=== PATIENT | female | born 1975 | race Caucasian/White ===

== ENCOUNTER 2023-05-20 16:00 | Emergency (ER) | payer OTHER, SELFPAY ==
[2023-05-20 16:04] VITALS: BP 162/102; PULSE 102; RESP 18; TEMP 36.8; O2SAT 99; BMI 54.9
--- NOTE | 2023-05-20 16:22 | ED.URI1 ---
HPI - URI/Sore Throat General Chief Complaint: Upper Respiratory Infection Stated Complaint: COUGH Time Seen by Provider: 05/20/23 16:11 Source: patient History of Present Illness HPI Narrative: patient's here with continued cough congestion. She tested eight or nine times at home for Covid it is negative. One day she felt so bad that she could hardly get out of bed she had such terrible aches and pains and chills. She did not test for influenza. She was on an antibiotic that she was taking. She still today has a little bit of a left earache but no right ear pain. She does not have a sore throat today. She is a nonsmoker. She does have an albuterol inhaler at home but has not been using it. Related Data Allergies Allergy/AdvReac Type Severity Reaction Status Date / Time ibuprofen Allergy Severe Verified 05/20/23 16:11 [facility] Social History Smoking status: Never smoker Exam Narrative Exam Narrative: well-hydrated well-nourished female with some elevation of her blood pressure. She says her blood pressure has been running high and she's got a B and conversation with her primary care doctor about that this coming week. She did not have any nausea vomiting or diarrhea. On HEENT both tympanic membranes are well visualized are normal with no erythema bulging or bullae. Pharynx and airway are normal. She on auscultation of her chest has slight end expiratory wheezing with forced exhalation only otherwise no rales or rhonchi. Heart sounds are normal. Skin integument are warm and dry no evidence dehydration. Constitutional Vital Signs, click to edit/add: Last Vital Signs Temp 98.3 F 05/20/23 16:04 Pulse 102 H 05/20/23 16:04 Resp 18 05/20/23 16:04 BP 162/102 H 05/20/23 16:04 Pulse Ox 99 05/20/23 16:04 O2 Del Method Room Air 05/20/23 16:04 Course Vital Signs Vital signs: Vital Signs Temperature 98.3 F 05/20/23 16:04 Pulse Rate 102 H 05/20/23 16:04 Respiratory Rate 18 05/20/23 16:04 Blood Pressure 162/102 H 05/20/23 16:04 Pulse Oximetry 99 05/20/23 16:04 Oxygen Delivery Method Room Air 05/20/23 16:04 Temperature 98.3 F 05/20/23 16:04 Pulse Rate 102 H 05/20/23 16:04 Respiratory Rate 18 05/20/23 16:04 Blood Pressure 162/102 H 05/20/23 16:04 Pulse Oximetry 99 05/20/23 16:04 Oxygen Delivery Method Room Air 05/20/23 16:04 MDM - URI/Sore Throat MDM Narrative Medical decision making narrative: patient presents status post severe viremia with persisting cough. Pulse oximetry is ninety-nine percent on room air her lungs are clear. I don't believe she'll benefit from a chest x-ray today. I will start her on prednisone burst and also give her some bronchodilators. Discharge Plan Discharge Chief Complaint: Upper Respiratory Infection Clinical Impression: Exacerbation of reactive airway disease Patient Disposition: Home, Self-Care Time of Disposition Decision: 16:25 Additional Instructions: prednisone for seven days/uses inhaler as needed Stand Alone Forms: Portal Instructions
== END 2023-05-20 16:44 | disposition home or self-care (01) ==
PROVIDERS: Emergency Provider Emergency Medicine Emergency Medical Services
DX: J45.901 Unspecified asthma with (acute) exacerbation (principal)
CPT/HCPCS: 99284

== ENCOUNTER 2024-03-17 09:05 | Emergency (ER) | payer OTHER, SELFPAY ==
[2024-03-17 09:10] VITALS: BP 147/77; PULSE 67; TEMP 36.7; O2SAT 100; BMI 54.9
--- OUTSIDE RECORDS SUMMARY | 2024-03-17 09:13 | XMS_ITS | CCD ---
Author Organization [facility] Care Team Providers Care Beauty Consultant Name Role Phone Might, Brianna Chavez Primary Care Provider AL-BRENDA AUSTIN A Referring Unavailable MIGHT, BRIANNA Chavez Primary Care Unavailable Might, Brianna Chavez Primary Care Provider [phone] MightBrianna Primary Care Provider [phone] MightBrianna Primary Care Provider [phone] Might GROUT MACHINE OPERATOR - SAND CONTROL WORKERBrianna Primary Care Provider Kaye Kruse Primary Care Physician DR CRAIG Cantor Admitting Unavailable ERNIE FLORES Consulting Unavailable DR CRAIG BUSTILLO Attending Unavailable PING OWENS Consulting Unavailable Might GROUT MACHINE OPERATOR - SAND CONTROL WORKERBrianna Primary Care Provider Might GROUT MACHINE OPERATOR - SAND CONTROL WORKER, Brianna W Primary Care Provider Might GROUT MACHINE OPERATOR - SAND CONTROL WORKER, Brianna W Primary Care Provider Might GROUT MACHINE OPERATOR - SAND CONTROL WORKERBrianna W Primary Care Provider Nithin Zee Attending Unavailab le Nithin Zee Admitting Unavailab le Unavailable Primary Care Provider Unavailabl e Might GROUT MACHINE OPERATOR - SAND CONTROL WORKERBrianna W Primary Care Provider MIGHT, BRIANNA Chavez Primary Care Unavailable MIGHT, BRIANNA Chavez Primary Care Unavailable JESSICA CHAVES Attending Unavailable MIGHTBRIANNA Primary Care Unavailable JEN HELMS Referring Unavailable MIGHT, BRIANNA Chavez Primary Care Unavailable BRADLY MCCAIN Referring Unavailable MIGHT, BRIANNA Chavez Primary Care Unavailable MIGHT, BRIANNA Chavez Primary Care Unavailable AL-NSWILFREDO, MOHMASHA A Referring Unavailable AL-BRENDA AUSTIN A Referring Unavailable MIGHT, BRIANNA Chavez Primary Care Unavailable MIGHT, BRIANNA Chavez Primary Care Unavailable MIGHT, BRIANNA Chavez Referring Unavailable AL-TELLO, ADNAN R Referring Unavailable MIGHT, BRIANNA W Primary Care Unavailable KALE CARTER Attending Unavailable BRIANNA MITCHELL Primary Care Unavailable JOVAN ALBARRAN Attending Unavailable BRIANNA MITCHELL Primary Care Unavailable WAYNE JOSEPH Referring Unavailable JANELL SIGALA Attending Unavailable WAYNE JOSEPH Attending Unavailable SELF, SELF Referring Unavailable Allergies Allergy Classification Reported Allergen(s) Allergy Type Date of Onset Reaction(s) Facility Bee/Wasp/Ant Venom (8 sources) bee venom Substance Allergy 7 Anaphylaxis [facility] Latex (8 sources) Latex Substance Allergy 4 Hives, Itching, Swelling [facility] Saccharin (7 sources) Saccharin Drug Allergy 8 Other (See Comments) [facility] Work Phone: (20 sources) bee venom Propensity to adverse reactions to drug 7 Anaphylaxis, Swelling [place], [place] (20 sources) Latex Propensity to adverse reactions to drug 4 Hives, Itching, Swelling [place] (20 sources) Saccharin Drug Allergy 8 Other (See Comments) [place] (20 sources) Aspartame And Phenylalanine Propensity to adverse reactions to drug 8 Other (See Comments) [place] (20 sources) Flavoring Agent Propensity to adverse reactions to drug 8 Other (See Comments), Nausea and Vomiting [place] (20 sources) Sucralose Propensity to adverse reactions to drug 8 Other (See Comments) [facility] [place] ([facility] [place]) Latex Drug allergy (disorder) 1 [facility] (2 sources) Ibuprofen Drug Allergy 3 [facility] (2 sources) Propofol Drug Allergy 4 [employer] (2 sources) Wound Dressing Adhesive Propensity to adverse reactions to drug 4 Rash, Swelling [facility] Medications Current Medications Medication Drug Class(es) Dates Sig (Normalized) Sig (Original) acetaminophen 325 mg / HYDROcodone bitartrate 5 mg oral tablet (5 sources) Opioid Agonist Start: 10-23-2020 End: 10-26-2020 HYDROcodone-acetam inophen (NORCO) 5-325 MG per tablet Indications: Pain, dental Take 1 tablet by mouth every 6 hours as needed for Pain for up to 3 days. Intended supply: 3 days. Take lowest dose possible to manage pain 12 tablet 0 10/23/2020 10/26/2020 Active Start: 06-28-2020 hydrocodone-ac etaminophen (NORCO) tablet 5-325 mg (STARTER PACK) Start: 06-28-2020 End: 06-28-2020 HYDROcodone-acetaminophen (N ORCO) 5-325 MG per tablet 2 tablet Start: 11-03-2019 End: 11-03-2019 HYDROcodone-acetaminophen (N ORCO) 5-325 MG per tablet 2 tablet Start: 04-07-2019 End: 04-10-2019 take 1 tablet by mouth every six hours as needed for pain, then take 1 tablet by mouth as needed for pain HYDROcodone-acetaminophen (NORCO) 5-325 MG per tablet Indications: Acute parotitis Take 1 tablet by mouth every 6 hours as needed for Pain for up to 3 days. Intended supply: 3 days. Take lowest dose possible to manage pain 10 tablet 0 04/07/2019 04/10/2019 Active [id number] 200 actuat albuterol 0.09 mg/actuat metered dose inhaler (2 sources) beta2-Adrenergic Agonist Start: 05-01-2023 take 2 puff(s) by mouth four times daily for wheezing albuterol sulfate HFA (PROVENTIL;VENTOLIN;PROAIR) 108 (90 Base) MCG/ACT inhaler inhale 2 puffs by mouth and INTO THE LUNGS four times a day if needed for wheezing 8.5 g 05/01/2023 Active amitriptyline hydrochloride 25 mg oral tablet (13 sources) Tricyclic Antidepressant Start: 07-27-2023 take 1 tablet by mouth once daily amitriptyline (ELAVIL) 25 MG tablet Take 1 tablet by mouth nightly 30 tablet 5 07/27/2023 Active Start: 01-05-2023 take 1 tablet by caesar th once daily amitriptyline (ELAVIL) 25 MG tablet Take 1 tablet by mouth nightly 30 tablet 5 01/05/2023 Active Start: 06-16-2022 End: 07-16-2022 take 1 tablet by mouth once daily amitriptyline (ELAVIL) 25 MG tablet Take 1 tablet by mouth nightly 30 tablet 5 06/16/2022 07/16/2022 Active Start: 07-29-2021 End: 08-28-2021 take 1 tablet by mouth once daily amitriptyline (ELAVIL) 25 MG tablet Indications: Migraines Take 1 tablet by mouth nightly 30 tablet 5 07/29/2021 08/28/2021 Active Start: 01-11-2021 take 1 tablet by caesar th once daily amitriptyline (ELAVIL) 25 MG tablet Indications: Chronic migraine Take 1 tablet by mouth nightly 30 tablet 5 01/11/2021 Active Start: 06-11-2020 End: 09-16-2020 take 1 tablet by mouth once daily amitriptyline (ELAVIL) 25 MG tablet Indications: Chronic migraine Take 1 tablet by mouth nightly 30 tablet 2 08/17/2020 09/16/2020 Active amoxicillin 875 mg oral tablet (2 sources) Penicillin-class Antibacterial Start: 02-02-2019 End: 02-12-2019 take 1 tablet by mouth twice daily amoxicillin (AMOXIL) 875 MG tablet Take 1 tablet by mouth 2 times daily for 10 days 20 tablet 0 02/02/2019 02/12/2019 Active Start: 02-02-2019 End: 02-02-2019 amoxicillin (AMOXIL) capsule 500 mg azelastine hydrochloride 0.137 mg/actuat metered dose nasal spray (1 source) Histamine-1 Receptor Antagonist Start: 02-19-2023 take 2 spray(s) nasal route twice daily azelastine (ASTELIN) 0.1 % nasal spray 2 sprays by Nasal route 2 times daily Use in each nostril as directed 30 mL 0 02/19/2023 Active B-D 3CC LUER-MARYANNE SYR 25GX1 25G X 1 3 ML MISC (1 source) Start: 08-18-2023 B-D 3CC LUER-MARYANNE SYR 25GX1 25G X 1 3 ML MISC use as directed 08/18/2023 Active benzonatate 200 mg oral capsule (1 source) Non-narcotic Antitussive Start: 04-04-2020 End: 04-14-2020 take 1 capsule by mouth three times daily as needed for cough benzonatate (TESSALON) 200 MG capsule Take 1 capsule by mouth 3 times daily as needed for Cough 30 capsule 0 04/04/2020 04/14/2020 Active Blood Pressure Monitor MISC (2 sources) Start: 07-21-2022 Blood Pressure Monitor MISC Indications: Transient elevated blood pressure 1 each by Does not apply route daily 1 each 07/21/2022 Active Start: 07-21-2022 Blood Pressure Monitor MISC Indications: Transient elevated blood pressure 1 each by Does not apply route daily 1 each 0 07/21/2022 Active busPIRone hydrochloride 15 mg oral tablet (20 sources) Start: 07-20-2022 take 1 tablet by mouth at bedtime busPIRone (BUSPAR) 15 MG tablet Take 15 mg by mouth in the morning and at bedtime 07/20/2022 Active Start: 03-17-2022 take 1 tablet by caesar th twice daily busPIRone (BUSPAR) 7.5 MG tablet take 1 tablet by mouth twice a day 0 03/17/2022 Active Start: 06-11-2021 busPIRone (BUS PAR) 5 MG tablet 5 mg daily 0 06/11/2021 Active Start: 06-11-2020 take 1 tablet by caesar th twice daily busPIRone (BUSPAR) 10 MG tablet Indications: Anxiety and depression Take 1 tablet by mouth 2 times daily 180 tablet 1 06/11/2020 Active Start: 12-23-2019 take 1 tablet by caesar th twice daily busPIRone (BUSPAR) 30 MG tablet Indications: Anxiety and depression take 1 tablet by mouth twice a day 180 tablet 1 12/23/2019 Active Start: 05-31-2019 take 1 tablet by caesar th twice daily busPIRone (BUSPAR) 30 MG tablet Indications: Anxiety and depression take 1 tablet by mouth twice a day 180 tablet 1 05/31/2019 Active Start: 10-24-2018 take 1 tablet by caesar th twice daily busPIRone (BUSPAR) 30 MG tablet Indications: Anxiety and depression take 1 tablet by mouth twice a day 180 tablet 3 10/24/2018 Active calcium carbonate 648 mg oral tablet (3 sources) Start: 11-25-2020 End: 11-25-2021 take 1 tablet by mouth three times daily calcium carbonate 648 MG TABS Indications: Hypocalcemia Take 1 tablet by mouth 3 times daily 90 tablet 0 11/25/2020 11/25/2021 Active take 1 tablet by mouth three gómez es daily calcium carbonate 650 mg calcium (1,625 mg) tablet take 1 tablet by oral route 3 times a day cephalexin 500 mg oral capsule (2 sources) Cephalosporin Antibacterial Start: 02-01-2024 End: 02-08-2024 take 1 capsule by mouth three times daily cephALEXin (KEFLEX) 500 MG capsule Take 1 capsule by mouth 3 times daily for 7 days 21 capsule 02/01/2024 02/08/2024 Active Start: 02-01-2024 End: 02-01-2024 take 1 dose by mouth once 500 mg, Oral, ONCE, 1 dose, On Mari 02/01/24 at 0100, Antimicrobial Indications: Urinary Tract Infection cholecalciferol 0.125 mg oral tablet (3 sources) Vitamin D Start: 11-25-2020 take 1 tablet by mouth once daily vitamin D-3 (CHOLECALCIFEROL) 125 MCG (5000 UT) TABS Take 1 tablet by mouth daily 90 tablet 0 11/26/2020 Active ciprofloxacin 250 mg oral tablet (1 source) Quinolone Antimicrobial Start: 07-24-2023 End: 07-29-2023 take 1 tablet by mouth twice daily ciprofloxacin (CIPRO) 250 MG tablet Indications: Acute UTI Take 1 tablet by mouth 2 times daily for 5 days 10 tablet 0 07/24/2023 07/29/2023 Active dicyclomine hydrochloride 20 mg oral tablet (20 sources) Anticholinergic Start: 05-21-2021 take 1 tablet by mouth three times daily for diarrhea dicyclomine (BENTYL) 20 MG tablet Indications: Irritable bowel syndrome with diarrhea take 1 tablet by mouth three times a day if needed for cramping and diarrhea 90 tablet 2 10/25/2023 Active Start: 11-13-2019 End: 09-22-2020 take 1 tablet by mouth every four hours as needed for pain dicyclomine (BENTYL) 20 MG tablet Take 1 tablet by mouth every 4 hours as needed (Abdominal pain) 30 tablet 0 09/22/2020 Active doxepin hydrochloride 25 mg oral capsule (1 source) Tricyclic Antidepressant Start: 01-15-2021 take 1 capsule by mouth three times daily for anxiety doxepin (SINEQUAN) 25 MG capsule take 1 capsule by mouth three times a day if needed for anxiety 0 01/15/2021 Active ergocalciferol 1.25 mg oral capsule (15 sources) Provitamin D2 Compound Start: 10-01-2019 take 1 capsule by mouth every week vitamin D (ERGOCALCIFEROL) 1.25 MG (99412 UT) CAPS capsule Take 1 capsule by mouth once a week 12 capsule 1 10/01/2019 Active Start: 07-18-2019 take 1 capsule by mo uth every week vitamin D (ERGOCALCIFEROL) 1.25 MG (71705 UT) CAPS capsule Take 1 capsule by mouth once a week 12 capsule 1 07/18/2019 Active etodolac 400 mg oral tablet (3 sources) Nonsteroidal Anti-inflammatory Drug Start: 11-13-2019 take 1 tablet by mouth twice daily etodolac (LODINE) 400 MG tablet Take 1 tablet by mouth 2 times daily 30 tablet 0 11/13/2019 Active FLUoxetine 10 mg oral capsule (4 sources) Serotonin Reuptake Inhibitor Start: 03-20-2023 take 1 capsule by mouth once daily FLUoxetine (PROZAC) 10 MG capsule Take 1 capsule by mouth nightly 03/20/2023 Active gabapentin 300 mg oral capsule (1 source) Anti-epileptic Agent Start: 05-26-2022 gabapentin (NEURONTIN) 300 MG capsule hydrOXYzine pamoate 50 mg oral capsule (2 sources) Antihistamine Start: 03-16-2022 take 1 capsule by mouth three times daily hydrOXYzine pamoate (VISTARIL) 50 MG capsule take 1 TO 2 capsules by mouth up to three times a day if needed for anxiety 0 03/16/2022 Active Start: 08-05-2019 End: 09-04-2019 take 1 tablet by mouth every eight hours as needed for anxiety hydrOXYzine (ATARAX) 25 MG tablet Indications: Anxiety and depression Take 1 tablet by mouth every 8 hours as needed for Anxiety 90 tablet 0 08/05/2019 09/04/2019 Active lidocaine 0.05 mg/mg medicated patch (2 sources) Antiarrhythmic, Amide Local Anesthetic Start: 11-03-2019 End: 11-13-2019 lidocaine (LIDODERM) 5 % Place 1 patch onto the skin daily for 10 days 12 hours on, 12 hours off. 10 patch 0 11/03/2019 11/13/2019 Active lisinopril 20 mg oral tablet (4 sources) Angiotensin Converting Enzyme Inhibitor Start: 08-08-2023 take 1 tablet by mouth once daily lisinopril (PRINIVIL;ZESTRIL) 20 MG tablet Indications: Primary hypertension Take 1 tablet by mouth daily 90 tablet 3 08/08/2023 Active Start: 07-24-2023 take 1 tablet by caesar th once daily lisinopril (PRINIVIL;ZESTRIL) 10 MG tablet Indications: Primary hypertension Take 1 tablet by mouth daily 90 tablet 1 07/24/2023 Active lurasidone hydrochloride 80 mg oral tablet (20 sources) Atypical Antipsychotic Start: 09-20-2023 take 1 tablet by mouth once daily lurasidone (LATUDA) 80 MG TABS tablet Take 1 tablet by mouth nightly 09/20/2023 Active Start: 03-20-2023 lurasidone (LA TUDA) 60 MG TABS tablet Take 1 tablet by mouth 0 03/20/2023 Active Start: 01-19-2021 take 1 tablet by caesar th once daily at mealtime LATUDA 40 MG TABS tablet take 1 tablet by mouth once daily with food AT LEAST 350 CALORIES 0 01/19/2021 Active Start: 06-18-2019 take 1 tablet by caesar th once daily at mealtime LATUDA 20 MG TABS tablet Indications: Anxiety and depression take 1 tablet by mouth once daily with food 90 tablet 1 04/10/2020 Active lurasidone HCl ( Latuda) 80 MG tablet Take 40 mg by mouth daily with dinner. Active Magic Mouthwash (MIRACLE MOUTHWASH) (9 sources) Start: 02-02-2019 Magic Mouthwas h (MIRACLE MOUTHWASH) Swish and spit 5 mLs 4 times daily as needed for Irritation 240 mL 0 02/02/2019 Active Start: 12-24-2018 Magic Mouthwas h (MIRACLE MOUTHWASH) 1 part viscous lidocaine 2% +1 part Maalox +1 part diphenhydramine 12.5 mg per 5 mL elixir Swish, gargle and spit 1-2 teaspoonfuls every 6 hours as needed for sore throat. 240 mL 0 12/24/2018 Active methylPREDNISolone 4 mg oral tablet (1 source) Corticosteroid Start: 11-25-2020 End: 12-01-2020 methylPREDNISolone (MEDROL DOSEPACK) 4 MG tablet Take by mouth. 1 kit 0 11/25/2020 12/01/2020 Active mirtazapine 15 mg oral tablet (1 source) Start: 05-26-2022 mirtazapine (R EMERON) 15 MG tablet NEEDLE, DISP, 25 G 25G X 1 MISC (19 sources) Start: 01-05-2022 NEEDLE, DISP, 25 G 25G X 1 MISC Use for B12 injections daily for 5 days, then weekly for 4 weeks, then monthly 25 each 01/05/2022 Active Start: 07-22-2020 NEEDLE, DISP, 25 G 25G X 1 MISC Use for B12 injection monthly 10 each 07/22/2020 Active Nerve Stimulator (TENS THERA PY REPLACE BACK PADS) MISC (20 sources) Start: 11-25-2020 Nerve Stimulat or (TENS THERAPY REPLACE BACK PADS) MISC Indications: Osteoarthritis of spine, unspecified spinal osteoarthritis complication status, unspecified spinal region , Chronic bilateral low back pain with right-sided sciatica 1 each by Does not apply route as needed (back pain) 10 each 11/25/2020 Active Start: 11-25-2020 Nerve Stimulat or (TENS THERAPY REPLACE BACK PADS) MISC Indications: Osteoarthritis of spine, unspecified spinal osteoarthritis complication status, unspecified spinal region , Chronic bilateral low back pain without sciatica 1 each by Does not apply route as needed (back pain) 10 each 11/25/2020 Active Start: 06-11-2020 Nerve Stimulat or (TENS THERAPY REPLACE BACK PADS) MISC Indications: Chronic bilateral low back pain without sciatica 1 each by Does not apply route as needed (back pain) 10 each 06/11/2020 Active nystatin 100 unt/mg topical ointment (18 sources) Polyene Antifungal Start: 07-24-2023 nystatin (M YCOSTATIN) 587083 UNIT/GM ointment Apply topically 2 times daily. 30 g 07/24/2023 Active Start: 01-03-2022 nystatin (MYCO STATIN) 224140 UNIT/GM ointment Indications: Candidal intertrigo Apply topically 2 times daily. 30 g 0 01/03/2022 Active Start: 11-25-2020 nystatin (MYCO STATIN) 617253 UNIT/GM cream Apply topically 2 times daily. 30 g 0 11/25/2020 Active Start: 11-03-2019 nystatin (MYCO STATIN) 491845 UNIT/GM cream Apply topically 2 times daily. 30 g 0 11/03/2019 Active nystatin 100,000 unit/gram topical cream apply to the affected area(s) by topical route 2 times per day as needed ondansetron 4 mg disintegrating oral tablet (20 sources) Serotonin-3 Receptor Antagonist Start: 02-01-2024 take 1 tablet by mouth three times daily as needed for nausea ondansetron (ZOFRAN-ODT) 4 MG disintegrating tablet Take 1 tablet by mouth 3 times daily as needed for Nausea or Vomiting 20 tablet 02/01/2024 Active Start: 01-31-2024 End: 01-31-2024 4 mg, IntraVENous, ONCE, 1 d ose, On Mon01/31/24 at 2200 Start: 02-10-2022 take 1 tablet by caesar th every four hours as needed for nausea ondansetron (ZOFRAN) 4 MG tablet Take 1 tablet by mouth every 4 hours as needed for Nausea or Vomiting 12 tablet 02/10/2022 Active Start: 07-06-2021 take 1 tablet by caesar th every four hours as needed for nausea ondansetron (ZOFRAN) 4 MG tablet Take 1 tablet by mouth every 4 hours as needed for Nausea or Vomiting 12 tablet 0 07/06/2021 Active Start: 11-25-2020 take 1 tablet by caesar th every four hours as needed for nausea ondansetron (ZOFRAN) 4 MG tablet Take 1 tablet by mouth every 4 hours as needed for Nausea or Vomiting 12 tablet 0 11/25/2020 Active Start: 06-28-2020 End: 07-18-2020 take 1 tablet by mouth every eight hours as needed for nausea ondansetron (ZOFRAN ODT) 4 MG disintegrating tablet Take 1 tablet by mouth every 8 hours as needed for Nausea or Vomiting 20 tablet 0 06/28/2020 07/18/2020 Active Start: 11-13-2019 take 1 tablet by caesar th every four hours as needed for nausea ondansetron (ZOFRAN) 4 MG tablet Take 1 tablet by mouth every 4 hours as needed for Nausea or Vomiting 15 tablet 0 11/13/2019 Active Start: 11-13-2019 End: 11-13-2019 ondansetron (ZOFRAN) injecti on 4 mg Start: 06-23-2019 End: 08-09-2019 take 1 tablet by mouth every eight hours as needed for nausea ondansetron (ZOFRAN ODT) 4 MG disintegrating tablet Take 1 tablet by mouth every 8 hours as needed for Nausea or Vomiting 15 tablet 0 06/23/2019 08/09/2019 Discontinued (Therapy completed) Start: 03-20-2018 End: 02-02-2019 take 1 tablet by mouth every eight hours as needed for nausea ondansetron (ZOFRAN ODT) 4 MG disintegrating tablet Take 1 tablet by mouth every 8 hours as needed for Nausea or Vomiting 20 tablet 0 03/20/2018 02/02/2019 Discontinued (LIST CLEANUP) take 1 tablet by caesar th every eight hours as needed Ondansetron 4 MG tablet Take 1 tablet by mouth every 8 hours as needed for Nausea / Vomiting. Active penicillin v potassium 500 mg oral tablet (2 sources) Start: 10-23-2020 End: 11-02-2020 take 1 tablet by mouth three times daily penicillin v potassium (VEETID) 500 MG tablet Take 1 tablet by mouth 3 times daily for 10 days 30 tablet 0 10/23/2020 11/02/2020 Active phentermine hydrochloride 37.5 mg oral tablet (1 source) Sympathomimetic Amine Anorectic Start: 02-22-2024 End: 03-23-2024 take 1 tablet by mouth once daily before breakfast phentermine 37.5 MG tablet Indications: Morbid obesity with body mass index of 50 or higher Take 1 tablet by mouth every morning before breakfast. 30 tablet 02/22/2024 03/23/2024 Active polymyxin b 42835 unt/ml / trimethoprim 1 mg/ml ophthalmic solution (1 source) Dihydrofolate Reductase Inhibitor Antibacterial, Polymyxin-class Antibacterial Start: 06-20-2022 End: 06-30-2022 take 1 drop(s) into the eye(s) every four hours trimethoprim-po lymyxin b (POLYTRIM) 85333-4.1 UNIT/ML-% ophthalmic solution Place 1 drop into both eyes every 4 hours for 10 days 10 mL 0 06/20/2022 06/30/2022 Active Vit-Fe Fumarate-FA (PRENATABS FA) 29-1 MG TABS (9 sources) Start: 07-14-2020 take 1 tablet by mouth once daily Vit-Fe Fumarate-FA (PRENATABS FA) 29-1 MG TABS Indications: Iron deficiency anemia, unspecified iron deficiency anemia type Take 1 tablet by mouth daily 90 tablet 0 07/14/2020 Active propranolol hydrochloride 20 mg oral tablet (13 sources) beta-Adrenergic Patrick Start: 01-27-2021 take 1 tablet by mouth twice daily for anxiety propranolol (INDERAL) 20 MG tablet take 1 tablet by mouth up to twice a day if needed for anxiety 01/27/2021 Active sodium chloride flush 0.9 % injection 3 mL (1 source) Start: 01-31-2024 sodium chloride flush 0.9 % injection 3 mL sulfamethoxazole 800 mg / trimethoprim 160 mg oral tablet (1 source) Dihydrofolate Reductase Inhibitor Antibacterial, Sulfonamide Antimicrobial Start: 04-07-2019 End: 04-14-2019 take 1 tablet by mouth twice daily sulfamethoxazol e-trimethoprim (BACTRIM DS;SEPTRA DS) 800-160 MG per tablet Take 1 tablet by mouth 2 times daily for 7 days 14 tablet 0 04/07/2019 04/14/2019 Active SUMAtriptan 50 mg oral tablet (7 sources) Serotonin-1b and Serotonin-1d Receptor Agonist Start: 02-12-2021 SUMAtriptan (IMITREX) tablet 50 mg Start: 01-11-2021 take 1 tablet by caesar th once as needed SUMAtriptan (IMITREX) 50 MG tablet Take 1 tablet by mouth once as needed for Migraine 9 tablet 3 06/16/2022 Active SYRINGE-NEEDLE, DISP, 3 ML ( B-D INTE[employer]RA SYRINGE) 22G X 1-1/2 3 ML Misc (2 sources) Tens Unit MISC (17 sources) Start: 11-25-2020 Tens Unit MISC Indications: Osteoarthritis of spine, unspecified spinal osteoarthritis complication status, unspecified spinal region by Does not apply route 1 each 0 11/25/2020 Active Start: 11-25-2020 Tens Unit MISC Indications: Osteoarthritis of spine, unspecified spinal osteoarthritis complication status, unspecified spinal region , Chronic bilateral low back pain without sciatica by Does not apply route 1 each 0 11/25/2020 Active Start: 06-11-2020 Tens Unit MISC Indications: Chronic bilateral low back pain without sciatica by Does not apply route 1 each 0 06/11/2020 Active tiZANidine 4 mg oral tablet (20 sources) Central alpha-2 Adrenergic Agonist Start: 11-09-2023 take 1 tablet by mouth once daily at bedtime tiZANidine (ZANAFLEX) 4 MG tablet Indications: Chronic bilateral low back pain without sciatica take 1 tablet by mouth every morning and at bedtime 60 tablet 5 11/09/2023 Active Start: 06-05-2023 take 1 tablet by caesar once daily at bedtime tiZANidine (ZANAFLEX) 4 MG tablet Indications: Chronic bilateral low back pain without sciatica take 1 tablet by mouth every morning and at bedtime 60 tablet 5 06/05/2023 Active Start: 05-27-2022 take 1 tablet by caesar twice daily for muscle spasms tiZANidine (ZANAFLEX) 4 MG tablet Indications: Chronic bilateral low back pain without sciatica take 1 tablet by mouth twice a day if needed for SPASM(S) 60 tablet 2 05/27/2022 Active Start: 10-19-2021 take 1 tablet by caesar twice daily for muscle spasms tiZANidine (ZANAFLEX) 4 MG tablet Indications: Chronic bilateral low back pain without sciatica take 1 tablet by mouth twice a day if needed for SPASM(S) 180 tablet 0 10/19/2021 Active Start: 07-20-2021 take 1 tablet by caesar twice daily as needed for muscle spasms tiZANidine (ZANAFLEX) 4 MG tablet Indications: Chronic bilateral low back pain without sciatica Take 1 tablet by mouth 2 times daily as needed (spasm) 180 tablet 0 07/20/2021 Active Start: 04-23-2021 take 1 tablet by caesar twice daily as needed for muscle spasms tiZANidine (ZANAFLEX) 4 MG tablet Indications: Chronic bilateral low back pain without sciatica Take 1 tablet by mouth 2 times daily as needed (spasm) 180 tablet 0 04/23/2021 Active Start: 07-14-2020 take 1 tablet by caesar twice daily as needed for muscle spasms tiZANidine (ZANAFLEX) 4 MG tablet Indications: Chronic bilateral low back pain without sciatica Take 1 tablet by mouth 2 times daily as needed (spasm) 180 tablet 0 02/05/2021 Active Start: 03-19-2020 take 1 tablet by caesar th once daily as needed for muscle spasms tiZANidine (ZANAFLEX) 4 MG tablet Indications: Chronic bilateral low back pain without sciatica Take 1 tablet by mouth nightly as needed (spasm) 90 tablet 3 03/19/2020 Active Start: 11-03-2019 End: 11-13-2019 take 1 tablet by mouth every eight hours as needed for pain tiZANidine (ZANAFLEX) 4 MG tablet Take 1 tablet by mouth every 8 hours as needed (Back pain) 12 tablet 0 11/03/2019 11/13/2019 Discontinued (Therapy completed) Start: 08-31-2019 take 1 tablet by caesar th once daily as needed for muscle spasms tiZANidine (ZANAFLEX) 4 MG tablet Indications: Chronic bilateral low back pain without sciatica Take 1 tablet by mouth nightly as needed (spasm) 30 tablet 2 08/31/2019 Active Start: 07-03-2019 take 1 tablet by caesar th once daily as needed for muscle spasms tiZANidine (ZANAFLEX) 4 MG tablet Indications: Chronic bilateral low back pain without sciatica Take 1 tablet by mouth nightly as needed (spasm) 30 tablet 0 08/02/2019 Active Start: 05-31-2019 take 1 tablet by caesar th once daily as needed for muscle spasms tiZANidine (ZANAFLEX) 4 MG tablet Indications: Chronic bilateral low back pain without sciatica Take 1 tablet by mouth nightly as needed (spasm) 30 tablet 0 05/31/2019 Active Start: 07-26-2018 take 1 tablet by caesar th once daily as needed for muscle spasms tiZANidine (ZANAFLEX) 4 MG tablet Indications: Chronic bilateral low back pain without sciatica Take 1 tablet by mouth nightly as needed (spasm) 30 tablet 5 07/26/2018 Active take 1 capsule by mo [facility] twice daily as needed tizanidine 4 mg capsule take 1 capsule (4 mg) by oral route twice daily as needed traMADol hydrochloride 50 mg oral tablet (1 source) Opioid Agonist Start: 12-29-2021 End: 01-01-2022 traMADol (ULTRAM) 50 MG tablet Indications: Strain of left shoulder, initial encounter Take 1 tablet by mouth every 6 hours as needed for Pain for up to 3 days. Intended supply: 3 days. Take lowest dose possible to manage pain 12 tablet 0 12/29/2021 01/01/2022 Active triamcinolone acetonide 0.25 mg/ml topical cream (3 sources) Corticosteroid Start: 01-03-2022 triamcinolone (KENALOG) 0.025 % cream Indications: Hand eczema Apply topically 2 times daily. 15 g 01/03/2022 Active TUBERCULIN SYR 1CC/25GX5/8 25G X 5/8 1 ML MISC (20 sources) Start: 03-13-2017 TUBERCULIN SYR 1CC/25GX5/8 25G X 5/8 1 ML MISC Inject 1 mL into the skin every 14 days 24 each 0 03/13/2017 Active 24 hr venlafaxine 150 mg extended release oral capsule (20 sources) Serotonin and Norepinephrine Reuptake Inhibitor Start: 08-03-2023 take 2 capsules by mouth once daily venlafaxine (EFFEXOR XR) 150 MG extended release capsule Take 2 capsules by mouth daily 08/03/2023 Active Start: 06-11-2020 take 1 capsule by mo ut once daily venlafaxine (EFFEXOR XR) 150 MG extended release capsule Indications: Anxiety and depression take 1 capsules by mouth once daily 90 capsule 1 06/11/2020 Active Start: 06-11-2020 take 1 capsule by mo ut once daily venlafaxine (EFFEXOR XR) 75 MG extended release capsule Indications: Anxiety and depression Take 1 capsule by mouth daily 90 capsule 1 06/11/2020 Active Start: 11-25-2019 take 1 capsule by mo uth once daily venlafaxine (EFFEXOR XR) 150 MG extended release capsule Indications: Anxiety and depression take 1 capsules by mouth once daily 90 capsule 1 11/25/2019 Active Start: 11-25-2019 take 1 capsule by mo uth once daily venlafaxine (EFFEXOR XR) 75 MG extended release capsule Indications: Anxiety and depression take 1 capsule by mouth once daily 90 capsule 1 11/25/2019 Active Start: 05-31-2019 take 1 capsule by mo uth once daily venlafaxine (EFFEXOR XR) 150 MG extended release capsule Indications: Anxiety and depression Take 1 capsule by mouth daily 90 capsule 1 05/31/2019 Active Start: 05-31-2019 take 1 capsule by mo uth once daily venlafaxine (EFFEXOR XR) 75 MG extended release capsule Indications: Anxiety and depression take 1 capsule by mouth once daily 90 capsule 1 05/31/2019 Active Start: 07-26-2018 take 1 capsule by mo [facility] once daily venlafaxine (EFFEXOR XR) 150 MG extended release capsule Indications: Anxiety and depression Take 1 capsule by mouth daily 90 capsule 3 07/26/2018 Active Start: 02-06-2018 take 1 capsule by mo [facility] once daily venlafaxine (EFFEXOR XR) 75 MG extended release capsule Indications: Anxiety and depression take 1 capsule by mouth once daily TAKE WITH VENLAFAXINE 150 MG FOR A TOTAL DOSE OF 225 MGS 90 capsule 3 02/06/2018 Active take 1 capsule by mo [facility] twice daily venlafaxine 150 MG Cap SR 24HR capsule XR Take 1 capsule by mouth 2 times daily. Active take 1 tablet by [facility] once daily at mealtime venlafaxine 75 mg tablet take 1 tablet (75 mg) by oral route 1times per day with food [facility] venlafaxine ER 150 mg tablet,extended release 24 hr take 1 tablet (150 mg) by oral route once daily in the morning at the same time each day with food Vitamin B 12 (20 sources) Vitamin B12 Start: 08-16-2023 cyanocobalamin 1000 MCG/ML injection Inject 1 mL into the muscle every 30 days 3 mL 3 08/16/2023 Active Start: 08-16-2021 cyanocobalamin 1000 MCG/ML injection Indications: B12 deficiency Inject 1 mL into the muscle every 30 days 1 mL 11 08/16/2021 Active Start: 08-16-2021 cyanocobalamin 1000 MCG/ML injection Indications: B12 deficiency Inject 1 mL into the muscle every 30 days 1 mL 11 08/16/2021 Active Start: 07-22-2020 cyanocobalamin 1000 MCG/ML injection Indications: B12 deficiency Inject 1 mL into the muscle every 30 days 1 mL 20 07/22/2020 Active Start: 07-18-2019 cyanocobalamin 1000 MCG/ML injection Inject 1 mL into the muscle every 30 days 10 mL 3 07/18/2019 Active Start: 06-30-2016 End: 06-23-2019 cyanocobalamin 1000 MCG/ML injection Inject 1 ml IM weekly X 4 then every 4 weeks 25 mL 0 06/30/2016 06/23/2019 Discontinued (LIST CLEANUP) Start: 06-30-2016 cyanocobalamin 1000 MCG/ML injection Inject 1 ml IM weekly X 4 then every 4 weeks 25 mL 0 06/30/2016 Active inject 0.05 mL by in tramuscular injection every month cyanocobalamin (vit B-12) 1,000 mcg/mL injection solution inject 0.05 milliliter (50 mcg) by intramuscular route once a month Completed/Discontinued Medications Medication Drug Class(es) Dates Sig (Normalized) Sig (Original) acetaminophen 325 mg oral tablet (8 sources) Start: 01-31-2024 End: 01-31-2024 take 4000 mg by mouth every twenty-four hours 650 mg, Oral, ONCE, 1 dose, On Mon01/31/24 at 2345, Maximum dose of acetaminophen is 4000 mg from all sources in 24 hours. Start: 06-27-2022 End: 06-27-2022 acetaminophen (TYLENOL) tabl et 650 mg End: 06-23-2019 take 2 tablets by mouth every six hours as needed for pain acetaminophen (TYLENOL) 500 MG tablet Take 1,000 mg by mouth every 6 hours as needed for Pain 0 06/23/2019 Discontinued (LIST CLEANUP) aspirin 325 mg oral tablet (1 source) Platelet Aggregation Inhibitor, Nonsteroidal Anti-inflammatory Drug Start: 06-23-2019 End: 06-23-2019 aspirin tablet 325 mg azithromycin 250 mg oral tablet (1 source) Macrolide Antimicrobial Start: 11-03-2019 End: 11-03-2019 azithromycin (ZITHROMAX) tablet 1,000 mg cefTRIAXone 250 mg injection (1 source) Cephalosporin Antibacterial Start: 11-03-2019 End: 11-03-2019 cefTRIAXone (ROCEPHIN) injection 250 mg dexamethasone phosphate 10 mg/ml injectable solution (1 source) Corticosteroid Start: 04-04-2020 End: 04-04-2020 dexamethasone (DECADRON) injection 10 mg 1 ml diphenhydrAMINE hydrochloride 50 mg/ml cartridge (1 source) Histamine-1 Receptor Antagonist Start: 06-27-2022 End: 06-27-2022 diphenhydrAMINE (BENADRYL) injection 50 mg 2 ml fentaNYL 0.05 mg/ml injection (2 sources) Opioid Agonist Start: 01-31-2024 End: 01-31-2024 take 1 dose by mouth every hour 25 mcg, IntraVENous, ONCE, 1 dose, On Mon01/31/24 at 2200, If oral and IV narcotics ordered, use oral first and only use IV if oral is ineffective or cannot take oral. Do Not give oral and IV within 1 hour of each other unless specifically ordered. Start: 11-13-2019 End: 11-13-2019 fentaNYL (SUBLIMAZE) injecti on 100 mcg ferric carboxymaltose (INJECTAFER) 750 mg in sodium chloride 0.9 % 250 mL IVPB (2 sources) Start: 08-09-2019 End: 08-09-2019 ferric carboxymaltose (INJECTAFER) 750 mg in sodium chloride 0.9 % 250 mL IVPB Start: 08-01-2019 End: 08-01-2019 ferric carboxymaltose (INJEC TAFER) 750 mg in sodium chloride 0.9 % 250 mL IVPB ibuprofen 800 mg oral tablet (2 sources) Nonsteroidal Anti-inflammatory Drug Start: 11-03-2019 End: 11-13-2019 take 1 tablet by mouth every eight hours as needed for pain ibuprofen (ADVIL;MOTRIN) 800 MG tablet Take 1 tablet by mouth every 8 hours as needed for Pain 30 tablet 0 11/03/2019 11/13/2019 Discontinued iopamidol (ISOVUE-370) 76 % injection 18 mL (1 source) Start: 11-13-2019 End: 11-13-2019 iopamidol (ISOVUE-370) 76 % injection 18 mL iopamidol (ISOVUE-370) 76 % injection 75 mL (3 sources) Start: 01-31-2024 End: 01-31-2024 take 1 dose intravenously once 75 mL, IntraVENous, IMG ONCE PRN, 1 dose, Starting on Mon01/31/24 at 2238, Until Mon01/31/24 at 2243, Other Start: 06-27-2022 End: 06-27-2022 iopamidol (ISOVUE-370) 76 % injection 75 mL Start: 11-13-2019 End: 11-13-2019 iopamidol (ISOVUE-370) 76 % injection 75 mL 1 ml ketorolac tromethamine 15 mg/ml cartridge (1 source) Nonsteroidal Anti-inflammatory Drug, Cyclooxygenase Inhibitor Start: 04-04-2020 End: 04-04-2020 ketorolac (TORADOL) injection 30 mg mupirocin 0.02 mg/mg topical ointment (2 sources) RNA Synthetase Inhibitor Antibacterial Start: 10-23-2020 End: 10-30-2020 mupirocin (BACTROBAN) 2 % ointment Apply topically 3 times daily. 22 g 0 10/23/2020 10/30/2020 naproxen 500 mg oral tablet (2 sources) Nonsteroidal Anti-inflammatory Drug Start: 10-11-2018 End: 02-02-2019 take 1 tablet by mouth twice daily naproxen (NAPROSYN) 500 MG tablet Take 1 tablet by mouth 2 times daily 14 tablet 0 10/11/2018 02/02/2019 Discontinued (LIST CLEANUP) 2 ml orphenadrine citrate 30 mg/ml injection (1 source) Muscle Relaxant Start: 11-03-2019 End: 11-03-2019 orphenadrine (NORFLEX) injection 60 mg 28 mg iron-800 mcg tablet (1 source) take 1 tablet by mouth once daily 28 mg iron-800 mcg tablet take 1 tablet by oral route daily 2 ml prochlorperazine 5 mg/ml injection (1 source) Phenothiazine Start: 06-27-2022 End: 06-27-2022 prochlorperazine (COMPAZINE) injection 10 mg 50 ml sodium chloride 9 mg/ml injection (8 sources) Start: 01-31-2024 End: 01-31-2024 1,000 mL (7.11 mL/kg), IntraVENous, at 1,935.5 mL/hr, Administer over 31 Minutes, ONCE, On Mon01/31/24 at 2130, For 1 dose, For adult patients weighing > 55 kg (120 lbs.) and less than Start: 06-27-2022 End: 06-27-2022 0.9 % sodium chloride bolus Start: 11-13-2019 0.9 % sodium c hloride infusion Start: 08-09-2019 End: 08-10-2019 sodium chloride flush 0.9 % injection 10 mL Start: 08-09-2019 End: 08-09-2019 0.9 % sodium chloride infusi on Start: 08-01-2019 End: 08-02-2019 sodium chloride flush 0.9 % injection 10 mL Start: 08-01-2019 End: 08-01-2019 0.9 % sodium chloride infusi on Start: 06-23-2019 End: 06-23-2019 0.9 % sodium chloride bolus Problems Active Problems Problem Classification Problem Date Documented Da te Episodic/Chronic Abdominal hernia (20 sources) Intra-abdominal hernia; Translations: [Other specified abdominal hernia without obstruction or gangrene] 01-26-2017 Episodic Abdominal pain (20 sources) Abdominal pain; Translations: [Unspecified abdominal pain] Onset: 11-13-2019 11-13-2019 Episodic Allergic reactions (2 sources) Atopic dermatitis; Translations: [Intrinsic (allergic) eczema] Onset: 07-21-2022 07-21-2022 Chronic Anxiety disorders (20 sources) Anxiety; Translations: [Mixed anxiety and depressive disorder] Onset: 06-20-2016 03-19-2018 Chronic Deficiency and other anemia (1 source) Anemia, unspecified Episodic Diabetes mellitus without complication (2 sources) Type 2 diabetes mellitus without complication; Translations: [Type 2 diabetes mellitus without complications] 01-23-2024 Chronic Essential hypertension (2 sources) Essential hypertension; Translations: [Essential (primary) hypertension] Onset: 07-28-2023 01-23-2024 Chronic External cause codes: Fall (1 source) Fall; Translations: [Fall, initial encounter] Headache; including migraine (3 sources) Transformed migraine; Translations: [Migraine with aura, not intractable, without status migrainosus] Onset: 01-03-2022 01-03-2022 Chronic Headache; including migraine (2 sources) Headache; Translations: [Nonintractable headache, unspecified chronicity pattern, unspecified headache type] Episodic Heart valve disorders (1 source) Cardiac murmur, unspecified Episodic Intestinal obstruction without hernia (20 sources) Intestinal obstruction; Translations: [Obstruction of small intestine co-occurrent and due to peritoneal adhesions] Onset: 03-19-2018 03-19-2018 Episodic Intestinal obstruction without hernia (14 sources) Obstruction of small intestine co-occurrent and due to peritoneal adhesions; Translations: [Small bowel obstruction due to adhesions] 03-19-2018 Nonspecific chest pain (1 source) Chest pain Episodic Other connective tissue disease (1 source) Pain in right leg Onset: 12-07-2020 Episodic Other connective tissue disease (1 source) Pain in left leg Onset: 12-07-2020 Episodic Other connective tissue disease (1 source) Pain in right arm Onset: 12-14-2020 Episodic Other connective tissue disease (1 source) Pain in left arm Onset: 12-14-2020 Episodic Other gastrointestinal disorders (20 sources) Intestinal malabsorption; Translations: [Intestinal malabsorption, unspecified] Onset: 08-11-2016 08-11-2016 Chronic Other gastrointestinal disorders (1 source) Intestinal malabsorption, unspecified; Translations: [Intestinal malabsorption, unspecified] Onset: 08-11-2016 Chronic Other gastrointestinal disorders (1 source) Constipation, unspecified; Translations: [CONSTIPATION UNSPECIFIED] Onset: 01-18-2021 Episodic Other gastrointestinal disorders (1 source) Diarrhea; Translations: [Diarrhea, unspecified] Episodic Other injuries and conditions due to external causes (1 source) Contusion; Translations: [Multiple contusions] Episodic Other nervous system disorders (1 source) Polyneuropathy; Translations: [Polyneuropathy, unspecified] Chronic Other nervous system disorders (2 sources) Other disturbances of skin sensation Onset: 12-07-2020 Episodic Other nutritional; endocrine; and metabolic disorders (20 sources) Morbid obesity; Translations: [Morbid (severe) obesity due to excess calories] Onset: 03-19-2018 03-19-2018 Chronic Other nutritional; endocrine; and metabolic disorders (1 source) Hypocalcemia; Translations: [Hypocalcemia] Chronic Other nutritional; endocrine; and metabolic disorders (1 source) Morbid (severe) obesity due to excess calories; Translations: [MORBID SEVERE OBES D/T EXCESS PARAG] Onset: 01-18-2021 Chronic Other nutritional; endocrine; and metabolic disorders (1 source) Body mass index 40+ - severely obese; Translations: [Morbid (severe) obesity due to excess calories] 01-23-2024 Chronic Other screening for suspected conditions (not mental disorders or infectious disease) (1 source) Encounter for other screening for malignant neoplasm of breast; Translations: [Encounter for other screening for malignant neoplasm of breast] Onset: 11-21-2023 Episodic Other upper respiratory infections (1 source) Chronic maxillary sinusitis; Translations: [Chronic maxillary sinusitis] Onset: 02-19-2023 Chronic Residual codes; unclassified (2 sources) Obstructive sleep apnea syndrome; Translations: [Obstructive sleep apnea (adult) (pediatric)] 02-22-2024 Chronic Residual codes; unclassified (1 source) General problem AND/OR complaint; Translations: [Concern about STD in female without diagnosis] Skin and subcutaneous tissue infections (20 sources) Abscess of abdominal wall; Translations: [Cutaneous abscess of abdominal wall] 03-09-2017 Episodic Superficial injury; contusion (1 source) Insect bite of upper limb; Translations: [Insect bite (nonvenomous) of right upper arm, initial encounter] Episodic Syncope (1 source) Syncope and collapse; Translations: [Syncope and collapse] Episodic Unclassified (14 sources) History of bypass of stomach; Translations: [H/O gastric bypass] Onset: 08-11-2016 03-20-2018 Urinary tract infections (3 sources) Acute urinary tract infection; Translations: [Urinary tract infection, site not specified] Onset: 01-31-2024 07-24-2023 Episodic Viral infection (1 source) Viral disease; Translations: [Viral illness] Episodic Past or Other Problems Problem Classification Problem Date Documented Da te Episodic/Chronic Acute and chronic tonsillitis (1 source) Acute tonsillitis; Translations: [Acute tonsillitis, unspecified etiology] Episodic Deficiency and other anemia (20 sources) Iron deficiency anemia; Translations: [Iron deficiency anemia, unspecified] Onset: 06-20-2016 06-20-2016 Episodic Deficiency and other anemia (1 source) Iron deficiency anemia, unspecified; Translations: [Iron deficiency anemia, unspecified] Onset: 06-20-2016 Episodic Diseases of mouth; excluding dental (1 source) Parotitis; Translations: [Acute parotitis] Episodic Disorders of teeth and jaw (2 sources) Toothache; Translations: [Other specified disorders of teeth and supporting structures] Onset: 02-19-2023 Episodic Mycoses (1 source) Candidiasis of skin; Translations: [Skin yeast infection] Episodic Nutritional deficiencies (20 sources) Cobalamin deficiency; Translations: [Deficiency of other specified B group vitamins] Onset: 11-01-2018 11-01-2018 Episodic Other circulatory disease (2 sources) Elevated blood pressure; Translations: [Elevated blood-pressure reading, without diagnosis of hypertension] Onset: 07-21-2022 07-21-2022 Episodic Other gastrointestinal disorders (2 sources) H/O: GIT by-pass; Translations: [H/O gastric bypass] Onset: 08-11-2016 03-20-2018 Episodic Other gastrointestinal disorders (19 sources) History of bypass of stomach; Translations: [Bariatric surgery status] Onset: 08-11-2016 03-20-2018 Episodic Other infections; including parasitic (20 sources) Infestation by Sarcoptes scabiei thi hominis; Translations: [Scabies] Onset: 03-20-2018 03-20-2018 Episodic Other non-traumatic joint disorders (3 sources) Chronic pain of left upper limb; Translations: [Pain in left shoulder] Onset: 01-03-2022 01-03-2022 Episodic Other upper respiratory infections (4 sources) Acute pharyngitis; Translations: [Acute upper respiratory infection] Onset: 04-23-2023 Episodic Pulmonary heart disease (20 sources) Pulmonary embolism; Translations: [Other pulmonary embolism without acute cor pulmonale] Resolved: 06-18-2019 03-30-2017 Episodic Spondylosis; intervertebral disc disorders; other back problems (4 sources) Dorsalgia, unspecified; Translations: [Chronic low back pain] Onset: 01-03-2022 01-03-2022 Episodic Sprains and strains (2 sources) Strain of back muscle; Translations: [Sprain of unspecified ligament of right ankle, initial encounter] Onset: 04-14-2023 Episodic Results Test Name Value Interpretation Reference Range Facility CBC with Diffon 01-31-2024 Basophils (Bld) [#/Vol] 0.06 10*3/uL [facility] Basophils/100 WBC (Bld) 1 % 0 - 2 % [facility] Eosinophils (Bld) [#/Vol] 0.26 10*3/uL [facility] Eosinophils/100 WBC (Bld) 2 % 1 - 4 % [facility] Erythrocyte distribution width (RBC) [Ratio] 13.6 % 11.8 - 14.4 % [facility] Hematocrit (Bld) [Volume fraction] 40.2 % 36.3 - 47.1 % [facility] Hemoglobin (Bld) [Mass/Vol] 13.4 g/dL 11.9 - 15.1 g/dL [facility] Immature granulocytes (Bld) [#/Vol] 0.05 10*3/uL [facility] Immature granulocytes/100 WBC (Bld) 0 % 0 [facility] Interpretation and review of laboratory results Abnormal [facility] Lymphocytes/100 WBC (Bld) 27 % 24 - 43 % [facility] Lymphocytes/100 WBC (Bld) 3.15 % [facility] MCH (RBC) [Entitic mass] 28.9 pg 25.2 - 33.5 pg [facility] MCHC (RBC) [Mass/Vol] 33.3 g/dL 28.4 - 34.8 g/dL [facility] MCV (RBC) [Entitic vol] 86.6 fL 82.6 - 102.9 fL [facility] Monocytes/100 WBC (Bld) 6 % 3 - 12 % [facility] Monocytes/100 WBC (Bld) 0.71 % [facility] Neutrophils/100 WBC (Bld) 64 % 36 - 65 % [facility] Nucleated RBC/100 WBC (Bld) [Ratio] 0.0 % 0.0 per 100 WBC [facility] Platelet mean volume (Bld) [Entitic vol] 11.2 fL 8.1 - 13.5 fL [facility] Platelets (Bld) [#/Vol] 440 10*3/uL [facility] RBC (Bld) [#/Vol] 4.64 10*6/uL 3.95 - 5.1 1 m/uL [facility] Segmented neutrophils/100 WBC (Bld) 7.57 % [facility] WBC other (Bld) [#/Vol] 11.8 High [facility] Abs. Basophil 0.06 k/uL Normal 0.00-0.20 [facility] Comment on above: Performed By: #### T ARTIE, CDP, CP, LIP ####[facility] [place] [address] lab Director: Marcelino Lopez MD Abs.Imm.Granulocyte 0.05 k/uL Normal 0.00-0.30 [facility] Comment on above: Performed By: #### T ARTIE, CDP, CP, LIP ####[facility] [place] [address] Lab Director: Marcelino Lopez MD Abs.Neutrophil (Seg) 7.57 k/uL Normal 1.50-8.10 [facility] Comment on above: Performed By: #### T ROPI, CDP, CP, LIP ####[address] [place] [id number] Lab Director: Marcelino Lopez MD Basophils/100 WBC (Bld) 1 % Normal 0-2 [facility] Comment on above: Performed By: #### T ROPI, CDP, CP, LIP ####[address] [place] [address] Lab Director: Marcelino Lopez MD Eosinophils (Bld) [#/Vol] 0.26 10*3/uL Normal 0.00-0.44 [facility] Comment on above: Performed By: #### T ROPI, CDP, CP, LIP ####[address] [place], [place] [address])[phone] Director: Marcelino Lopez MD Eosinophils/100 WBC (Bld) 2 % Normal 1-4 [facility] Comment on above: Performed By: #### T ROPI, CDP, CP, LIP ####[address] [place], [place] [address])[phone] Director: Marcelino Lopez MD Erythrocyte distribution width (RBC) [Ratio] 13.6 % Normal 11.8-14.4 [facility] Comment on above: Performed By: #### T ROPI, CDP, CP, LIP ####[address] [place] [id number] Lab Director: Marcelino Lopez MD Hematocrit (Bld) [Volume fraction] 40.2 % Normal 36.3-47.1 [facility] Comment on above: Performed By: #### T ROPI, CDP, CP, LIP ####[address] , [place] [address] Lab Director: Marcelino Lopez MD Hemoglobin (Bld) [Mass/Vol] 13.4 g/dL Normal 11.9-15.1 [facility] Comment on above: Performed By: #### T ROPI, CDP, CP, LIP ####[address] [place], [place] [id number] Lab Director: Marcelino Lopez MD Immature granulocytes/100 WBC (Bld) 0 % Normal 0 [facility] Comment on above: Performed By: #### T ROPI, CDP, CP, LIP ####[address] [place], [place] [id number] Lab Director: Marcelino Lopez MD Lymphocytes (Bld) [#/Vol] 3.15 10*3/uL Normal 1.10-3.70 [facility] Comment on above: Performed By: #### T ROPI, CDP, CP, LIP ####[address] [place] [id number] Lab Director: Marcelino Lopez MD Lymphocytes/100 WBC (Bld) 27 % Normal 24-43 [facility] Comment on above: Performed By: #### T ROPI, CDP, CP, LIP ####[address] , [place] [id number] Lab Director: Marcelino Lopez MD MCH (RBC) [Entitic mass] 28.9 pg Normal 25.2-33.5 [facility] Comment on above: Performed By: #### T ROPI, CDP, CP, LIP ####[address] , [place] [id number] Lab Director: Marcelino Lopez MD MCHC (RBC) [Mass/Vol] 33.3 g/dL Normal 28.4-34.8 [facility] Comment on above: Performed By: #### T ROPI, CDP, CP, LIP ####[address] [place] [id number] Lab Director: Marcelino Lopez MD MCV (RBC) [Entitic vol] 86.6 fL Normal 82.6-102.9 [facility] Comment on above: Performed By: #### T ROPI, CDP, CP, LIP ####[address] , [facility]83 Lab Director: Marcelino Lopez MD Monocytes (Bld) [#/Vol] 0.71 10*3/uL Normal 0.10-1.20 [facility] Comment on above: Performed By: #### T ROPI, CDP, CP, LIP ####[address] , [facility]83 Lab Director: Marcelino Lopez MD Monocytes/100 WBC (Bld) 6 % Normal 3-12 [facility] Comment on above: Performed By: #### T ROPI, CDP, CP, LIP ####[address] , [facility]83 Lab Director: Marcelino Lopez MD Neutrophil (Seg) 64 % Normal 36-65 [facility] Comment on above: Performed By: #### T ROPI, CDP, CP, LIP ####[address] , [facility]83 Lab Director: Marcelino Lopez MD NRBC Automated 0.0 per 100 WBC Normal 0.0 [facility] Comment on above: Performed By: #### T ROPI, CDP, CP, LIP ####[address] , [place] [id number] Lab Director: Marcelino Lopez MD Platelet mean volume (Bld) [Entitic vol] 11.2 fL Normal 8.1-13.5 [facility] Comment on above: Performed By: #### T ROPI, CDP, CP, LIP ####[address] , [facility]83 Lab Director: Marcelino Lopez MD Platelets (Bld) [#/Vol] 440 10*3/uL Normal 138-453 [facility] Comment on above: Performed By: #### T MANISH ALAV, CP, LIP ####[facility] [place] , [place] [id number] Lab Director: Marcelino Lopez MD RBC (Bld) [#/Vol] 4.64 10*6/uL Normal 3.95-5.11 [facility] Comment on above: Performed By: #### T MANISH ALVA, CP, LIP ####[facility] [place] , [place] [address] Lab Director: Marcelino Lopez MD WBC (Bld) [#/Vol] 11.8 10*3/uL High 3.5-11.3 [facility] Comment on above: Performed By: #### T MANISH ALVA, CP, LIP ####[facility] [place] , [place] [id number] Lab Director: Marcelino Lopez MD [facility] 01-31-2024 Albumin [Mass/Vol] 4.3 g/dL 3.5 - 5.2 g/dL [facility] Albumin/Globulin [Mass ratio] 1.2 {ratio} 1.0 - 2.5 [facility] ALP [Catalytic activity/Vol] 100 U/L 35 - 104 U/L [facility] ALT [Catalytic activity/Vol] 9 U/L Low 10 - 35 U/L [facility] Anion gap [Moles/Vol] 13 mmol/L 9 - 16 mmol/L [facility] AST [Catalytic activity/Vol] 23 U/L 10 - 35 U/L [facility] Bilirubin [Mass/Vol] 0.3 mg/dL 0.00 - 1.20 mg/dL [facility] Calcium [Mass/Vol] 9.3 mg/dL 8.6 - 10. 4 mg/dL [facility] Chloride [Moles/Vol] 98 mmol/L 98 - 10 7 mmol/L [facility] CO2 [Moles/Vol] 27 mmol/L 20 - 31 mmol/L [facility] Creatinine [Mass/Vol] 1.2 mg/dL High 0.50 - 0.90 mg/dL [facility] Shayne Arrington Rate 56 Low - [facility] Comment on above: These results are not intended for use in patients <18 years of age. eGFR results are calculated without a race factor using the 2020 CKD-EPI equation. Careful clinical correlation is recommended, particularly when comparing to results calculated using previous equations. The CKD-EPI equation is less accurate in patients with extremes of muscle mass, extra-renal metabolism of creatine, excessive creatine ingestion, or following therapy that affects renal tubular secretion. Glucose [Mass/Vol] 93 mg/dL 74 - 99 mg/dL [facility] Potassium [Moles/Vol] 4.0 mmol/L 3.7 - 5.3 mmol/L [facility] Protein [Mass/Vol] 8.0 g/dL 6.6 - 8.7 g/dL [facility] Sodium [Moles/Vol] 138 mmol/L 136 - 145 mmol/L [facility] Urea nitrogen [Mass/Vol] 13 mg/dL 6 - 20 mg/dL [facility] Urea nitrogen/Creatinine [Mass ratio] 11 mg/mg 9 - [address] [facility] CT ABDOMEN PELVIS W IV CONTR Mazin 01-31-2024 CT ABDOMEN PELVIS W IV CONTRAST EXAMINATION: CT OF THE ABDOMEN AND PELVIS WITH CONTRAST 01/31/2024 10:49 pm TECHNIQUE: CT of the abdomen and pelvis was performed with the administration of intravenous contrast. Multiplanar reformatted images are provided for review. Automated exposure control, iterative reconstruction, and/or weight based adjustment of the mA/kV was utilized to reduce the radiation dose to as low as reasonably achievable. COMPARISON: 11/13/2019 HISTORY: ORDERING SYSTEM PROVIDED HISTORY: RUQ pain TECHNOLOGIST PROVIDED HISTORY: RUQ pain Decision Support Exception - unselect if not a suspected or confirmed emergency medical condition->Emergency Medical Condition (MA) FINDINGS: Lower chest: Heart size is normal. Lungs are clear. Liver: Liver is normal density. No enhancing masses. Normal enhancement of the intrahepatic vasculature. Liver is elongated at 21.6 cm. Spleen: Normal size. No enhancing masses Pancreas: No enhancing masses. No ductal dilation. No adjacent fatty stranding. Gallbladder resected. Clips in the gallbladder fossa Bile ducts: No biliary ductal dilation Adrenals: The adrenal glands are unremarkable Kidneys: Kidneys are normal in appearance. No hydronephrosis. No enhancing masses. Norenal stones. GI: Previous gastric bypass. Mild minimal dilation of the 8 parent limb. This is unchanged. Does not have the appearance of an obstruction. However, the colon is decompressed. Small bowel appearance is similar to the previous study.. No colonic wall thickening. No large mass. The stomach is postsurgical in appearance. Laxity of the anterior abdominal wall without change. This is not a true hernia. Mesentery: No enlarged lymphadenopathy. No free fluid. No free gas. Aorta: Aorta is of normal size. Negative for dissection. IVC is unremarkable.Celiac axis and SMA are patent. Portal vein is patent. PELVIS GI: No small bowel dilation. No colonic wall thickening. No enlarged lymphadenopathy. no free fluid in the pelvis. : The bladder is unremarkable in appearance. No large mass. Uterus is unremarkable. Phleboliths in the pelvis. Osseous: Spondylosis. Old rib fractures. IMPRESSION: No acute process Interpreted by: Monique Bains MD Signed by: Monique Bains MD 01/31/24 Final result Normal [facility] CT Abdomen and Pelvis W cont rast Baljit 01-31-2024 No acute process [facility] RIS CONSOLIDATED EXAMINATION: CT OF THE ABDOMEN AND PELVIS WITH CONTRAST 01/31/2024 10:49 pm TECHNIQUE: CT of the abdomen and pelvis was performed with the administration of intravenous contrast. Multiplanar reformatted images are provided for review. Automated exposure control, iterative reconstruction, and/or weight based adjustment of the mA/kV was utilized to reduce the radiation dose to as low as reasonably achievable. COMPARISON: 11/13/2019 HISTORY: ORDERING SYSTEM PROVIDED HISTORY: [facility] pain TECHNOLOGIST PROVIDED HISTORY: [facility] pain Decision Support Exception - unselect if not a suspected or confirmed emergency medical condition->Emergency Medical Condition (MA) FINDINGS: Lower chest: Heart size is normal. Lungs are clear. Liver: Liver is normal density. No enhancing masses. Normal enhancement of the intrahepatic vasculature. Liver is elongated at 21.6 cm. Spleen: Normal size. No enhancing masses Pancreas: No enhancing masses. No ductal dilation. No adjacent fatty stranding. Gallbladder resected. Clips in the gallbladder fossa Bile ducts: No biliary ductal dilation Adrenals: The adrenal glands are unremarkable Kidneys: Kidneys are normal in appearance. No hydronephrosis. No enhancing masses. Norenal stones. GI: Previous gastric bypass. Mild minimal dilation of the 8 parent limb. This is unchanged. Does not have the appearance of an obstruction. However, the colon is decompressed. Small bowel appearance is similar to the previous study.. No colonic wall thickening. No large mass. The stomach is postsurgical in appearance. Laxity of the anterior abdominal wall without change. This is not a true hernia. Mesentery: No enlarged lymphadenopathy. No free fluid. No free gas. Aorta: Aorta is of normal size. Negative for dissection. IVC is unremarkable.Celiac axis and SMA are patent. Portal vein is patent. PELVIS GI: No small bowel dilation. No colonic wall thickening. No enlarged lymphadenopathy. no free fluid in the pelvis. : The bladder is unremarkable in appearance. No large mass. Uterus is unremarkable. Phleboliths in the pelvis. Osseous: Spondylosis. Old rib fractures. [facility] RIS CONSOLIDATED Monique Bains MD - 01/31/2024 EXAMINATION: CT OF THE ABDOMEN AND PELVIS WITH CONTRAST 01/31/2024 10:49 pm TECHNIQUE: CT of the abdomen and pelvis was performed with the administration of intravenous contrast. Multiplanar reformatted images are provided for review. Automated exposure control, iterative reconstruction, and/or weight based adjustment of the mA/kV was utilized to reduce the radiation dose to as low as reasonably achievable. COMPARISON: 11/13/2019 HISTORY: ORDERING SYSTEM PROVIDED HISTORY: Q pain TECHNOLOGIST PROVIDED HISTORY: RUQ pain Decision Support Exception - unselect if not a suspected or confirmed emergency medical condition->Emergency Medical Condition (MA) FINDINGS: Lower chest: Heart size is normal. Lungs are clear. Liver: Liver is normal density. No enhancing masses. Normal enhancement of the intrahepatic vasculature. Liver is elongated at 21.6 cm. Spleen: Normal size. No enhancing masses Pancreas: No enhancing masses. No ductal dilation. No adjacent fatty stranding. Gallbladder resected. Clips in the gallbladder fossa Bile ducts: No biliary ductal dilation Adrenals: The adrenal glands are unremarkable Kidneys: Kidneys are normal in appearance. No hydronephrosis. No enhancing masses. Norenal stones. GI: Previous gastric bypass. Mild minimal dilation of the 8 parent limb. This is unchanged. Does not have the appearance of an obstruction. However, the colon is decompressed. Small bowel appearance is similar to the previous study.. No colonic wall thickening. No large mass. The stomach is postsurgical in appearance. Laxity of the anterior abdominal wall without change. This is not a true hernia. Mesentery: No enlarged lymphadenopathy. No free fluid. No free gas. Aorta: Aorta is of normal size. Negative for dissection. IVC is unremarkable.Celiac axis and SMA are patent. Portal vein is patent. PELVIS GI: No small bowel dilation. No colonic wall thickening. No enlarged lymphadenopathy. no free fluid in the pelvis. : The bladder is unremarkable in appearance. No large mass. Uterus is unremarkable. Phleboliths in the pelvis. Osseous: Spondylosis. Old rib fractures. IMPRESSION: No acute process [facility] Radiology Study observation (narrative) [facility] CT Abdomen and Pelvis W cont rast IVOrdered By: Monique Bains on 01-31-2024 [facility] Work Phone: Comp Metabolic Profon 2023 Albumin [Mass/Vol] 4.3 g/dL Normal 3.5-5.2 [facility] Comment on above: Performed By: #### T ROPI, CDP, CP, LIP ####[address] [place] [address] lab Director: Marcelino Lopez MD Albumin/Glob Ratio 1.2 Normal 1.0-2.5 [facility] Comment on above: Performed By: #### T ROPGladys, CDP, CP, LIP ####[facility] [place] [address] lab Director: Marcelino Lopez MD Alkaline Phos 100 U/L Normal 35-104 [facility] Comment on above: Performed By: #### T ROPI, CDP, CP, LIP ####[facility] [place] [address] lab Director: Marcelino Lopez MD ALT [Catalytic activity/Vol] 9 U/L Low - [facility] Comment on above: Performed By: #### T ROPI, CDP, CP, LIP ####[address] , [place] [id number] lab Director: Marcelino Lopez MD Anion gap [Moles/Vol] 13 mmol/L Normal -16 [facility] Comment on above: Performed By: #### T ROPI, CDP, CP, LIP ####[address] , [place] [address] lab Director: Marcelino Lopez MD AST [Catalytic activity/Vol] 23 U/L Normal [facility] Comment on above: Performed By: #### T ROPI, CDP, CP, LIP ####[address] , [place] [id number] lab Director: Marcelino Lopez MD Bilirubin [Mass/Vol] 0.3 mg/dL Normal 0.00-1.20 [facility] Comment on above: Performed By: #### T ROPI, CDP, CP, LIP ####[address] , [place] [address] lab Director: Marcelino Lopez MD BUN/CRE Ratio 11 Normal - [facility] Comment on above: Performed By: #### T ROPI, CDP, CP, LIP ####[address] , [place] [id number] lab Director: Marcelino Lopez MD Calcium [Mass/Vol] 9.3 mg/dL Normal 8.6-10.4 [facility] Comment on above: Performed By: #### T ROPI, CDP, CP, LIP ####[address] , [place] [address] lab Director: Marcelino Lopez MD Chloride [Moles/Vol] 98 mmol/L Normal 98-107 [facility] Comment on above: Performed By: #### T ROPI, CDP, CP, LIP ####[facility] [place] [address] Lab Director: Marcelino Lopez MD CO2 [Moles/Vol] 27 mmol/L Normal 20-31 [facility] Comment on above: Performed By: #### T ROPI, CDP, CP, LIP ####[facility] [place] , [place] [address] lab Director: Marcelino Lopez MD Creatinine [Mass/Vol] 1.2 mg/dL High 0.50-0.90 [facility] Comment on above: Performed By: #### T ROPI, CDP, CP, LIP ####[address] [place] [address] Lab Director: Marcelino Lopez MD GFR/1.73 sq M.predicted among non-blacks MDRD (S/P/Bld) [Vol rate/Area] 56 mL/min/{1.73_m2} Low >60 [facility] Comment on above: Result Comment: These results are not intended for use in patients <18 years of age. eGFR results are calculated without a race factor using the 2020 CKD-EPI equation. Careful clinical correlation is recommended, particularly when comparing to results calculated using previous equations. The CKD-EPI equation is less accurate in patients with extremes of muscle mass, extra-renal metabolism of creatine, excessive creatine ingestion, or following therapy that affects renal tubular secretion. Performed By: #### T ROPI, CDP, CP, LIP ####[address] [place] [address] Lab Director: Marcelino Lopez MD Glucose [Mass/Vol] 93 mg/dL Normal 74-99 [facility] Comment on above: Performed By: #### T ROPI, CDP, CP, LIP ####[facility] [place] , [place] [address] lab Director: Marcelino Lopez MD Potassium [Moles/Vol] 4.0 mmol/L Normal 3.7-5.3 [facility] Comment on above: Performed By: #### T ARTIE, CDP, CP, LIP ####[facility] [place] , [place] [address] Lab Director: Marcelino Lopez MD Protein [Mass/Vol] 8.0 g/dL Normal 6.6-8.7 [facility] Comment on above: Performed By: #### T ARTIE, CDP, CP, LIP ####[facility] [place] , [place] [address] Lab Director: Marcelino Lopez MD Sodium [Moles/Vol] 138 mmol/L Normal 136-145 [facility] Comment on above: Performed By: #### T ARTIE, CDP, CP, LIP ####[address] , [place] [address] Lab Director: Marcelino Lopez MD Urea nitrogen [Mass/Vol] 13 mg/dL Normal 6-20 [facility] Comment on above: Performed By: #### T ARTIE, CDP, CP, LIP ####[address] , [place] [id number] Lab Director: Marcelino Lopez MD Lipaseon 01-31-2024 Lipase [Catalytic activity/Vol] 12 U/L Low 13 - 60 U/L [facility] Lipase [Catalytic activity/Vol] 12 U/L Low 13-60 [facility] Comment on above: Performed By: #### T ARTIE, CDP, CP, LIP ####[address] , [place] [address] Lab Director: Marcelino Lopez MD Microscopic Urinalysison Bacteria LM Ql (Urine sed) 3+ Abnormal None [facility] Casts LM.LPF (Urine sed) [#/Area] 2 TO 5 HYALINE /LPF [facility] Epithelial cells LM.HPF (Urine sed) [#/Area] 10 TO 20 [facility] Interpretation and review of laboratory results Abnormal [facility] RBC LM.HPF (Urine sed) [#/Area] 2 TO 5 [facility] WBC LM.HPF (Urine sed) [#/Area] 2 TO 5 [facility] No Panel Informationon 01-30 Interpretation and review of laboratory results Abnormal [facility] Troponinon 01-31-2024 Troponin I.cardiac High sensitivity method [Mass/Vol] ng/L 0 - 14 ng/L [facility] Comment on above: High Sensitivity Tro ponin values cannot be compared with other Troponin methodologies. Troponin, High Sens <6 Normal 0-14 [facility] Comment on above: Result Comment: High Sensitivity Troponin values cannot be compared with other Troponin methodologies. Performed By: #### T ROPI, CDP, CP, LIP ####[facility] [place] [address] Lab Director: Marcelino Lopez MD UA w/Reflex Cultureon 2023 Bilirubin, SemiQt,Ur Negative Normal NEG [facility] Comment on above: Performed By: #### U SARAHO UAX #### [facility] [address] [place] [address] Explosive Ordnance Specialist: Marcelino Lopez MD Blood, Urine TRACE Abnormal NEG [facility] Comment on above: Performed By: #### U SARAHO, UAX #### [facility] [address] [place] [address] Explosive Ordnance Specialist: Marcelino Lopez MD Clarity (U) Clear Normal CLEAR [facility] Comment on above: Performed By: #### U SARAHO UAX #### [facility] [address] [place] [address] Explosive Ordnance Specialist: Marcelino Lopez MD Color (U) Yellow Normal YEL [facility] Comment on above: Performed By: #### U SARAHO, UAX #### [facility] [address] [place], [place] [address] Explosive Ordnance Specialist: Marcelino Lopez MD Glucose Ql (U) Negative Normal NEG [facility] Comment on above: Performed By: #### U MICAO, UAX #### [facility] [address] [place] [address] [address] [place], [place] 27[address] Explosive Ordnance Specialist: Marcelino Lopez MD Ketones Ql (U) Negative Normal NEG [facility] Comment on above: Performed By: #### U MICAO, UAX #### [facility] [address] [place] [address] [place] [place], [place] [address] Explosive Ordnance Specialist: Marcelino Lopez MD Leukocyte esterase Test strip Ql (U) Negative Normal NEG [facility] Comment on above: Performed By: #### U MICAO, UAX #### [address] [place], [place] [address] Explosive Ordnance Specialist: Marcelino Lopez MD Nitrite,Ur Positive Abnormal NEG [facility] Comment on above: Performed By: #### U MICAO, UAX #### [address] [place] [address] Explosive Ordnance Specialist: Marcelino Lopez MD PH,Ur 5.5 Normal 5.0-9.0 [facility] Comment on above: Performed By: #### U MICAO, UAX #### [facility] [address] [place] [address] [place] [place], [place] 365[address]383 Explosive Ordnance Specialist: Marcelino Lopez MD Protein Ql (U) Negative Normal NEG [facility] Comment on above: Performed By: #### U MICAO, UAX #### [facility] [address] [place] [address] [place] [place], [place] [address]82[address] Explosive Ordnance Specialist: Marcelino Lopez MD Spec. [place],Ur >1.030 High 1.010-1.020 [facility] Comment on above: Performed By: #### U MICAO, UAX #### [facility] [address] [place] [address] Explosive Ordnance Specialist: Marcelino Lopez MD Urobilinogen,Ur Normal Normal 0.0-1.0 [facility] Comment on above: Performed By: #### U SARAHO, UAX #### [facility] [address] [place] [address] Explosive Ordnance Specialist: Marcelino Lopez MD Urinalysis with Reflex to Cu ltureon 01-31-2024 Bilirubin Ql (U) Negative NEGATIVE [facility] Clarity (U) Clear Clear [facility] Color (U) Yellow Yellow [facility] Glucose Test strip (U) [Mass/Vol] Negative NEGATIVE mg/dL [facility] Hemoglobin Auto test strip Ql (U) TRACE Abnormal NEGATIVE [facility] Interpretation and review of laboratory results Abnormal [facility] Ketones (U) [Mass/Vol] Negative NEGAT [place] mg/dL [facility] Leukocyte esterase Test strip Ql (U) Negative NEGATIVE [facility] Nitrite Ql (U) Positive Abnormal NEGATIVE [facility] pH (U) 5.5 [pH] 5.0 - 9.0 [facility] Protein (U) [Mass/Vol] Negative NEGAT [place] mg/dL [facility] Specific gravity (U) [Rel density] High 1.010 - 1.020 [facility] Urobilinogen Qn (U) Normal 0.0 - 1. 0 EU/dL [facility] Urinalysis,Microon 4 Bacteria 3+ Abnormal NONE [facility] Comment on above: Performed By: #### U FOREST UAX #### [facility] [address] [place] [address] Explosive Ordnance Specialist: Marcelino Lopez MD Casts 2 TO 5 Normal [facility] Comment on above: Result Comment: HYAL INE Performed By: #### U FOREST UAX #### [facility] [address] [place], [place] 08[address] Explosive Ordnance Specialist: Marcelino Lopez MD Epithelial cells LM Ql (Urine sed) 10 TO 20 Normal 0-25 [facility] Comment on above: Performed By: #### U MICAO, UAX #### [facility] [address] [place], [place] 364[address]83 Explosive Ordnance Specialist: Marcelino Lopez MD Urine RBC's 2 TO 5 Normal 0-2 [facility] Comment on above: Performed By: #### U MICAO, UAX #### [facility] [address] [place], [place] 745[address]83 Explosive Ordnance Specialist: Marcelino Lopez MD Urine WBC's 2 TO 5 Normal 0-5 [facility] Comment on above: Performed By: #### U MICAO, UAX #### [facility] [address] [place], [place] 3645[address] Explosive Ordnance Specialist: Marcelino Lopez MD [facility] CHRISTEL DIGITAL SCREEN CATHLEENLissett FAUSTINLisa 11-21-2023 [facility] CHRISTEL DIGITAL SCREEN BILATERAL EXAMINATION: SCREENING DIGITAL BILATERAL MAMMOGRAM WITH TOMOSYNTHESIS, 11/21/2023 TECHNIQUE: Screening mammography was performed with tomosynthesis including MLO and CC views of the bilateral breasts. Computer aided detection was used for the interpretation of this exam. COMPARISON: None. Baseline study. HISTORY: Screening. Positive family history of breast cancer; maternal. Prior right surgical biopsy in the past with benign histology. TC score 11.37 FINDINGS: Both breasts are composed of scattered fibroglandular density. No skin thickening, nipple contour changes, suspicious calcifications, suspicious masses, or areas of architectural distortion are noted. IMPRESSION: No evidence of malignancy. Advise annual screening mammography. BI-RADS 1 BIRADS: BIRADS - CATEGORY 1 Negative, no evidence of malignancy. Normal interval follow-up is recommended in 12 months. OVERALL ASSESSMENT - NEGATIVE A letter of notification will be sent to the patient regarding the results. [employer] recommends annual mammograms for women 40 years and older. Interpreted by: Erlin oSl MD Signed by: Erlin Sol MD 11/21/23 Final result Normal [facility] Terrie 07-28-2023 ALT [Catalytic activity/Vol] 5 U/L Normal 5-33 [facility] Comment on above: Performed By: #### B MP, ALT, AST #### [facility] [address] [place], [place] [address] Explosive Ordnance Specialist: Marcelino Lopez MD #### FERI #### [address] [id number] Explosive Ordnance Specialist: Higinio Bullock MD Mazin 07-28-2023 AST [Catalytic activity/Vol] 11 U/L Normal <32 [facility] Comment on above: Performed By: #### B MP, ALT, AST #### [facility] [address] [place], [place] [address] Explosive Ordnance Specialist: Marcelino Lopez MD #### FERI #### [address] [address] [employer] Specialist: Higinio Bullock MD Basic Metabolic Profon 07-27 Anion gap [Moles/Vol] 11 mmol/L Normal 9-17 [facility] Comment on above: Performed By: #### B MP, ALT, AST #### [facility] [address] [place], [place] 6[address]83 [employer] Specialist: Marcelino Lopez MD #### FERI #### [address] [address] [employer] Ordn[employer] Specialist: Higinio Bullock MD BUN/CRE Ratio 13 Normal 9-20 [facility] Comment on above: Performed By: #### B MP, ALT, AST #### [facility] [address] [place], [place] 7677283 [employer] Specialist: Marcelino Lopez MD #### FERI #### [address] [id number] [employer] Specialist: Higinio Bullock MD Calcium [Mass/Vol] 8.8 mg/dL Normal 8.6-10.4 [facility] Comment on above: Performed By: #### B MP, ALT, AST #### [facility] [address] [place] [place] [address] [employer] Specialist: Marcelino Lopez MD #### FERI #### [address] [id number] [employer] Ordn[employer] Specialist: Higinio Bullock MD Chloride [Moles/Vol] 102 mmol/L Normal 98-107 [facility] Comment on above: Performed By: #### B MP, ALT, AST #### [facility] [address] [place] [address] [place]. [place] [id number] [employer] Specialist: Marcelino Lopez MD #### FERI #### [address] [id number] [employer]dn[employer] Specialist: Higinio Bullock MD CO2 [Moles/Vol] 24 mmol/L Normal 20-31 [facility] Comment on above: Performed By: #### B MP, ALT, AST #### [address] [place] [id number] [employer] Specialist: Marcelino Lopez MD #### FERI #### [address] [address] [employer] Ordn[employer] Specialist: Higinio Bullock MD Creatinine [Mass/Vol] 0.7 mg/dL Normal 0.5-0.9 [facility] Comment on above: Performed By: #### B MP, ALT, AST #### [address] [place] [address] [employer] Specialist: Marcelino Lopez MD #### FERI #### [address] [address] Expl[employer] Ordn[employer] Specialist: Higinio Bullock MD GFR/1.73 sq M.predicted among non-blacks MDRD (S/P/Bld) [Vol rate/Area] mL/min/{1.73_m2} Normal >60 [facility] Comment on above: Result Comment: These results are not intended for use in patients <18 years of age. eGFR results are calculated without a race factor using the 2020 CKD-EPI equation. Careful clinical correlation is recommended, particularly when comparing to results calculated using previous equations. The CKD-EPI equation is less accurate in patients with extremes of muscle mass, extra-renal metabolism of creatine, excessive creatine ingestion, or following therapy that affects renal tubular secretion. Performed By: #### B MP, ALT, AST #### [address] [place] [id number] ( [employer] Specialist: Marcelino Lopez MD #### FERI #### [address] [phone] [employer]dn[employer] Specialist: Higinio Bullock MD Glucose [Mass/Vol] 95 mg/dL Normal 70-99 [facility] Comment on above: Performed By: #### B MP, ALT, AST #### [address] [place] [id number] [employer] Specialist: Marcelino Lopez MD #### FERI #### [address] [phone] [employer]dn[employer] Specialist: Higinio Bullock MD Potassium [Moles/Vol] 3.8 mmol/L Normal 3.7-5.3 [facility] Comment on above: Performed By: #### B MP, ALT, AST #### [address] [place] [id number] [employer] Specialist: Marcelino Lopez MD #### FERI #### [address] [address] [employer] Ordn[employer] Specialist: Higinio Bullock MD Sodium [Moles/Vol] 137 mmol/L Normal 135-144 [facility] Comment on above: Performed By: #### B MP, ALT, AST #### [facility] [address] [place] [address] [employer] Specialist: Marcelino Lopez MD #### FERI #### [place] [place], [place] [id number] [employer] Ordn[employer] Specialist: Higinio Bullock MD Urea nitrogen [Mass/Vol] 9 mg/dL Normal 6-20 [facility] Comment on above: Performed By: #### B MP, ALT, AST #### [facility] [address] [place] [place] [address] [employer] Specialist: Marcelino Lopez MD #### FERI #### [place] [address] [place] [address] [employer]dn[employer] Specialist: Higinio Bullock MD CBC with Diffon 07-28-2023 Abs. Basophil 0.08 k/uL Normal 0.00-0.20 [facility] Comment on above: Performed By: #### C DP #### [address] [place] [id number] [employer] Ordn[employer] Specialist: Marcelino Lopez MD Abs.Imm.Granulocyte 0.04 k/uL Normal 0.00-0.30 [facility] Comment on above: Performed By: #### C DP #### [address] [place] [address] [employer]dn[employer] Specialist: Marcelino oLpez MD Abs.Neutrophil (Seg) 4.48 k/uL Normal 1.50-8.10 [facility] Comment on above: Performed By: #### C DP #### [facility] [address] [place] [id number] [employer] Specialist: Marcelino Lopez MD Basophils/100 WBC (Bld) 1 % Normal 0-2 [facility] Comment on above: Performed By: #### C DP #### [facility] [address] [place] [place] [address] [employer]dn[employer] Specialist: Marcelino Lopez MD Eosinophils (Bld) [#/Vol] 0.45 10*3/uL High 0.00-0.44 [facility] Comment on above: Performed By: #### C DP #### [facility] [address] [place] [address] Dr. [place], [place] 1573683 [employer] Specialist: Marcelino Lopez MD Eosinophils/100 WBC (Bld) 5 % High 1-4 [facility] Comment on above: Performed By: #### C DP #### [facility] [address] [place] [address] Dr. [place], [place] [address] Explosive Ordn[employer] Specialist: Marcelino Lopez MD Erythrocyte distribution width (RBC) [Ratio] 15.2 % High 11.8-14.4 [facility] Comment on above: Performed By: #### C DP #### [address] [place], [facility]83 [employer]dn[employer] Specialist: Marcelino Lopez MD Hematocrit (Bld) [Volume fraction] 35.2 % Low 36.3-47.1 [facility] Comment on above: Performed By: #### C DP #### [address] [place], [place] 7778083 [employer]dn[employer] Specialist: Marcelino Lopez MD Hemoglobin (Bld) [Mass/Vol] 10.8 g/dL Low 11.9-15.1 [facility] Comment on above: Performed By: #### C DP #### [address] [place], [facility]83 [employer] Ordn[employer] Specialist: Marcelino Lopez MD Immature granulocytes/100 WBC (Bld) 1 % High 0 [facility] Comment on above: Performed By: #### C DP #### [address] [place], [place] 4697583 [employer] Ordn[employer] Specialist: Marcelino Lopez MD Lymphocytes (Bld) [#/Vol] 3.04 10*3/uL Normal 1.10-3.70 [facility] Comment on above: Performed By: #### C DP #### [facility] [address] [place], [place] [phone] [employer] Specialist: Marcelino Lopez MD Lymphocytes/100 WBC (Bld) 35 % Normal 24-43 [facility] Comment on above: Performed By: #### C DP #### [facility] [address] [place], [facility]03 ( [employer] Specialist: Marcelino Lopez MD MCH (RBC) [Entitic mass] 24.3 pg Low 25.2-33.5 [facility] Comment on above: Performed By: #### C DP #### [address] [place], [facility]03 ( [employer] Specialist: Marcelino Lopez MD MCHC (RBC) [Mass/Vol] 30.7 g/dL Normal 28.4-34.8 [facility] Comment on above: Performed By: #### C DP #### [address] [place], [facility]08 ( [employer] Specialist: Marcelino Lopez MD MCV (RBC) [Entitic vol] 79.3 fL Low 82.6-102.9 [facility] Comment on above: Performed By: #### C DP #### [address] [place], [facility]97 ( [employer] Specialist: Marcelino Lopez MD Monocytes (Bld) [#/Vol] 0.63 10*3/uL Normal 0.10-1.20 [facility] Comment on above: Performed By: #### C DP #### [facility] [address] [place] [address] Dr. [place], [facility]83 Expl[employer] Ordn[employer] Specialist: Marcelino Lopez MD Monocytes/100 WBC (Bld) 7 % Normal 3-12 [facility] Comment on above: Performed By: #### C DP #### [facility] [address] [place], [facility]71 [employer] Ordn[employer] Specialist: Marcelino Lopez MD Neutrophil (Seg) 51 % Normal 36-65 [facility] Comment on above: Performed By: #### C DP #### [facility] [address] [place], [place] 9571883 [employer]dn[employer] Specialist: Marcelino Lopez MD NRBC Automated 0.0 per 100 WBC Normal 0.0 [facility] Comment on above: Performed By: #### C DP #### [facility] [address] [place], [place] 6339883 [employer] Specialist: Marcelino Lopez MD Platelet mean volume (Bld) [Entitic vol] 11.5 fL Normal 8.1-13.5 [facility] Comment on above: Performed By: #### C DP #### [facility] [address] [place], [place] 2261883 [employer]dn[employer] Specialist: Marcelino Lopez MD Platelets (Bld) [#/Vol] 375 10*3/uL Normal 138-453 [facility] Comment on above: Performed By: #### C DP #### [facility] [address] [place], [place] 6555283 [employer] Specialist: Marcelino Lopze MD RBC (Bld) [#/Vol] 4.44 10*6/uL Normal 3.95-5.11 [facility] Comment on above: Performed By: #### C DP #### [facility] [address] [place], [place] 0511483 [employer] Specialist: Marcelino Lopez MD WBC (Bld) [#/Vol] 8.7 10*3/uL Normal 3.5-11.3 [facility] Comment on above: Performed By: #### C DP #### [facility] [address] [place], [place] 7584483 [employer]dn[employer] Specialist: Marcelino Lopez MD Ferritinon 07-28-2023 Ferritin [Mass/Vol] 11 ng/mL Low 13-150 [facility] Comment on above: Result Comment: FERRITIN Reference Ranges: Adult Males 20 - 60 years: 30 - 400 ng/mL Adult females 17 - 60 years: 13 - 150 ng/mL Adults greater than 60 years: no established reference range Pediatrics: no established reference range Performed By: #### B MP, ALT, AST #### [facility] [address] [place] [address] [employer]dn[employer] Specialist: Marcelino Lopez MD #### MAR #### [facility] [address] [place] [address] [employer] Ordn[employer] Specialist: Higinio Bullock MD Lipid Profileon 07-28-2023 Cholesterol [Mass/Vol] 169 mg/dL Normal 0-199 [facility] Comment on above: Result Comment: Cholesterol Guidelines: <200 Desirable 200-240 Borderline >240 Undesirable Performed By: #### L IPR ####[address] [place] [address] Lab Director: Higinio Bullock MD Cholesterol in HDL [Mass/Vol] 46 mg/dL Normal >40 [facility] Comment on above: Result Comment: HDL Guidelines: <40 Undesirable 40-59 Borderline >59 Desirable Performed By: #### L IPR ####[facility] [place] [address] Lab Director: Higinio Bullock MD Cholesterol in LDL [Mass/Vol] 90 mg/dL Normal 0-100 [facility] Comment on above: Result Comment: LDL Guidelines: <100 Desirable 100-129 Near to/above Desirable 130-159 Borderline >159 Undesirable Direct (measured) LDL and calculated LDL are not interchangeable tests. Performed By: #### L IPR ####[facility] [address] [place] [address] Lab Director: Higinio Bullock MD Cholesterol in VLDL [Mass/Vol] 33 mg/dL Normal [facility] Comment on above: Performed By: #### L IPR ####[facility] [address] [place] [address] Lab Director: Higinio Bullock MD Cholesterol.total/Chol esterol in HDL [Mass ratio] 4.0 {ratio} Normal [facility] Comment on above: Performed By: #### L IPR ####[address] [place] [address] Lab Director: Higinio Bullock MD Triglyceride [Mass/Vol] 166 mg/dL High <150 [facility] Comment on above: Result Comment: Triglyceride Guidelines: <150 Desirable 150-199 Borderline 200-499 High >499 Very high Based on AHA Guidelines for fasting triglyceride, February 2012. Performed By: #### L IPR ####[address] [address] Lab Director: Higinio Bullock MD Vitamin B12on 6 Cobalamin (Vitamin B12) [Mass/Vol] 263 pg/mL Normal 232-1245 [facility] Comment on above: Performed By: #### B MP, ALT, AST #### [facility] [address] [place] [address] [employer]dn[employer] Specialist: Marcelino Lopez MD #### FERI #### [address] [address] Explosive Ordnance Specialist: Higinio Bullock MD Cult,Urineon 07-26-2023 Cult,Urine Specimen Description .CLEAN CATCH URINE Culture ESCHERICHIA COLI >100,000 CFU/ML Report Status FINAL 07/26/2023 SUSCEPTIBILITY Organism ESCHERICHIA COLI Method LI Ampicillin >=32 RESISTANT Cefazolin >=64 RESISTANT Cefazolin sensitivity results can be used to predict the effectiveness of oral cephalosporins (eg. Cephalexin) in uncomplicated Urinary Tract Infections due to E. coli, K. pneumoniae, and P. mirabilis Ceftriaxone 32 RESISTANT ESBL NEGATIVE Gentamicin <=1 SUSCEPTIBLE Levofloxacin <=0.12 SUSCEPTIBLE Nitrofurantoin <=16 SUSCEPTIBLE Piperacillin/Tazobac pitts <=4 SUSCEPTIBLE Tobramycin <=1 SUSCEPTIBLE Trimethoprim/Sulfa <=20 SUSCEPTIBLE Susceptible [facility] Comment on above: Performed By: #### U RC #### [facility] [address] [place], [place] [id number] [employer]dn[employer] Specialist: Higinio Bullock MD [facility] [address] [place] [address] Dr. [place], [place] [address] Explosive Ordn[employer] Specialist: Marcelino Lopez MD CBC with Diffon 04-23-2023 Abs. Basophil 0.05 k/uL Normal 0.00-0.20 [facility] Comment on above: Performed By: #### C P, CDP, MG ####[address] , [place] [address])[phone] Director: Marcelino Lopez MD Abs.Imm.Granulocyte 0.07 k/uL Normal 0.00-0.30 [facility] Comment on above: Performed By: #### C P, CDP, MG ####[address] , [place] [address])[phone] Director: Marcelino Lopez MD Abs.Neutrophil (Seg) 13.34 k/uL High 1.50-8.10 [facility] Comment on above: Performed By: #### C P, CDP, MG ####[address] , [place] [address])[phone] Director: Marcelino Lopez MD Basophils/100 WBC (Bld) 0 % Normal 0-2 [facility] Comment on above: Performed By: #### C P, CDP, MG ####[address] , [place] [address])[phone] Director: Marcelino Lopez MD Eosinophils (Bld) [#/Vol] 0.19 10*3/uL Normal 0.00-0.44 [facility] Comment on above: Performed By: #### C P, CDP, MG ####[address] , [facility]34([facility])[phone] Director: Marcelino Lopez MD Eosinophils/100 WBC (Bld) 1 % Normal 1-4 [facility] Comment on above: Performed By: #### C P, CDP, MG ####[address] , [place] 4181483 Lab Director: Marcelino Lopez MD Erythrocyte distribution width (RBC) [Ratio] 15.3 % High 11.8-14.4 [facility] Comment on above: Performed By: #### C P, CDP, MG ####[address] , [facility]83 Lab Director: Marcelino Lopez MD Hematocrit (Bld) [Volume fraction] 33.3 % Low 36.3-47.1 [facility] Comment on above: Performed By: #### C P, CDP, MG ####[address] , [facility]83 Lab Director: Marcelino Lopez MD Hemoglobin (Bld) [Mass/Vol] 10.4 g/dL Low 11.9-15.1 [facility] Comment on above: Performed By: #### C P, CDP, MG ####[address] , [facility]83 Lab Director: Marcelino Lopez MD Immature granulocytes/100 WBC (Bld) 1 % High 0 [facility] Comment on above: Performed By: #### C P, CDP, MG ####[address] , [facility]83 Lab Director: Marcelino Lopez MD Lymphocytes (Bld) [#/Vol] 1.02 10*3/uL Low 1.10-3.70 [facility] Comment on above: Performed By: #### C P, CDP, MG ####[address] , [place] 1289983 Lab Director: Marcelino Lopez MD Lymphocytes/100 WBC (Bld) 7 % Low 24-43 [facility] Comment on above: Performed By: #### C P, CDP, MG ####[address] , [facility]83 [facility] Director: Marcelino Lopez MD MCH (RBC) [Entitic mass] 25.7 pg Normal 25.2-33.5 [facility] Comment on above: Performed By: #### C P, CDP, MG ####[address] , [facility]83 lab Director: Marcelino Lopez MD MCHC (RBC) [Mass/Vol] 31.2 g/dL Normal 28.4-34.8 [facility] Comment on above: Performed By: #### C P, CDP, MG ####[address] , [place] [address])[phone] Director: Marcelino Lopez MD MCV (RBC) [Entitic vol] 82.4 fL Low 82.6-102.9 [facility] Comment on above: Performed By: #### C P, CDP, MG ####[address] , [facility]83 lab Director: Marcelino Lopez MD Monocytes (Bld) [#/Vol] 0.81 10*3/uL Normal 0.10-1.20 [facility] Comment on above: Performed By: #### C P, CDP, MG ####[address] , [facility]83 lab Director: Marcelino Lopez MD Monocytes/100 WBC (Bld) 5 % Normal 3-12 [facility] Comment on above: Performed By: #### C P, CDP, MG ####[address] , [facility]83 lab Director: Marcelino Lopez MD Neutrophil (Seg) 86 % High 36-65 [facility] Comment on above: Performed By: #### C P, CDP, MG ####[address] , [facility]83 lab Director: Marcelino Lopez MD NRBC Automated 0.0 per 100 WBC Normal 0.0 [facility] Comment on above: Performed By: #### C P, CDP, MG ####[address] , [place] 255[address]83 Lab Director: Marcelino Lopez MD Platelet mean volume (Bld) [Entitic vol] 10.7 fL Normal 8.1-13.5 [facility] Comment on above: Performed By: #### C P, CDP, MG ####[address] [place] [address] Lab Director: Marcelino Lopez MD Platelets (Bld) [#/Vol] 331 10*3/uL Normal 138-453 [facility] Comment on above: Performed By: #### C P, CDP, MG ####[address] , [place] [phone] Director: Marcelino Lopez MD RBC (Bld) [#/Vol] 4.04 10*6/uL Normal 3.95-5.11 [facility] Comment on above: Performed By: #### C P, CDP, MG ####[address] [place] [address] Lab Director: Marcelino Lopez MD WBC (Bld) [#/Vol] 15.5 10*3/uL High 3.5-11.3 [facility] Comment on above: Performed By: #### C P, CDP, MG ####[address] , [place] 9[address]6583 Lab Director: Marcelino Lopez MD Comp Metabolic Profon 2022 Albumin [Mass/Vol] 3.9 g/dL Normal 3.5-5.2 [facility] Comment on above: Performed By: #### C P, CDP, MG ####[address] [place] [address]([phone] Director: Marcelino Lopez MD Albumin/Glob Ratio 1.0 Normal 1.0-2.5 [facility] Comment on above: Performed By: #### C P, CDP, MG ####[address] [place] [address] lab Director: Marcelino Lopez MD Alkaline Phos 97 U/L Normal 35-104 [facility] Comment on above: Performed By: #### C P, CDP, MG ####[address] [place] [address] lab Director: Marcelino Lopez MD ALT [Catalytic activity/Vol] 7 U/L Normal 5-33 [facility] Comment on above: Performed By: #### C P, CDP, MG ####[address] [place] [address] lab Director: Marcelino Lopez MD Anion gap [Moles/Vol] 10 mmol/L Normal 9-17 [facility] Comment on above: Performed By: #### C P, CDP, MG ####[address] [place] [address] lab Director: Marcelino Lopez MD AST [Catalytic activity/Vol] 16 U/L Normal <32 [facility] Comment on above: Performed By: #### C P, CDP, MG ####[address] , [place] 9029[address] lab Director: Marcelino Lopez MD Bilirubin [Mass/Vol] 0.2 mg/dL Low 0.3-1.2 [facility] Comment on above: Performed By: #### C P, CDP, MG ####[address] [place] [address] lab Director: Marcelino Lopez MD BUN/CRE Ratio 17 Normal 9-20 [facility] Comment on above: Performed By: #### C P, CDP, MG ####[address] [place] [address] Lab Director: Marcelino Lopez MD Calcium [Mass/Vol] 8.9 mg/dL Normal 8.6-10.4 [facility] Comment on above: Performed By: #### C P, CDP, MG ####[address] , [place] 1985483 Lab Director: Marcelino Lopez MD Chloride [Moles/Vol] 103 mmol/L Normal 98-107 [facility] Comment on above: Performed By: #### C P, CDP, MG ####[address] [place] [address] lab Director: Marcelino Lopez MD CO2 [Moles/Vol] 22 mmol/L Normal 20-31 [facility] Comment on above: Performed By: #### C P, CDP, MG ####[address] [place] [address] Lab Director: Marcelino Lopez MD Creatinine [Mass/Vol] 0.6 mg/dL Normal 0.5-0.9 [facility] Comment on above: Performed By: #### C P, CDP, MG ####[address] , [place] 2839983 Lab Director: Marcelino Lopez MD GFR/1.73 sq M.predicted among non-blacks MDRD (S/P/Bld) [Vol rate/Area] mL/min/{1.73_m2} Normal >60 [facility] Comment on above: Result Comment: These results are not intended for use in patients <18 years of age. eGFR results are calculated without a race factor using the 2020 CKD-EPI equation. Careful clinical correlation is recommended, particularly when comparing to results calculated using previous equations. The CKD-EPI equation is less accurate in patients with extremes of muscle mass, extra-renal metabolism of creatine, excessive creatine ingestion, or following therapy that affects renal tubular secretion. Performed By: #### C P, CDP, MG ####[address] , [place] [id number] Lab Director: Marcelino Lopez MD Glucose [Mass/Vol] 100 mg/dL High 70-99 [facility] Comment on above: Performed By: #### C P, CDP, MG ####[address] , [place] 5452783 Lab Director: Marcelino Lopez MD Potassium [Moles/Vol] 3.8 mmol/L Normal 3.7-5.3 [facility] Comment on above: Performed By: #### C P, CDP, MG ####[address] , [place] 1524383 Lab Director: Marcelino Lopez MD Protein [Mass/Vol] 7.8 g/dL Normal 6.4-8.3 [facility] Comment on above: Performed By: #### C P, CDP, MG ####[address] , [place] 3010483 Lab Director: Marcelino Lopez MD Sodium [Moles/Vol] 135 mmol/L Normal 135-144 [facility] Comment on above: Performed By: #### C P, CDP, MG ####[address] , [place] [id number] Lab Director: Marcelino Lopez MD Urea nitrogen [Mass/Vol] 10 mg/dL Normal 6-20 [facility] Comment on above: Performed By: #### C P, CDP, MG ####[address] , [place] 3709883 Lab Director: Marcelino Lopez MD Magnesiumon 04-23-2023 Magnesium [Mass/Vol] 1.9 mg/dL Normal 1.6-2.6 [facility] Comment on above: Performed By: #### B MP, ALT, AST #### [address] [place], [place] 5525183 [employer] Specialist: Marcelino Lopez MD #### FERI #### [facility] [address] [place] [address] [employer]ive Ordn[employer] Specialist: Higinio Bullock MD Strep Group A, Rapidon 04-23 Strep A, Molecular Positive Abnormal NEG [facility] Comment on above: Performed By: #### R SAB ####[facility] , [place] 8974183 Lab Director: Marcelino Lopez MD Source .THROAT SWAB Normal [facility] Comment on above: Performed By: #### R SAB ####[facility] [place] , [place] 9139883 Lab Director: Marcelino Lopez MD UA w/Reflex Cultureon 2022 Bilirubin, SemiQt,Ur Negative Normal NEG [facility] Comment on above: Performed By: #### U AX, UMICAO ####[facility] [place] , [place] 6485283 Lab Director: Marcelino Lopez MD Blood, Urine 3+ Abnormal NEG [facility] Comment on above: Performed By: #### U AX, UMICAO ####[facility] [place] , [place] 3099683 Lab Director: Marcelino Lopez MD Clarity (U) Clear Normal CLEAR [facility] Comment on above: Performed By: #### U AX, UMICAO ####[facility] [place] , [place] [id number] Lab Director: Marcelino Lopez MD Color (U) Yellow Normal YEL [facility] Comment on above: Performed By: #### U AX, UMICAO ####[facility] [place] , [place] [id number] Lab Director: Marcelino Lopez MD Glucose Ql (U) Negative Normal NEG [facility] Comment on above: Performed By: #### U AX, UMICAO ####[address] [place] [address] Lab Director: Marcelino Lopez MD Ketones Ql (U) 1+ mg/dL [facility] Comment on above: Performed By: #### U AX, UMICAO ####[address] [place] [address] Lab Director: Marcelino Lopez MD Leukocyte esterase Test strip Ql (U) Negative Normal NEG [facility] Comment on above: Performed By: #### U AX, UMICAO ####[address] [place] [address] Lab Director: Marcelino Lopez MD Nitrite,Ur Negative Normal NEG [facility] Comment on above: Performed By: #### U AX, UMICAO ####[address] [place] [address] Lab Director: Marcelino Lopez MD PH,Ur 6.0 Normal 5.0-9.0 [facility] Comment on above: Performed By: #### U AX, UMICAO ####[address] [place] [address] Lab Director: Marcelino Lopez MD Protein Ql (U) Negative Normal NEG [facility] Comment on above: Performed By: #### U AX, UMICAO ####[address] [place] [address] Lab Director: Marcelino Lopez MD Spec. [place],Ur 1.025 High 1.010-1.020 [facility] Comment on above: Performed By: #### U AX, UMICAO ####[address] [place] [address] Lab Director: Marcelino Lopez MD Urobilinogen,Ur Normal Normal 0.0-1.0 [facility] Comment on above: Performed By: #### U AX, UMICAO ####[address] [place] [address] lab Director: Marcelino Lopez MD Urinalysis,Microon 3 Bacteria TRACE Abnormal NONE [facility] Comment on above: Performed By: #### U AX, UMICAO ####[address] , [place] [id number] lab Director: Marcelino Lopez MD Epithelial cells LM Ql (Urine sed) 0 TO 2 Normal 0-25 [facility] Comment on above: Performed By: #### U AX, UMICAO ####[address] , [place] [id number] lab Director: Marcelino Lopez MD Urine RBC's GREATER THAN 100 Normal 0-2 [facility] Comment on above: Performed By: #### U AX, UMICAO ####[address] [place] [address] lab Director: Marcelino Lopez MD Urine WBC's 0 TO 2 Normal 0-5 [facility] Comment on above: Performed By: #### U AX, UMICAO ####[address] , [place] [id number] lab Director: Marcelino Lopez MD XR ANKLE RIGHT (MIN 3 VIEWS) on 04-16-2023 XR ANKLE RIGHT (MIN 3 VIEWS) EXAMINATION: THREE XRAY VIEWS OF THE RIGHT ANKLE; THREE XRAY VIEWS OF THE RIGHT FOOT 04/14/2023 3:39 pm COMPARISON: None. HISTORY: ORDERING SYSTEM PROVIDED HISTORY: fall pain TECHNOLOGIST PROVIDED HISTORY: fall pain; ORDERING SYSTEM PROVIDED HISTORY: pain fall TECHNOLOGIST PROVIDED HISTORY: pain fall FINDINGS: Right ankle x-ray: November 22, 2017 IMPRESSION: Right ankle x-ray: Extensive soft tissue swelling affecting both malleoli worse over the lateral malleolus. A well corticated bony fragment can be seen which is not likely to be acute. Ankle mortise is normal and symmetrical. Milder soft tissue swelling over the medial malleolus. Calcaneus and talus appear intact. Right foot x-ray: No acute fracture, dislocation or malalignment. Tarsal and metatarsal bones appear intact. No evidence of erosive or arthritic changes. RECOMMENDATION: 1. Ankle soft tissue swelling worse over the lateral malleolus. A well corticated lateral malleolar fragment is likely chronic related to old trauma. Milder medial malleolar soft tissue swelling. 2. No acute right foot abnormality. Interpreted by: Ashley Claros MD Signed by: Ashley Claros MD 04/16/23 Final result Normal [facility] XR FOOT RIGHT (MIN 3 VIEWS)o n 04-16-2023 XR FOOT RIGHT (MIN 3 VIEWS) EXAMINATION: THREE XRAY VIEWS OF THE RIGHT ANKLE; THREE XRAY VIEWS OF THE RIGHT FOOT 04/14/2023 3:39 pm COMPARISON: None. HISTORY: ORDERING SYSTEM PROVIDED HISTORY: fall pain TECHNOLOGIST PROVIDED HISTORY: fall pain; ORDERING SYSTEM PROVIDED HISTORY: pain fall TECHNOLOGIST PROVIDED HISTORY: pain fall FINDINGS: Right ankle x-ray: November 22, 2017 IMPRESSION: Right ankle x-ray: Extensive soft tissue swelling affecting both malleoli worse over the lateral malleolus. A well corticated bony fragment can be seen which is not likely to be acute. Ankle mortise is normal and symmetrical. Milder soft tissue swelling over the medial malleolus. Calcaneus and talus appear intact. Right foot x-ray: No acute fracture, dislocation or malalignment. Tarsal and metatarsal bones appear intact. No evidence of erosive or arthritic changes. RECOMMENDATION: 1. Ankle soft tissue swelling worse over the lateral malleolus. A well corticated lateral malleolar fragment is likely chronic related to old trauma. Milder medial malleolar soft tissue swelling. 2. No acute right foot abnormality. Interpreted by: Ashley Claros MD Signed by: Ashley Claros MD 04/16/23 Final result Normal [facility] Brain Natriuretic Peptideon 06-27-2022 Natriuretic peptide B (Bld) [Mass/Vol] pg/mL NINF - 300 pg/mL [facility] Comment on above: An age-independent cutoff point of 300 pg/ml has a 98% negative predictive value excluding acute heart failure. [facility] CBC with Auto Differentialon 06-27-2022 [facility] Absolute Immature Granulocyte 0.05 [facility] Absolute Lymph # 2.77 [facility] SECO URS [facility] Absolute Mercer # 0.52 [facility] Basophils (Bld) [#/Vol] 0.07 10*3/uL [facility] Basophils/100 WBC (Bld) 1 % 0 - 2 % [facility] Eosinophils/100 WBC (Bld) 5 % High 1 - 4 % [facility] Hematocrit (Bld) [Volume fraction] 37.6 % 36.3 - 47.1 % [facility] Hemoglobin (Bld) [Mass/Vol] 12.2 g/dL 11.9 - 15.1 g/dL [facility] Immature granulocytes/100 WBC (Bld) 1 % High 0 [facility] Interpretation and review of laboratory results Abnormal [facility] Lymphocytes/100 WBC (Bld) 37 % 24 - 43 % [facility] MCH (RBC) [Entitic mass] 28.2 pg 25.2 - 33.5 pg [facility] MCHC (RBC) [Mass/Vol] 32.4 g/dL 28.4 - 34.8 g/dL [facility] MCV (RBC) [Entitic vol] 87.0 fL 82.6 - 102.9 fL [facility] Monocytes/100 WBC (Bld) 7 % 3 - 12 % [facility] NRBC Automated 0.0 0.0 per 100 WBC [facility] Platelet distribution width (Bld) [Ratio] 14.6 % High 11.8 - 14.4 % [facility] Platelet mean volume (Bld) [Entitic vol] 10.1 fL 8.1 - 13.5 fL [facility] Platelets (Bld) [#/Vol] 358 10*3/uL [facility] RBC (Bld) [#/Vol] 4.32 10*6/uL 3.95 - 5.1 1 m/uL [facility] Segmented neutrophils/100 WBC (Bld) 49 % 36 - 65 % [facility] Segs Absolute 3.71 [facility] WBC (Bld) [#/Vol] 7.5 10*3/uL [facility] CMPon 06-27-2022 Albumin [Mass/Vol] 3.8 g/dL 3.5 - 5.2 g/dL [facility] Albumin/Globulin [Mass ratio] 1.1 {ratio} 1.0 - 2.5 [facility] ALP [Catalytic activity/Vol] 91 U/L 35 - 104 U/L [facility] ALT [Catalytic activity/Vol] 9 U/L 5 - 33 U/L [facility] Anion gap [Moles/Vol] 9 mmol/L 9 - 17 mmol/L [facility] AST [Catalytic activity/Vol] 16 U/L NINF - 32 U/L [facility] Bilirubin [Mass/Vol] 0.2 mg/dL Low 0.3 - 1 .2 mg/dL [facility] Calcium [Mass/Vol] 8.7 mg/dL 8.6 - 10. 4 mg/dL [facility] Chloride [Moles/Vol] 105 mmol/L 98 - 10 7 mmol/L [facility] CO2 [Moles/Vol] 23 mmol/L 20 - 31 mmol/L [facility] Creatinine [Mass/Vol] 0.72 mg/dL 0.50 - 0.90 mg/dL [facility] GFR/1.73 sq M.predicted MDRD (S/P/Bld) [Vol rate/Area] - PINF [facility] Comment on above: These results are not intended for use in patients <18 years of age. eGFR results are calculated without a race factor using the 2020 CKD-EPI equation. Careful clinical correlation is recommended, particularly when comparing to results calculated using previous equations. The CKD-EPI equation is less accurate in patients with extremes of muscle mass, extra-renal metabolism of creatine, excessive creatine ingestion, or following therapy that affects renal tubular secretion. Glucose [Mass/Vol] 96 mg/dL 70 - 99 mg/dL [facility] Interpretation and review of laboratory results Abnormal [facility] Potassium [Moles/Vol] 4.1 mmol/L 3.7 - 5.3 mmol/L [facility] Protein [Mass/Vol] 7.4 g/dL 6.4 - 8.3 g/dL [facility] Sodium [Moles/Vol] 137 mmol/L 135 - 144 mmol/L [facility] Urea nitrogen [Mass/Vol] 11 mg/dL 6 - 20 mg/dL [facility] Urea nitrogen/Creatinine (Bld) [Mass ratio] 15 9 - 20 [facility] Magnesiumon 06-27-2022 Magnesium [Mass/Vol] 2.2 mg/dL 1.6 - 2 .6 mg/dL [facility] No Panel Informationon 06-27 [facility] Troponinon 06-27-2022 Troponin I.cardiac DL <= 0.01 ng/mL [Mass/Vol] ng/L 0 - 14 ng/L [facility] Comment on above: High Sensitivity Tro ponin values cannot be compared with other Troponin methodologies. XR CHEST PORTABLEon 06-27-19 Unchanged appearance of the chest without acute airspace disease identified. [facility] R[facility] CONSOLIDATED EXAMINATION: ONE XRAY VIEW OF THE CHEST 06/27/2022 1:43 pm COMPARISON: 06/28/2020 HISTORY: ORDERING SYSTEM PROVIDED HISTORY: sob TECHNOLOGIST PROVIDED HISTORY: sob FINDINGS: The cardiomediastinal silhouette is unchanged in appearance. There is no consolidation, pneumothorax, or evidence of edema. No effusion is appreciated. The osseous structures are unchanged in appearance. [facility] CONSOLIDATED Justus Oliva MD - 06/27/2022 EXAMINATION: ONE XRAY VIEW OF THE CHEST 06/27/2022 1:43 pm COMPARISON: 06/28/2020 HISTORY: ORDERING SYSTEM PROVIDED HISTORY: sob TECHNOLOGIST PROVIDED HISTORY: sob FINDINGS: The cardiomediastinal silhouette is unchanged in appearance. There is no consolidation, pneumothorax, or evidence of edema. No effusion is appreciated. The osseous structures are unchanged in appearance. IMPRESSION: Unchanged appearance of the chest without acute airspace disease identified. [facility] [employer] Work Phone: Radiology Study observation (narrative) [facility] Work Phone: XR CHEST PORTABLEOrdered By: Justus Oliva on 06-27-2022 [facility] Work Phone: CBC Auto Differentialon 12-13 Absolute Eos # 0.25 [facility] SECOUR S [facility] Absolute Immature Granulocyte 0.06 [facility] Absolute Lymph # 2.56 [place] [facility] Absolute Mercer # 0.52 [facility] SECOU RS [facility] Basophils (Bld) [#/Vol] 0.05 10*3/uL [facility] Basophils/100 WBC (Bld) 1 % 0 - 2 % [facility] Eosinophils/100 WBC (Bld) 3 % 1 - 4 % [facility] Hematocrit (Bld) [Volume fraction] 36.1 % Low 36.3 - 47.1 % [facility] Hemoglobin (Bld) [Mass/Vol] 11.0 g/dL Low 11.9 - 15.1 g/dL [facility] Immature granulocytes/100 WBC (Bld) 1 % High 0 [facility] Interpretation and review of laboratory results Abnormal [facility] Lymphocytes/100 WBC (Bld) 28 % 24 - 43 % [facility] MCH (RBC) [Entitic mass] 27.0 pg 25.2 - 33.5 pg [facility] MCHC (RBC) [Mass/Vol] 30.5 g/dL 28.4 - 34.8 g/dL [facility] MCV (RBC) [Entitic vol] 88.7 fL 82.6 - 102.9 fL [facility] Monocytes/100 WBC (Bld) 6 % 3 - 12 % [facility] NRBC Automated 0.0 0.0 per 100 WBC [facility] Platelet distribution width (Bld) [Ratio] 14.1 % 11.8 - 14.4 % [facility] Platelet mean volume (Bld) [Entitic vol] 11.0 fL 8.1 - 13.5 fL [facility] Platelets (Bld) [#/Vol] 305 10*3/uL [facility] RBC (Bld) [#/Vol] 4.07 10*6/uL 3.95 - 5.1 1 m/uL [facility] Segmented neutrophils/100 WBC (Bld) 61 % 36 - 65 % [facility] Segs Absolute 5.88 [facility] WBC (Bld) [#/Vol] 9.3 10*3/uL [facility] Ferritinon 12-29-2021 Ferritin [Mass/Vol] 23 ng/mL 13 - 150 ng/mL [facility] Vitamin B12on 12-29-2021 Cobalamin (Vitamin B12) [Mass/Vol] 168 pg/mL Low 232 - 1245 pg/mL [facility] Interpretation and review of laboratory results Abnormal [facility] XR HUMERUS LEFT (MIN 2 VIEWS )Ordered By: Ebony Bonds on 02-12-2021 No acute osseous abnormality. [employer] Phone: EXAMINATION: TWO XRAY VIEWS OF THE LEFT HUMERUS 02/12/2021 5:05 pm COMPARISON: June 08, 2016 HISTORY: ORDERING SYSTEM PROVIDED HISTORY: pain TECHNOLOGIST PROVIDED HISTORY: pain FINDINGS: There is no evidence of acute fracture. There is normal alignment. No acute joint abnormality. No focal osseous lesion. No focal soft tissue abnormality. [employer] Phone: Mian, pn Incoming Radiant Results From [employer] - 02/12/2021 5:11 PM EDT EXAMINATION: TWO XRAY VIEWS OF THE LEFT HUMERUS 02/12/2021 5:05 pm COMPARISON: June 08, 2016 HISTORY: ORDERING SYSTEM PROVIDED HISTORY: pain TECHNOLOGIST PROVIDED HISTORY: pain FINDINGS: There is no evidence of acute fracture. There is normal alignment. No acute joint abnormality. No focal osseous lesion. No focal soft tissue abnormality. IMPRESSION: No acute osseous abnormality. [employer] Work Phone: [employer] Phone: CBC AUTO DIFFon 01-14-2021 BASO # 0.1 103/ul Normal 0.0-0.1 [facility] Comment on above: Performed By: #### C BC #### [facility] [address] [id number] Lan Karolina Basophils/100 WBC (Bld) 0.9 % Normal 0.2-2.0 [facility] Comment on above: Performed By: #### C BC #### [facility] [address] [id number] Lan Karolina EO # 0.3 103/ul Normal 0.0-0.7 [facility] Comment on above: Performed By: #### C BC #### [facility] [address] [id number] Lan Karolina Eosinophils/100 WBC (Bld) 4.3 % Normal 0.9-7.0 [facility] Comment on above: Performed By: #### C BC #### [facility] [address] [place] [address] Lan Karolina Erythrocyte distribution width (RBC) [Ratio] 12.7 % Normal 11.0-15.0 [facility] Comment on above: Performed By: #### C BC #### [facility] [address] [place] [address] Lan Karolina Hematocrit (Bld) [Volume fraction] 39.3 % Normal 36.0-48.0 [facility] Comment on above: Performed By: #### C BC #### [facility] [address] [place], [place] [id number] Lan Karolina Hemoglobin (Bld) [Mass/Vol] 12.6 g/dL Normal 12.0-16.0 [facility] Comment on above: Performed By: #### C BC #### [facility] [address] [address] Lan Karolina IG # 0.03 10e3/ul Normal 0.00-0.03 [facility] Comment on above: Performed By: #### C BC #### [facility] [address] [id number] Lan Karolina IG % 0.5 % Normal 0.0-0.5 [facility] Comment on above: Performed By: #### C BC #### [facility] [address] [place], [place] [id number] Lan Karolina LYMPH # 2.1 103/ul Normal 1.2-3.8 [facility] Comment on above: Performed By: #### C BC #### [facility] [address] [place], [place] [id number] Lan Karolina Lymphocytes/100 WBC (Bld) 32.9 % Normal 20.5-60.0 [facility] Comment on above: Performed By: #### C BC #### [facility] [address] [place], [place] [phone] Lan Karolina MANUAL DIFF REQ NO Normal [facility] Comment on above: Performed By: #### C BC #### [facility] [address] [place], [place] [phone] Lan Karolina MCH (RBC) [Entitic mass] 28.8 pg Normal 26.7-34.0 [facility] Comment on above: Performed By: #### C BC #### [facility] [address] [place] [address] Lan Karolina MCHC (RBC) [Mass/Vol] 32.1 g/dL Normal 29.9-35.2 [facility] Comment on above: Performed By: #### C BC #### [facility] [address] [place] [address] Lan Karolina MCV (RBC) [Entitic vol] 89.7 fL Normal 81.0-99.0 [facility] Comment on above: Performed By: #### C BC #### [facility] [address] [place], [place] [id number] Lan Karolina MONO # 0.6 103/ul Normal 0.3-0.8 [facility] Comment on above: Performed By: #### C BC #### [facility] [address] [place], [place] [id number] Lan Karolina Monocytes/100 WBC (Bld) 10.1 % Normal 1.7-12.0 [facility] Comment on above: Performed By: #### C BC #### [facility] [address] [place] [address] Lan Karolina NEUT # 3.2 103/ul Normal 1.4-6.5 [facility] Comment on above: Performed By: #### C BC #### [facility] [address] [place], [place] [id number] Lan Turcios Neutrophils/100 WBC (Bld) 51.3 % Normal 43.0-75.0 [facility] Comment on above: Performed By: #### C BC #### [facility] [address] [place], [place] [phone] Lan Turcios Platelet mean volume (Bld) [Entitic vol] 11.3 fL Normal 9.5-13.5 [facility] Comment on above: Performed By: #### C BC #### [facility] [address] [place], [place] [address] Lan Turcios PLT 316 103/ul Normal 150-450 [facility] Comment on above: Performed By: #### C BC #### [facility] [address] [place] [address] Lan Turcios RBC 4.38 106/ul Normal 4.20-5.40 [facility] Comment on above: Performed By: #### C BC #### [facility] [address] [place], [place] [id number] Lan Turcios WBC 6.3 103/ul Normal 4.0-11.0 [facility] Comment on above: Performed By: #### C BC #### [facility] [address] [place] [id number] ABD/PELV W CONon 01-15-[address] ABD/PELV W CON EXAM: CT ABD/PELV W CON Comparison: None available. CLINICAL INDICATION: Lower abdominal pain. TECHNIQUE: Axial images through the abdomen and pelvis were obtained with intravenous contrast. Coronal and sagittal reconstructions were obtained. Dose reduction techniques were achieved by using automated exposure control and/or adjustment of mA and/or kV according to patient size and/or use of iterative reconstruction technique. CONTRAST: 100 mL of Omnipaque 300 was administered intravenously. FINDINGS: LOWER CHEST: Elevation of the right hemidiaphragm. Trace peribronchial thickening. LIVER: Hepatomegaly. GALLBLADDER: Prior cholecystectomy. BILE DUCTS: Unremarkable. PANCREAS: Unremarkable. SPLEEN: Splenomegaly. ADRENALS: Unremarkable. KIDNEYS/URETERS: Unremarkable. BLADDER: Unremarkable. PELVIC STRUCTURES: 3.9 cm right ovarian cystic lesion. Uterus is present. GI TRACT: Evaluation of bowel limited by fecal contents and lack of distention. No evidence of bowel obstruction. Normal appendix. Prior gastric bypass. Large amount of stool in the colon. No evidence of bowel obstruction. VASCULAR STRUCTURES: Unremarkable. LYMPH NODES: No pathologic lymphadenopathy by CT size criteria. PERITONEUM: No free air. No abscess. SOFT TISSUES: Ventral hernia containing fat and loops of small and large bowel extending from the upper abdomen to the umbilicus, with a wide neck measuring up to 7.8 cm superiorly and 5.2 cm inferiorly and without evidence of obstruction. OSSEOUS STRUCTURES: No acute osseous abnormality. No suspicious osseous lesions. Transitional lumbosacral anatomy. Old left lower rib fractures. IMPRESSION: No acute findings to definitely explain lower abdominal pain. No evidence of bowel obstruction at this time. Large amount of stool in the colon. Ventral hernia containing loops of small and large bowel as described above, without evidence of obstruction. 3.9 cm right ovarian cystic lesion. Recommend further evaluation with pelvic ultrasound. Hepatosplenomegaly. Prior gastric bypass. Prior cholecystectomy. Normal appendix. Electronically authenticated by: PING OWENS Date: 2021-01-14 17:54 Normal [facility] ER URINE PROFILEon 1 Bilirubin Ql (U) Negative Normal NEGATIVE [facility] Comment on above: Performed By: #### E RUR #### [facility] [address] [place] [address] Lan Turcios Clarity (U) SL CLOUDY Abnormal CLEAR [facility] Comment on above: Performed By: #### E RUR #### [facility] [address] [place] [address] Lan Turcios Color (U) LT. YELLOW Normal YELLOW [facility] Comment on above: Performed By: #### E RUR #### [facility] [address] [place] [address] Lan Turcios ERUAHD A micrscopic examination will be performed if indicated. Normal [facility] Comment on above: Performed By: #### E RUR #### [facility] [address] [place] [address] Lan Karolina Glucose Ql (U) Negative Normal NEGATIVE [facility] Comment on above: Performed By: #### E RUR #### [facility] [address] [place] [address] Lan Karolina Hemoglobin Ql (U) Negative Normal NEGATIVE [facility] Comment on above: Performed By: #### E RUR #### [facility] [address] [place] [address] Lan Karolina Ketones Ql (U) Negative Normal NEGATIVE [facility] Comment on above: Performed By: #### E RUR #### [facility] [address] [place] [address] Lan Karolina LEUKOCYTES Negative Normal NEGATIVE [facility] Comment on above: Performed By: #### E RUR #### [facility] [address] [place] [address] Lan Karolina Nitrite Ql (U) Negative Normal NEGATIVE [facility] Comment on above: Performed By: #### E RUR #### [facility] [address] [place] [address] Lan Karolina pH (U) 5.0 [pH] Normal 5-9 [facility] Comment on above: Performed By: #### E RUR #### [facility] [address] [place] [address] Lan Karolina SPEC GRAVITY 1.020 Normal 1.005-<=1.02 5 [facility] Comment on above: Performed By: #### E RUR #### [facility] [address] [place] [address] Lan Karolina UA PROTEIN Negative Normal NEGATIVE/ TRACE [facility] Comment on above: Performed By: #### E RUR #### [facility] [address] [place] [address] Lan Karolina UR MICRO IND NOT INDICATED Normal [facility] Comment on above: Performed By: #### E RUR #### [facility] [address] [place] [address] Lan Karolina Urobilinogen Qn (U) 0.2 {Marques'U}/dL Normal 0.2 - 1. 0 [facility] Comment on above: Performed By: #### E RUR #### [facility] [address] [place], [place] [phone] Lan Karolina LACTATE/LACTIC ACIDon 2020 Lactate [Moles/Vol] 0.9 mmol/L Normal 0.7-2.0 [facility] Comment on above: Performed By: #### L ACT #### [facility] [address] [place], [place] [id number] Lan Karolina LIPASEon 01-14-2021 Lipase [Catalytic activity/Vol] 42.0 U/L Normal 23.0-300.0 [facility] Comment on above: Performed By: #### C PATRICIA LIPA #### [facility] [address] [place], [place] [id number] Lan Karolina PREG HCG QUALon 01-14-2021 , QUAL Negative Normal NEGATIVE [facility] Comment on above: Performed By: #### P REG #### [facility] [address] [place] [address] Lanadrian Turcios PROF 14(COMP METB)on 021 Albumin [Mass/Vol] 3.7 g/dL Normal 3.5-5.0 [facility] Comment on above: Performed By: #### C PATRICIA LIPA #### [facility] [address] [place], [place] [id number] Lan Karolina Albumin/Globulin [Mass ratio] 0.8 {ratio} Normal [facility] Comment on above: Performed By: #### C PATRICIA, LIPA #### [facility] [address] [place], [place] [id number] Lan Karolina ALP [Catalytic activity/Vol] 84 U/L Normal 38-126 [facility] Comment on above: Performed By: #### C PATRICIA LIPA #### [facility] [address] [place] [address] Lan Karolina ALT [Catalytic activity/Vol] 22 U/L Normal 9-52 [facility] Comment on above: Performed By: #### C PATRICIA LIPA #### [facility] [address] [address] Lan Karolina Anion gap [Moles/Vol] 14.3 mmol/L Normal [facility] Comment on above: Performed By: #### C PATRICIA, LIPA #### [facility] [address] [address] Lan Karolina AST [Catalytic activity/Vol] 17 U/L Normal 14-36 [facility] Comment on above: Performed By: #### C PATRICIA, LIPA #### [facility] [address] [address] Lan Karolina Bilirubin [Mass/Vol] 0.3 mg/dL Normal 0.2-1.3 [facility] Comment on above: Performed By: #### C PATRICIA LIPA #### [facility] [address] [place] [address] Lan Karolina Calcium [Mass/Vol] 9.8 mg/dL Normal 8.4-10.2 [facility] Comment on above: Performed By: #### C PATRICIA LIPA #### [facility] [address] [place] [address] Lan Karolina Chloride [Moles/Vol] 102 mmol/L Normal 98-107 [facility] Comment on above: Performed By: #### C PATRICIA LIPA #### [facility] [address] [place] [address] Lan Karolina CO2 [Moles/Vol] 27.7 mmol/L Normal 22.0-30.[address] [facility] Comment on above: Performed By: #### C PATRICIA, LIPA #### [facility] [address] [place] [address] Lan Karolina Creatinine [Mass/Vol] 0.70 mg/dL Normal 0.52-1.04 [facility] Comment on above: Performed By: #### C PATRICIA LIPA #### [facility] [address] [place] [address] Lan Karolina EGFR-AF CHINESE >60 Normal >=[address] [facility] Comment on above: Performed By: #### C PATRICIA LIPA #### [facility] [address] [address] Lan Karolina EGFR-NON AF CHINESE >60 Normal >=60 [facility] Comment on above: Performed By: #### C MADISON GOMEZ #### [facility] [address] [id number] Lan Karolina Globulin (S) [Mass/Vol] 4.4 g/dL Normal [facility] Comment on above: Performed By: #### C PATRICIA, LIPA #### [facility] [address] [address] Lan Karolina Glucose [Mass/Vol] 108 mg/dL Critically high 74-106 [facility] Comment on above: Performed By: #### C PATRICIA, LIPA #### [facility] [address] [place] [address] Lan Karolina Potassium [Moles/Vol] 4.0 mmol/L Normal 3.4-5.0 [facility] Comment on above: Performed By: #### C PATRICIA, LIPA #### [facility] [address] [place] [address] Lan Karolina Protein [Mass/Vol] 8.1 g/dL Normal 6.1-8.2 [facility] Comment on above: Performed By: #### C PATRICIA LIPA #### [facility] [address] [place] [address] Lan Karolina Sodium [Moles/Vol] 140 mmol/L Normal 137-145 [facility] Comment on above: Performed By: #### C PATRICIA, LIPA #### [facility] [address] [place] [address] Lan Karolina Urea nitrogen [Mass/Vol] 12.0 mg/dL Normal 7.0-17.0 [facility] Comment on above: Performed By: #### C PATRICIA LIPA #### [facility] [address] [place] [address] Lan Karolina Urea nitrogen/Creatinine [Mass ratio] 17.1 mg/mg Normal [facility] Comment on above: Performed By: #### C PATRICIA LIPA #### [facility] [address] [address] Lan Turcios PROTIMEon 01-14-2021 INR Coag (PPP) [Relative time] 0.96 {INR} Normal [facility] Comment on above: Performed By: #### P TT, PT #### [facility] [address] [place], [place] [phone] Lan Turcios INR GUIDELINES SEE BELOW Normal [facility] Comment on above: Result Comment: BRANT RED INR: 2.0 - 3.0 CONDITIONS NOT LISTED BELOW 2.5 - 3.5 FOR PROSTHETIC HEART VALVE REPLACEMENT 2.5 - 3.5 RECURRENT THROMBOSIS Performed By: #### P TT, PT #### [facility] [address] [place], [place] [phone] Lan Turcios PT Coag (PPP) [Time] 10.4 s Normal 9.0-11.6 [facility] Comment on above: Performed By: #### P TT, PT #### [facility] [address] [place], [place] [phone] Lan Turcios PTTon 01-14-2021 aPTT Coag (Bld) [Time] 26.8 s Normal 22.3-36.2 [facility] Comment on above: Performed By: #### P TT, PT #### [facility] [address] [place], [place] [phone] Lan Turcios Basic Metabolic PanelOrdered By: Maynor Rivera on 11-25-2020 Anion gap [Moles/Vol] 12 mmol/L 9 - 17 mmol/L [employer] [employer] Phone: Calcium [Mass/Vol] 7.6 mg/dL Low 8.6 - 10. 4 mg/dL [facility] Phone: Chloride [Moles/Vol] 104 mmol/L 98 - 10 7 mmol/L [facility] Phone: CO2 [Moles/Vol] 20 mmol/L 20 - 31 mmol/L [facility] Phone: Creatinine [Mass/Vol] 0.55 mg/dL 0.50 - 0.90 mg/dL [facility] Phone: GFR >60 >60 mL/min [employer] Work Phone: GFR Non- >60 >60 mL/min [employer] Work Phone: Glucose [Mass/Vol] 127 mg/dL High 70 - 99 mg/dL [facility] Work Phone: Interpretation and review of laboratory results Abnormal [employer] Work Phone: Potassium [Moles/Vol] 4.1 mmol/L 3.7 - 5.3 mmol/L [facility] Phone: Sodium [Moles/Vol] 136 mmol/L 135 - 144 mmol/L [facility] Work Phone: Urea nitrogen (BldV) [Mass/Vol] 12 mg/dL 6 - 20 mg/dL [facility] Work Phone: Urea nitrogen/Creatinine (Bld) [Mass ratio] 22 High [facility] Work Phone: [employer] Work Phone: CBC Auto DifferentialOrdered By: Maynor Rivera on 11-25-2020 Absolute [employer] # 0.28 [place] [facility] Work Phone: Absolute Immature Granulocyte 0.03 [facility] Work Phone: Absolute Lymph # 2.39 [facility] Work Phone: Absolute [place] # 0.67 [facility] Work Phone: Basophils (Bld) [#/Vol] 0.07 10*3/uL [employer] Work Phone: Basophils/100 WBC (Bld) 1 % 0 - 2 % [employer] Work Phone: Differential Type NOT REPORTED [facility] Work Phone: Eosinophils/100 WBC (Bld) 4 % 1 - 4 % [employer] Work Phone: Hematocrit (Bld) [Volume fraction] 38.3 % 36.3 - 47.1 % [facility] Phone: Hemoglobin.gastrointes tinal spec 1 Ql (Stl) 12.0 g/dL 11.9 - 15.1 g/dL [facility] Phone: Immature granulocytes/100 WBC (Bld) 1 % High 0 [facility] Phone: Interpretation and review of laboratory results Abnormal [facility] [employer] Phone: Lymphocytes/100 WBC (Bld) 37 % 24 - 43 % [facility] Phone: MCH (RBC) [Entitic mass] 29.8 pg 25.2 - 33.5 pg [facility] Phone: MCHC (RBC) [Mass/Vol] 31.3 g/dL 28.4 - 34.8 g/dL [facility] Phone: MCV (RBC) [Entitic vol] 95.0 fL 82.6 - 102.9 fL [facility] Phone: Monocytes/100 WBC (Bld) 11 % 3 - 12 % [facility] Phone: NRBC Automated 0.0 0.0 per 100 WBC [facility] Phone: Platelet distribution width (Bld) [Ratio] 13.5 % 11.8 - 14.4 % [facility] Phone: Platelet Estimate NOT REPORTED [facility] Phone: Platelet mean volume (Bld) [Entitic vol] 10.5 fL 8.1 - 13.5 fL [facility] Phone: Platelets (Bld) [#/Vol] 314 10*3/uL [facility] Phone: RBC (Bld) [#/Vol] 4.03 10*6/uL 3.95 - 5.1 1 m/uL [facility] Phone: RBC (Bld) [#/Vol] NOT REPORTED [facility] Phone: Segmented neutrophils/100 WBC (Bld) 46 % 36 - 65 % [facility] Phone: Segs Absolute 2.96 [employer] Work Phone: WBC (Bld) [#/Vol] 6.4 10*3/uL [facility] Phone: WBC (Bld) [#/Vol] NOT REPORTED [facility] Phone: [facility] Phone: Laboratory - Chemistry and C hemistry - challengeOrdered By: Maynor Rivera on 11-25-2020 GFR/1.73 sq M.predicted MDRD (S/P/Bld) [Vol rate/Area] [facility] Phone: Comment on above: Average GFR for 40-4 9 years old: 99 mL/min/1.73sq m Chronic Kidney Disease: <60 mL/min/1.73sq m Kidney failure: <15 mL/min/1.73sq m eGFR calculated using average adult body mass. Additional eGFR calculator available at: http://www.Archive/multiple_crcl_2012.htm Stage 1: Some kidney damage normal GFR Stage 2: Mild kidney damage GFR 60-89 Stage 3: Moderate kidney damage GFR 30-59 Stage 4: Severe kidney damage GFR 15-29 Stage 5: Severe kidney damage GFR <15 ESRD - chronic treatment by dialysis or transplant PTH, IntactOrdered By: Maynor Rivera on 11-25-2020 Interpretation and review of laboratory results Abnormal [facility] Phone: Pth Intact 105.3 pg/mL High 15.0 - 65.0 pg/mL [facility] Phone: Comment on above: SAMPLES FROM PATIENT S ROUTINELY RECEIVING HIGH DOSE BIOTIN THERAPY MAY SHOW FALSELY DEPRESSED RESULTS. ADDITIONAL INFORMATION MAY BE REQUIRED FOR DIAGNOSIS. [facility] Phone: TSH With Reflex [id number] y: Maynor Rivera on 11-25-2020 TSH Qn 2.04 m[IU]/L [facility] Phone: [facility] Phone: Vitamin B12 & FolateOrdered By: Maynor Rivera on 11-25-2020 Cobalamin (Vitamin B12) [Mass/Vol] 248 pg/mL 232 - 1245 pg/mL [facility] Phone: Folate 9.2 ng/mL >4.8 [facility] Phone: [facility] Phone: Vitamin D 25 HydroxyOrdered By: Maynor Rivera on 11-25-2020 Interpretation and review of laboratory results Abnormal [facility] Phone: Vit D, 25-Hydroxy 6.3 ng/mL Low 30.0 - 100 .0 ng/mL [facility] Phone: Comment on above: Reference Range: Vitamin D status Range Deficiency <20 ng/mL Mild Deficiency 20-30 ng/mL Sufficiency 30-100 ng/mL Toxicity >100 ng/mL [facility] Phone: Otheron 06-28-2020 EXAMINATION: THREE XRAY VIEWS OF THE LEFT HAND; TWO XRAY VIEWS OF THE RIGHT KNEE; ONE XRAY VIEW OF THE PELVIS; 6 XRAY VIEWS OF THE RIGHT RIBS WITH FRONTAL XRAY VIEW OF THE CHEST; TWO XRAY VIEWS OF THE LEFT SHOULDER 06/28/2020 2:22 pm COMPARISON: Portable chest from 04/04/2020 HISTORY: ORDERING SYSTEM PROVIDED HISTORY: pain TECHNOLOGIST PROVIDED HISTORY: pain 44-year-old female with left hand, right knee, pelvic, right-sided rib and chest pain as well as left shoulder pain FINDINGS: Left shoulder: Left AC and glenohumeral joints grossly unremarkable. Visualized left-sided ribs appear intact. No acute fracture or dislocation. Left hand: Osseous alignment is normal. Joint spaces are well maintained. No marginal erosions are identified. No acute fracture or gross dislocation is seen. No focal soft tissue swelling is evident. Right knee: Osseous alignment is normal. No suprapatellar joint effusion. Joint spaces are well maintained. No acute fracture or dislocation. No suspicious osteolytic or osteoblastic lesions. Pelvis: Mild degenerative changes in the lower lumbar spine. Surgical clips projecting adjacent to the bilateral hip joint spaces. Both femoral heads project over the bilateral acetabula without clear evidence for acute fracture, dislocation or femoral head flattening. Iliac wings and pubic rami symmetric in appearance. Pelvic phleboliths. Moderate stool burden. Chest/right-sided ribs: Trachea midline. Cardiac and mediastinal contours within normal limits. No pneumothorax. No acute focal airspace consolidation or pleural effusions. No acute osseous abnormality evident. No acute displaced right-sided rib fracture deformity evident. Prior cholecystectomy. [facility] Phone: Mian, Mhpn Incoming Radiant Results From [employer] - 06/28/2020 2:42 PM EST EXAMINATION: THREE XRAY VIEWS OF THE LEFT HAND; TWO XRAY VIEWS OF THE RIGHT KNEE; ONE XRAY VIEW OF THE PELVIS; 6 XRAY VIEWS OF THE RIGHT RIBS WITH FRONTAL XRAY VIEW OF THE CHEST; TWO XRAY VIEWS OF THE LEFT SHOULDER 06/28/2020 2:22 pm COMPARISON: Portable chest from 04/04/2020 HISTORY: ORDERING SYSTEM PROVIDED HISTORY: pain TECHNOLOGIST PROVIDED HISTORY: pain 44-year-old female with left hand, right knee, pelvic, right-sided rib and chest pain as well as left shoulder pain FINDINGS: Left shoulder: Left AC and glenohumeral joints grossly unremarkable. Visualized left-sided ribs appear intact. No acute fracture or dislocation. Left hand: Osseous alignment is normal. Joint spaces are well maintained. No marginal erosions are identified. No acute fracture or gross dislocation is seen. No focal soft tissue swelling is evident. Right knee: Osseous alignment is normal. No suprapatellar joint effusion. Joint spaces are well maintained. No acute fracture or dislocation. No suspicious osteolytic or osteoblastic lesions. Pelvis: Mild degenerative changes in the lower lumbar spine. Surgical clips projecting adjacent to the bilateral hip joint spaces. Both femoral heads project over the bilateral acetabula without clear evidence for acute fracture, dislocation or femoral head flattening. Iliac wings and pubic rami symmetric in appearance. Pelvic phleboliths. Moderate stool burden. Chest/right-sided ribs: Trachea midline. Cardiac and mediastinal contours within normal limits. No pneumothorax. No acute focal airspace consolidation or pleural effusions. No acute osseous abnormality evident. No acute displaced right-sided rib fracture deformity evident. Prior cholecystectomy. IMPRESSION: Left shoulder: No acute fracture or dislocation. Left hand: No acute fracture or dislocation. Right knee: No acute fracture or dislocation. Pelvis: No acute osseous abnormality. Chest/right-sided ribs: 1. No acute focal airspace consolidation. 2. No acute displaced right-sided rib fracture deformity evident. [employer] Work Phone: Left shoulder: No acute fracture or dislocation. Left hand: No acute fracture or dislocation. Right knee: No acute fracture or dislocation. Pelvis: No acute osseous abnormality. Chest/right-sided ribs: 1. No acute focal airspace consolidation. 2. No acute displaced right-sided rib fracture deformity evident. [employer] Work Phone: CBC Auto Differentialon Basophils (Bld) [#/Vol] 0.07 10*3/uL [place] Basophils/100 WBC (Bld) 1 % 0 - 2 % [place] Differential Type NOT REPORTED [place] Eosinophils (Bld) [#/Vol] 0.28 10*3/uL [place] Eosinophils/100 WBC (Bld) 4 % 1 - 4 % [place] Erythrocyte distribution width (RBC) [Ratio] 13.9 % 11.8 - 14.4 % [place] Hematocrit (Bld) [Volume fraction] 40.5 % 36.3 - 47.1 % [place] Hemoglobin (Bld) [Mass/Vol] 12.9 g/dL 11.9 - 15.1 g/dL [place] Immature granulocytes (Bld) [#/Vol] 0.04 10*3/uL [place] Immature granulocytes (Bld) [#/Vol] 1 % High 0 [place] Interpretation and review of laboratory results Abnormal [place] Lymphocytes (Bld) [#/Vol] 3.14 10*3/uL [place] Lymphocytes/100 WBC (Bld) 39 % 24 - 43 % [place] MCH (RBC) [Entitic mass] 29.1 pg 25.2 - 33.5 pg [place] MCHC (RBC) [Mass/Vol] 31.9 g/dL 28.4 - 34.8 g/dL [place] MCV (RBC) [Entitic vol] 91.4 fL 82.6 - 102.9 fL [place] Monocytes (Bld) [#/Vol] 0.58 10*3/uL [place] Monocytes/100 WBC (Bld) 7 % 3 - 12 % [place] Platelet mean volume (Bld) [Entitic vol] 10.3 fL 8.1 - 13.5 fL [place] Platelets (Bld) [#/Vol] 365 10*3/uL [place] Platelets (Bld) [#/Vol] NOT REPORTED [place] RBC (Bld) [#/Vol] 4.43 10*6/uL 3.95 - 5.1 1 m/uL [place] RBC morphology finding Nom (Bld) NOT REPORTED [place] Segmented neutrophils/100 WBC (Bld) 48 % 36 - 65 % [place] Segs Absolute 3.98 [place] WBC (Bld) [#/Vol] 0.0 10*3/uL 0.0 per 10 0 WBC [place] WBC (Bld) [#/Vol] 8.1 10*3/uL [place] WBC Morphology NOT REPORTED [place] Ferritinon 05-22-2020 Ferritin [Mass/Vol] 157 ug/L High 13 - 150 ug/L [place] Interpretation and review of laboratory results Abnormal [place] XR CHEST PORTABLEon 04-04-20 No acute cardiopulmonary abnormality. [place] EXAMINATION: ONE XRAY VIEW OF THE CHEST 04/04/2020 9:31 pm COMPARISON: 06/23/2019 HISTORY: ORDERING SYSTEM PROVIDED HISTORY: cough TECHNOLOGIST PROVIDED HISTORY: cough FINDINGS: The lungs are clear. The cardiac and mediastinal contours are normal. There is no pleural effusion or pneumothorax. No acute osseous abnormality is identified. [place] Mian, Mhpn Incoming Radiant Results From [employer] - 04/04/2020 9:46 PM EST EXAMINATION: ONE XRAY VIEW OF THE CHEST 04/04/2020 9:31 pm COMPARISON: 06/23/2019 HISTORY: ORDERING SYSTEM PROVIDED HISTORY: cough TECHNOLOGIST PROVIDED HISTORY: cough FINDINGS: The lungs are clear. The cardiac and mediastinal contours are normal. There is no pleural effusion or pneumothorax. No acute osseous abnormality is identified. IMPRESSION: No acute cardiopulmonary abnormality. [place] Basic Metabolic Panelon Anion gap [Moles/Vol] 13 mmol/L 9 - 17 mmol/L [place] Bun/Cre Ratio 20 [place] Calcium [Mass/Vol] 9.3 mg/dL 8.6 - 10. 4 mg/dL [place] Chloride [Moles/Vol] 103 mmol/L 98 - 10 7 mmol/L [place] CO2 [Moles/Vol] 21 mmol/L 20 - 31 mmol/L [place] Creatinine [Mass/Vol] 0.59 mg/dL 0.5 - 0.9 mg/dL [place] GFR >60 >60 mL/min [place] GFR Non- >60 >60 mL/min [place] Glucose [Mass/Vol] 105 mg/dL High 70 - 99 mg/dL [place] Interpretation and review of laboratory results Abnormal [place] Potassium [Moles/Vol] 4.0 mmol/L 3.7 - 5.3 mmol/L [place] Sodium [Moles/Vol] 137 mmol/L 135 - 144 mmol/L [place] Urea nitrogen [Mass/Vol] 12 mg/dL 6 - 20 mg/dL [place] CBC Auto Differentialon Basophils (Bld) [#/Vol] 0.07 10*3/uL [place] Basophils/100 WBC (Bld) 1 % 0 - 2 % [place] Differential Type NOT REPORTED [place] Eosinophils (Bld) [#/Vol] 0.35 10*3/uL [place] Eosinophils/100 WBC (Bld) 4 % 1 - 4 % [place] Erythrocyte distribution width (RBC) [Ratio] 13.7 % 11.8 - 14.4 % [place] Hematocrit (Bld) [Volume fraction] 42.7 % 36.3 - 47.1 % [place] Hemoglobin (Bld) [Mass/Vol] 13.8 g/dL 11.9 - 15.1 g/dL [place] Immature granulocytes (Bld) [#/Vol] 10*3/uL [place] Immature granulocytes (Bld) [#/Vol] 0 % 0 [place] Lymphocytes (Bld) [#/Vol] 2.35 10*3/uL [place] Lymphocytes/100 WBC (Bld) 27 % 24 - 43 % [place] MCH (RBC) [Entitic mass] 28.9 pg 25.2 - 33.5 pg [place] MCHC (RBC) [Mass/Vol] 32.3 g/dL 28.4 - 34.8 g/dL [place] MCV (RBC) [Entitic vol] 89.3 fL 82.6 - 102.9 fL [place] Monocytes (Bld) [#/Vol] 0.49 10*3/uL [place] Monocytes/100 WBC (Bld) 6 % 3 - 12 % [place] Platelet mean volume (Bld) [Entitic vol] 10.8 fL 8.1 - 13.5 fL [place] Platelets (Bld) [#/Vol] NOT REPORTED [place] Platelets (Bld) [#/Vol] 348 10*3/uL [place] RBC (Bld) [#/Vol] 4.78 10*6/uL 3.95 - 5.1 1 m/uL [place] RBC morphology finding Nom (Bld) NOT REPORTED [place] Segmented neutrophils/100 WBC (Bld) 62 % 36 - 65 % [place] Segs Absolute 5.35 Ana Maria Hernández [facility] [place] WBC (Bld) [#/Vol] 0.0 10*3/uL 0.0 per 10 0 [facility]BC [facility] (Bld[facility] [#/Vol] 8.6 10*3/uL [facility] WBC Morphology NOT REPORTED [place] Maria [place], [place] CT ABDOMEN PELVIS W IV CONTR Mazin 11-13-2019 Mian, Mhpn Incoming Radiant Results From [employer] - 11/13/2019 9:48 AM EDT EXAMINATION: CT OF THE ABDOMEN AND PELVIS WITH CONTRAST 11/13/2019 9:16 am TECHNIQUE: CT of the abdomen and pelvis was performed with the administration of intravenous contrast. Multiplanar reformatted images are provided for review. Dose modulation, iterative reconstruction, and/or weight based adjustment of the mA/kV was utilized to reduce the radiation dose to as low as reasonably achievable. COMPARISON: 03/19/2018 HISTORY: ORDERING SYSTEM PROVIDED HISTORY: abdominal pain TECHNOLOGIST PROVIDED HISTORY: Give IV and PO contrast abdominal pain Possible bowel obstruction FINDINGS: Lower Chest: Lung bases are clear without pulmonary nodules, masses, effusions, or foci of airspace disease. The base of the heart is normal in size without pericardial fluid collection. Organs: The liver, pancreas, and spleen are grossly within normal limits. No focal hepatic mass lesions. No intrahepatic or extrahepatic biliary ductal dilatation. Status post cholecystectomy. GI/Bowel: Diastasis recti containing loops of small bowel. No bowel obstruction or inflammation. No free intraperitoneal air or fluid. Small bowel loops are normal in caliber. No hiatal hernia identified. Pelvis: No evidence for free fluid. Peritoneum/Retroperi toneum: The adrenal glands are normal in size and configuration bilaterally. Kidneys perfuse and excrete in a symmetric fashion and ureters are not obstructed. Urinary bladder is unremarkable. Bones/Soft Tissues: Multiple left-sided healed rib fractures. Vasculature: The abdominal aorta is normal in caliber. No discrete and aneurysm or dissection. No lymphadenopathy within the abdomen or pelvis. IMPRESSION: No evidence for acute intra-abdominal or intrapelvic pathology. No bowel obstruction or inflammation. No free intraperitoneal air or fluid. No evidence for urinary obstruction. RECOMMENDATIONS: Insert apart [place] EXAMINATION: CT OF THE ABDOMEN AND PELVIS WITH CONTRAST 11/13/2019 9:16 am TECHNIQUE: CT of the abdomen and pelvis was performed with the administration of intravenous contrast. Multiplanar reformatted images are provided for review. Dose modulation, iterative reconstruction, and/or weight based adjustment of the mA/kV was utilized to reduce the radiation dose to as low as reasonably achievable. COMPARISON: 03/19/2018 HISTORY: ORDERING SYSTEM PROVIDED HISTORY: abdominal pain TECHNOLOGIST PROVIDED HISTORY: Give IV and PO contrast abdominal pain Possible bowel obstruction FINDINGS: Lower Chest: Lung bases are clear without pulmonary nodules, masses, effusions, or foci of airspace disease. The base of the heart is normal in size without pericardial fluid collection. Organs: The liver, pancreas, and spleen are grossly within normal limits. No focal hepatic mass lesions. No intrahepatic or extrahepatic biliary ductal dilatation. Status post cholecystectomy. GI/Bowel: Diastasis recti containing loops of small bowel. No bowel obstruction or inflammation. No free intraperitoneal air or fluid. Small bowel loops are normal in caliber. No hiatal hernia identified. Pelvis: No evidence for free fluid. Peritoneum/Retroperi toneum: The adrenal glands are normal in size and configuration bilaterally. Kidneys perfuse and excrete in a symmetric fashion and ureters are not obstructed. Urinary bladder is unremarkable. Bones/Soft Tissues: Multiple left-sided healed rib fractures. Vasculature: The abdominal aorta is normal in caliber. No discrete and aneurysm or dissection. No lymphadenopathy within the abdomen or pelvis. [place] No evidence for acute intra-abdominal or intrapelvic pathology. No bowel obstruction or inflammation. No free intraperitoneal air or fluid. No evidence for urinary obstruction. RECOMMENDATIONS: Insert apart [place], [place] Lactate, Sepsison 11-13-2019 Lactic Acid, Sepsis 0.8 mmol/L 0.5 - 1. 9 mmol/L [place] Lactic Acid, Sepsis, Whole Blood NOT REPORTED 0.5 - 1.9 mmol/L [place] Lipaseon 11-13-2019 Lipase [Catalytic activity/Vol] 15 U/L 13 - 60 U/L [place] Metabolic Panelon 11-13-2019 GFR/1.73 sq M predicted among non-blacks MDRD (S/P/Bld) [Vol rate/Area] [place] Comment on above: Average GFR for 40-4 9 years old: 99 mL/min/1.73sq m Chronic Kidney Disease: <60 mL/min/1.73sq m Kidney failure: <15 mL/min/1.73sq m eGFR calculated using average adult body mass. Additional eGFR calculator available at: http://www.Archive/multiple_crcl_2012.htm Stage 1: Some kidney damage normal GFR Stage 2: Mild kidney damage GFR 60-89 Stage 3: Moderate kidney damage GFR 30-59 Stage 4: Severe kidney damage GFR 15-29 Stage 5: Severe kidney damage GFR <15 ESRD - chronic treatment by dialysis or transplant , Urineon 0 Beta HCG ( test) Ql (U) Negative NEGATIVE [place] Comment on above: Specimens with hCG l evels near the threshold of the test (25 mIU/mL) may give a negative or indeterminate result. In such cases, another test should be performed with a new specimen in 48-72 hours. If early is suspected clinically in this setting, correlation with quantitative serum b-hCG level is suggested. [facility] has confirmed the use of plasma for this test. This has not been cleared or approved by the U.S. Food and Drug Administration. The FDA has determined that such clearance is not necessary. Urinalysis with microscopico n 11-03-2019 Amorphous, UA NOT REPORTED None [place], [place] Bacteria, UA 1+ Abnormal None [place], [place] Bilirubin Urine Negative NEGATIVE [place] Casts UA NOT REPORTED /LPF [place] Color, UA YELLOW YELLOW [place] Crystals, UA NOT REPORTED None /HPF [place] Epithelial Cells UA 5 TO 10 [place] Glucose, Ur Negative NEGATIVE [place] Interpretation and review of laboratory results Abnormal [place] Ketones Ql (U) Negative NEGATIVE [place] Leukocyte esterase Test strip Ql (U) Negative NEGATIVE [place] Mucus, UA TRACE Abnormal None [place] Nitrite, Urine Negative NEGATIVE [place] Other Observations UA NOT REPORTED NOT REQ. M [place] pH, UA 6.0 [place] Protein (U) [Mass/Vol] Negative NEGATIVE [place] RBC (U) [#/Vol] None [facility] Armen [place] Renal Epithelial, UA NOT REPORTED 0 /HPF [place] Specific [place], UA 1.020 [place], [place] Trichomonas, UA NOT REPORTED None [place], [place] Turbidity UA SLIGHTLY CLOUDY Abnormal CLEAR [place], [place] Urinalysis Comments NOT REPORTED [place], [place] Urine Hgb Negative NEGATIVE [place] Urobilinogen, Urine Normal Normal [place] WBC, UA 2 TO 5 [place] Yeast, UA NOT REPORTED None [place], [place] XR LUMBAR SPINE (2-3 VIEWS)o n 11-03-2019 1. No radiographic evidence of acute lumbar spine trauma. 2. Moderate L5/S1 spondylosis. [place], [place] Mian, [facility] Incoming Radiant Results From [employer] - 11/03/2019 1:34 AM EDT EXAMINATION: THREE XRAY VIEWS OF THE LUMBAR SPINE 11/03/2019 1:27 am COMPARISON: None. HISTORY: ORDERING SYSTEM PROVIDED HISTORY: Fall 2 days ago. Back pain TECHNOLOGIST PROVIDED HISTORY: Fall 2 days ago. Back pain FINDINGS: The lumbar spine demonstrates normal lordosis and alignment. Vertebral body heights are normal. No evidence of acute fracture, dislocation or subluxation is identified. L5/S1 moderate disc height loss is present. Facet joints are unremarkable. Bone mineralization is within normal limits. Paravertebral soft tissues are unremarkable. IMPRESSION: 1. No radiographic evidence of acute lumbar spine trauma. 2. Moderate L5/S1 spondylosis. [place] EXAMINATION: THREE XRAY VIEWS OF THE LUMBAR SPINE 11/03/2019 1:27 am COMPARISON: None. HISTORY: ORDERING SYSTEM PROVIDED HISTORY: Fall 2 days ago. Back pain TECHNOLOGIST PROVIDED HISTORY: Fall 2 days ago. Back pain FINDINGS: The lumbar spine demonstrates normal lordosis and alignment. Vertebral body heights are normal. No evidence of acute fracture, dislocation or subluxation is identified. L5/S1 moderate disc height loss is present. Facet joints are unremarkable. Bone mineralization is within normal limits. Paravertebral soft tissues are unremarkable. [place] B12/Folate Panelon 0 Cobalamin (Vitamin B12) [Mass/Vol] 215 pg/mL Low 232-1245 [facility] Comment on above: Performed By: #### B 12FOL, FERI, VD25 #### [facility] [address] [place] [id number] Explosive Ordnance Specialist: Higinio Bullock MD Folic Acid 12.7 ng/mL Normal >4.8 [facility] Comment on above: Performed By: #### B 12FOL, FERI, VD25 #### [facility] [address] [place] [id number] Explosive Ordnance Specialist: Higinio Bullock MD Ferritinon 07-19-2019 Ferritin [Mass/Vol] 14 ug/L Normal 13-150 [facility] Comment on above: Performed By: #### Giovanna 12FOL, FERI, VD25 #### [facility] [address] [place] [id number] Explosive Ordnance Specialist: Higinio Bullock MD Vitamin D 25 OHon 07-19-2019 Vitamin D 25 [place] 6.5 ng/mL Low 30.0-100.0 [facility] Comment on above: Result Comment: Reference Range: Vitamin D status Range Deficiency <20 ng/mL Mild Deficiency 20-30 ng/mL Sufficiency 30-100 ng/mL Toxicity >100 ng/mL Performed By: #### B 12FOL, FERI, VD25 #### [facility] [address] [place] [id number] Explosive Ordnance Specialist: Higinio Bullock MD Ferritinon 07-18-2019 Ferritin [Mass/Vol] 14 ug/L 13 - 150 ug/L [place] Vitamin B12 & Folateon 07-17 Cobalamin (Vitamin B12) [Mass/Vol] 215 pg/mL Low 232 - 1245 pg/mL [place] Folate 12.7 ng/mL >4.8 [place] Interpretation and review of laboratory results Abnormal [place] Vitamin D 25 Hydroxyon 07-17 Interpretation and review of laboratory results Abnormal [place] Vit D, 25-Hydroxy 6.5 ng/mL Low 30 - 100 ng/mL [place] Comment on above: Reference Range: Vitamin D status Range Deficiency <20 ng/mL Mild Deficiency 20-30 ng/mL Sufficiency 30-100 ng/mL Toxicity >100 ng/mL Brain Natriuretic Peptideon 06-23-2019 Natriuretic peptide B (Bld) [Mass/Vol] Pro-BNP Reference Range: [facility] Phone: Comment on above: Rule Out: <300 [place]: Age <50 300-450 Age 50-75 300-900 Age >75 300-1800 Usually represents mild to moderate HF but other cardiopulmonary causes cannot be ruled out. Rule In: Age <50 >450 Age 50-75 >900 Age >75 >1800 Natriuretic peptide B (Bld) [Mass/Vol] pg/mL <300 pg/mL [facility] Phone: Comment on above: Pro-BNP results pawan ot be compared to BNP results. CBC Auto Differentialon Basophils (Bld) [#/Vol] 0.05 10*3/uL [facility] Phone: Basophils/100 WBC (Bld) 1 % 0 - 2 % [facility] Phone: Differential Type NOT REPORTED [facility] Phone: Eosinophils (Bld) [#/Vol] 0.28 10*3/uL [facility] Phone: Eosinophils/100 WBC (Bld) 3 % 1 - 4 % [facility] Phone: Erythrocyte distribution width (RBC) [Ratio] 14.6 % High 11.8 - 14.4 % [facility] Phone: Hematocrit (Bld) [Volume fraction] 38.8 % 36.3 - 47.1 % [facility] Phone: Hemoglobin (Bld) [Mass/Vol] 12.0 g/dL 11.9 - 15.1 g/dL [facility] Phone: Immature granulocytes (Bld) [#/Vol] 0.03 10*3/uL [facility] Phone: Immature granulocytes (Bld) [#/Vol] 0 % 0 [facility] Phone: Interpretation and review of laboratory results Abnormal [facility] Phone: Lymphocytes (Bld) [#/Vol] 2.83 10*3/uL [facility] Phone: Lymphocytes/100 WBC (Bld) 35 % 24 - 43 % [facility] Phone: MCH (RBC) [Entitic mass] 26.3 pg 25.2 - 33.5 pg [facility] Phone: MCHC (RBC) [Mass/Vol] 30.9 g/dL 28.4 - 34.8 g/dL [facility] Phone: MCV (RBC) [Entitic vol] 85.1 fL 82.6 - 102.9 fL [facility] Phone: Monocytes (Bld) [#/Vol] 0.56 10*3/uL [facility] Phone: Monocytes/100 WBC (Bld) 7 % 3 - 12 % [facility] Phone: Platelet mean volume (Bld) [Entitic vol] 11.2 fL 8.1 - 13.5 fL [facility] Phone: Platelets (Bld) [#/Vol] NOT REPORTED [facility] Phone: Platelets (Bld) [#/Vol] 360 10*3/uL [facility] Phone: RBC (Bld) [#/Vol] 4.56 10*6/uL 3.95 - 5.1 1 m/uL [employer] Work Phone: RBC morphology finding Nom (Bld) NOT REPORTED [employer] Work Phone: Segmented neutrophils/100 WBC (Bld) 54 % 36 - 65 % [facility] Phone: Segs Absolute 4.38 [place] [facility] [employer] Work Phone: WBC (Bld) [#/Vol] 0.0 10*3/uL 0.0 per 10 0 WBC [facility] Phone: WBC (Bld) [#/Vol] 8.1 10*3/uL [facility] Phone: WBC Morphology NOT REPORTED [employer] [facility] Work Phone: Comprehensive Metabolic Pane l w/ Reflex to MGon 06-23-2019 Albumin [Mass/Vol] 4.5 g/dL 3.5 - 5.2 g/dL [facility] Phone: Albumin/Globulin [Mass ratio] 1.2 {ratio} [facility] Phone: ALP [Catalytic activity/Vol] 70 U/L 35 - 104 U/L [facility] Phone: ALT [Catalytic activity/Vol] 7 U/L 5 - 33 U/L [facility] Phone: Anion gap [Moles/Vol] 12 mmol/L 9 - 17 mmol/L [facility] Phone: AST [Catalytic activity/Vol] 32 U/L High <32 [facility] Phone: Bilirubin Ql (U) 0.30 mg/dL 0.3 - 1.2 mg/dL [facility] Phone: Bun/Cre Ratio 26 High [employer] Work Phone: Calcium [Mass/Vol] 9.0 mg/dL 8.6 - 10. 4 mg/dL [facility] Phone: Chloride [Moles/Vol] 100 mmol/L 98 - 10 7 mmol/L [facility] Phone: CO2 [Moles/Vol] 22 mmol/L 20 - 31 mmol/L [facility] Phone: Creatinine [Mass/Vol] 0.58 mg/dL 0.5 - 0.9 mg/dL [employer] Work Phone: GFR >60 >60 mL/min [employer] Work Phone: GFR Non- >60 >60 mL/min [facility] Phone: Glucose [Mass/Vol] 112 mg/dL High 70 - 99 mg/dL [facility] Phone: Interpretation and review of laboratory results Abnormal [employer] Work Phone: Potassium [Moles/Vol] 5.7 mmol/L High 3.7 - 5.3 mmol/L [facility] Phone: Protein [Mass/Vol] 8.3 g/dL 6.4 - 8.3 g/dL [facility] Phone: Sodium [Moles/Vol] 134 mmol/L Low 135 - 144 mmol/L [facility] Phone: Urea nitrogen [Mass/Vol] 15 mg/dL 6 - 20 mg/dL [employer] Work Phone: D-Dimer, Quantitativeon D-Dimer, Quant 0.39 [employer] Work Phone: Comment on above: Elevated levels of D dimer can be seen in any state of coagulation activation including DVT, PE, arterial thrombosis, DIC, inflamatory disease, trauma, malignancy, sepsis, infection, hematoma, liver disease, post surgical state, , atherosclerosis, old age. When combined with a low clinical probability, a D dimer value of <0.50 mg/L is considered negative for DVT and PE (negative predictive value of 98%). Lipaseon 06-23-2019 Lipase [Catalytic activity/Vol] 19 U/L 13 - 60 U/L [facility] Phone: Metabolic Panelon 06-23-2019 GFR/1.73 sq M predicted among non-blacks MDRD (S/P/Bld) [Vol rate/Area] [facility] Phone: Comment on above: Average GFR for 40-4 9 years old: 99 mL/min/1.73sq m Chronic Kidney Disease: <60 mL/min/1.73sq m Kidney failure: <15 mL/min/1.73sq m eGFR calculated using average adult body mass. Additional eGFR calculator available at: http://www.Archive/multiple_crcl_2012.htm Stage 1: Some kidney damage normal GFR Stage 2: Mild kidney damage GFR 60-89 Stage 3: Moderate kidney damage GFR 30-59 Stage 4: Severe kidney damage GFR 15-29 Stage 5: Severe kidney damage GFR <15 ESRD - chronic treatment by dialysis or transplant Troponinon 06-23-2019 Troponin I.cardiac [Mass/Vol] NOT REPORTED [facility] Phone: Troponin T.cardiac [Mass/Vol] NOT REPORTED <0.03 ng/mL [facility] Phone: Troponin, High Sensitivity <6 0 - 14 ng/L [facility] Phone: Comment on above: High Sensitivity Troponin values cannot be compared with other Troponin methodologies. Patients with high levels of Biotin oral intake (i.e >5mg/day) may have falsely decreased Troponin levels. Samples collected within 8 hours of biotin intake may require additional information for diagnosis. Troponin I.cardiac [Mass/Vol] NOT REPORTED [facility] Phone: Troponin T.cardiac [Mass/Vol] NOT REPORTED <0.03 ng/mL [facility] Phone: Troponin, High Sensitivity <6 0 - 14 ng/L [facility] Phone: Comment on above: High Sensitivity Troponin values cannot be compared with other Troponin methodologies. Patients with high levels of Biotin oral intake (i.e >5mg/day) may have falsely decreased Troponin levels. Samples collected within 8 hours of biotin intake may require additional information for diagnosis. XR CHEST PORTABLEon 06-23-19 Mian, pn Incoming Radiant Results From [employer] - 06/23/2019 8:56 PM EST EXAMINATION: ONE XRAY VIEW OF THE CHEST 06/23/2019 8:47 pm COMPARISON: 01/30/2017 HISTORY: ORDERING SYSTEM PROVIDED HISTORY: DEMETRIUS GODWIN TECHNOLOGIST PROVIDED HISTORY: CPDEMETRIUS Initial exam FINDINGS: The lungs are without acute focal process. There is no effusion or pneumothorax. The cardiomediastinal silhouette is without acute process. The osseous structures are without acute process. IMPRESSION: No acute process. [facility] Phone: EXAMINATION: ONE XRAY VIEW OF THE CHEST 06/23/2019 8:47 pm COMPARISON: 01/30/2017 HISTORY: ORDERING SYSTEM PROVIDED HISTORY: DEMETRIUS GODWIN TECHNOLOGIST PROVIDED HISTORY: DEMETRIUS GODWIN Initial exam FINDINGS: The lungs are without acute focal process. There is no effusion or pneumothorax. The cardiomediastinal silhouette is without acute process. The osseous structures are without acute process. [employer] Work Phone: No acute process. [facility] Work Phone: CBC Auto Differentialon 10-0 Basophils (Bld) [#/Vol] 0.07 10*3/uL [place] Basophils/100 WBC (Bld) 1 % 0 - 2 % [place] Differential Type NOT REPORTED [place] Eosinophils (Bld) [#/Vol] 0.38 10*3/uL [place] Eosinophils/100 WBC (Bld) 5 % High 1 - 4 % [place] Erythrocyte distribution width (RBC) [Ratio] 13.6 % 11.8 - 14.4 % [place] Hematocrit (Bld) [Volume fraction] 36.5 % 36.3 - 47.1 % [place] Hemoglobin (Bld) [Mass/Vol] 11.5 g/dL Low 11.9 - 15.1 g/dL [place] Immature granulocytes (Bld) [#/Vol] 10*3/uL [place] Immature granulocytes (Bld) [#/Vol] 0 % 0 [place] Interpretation and review of laboratory results Abnormal [place] Lymphocytes (Bld) [#/Vol] 2.86 10*3/uL [place] Lymphocytes/100 WBC (Bld) 40 % 24 - 43 % [place] MCH (RBC) [Entitic mass] 27.3 pg 25.2 - 33.5 pg [place] MCHC (RBC) [Mass/Vol] 31.5 g/dL 28.4 - 34.8 g/dL [place] MCV (RBC) [Entitic vol] 86.7 fL 82.6 - 102.9 fL [place] Monocytes (Bld) [#/Vol] 0.69 10*3/uL [place] Monocytes/100 WBC (Bld) 10 % 3 - 12 % [place] Platelet mean volume (Bld) [Entitic vol] 11.3 fL 8.1 - 13.5 fL [place] Platelets (Bld) [#/Vol] 347 10*3/uL [place] Platelets (Bld) [#/Vol] NOT REPORTED [place] RBC (Bld) [#/Vol] 4.21 10*6/uL 3.95 - 5.1 1 m/uL [place] RBC morphology finding Nom (Bld) NOT REPORTED [place] Segmented neutrophils/100 WBC (Bld) 44 % 36 - 65 % [place] Segs Absolute 3.08 [place] WBC (Bld) [#/Vol] 0.0 10*3/uL 0.0 per 10 0 WBC [place] WBC (Bld) [#/Vol] 7.1 10*3/uL [place] WBC Morphology NOT REPORTED [place] Comprehensive Metabolic Pane lea 02-20-2019 Albumin [Mass/Vol] 3.9 g/dL 3.5 - 5.2 g/dL [place] Albumin/Globulin [Mass ratio] 1.1 {ratio} [place] ALP [Catalytic activity/Vol] 68 U/L 35 - 104 U/L [place] ALT [Catalytic activity/Vol] 6 U/L 5 - 33 U/L [place] Anion gap [Moles/Vol] 13 mmol/L 9 - 17 mmol/L [place] AST [Catalytic activity/Vol] 13 U/L <32 [place] Bilirubin Ql (U) 0.31 mg/dL 0.3 - 1.2 mg/dL [place] Bun/Cre Ratio 15 [place] Calcium [Mass/Vol] 9.1 mg/dL 8.6 - 10. 4 mg/dL [place] Chloride [Moles/Vol] 104 mmol/L 98 - 10 7 mmol/L [place] CO2 [Moles/Vol] 22 mmol/L 20 - 31 mmol/L [place] Creatinine [Mass/Vol] 0.52 mg/dL 0.5 - 0.9 mg/dL [place] GFR >60 >60 mL/min [place] GFR Non- >60 >60 mL/min [place] Glucose [Mass/Vol] 90 mg/dL 70 - 99 mg/dL [place] Potassium [Moles/Vol] 3.8 mmol/L 3.7 - 5.3 mmol/L [place] Protein [Mass/Vol] 7.5 g/dL 6.4 - 8.3 g/dL [place] Sodium [Moles/Vol] 139 mmol/L 135 - 144 mmol/L [place] Urea nitrogen [Mass/Vol] 8 mg/dL 6 - 20 mg/dL [place] Ferritinon 02-20-2019 Ferritin [Mass/Vol] 15 ug/L 13 - 150 ug/L [place] Iron and TIBCon 02-20-2019 Iron [Mass/Vol] 50 ug/dL 37 - 145 ug/dL [place] Iron Saturation 13 % Low 20 - 55 % [facility] [place] TIBC 384 ug/dL 250 - 450 ug/dL [place] UIBC 334 ug/dL 112 - 347 ug/dL [place] Metabolic Panelon 02-20-2019 GFR/1.73 sq M predicted among non-blacks MDRD (S/P/Bld) [Vol rate/Area] [place] Comment on above: Average GFR for 40-4 9 years old: 99 mL/min/1.73sq m Chronic Kidney Disease: <60 mL/min/1.73sq m Kidney failure: <15 mL/min/1.73sq m eGFR calculated using average adult body mass. Additional eGFR calculator available at: http://www.Archive/multiple_crcl_2012.htm Stage 1: Some kidney damage normal GFR Stage 2: Mild kidney damage GFR 60-89 Stage 3: Moderate kidney damage GFR 30-59 Stage 4: Severe kidney damage GFR 15-29 Stage 5: Severe kidney damage GFR <15 ESRD - chronic treatment by dialysis or transplant Otheron 02-20-2019 Interpretation and review of laboratory results Abnormal [place] Vitamin B12 & Folateon 02-20 Cobalamin (Vitamin B12) [Mass/Vol] 224 pg/mL Low 232 - 1245 pg/mL [place] Folate 10.1 ng/mL >4.8 [place] Interpretation and review of laboratory results Abnormal [place] Vitamin D 25 hydroxyon 02-20 Vit D, 25-Hydroxy 7.3 ng/mL Low 30 - 100 ng/mL [place] Comment on above: Reference Range: Vitamin D status Range Deficiency <20 ng/mL Mild Deficiency 20-30 ng/mL Sufficiency 30-100 ng/mL Toxicity >100 ng/mL Strep Screen Group A Throato n 12-24-2018 S. pyogenes Ag IA Ql (Unsp spec) Rapid Strep A negative. A negative Rapid Group A Strep Screen result does not rule out the possibility of Group A Streptococci in the specimen. A Group A Strep DNA test is available upon request. [place] Special Requests NOT REPORTED [facility] [place] Specimen Description .THROAT [facility] [place], [place] Vital Signs Date Time Vital Sign Value Performing Clinician Ella dixon 02-22-2024 10:27-0400 Body height 162.6 cm Janell Ciballi PA-C Work Phone: [facility] [employer] [facility] 02-22-2024 10:27-0400 Body mass index (BMI) [Ratio] 54.72 kg/m2 Janell Ciballi PA-C Work Phone: [facility] [employer] [facility] 02-22-2024 10:27-0400 Body weight 144.61 kg Janell [facility]iballi PA-C [facility] 02-22-2024 10:27-0400 Diastolic blood pressure 74 mm[Hg] Janell Ciballi PA-C Work Phone: [facility] [employer] [facility] 02-22-2024 10:27-0400 Heart rate 73 /min Janell Ciballi PA-C Work Phone: [facility] [employer] [facility] 02-22-2024 10:27-0400 SaO2% (BldA) [Mass fraction] 96 % Paulinogan Ciballi PA-C Work Phone: [facility] [employer] [facility] 02-22-2024 10:27-0400 Systolic blood pressure 133 mm[Hg] Paulinogan Ciballi PA-C Work Phone: [facility] [employer] [facility] 02-01-2024 01:04-0400 Heart rate 75 /min Brianna Might GROUT MACHINE OPERATOR - SAND CONTROL WORKER Work Phone: [facility] 02-01-2024 01:04-0400 Respiratory rate 20 /min Brianna Might GROUT MACHINE OPERATOR - SAND CONTROL WORKER Work Phone: [facility] [employer] 02-01-2024 00:34-0400 SaO2% (BldA) [Mass fraction] 97 % Brianna Might GROUT MACHINE OPERATOR - SAND CONTROL WORKER Work Phone: [facility] 01-31-2024 22:59-0400 Diastolic blood pressure 102 mm[Hg] Brianna Might GROUT MACHINE OPERATOR - SAND CONTROL WORKER Work Phone: [employer] 01-31-2024 22:59-0400 Systolic blood pressure 137 mm[Hg] Brianna Might GROUT MACHINE OPERATOR - SAND CONTROL WORKER Work Phone: [facility] [employer] 01-31-2024 20:00-0400 Body height 162.6 cm Brianna Might GROUT MACHINE OPERATOR - SAND CONTROL WORKER Work Phone: [employer] 01-31-2024 20:00-0400 Body mass index (BMI) [Ratio] 53.21 kg/m2 Brianna Might GROUT MACHINE OPERATOR - SAND CONTROL WORKER Work Phone: [employer] 01-31-2024 20:00-0400 Body temperature 98.2 [degF] Brianna Might GROUT MACHINE OPERATOR - SAND CONTROL WORKER Work Phone: [facility] [employer] 01-31-2024 20:00-0400 Body weight 140.62 kg Brianna Might GROUT MACHINE OPERATOR - SAND CONTROL WORKER Work Phone: [facility] [employer] 01-23-2024 10:47-0400 Body height 162.6 cm Wayne Joseph DO Work Phone: [employer] 01-23-2024 10:47-0400 Body mass index (BMI) [Ratio] 55.85 kg/m2 Wayne Joseph DO Work Phone: [employer] 01-23-2024 10:47-0400 Body weight 147.6 kg Wayne Joseph DO Work Phone: [employer] 01-23-2024 10:47-0400 Diastolic blood pressure 61 mm[Hg] Wayne Joseph DO Work Phone: [employer] 01-23-2024 10:47-0400 Heart rate 69 /min Wayne Joseph DO Work Phone: [employer] 01-23-2024 10:47-0400 SaO2% (BldA) [Mass fraction] 98 % Wayne Joseph DO Work Phone: [employer] 01-23-2024 10:47-0400 Systolic blood pressure 115 mm[Hg] Wayne Joseph DO Work Phone: [employer] 06-27-2022 12:54-0500 Heart rate 76 /min Surinder Mirelse MD Work Phone: [facility] [employer] 06-27-2022 12:45-0500 Diastolic blood pressure 86 mm[Hg] Surinder Mireles MD Work Phone: [facility] [employer] 06-27-2022 12:45-0500 Systolic blood pressure 139 mm[Hg] Surinder Mireles MD Work Phone: [employer] 06-27-2022 12:33-0500 Body mass index (BMI) [Ratio] 56.3 kg/m2 Surinder Mireles MD Work Phone: [facility] [employer] 06-27-2022 12:33-0500 Body temperature 97.59 [degF] Surinder Mireles MD Work Phone: [facility] [employer] 06-27-2022 12:33-0500 Body weight 148.78 kg Surinder Mireles MD Work Phone: [facility] [employer] 06-27-2022 12:33-0500 Respiratory rate 16 /min Surinder Mireles MD Work Phone: [facility] [employer] 06-27-2022 12:33-0500 SaO2% (BldA) [Mass fraction] 98 % Surinder Mireles MD Work Phone: [facility] [employer] 02-12-2021 16:49-0400 Body mass index (BMI) [Ratio] 52.35 kg/m2 Ebony Bonds DO Work Phone: [employer] Work Phone: 02-12-2021 16:49-0400 Body temperature 98.01 [degF] Ebony Bonds DO Work Phone: [employer] Work Phone: 02-12-2021 16:49-0400 Body weight 138.35 kg Ebony Bonds DO Work Phone: [employer] Work Phone: 02-12-2021 16:49-0400 Diastolic blood pressure 75 mm[Hg] Ebony Bonds DO Work Phone: [employer] Work Phone: 02-12-2021 16:49-0400 Heart rate 95 /min Ebony Bonds DO Work Phone: [employer] Work Phone: 02-12-2021 16:49-0400 Respiratory rate 18 /min Ebony Bonds DO Work Phone: [employer] Work Phone: 02-12-2021 16:49-0400 SaO2% (BldA) [Mass fraction] 95 % Ebony Bonds [employer] Work Phone: [employer] Work Phone: 02-12-2021 16:49-0400 Systolic blood pressure 108 mm[Hg] Ebony Bonds DO Work Phone: [employer] Work Phone: 12-14-2020 16:01-0400 Body height 163.83 cm [employer] 12-14-2020 16:01-0400 Body mass index (BMI) [Ratio] 53.74 kg/m2 [employer] 12-14-2020 16:01-0400 Body surface area Derived from formula 2.56 m2 [employer] 12-14-2020 16:01-0400 Body weight 144.24 kg [employer] 12-14-2020 16:01-0400 Diastolic blood pressure 90 mm[Hg] [employer] 12-14-2020 16:01-0400 Heart rate 72 /min [employer] 12-14-2020 16:01-0400 Systolic blood pressure 128 mm[Hg] [employer] 12-07-2020 11:36-0400 Body height 163.83 cm [facility] 12-07-2020 11:36-0400 Body mass index (BMI) [Ratio] 54.16 kg/m2 [employer] 12-07-2020 11:36-0400 Body surface area Derived from formula 2.57 m2 [employer] 12-07-2020 11:36-0400 Body weight 145.38 kg [facility] 12-07-2020 11:36-0400 Diastolic blood pressure 90 mm[Hg] [facility] 12-07-2020 11:36-0400 Heart rate 80 /min [facility] 12-07-2020 11:36-0400 Systolic blood pressure 130 mm[Hg] [employer] [facility] 10-23-2020 18:51-0400 Body temperature 97.7 [degF] Pily Mariscal MD Work Phone: [employer] Work Phone: 10-23-2020 18:51-0400 Diastolic blood pressure 92 mm[Hg] Pily Mariscal MD Work Phone: [employer] Work Phone: 10-23-2020 18:51-0400 Heart rate 89 /min Pily Mariscal MD Work Phone: [employer] Work Phone: 10-23-2020 18:51-0400 Respiratory rate 16 /min Pily Mariscal MD Work Phone: [employer] Work Phone: 10-23-2020 18:51-0400 SaO2% (BldA) [Mass fraction] 100 % Pily Mariscal MD Work Phone: [employer] Work Phone: 10-23-2020 18:51-0400 Systolic blood pressure 136 mm[Hg] Pily Mariscal MD Work Phone: [employer] Work Phone: 06-28-2020 14:00-0500 BP Diastolic 48 mm[Hg] Pily Mariscal [employer] Work Phone: 06-28-2020 14:00-0500 BP Systolic 117 mm[Hg] Pily Mariscal [employer] Work Phone: 06-28-2020 14:00-0500 Pulse Oximetry 97 % Pily Mariscal [employer] Work Phone: 06-28-2020 13:43-0500 Body Temperature 97.11 [degF] Pily Mariscal [employer] Work Phone: 06-28-2020 13:43-0500 Pulse (Heart Rate) 66 /min Pily Mariscal [employer] Work Phone: 06-28-2020 13:43-0500 Respiratory Rate 16 /min Pily Mariscal [employer] Work Phone: 04-04-2020 22:30-0500 Body Temperature 97.2 [degF] Suraj [employer] [place] 04-04-2020 22:30-0500 BP Diastolic 105 mm[Hg] [facility] [place] , [place] 04-04-2020 22:30-0500 BP Systolic 146 mm[Hg] [facility] , [place] 04-04-2020 22:30-0500 Pulse (Heart Rate) 74 /min Suraj Barajas [facility], [place] 04-04-2020 22:05-0500 Pulse Oximetry 97 % Suraj Barajas [facility] , [place] 04-04-2020 21:31-0500 Respiratory Rate 18 /min [facility] [place] 11-13-2019 10:16-0400 BP Diastolic 74 mm[Hg] Louis Doyle [facility] [place], [place] 11-13-2019 10:16-0400 BP Systolic 135 mm[Hg] Louis Doyle [facility] [place], [place] 11-13-2019 10:16-0400 Pulse Oximetry 97 % Louis Doyle [facility], [place] 11-13-2019 07:15-0400 BMI (Body Mass Index) 53.04 kg/m2 [facility] [place] 11-13-2019 07:15-0400 Body Temperature 98.4 [degF] Louis Rodgers [facility] [place], [place] 11-13-2019 07:15-0400 Body weight 140.16 kg Louis Doyle [facility], [place] 11-13-2019 07:15-0400 Height 162.6 cm Louis Doyle [facility], [place] 11-13-2019 07:15-0400 Pulse (Heart Rate) 96 /min Louis Rodgers [facility] [place], [place] 11-13-2019 07:15-0400 Respiratory Rate 22 /min [facility] [place] 11-03-2019 00:24-0400 Body Temperature 97.9 [degF] [facility] [place] [place] 11-03-2019 00:24-0400 BP Diastolic 98 mm[Hg] [facility] [place] [facility] [place] 11-03-2019 00:24-0400 BP Systolic 130 mm[Hg] [facility] [place] [facility] [place] 11-03-2019 00:24-0400 Pulse (Heart Rate) 74 /min [facility] [place] [place] 11-03-2019 00:24-0400 Pulse Oximetry 97 % Emil Mays [facility] [place] , [place] 11-03-2019 00:24-0400 Respiratory Rate 18 /min [facility] [place] 08-09-2019 10:30-0400 BP Diastolic 72 mm[Hg] [facility] [place] , [place] 08-09-2019 10:30-0400 BP Systolic 123 mm[Hg] [facility] Schedule [facility] [place] , [place] 08-09-2019 10:30-0400 Pulse (Heart Rate) 72 /min [facility] Schedule [facility] [place], [place] 08-09-2019 09:38-0400 Body Temperature 97 [degF] [facility] [place] 08-09-2019 09:38-0400 Respiratory Rate 18 /min [facility] [employer] [place] 08-01-2019 11:00-0400 BP Diastolic 77 mm[Hg] [facility] [employer] , [place] 08-01-2019 11:00-0400 BP Systolic 136 mm[Hg] [facility] [place] [facility] [place] 08-01-2019 11:00-0400 Pulse (Heart Rate) 73 /min [facility] [place] [place] 08-01-2019 09:48-0400 Body Temperature 97.9 [degF] [facility] [place] 08-01-2019 09:48-0400 Respiratory Rate 18 /min [facility] [employer] 06-23-2019 23:17-0500 BP Diastolic 60 mm[Hg] Nickolas [employer] Work Phone: 06-23-2019 23:17-0500 BP Systolic 111 mm[Hg] Nickolas [employer] Work Phone: 06-23-2019 23:17-0500 Pulse (Heart Rate) 75 /min Nickolas [employer] Work Phone: 06-23-2019 23:17-0500 Respiratory Rate 17 /min Nickolas Chayo [employer] Work Phone: 06-23-2019 22:47-0500 Pulse Oximetry 98 % Nickolas Domingo [facility] [employer] Work Phone: 06-23-2019 20:34-0500 Body Temperature 97.7 [degF] Nickolas Domingo [facility] [employer] Work Phone: 04-07-2019 14:14-0500 BP Diastolic 90 mm[Hg] [facility] , [place] 04-07-2019 14:14-0500 BP Systolic 110 mm[Hg] Wayne [facility] , [place] 04-07-2019 14:14-0500 Pulse (Heart Rate) 75 /min Wayne [facility], [place] 04-07-2019 14:14-0500 Pulse Oximetry 99 % Wayne [facility] , [place] 04-07-2019 14:14-0500 Respiratory Rate 16 /min Wayne [facility], [place] 04-07-2019 14:11-0500 Body Temperature 97 [degF] Wayne [facility], [place] 02-02-2019 06:05-0400 BMI (Body Mass Index) 50.46 kg/m2 Chepe [facility], [place] 02-02-2019 06:05-0400 Body Temperature 98.01 [degF] Chepe [facility], [place] 02-02-2019 06:05-0400 Body weight 133.36 kg Chepe [facility] , [place] 02-02-2019 06:05-0400 BP Diastolic 84 mm[Hg] Chepe [facility] , [place] 02-02-2019 06:05-0400 BP Systolic 118 mm[Hg] Chepe [facility] , [place] 02-02-2019 06:05-0400 Pulse (Heart Rate) 91 /min Chepe [facility], [place] 02-02-2019 06:05-0400 Pulse Oximetry 99 % Chepe [facility] , [place] 02-02-2019 06:05-0400 Respiratory Rate 18 /min Chepe [facility], [place] 12-24-2018 20:23-0400 Body Temperature 97 [degF] Brianna [facility] [place] 12-24-2018 20:23-0400 BP Diastolic 94 mm[Hg] Brianna [facility] [place] , [place] 12-24-2018 20:23-0400 BP Systolic 133 mm[Hg] Brianna [facility] [place] , [place] 12-24-2018 20:23-0400 Pulse (Heart Rate) 94 /min Brianna [facility] [place], [place] 12-24-2018 20:23-0400 Pulse Oximetry 96 % Brianna Mitchell [facility] , [place] 12-24-2018 20:23-0400 Respiratory Rate 14 /min [facility] [place] Encounters Encounter Date Encounter Type Care Provider Facility Start: 02-22-2024 End: 02-22-2024 Office outpatient new 30 minutes Janell Baldwin PA-C Work Phone: [facility] Comment on above: Morbid obesity with body mass index of 50 or higher (Primary Dx); WALTER (obstructive sleep apnea); Type 2 diabetes mellitus without complication, unspecified whether exterminator helper termite insulin use Start: 02-22-2024 [facility]ulatory [facility] Start: 01-31-2024 End: 02-01-2024 Emergency department patient visit [facility] Comment on above: Abdominal pain, unsp ecified abdominal location (Primary Dx); Urinary tract infection without hematuria, site unspecified Start: 01-23-2024 End: 01-23-2024 Office outpatient new 30 minutes Wayne Joseph DO Work Phone: [facility] Comment on above: Morbid obesity with BMI of 50.0-59.9, adult (Primary Dx); Type 2 diabetes mellitus without complication, unspecified whether exterminator helper termite insulin use; Essential hypertension Start: 01-23-2024 ambulatory WAYNE JOSEPH [facility] Start: 11-21-2023 End: 11-23-2023 ambulatory JEN EHLMS [facility] Start: 09-28-2023 End: 09-28-2023 [facility] Start: 09-07-2023 End: 09-07-2023 [facility] Start: 08-22-2023 End: 08-22-2023 ambulatory [facility] Start: 07-28-2023 End: 07-28-2023 ambulatory FLORA RHODESTELLO [facility] Start: 07-24-2023 End: 07-24-2023 ambulatory [facility] Start: 07-24-2023 End: 07-24-2023 Subsequent hospital visit by physician Brianna Mitchell APRN - SAND CONTROL WORKER Work Phone: [facility] Laboratory Comment on above: Acute UTI Start: 06-15-2023 ambulatory Nithin Simpson acility:[facility] Start: 04-23-2023 End: 04-23-2023 Emergency department patient visit JOVAN ALBARRAN [facility] Start: 04-14-2023 End: 04-14-2023 [facility] Start: 03-10-2023 End: 03-10-2023 Emergency department patient visit JESSICAWALI CHAVES [facility] Start: 02-19-2023 End: 02-19-2023 Emergency department patient visit [facility] Start: 06-27-2022 End: 06-27-2022 Emergency department patient visit Surinder Mireles MD Work Phone: [facility] ED Comment on above: Acute nonintractable headache, unspecified headache type (Primary Dx) Start: 12-29-2021 End: 12-29-2021 Subsequent hospital visit by physician Brianna Mitchell APRN - MORGAN Work Phone: [facility] Laboratory Comment on above: B12 deficiency Start: 11-08-2021 End: 11-08-2021 Subsequent hospital visit by physician Sujit Aguirre PT [facility] Physical Therapy Comment on above: Arrived Start: 09-20-2021 End: 09-20-2021 Subsequent hospital visit by [facility] Start: 09-03-2021 End: 09-03-2021 Subsequent hospital visit by physician Anusha Torres PTA [facility] Physical Therapy Comment on above: Arrived Start: 08-06-2021 End: 08-06-2021 Subsequent hospital visit by physician Anusha Torres PTA [facility] Physical Therapy Comment on above: Canceled (Case yang llsuraj) Start: 07-16-2021 End: 07-16-2021 Subsequent hospital visit by physician Donna Damon PT [facility] Physical Therapy Comment on above: Arrived Start: 06-11-2021 End: 06-13-2021 Subsequent hospital visit by physician Brianna Mitchell APRN - SAND CONTROL WORKER Work Phone: [facility] Rad[facility] Start: 02-12-2021 End: 02-12-2021 Emergency department patient visit Ebony Bonds DO Work Phone: [facility] ED Comment on above: Diarrhea, unspecifie d type (Primary Dx); Nonintractable headache, unspecified chronicity pattern, unspecified headache type; Syncope and collapse Start: 01-14-2021 End: 01-14-[address] CRAIG BUSTILLO Facility: Start: 12-14-2020 Split Srvc Kaye G Osbo rne Other [facility] Start: 12-07-2020 Split Srvc Kaye G Osbo rne Other [facility] Start: 11-25-2020 End: 11-25-2020 Subsequent hospital visit by physician Brianna Mitchell APRN - SAND CONTROL WORKER Work Phone: [facility] Laboratory Comment on above: Polyneuropathy; Hypocalcemia Start: 11-06-2020 End: 11-06-2020 Subsequent hospital visit by physician Pj Siddiqui PT [facility] Physical Therapy Start: 10-30-2020 End: 10-30-2020 Subsequent hospital visit by physician Pj Siddiqui PT [facility] Physical Therapy Start: 10-23-2020 End: 10-23-2020 Emergency department patient visit Pily Mariscal MD Work Phone: [facility] ED Comment on above: Pain, dental (Primar y Dx); Insect bite of right upper arm, initial encounter Start: 09-22-2020 End: 09-22-2020 Subsequent hospital visit by physician Anusha Torres PTA [facility] Physical Therapy Comment on above: Arrived Start: 09-18-2020 End: 09-18-2020 Subsequent hospital visit by physician Anusha Torres PTA [facility] Physical Therapy Comment on above: Arrived Start: 09-14-2020 End: 09-14-2020 Subsequent hospital visit by physician [facility] Comment on above: Arrived Start: 09-04-2020 End: 09-04-2020 Subsequent hospital visit by physician Pj Siddiqui PT [facility] Physical Therapy Comment on above: Arrived Start: 06-28-2020 End: 06-28-2020 Emergency department patient visit Pily Mariscal Work Phone: [facility] ED Comment on above: Multiple contusions (Primary Dx); Fall, initial encounter Start: 05-22-2020 End: 05-22-2020 Subsequent hospital visit by physician Brianna SLOAN Laboratory Comment on above: Iron deficiency anem ia, unspecified iron deficiency anemia type; Intestinal malabsorption, unspecified type; H/O gastric bypass; B12 deficiency Start: 04-04-2020 End: 04-04-2020 Emergency department patient visit Suraj Barajas Work Phone: [facility] ED Comment on above: Viral illness (Prima ry Dx) Start: 11-13-2019 End: 11-13-2019 Emergency department patient visit Louis Ferrara Vivek [facility] ED Comment on above: Non-surgical abdomin al pain (Primary Dx) Start: 11-03-2019 End: 11-03-2019 Emergency department patient visit Emil Mays Work Phone: [facility] ED Comment on above: Back strain, initial encounter (Primary Dx); Skin yeast infection; Concern about STD in female without diagnosis Start: 08-09-2019 End: 08-09-2019 Subsequent hospital visit by physician Abdullahi [facility] Comment on above: Intestinal malabsorp tion, unspecified type (Primary Dx); Iron deficiency anemia, unspecified iron deficiency anemia type Start: 08-01-2019 End: 08-01-2019 Subsequent hospital visit by physician Abdullahi [facility] Comment on above: Intestinal malabsorp tion, unspecified type (Primary Dx); Iron deficiency anemia, unspecified iron deficiency anemia type Start: 07-18-2019 End: 07-19-2019 Patient encounter procedure BRENDA RIOS [facility] Start: 07-18-2019 End: 07-18-2019 Subsequent hospital visit by physician Brianna JONES [place] [facility] DO[facility] Start: 06-23-2019 End: 06-23-2019 Emergency department patient visit Nickolas Domingo Work Phone: [facility] ED Comment on above: Nonspecific chest pa in (Primary Dx) Start: 04-07-2019 End: 04-07-2019 Emergency department patient visit Wayne Ozuna Work Phone: [facility] ED Comment on above: Acute parotitis (Amparo erlin Dx); Acute upper respiratory infection Start: 02-20-2019 End: 02-20-2019 Subsequent hospital visit by physician Brianna SLOAN Laboratory Comment on above: Iron deficiency anem ia, unspecified iron deficiency anemia type; Intestinal malabsorption, unspecified type; H/O gastric bypass; B12 deficiency Start: 02-19-2019 End: 02-19-2019 Subsequent hospital visit by physician Abdullahi Sleep Rm 1 [facility] Sleep Center Comment on above: WALTER (obstructive sle ep apnea) Start: 02-02-2019 End: 02-02-2019 Emergency department patient visit Chepe Stafford Work Phone: [facility] ED Comment on above: Acute pharyngitis, u nspecified etiology (Primary Dx); Acute tonsillitis, unspecified etiology Start: 12-24-2018 End: 12-24-2018 Emergency department patient visit [facility] ED Comment on above: Acute pharyngitis, u nspecified etiology (Primary Dx) Procedures Date Procedure Procedure Detail Performing Clinician Start: 01-31-2024 Ct abdomen & pelvis w/contrast material Stacey Kruse PA-C Work Phone: Start: 01-31-2024 Urinalysis microscopic only Stacey Kruse PA-C Work Phone: Start: 01-31-2024 Urnls dip stick/tabl et rgnt auto w/o microscopy Stacey Kruse PA-C Work Phone: Start: 01-31-2024 Comprehensive metabo lic panel Stacey Kruse PA-C Work Phone: Start: 01-31-2024 Ecg routine ecg w/le ast 12 lds w/i&r Stacey Kruse PA-C Work Phone: Start: 06-27-2022 Radiologic exam ches t single view Surinder Mireles MD Work Phone: Start: 06-27-2022 Ct head/brain w/o & w/contrast material Surinder Mireles MD Work Phone: Start: 06-27-2022 Comprehensive metabo lic panel Surinder Mireles MD Work Phone: Start: 06-27-2022 Ecg routine ecg w/le ast 12 lds w/i&r Surinder Mireles MD Work Phone: Start: 12-29-2021 End: 12-29-2021 Cyanocobalamin vitamin b-12 Flora awad MD Work Phone: Start: 02-12-2021 Ecg routine ecg w/le ast 12 lds w/i&r Ebony Bonds DO Work Phone: Start: 02-12-2021 Radex humerus minimu m 2 views Ebony Bonds DO Work Phone: Start: 02-12-2021 Ecg routine ecg w/le ast 12 lds w/i&r Ebony Bonds DO Work Phone: Start: 12-14-2020 Nerve conduction shabnam dies 9-10 studies Kaye Kruse Start: 12-07-2020 Nerve conduction shabnam dies 7-8 studies Kaye Kruse Start: 11-25-2020 End: 11-25-2020 Basic metabolic panel calcium total Maynorjoseph Rivera GROUT MACHINE OPERATOR - SAND CONTROL WORKER Work Phone: Start: 11-25-2020 VITAMIN B12 & FOLATE Sh awjoseph M Deats GROUT MACHINE OPERATOR - SAND CONTROL WORKER Work Phone: Start: 06-28-2020 Radiologic examinati on pelvis 1/2 views Pily Mariscal Work Phone: Start: 06-28-2020 End: 02-14-2021 Radiologic examination knee 1/2 views Pily Mariscal Work Phone: Start: 06-28-2020 Radex hand minimum 3 views Pily Mariscal Work Phone: Start: 06-28-2020 Radex ribs uni w/pos teroant ch minimum 3 views Pily Mariscal Work Phone: Start: 05-22-2020 Assay of ferritin Dulce GomezLaceywilfredo Work Phone: Start: 05-22-2020 Blood count complete auto&auto difrntl wbc Brenda Rios Work Phone: Start: 04-04-2020 Radiologic exam ches t single view Suraj Barajas Work Phone: Start: 11-13-2019 Ct abdomen & pelvis w/contrast material Louis Doyle Start: 11-13-2019 Assay of lipase Louis Doyle Start: 11-13-2019 Basic metabolic pane l calcium total Louis Doyle Start: 11-13-2019 Blood count complete auto&auto difrntl wbc Louis Doyle Start: 11-13-2019 LACTATE, SEPSIS Louis Doyle Start: 11-03-2019 Radex spine lumbosac ral 2/3 views Emil Caballeroin Work Phone: Start: 11-03-2019 Urine test visual color cmprsn meths [employer] Work Phone: Start: 11-03-2019 Urnls dip stick/tabl et reagent auto microscopy [employer] Work Phone: Start: 07-18-2019 25 hydroxy includes fractions if performed MIRIAMArianna RHODESLauroALEXANDRA Start: 07-18-2019 Assay of ferritin DULCE GOMEZALEXANDRA Start: 07-18-2019 Cyanocobalamin vitamin b-12 MIRIAMArianna PATRICIANSWILFREDO Start: 07-18-2019 25 hydroxy includes fractions if performed Brenda GomezLaceywilfredo Work Phone: Start: 07-18-2019 Assay of ferritin Dulce Galeana ManoloLauroAlexandra Work Phone: Start: 07-18-2019 VITAMIN B12 & FOLATE Mo john paul Rios Work Phone: Start: 06-23-2019 Assay of lipase Nickolas cedillo Work Phone: Start: 06-23-2019 End: 06-23-2019 Assay of troponin quantitative Nickolas Domingo Work Phone: Start: 06-23-2019 Blood count complete auto&auto difrntl wbc Nickolas Domingo Work Phone: Start: 06-23-2019 Fibrin dgradj produc ts d-dimer quantitative Nickolas Domingo Work Phone: Start: 06-23-2019 Natriuretic peptide Giovanny Domingo Work Phone: Start: 06-23-2019 Ecg routine ecg w/le ast 12 lds w/i&r Nickolas Domingo Work Phone: Start: 06-23-2019 Radiologic exam ches t single view Nickolas Domingo Work Phone: Start: 02-20-2019 25 hydroxy includes fractions if performed Carmela Loida Work Phone: Start: 02-20-2019 Assay of ferritin Carmela Loida Work Phone: Start: 02-20-2019 Blood count complete auto&auto difrntl wbc Carmela Loida Work Phone: Start: 02-20-2019 Comprehensive metabo lic panel Carmela Loida Work Phone: Start: 02-20-2019 Iron binding capacity R enu Loida Work Phone: Start: 02-20-2019 VITAMIN B12 & FOLATE Re nu Loida Work Phone: Start: 12-24-2018 Iaadiadoo streptococ cus group a Abby Art Work Phone: Plan of Treatment Date Care Activity Detail Author Start: 07-27-2028 Lipid panel Lipids JEANA ANDERSONWILFREDO [employer] Start: 08-15-2027 Shingles Vaccine (1 of 2) Shingles Vaccine (1 of 2) [facility] Work Phone: Start: 11-20-2025 Screening for malign ant neoplasm of breast [facility] Start: 01-30-2025 GFR test (Diabetes, CKD 3-4, OR last GFR 15-59) GFR test (Diabetes, CKD 3-4, OR last GFR 15-59) [facility] Start: 11-20-2024 Screening for malign ant neoplasm of breast MAMMOGRAM SCREENING DISCUSSION [facility] Start: 08-07-2024 Depression Monitoring [facility] Start: 07-23-2024 COVID-19 Vaccine (#1) COVID-19 Vacci ne (#1) [facility] Comment on above: Postponed from 02/13 (Patient Refused) Start: 07-23-2024 DTaP/Tdap/Td vaccine (2 - Td or Tdap) DTaP/Tdap/Td vaccine (2 - Td or Tdap) [facility] Comment on above: Postponed from 11/17 (Patient Refused) Start: 07-23-2024 Hepatitis B vaccine (1 of 3 - 19+ 3-dose series) Hepatitis B vaccine (1 of 3 - 19+ 3-dose series) [facility] Comment on above: Postponed from 08/14 (Patient Refused) Start: 07-23-2024 Hepatitis B vaccine (1 of 3 - 3-dose series) Hepatitis B vaccine (1 of 3 - 3-dose series) [facility] Comment on above: Postponed from 08/14 (Patient Refused) Start: 07-23-2024 Influenza vaccination Flu vaccine (# 1) [facility] Comment on above: Postponed from 12/13 (Patient Refused) Start: 03-21-2024 End: 03-21-2024 Patient encounter procedure [facility] Start: 02-22-2024 End: 02-21-2025 Comprehensive metabolic 2000 panel - Serum or Plasma COMPREHENSIVE METABOLIC PANEL Lab Routine Morbid obesity with body mass index of 50 or higher WALTER (obstructive sleep apnea) Type 2 diabetes mellitus without complication, unspecified whether chcf insulin use Expected: 02/22/2024, Expires: 02/21/2025 [facility] Comment on above: Expected: 02/22/2024 , Expires: 02/21/2025 Start: 02-22-2024 End: 02-21-2025 Hemoglobin A1c/Hemoglobin.total in Blood HEMOGLOBIN A1C Lab Routine Morbid obesity with body mass index of 50 or higher WALTER (obstructive sleep apnea) Type 2 diabetes mellitus without complication, unspecified whether exterminator helper termite insulin use Expected: 02/22/2024, Expires: 02/21/2025 [facility] Comment on above: Expected: 02/22/2024 , Expires: 02/21/2025 Start: 02-22-2024 End: 02-22-2024 Patient encounter procedure 02/22/2024 10:30 AM EDT Office Visit [facility] [address] [place] [address] Janell Baldwin, PALauroC [address] [place] [address] [facility] Start: 01-25-2024 End: 01-25-2024 Patient encounter procedure 01/25/2024 2:20 PM EDT Office Visit [facility] [address] [place] [address] Brianna Mitchell, GROUT MACHINE OPERATOR - SAND CONTROL WORKER [address] [place] [address] 6 month f/u [facility] Comment on above: 6 month f/u Start: 01-14-2024 COVID-19 VACCINE ( season) COVID-19 VACCINE ( season) [facility] Start: 01-14-2024 Influenza vaccination INFLUENZA VACC INE (#1) [facility] Start: 12-14-2023 Influenza vaccination Flu vaccine (# 1) [facility] Start: 10-30-2023 Lipid panel [facility] Start: 10-30-2023 Lipid screen Lipid screen [facility] [place], [place] Start: 09-11-2023 End: 09-11-2023 Patient encounter procedure 09/11/2023 11:40 AM EDT Office Visit [facility] Part of [address] [place] [id number] Stephanie Arredondo MD [address] [place], [place] [address] [address] [place] [address] Just want to check in and get my meds [facility] Part of [facility] Comment on above: Just want to check i n and get my meds Start: 08-16-2023 End: 08-16-2023 Patient encounter procedure 08/16/2023 1:15 PM EDT Office Visit [facility] Part of [address] [address] Brenda Rios MD [address] [place] [address] b12 deficiency [facility] Part [facility] Comment on above: b12 deficiency Start: 08-08-2023 End: 08-08-2023 Nursing evaluation of patient and report 08/08/2023 2:30 PM EDT Nurse Only [facility] [address] [place] [address] 2 week bp check [facility] Comment on above: 2 week bp check Start: 07-22-2023 Depression Monitoring Depression Mon itoring [facility] Start: 01-03-2023 COVID-19 Vaccine (#1) COVID-19 Vacci ne (#1) [facility] Comment on above: Postponed from 02/13 (Not Indicated) Start: 01-03-2023 Depression Monitoring Depression Mon itoring [facility] Start: 01-03-2023 Screening for malign ant neoplasm of cervix Cervical cancer screen [facility] Comment on above: Postponed from 08/14 (Not Indicated) Start: 11-17-2022 DTaP/Tdap/Td vaccine (2 - Td or Tdap) DTaP/Tdap/Td vaccine (2 - Td or Tdap) [facility] Start: 11-17-2022 DTaP/Tdap/Td vaccine (2 - Td) DTaP/Tdap/Td vaccine (2 - Td) [facility] [place], [place] Start: 11-17-2022 Tetanus vaccination [facility] Start: 2022 Screening for malign ant neoplasm of colon [facility] Start: 07-13-2022 End: 07-13-2022 Patient encounter procedure 07/13/2022 Office Visit Oncology Flora Moore MD [address] [place] [address] [facility] Part [facility] Start: 07-06-2022 End: 07-06-2022 Patient encounter procedure 07/06/2022 Office Visit Primary Care Brianna Mitchell APRN - SAND CONTROL WORKER [address] [place] [address] [facility] Start: 05-21-2022 Depression Monitoring Depression [facility] Start: 04-28-2022 End: 04-28-2022 Patient encounter procedure 04/28/2022 Office Visit Neurology Stephanie Arredondo MD [address] [facility] [place] [id number] [facility] Start: 01-13-2022 Influenza vaccination [facility] Start: 01-07-2022 End: 01-07-2022 Patient encounter procedure 01/07/2022 Appointment Physical Therapy Anusha Torres PTA [facility] Start: 01-05-2022 End: 01-05-2022 Patient encounter procedure [facility] Part [facility] Start: 01-03-2022 End: 01-03-2022 Patient encounter procedure 01/03/2022 Office Visit Primary Care Brianna Mitchell APRN - SAND CONTROL WORKER [address] [place] [address] [facility] Start: 12-13-2021 Influenza vaccination Flu vaccine (# 1) [facility] Start: 11-25-2021 COVID-19 Vaccine (1) COVID-19 Vaccin e (1) [facility] Comment on above: Postponed from 08/14 (Patient Refused) Postponed from 08/14 (Patient Refused) Start: 11-25-2021 Screening for malign ant neoplasm of cervix Cervical cancer screen [facility] Work Phone: Comment on above: Postponed from 08/14 (Not Indicated) Start: 11-19-2021 End: 11-19-2021 Patient encounter procedure 11/19/2021 Office Visit Primary Care Brianna Mitchell W, GROUT MACHINE OPERATOR - SAND CONTROL WORKER [address] [place] [address] [facility] Start: 10-28-2021 End: 10-28-2021 Patient encounter procedure 10/28/2021 Office [place] [address] [id number] [facility] Part [facility] Start: 10-21-2021 End: 10-21-2021 Patient encounter procedure 10/21/2021 Office Visit Neurology Stephanie Arredondo MD [address] [place] [address] [facility] Start: 09-22-2021 End: 09-22-2021 Patient encounter procedure 09/22/2021 Office Visit Oncology Flora Moore MD [address] [place] [address] [facility] Part [facility] Start: 09-17-2021 End: 09-17-2021 Patient encounter procedure 09/17/2021 Appointment Physical Therapy Prabhu Leiva PTA [facility] Start: 09-09-2021 End: 09-09-2021 Patient encounter procedure 09/09/2021 Office Visit Neurology Stephanie Arredondo MD [address] [place] [address] [facility] Start: 09-03-2021 End: 09-03-2021 Patient encounter procedure 09/03/2021 Appointment Physical Therapy [facility] Start: 08-20-2021 End: 08-20-2021 Patient encounter procedure 08/20/2021 Appointment Physical Therapy Prabhu Leiva PTA [facility] Physical Therapy Start: 08-11-2021 End: 08-11-2021 Patient encounter procedure [facility] Part [facility] Start: 07-12-2021 End: 07-12-2021 Patient encounter procedure [facility] Start: 02-24-2021 End: 02-24-2021 Patient encounter procedure 02/24/2021 Office Visit Primary Care Brianna Mitchell, GROUT MACHINE OPERATOR - SAND CONTROL WORKER [address] [place] [address] [phone] [facility] Start: 01-27-2021 End: 01-27-2021 Patient encounter procedure 01/27/2021 Office Visit Oncology Flora Moore MD [address] [place] [address] [facility] Start: 01-13-2021 Influenza vaccination [facility] Start: 12-09-2020 End: 12-09-2020 Office Visit 12/09/2020 Office Visit Primary Care Brianna Mitchell GROUT MACHINE OPERATOR - SAND CONTROL WORKER [address] [place] [address] [phone] [facility] Start: 11-06-2020 End: 11-06-2020 Patient encounter procedure [facility] Start: 10-30-2020 End: 10-30-2020 Patient encounter procedure 10/30/2020 Appointment Physical Therapy Pj Siddiqui PT [facility] Start: 10-29-2020 End: 10-29-2020 Patient encounter procedure 10/29/2020 Office Visit Neurology Stephanie Arredondo MD [address] [place] [address] [facility] Part of [facility] Start: 10-07-2020 End: 10-07-2020 Patient encounter procedure 10/07/2020 Appointment Physical Therapy [facility] Start: 10-05-2020 End: 10-05-2020 Patient encounter procedure 10/05/2020 Appointment Physical Therapy Pj Siddiqui PT [facility] Start: 10-03-2020 Diabetes screen Diabetes screen [facility] Start: 09-30-2020 End: 09-30-2020 Patient encounter procedure [facility] Therapy Start: 09-28-2020 End: 09-28-2020 Patient encounter procedure 09/28/2020 Appointment Physical Therapy Pj Siddiqui PT [facility] Start: 09-23-2020 End: 09-23-2020 Patient encounter procedure 09/23/2020 Appointment Physical Therapy [facility] Start: 09-21-2020 End: 09-21-2020 Patient encounter procedure 09/21/2020 Appointment Physical Therapy Pj Siddiqui PT [facility] Start: 09-16-2020 End: 09-16-2020 Patient encounter procedure 09/16/2020 Appointment Physical Therapy [facility] Start: 09-14-2020 End: 09-14-2020 Patient encounter procedure 09/14/2020 Appointment Physical Therapy Pj Siddiqui PT [facility] Start: 09-10-2020 End: 09-10-2020 Patient encounter procedure 09/10/2020 Appointment Physical Therapy Pj Siddiqui PT [facility] Start: 09-08-2020 End: 09-08-2020 Patient encounter procedure 09/08/2020 Appointment Physical Therapy [facility] Start: 07-22-2020 End: 07-22-2020 Office Visit 07/22/2020 Office Visit Oncology Brenda Rios MD [address] [place] [address] [facility] Part of [facility] Start: 06-18-2020 Cervical cancer screen Cervical canc er screen [facility] Phone: Comment on above: Postponed from 08/14 (Patient Refused) Start: 06-18-2020 Influenza vaccination [facility] Phone: Comment on above: Postponed from 01/13 (Patient Refused) Postponed from 01/13 (Patient Refused) Start: 06-18-2020 Screening for malign ant neoplasm of cervix Cervical cancer screen [place], [place] Comment on above: Postponed from 08/14 (Patient Refused) Start: 04-06-2020 End: 04-06-2020 Office Visit 04/06/2020 Office Visit Primary Care Brianna Mitchell, GROUT MACHINE OPERATOR - SAND CONTROL WORKER [address] [place] [address] [phone] [facility] Start: 01-22-2020 End: 01-22-2020 Office Visit 01/22/2020 Office Visit Oncology Brenda Rios MD [address] [place] [address] [facility] Start: 01-14-2020 Influenza vaccination Flu vaccine (# 1) [place], [place] Start: 12-18-2019 End: 12-18-2019 Office Visit [facility] Start: 08-09-2019 End: 08-09-2019 Appointment 08/09/2019 Appointment Infusion Therapy [facility] Start: 07-18-2019 End: 07-18-2019 Office Visit 07/18/2019 Office Visit Oncology Brenda Rios MD [address] [place] [address] [facility] Start: 04-25-2019 End: 04-25-2019 Office Visit 04/25/2019 Office Visit Primary Care Brianna Mitchell, GROUT MACHINE OPERATOR - SAND CONTROL WORKER [address] [place] [address] [phone] [facility] Start: 02-19-2019 End: 02-19-2019 Appointment 02/19/2019 Appointment Sleep Center [facility] Start: 02-11-2019 End: 02-11-2019 Office Visit 02/11/2019 Office Visit Oncology Carmela Mariscal MD [address] [place] [address] [facility] Start: 01-31-2019 End: 01-31-2019 Office Visit 01/31/2019 Office Visit Oncology Carmela Mariscal MD [address] [place] [address] [facility] Start: 01-13-2019 Influenza vaccination Flu vaccine (# 1) [place], [place] Start: 2017 Lipid panel LIPID SCREENING [facility] Start: 2017 Screening for malign ant neoplasm of breast MAMMOGRAM SCREENING DISCUSSION [facility] Start: 08-15-2007 Screening for malign ant neoplasm of cervix [facility] Start: 1998 Cervical cancer screen Cervical canc er screen [place], [place] Start: 1998 Screening for malign ant neoplasm of cervix [facility] Start: 1996 Hepatitis B vaccination HEP B VACCINE (1 of 3 - 19+ 3-dose series) [facility] Start: 1993 COVID-19 Vaccine (1) COVID-19 Vaccin e (1) [facility] Start: 1992 HIV screening HIV SCREENING DISCUSSI ON [facility] Start: 1989 COVID-19 Vaccine (1) COVID-19 Vaccin e (1) [facility]: Start: 02-13-1978 COVID-19 Vaccine (#1) COVID-19 Vacci ne (#1) [facility] Start: 1977 Hepatitis C screening HEPATITI S C VIRUS SCREENING [facility] End: 11-25-2020 RAÚL Screen With Reflex RAÚL Screen With Reflex Lab Routine Polyneuropathy 1 Occurrences starting 11/25/2020 until 11/25/2020 [facility] [employer] Phone: Comment on above: 1 Occurrences starti ng 11/25/2020 until 11/25/2020 RAÚL Screen With Reflex RAÚL Scree n With Reflex Lab Routine Polyneuropathy 11/25/2020 9:20 AM EDT [facility] [employer] Phone: End: 02-12-2021 Basic metabolic 2000 panel - Serum or Plasma Basic Metabolic Panel Lab STAT One Time for 1 Occurrences starting 02/12/2021 until 02/12/2021 [facility] Phone: Comment on above: One Time for 1 Occur rences starting 02/12/2021 until 02/12/2021 End: 02-12-2021 CBC panel - Blood by Automated count CBC Lab STAT One Time for 1 Occurrences starting 02/12/2021 until 02/12/2021 [facility] Phone: Comment on above: One Time for 1 Occur rences starting 02/12/2021 until 02/12/2021 End: 11-03-2019 Chlamydia trachomatis DNA, Urine Chlamydia trachomatis DNA, Urine Microbiology Routine One Time for 1 Occurrences starting 11/03/2019 until 11/03/2019 [facility] [employer] [place] Comment on above: One Time for 1 Occur rences starting 11/03/2019 until 11/03/2019 Chlamydia trachomati s DNA, Urine Chlamydia trachomatis DNA, Urine Microbiology STAT 11/03/2019 1:03 AM EDT [facility] [place] [place] End: 05-22-2020 Cobalamin (Vitamin B12) [Mass/Vol] Vitamin B12 Lab Routine Iron deficiency anemia, unspecified iron deficiency anemia type Intestinal malabsorption, unspecified type H/O gastric bypass B12 deficiency 1 Occurrences starting 05/22/2020 until 05/22/2020 [facility] [employer] [place] Comment on above: 1 Occurrences starti ng 05/22/2020 until 05/22/2020 Cobalamin (Vitamin B 12) [Mass/Vol] Vitamin B12 Lab Routine Iron deficiency anemia, unspecified iron deficiency anemia type Intestinal malabsorption, unspecified type H/O gastric bypass B12 deficiency 05/22/2020 4:49 PM EST [facility] [place] [place] End: 04-04-2020 COVID-19, PCR COVID-19, PCR Lab Routine One Time for 1 Occurrences starting 04/04/2020 until 04/04/2020 [facility] [place] [place] Comment on above: One Time for 1 Occur rences starting 04/04/2020 until 04/04/2020 COVID-19, PCR COVID-19, PCR La b STAT 04/04/2020 9:25 PM EST [facility] [place] [facility] HEAD W WO CONTRAST CT HEAD W WO CONTRAST Imaging STAT 06/27/2022 1:15 PM EST [employer] Work Phone: End: 02-12-2021 CT Head WO Contrast CT Head WO Contrast Imaging STAT Once for 1 Occurrences starting 02/12/2021 until 02/12/2021 [facility] Phone: Comment on above: Once for 1 Occurrenc es starting 02/12/2021 until 02/12/2021 End: 07-24-2023 Culture, Urine [employer] Comment on above: 1 Occurrences starti ng 07/24/2023 until 07/24/2023 EKG 12 Lead [facility] Phone: EKG 12 Lead EKG 12 Lead ECG STAT 06/27/2022 12:52 PM EST [employer] Work Phone: EKG 12 Lead (Select if Upper Abd Pain, or SOB, Diaphoresis or Tachy) EKG 12 Lead (Select if Upper Abd Pain, or SOB, Diaphoresis or Tachy) ECG STAT 01/31/2024 9:50 PM EDT [employer] Phone: End: 05-22-2020 Folate Folate Lab Routine Iron deficiency anemia, unspecified iron deficiency anemia type Intestinal malabsorption, unspecified type H/O gastric bypass B12 deficiency 1 Occurrences starting 05/22/2020 until 05/22/2020 [facility] [place] Comment on above: 1 Occurrences starti ng 05/22/2020 until 05/22/2020 Folate Folate Lab Routi ne Iron deficiency anemia, unspecified iron deficiency anemia type Intestinal malabsorption, unspecified type H/O gastric bypass B12 deficiency 05/22/2020 4:49 PM EST [facility] [place] End: 02-12-2021 HCG Qualitative, Serum HCG Qualitative, Serum Lab STAT One Time for 1 Occurrences starting 02/12/2021 until 02/12/2021 [facility] Phone: Comment on above: One Time for 1 Occur rences starting 02/12/2021 until 02/12/2021 End: 02-20-2019 Methylmalonic Acid, Serum Methylmalonic Acid, Serum Lab Routine Iron deficiency anemia, unspecified iron deficiency anemia type Intestinal malabsorption, unspecified type H/O gastric bypass B12 deficiency 1 Occurrences starting 02/20/2019 until 02/20/2019 [place] Comment on above: 1 Occurrences starti ng 02/20/2019 until 02/20/2019 Methylmalonic Acid, Serum Methylmalonic Acid, Serum Lab Routine Iron deficiency anemia, unspecified iron deficiency anemia type Intestinal malabsorption, unspecified type H/O gastric bypass B12 deficiency 02/20/2019 7:57 AM EDT [place], [place] End: 02-19-2019 Sleep Study with PAP Titration Sleep Study with PAP Titration Sleep Center Routine WALTER (obstructive sleep apnea) 1 Occurrences starting 02/19/2019 until 02/19/2019 [place], [place] Comment on above: 1 Occurrences starti ng 02/19/2019 until 02/19/2019 End: 02-20-2019 Soluble transferrin receptor Soluble transferrin receptor Lab Routine Iron deficiency anemia, unspecified iron deficiency anemia type 1 Occurrences starting 02/20/2019 until 02/20/2019 [place] Comment on above: 1 Occurrences starti ng 02/20/2019 until 02/20/2019 Soluble transferrin receptor Soluble transferrin receptor Lab Routine Iron deficiency anemia, unspecified iron deficiency anemia type 02/20/2019 7:57 AM EDT [place] End: 02-12-2021 Troponin I.cardiac [Mass/volume] in Serum or Plasma Troponin Lab STAT One Time for 1 Occurrences starting 02/12/2021 until 02/12/2021 [facility] Phone: Comment on above: One Time for 1 Occur rences starting 02/12/2021 until 02/12/2021 End: 11-25-2020 Vitamin D 1,25 Dihydroxy Vitamin D 1,25 Dihydroxy Lab Routine Hypocalcemia 1 Occurrences starting 11/25/2020 until 11/25/2020 [facility] Phone: Comment on above: 1 Occurrences starti ng 11/25/2020 until 11/25/2020 Vitamin D 1,25 Dihydroxy Vitamin D 1,25 Dihydroxy Lab Routine Hypocalcemia 11/25/2020 9:21 AM EDT [employer] Phone: End: 02-12-2021 XR CHEST PORTABLE XR CHEST PORTABLE Imaging STAT Once for 1 Occurrences starting 02/12/2021 until 02/12/2021 [employer] [employer] Phone: Comment on above: Once for 1 Occurrenc es starting 02/12/2021 until 02/12/2021 Immunizations Immunization Date Immunization Notes Care Provider Dedra holloway 03-20-2018 influenza, injectabl e, quadrivalent, preservative free Brianna [place], [place] 03-20-2018 Influenza, Quadv, 6 mo and older, IM, PF (Flulaval, Fluarix) Chepe Stafford [facility] 06-20-2016 influenza, injectabl e, quadrivalent, preservative free Brianna [place], [place] 06-20-2016 influenza virus vaccine, unspecified formulation Wayne Joseph DO Work Phone: [facility] 11-17-2012 tetanus toxoid, redu jairon diphtheria toxoid, and acellular pertussis vaccine, adsorbed Brianna [facility] Payers Date Payer Category Payer Unknown [employer] [facility] [id number] 2023-Present [address] [place] [address] [id number] 2022 Self-pay 2016 Unknown [facility] xxxxxxxxxxx 2016-Present [phone] CLAIMS DEPARTMENT [address] [place] [address] xxxxxxxxxxx [id number] 2016 Unknown [id number] 1977 Unknown [id number] 1977 Unknown [id number] 1977 Unknown [id number] [id number] 1977 Unknown [id number] [id number] 1977 Unknown [id number] 1977 Unknown [id number] [id number] 1977 Unknown [id number] [id number] 1977 Unknown [id number] [id number] 1977 Unknown [id number] [id number] 1977 Unknown [id number] [id number] 1977 Unknown [id number] [id number] 1977 Unknown [id number] [id number] 1977 Unknown [id number] [id number] 1977 Unknown [id number] [id number] 1977 Unknown [id number] 1959 Unknown [id number] Social History Date Type Detail Facility Start: 12-24-2018 End: 02-22-2024 Tobacco smoking status NHIS Never smoker [facility] Start: 12-24-2018 End: 02-22-2024 Alcohol intake No [facility] Start: 1975 Sex Assigned At Not on file M [facility] Start: 06-23-2019 End: 01-31-2024 Alcohol intake Current non-drinker of alcohol (finding) Ana Maria 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 [employer] Work Phone: Start: 06-18-2019 End: 11-25-2020 History SDOH Transport Med 1 [employer] Work Phone: Exposure to SARS-CoV -2 (event) Unable to assess [facility] Start: 11-13-2019 End: 02-22-2024 Tobacco use and exposure Never used [facility] Start: 08-29-2021 End: 06-27-2022 Exposure to SARS-CoV-2 (event) Not sure [facility] Start: 11-25-2020 History SDOH Financial 5 [employer] Work Phone: Start: *T[employer] Start: [employer] Start: 07-24-2023 End: 02-22-2024 History of Social function [employer] How hard is it for y ou to pay for the very basics like food, housing, medical care, and heating Not hard at all [employer] (I/We) worried jean marie er (my/our) food would run out before (I/we) got money to buy more. Never true [employer] At any time in the p ast 12 months, were you homeless or living in detention [including now]? No [employer] Start: 07-24-2023 Tobacco Comment Never even tried [employer] Tobacco smoking stat us KYIS Tobacco smoking consumption unknown [facility] Start: 01-23-2017 Gender identity Identifies as female gender (finding) [facility] How often to you hav e a drink containing alcohol? Never [facility] Clinical Notes 09-04-2020 to 02-22-2024 Janell Baldwin PA-C - 02/22/2024 10:30 AM EDTDischarge InstructionsAttachmentsWayne Joseph, DO - 01/23/2024 11:00 AM EDTDischarge InstructionsAttaVikram Aguirre, PT - 11/08/2021 3:30 PM EDT Note Date & Type Note Facility 02-22-2024 History of Present illness Narrative Chief Complaint Patient presents with New Patient [facility] new patient Patient here for Medical Weight Loss TYONEK: Abby Cabrera is a 48 y.o. y.o. female who presents today with the complaint of obesity. She states that she has had gradual weight gain and would like to have assistance with weight loss. She recently saw Dr. Joseph for a consult, she has had a gastric bypass in the past and has lost over 100 lbs. She is still overweight and would like to continue to lose weight. She was 500 before her surgery and was 210 at her lowest after surgery. Goal of Medical Weight Loss: would like to lose at least 50 more, sustained weight loss. Do you ever eat excessive amounts of food in a short period of time?: No On average, how often do you do this?: no Do you feel remorse or distressed over this eating pattern?: No Behavior change/strategies to overcome barriers: increase in exercise due to endurance Has the patient been on a weight loss regimen of a low-calorie diet with reduced caloric intake of about 30% fewer calories, increased physical activity with maintenance of 150 minutes weekly, and behavioral modifications for a minimum of 6 months (24 weeks) prior to initiating therapy with the requested medication? yes How many weeks has the patient made these lifestyle changes? Since 2004 Did the patient achieve a weight loss of 1 pound or more per week while on the weight loss regimen prior to initiating therapy with requested medication? yes Has the patient achieved and maintained a weight loss of at least 5% from baseline (prior to initiation of the requested medication)? yes How much weight did the patient lose on the weight loss regimen? 100 at least Is the patient currently on and will continue with a weight loss regimen of a low-calorie diet, increased physical activity, and behavioral modifications? yes Will the patient be using the requested medication in combination with another targeted weight loss agent for the requested diagnosis? no Has the patient tried a targeted weight loss agent in the past 12 months? no Will the patient be using the requested medication with another GLP-1 receptor agonist agent? no Does the patient have a history of pancreatitis? no Does the patient have a personal or family history of medullary thyroid carcinoma or Multiple Endocrine Neoplasia syndrome type 2? no Does the patient have severe gastrointestinal disease (including but not limited to gastroparesis)? no Does the patient have a history of suicide attempt or have active suicidal ideation? no Does the prescriber anticipate that the patient will be successful with weight loss therapy with the requested agent? yes Is the patient newly starting therapy with requested agent? yes She has used prescription medication for weight loss in the past. Including: phentermine She denies heart disease She does have: see problem list REVIEW OF SYSTEMS: GENERAL: Negative for malaise, significant weight loss and fever HEAD: Negative for headache, swelling. NECK: Negative for lumps, goiter, pain and significant neck swelling RESPIRATORY: Negative for cough, wheezing or shortness of breath. CARDIOVASCULAR: Negative for chest pain, leg swelling or palpitations. GI: Negative for abdominal discomfort, blood in stools or black stools or change in bowel habits : No history of dysuria, frequency or incontinence MUSCULOSKELETAL: Negative for joint pain or swelling, back pain or muscle pain. SKIN: Negative for lesions, rash, and itching. PSYCH: Negative for sleep disturbance, mood disorder and recent psychosocial stressors. ENDOCRINE: Negative for cold or heat intolerance, polyuria, polydipsia and goiter. PHYSICAL EXAM: Visit Vitals BP 133/74 (BP Location: Right arm, BP Position: Sitting) Pulse 73 Ht 1.626 m (5' 4 ) Wt (!) 144.6 kg (318 lb 12.8 oz) SpO2 96% BMI 54.72 kg/m General appearance: obese, NAD Neuro: AOx3 Head: EOMI; no swelling or lesions of scalp or face ENT: no lumps or lymphadenopathy, thyroid normal to palpation; oropharynx clear, no swelling or erythema Skin: warm, no erythema or rashes Lungs: clear to percussion and auscultation Heart: regular rhythm and S1, S2 normal Abdomen: soft, non-tender, no masses, no organomegaly Extremities: Normal exam of the extremities. No swelling or pain. Psych: no hurried speech, no flight of ideas, normal affect Past Medical History Includes Her Wt Readings from Last 3 Encounters: 02/22/24 (!) 144.6 kg (318 lb 12.8 oz) 01/23/24 (!) 147.6 kg (325 lb 6.4 oz) and current Body mass index is 54.72 kg/m . Assessment/Plan Abby was seen today for new patient. Diagnoses and all orders for this visit: Morbid obesity with body mass index of 50 or higher - AMB REFERRAL TO SLEEP MEDICINE - COMPREHENSIVE METABOLIC PANEL; Future - HEMOGLOBIN A1C; Future - phentermine 37.5 MG tablet; Take 1 tablet by mouth every morning before breakfast. WALTER (obstructive sleep apnea) - AMB REFERRAL TO SLEEP MEDICINE - COMPREHENSIVE METABOLIC PANEL; Future - HEMOGLOBIN A1C; Future Type 2 diabetes mellitus without complication, unspecified whether chcf insulin use - COMPREHENSIVE METABOLIC PANEL; Future - HEMOGLOBIN A1C; Future Here today for medically managed weight loss therapy. 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 We have discussed with patient that all health optimization treatment is voluntary. Risks and benefits have been discussed of medically managed weight loss treatments. Patient elects to start managed weight loss therapy and phentermine. - Start phentermine one half tablet for one week. May increase to full tablet if tolerating - Discussed side effects to monitor - Discussed positive lifestyle changes - Nutrition referral placed - Follow up in one month At least 30 minutes was spent with patient face to face performing exam, discussing progress, diet, exercise, education and plan of care for the following month. Additional time was spent review of chart and documentation of today's visit. Janell Sigala PA-C Bariatric and General Surgery documented in this encounter [facility] 02-01-2024 Hospital Discharge instructions Pily Mariscal MD - 02/01/2024 12:53 AM EDT Make sure that she plenty water. Take Keflex as directed until complete. Tylenol as needed for pain. Follow-up with your primary care provider within 3 to 5 days if symptoms do not resolve. Please return immediately she develop any worsening symptoms or any other acute concerns The following attachments cannot be sent through Care Everywhere.Abdominal Pain (Mauritian)UTI (Urinary Tract Infection): Female (Mauritian)documented in this encounter [facility] 01-23-2024 History of Present illness Narrative Bariatric History and Physical Patient:Abby Cabrera :1975 Date: 01/23/2024 PRIMARY/REFERRING PHYSICIAN INFORMATION No primary care provider on file. HISTORY OF PRESENT ILLNESS CHIEF COMPLAINT: morbid obesity with significant comorbidities. Patient is being referred for pre operative consult for weight loss surgery HISTORY OF PRESENT ILLNESS: The patient is a very pleasant patient who has developed morbid obesity with significant comorbidities who has failed multiple dietary attempts at weight loss. Abby Cabrera is a 48 y.o. female who presents with complaints of obesity which is severely limiting her life style. She is interested in learning about possible surgical options to help her fight her obesity. She has tried diet and exercise programs previously. She is limited in his physical activity due to obesity. she has been obese for more than 5 years and states that their highest recorded weight is 325 lbs. Previous attempts at weight loss have included exercise routines, exercise videos, low fat/low calorie diets, commercial weight loss programs such as weight watchers.she complains of rare reflux and denies dysphagia. She has a history of RYGB in 2004 in [place], [place]. Past Medical History: Diagnosis Date Anemia Asthma Depression Diabetes mellitus Essential hypertension, benign Migraine WALTER (obstructive sleep apnea) COMORBIDITIES hypertension, type-2 diabetes, obstructive sleep apnea No past surgical history on file. Current Outpatient Medications Medication Sig Amitriptyline 25 MG tablet Take 1 tablet by mouth At bedtime. busPIRone 15 MG tablet Take 1 tablet by mouth 2 times daily. Dicyclomine 20 MG tablet Take 1 tablet by mouth After meals as needed for Abdominal Spasms. FLUoxetine 10 MG capsule Take 1 capsule by mouth daily. Lisinopril 20 MG tablet Take 1 tablet by mouth daily. lurasidone HCl (Latuda) 80 MG tablet Take 40 mg by mouth daily with dinner. Ondansetron 4 MG tablet Take 1 tablet by mouth every 8 hours as needed for Nausea / Vomiting. Propranolol 20 MG tablet Take 1 tablet by mouth as needed for Headaches. SUMAtriptan 50 MG tablet Take 1 tablet by mouth once. May repeat in 2 hr, MAX 200MG/24HR SYRINGE-NEEDLE, DISP, 3 ML (B-D INTEGRA SYRINGE) 22G X 1-1/2 3 ML Misc by Unknown route. tiZANidine 4 MG tablet Take 1 tablet by mouth 2 times daily. venlafaxine 150 MG Cap SR 24HR capsule XR Take 1 capsule by mouth 2 times daily. Allergies Allergen Reactions Anesthesia S-I-40 [Propofol] Causes Blood clots Isai Dxgisa-Nhhzjqfgedh-Ewwjxq Latex [Wound Dressing Adhesive] Rash and Swelling Bee Venom Swelling Stevia Glycerite Extract [Flavoring Agent] Nausea and Vomiting Social History Socioeconomic History Marital status: Spouse name: Not on file Number of children: Not on file Years of education: Not on file Highest education level: Not on file Occupational History Not on file Tobacco Use Smoking status: Not on file Smokeless tobacco: Not on file Substance and Sexual Activity Alcohol use: Not on file Drug use: Not on file Sexual activity: Not on file Other Topics Concern Not on file Social History Narrative Not on file Social Determinants of Health Financial Resource Strain: Low Risk (07/24/2023) Received from [facility] Overall Financial Resource Strain (CARDIA) Difficulty of Paying Living Expenses: Not hard at all Food Insecurity: No Food Insecurity (07/24/2023) Received from [facility] Hunger Vital Sign Worried About Running Out of Food in the Last Year: Never true Ran Out of Food in the Last Year: Never true Transportation Needs: Unknown (07/24/2023) Received from [facility] PRAPARE - Transportation Lack of Transportation (Medical): Not on file Lack of Transportation (Non-Medical): No Physical Activity: Not on file Stress: Not on file Social Connections: Not on file Intimate Partner Violence: Not on file Housing Stability: Not on file No family history on file. No family status information on file. REVIEW OF SYSTEMS Review of Systems Constitutional: Negative for chills, diaphoresis and fatigue. HENT: Negative for congestion, facial swelling and hearing loss. Eyes: Negative for pain, redness and itching. Respiratory: Negative for apnea, cough, choking and chest tightness. Cardiovascular: Negative for chest pain, palpitations and leg swelling. Gastrointestinal: Negative for abdominal distention, abdominal pain, constipation, diarrhea, nausea and vomiting. Endocrine: Negative for cold intolerance, heat intolerance and polyphagia. Genitourinary: Negative for difficulty urinating, dysuria, enuresis and flank pain. Musculoskeletal: Negative for arthralgias, back pain, gait problem and joint swelling. Skin: Negative for color change, pallor and rash. Allergic/Immunologic: Negative for environmental allergies, food allergies and immunocompromised state. Neurological: Negative for dizziness, light-headedness, numbness and headaches. Hematological: Negative for adenopathy. Does not bruise/bleed easily. Psychiatric/Behavioral: Negative for agitation, behavioral problems and confusion. Social History Tobacco Use Smoking Status Not on file Smokeless Tobacco Not on file PHYSICAL EXAM General Appearance: Well appearing, alert, in no acute distress, well-hydrated, well nourished., morbidly obese. Eyes: conjunctivae and sclerae normal, pupils equal, round, reactive to light and accommodation and no scleral icterus. Ears/Nose/Mouth/Throat: External ears normal, canals clear, TM's normal, Nares normal. Septum midline. Mucosa normal. No drainage or sinus tenderness., Lips, mucosa, and tongue normal, teeth and gums normal, oropharynx normal. Neck: Supple, no adenopathy; thyroid symmetric, normal size, no bruits. Respiratory: Clear to auscultation bilaterally Cardiovascular: Regular rate and rhythm, distal pulses intact bilaterally. Abdomen: soft, non-tender, non-distended, obese, no hernias palpated Lymph Nodes: No cervical lymphadenopathy. Musculoskeletal: Spine range of motion normal. Muscular strength intact, No joint swelling, deformity, or tenderness. Skin: No lesions noted. Neurologic: mental status intact, cranial nerves 2-12 intact, sensation to light touch and pinprick normal. Psychiatric: A&O x 3; Judgement/lnsight appropriate Rectal: deferred exam. DIAGNOSIS/IMPRESSION Encounter Diagnoses Name Primary? 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 Height: 5'4 Weight:325 lbs SURGICAL PLAN I had a long discussion with Abby about her options for weight loss. These included medical and surgical options. She has a significant surgical history which includes an open RYGB and ventral hernia repair for incarcerated bowel. She has elected to proceed with medical weight loss. I spent greater than 30 minutes in total reviewing the patient's chart, interviewing the patient, and documenting today's visit. Wayne Joseph DO 01/23/2024 12:25 PM Bariatric Surgery documented in this encounter [facility] 06-27-2022 Hospital Discharge instructions Surinder Mireles MD - 06/27/2022 2:44 PM EST Take your medications as prescribed. Follow-up with your neurologist in the next 2 to 3 days for reevaluation. Follow-up with your primary care physician as well. Return to the emergency department if you develop any new or worsening symptoms. The following attachments cannot be sent through Care Everywhere.Headache (Mauritian)documented in this encounter [employer] Phone: 11-08-2021 History of Present illness Narrative [facility] Outpatient Physical Therapy Evaluation Date: 11/08/2021 Patient: Abby Cabrera : 1975 CSN #: [id number] Referring Physician: Brianna Mitchell APRN - * Medical Diagnosis: Chronic bilateral low back pain with sciatica, M54.5; Chronic L shoulder pain, M25.512; Chronic neck pain, M54.2 Treatment Diagnosis: chronic back pain, chronic L shld pain Onset Date: 05/21/21 PT Insurance Information: [employer] Total # of Visits Approved: 12 Total # of Visits to Date: 1 No Show: 0 Canceled Appointment: 0 Subjective Subjective: Pt states she has been having difficulty with strength and pain over the past few months. Pt states she is having difficulty maintaining positions for long periods of time or participating in extended activity. Pt notes she is able to walk for longer distances as long as she doesn't stop while walking. She is unable to start again if she does. Pt notes her pain varies from 1/10-8/10 depending on activity. Additional Pertinent Hx: DM, anxiety, depression, arthritis, panic attacks Observations: Forward Head/Rounded Shoulders Balance Screen: Single Leg Stance Right Leg Eyes Open: 7 seconds Left Leg Eyes Open: 5 seconds Objective AROM R Shld WFL L Shld F/ABD: 110 L SHLD IR: PSIS ER: Upper trap PROM L SHLD F/ABD: 120 limited by pain Strength General Strength Testing LE: (3- - 3/5 B. hip rotation is stable) L UE Strength Comment: 2+/5 - 3-/5 L UE Strength Comment: 2+/5 - 3-/5 Cervical Assessment WFL Special Tests: Special Tests Lumbar Spine Lumbar Special Tests: Performed Slump Test: R (+),L (+) Exercises: Exercise 1: HEP: Scap retractions, PPT, sit-stand Functional Outcome Measures Timed Up and Go: 10.6 5xSTS: 25.7 Assessment Assessment: Pt is a very pleasant 46 yo woman who presents with LBP, Shoulder pain, and neck pain. Pt presents with limited LE MMT (3/5-3+/5) as well as limited functional endurance as seen with 5xSTS test. Pt also presents with limited lumbar mobility (50-75% in all planes) and increased pain with functional movements and positions (8/10 max). Pt also presents with limited L Shld RoM (~110 degrees flex/abd) and L shoulder strength (3-/5). Pt would benefit from skilled aquatic based therapy d/t intolerance of land based activities as well as to promote an enviornment to best address these listed functional defecits. Therapy Prognosis: Fair Decision Making: High Complexity Patient Education Patient Education: PT POC and HEP Pt verbalized/demonstrated good understanding: [X] Yes [] No, pt required further clarification. Goals Short Term Goals Time Frame for Short term goals: 3 weeks Short term goal 1: Pt will initiate HEP Short term goal 2: Pt will initiate aquatic therapy program to improve tolerance for strengthening and mobility exercises Corrugator Operator Goals Time Frame for [facility] goals : 6 weeks [facility] goal 1: Pt will be independent and compliant with HEP. terminal gauger goal 2: Pt will improve BLE strength grossly to 4 to 4+/5 for improved functional mobility. [facility] goal 3: Pt will improve L shld strength to >/= 4 to 4+/5 for ease of lifting/carrying tasks. [facility] goal 4: Pt will report >/= 50% improvement in pain and overall function to improve QOL. Patient goals : to get strength/endurance back Minutes Tracking: Time In: 1545 Time Out: 1623 Minutes: 38 Timed Code Treatment Minutes: 35 Minutes Sujit Aguirre, PT, DPT 11/08/2021 documented in this encounter [facility] [employer] Phone: 09-20-2021 History of Present illness Narrative [facility] Inpatient/Observation/Outpatient Rehabilitation Date: 09/20/2021 Patient Name: Abby Cabrera [] Inpatient Acute/Observation [] Outpatient : 1975 [] Pt no showed for scheduled appointment [] Pt refused/declined therapy at this time due to: [x] Pt cancelled due to: [] No Reason Given [x] Sick/ill [] Other: Therapist/Machine Pie Maker will attempt to see this patient, at our earliest opportunity. Zulema Vincent Date: 09/20/2021 [facility] History of Present illness Narrative [facility] Inpatient/Observation/Outpatient Rehabilitation Date: 08/05/2021 Patient Name: Abby Cabrera [] Inpatient Acute/Observation [] Outpatient : 1975 [] Pt no showed for scheduled appointment [] Pt refused/declined therapy at this time due to: [x] Pt cancelled due to: [] No Reason Given [] Sick/ill [x] Other: Daughter is having surgery Therapist/Machine Pie Maker will attempt to see this patient, at our earliest opportunity. Zulema Vincent Date: 08/05/2021 documented in this encounter [facility] Phone: 07-16-2021 History of Present illness Narrative [facility] Outpatient Physical Therapy Evaluation Date: 07/16/2021 Patient: Abby Cabrera : 1975 CSN #: [id number] Referring Practitioner: DEIRDRE Solares Referral Date : 05/21/21 Medical Diagnosis: Chronic bilateral low back pain with sciatica, M54.5; Chronic L shoulder pain, M25.512; Chronic neck pain, M54.2 Treatment Diagnosis: chronic back pain, chronic L shld pain Onset Date: 05/21/21 PT Insurance Information: [employer] Total # of Visits to Date: 1 No Show: 0 Canceled Appointment: 0 Subjective Subjective: Pt states she has low back degeneration and she cannot stand, sit or lay down for too long. Pt states she is only able to be in one position for 15mins at a time. 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 Pt states she has fallen ~8 times in the past month or so. Pt states she falls from legs buckling, dizziness and shooting pain down legs. Pt states she is trying to get social security, but has to go through physical therapy first. Pt states she did some physical therapy for migraines and L shld pain last year. Pt states she continues to get pain down both legs, right worse than left. Pt states she uses her TENS unit to help with pain. Pt states she still has L shoulder pain, which pt reports her L arm feels fatigued. Pt states she gets N/T in her hands, but mostly her feet. Pt states she has N/T in her feet all the time. Pt states pain level currently 2/10, but increases to 8/10 at worst. Additional Pertinent Hx: DM, anxiety, depression, arthritis, panic attacks Pain Screening Patient Currently in Pain: Yes Pain Assessment Pain Assessment: 0-10 Pain Level: 2 Pain Location: Back Objective Observation/Palpation Observation: Pt demonstrates forward head/rounded shoulder posturing. RLE General PROM: RLE PROM grossly WNL, but pt demonstrates pain behaviors throughout 75% of range LLE General PROM: LLE PROM grossly WNL, but pt demonstrates pain behaviors throughout 75% of range LUE General PROM: L shld PROM WNL in all plane, but pt demonstrates pain behaviors near end range of all shld mobility Spine Cervical: Rotation 75* bilaterally, flex/ext/SB all WNL Lumbar: Trunk flex fingertips to mid-tib, ext limited to neutral, SB WNL bilaterally. Strength RLE Comment: Hip flex 3+/5, knee flex/ext 3+ to 4-/5 Strength LLE Comment: Hip flex 3+/5, knee flex/ext 3+ to 4-/5 Strength RUE Comment: Shld flex and ABD 4-/5 Strength LUE Comment: Shld flex and ABD 3+/5 Additional Measures Special Tests: Pt has pain with majority of special tests, limiting accuracy. Pt has (+) SLR bilaterally, R more severe than L in regards to pain. However, SLR nearing 80-90* bilaterally. Other: Pt able to perform 5 sit to stands with hands on thighs Exercises: Exercise 1: HEP: LTR, PPT, seated LAQ Functional Outcome Measures Self-reported disability= 50-60% Pt able to complete 5 sit to stands with hands on thighs-- requires increased time d/t pain and difficulty Assessment Assessment: Pt is a 45 y/o female who presents to PT with chronic low back pain, chronic L shoulder pain, and chronic neck pain. Pt currently demonstrates BLE PROM WNL, but pt demonstrates pain behaviors through 75% of range. L shld A/PROM all WNL, but again pt demostrates pain behaviors near end range of all shld PROM. Special testing limited d/t pain with majority of testing. Pt demonstrates (+) SLR bilaterally, but R more severe than L. However, pt able to perform SLR to ~80-90* bilaterally. Trunk AROM: flexion fingertips reaching to mid-tib region, ext limited to neutral, SB WNL bilaterally. CROM is WFL in all planes. BLE MMT: Hip flex 3+/5, knee flex/ext 3+ to 4-/5; some inconsistencies and intermittent tremors with RLE MMT. L shld MMT: flex and ABD 4-/5. D/t poor tolerance for land-based exercises, pt will benefit from aquatic therapy program to progress strength and functional mobility in unloaded environment. Prognosis: Fair Decision Making: High Complexity Patient Education *Patient Education: PT POC and HEP Pt verbalized/demonstrated good understanding: [X] Yes [] No, pt required further clarification. Goals Short term goals Time Frame for Short term goals: 3 weeks Short term goal 1: Pt will initiate HEP. Short term goal 2: Pt will initiate aquatic therapy program to improve tolerance for strengthening and mobility exercises. terminal gauger goals Time Frame for terminal gauger goals : 6 weeks [facility] goal 1: Pt will be independent and compliant with HEP. terminal gauger goal 2: Pt will improve BLE strength grossly to 4 to 4+/5 for improved functional mobility. terminal gauger goal 3: Pt will improve L shld strength to >/= 4 to 4+/5 for ease of lifting/carrying tasks. terminal gauger goal 4: Pt will report >/= 50% improvement in pain and overall function to improve QOL. Patient goals : None stated Minutes Tracking: Time In: 1600 Time Out: 1641 Minutes: 41 Timed Code Treatment Minutes: 40 Minutes Donna Damon PT, DPT 07/16/2021 [facility]: [facility]21 Hospital Discharge instructions Ebony Bonds DO - 02/12/2021 You have chosen to leave, without having labs, or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 mellitus without complication, unspecified whether [facility]cf insulin use Essential hypertension Wayne Joseph, DO [address] [place] [address] Janell Baldwin PA-C [address] [place] [address] Referral ID Status Reason Start Date Expiration Date V isits Requested Visits Authorized [id number] New Request 01/23/2024 02/16/2025 1 1 INFORMATION SOURCE (unrecogn ized section and content) DATE CREATED AUTHOR 07/18/2019 [facility] DATE CREATED AUTHOR AUTHOR'S ORGANIZ ATION 01/18/2021 [facility] DATE CREATED AUTHOR AUTHOR'S ORGANIZ ATION 09/08/2023 [facility] DATE CREATED AUTHOR AUTHOR'S ORGANIZ ATION 02/03/2024 [facility] DATE CREATED AUTHOR AUTHOR'S ORGANIZ ATION 02/24/2024 [facility] Ordered Prescriptions (unrec ognized section and content) Prescription Sig Dispensed Refills Start Date End Da te ondansetron (ZOFRAN ODT) 4 MG disintegrating tablet Take 1 tablet by mouth every 8 hours as needed for Nausea or Vomiting 20 tablet 0 06/28/2020 07/18/2020 Prescription Sig Dispensed Refills Start Date End Da te mupirocin (BACTROBAN) 2 % ointment Apply topically 3 times daily. 22 g 0 10/23/2020 10/30/2020 HYDROcodone-acetaminoph en (NORCO) 5-325 MG per tabletIndications:Pain, dental Take 1 tablet by mouth every 6 hours as needed for Pain for up to 3 days. Intended supply: 3 days. Take lowest dose possible to manage pain 12 tablet 0 10/23/2020 10/26/2020 penicillin v potassium (VEETID) 500 MG tablet Take 1 tablet by mouth 3 times daily for 10 days 30 tablet 0 10/23/2020 11/02/2020 Prescription Sig Dispensed Refills Start Date End Da te cephALEXin (KEFLEX) 500 MG capsule Take 1 capsule by mouth 3 times daily for 7 days 21 capsule 02/01/2024 02/08/2024 ondansetron (ZOFRAN-ODT) 4 MG disintegrating tablet Take 1 tablet by mouth 3 times daily as needed for Nausea or Vomiting 20 tablet 02/01/2024 Scheduled Active and Recently Administ ered Medications (unrecognized section and content) Medication Order 02/10/2021 02/11/2021 02/12/2021 0.9 % sodium chloride bolus 1,000 mL (7.23 mL/kg), IntraVENous, at 1,000 mL/hr, Administer over 1 Hours, ONCE, On Mon02/12/21 at 1945, For 1 dose 194 (Due) SUMAtriptan (IMITREX) tablet 50 mg (COMPLETED) 50 mg, Oral, ONCE, On Mon02/12/21 at 1945, For 1 dose 194 (Given - Provid er: Pilar Duque RN) Scheduled Medication Order 06/25/2022 06/26/2022 06/27/2022 0.9 % sodium chloride bolus (COMPLETED) 1,000 mL (6.72 mL/kg), IntraVENous, at 495.9 mL/hr, Administer over 121 Minutes, ONCE, On Mon06/27/22 at 1245, For 1 dose 1310 (New Bag - Prov ider: Stacey Mayers)1456 (Stopped - Provider: Stacey Mayers) acetaminophen (TYLENOL) tablet 650 mg (COMPLETED) 650 mg, Oral, ONCE, 1 dose, On Mon06/27/22 at 1245, Maximum dose of acetaminophen is 4000 mg from all sources in 24 hours. 1310 (Given - Provid er: Stacey Mayers) diphenhydrAMINE (BENADRYL) injection 50 mg (COMPLETED) 50 mg, IntraVENous, ONCE, 1 dose, On Mon06/27/22 at 1245 1312 (Given - Provid er: Stacey Mayers) prochlorperazine (COMPAZINE) injection 10 mg (COMPLETED) 10 mg, IntraVENous, ONCE, 1 dose, On Mon06/27/22 at 1245 1317 (Given - Provid er: Stacey Mayers) PRN Medication Order 06/25/2022 06/26/2022 06/27/2022 iopamidol (ISOVUE-370) 76 % injection 75 mL (COMPLETED) 75 mL, IntraVENous, IMG ONCE PRN, 1 dose, Starting on Mon06/27/22 at 1315, Until Mon06/27/22 at 1329, Other 1329 (Given - Provid er: Rao De Souza) Scheduled Medication Order 01/30/2024 01/31/2024 02/01/2024 acetaminophen (TYLENOL) tablet 650 mg (COMPLETED) 650 mg, Oral, ONCE, 1 dose, On Mon01/31/24 at 2345, Maximum dose of acetaminophen is 4000 mg from all sources in 24 hours. 2347 (Given - Provider: Daniella Boles, PAPA) cephALEXin (KEFLEX) capsule 500 mg (COMPLETED) 500 mg, Oral, ONCE, 1 dose, On Mari 02/01/24 at 0100, Antimicrobial Indications: Urinary Tract Infection 0100 (Given - Provid er: Daniella Boles RN) fentaNYL (SUBLIMAZE) injection 25 mcg (COMPLETED) 25 mcg, IntraVENous, ONCE, 1 dose, On Mon01/31/24 at 2200, If oral and IV narcotics ordered, use oral first and only use IV if oral is ineffective or cannot take oral. Do Not give oral and IV within 1 hour of each other unless specifically ordered. 223 (Given - Provider: Daniella Boles, PAPA) ondansetron (ZOFRAN) injection 4 mg (COMPLETED) 4 mg, IntraVENous, ONCE, 1 dose, On Mon01/31/24 at 2200 223 (Given - Provider: Daniella Boles RN) sodium chloride 0.9 % bolus 1,000 mL (COMPLETED) 1,000 mL (7.11 mL/kg), IntraVENous, at 1,935.5 mL/hr, Administer over 31 Minutes, ONCE, On Mon01/31/24 at 2130, For 1 dose, For adult patients weighing > 55 kg (120 lbs.) and less than <50 years of age initiate 0.9NS at 500 mL/ hr. All bolus orders are to be given over 10 to 15 minutes 2213 (New Bag - Provider: Amanda Stern RN)2344 (Stopped - Provider: Daniella Boles RN) sodium chloride flush 0.9 % injection 3 mL(Linked Group 1) 3 mL, IntraVENous, EVERY 8 HOURS, First dose on Mon01/31/24 at 2130, Until Discontinued, Flush line with 3-5 mL 2236 (Given - Provider: Daniella Boles RN) 0530 (Due)1330 (Due)2130 (Due) PRN Medication Order 01/30/2024 01/31/2024 02/01/2024 iopamidol (ISOVUE-370) 76 % injection 75 mL (COMPLETED) 75 mL, IntraVENous, IMG ONCE PRN, 1 dose, Starting on Mon01/31/24 at 2238, Until Mon01/31/24 at 2243, Other 2243 (Given - Provider: Kaya aguilar Ohdavy) Linked Groups Order Group 1: Saline lock IV (COMPLETED) Routine, CONTINUOUS, Starting on Mon01/31/24 at 2130, Until Specified And sodium chloride flush 0.9 % injection 3 mLJump to med 3 mL, IntraVENous, EVERY 8 HOURS, First dose on Mon01/31/24 at 2130, Until Discontinued, Flush line with 3-5 mL Care Teams (unrecognized sec tion and content) Beauty Consultant Relationship Specialty Start Date End Date Might, Brianna Chavez APRN [facility] PCP - General Nurse Practitioner 06/16/16 Beauty Consultant Relationship Specialty Start Date End Date Might, Brianna Chavez APRN [facility] PCP - General Nurse Practitioner 06/16/16 Beauty Consultant Relationship Specialty Start Date End Date Might, Brianna Chavez APRN [facility] PCP - General Nurse Practitioner 06/16/16 Beauty Consultant Relationship Specialty Start Date End Date Might, Brianna Chavez APRN [facility] PCP - General Nurse Practitioner 06/16/16 Beauty Consultant Relationship Specialty Start Date End Date Might, Brianna Chavez APRN [facility] PCP - General Nurse Practitioner 06/16/16 Beauty Consultant Relationship Specialty Start Date End Date Might, Brianna Chavez APRN [facility] PCP - General Nurse Practitioner 06/16/16 Beauty Consultant Relationship Specialty Start Date End Date Might, Brianna KathyRUBIN CNP PCP - General Nurse Practitioner 06/16/16 Beauty Consultant Relationship Specialty Start Date End Date Might, RUBIN Doherty CNP PCP - General Nurse Practitioner 06/16/16 Beauty Consultant Relationship Specialty Start Date End Date Might, Brianna KathyRUBIN CNP PCP - General Nurse Practitioner 06/16/16 Beauty Consultant Relationship Specialty Start Date End Date Might, Brianna KathyRUBIN CNP PCP - General Nurse Practitioner 06/16/16 FOR RECORDS PERTAINING TO PATIENTS WHO ARE OR HAVE BEEN ENROLLED IN A CHEMICAL DEPENDENCY/SUBSTANCEABUSE PROGRAM, SOME INFORMATION MAY BE OMITTED. This clinical summary was aggregated from multiple sources. Caution should be exercised in using it in the provision of clinical care. This summary normalizes information from multiple sources, and as a consequence, information in this document may materially change the coding, format and clinical context of patient data. In addition, data may be omitted in some cases. CLINICAL DECISIONS SHOULD BE BASED ON THE PRIMARY CLINICAL RECORDS. [facility] provides no warranty or guarantee of the accuracy or completeness of information in this document.
--- NOTE | 2024-03-17 09:18 | PC.NURSE ---
Patient states was stepping on to stool and the stool collapsed and broke. Laceration on medial left foot. Bleeding controlled at this time.
--- NOTE | 2024-03-17 09:44 | ED_ITS ---
HPI - Extremity Problem General Chief complaint: Extremity Problem, Nontraumatic Stated complaint: FALL, LOWER LEFT EXTREMITY INJURY Time Seen by Provider: 03/17/24 09:14 Source: patient Mode of arrival: walk-in Limitations: no limitations History of Present Illness HPI Narrative: The patient is coming to us with a laceration to the left foot that she sustained after she was standing on a plastic stool trying to get something from a upper level and apparently the patient just had the stool slipped and hurt her left foot The patient denies any other injury Related Data Allergies Allergy/AdvReac Type Severity Reaction Status Date / Time ibuprofen Allergy Severe Verified 05/20/23 16:11 Review of Systems ROS Status of ROS 10 or more systems reviewed and unremark able except as noted in history and below PFSH PFSH Social History Smoking status: Never smoker Little interest or pleasure in doing things: not at all Feeling down, depressed, or hopeless: not at all Exam Narrative Exam Narrative: Nurses notes and vital signs reviewed and patient is not hypoxic. Examination of the left foot : On the medial aspect of the left foot the patient have a laceration slightly irregular but linear almost 2 cm no exposure of the underlying structures no foreign body and no vascular injury detected there is a minimal bleeding General: Well-appearing and in no apparent distress. Skin: Warm, dry, no pallor noted. No rash. Head: Normocephalic, atraumatic. Neck: Supple, non-tender. Eye: Pupils are equal, round and EOMI. No scleral icterus. Ears, Nose, Mouth, and Throat: TM are clear, no nasal mucosal hypertrophy. Oral mucosa is moist, no posterior oropharynx erythema, uvula is mid-line Cardiovascular: Regular Rate and Rhythm without murmur, gallop or rub. Respiratory: No accessory muscle use or respiratory distress. Lungs are clear to auscultation, no wheezing, rales or rhonchi Chest Wall: no tenderness Back: No midline thoracic or lumbar vertebral tenderness. No CVA tenderness Musculoskeletal: normal ROM, no calf or popliteal tenderness, no lower extremity edema/swelling GI: Abdomen is soft, non-distended. Normal bowel sounds. No masses appreciated. No tenderness to palpation. No rebound, guarding, or rigidity noted. Neurological: A&O x4. No cranial nerve dysfunction observed. No truncal ataxia. Moves all extremities. Sensation intact. Psychiatric: Cooperative and interactive. Normal mood and affect. Constitutional Vital Signs, click to edit/add: Last Vital Signs Temp 98.1 F 03/17/24 09:10 Pulse 84 03/17/24 10:42 Resp 18 03/17/24 10:42 BP 134/84 03/17/24 10:42 Pulse Ox 99 03/17/24 10:42 O2 Del Method Room Air 03/17/24 10:42 Course Vital Signs Vital signs: Vital Signs Temperature 98.1 F 03/17/24 09:10 Pulse Rate 67 03/17/24 09:10 Respiratory Rate 18 03/17/24 09:10 Blood Pressure 147/77 H 03/17/24 09:10 Pulse Oximetry 100 03/17/24 09:10 Oxygen Delivery Method Room Air 03/17/24 09:10 Temperature 98.1 F 03/17/24 09:10 Pulse Rate 84 03/17/24 10:42 Respiratory Rate 18 03/17/24 10:42 Blood Pressure 134/84 03/17/24 10:42 Pulse Oximetry 99 03/17/24 10:42 Oxygen Delivery Method Room Air 03/17/24 10:42 MDM - Extremity (Nontraumatic) MDM Narrative Medical decision making narrative: After cleaning the area thoroughly with normal saline and Vaseline the patient have the area infiltrated with 1% lidocaine almost 5 cc Patient had 3 stitiches of 3-O ethilon Wound care advised and dressing applied in addition to postop shoes Patient tetanus is up-to-date The patient wanted walker to help her for the next 2 days to help prevent the pain and I did provide her with prescription for a walker although it is not indicated except for resting the leg and elevating it The patient is to follow up with primary care physician in next 2-3 days or to return to the emergency department should any of the signs or symptoms worsen or new symptoms develop. The patient agrees with the following Diagnosis and Treatment plan and the patient will be discharged home. Discharge Plan Discharge Chief Complaint: Extremity Problem, Nontraumatic Clinical Impression: Laceration of foot Patient Disposition: Home, Self-Care Time of Disposition Decision: 10:36 Condition: Good Print Language: Slovenian Instructions: Care For Your Stitches (DC), Laceration (DC) Referrals: Physician,Non-Staff, MD [Primary Care Provider] - 1 week Discharge Date/Time: 03/17/24 10:44
[2024-03-17] MEDS: LIDOCAINE/EPINEPHRINE/TETRACAINE 3 ML GEL.PF.APP 1.5 ML TOPICAL (09:58)
[2024-03-17] MEDS: LIDOCAINE HCL 1% 100 MG/10 ML MDV INJ (09:59)
[2024-03-17] MEDS: BACITRACIN 0.9 GM PACKET 1 PACKET TOPICAL (10:35)
[2024-03-17 10:42] VITALS: BP 134/84; PULSE 84; O2SAT 99
== END 2024-03-17 10:44 | disposition home or self-care (01) ==
PROVIDERS: Emergency Provider Emergency Medicine
DX: S91.312A Laceration without foreign body, left foot, initial encounter (principal); X58.XXXA Exposure to other specified factors, initial encounter
CPT/HCPCS: 12001; 99282

== ENCOUNTER 2024-03-24 14:08 | Emergency (ER) | payer OTHER, SELFPAY ==
[2024-03-24 14:11] VITALS: BP 123/79; PULSE 76; TEMP 37; O2SAT 96; BMI 55.4
--- OUTSIDE RECORDS SUMMARY | 2024-03-24 14:15 | XMS_ITS | CCD ---
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 Name Role Phone Might, Brianna Chavez Primary Care Provider AL-BRENDA AUSTIN A Referring Unavailable MIGHT, BRIANNA Chavez Primary Care Unavailable Might, Brianna Chavez Primary Care Provider [phone] MightBrianna Primary Care Provider [phone] MightBrianna Primary Care Provider [phone] Might DEEP FAT COOK FRY - CORN MILLERBrianna Primary Care Provider Kaye Kruse Primary Care Physician DR CRAIG Cantor Admitting Unavailable ERNIE FLORES Consulting Unavailable DR CRAIG BUSTILLO Attending Unavailable PING OWENS Consulting Unavailable Might DEEP FAT COOK FRY - CORN MILLERBrianna Primary Care Provider Might DEEP FAT COOK FRY - CORN MILLER, Brianna W Primary Care Provider Might DEEP FAT COOK FRY - CORN MILLER, Brianna W Primary Care Provider Might DEEP FAT COOK FRY - CORN MILLERBrianna W Primary Care Provider Nithin Zee Attending Unavailab le Nithin Zee Admitting Unavailab le Unavailable Primary Care Provider Unavailabl e Might DEEP FAT COOK FRY - CORN MILLERBrianna W Primary Care Provider MIGHT, BRIANNA Chavez Primary Care Unavailable MIGHT, BRIANNA Chavez Primary Care Unavailable JESSICA CHAVES Attending Unavailable MIGHTBRIANNA Primary Care Unavailable JEN HELMS Referring Unavailable MIGHT, BRIANNA Chavez Primary Care Unavailable BRADLY MCCAIN Referring Unavailable MIGHT, BRIANNA Chavez Primary Care Unavailable MIGHT, BRIANNA Chavez Primary Care Unavailable AL-NSTABBY, MOHMASHA A Referring Unavailable AL-BRENDA AUSTIN A Referring Unavailable MIGHT, BRIANNA Chavez Primary Care Unavailable MIGHT, BRIANNA Chavez Primary Care Unavailable MIGHT, BRIANNA W Referring Unavailable FLORA MOORE Referring Unavailable MIGHT, BRIANNA W Primary Care Unavailable RAUL KALE Maurice Attending Unavailable MIGHT, BRIANNA W Primary Care Unavailable JOVAN ALBARRAN Attending Unavailable MIGHT, BRIANNA W Primary Care Unavailable WAYNE JOSEPH Referring Unavailable SIGALA, JANELL Ferrara Attending Unavailable WAYNE JOSEPH Attending Unavailable SELF, SELF Referring Unavailable SIGALA, RAYGAN L Attending Unavailable SIGALA, RAYGAN L Referring Unavailable JEAN PAUL ALMANZAR Attending Unavailable SIGALA, RAYGAN L Referring Unavailable SIGALA, RAYGAN L Referring Unavailable SIGALA, RAYGAN L Attending Unavailable Allergies Allergy Classification Reported Allergen(s) Allergy Type Date of Onset Reaction(s) Facility Bee/Wasp/Ant Venom (8 sources) bee venom Substance Allergy 7 Anaphylaxis [facility] Latex (8 sources) Latex Substance Allergy 4 Hives, Itching, Swelling [facility] Saccharin (7 sources) Saccharin Drug Allergy 8 Other (See Comments) [facility] Work Phone: (20 sources) bee venom Propensity to adverse reactions to drug 7 Anaphylaxis, Swelling [place], [place] (20 sources) Latex Propensity to adverse reactions to drug 4 Hives, Itching, Swelling [place] (20 sources) Saccharin Drug Allergy 8 Other (See Comments) [place] (20 sources) Aspartame And Phenylalanine Propensity to adverse reactions to drug 8 Other (See Comments) [place] (20 sources) Flavoring Agent Propensity to adverse reactions to drug 8 Other (See Comments), Nausea and Vomiting [place] (20 sources) Sucralose Propensity to adverse reactions to drug 8 Other (See Comments) [place] (1 source) Latex Drug allergy (disorder) 1 [facility] (2 sources) Ibuprofen Drug Allergy 3 [facility] (5 sources) Propofol Drug Allergy 4 [facility] (5 sources) Wound Dressing Adhesive Propensity to adverse reactions to drug 4 Rash, Swelling [facility] Medications Current Medications Medication Drug [...] pain 10 tablet 0 04/07/2019 04/10/2019 Active [id number] 200 actuat albuterol 0.09 mg/actuat metered dose inhaler (2 sources) beta2-Adrenergic Agonist Start: 05-01-2023 take 2 puff(s) by mouth four times daily for wheezing albuterol sulfate HFA (PROVENTIL;VENTOLIN;PROAIR) 108 (90 Base) MCG/ACT inhaler inhale 2 puffs by mouth and INTO THE LUNGS four times a day if needed for wheezing 8.5 g 05/01/2023 Active amitriptyline hydrochloride 25 mg oral tablet (16 sources) Tricyclic Antidepressant Start: 07-27-2023 take 1 [...] every week vitamin D (ERGOCALCIFEROL) 1.25 MG (99544 UT) CAPS capsule Take 1 capsule by mouth once a week 12 capsule 1 10/01/2019 Active Start: 07-18-2019 take 1 capsule by mo uth every week vitamin D (ERGOCALCIFEROL) 1.25 MG (12831 UT) CAPS capsule Take 1 capsule by mouth once a week 12 capsule 1 07/18/2019 Active etodolac 400 mg oral tablet (3 sources) Nonsteroidal Anti-inflammatory Drug Start: 11-13-2019 take 1 tablet by mouth twice daily etodolac (LODINE) 400 MG tablet Take 1 tablet by mouth 2 times daily 30 tablet 0 11/13/2019 Active FLUoxetine 10 mg oral capsule (7 sources) Serotonin Reuptake Inhibitor Start: 03-20-2023 take [...] 11/13/2019 Active lisinopril 20 mg oral tablet (7 sources) Angiotensin Converting Enzyme Inhibitor Start: 08-08-2023 [...] route as needed (back pain) 10 each 5 11/25/2020 Active Start: 11-25-2020 Nerve Stimulat or [...] Polyene Antifungal Start: 07-24-2023 nystatin (M YCOSTATIN) 272491 UNIT/GM ointment Apply topically 2 times daily. 30 g 07/24/2023 Active Start: 01-03-2022 nystatin (MYCO STATIN) 835282 UNIT/GM ointment Indications: Candidal intertrigo Apply topically 2 times daily. 30 g 0 01/03/2022 Active Start: 11-25-2020 nystatin (MYCO STATIN) 256481 UNIT/GM cream Apply topically 2 times daily. 30 g 0 11/25/2020 Active Start: 11-03-2019 nystatin (MYCO STATIN) 674031 UNIT/GM cream Apply topically 2 times daily. [...] tablet 0 10/23/2020 11/02/2020 Active phentermine hydrochloride 30 mg oral capsule (7 sources) Sympathomimetic Amine Anorectic Start: 03-21-2024 End: 04-21-2024 take 1 capsule by mouth once daily phentermine 30 MG capsule Indications: Morbid obesity with body mass index of 50 or higher Take 1 capsule by mouth daily. 30 capsule 03/22/2024 04/21/2024 Active Start: 02-22-2024 End: 03-23-2024 take 1 tablet by mouth once daily before breakfast phentermine 37.5 MG tablet Indications: Morbid obesity with body mass index of 50 or higher Take 1 tablet by mouth every morning before breakfast. 30 tablet 02/22/2024 03/21/2024 Discontinued (Dose adjustment (suppress cancel msg)) polymyxin b 07176 unt/ml / trimethoprim 1 mg/ml ophthalmic solution (1 source) Dihydrofolate Reductase Inhibitor Antibacterial, Polymyxin-class Antibacterial Start: 06-20-2022 End: 06-30-2022 take 1 drop(s) into the eye(s) every four hours trimethoprim-polymyxin b (POLYTRIM) 56987-2.1 UNIT/ML-% ophthalmic solution Place 1 drop into [...] Active propranolol hydrochloride 20 mg oral tablet (16 sources) beta-Adrenergic Patrick Start: 01-27-2021 take 1 [...] take 1 tablet by mouth twice daily sulfamethoxazole-trimetho prim (BACTRIM DS;SEPTRA DS) 800-160 MG per tablet Take 1 tablet by mouth 2 times daily for 7 days 14 tablet 0 04/07/2019 04/14/2019 Active SUMAtriptan 50 mg oral tablet (10 sources) Serotonin-1b and Serotonin-1d Receptor Agonist Start: 02-12-2021 SUMAtriptan (IMITREX) tablet 50 mg Start: 01-11-2021 take 1 tablet by caesar th once as needed SUMAtriptan (IMITREX) 50 MG tablet Take 1 tablet by mouth once as needed for Migraine 9 tablet 3 06/16/2022 Active SYRINGE-NEEDLE, DISP, 3 ML ( B-D INTEGRA SYRINGE) 22G X 1-1/2 3 ML Misc (5 sources) Tens Unit MISC (17 sources) Start: 11-25-2020 Tens Unit [facility] Indications: Osteoarthritis of spine, unspecified spinal osteoarthritis complication status, unspecified spinal region by Does not apply route 1 each 0 11/25/2020 Active Start: 11-25-2020 Tens Unit [facility] Indications: Osteoarthritis of spine, unspecified spinal osteoarthritis complication status, unspecified spinal region , Chronic bilateral low back pain without sciatica by Does not apply route 1 each 0 11/25/2020 Active Start: 06-11-2020 Tens Unit [facility] Indications: Chronic bilateral low back pain without [...] Start: 06-05-2023 take 1 tablet by caesar th once daily at bedtime tiZANidine (ZANAFLEX) 4 MG tablet Indications: Chronic bilateral low back pain without sciatica take 1 tablet by mouth every morning and at bedtime 60 tablet 5 06/05/2023 Active Start: 05-27-2022 take 1 tablet by caesar th twice daily for muscle spasms tiZANidine (ZANAFLEX) 4 MG tablet Indications: Chronic bilateral low back pain without sciatica take 1 tablet by mouth twice a day if needed for SPASM(S) 60 tablet 2 05/27/2022 Active Start: 07-14-2020 take 1 tablet by caesar th twice daily for muscle spasms tiZANidine (ZANAFLEX) 4 MG tablet Indications: Chronic bilateral low back pain without sciatica take 1 tablet by mouth twice a day if needed for SPASM(S) 180 tablet 0 10/19/2021 Active Start: 03-19-2020 take 1 tablet by [...] 07/26/2018 Active take 1 capsule by mo [facility] twice daily as needed tizanidine 4 mg [...] Start: 06-11-2020 take 1 capsule by mo uth once daily venlafaxine (EFFEXOR XR) 150 MG extended release capsule Indications: Anxiety and depression take 1 capsules by mouth once daily 90 capsule 1 06/11/2020 Active Start: 06-11-2020 take 1 capsule by mo uth once [...] Start: 07-26-2018 take 1 capsule by mo uth once daily venlafaxine (EFFEXOR XR) 150 MG extended release capsule Indications: Anxiety and depression Take 1 capsule by mouth daily 90 capsule 3 07/26/2018 Active Start: 02-06-2018 take 1 capsule by mo [facility] once daily venlafaxine (EFFEXOR XR) 75 MG extended release capsule Indications: Anxiety and depression take 1 capsule by mouth once daily TAKE WITH VENLAFAXINE 150 MG FOR A TOTAL DOSE OF 225 MGS 90 capsule 3 02/06/2018 Active take 1 capsule by mo [facility] twice daily venlafaxine 150 MG Cap SR 24HR capsule XR Take 1 capsule by mouth 2 times daily. Active take 1 tablet by caesar once daily at mealtime venlafaxine 75 mg tablet take 1 tablet (75 mg) by oral route 1times per day with food take 1 tablet by caesar once daily at mealtime venlafaxine ER 150 [...] [Unspecified abdominal pain] Onset: 11-13-2019 11-13-2019 Episodic Administrative/social admission (1 source) Patient encounter status; Translations: [Dietary counseling and surveillance] 03-21-2024 Episodic Allergic reactions (2 sources) Atopic dermatitis; Translations: [Intrinsic (allergic) eczema] Onset: 07-21-2022 07-21-2022 Chronic Anxiety disorders (20 sources) Anxiety; Translations: [Mixed anxiety and depressive disorder] Onset: 06-20-2016 03-19-2018 Chronic Deficiency and other anemia (1 source) Anemia, unspecified Episodic Diabetes mellitus without complication (4 sources) Type 2 diabetes mellitus without complication; [...] Chronic Other nutritional; endocrine; and metabolic disorders (2 sources) Body mass index 40+ - severely obese; [...] Test Name Value Interpretation Reference Range Facility CMP FASTINGon 03-21-2024 A:G RATIO 1.3 RATIO Normal 1.3-2.2 [facility] Comment on above: Performed By: #### C MPF #### [place] [address] ALBUMIN 4.2 G/dl Normal 3.5-5.0 [facility] Comment on above: Performed By: #### C MPF #### Testing performed at [place] [id number] ALP [Catalytic activity/Vol] 69 U/L Normal 38-126 [facility] Comment on above: Performed By: #### C MPF #### Testing performed at [address] [address] ALT [Catalytic activity/Vol] 14 U/L Normal <35 [facility] Comment on above: Performed By: #### C MPF #### Testing performed at [place] [id number] AST [Catalytic activity/Vol] 22 U/L Normal 14-36 [facility] Comment on above: Performed By: #### C MPF #### [place] [address] Bilirubin [Mass/Vol] 0.5 mg/dL Normal 0.2-1.3 [facility] Comment on above: Performed By: #### C MPF #### Testing performed at [address] [address] Calcium [Mass/Vol] 8.9 mg/dL Normal 8.4-10.2 [facility] Comment on above: Performed By: #### C MPF #### Testing performed at [place] [id number] Chloride [Moles/Vol] 103 mmol/L Normal 98-107 [facility] Comment on above: Result Comment: Mary fernandez note: Triglyceride levels of 600mg/dL or higher may positively bias chloride results by approximately 2.1 mmol Performed By: #### C MPF #### [place] [address] CO2 [Moles/Vol] 21 mmol/L Low 22-30 [facility] Comment on above: Performed By: #### C MPF #### Testing performed at [address] [address] Creatinine [Mass/Vol] 0.80 mg/dL Normal 0.7-1.2 [facility] Comment on above: Performed By: #### C MPF #### Testing performed at [address] [address] EST. GFR, 99 ml/min/1.73sq.m [facility] Comment on above: Performed By: #### C MPF #### Testing performed at [address] [address] EST. GFR,Non 82 ml/min/1.73sq.m [facility] Comment on above: Performed By: #### C MPF #### Testing performed at [address] [address] GFR Information Average GFR for 40-49 years old = 99. Normal [facility] Comment on above: Result Comment: Fire Control Officer godfrey Kidney disease, GFR = <60. Kidney failure, GFR = <15. The GFR estimate is not adjusted for extreme body surface area or acute process, nor has it been validated for women or ethnic groups other than and . Testing performed at [place] [address] Performed By: #### C MPF #### [place] [address] Glucose [Mass/Vol] 89 mg/dL Normal 70-100 [facility] Comment on above: Result Comment: NORMAL <100 mg/dL PREDIABETES 101-126 mg/dL DIABETES 126 mg/dL or higher Performed By: #### C MPF #### [place] [address] Potassium [Moles/Vol] 4.0 mmol/L Normal 3.5-5.1 [facility] Comment on above: Performed By: #### C MPF #### [place] [address] Protein [Mass/Vol] 7.4 g/dL Normal 6.3-8.2 [facility] Comment on above: Performed By: #### C MPF #### [place] [address] Sodium [Moles/Vol] 134 mmol/L Low 137-145 [facility] Comment on above: Performed By: #### C MPF #### [place] [address] Urea nitrogen [Mass/Vol] 18 mg/dL Normal 7-20 [facility] Comment on above: Performed By: #### C MPF #### [place] [address] HEMOGLOBIN A1Con 03-21-2024 Glucose [Mass/Vol] 85 mg/dL Normal [facility] Comment on above: Result Comment: Test ing performed at [place] [address] Performed By: #### H A1CT #### [place] [address] HbA1c (Bld) [Mass fraction] 4.6 % Normal 0-6 [facility] Comment on above: Result Comment: NORMAL <5.7% PREDIABETES 5.7-6.4% DIABETES 6.5% OR HIGHER Performed By: #### H A1CT #### Testing performed at [address] [address] LIPID PROFILEon 03-21-2024 Cholesterol [Mass/Vol] 157 mg/dL Normal 107-217 [facility] Comment on above: Performed By: #### L IP2 #### Testing performed at [address] [address] Cholesterol in HDL [Mass/Vol] 41 mg/dL Normal 33-75 [facility] Comment on above: Performed By: #### L IP2 #### Testing performed at [place] [id number] Cholesterol in LDL [Mass/Vol] 95 mg/dL Normal <100 [facility] Comment on above: Performed By: #### L IP2 #### Testing performed at [place] [id number] Cholesterol in VLDL [Mass/Vol] 21 mg/dL Normal 5.0-25 [facility] Comment on above: Performed By: #### L IP2 #### Testing performed at [address] [address] Cholesterol.total/Chol esterol in HDL [Mass ratio] 3.83 {ratio} Normal [facility] Comment on above: Result Comment: RISK TOTAL/HDL RATIO MEN WOMEN 1/2 AVERAGE 3.43 3.27 AVERAGE 4.97 4.44 2X AVERAGE 9.55 7.05 3X AVERAGE 23.99 11.04 Testing performed at [place] [address] Performed By: #### L IP2 #### Testing performed at [address] [address] Triglyceride [Mass/Vol] 105 mg/dL Normal 0-150 [facility] Comment on above: Performed By: #### L IP2 #### Testing performed at [address] [address] Laboratory - Chemistry and C hemistry - challengeon 03-21-2024 Cholesterol [Mass/Vol] 157 mg/dL [facility] Cholesterol in HDL [Mass/Vol] 41 mg/dL [facility] Cholesterol in LDL [Mass/Vol] 95 mg/dL NINF [facility] Cholesterol in VLDL [Mass/Vol] 21 mg/dL [facility] Cholesterol.total/Chol esterol in HDL [Mass ratio] 3.83 {ratio} RATIO [facility] Comment on above: RISK TOTAL/HDL RATIO MEN WOMEN 1/2 AVERAGE 3.43 3.27 AVERAGE 4.97 4.44 2X AVERAGE 9.55 7.05 3X AVERAGE 23.99 11.04 Testing performed at [place], [place] [address] Triglyceride [Mass/Vol] 105 mg/dL [facility] No Panel Informationon 03-21 [facility] CBC with Diffon 01-31-2024 Basophils (Bld) [#/Vol] 0.06 10*3/uL [facility] Basophils/100 WBC (Bld) 1 % 0 - 2 % [facility] Eosinophils (Bld) [#/Vol] 0.26 10*3/uL [facility] Eosinophils/100 WBC (Bld) 2 % 1 - 4 % [facility] Erythrocyte distribution width (RBC) [Ratio] 13.6 % 11.8 - 14.4 % [facility] Hematocrit (Bld) [Volume fraction] 40.2 % 36.3 - 47.1 % [facility] Hemoglobin (Bld) [Mass/Vol] 13.4 g/dL 11.9 - 15.1 g/dL [facility] Immature granulocytes (Bld) [#/Vol] 0.05 10*3/uL [facility] Immature granulocytes/100 WBC (Bld) 0 % [address] [facility] Interpretation and review of laboratory results Abnormal [facility] Lymphocytes/100 WBC (Bld) 27 % 24 - 43 % [facility] Lymphocytes/100 WBC (Bld) 3.15 % [facility] MCH (RBC) [Entitic mass] 28.9 pg 25.2 - 33.5 pg [facility] MCHC (RBC) [Mass/Vol] 33.3 g/dL 28.4 - 34.8 g/dL [facility] MCV (RBC) [Entitic vol] 86.6 fL 82.6 - 102.[address] [facility] Monocytes/100 WBC (Bld) 6 % 3 - 12 % [facility] Monocytes/100 WBC (Bld) 0.71 % [facility] Neutrophils/100 WBC (Bld) 64 % 36 - 65 % [facility] Nucleated RBC/100 WBC (Bld) [Ratio] 0.0 % 0.0 per [address] [facility] Platelet mean volume (Bld) [Entitic vol] 11.2 fL 8.1 - 13.[address] [facility] Platelets (Bld) [#/Vol] 440 10*3/uL [facility] RBC (Bld) [#/Vol] 4.64 10*6/uL 3.95 - 5.1 1 m/uL [facility] Segmented neutrophils/100 WBC (Bld) 7.57 % [facility] WBC other (Bld) [#/Vol] 11.8 High [facility] Abs. Basophil 0.06 k/uL Normal 0.00-0.20 [facility] Comment on above: Performed By: #### T MANISH ALVA, CP, LIP ####[address] , [facility] Lab Director: Marcelino Lopez MD Abs.Imm.Granulocyte 0.05 k/uL Normal 0.00-0.[address] [facility] Comment on above: Performed By: #### T ARTIE, MANISH, CP, LIP ####[facility] [place] , [place] [id number] Lab Director: Marcelino Lopez MD Abs.Neutrophil (Seg) 7.57 k/uL Normal 1.50-8.10 [facility] Comment on above: Performed By: #### T ARTIE, CDP, CP, LIP ####[facility] [place] , [place] [id number] Lab Director: Marcelino Lopez MD Basophils/100 WBC (Bld) 1 % Normal 0-[address] [facility] Comment on above: Performed By: #### T ROPI, CDP, CP, LIP ####[address] , [place] [id number] Lab Director: Marcelino Lopez MD Eosinophils (Bld) [#/Vol] 0.26 10*3/uL Normal 0.00-0.[address] [facility] Comment on above: Performed By: #### T ROPI, CDP, CP, LIP ####[address] [place], [place] [id number] lab Director: Marcelino Lopez MD Eosinophils/100 WBC (Bld) 2 % Normal 1-[address] [facility] Comment on above: Performed By: #### T ROPI, CDP, CP, LIP ####[address] , [id number] Lab Director: Marcelino Lopez MD Erythrocyte distribution width (RBC) [Ratio] 13.6 % Normal 11.8-14.[address] [facility] Comment on above: Performed By: #### T ROPI, CDP, CP, LIP ####[address] , [place] [id number] Lab Director: Marcelino Lopez MD Hematocrit (Bld) [Volume fraction] 40.2 % Normal 36.3-47.[address] [facility] Comment on above: Performed By: #### T ROPI, CDP, CP, LIP ####[address] , [place] [id number] Lab Director: Marcelino Lopez MD Hemoglobin (Bld) [Mass/Vol] 13.4 g/dL Normal 11.9-15.[address] [facility] Comment on above: Performed By: #### T ROPI, CDP, CP, LIP ####[address] , [place] [id number] lab Director: Marcelino Lopez MD Immature granulocytes/100 WBC (Bld) 0 % Normal [address] [facility] Comment on above: Performed By: #### T ROPI, CDP, CP, LIP ####[address] , [facility] lab Director: Marcelino Lopez MD Lymphocytes (Bld) [#/Vol] 3.15 10*3/uL Normal 1.10-3.[address] [facility] Comment on above: Performed By: #### T ROPI, CDP, CP, LIP ####[address] , [facility] lab Director: Marcelino Lopez MD Lymphocytes/100 WBC (Bld) 27 % Normal 24-[address] [facility] Comment on above: Performed By: #### T ROPI, CDP, CP, LIP ####[address] , [facility] lab Director: Marcelino Lopez MD MCH (RBC) [Entitic mass] 28.9 pg Normal 25.2-33.[address] [facility] Comment on above: Performed By: #### T ROPI, CDP, CP, LIP ####[address] , [facility] lab Director: Marcelino Lopez MD MCHC (RBC) [Mass/Vol] 33.3 g/dL Normal 28.4-34.8 [facility] Comment on above: Performed By: #### T ROPI, CDP, CP, LIP ####[address] , [id number] Lab Director: Marcelino Lopez MD MCV (RBC) [Entitic vol] 86.6 fL Normal 82.6-102.[address] [facility] Comment on above: Performed By: #### T ROPI, CDP, CP, LIP ####[address] [place] [id number] Lab Director: Marcelino Lopez MD Monocytes (Bld) [#/Vol] 0.71 10*3/uL Normal 0.10-1.[address] [facility] Comment on above: Performed By: #### T ROPI, CDP, CP, LIP ####[address] , [place] [phone] Director: Marcelino Lopez MD Monocytes/100 WBC (Bld) 6 % Normal 3-[address] [facility] Comment on above: Performed By: #### T ROPI, CDP, CP, LIP ####[address] [place], [place] [address])[phone] Director: Marcelino Lopez MD Neutrophil (Seg) 64 % Normal 36-65 [facility] Comment on above: Performed By: #### T ROPI, CDP, CP, LIP ####[address] , [facility]83[facility])[phone] Director: Marcelino Lopez MD NRBC Automated 0.0 per 100 WBC Normal 0.[address] [facility] Comment on above: Performed By: #### T ROPI, CDP, CP, LIP ####[address] , [place] [phone] Director: Marcelino Lopez MD Platelet mean volume (Bld) [Entitic vol] 11.2 fL Normal 8.1-13.[address] [facility] Comment on above: Performed By: #### T ROPI, CDP, CP, LIP ####[address] , [place] [phone] Director: Marcelino Lopez MD Platelets (Bld) [#/Vol] 440 10*3/uL Normal 138-[address] [facility] Comment on above: Performed By: #### T ROPI, CDP, CP, LIP ####[address] [place] [address] Lab Director: Marcelino Lopez MD RBC (Bld) [#/Vol] 4.64 10*6/uL Normal 3.95-5.[address] [facility] Comment on above: Performed By: #### T MANISH ALVA, CP, LIP ####[facility] [place] [address] lab Director: Marcelino Lopez MD WBC (Bld) [#/Vol] 11.8 10*3/uL High 3.5-11.[address] [facility] Comment on above: Performed By: #### T MANISH ALVA, CP, LIP ####[facility] [address] [place] [address] lab Director: Marcelino Lopez MD [facility] 01-31-2024 Albumin [Mass/Vol] 4.3 g/dL 3.5 - 5.2 g/dL [facility] Albumin/Globulin [Mass ratio] 1.2 {ratio} 1.0 - 2.[address] [facility] ALP [Catalytic activity/Vol] 100 U/L 35 - 104 U/L [facility] ALT [Catalytic activity/Vol] 9 U/L Low 10 - 35 U/L [facility] Anion gap [Moles/Vol] 13 mmol/L 9 - 16 mmol/L [facility] AST [Catalytic activity/Vol] 23 U/L 10 - 35 U/L [facility] Bilirubin [Mass/Vol] 0.3 mg/dL 0.00 - 1.20 mg/dL [facility] Calcium [Mass/Vol] 9.3 mg/dL 8.6 - 10. 4 mg/dL [facility] Chloride [Moles/Vol] 98 mmol/L 98 - 10 7 mmol/L [facility] CO2 [Moles/Vol] 27 mmol/L 20 - 31 mmol/L [facility] Creatinine [Mass/Vol] 1.2 mg/dL High 0.50 - 0.90 mg/dL [facility] Est, Glom Filt Rate 56 Low - PINF [facility] Comment on above: These results are [...] [Mass/Vol] 93 mg/dL 74 - 99 mg/dL [facility] Potassium [Moles/Vol] 4.0 mmol/L 3.7 - 5.3 mmol/L [facility] Protein [Mass/Vol] 8.0 g/dL 6.6 - 8.7 g/dL [facility] Sodium [Moles/Vol] 138 mmol/L 136 - 145 mmol/L [facility] truedash Urea nitrogen [Mass/Vol] 13 mg/dL 6 - 20 mg/dL [facility] truedash Urea nitrogen/Creatinine [Mass ratio] 11 mg/mg 9 - 20 [facility] truedash CT ABDOMEN PELVIS W IV CONTR Mazin [...] COMPARISON: 11/13/2019 HISTORY: ORDERING SYSTEM PROVIDED HISTORY: [facility] pain TECHNOLOGIST PROVIDED HISTORY: [facility] pain Decision Support Exception - unselect if [...] Monique Bains MD 01/31/24 Final result Normal [facility] CT Abdomen and Pelvis W cont [...] COMPARISON: 11/13/2019 HISTORY: ORDERING SYSTEM PROVIDED HISTORY: [facility] pain TECHNOLOGIST PROVIDED HISTORY: [facility] pain Decision Support Exception - unselect if [...] the pelvis. Osseous: Spondylosis. Old rib fractures. [facility] RIS CONSOLIDATED Monique Bains MD - 01/31/2024 [...] Old rib fractures. IMPRESSION: No acute process [facility] Radiology Study observation (narrative) [facility] CT Abdomen and Pelvis W cont rast IVOrdered By: Monique Bains on 01-31-[address] [facility] Work Phone: Comp Metabolic Profon 2023 Albumin [Mass/Vol] 4.3 g/dL Normal 3.5-5.[address] [facility] Comment on above: Performed By: #### T ARTIE, CDP, CP, LIP ####[address] [place] [address] Lab Director: Marcelino Lopez MD Albumin/Glob Ratio 1.2 Normal 1.0-2.[address] [facility] Comment on above: Performed By: #### T ARTIE, CDP, CP, LIP ####[address] [place] [address] Lab Director: Marcelino Lopez MD Alkaline Phos 100 U/L Normal 35-104 [facility] Comment on above: Performed By: #### T ROPI, CDP, CP, LIP ####[facility] [place] [address] Lab Director: Marcelino Lopez MD ALT [Catalytic activity/Vol] 9 U/L Low 10-[address] [facility] Comment on above: Performed By: #### T ARTIE, CDP, CP, LIP ####[address] , [place] 439[address]83 Lab Director: Marcelino Lopez MD Anion gap [Moles/Vol] 13 mmol/L Normal 9-16 [facility] Comment on above: Performed By: #### T ROPI, CDP, CP, LIP ####[facility] [place] , [place] [id number] Lab Director: Marcelino Lopez MD AST [Catalytic activity/Vol] 23 U/L Normal 10-[address] [facility] Comment on above: Performed By: #### T ROPI, CDP, CP, LIP ####[facility] [place] , [place] 0114683 lab Director: Marcelino Lopez MD Bilirubin [Mass/Vol] 0.3 mg/dL Normal 0.00-1.20 [facility] Comment on above: Performed By: #### T ROPI, CDP, CP, LIP ####[address] , [place] 6329783 lab Director: Marcelino Lopze MD BUN/CRE Ratio 11 Normal 9-20 [facility] Comment on above: Performed By: #### T ROPI, CDP, CP, LIP ####[address] , [place] [phone] lab Director: Marcelino Lopez MD Calcium [Mass/Vol] 9.3 mg/dL Normal 8.6-10.[address] [facility] Comment on above: Performed By: #### T ROPI, CDP, CP, LIP ####[facility] [place] , [place] [phone] lab Director: Marcelino Lopez MD Chloride [Moles/Vol] 98 mmol/L Normal 98-107 [facility] Comment on above: Performed By: #### T ROPI, CDP, CP, LIP ####[facility] [place] , [place] 5239783 lab Director: Marcelino Lopez MD CO2 [Moles/Vol] 27 mmol/L Normal 20-31 [facility] Comment on above: Performed By: #### T ROPI, CDP, CP, LIP ####[facility] [place] , [place] 8248383 Lab Director: Marcelino Lopez MD Creatinine [Mass/Vol] 1.2 mg/dL High 0.50-0.90 [facility] Comment on above: Performed By: #### T ROPI, CDP, CP, LIP ####[facility] [place] , [place] 0812983 lab Director: Marcelino Lopez MD GFR/1.73 sq M.predicted among non-blacks MDRD (S/P/Bld) [Vol rate/Area] 56 mL/min/{1.73_m2} Low >[address] [facility] Comment on above: Result Comment: These [...] By: #### T ROPI, CDP, CP, LIP ####[address] , [place] [address]3 Lab Director: Marcelino Lopez MD Glucose [Mass/Vol] 93 mg/dL Normal 74-[address] [facility] Comment on above: Performed By: #### T ROPI, CDP, CP, LIP ####[address] , [place] 6923683 lab Director: Marcelino Lopez MD Potassium [Moles/Vol] 4.0 mmol/L Normal 3.7-5.3 [facility] Comment on above: Performed By: #### T ROPI, CDP, CP, LIP ####[address] , [place] 6693583 lab Director: Marcelino Lopez MD Protein [Mass/Vol] 8.0 g/dL Normal 6.6-8.[address] [facility] Comment on above: Performed By: #### T MANISH ALVA, CP, LIP ####[facility] [place], [place] [address]83 lab Director: Marcelino Lopez MD Sodium [Moles/Vol] 138 mmol/L Normal 136-[address] [facility] Comment on above: Performed By: #### T MANISH ALVA, CP, LIP ####[facility] [place], [place] 4079383 lab Director: Marcelino Lopez MD Urea nitrogen [Mass/Vol] 13 mg/dL Normal 6-[address] [facility] Comment on above: Performed By: #### T MANISH ALVA, CP, LIP ####[facility] [place], [place] [phone] lab Director: Marcelino Lopez MD Lipaseon 01-31-2024 Lipase [Catalytic activity/Vol] 12 U/L Low 13 - 60 U/L [facility] Lipase [Catalytic activity/Vol] 12 U/L Low 13-[address] [facility] Comment on above: Performed By: #### T ARTIE, MANISH, CP, LIP ####[address] [place], [place] 404[address]483 lab Director: Marcelino Lopez MD Microscopic Urinalysison Bacteria LM Ql (Urine sed) 3+ Abnormal None [facility] Casts LM.LPF (Urine sed) [#/Area] 2 TO 5 HYALINE /LPF [facility] Epithelial cells LM.HPF (Urine sed) [#/Area] 10 TO [address] [facility] Interpretation and review of laboratory results Abnormal [facility] RBC LM.HPF (Urine sed) [#/Area] 2 TO [address] [facility] WBC LM.HPF (Urine sed) [#/Area] 2 TO 5 [facility] No Panel Informationon 01-30 Interpretation and review of laboratory results Abnormal [facility] Troponinon 01-31-2024 Troponin I.cardiac High sensitivity method [Mass/Vol] ng/L 0 - 14 ng/L [facility] Comment on above: High Sensitivity Tro ponin values cannot be compared with other Troponin methodologies. Troponin, High Sens <6 Normal 0-[address] [facility] Comment on above: Result Comment: High Sensitivity Troponin values cannot be compared with other Troponin methodologies. Performed By: #### T ROPI, CDP, CP, LIP ####[facility] [place] , [place] [phone] Lab Director: Marcelino Lopez MD UA w/Reflex Cultureon 2023 Bilirubin, SemiQt,Ur Negative Normal NEG [facility] Comment on above: Performed By: #### U MICAO, UAX #### [facility] [address] [place], [place] [phone] Brewery Pumper: Marcelino Lopez MD Blood, Urine TRACE Abnormal NEG [facility] Comment on above: Performed By: #### U MICAO, UAX #### [facility] [address] [place] [address] [place] [place], [place] 6404183 Brewery Pumper: Marcelino Lopez MD Clarity (U) Clear Normal CLEAR [facility] Comment on above: Performed By: #### U MICAO, UAX #### [facility] [address] [place], [place] 0199483 Brewery Pumper: Marcelino Lopez MD Color (U) Yellow Normal YEL [facility] Comment on above: Performed By: #### U MICAO, UAX #### [facility] [address] [place] [address] Brewery Pumper: Marcelino Lopez MD Glucose Ql (U) Negative Normal NEG [facility] Comment on above: Performed By: #### U MICAO, UAX #### [facility] [address] [place] [address] [place] [place], [place] 5547483 Brewery Pumper: Marcelino Lopez MD Ketones Ql (U) Negative Normal NEG [facility] Comment on above: Performed By: #### U MICAO, UAX #### [facility] [address] [place], [place] 1316483 Brewery Pumper: Marcelino Lopez MD Leukocyte esterase Test strip Ql (U) Negative Normal NEG [facility] Comment on above: Performed By: #### U MICAO, UAX #### [facility] [address] [place], [place] 6043883 Brewery Pumper: Marcelino Lopez MD Nitrite,Ur Positive Abnormal NEG [facility] Comment on above: Performed By: #### U MICAO, UAX #### [facility] [address] [place] [address] [place], [place] 9075183 Brewery Pumper: Marcelino Lopez MD PH,Ur 5.5 Normal 5.0-9.[address] [facility] Comment on above: Performed By: #### U MICAO, UAX #### [facility] [address] [place] [address] [place], [place] 9444183 Brewery Pumper: Marcelino Lopez MD Protein Ql (U) Negative Normal NEG [facility] Comment on above: Performed By: #### U MICAO, UAX #### [facility] [address] [place] [address] [place], [place] [phone] Brewery Pumper: Marcelino Lopez MD Spec. [place],Ur >1.030 High 1.010-1.020 [facility] Comment on above: Performed By: #### U MICAO, UAX #### [facility] [address] [place] [address] [place], [place] 9262683 Brewery Pumper: Marcelino Lopez MD Urobilinogen,Ur Normal Normal 0.0-1.0 [facility] Comment on above: Performed By: #### U MICAO, UAX #### [facility] [address] [place] [address] Brewery Pumper: Marcelino Lopez MD Urinalysis with Reflex to Cu ltureon 01-31-2024 Bilirubin Ql (U) Negative NEGATIVE [facility] Clarity (U) Clear Clear [facility] Color (U) Yellow Yellow [facility] Glucose Test strip (U) [Mass/Vol] Negative NEGATIVE mg/dL [facility] Hemoglobin Auto test strip Ql (U) TRACE Abnormal NEGATIVE [facility] Interpretation and review of laboratory results Abnormal [facility] Ketones (U) [Mass/Vol] Negative NEGAT [place] mg/dL [facility] Leukocyte esterase Test strip Ql (U) Negative NEGATIVE [facility] Nitrite Ql (U) Positive Abnormal NEGATIVE [facility] pH (U) 5.5 [pH] 5.0 - 9.[address] [facility] Protein (U) [Mass/Vol] Negative NEGAT [place] mg/dL [facility] Specific gravity (U) [Rel density] High 1.010 - 1.[address] [facility] Urobilinogen Qn (U) Normal 0.0 - 1. 0 EU/dL [facility] Urinalysis,Microon 4 Bacteria 3+ Abnormal NONE [facility] Comment on above: Performed By: #### U MICAO, UAX #### [facility] [address] [place] [address] Brewery Pumper: Marcelino Lopez MD Casts 2 TO [address] [facility] Comment on above: Result Comment: HYAL INE Performed By: #### U MICAO, UAX #### [facility] [address] [place] [address] Brewery Pumper: Marcelino Lopez MD Epithelial cells LM Ql (Urine sed) 10 TO 20 Normal 0-[address] [facility] Comment on above: Performed By: #### U MICAO, UAX #### [facility] [address] [place] [address] Brewery Pumper: Marcelino Lopez MD Urine RBC's 2 TO 5 Normal 0-[address] [facility] Comment on above: Performed By: #### U MICAO, UAX #### [facility] [address] [place], [place] [phone] Brewery Pumper: Marcelino Lopez MD Urine WBC's 2 TO 5 Normal 0-[address] [facility] Comment on above: Performed By: #### U MICAO, UAX #### [facility] [address] [place] [address] Brewery Pumper: Marcelino Lopez MD [facility] CHRISTEL DIGITAL SCREEN LISA Fitzgeraldjoseph 11-21-2023 [facility] CHRISTEL DIGITAL SCREEN BILATERAL EXAMINATION: SCREENING DIGITAL [...] to the patient regarding the results. [employer] recommends annual mammograms for women 40 years and older. Interpreted by: Erlin Sol MD Signed by: Erlin Sol MD 11/21/23 Final result Normal [facility] 07-28-2023 ALT [Catalytic activity/Vol] 5 U/L Normal 5-[address] [facility] Comment on above: Performed By: #### B MP, ALT, AST #### [facility] [address] [place] [address] Brewery Pumper: Marcelino Lopez MD #### FERI #### [place] [address] [place], [place] [phone] Brewery Pumper: Higinio Bullock MD [facility] 07-28-2023 AST [Catalytic activity/Vol] 11 U/L Normal <[address] [facility] Comment on above: Performed By: #### B MP, ALT, AST #### [facility] [address] [place], [place] [phone] Brewery Pumper: Marcelino Lopez MD #### FERI #### [address] [phone] Brewery Pumper: Higinio Bullock MD Basic Metabolic Profon 07-27 Anion gap [Moles/Vol] 11 mmol/L Normal 9-17 [facility] Comment on above: Performed By: #### B MP, ALT, AST #### [address] [place] [address] Brewery Pumper: Marcelino Lopez MD #### FERI #### [address] [address] Brewery Pumper: Higinio Bullock MD BUN/CRE Ratio 13 Normal 9-20 [facility] Comment on above: Performed By: #### B MP, ALT, AST #### [facility] [address] [place] [address] [place] [place], [place] 3913183 Brewery Pumper: Marcelino Lopez MD #### FERI #### [address] [address] Brewery Pumper: Higinio Bullock MD Calcium [Mass/Vol] 8.8 mg/dL Normal 8.6-10.[address] [facility] Comment on above: Performed By: #### B MP, ALT, AST #### [address] [place], [place] 9292383 Brewery Pumper: Marcelino Lopez MD #### FERI #### [facility] [address] [place], [place] 5210508 Brewery Pumper: Higinio Bullock MD Chloride [Moles/Vol] 102 mmol/L Normal 98-107 [facility] Comment on above: Performed By: #### B MP, ALT, AST #### [facility] [address] [place], [place] 4456083 Brewery Pumper: Marcelino Lopez MD #### FERI #### [address] [id number] Brewery Pumper: Higinio Bullock MD CO2 [Moles/Vol] 24 mmol/L Normal 20-31 [facility] Comment on above: Performed By: #### B MP, ALT, AST #### [facility] [address] [place], [place] 6718683 Brewery Pumper: Marcelino Lopez MD #### FERI #### [address] [address] Brewery Pumper: Higinio Bullock MD Creatinine [Mass/Vol] 0.7 mg/dL Normal 0.5-0.9 [facility] Comment on above: Performed By: #### B MP, ALT, AST #### [facility] [address] [place] [address] Brewery Pumper: Marcelino Lopez MD #### FERI #### [address] [address] Brewery Pumper: Higinio Bullock MD GFR/1.73 sq M.predicted among non-blacks MDRD (S/P/Bld) [Vol rate/Area] mL/min/{1.73_m2} Normal >[address] [facility] Comment on above: Result Comment: These [...] By: #### B MP, ALT, AST #### [address] [place], [place] 7490583 Brewery Pumper: Marcelino Lopez MD #### FERI #### [address] [phone] Brewery Pumper: Higinio Bullock MD Glucose [Mass/Vol] 95 mg/dL Normal 70-[address] [facility] Comment on above: Performed By: #### B MP, ALT, AST #### [address] [place] [phone] ( Brewery Pumper: Marcelino Lopez MD #### FERI #### [address] [address] Brewery Pumper: Higinio Bullock MD Potassium [Moles/Vol] 3.8 mmol/L Normal 3.7-5.3 [facility] Comment on above: Performed By: #### B MP, ALT, AST #### [address] [place], [place] 7859883 Brewery Pumper: Marcelino Lopez MD #### FERI #### [address] [address] Brewery Pumper: Higinio Bullock MD Sodium [Moles/Vol] 137 mmol/L Normal 135-[address] [facility] Comment on above: Performed By: #### B MP, ALT, AST #### [address] [place], [place] 5570483 Brewery Pumper: Marcelino Lopez MD #### FERI #### [address] [address] Brewery Pumper: Higinio Bullock MD Urea nitrogen [Mass/Vol] 9 mg/dL Normal 6-[address] [facility] Comment on above: Performed By: #### B MP, ALT, AST #### [facility] [address] [place] [address] Brewery Pumper: Marcelino Lopez MD #### MAR #### [facility] [address] [place], [place] 1692608 Brewery Pumper: Higinio Bullock MD CBC with Diffon 07-28-2023 Abs. Basophil 0.08 k/uL Normal 0.00-0.20 [facility] Comment on above: Performed By: #### C DP #### [address] [place] [address] Brewery Pumper: Marcelino Lopez MD Abs.Imm.Granulocyte 0.04 k/uL Normal 0.00-0.[address] [facility] Comment on above: Performed By: #### C DP #### [address] [place] [address] Brewery Pumper: Marcelino Lopez MD Abs.Neutrophil (Seg) 4.48 k/uL Normal 1.50-8.10 [facility] Comment on above: Performed By: #### C DP #### [address] [place] [address] Brewery Pumper: Marcelino Lopez MD Basophils/100 WBC (Bld) 1 % Normal 0-[address] [facility] Comment on above: Performed By: #### C DP #### [facility] [address] [place], [place] [address] Brewery Pumper: Marcelino Lopez MD Eosinophils (Bld) [#/Vol] 0.45 10*3/uL High 0.00-0.[address] [facility] Comment on above: Performed By: #### C DP #### [address] [place] [address]83 Brewery Pumper: aMrcelino Lopez MD Eosinophils/100 WBC (Bld) 5 % High 1-[address] [facility] Comment on above: Performed By: #### C DP #### [facility] [address] [place], [place] [phone] Brewery Pumper: Marcelino Lopez MD Erythrocyte distribution width (RBC) [Ratio] 15.2 % High 11.8-14.[address] [facility] Comment on above: Performed By: #### C DP #### [facility] [address] [place], [place] 0596283 Brewery Pumper: Marcelino Lopez MD Hematocrit (Bld) [Volume fraction] 35.2 % Low 36.3-47.[address] [facility] Comment on above: Performed By: #### C DP #### [facility] [address] [place] [address] [place] [place], [place] 7814683 Brewery Pumper: Marcelino Lopez MD Hemoglobin (Bld) [Mass/Vol] 10.8 g/dL Low 11.9-15.[address] [facility] Comment on above: Performed By: #### C DP #### [facility] [address] [place], [place] 1442883 Brewery Pumper: Marcelino Lopez MD Immature granulocytes/100 WBC (Bld) 1 % High [address] [facility] Comment on above: Performed By: #### C DP #### [facility] [address] [place] [address] [address] [place], [place] [address] Brewery Pumper: Marcelino Lopez MD Lymphocytes (Bld) [#/Vol] 3.04 10*3/uL Normal 1.10-3.[address] [facility] Comment on above: Performed By: #### C DP #### [facility] [address] [place], [place] 9607283 Brewery Pumper: Marcelino Lopez MD Lymphocytes/100 WBC (Bld) 35 % Normal 24-[address] [facility] Comment on above: Performed By: #### C DP #### [facility] [address] [place], [place] 7673383 Brewery Pumper: Marcelino Lopez MD MCH (RBC) [Entitic mass] 24.3 pg Low 25.2-33.[address] [facility] Comment on above: Performed By: #### C DP #### [facility] [address] [place] [address] [place] [place] [phone] Brewery Pumper: Marcelino Lopez MD MCHC (RBC) [Mass/Vol] 30.7 g/dL Normal 28.4-34.8 [facility] Comment on above: Performed By: #### C DP #### [address] [place], [place] 9028683 Brewery Pumper: Marcelino Lopez MD MCV (RBC) [Entitic vol] 79.3 fL Low 82.6-102.[address] [facility] Comment on above: Performed By: #### C DP #### [address] [place], [place] 6348383 Brewery Pumper: Marcelino Lopez MD Monocytes (Bld) [#/Vol] 0.63 10*3/uL Normal 0.10-1.[address] [facility] Comment on above: Performed By: #### C DP #### [address] [place], [place] 9159283 Brewery Pumper: Marcelino Lopez MD Monocytes/100 WBC (Bld) 7 % Normal 3-[address] [facility] Comment on above: Performed By: #### C DP #### [facility] [address] [place] [address] [place], [place] [phone] Brewery Pumper: Marcelino Lopez MD Neutrophil (Seg) 51 % Normal 36-65 [facility] Comment on above: Performed By: #### C DP #### [facility] [address] [place] [address] [place], [place] 2502083 Brewery Pumper: Marcelino Lopez MD NRBC Automated 0.0 per 100 WBC Normal 0.[address] [facility] Comment on above: Performed By: #### C DP #### [facility] [address] [place], [place] [address] Brewery Pumper: Marcelino Lopez MD Platelet mean volume (Bld) [Entitic vol] 11.5 fL Normal 8.1-13.[address] [facility] Comment on above: Performed By: #### C DP #### [facility] [address] [place], [id number] Brewery Pumper: Marcelino Lopez MD Platelets (Bld) [#/Vol] 375 10*3/uL Normal 138-[address] [facility] Comment on above: Performed By: #### C DP #### [facility] [address] [place], [place] [id number] Brewery Pumper: Marcelino Lopez MD RBC (Bld) [#/Vol] 4.44 10*6/uL Normal 3.95-5.[address] [facility] Comment on above: Performed By: #### C DP #### [address] [place], [place] [id number] Brewery Pumper: Marcelino Lopez MD WBC (Bld) [#/Vol] 8.7 10*3/uL Normal 3.5-11.[address] [facility] Comment on above: Performed By: #### C DP #### [address] [place], [id number] Brewery Pumper: Marcelino Lopez MD Ferritinon 07-28-2023 Ferritin [Mass/Vol] 11 ng/mL Low 13-[address] [facility] Comment on above: Result Comment: FERRITIN Reference Ranges: Adult Males 20 - 60 years: 30 - 400 ng/mL Adult females 17 - 60 years: 13 - 150 ng/mL Adults greater than 60 years: no established reference range Pediatrics: no established reference range Performed By: #### B MP, ALT, AST #### [facility] [address] [place] [address] Brewery Pumper: Marcelino Lopez MD #### FERI #### [facility] [employer] [address] [place] [address] Brewery Pumper: Higinio Bullock MD Lipid Profileon 07-28-2023 Cholesterol [Mass/Vol] 169 mg/dL Normal 0-199 [facility] Comment on above: Result Comment: Cholesterol Guidelines: <200 Desirable 200-240 Borderline >240 Undesirable Performed By: #### L IPR ####[facility] [address] [place] [address] Lab Director: Higinio Bullock MD Cholesterol in HDL [Mass/Vol] 46 mg/dL Normal >[address] [facility] Comment on above: Result Comment: HDL Guidelines: <40 Undesirable 40-59 Borderline >59 Desirable Performed By: #### L IPR ####[address] [address] Lab Director: Higinio Bullock MD Cholesterol in LDL [Mass/Vol] 90 mg/dL Normal 0-[address] [facility] Comment on above: Result Comment: LDL Guidelines: <100 Desirable 100-129 Near to/above Desirable 130-159 Borderline >159 Undesirable Direct (measured) LDL and calculated LDL are not interchangeable tests. Performed By: #### L IPR ####[facility] [address] [place] [address] Lab Director: Higinio Bullock MD Cholesterol in VLDL [Mass/Vol] 33 mg/dL Normal [facility] Comment on above: Performed By: #### L IPR ####[facility] [address] [place] [address] Lab Director: Higinio Bullock MD Cholesterol.total/Chol esterol in HDL [Mass ratio] 4.0 {ratio} Normal [facility] Comment on above: Performed By: #### L IPR ####[facility] [address] [place] [address] Lab Director: Higinio Bullock MD Triglyceride [Mass/Vol] 166 mg/dL High <[address] [facility] Comment on above: Result Comment: Triglyceride Guidelines: <150 Desirable 150-199 Borderline 200-499 High >499 Very high Based on AHA Guidelines for fasting triglyceride, February 2012. Performed By: #### L IPR ####[facility] [place] [address] Lab Director: Higinio Bullock MD Vitamin B12on 07-28-2023 Cobalamin (Vitamin B12) [Mass/Vol] 263 pg/mL Normal 232-[address] [facility] Comment on above: Performed By: #### B MP, ALT, AST #### [facility] [address] [place] [address] Brewery Pumper: Marcelino Lopez MD #### FERI #### [facility] [address] [place], [place] [id number] Brewery Pumper: Higinio Bullock MD Cult,Urineon 07-26-2023 Cult,Urine Specimen [...] Tobramycin <=1 SUSCEPTIBLE Trimethoprim/Sulfa <=20 SUSCEPTIBLE Susceptible [facility] Comment on above: Performed By: #### U RC #### [facility] [address] [place] [address] Brewery Pumper: Higinio Bullock MD [facility] [address] [place] [address] Brewery Pumper: Marcelino Lopez MD CBC with Diffon 04-23-2023 Abs. Basophil 0.05 k/uL Normal 0.00-0.20 [facility] Comment on above: Performed By: #### C P, CDP, MG ####[address] , [place] [id number] [facility] Director: Marcelino Lopez MD Abs.Imm.Granulocyte 0.07 k/uL Normal 0.00-0.[address] [facility] Comment on above: Performed By: #### C P, CDP, MG ####[address] , [place] [address] [facility] Director: Marcelino Lopez MD Abs.Neutrophil (Seg) 13.34 k/uL High 1.50-8.10 [facility] Comment on above: Performed By: #### C P, CDP, MG ####[address] [place], [place] [address])[phone] Director: Marcelino Lopez MD Basophils/100 WBC (Bld) 0 % Normal 0-[address] [facility] Comment on above: Performed By: #### C P, CDP, MG ####[address] , [place] [address] lab Director: Marcelino Lopez MD Eosinophils (Bld) [#/Vol] 0.19 10*3/uL Normal 0.00-0.[address] [facility] Comment on above: Performed By: #### C P, CDP, MG ####[address] , [place] [address])[phone] Director: Marcelino Lopez MD Eosinophils/100 WBC (Bld) 1 % Normal 1-[address] [facility] Comment on above: Performed By: #### C P, CDP, MG ####[address] , [facility] Lab Director: Marcelino Lopez MD Erythrocyte distribution width (RBC) [Ratio] 15.3 % High 11.8-14.[address] [facility] Comment on above: Performed By: #### C P, CDP, MG ####[address] , [place] [id number] Lab Director: Marcelino Lopez MD Hematocrit (Bld) [Volume fraction] 33.3 % Low 36.3-47.[address] [facility] Comment on above: Performed By: #### C P, CDP, MG ####[address] , [place] [id number] Lab Director: Marcelino Lopez MD Hemoglobin (Bld) [Mass/Vol] 10.4 g/dL Low 11.9-15.[address] [facility] Comment on above: Performed By: #### C P, CDP, MG ####[address] , [facility] lab Director: Marcelino Lopez MD Immature granulocytes/100 WBC (Bld) 1 % High [address] [facility] Comment on above: Performed By: #### C P, CDP, MG ####[address] , [id number] Lab Director: Marcelino Lopez MD Lymphocytes (Bld) [#/Vol] 1.02 10*3/uL Low 1.10-3.[address] [facility] Comment on above: Performed By: #### C P, CDP, MG ####[address] , [facility] Lab Director: Marcelino Lopez MD Lymphocytes/100 WBC (Bld) 7 % Low 24-[address] [facility] Comment on above: Performed By: #### C P, CDP, MG ####[address] , [place] [address]83 Lab Director: Marcelino Lopez MD MCH (RBC) [Entitic mass] 25.7 pg Normal 25.2-33.[address] [facility] Comment on above: Performed By: #### C P, CDP, MG ####[address] , [facility] Lab Director: Marcelino Lopez MD MCHC (RBC) [Mass/Vol] 31.2 g/dL Normal 28.4-34.8 [facility] Comment on above: Performed By: #### C P, CDP, MG ####[address] [place] [address] Lab Director: Marcelino Lopez MD MCV (RBC) [Entitic vol] 82.4 fL Low 82.6-102.[address] [facility] Comment on above: Performed By: #### C P, CDP, MG ####[address] , [facility] lab Director: Marcelino Lopez MD Monocytes (Bld) [#/Vol] 0.81 10*3/uL Normal 0.10-1.[address] [facility] Comment on above: Performed By: #### C P, CDP, MG ####[address] , [facility] Lab Director: Marcelino Lopez MD Monocytes/100 WBC (Bld) 5 % Normal 3-[address] [facility] Comment on above: Performed By: #### C P, CDP, MG ####[address] , [id number] Lab Director: Marcelino Lopez MD Neutrophil (Seg) 86 % High 36-65 [facility] Comment on above: Performed By: #### C P, CDP, MG ####[address] , [facility] Lab Director: Marcelino Lopez MD NRBC Automated 0.0 per 100 WBC Normal 0.[address] [facility] Comment on above: Performed By: #### C P, CDP, MG ####[address] , [place] [id number] Lab Director: Marcelino Lopez MD Platelet mean volume (Bld) [Entitic vol] 10.7 fL Normal 8.1-13.[address] [facility] Comment on above: Performed By: #### C P, CDP, MG ####[address] [place] [address] Lab Director: Marcelino oLpez MD Platelets (Bld) [#/Vol] 331 10*3/uL Normal 138-[address] [facility] Comment on above: Performed By: #### C P, CDP, MG ####[address] [place] [address] Lab Director: Marcelino Lopez MD RBC (Bld) [#/Vol] 4.04 10*6/uL Normal 3.95-5.[address] [facility] Comment on above: Performed By: #### C P, CDP, MG ####[address] , [place] 311[address]83 Lab Director: Marcelino Lopez MD WBC (Bld) [#/Vol] 15.5 10*3/uL High 3.5-11.[address] [facility] Comment on above: Performed By: #### C P, CDP, MG ####[address] , [place] 5659[address] Lab Director: Marcelino Lopez MD Comp Metabolic Profon 2022 Albumin [Mass/Vol] 3.9 g/dL Normal 3.5-5.[address] [facility] Comment on above: Performed By: #### C P, CDP, MG ####[address] , [place] [address]83 Lab Director: Marcelino Lopez MD Albumin/Glob Ratio 1.0 Normal 1.0-2.[address] [facility] Comment on above: Performed By: #### C P, CDP, MG ####[address] [place] [address] Lab Director: Marcelino Lopez MD Alkaline Phos 97 U/L Normal 35-104 [facility] Comment on above: Performed By: #### C P, CDP, MG ####[address] [place] [address] Lab Director: Marcelino Lopez MD ALT [Catalytic activity/Vol] 7 U/L Normal 5-[address] [facility] Comment on above: Performed By: #### C P, CDP, MG ####[address] , [place] [id number] lab Director: Marcelino Lopez MD Anion gap [Moles/Vol] 10 mmol/L Normal 9-17 [facility] Comment on above: Performed By: #### C P, CDP, MG ####[address] , [place] [address]83 lab Director: Marcelino Lopez MD AST [Catalytic activity/Vol] 16 U/L Normal <[address] [facility] Comment on above: Performed By: #### C P, CDP, MG ####[address] , [place] [id number] lab Director: Marcelino Lopez MD Bilirubin [Mass/Vol] 0.2 mg/dL Low 0.3-1.2 [facility] Comment on above: Performed By: #### C P, CDP, MG ####[address] , [place] [id number] lab Director: Marcelino Lopez MD BUN/CRE Ratio 17 Normal 9-20 [facility] Comment on above: Performed By: #### C P, CDP, MG ####[address] [place] [address] lab Director: Marcelino Lopez MD Calcium [Mass/Vol] 8.9 mg/dL Normal 8.6-10.[address] [facility] Comment on above: Performed By: #### C P, CDP, MG ####[address] , [place] [id number] lab Director: Marcelino Lopez MD Chloride [Moles/Vol] 103 mmol/L Normal 98-107 [facility] Comment on above: Performed By: #### C P, CDP, MG ####[address] , [place] [address]83 lab Director: Marcelino Lopez MD CO2 [Moles/Vol] 22 mmol/L Normal 20-31 [facility] Comment on above: Performed By: #### C P, CDP, MG ####[address] , [facility] lab Director: Marcelino Lopez MD Creatinine [Mass/Vol] 0.6 mg/dL Normal 0.5-0.9 [facility] Comment on above: Performed By: #### C P, CDP, MG ####[address] , [facility] lab Director: Marcelino Lopez MD GFR/1.73 sq M.predicted among non-blacks MDRD (S/P/Bld) [Vol rate/Area] mL/min/{1.73_m2} Normal >[address] [facility] Comment on above: Result Comment: These [...] Performed By: #### C P, CDP, MG ####[address] [place] [address] lab Director: Marcelino Lopez MD Glucose [Mass/Vol] 100 mg/dL High 70-[address] [facility] Comment on above: Performed By: #### C P, CDP, MG ####[address] , [place] [address] [facility] Director: Marcelino Lopez MD Potassium [Moles/Vol] 3.8 mmol/L Normal 3.7-5.3 [facility] Comment on above: Performed By: #### C P, CDP, MG ####[address] , [place] 7097[address] [facility] Director: Marcelino Lopez MD Protein [Mass/Vol] 7.8 g/dL Normal 6.4-8.[address] [facility] Comment on above: Performed By: #### C P, CDP, MG ####[address] , [place] 514[address]83 [facility] Director: Marcelino Lopez MD Sodium [Moles/Vol] 135 mmol/L Normal 135-[address] [facility] Comment on above: Performed By: #### C P, CDP, MG ####[address] , [place] [address] [facility] Director: Marcelino Lopez MD Urea nitrogen [Mass/Vol] 10 mg/dL Normal 6-[address] [facility] Comment on above: Performed By: #### C P, CDP, MG ####[address] , [place] 89[address] [facility] Director: Marcelino Lopez MD Magnesiumon 9 Magnesium [Mass/Vol] 1.9 mg/dL Normal 1.6-2.6 [facility] Comment on above: Performed By: #### B MP, ALT, AST #### [facility] [address] [place] [address] Brewery Pumper: Marcelino Lopez MD #### FERI #### [place] [address] [place], [place] 6758[address] Brewery Pumper: Higinio Bullock MD Strep Group A, Rapidon 04-23 Strep A, Molecular Positive Abnormal NEG [facility] Comment on above: Performed By: #### R SAB ####[address] , [place] 2209483 Lab Director: Marcelino Lopez MD Source .THROAT SWAB Normal [facility] Comment on above: Performed By: #### R SAB ####[address] , [place] [id number] Lab Director: Marcelino Lopez MD UA w/Reflex Cultureon 2022 Bilirubin, SemiQt,Ur Negative Normal NEG [facility] Comment on above: Performed By: #### U AX, UMICAO ####[address] [place] [address] Lab Director: Marcelino Lopez MD Blood, Urine 3+ Abnormal NEG [facility] Comment on above: Performed By: #### U AX, UMICAO ####[address] [place] [address] Lab Director: Marcelino Lopez MD Clarity (U) Clear Normal CLEAR [facility] Comment on above: Performed By: #### U AX, UMICAO ####[address] [place] [address] Lab Director: Marcelino Lopez MD Color (U) Yellow Normal YEL [facility] Comment on above: Performed By: #### U AX, UMICAO ####[address] [place] [address] Lab Director: Marcelino Lopez MD Glucose Ql (U) Negative Normal NEG [facility] Comment on above: Performed By: #### U AX, UMICAO ####[address] , [place] [id number] Lab Director: Marcelino Lopez MD Ketones Ql (U) 1+ mg/dL Abnormal NEG [facility] Comment on above: Performed By: #### U AX UMICAO ####[address] [place] [address] Lab Director: Marcelino Lopez MD Leukocyte esterase Test strip Ql (U) Negative Normal NEG [facility] Comment on above: Performed By: #### U AX, UMICAO ####[address] [place] [address] Lab Director: Marcelino Lopez MD Nitrite,Ur Negative Normal NEG [facility] Comment on above: Performed By: #### U AX, UMICAO ####[address] [place] [address] Lab Director: Marcelino Lopez MD PH,Ur 6.0 Normal 5.0-9.[address] [facility] Comment on above: Performed By: #### U AX, UMICAO ####[address] [place] [address] Lab Director: Marcelino Lopez MD Protein Ql (U) Negative Normal NEG [facility] Comment on above: Performed By: #### U AX, UMICAO ####[address] [place] [address] Lab Director: Marcelino Lopez MD Spec. [place],Ur 1.025 High 1.010-1.020 [facility] Comment on above: Performed By: #### U AX, UMICAO ####[address] [place] [address] Lab Director: Marcelino Lopez MD Urobilinogen,Ur Normal Normal 0.0-1.0 [facility] Comment on above: Performed By: #### U AX, UMICAO ####[address] [place] [address] Lab Director: Marcelino Lopez MD Urinalysis,Microon 3 Bacteria TRACE Abnormal NONE [facility] Comment on above: Performed By: #### U AX, UMICAO ####[facility] [place] , [place] [address] [facility] Director: Marcelino Lopez MD Epithelial cells LM Ql (Urine sed) 0 TO 2 Normal 0-[address] [facility] Comment on above: Performed By: #### U AX, UMICAO ####[facility] [place] , [place] [address] lab Director: Marcelino Lopez MD Urine RBC's GREATER THAN 100 Normal 0-2 [facility] Comment on above: Performed By: #### U AX, UMICAO ####[address] , [place] [address] lab Director: Marcelino Lopez MD Urine WBC's 0 TO 2 Normal 0-[address] [facility] Comment on above: Performed By: #### U AX, UMICAO ####[address] , [place] [address] lab Director: Marcelino Lopez MD XR ANKLE [...] Ashley Claros MD 04/16/23 Final result Normal [facility] XR FOOT RIGHT (MIN 3 VIEWS)o [...] Ashley Claros MD 04/16/23 Final result Normal [facility] Brain Natriuretic Peptideon 06-27-2022 Natriuretic peptide B (Bld) [Mass/Vol] pg/mL NINF - 300 pg/mL [facility] Comment on above: An age-independent cutoff point of 300 pg/ml has a 98% negative predictive value excluding acute heart failure. [facility] CBC with Auto Differentialon 06-27-2022 Absolute Eos # 0.37 [facility] Absolute Immature Granulocyte 0.[address] [facility] Absolute Lymph # 2.77 [facility] Absolute Bowie # 0.52 [facility] Basophils (Bld) [#/Vol] 0.07 10*3/uL [facility] Basophils/100 WBC (Bld) 1 % 0 - 2 % [facility] Eosinophils/100 WBC (Bld) 5 % High 1 - 4 % [facility] Hematocrit (Bld) [Volume fraction] 37.6 % 36.3 - 47.1 % [facility] Hemoglobin (Bld) [Mass/Vol] 12.2 g/dL 11.9 - 15.1 g/dL [facility] Immature granulocytes/100 WBC (Bld) 1 % High [address] [facility] Interpretation and review of laboratory results Abnormal [facility] Lymphocytes/100 WBC (Bld) 37 % 24 - 43 % [facility] MCH (RBC) [Entitic mass] 28.2 pg 25.2 - 33.[address] [facility] MCHC (RBC) [Mass/Vol] 32.4 g/dL 28.4 - 34.8 g/dL [facility] MCV (RBC) [Entitic vol] 87.0 fL 82.6 - 102.[address] [facility] Monocytes/100 WBC (Bld) 7 % 3 - 12 % [facility] NRBC Automated 0.0 0.0 per [address] [facility] Platelet distribution width (Bld) [Ratio] 14.6 % High 11.8 - 14.4 % [facility] Platelet mean volume (Bld) [Entitic vol] 10.1 fL 8.1 - 13.[address] [facility] Platelets (Bld) [#/Vol] 358 10*3/uL [facility] RBC (Bld) [#/Vol] 4.32 10*6/uL 3.95 - 5.1 1 m/uL [facility] Segmented neutrophils/100 WBC (Bld) 49 % 36 - 65 % [facility] Segs Absolute 3.[address] [facility] WBC (Bld) [#/Vol] 7.5 10*3/uL [facility] CMPon 06-27-2022 Albumin [Mass/Vol] 3.8 g/dL 3.5 - 5.2 g/dL [facility] Albumin/Globulin [Mass ratio] 1.1 {ratio} 1.0 - 2.[address] [facility] ALP [Catalytic activity/Vol] 91 U/L 35 - 104 U/L [facility] ALT [Catalytic activity/Vol] 9 U/L 5 - 33 U/L [facility] Anion gap [Moles/Vol] 9 mmol/L 9 - 17 mmol/L [facility] AST [Catalytic activity/Vol] 16 U/L NINF - 32 U/L [facility] Bilirubin [Mass/Vol] 0.2 mg/dL Low 0.3 - 1 .2 mg/dL [facility] Calcium [Mass/Vol] 8.7 mg/dL 8.6 - 10. 4 mg/dL [facility] Chloride [Moles/Vol] 105 mmol/L 98 - 10 7 mmol/L [facility] CO2 [Moles/Vol] 23 mmol/L 20 - 31 mmol/L [facility] Creatinine [Mass/Vol] 0.72 mg/dL 0.50 - 0.90 mg/dL [facility] GFR/1.73 sq M.predicted MDRD (S/P/Bld) [Vol rate/Area] - PINF [facility] Comment on above: These results are [...] [Mass/Vol] 96 mg/dL 70 - 99 mg/dL [facility] Interpretation and review of laboratory results Abnormal [facility] Potassium [Moles/Vol] 4.1 mmol/L 3.7 - 5.3 mmol/L [facility] Protein [Mass/Vol] 7.4 g/dL 6.4 - 8.3 g/dL [facility] Sodium [Moles/Vol] 137 mmol/L 135 - 144 mmol/L [facility] Urea nitrogen [Mass/Vol] 11 mg/dL 6 - 20 mg/dL [facility] Urea nitrogen/Creatinine (Bld) [Mass ratio] 15 9 - [address] [facility] Magnesiumon 06-27-2022 Magnesium [Mass/Vol] 2.2 mg/dL 1.6 - 2 .6 mg/dL [facility] No Panel Informationon 06-[address] [facility] Troponinon 06-27-2022 Troponin I.cardiac DL <= 0.01 ng/mL [Mass/Vol] ng/L 0 - 14 ng/L [facility] Comment on above: High Sensitivity Tro ponin values cannot be compared with other Troponin methodologies. XR CHEST PORTABLEon 06-27-19 Unchanged appearance of the chest without acute airspace disease identified. [facility] EXAMINATION: ONE XRAY VIEW OF THE CHEST 06/27/2022 1:43 pm COMPARISON: 06/28/2020 HISTORY: ORDERING SYSTEM PROVIDED HISTORY: sob TECHNOLOGIST PROVIDED HISTORY: sob FINDINGS: The cardiomediastinal silhouette is unchanged in appearance. There is no consolidation, pneumothorax, or evidence of edema. No effusion is appreciated. The osseous structures are unchanged in appearance. [facility] Justus Oliva MD - 06/27/2022 EXAMINATION: [...] the chest without acute airspace disease identified. [facility] [email or web address] Work Phone: Radiology Study observation (narrative) [facility] [email or web address] Work Phone: XR CHEST PORTABLEOrdered By: Justus Oliva on 06-27-2022 [facility] [email or web address] Work Phone: CBC Auto Differentialon 08- Absolute Eos # 0.25 [facility] [email or web address] Absolute Immature Granulocyte 0.06 [facility] [email or web address] Absolute Lymph # 2.56 [facility] Absolute Bowie # 0.52 [facility] [place] Basophils (Bld) [#/Vol] 0.05 10*3/uL [facility] Basophils/100 WBC (Bld) 1 % 0 - 2 % [facility] Eosinophils/100 WBC (Bld) 3 % 1 - 4 % [facility] Hematocrit (Bld) [Volume fraction] 36.1 % Low 36.3 - 47.1 % [facility] Hemoglobin (Bld) [Mass/Vol] 11.0 g/dL Low 11.9 - 15.1 g/dL [facility] Immature granulocytes/100 WBC (Bld) 1 % High [address] [facility] Interpretation and review of laboratory results Abnormal [facility] Lymphocytes/100 WBC (Bld) 28 % 24 - 43 % [facility] MCH (RBC) [Entitic mass] 27.0 pg 25.2 - 33.[address] [facility] MCHC (RBC) [Mass/Vol] 30.5 g/dL 28.4 - 34.8 g/dL [facility] MCV (RBC) [Entitic vol] 88.7 fL 82.6 - 102.[address] [facility] [facility] Monocytes/100 WBC (Bld) 6 % 3 - 12 % [facility] NRBC Automated 0.0 0.0 per [address] [facility] Platelet distribution width (Bld) [Ratio] 14.1 % 11.8 - 14.4 % [facility] Platelet mean volume (Bld) [Entitic vol] 11.0 fL 8.1 - 13.[address] [facility] Platelets (Bld) [#/Vol] 305 10*3/uL [facility] RBC (Bld) [#/Vol] 4.07 10*6/uL 3.95 - 5.1 1 m/uL [facility] Segmented neutrophils/100 WBC (Bld) 61 % 36 - 65 % [facility] Segs Absolute 5.[address] [facility] WBC (Bld) [#/Vol] 9.3 10*3/uL [facility] Ferritinon 12-29-2021 Ferritin [Mass/Vol] 23 ng/mL 13 - 150 ng/mL [facility] [email or web address] Vitamin B12on 12-29-2021 Cobalamin (Vitamin B12) [Mass/Vol] 168 pg/mL Low 232 - 1245 pg/mL [facility] [email or web address] Interpretation and review of laboratory results Abnormal [facility] [email or web address] XR HUMERUS LEFT (MIN 2 VIEWS )Ordered By: Ebony Bonds on 02-12-2021 No acute osseous abnormality. [employer] Phone: EXAMINATION: TWO XRAY VIEWS OF THE LEFT HUMERUS 02/12/2021 5:05 pm COMPARISON: June 08, 2016 HISTORY: ORDERING SYSTEM PROVIDED HISTORY: pain TECHNOLOGIST PROVIDED HISTORY: pain FINDINGS: There is no evidence of acute fracture. There is normal alignment. No acute joint abnormality. No focal osseous lesion. No focal soft tissue abnormality. [employer] Phone: Mian, Mhpn Incoming Radiant Results From [employer] - 02/12/2021 5:11 PM EDT EXAMINATION: TWO XRAY VIEWS OF THE LEFT HUMERUS 02/12/2021 5:05 pm COMPARISON: June 08, 2016 HISTORY: ORDERING SYSTEM PROVIDED HISTORY: pain TECHNOLOGIST PROVIDED HISTORY: pain FINDINGS: There is no evidence of acute fracture. There is normal alignment. No acute joint abnormality. No focal osseous lesion. No focal soft tissue abnormality. IMPRESSION: No acute osseous abnormality. [employer] Phone: [employer]: CBC AUTO DIFFon 01-14-2021 BASO # 0.1 103/ul Normal 0.0-0.1 [facility] Comment on above: Performed By: #### C BC #### [facility] [address] [place], [place] [address] Lan Turcios Basophils/100 WBC (Bld) 0.9 % Normal 0.2-2.0 [facility] Comment on above: Performed By: #### C BC #### [facility] [address] [place], [place] [address] Lan Karolina EO # 0.3 103/ul Normal 0.0-0.7 [facility] Comment on above: Performed By: #### C BC #### [facility] [address] [place], [place] [id number] Lan Karolina Eosinophils/100 WBC (Bld) 4.3 % Normal 0.9-7.0 [facility] Comment on above: Performed By: #### C BC #### [facility] [address] [place] [address] Lan Karolina Erythrocyte distribution width (RBC) [Ratio] 12.7 % Normal 11.0-15.0 [facility] Comment on above: Performed By: #### C BC #### [facility] [address] [place] [address] Lan Karolina Hematocrit (Bld) [Volume fraction] 39.3 % Normal 36.0-48.0 [facility] Comment on above: Performed By: #### C BC #### [facility] [address] [place] [address] Lan Karolina Hemoglobin (Bld) [Mass/Vol] 12.6 g/dL Normal 12.0-16.0 [facility] Comment on above: Performed By: #### C BC #### [facility] [address] [place] [address] Lan Karolina IG # 0.03 10e3/ul Normal 0.00-0.03 [facility] Comment on above: Performed By: #### C BC #### [facility] [address] [place] [address] Lan Karolina IG % 0.5 % Normal 0.0-0.5 [facility] Comment on above: Performed By: #### C BC #### [facility] [address] [place], [place] [id number] Lan Karolina LYMPH # 2.1 103/ul Normal 1.2-3.8 [facility] Comment on above: Performed By: #### C BC #### [facility] [address] [place] [address] Lan Karolina Lymphocytes/100 WBC (Bld) 32.9 % Normal 20.5-60.0 [facility] Comment on above: Performed By: #### C BC #### [facility] [address] [place], [place] [id number] Lanadrian Turcios MANUAL DIFF REQ NO Normal [facility] Comment on above: Performed By: #### C BC #### [facility] [address] [place], [place] [id number] Lanadrian Turcios MCH (RBC) [Entitic mass] 28.8 pg Normal 26.7-34.0 [facility] Comment on above: Performed By: #### C BC #### [facility] [address] [place] [address] Lanadrian Turcios MCHC (RBC) [Mass/Vol] 32.1 g/dL Normal 29.9-35.2 [facility] Comment on above: Performed By: #### C BC #### [facility] [address] [place] [address] Lanadrian Mendesen MCV (RBC) [Entitic vol] 89.7 fL Normal 81.0-99.0 [facility] Comment on above: Performed By: #### C BC #### [facility] [address] [place], [place] [id number] Lan Karolina MONO # 0.6 103/ul Normal 0.3-0.8 [facility] Comment on above: Performed By: #### C BC #### [facility] [address] [place] [address] Lan Karolina Monocytes/100 WBC (Bld) 10.1 % Normal 1.7-12.0 [facility] Comment on above: Performed By: #### C BC #### [facility] [address] [place] [address] Lan Karolina NEUT # 3.2 103/ul Normal 1.4-6.5 [facility] Comment on above: Performed By: #### C BC #### [facility] [address] [place], [place] [id number] Lan Karolina Neutrophils/100 WBC (Bld) 51.3 % Normal 43.0-75.0 [facility] Comment on above: Performed By: #### C BC #### [facility] [address] [place], [place] [address] Lan Turcios Platelet mean volume (Bld) [Entitic vol] 11.3 fL Normal 9.5-13.5 [facility] Comment on above: Performed By: #### C BC #### [facility] [address] [place] [id number] Lan Turcios PLT 316 103/ul Normal 150-450 [facility] Comment on above: Performed By: #### C BC #### [facility] [address] [place] [address] Lan Turcios RBC 4.38 106/ul Normal 4.20-5.40 [facility] Comment on above: Performed By: #### C BC #### [facility] [address] [place] [address] Lan Turcios WBC 6.3 103/ul Normal 4.0-11.0 [facility] Comment on above: Performed By: #### C BC #### [facility] [address] [place], [place] [id number] Lan Turcios CT ABD/PELV W CONon 01-15-20 [...] PING OWENS Date: 2021-01-14 17:54 Normal [facility] ER URINE PROFILEon 1 Bilirubin Ql (U) Negative Normal NEGATIVE [facility] Comment on above: Performed By: #### E RUR #### [facility] [address] [place] [address] Lan Karolina Clarity (U) SL CLOUDY Abnormal CLEAR [facility] Comment on above: Performed By: #### E RUR #### [facility] [address] [place] [address] Lan Karolina Color (U) LT. YELLOW Normal YELLOW [facility] Comment on above: Performed By: #### E RUR #### [facility] [address] [place] [address] Lan Karolina ERUAHD A micrscopic examination will be performed if indicated. Normal [facility] Comment on above: Performed By: #### E RUR #### [facility] [address] [place] [address] Lan Karolina Glucose Ql (U) Negative Normal NEGATIVE [facility] Comment on above: Performed By: #### E RUR #### [facility] [address] [place] [address] Lan Karolina Hemoglobin Ql (U) Negative Normal NEGATIVE [facility] Comment on above: Performed By: #### E RUR #### [facility] [address] [place], [place] [id number] Lan Karolina Ketones Ql (U) Negative Normal NEGATIVE [facility] Comment on above: Performed By: #### E RUR #### [facility] [address] [place], [place] [id number] Lan Karolina LEUKOCYTES Negative Normal NEGATIVE [facility] Comment on above: Performed By: #### E RUR #### [facility] [address] [place], [place] [id number] Lan Karolina Nitrite Ql (U) Negative Normal NEGATIVE [facility] Comment on above: Performed By: #### E RUR #### [facility] [address] [place], [place] [id number] Lan Karolina pH (U) 5.0 [pH] Normal 5-9 [facility] Comment on above: Performed By: #### E RUR #### [facility] [address] [place] [address] Lan Karolina SPEC GRAVITY 1.020 Normal 1.005-<=1.[address] [place] [address] Comment on above: Performed By: #### E RUR #### [facility] [address] [place], [place] [id number] Lan Karolina UA PROTEIN Negative Normal NEGATIVE/ TRACE [facility] Comment on above: Performed By: #### E RUR #### [facility] [address] [place], [place] [id number] Lan Karolina UR MICRO IND NOT INDICATED Normal [facility] Comment on above: Performed By: #### E RUR #### [facility] [address] [place] [address] Lan Karolina Urobilinogen Qn (U) 0.2 {Marques'U}/dL Normal 0.2 - 1. 0 [facility] Comment on above: Performed By: #### E RUR #### [facility] [address] [place], [place] [id number] Lan Karolina LACTATE/LACTIC ACIDon 2020 Lactate [Moles/Vol] 0.9 mmol/L Normal 0.7-2.0 [facility] Comment on above: Performed By: #### L ACT #### [facility] [address] [place] [address] Lanadrian Turcios LIPASEon 01-14-2021 Lipase [Catalytic activity/Vol] 42.0 U/L Normal 23.0-300.0 [facility] Comment on above: Performed By: #### C MP, LIPA #### [facility] [address] [place] [address] Lan Karolina PREG HCG QUALon 01-14-2021 , QUAL Negative Normal NEGATIVE [facility] Comment on above: Performed By: #### P REG #### [facility] [address] [place], [place] [id number] Lanadrian Turcios PROF 14(COMP METB)on 021 Albumin [Mass/Vol] 3.7 g/dL Normal 3.5-5.0 [facility] Comment on above: Performed By: #### C PATRICIA, LIPA #### [facility] [address] [place], [place] [id number] Lan Karolina Albumin/Globulin [Mass ratio] 0.8 {ratio} Normal [facility] Comment on above: Performed By: #### C PATRICIA, LIPA #### [facility] [address] [place], [place] [address] Lan Karolina ALP [Catalytic activity/Vol] 84 U/L Normal 38-126 [facility] Comment on above: Performed By: #### C MP, LIPA #### [facility] [address] [place], [place] [address] Lan Karolina ALT [Catalytic activity/Vol] 22 U/L Normal 9-52 [facility] Comment on above: Performed By: #### C MP, LIPA #### [facility] [address] [place], [place] [address] Lan Karolina Anion gap [Moles/Vol] 14.3 mmol/L Normal [facility] Comment on above: Performed By: #### C MP, LIPA #### [facility] [address] [place], [place] [address] Lan Karolina AST [Catalytic activity/Vol] 17 U/L Normal 14-36 [facility] Comment on above: Performed By: #### C MP, LIPA #### [facility] [address] [place] [address] Lan Karolina Bilirubin [Mass/Vol] 0.3 mg/dL Normal 0.2-1.3 [facility] Comment on above: Performed By: #### C MP, LIPA #### [facility] [address] [place] [address] Lan Karolina Calcium [Mass/Vol] 9.8 mg/dL Normal 8.4-10.2 [facility] Comment on above: Performed By: #### C MP, LIPA #### [facility] [address] [place] [address] Lan Karolina Chloride [Moles/Vol] 102 mmol/L Normal 98-107 [facility] Comment on above: Performed By: #### C MP, LIPA #### [facility] [address] [place] [address] Lan Karolina CO2 [Moles/Vol] 27.7 mmol/L Normal 22.0-30.0 [facility] Comment on above: Performed By: #### C MP, LIPA #### [facility] [address] [place] [address] Lan Karolina Creatinine [Mass/Vol] 0.70 mg/dL Normal 0.52-1.04 [facility] Comment on above: Performed By: #### C MP, LIPA #### [facility] [address] [place] [address] Lan Karolina EGFR-AF PUERTO RICAN >60 Normal >=60 [facility] Comment on above: Performed By: #### C MP, LIPA #### [facility] [address] [place] [address] Lan Karolina EGFR-NON AF PUERTO RICAN >60 Normal >=60 [facility] Comment on above: Performed By: #### C MP, LIPA #### [facility] [address] [place] [address] Lan Karolina Globulin (S) [Mass/Vol] 4.4 g/dL Normal [facility] Comment on above: Performed By: #### C MP, LIPA #### [facility] [address] [place] [id number] Lan Karolina Glucose [Mass/Vol] 108 mg/dL Critically high 74-106 [facility] Comment on above: Performed By: #### C MP, LIPA #### [facility] [address] [place] [address] Lan Karolina Potassium [Moles/Vol] 4.0 mmol/L Normal 3.4-5.0 [facility] Comment on above: Performed By: #### C MP, LIPA #### [facility] [address] [place] [id number] Lan Karolina Protein [Mass/Vol] 8.1 g/dL Normal 6.1-8.2 [facility] Comment on above: Performed By: #### C PATRICIA, LIPA #### [facility] [address] [place] [address] Lan Karolina Sodium [Moles/Vol] 140 mmol/L Normal 137-145 [facility] Comment on above: Performed By: #### C PATRICIA, LIPA #### [facility] [address] [place] [address] Lan Karolina Urea nitrogen [Mass/Vol] 12.0 mg/dL Normal 7.0-17.0 [facility] Comment on above: Performed By: #### C MP, LIPA #### [facility] [address] [place] [address] Lan Karolina Urea nitrogen/Creatinine [Mass ratio] 17.1 mg/mg Normal [facility] Comment on above: Performed By: #### C MP, LIPA #### [facility] [address] [place], [place] [id number] Lan Karolina PROTIMEon 01-14-2021 INR Coag (PPP) [Relative time] 0.96 {INR} Normal [facility] Comment on above: Performed By: #### P TT, PT #### [facility] [address] [place], [place] [id number] Lan Karolina INR GUIDELINES SEE BELOW Normal [facility] Comment on above: Result Comment: BRANT RED INR: 2.0 - 3.0 CONDITIONS NOT LISTED BELOW 2.5 - 3.5 FOR PROSTHETIC HEART VALVE REPLACEMENT 2.5 - 3.5 RECURRENT THROMBOSIS Performed By: #### P TT, PT #### [facility] [address] [place], [place] [address] Lan Turcios PT Coag (PPP) [Time] 10.4 s Normal 9.0-11.6 [facility] Comment on above: Performed By: #### P TT, PT #### [facility] [address] [place], [place] [address] Lan Turcios PTTon 01-14-2021 aPTT Coag (Bld) [Time] 26.8 s Normal 22.3-36.2 [facility] Comment on above: Performed By: #### P TT, PT #### [facility] [address] [place], [place] [address] Lan Turcios Basic Metabolic PanelOrdered By: Maynor Rivera on 11-25-2020 Anion gap [Moles/Vol] 12 mmol/L 9 - 17 mmol/L [employer] Phone: Calcium [Mass/Vol] 7.6 mg/dL Low 8.6 - 10. 4 mg/dL [employer] Phone: Chloride [Moles/Vol] 104 mmol/L 98 - 10 7 mmol/L [employer] Phone: CO2 [Moles/Vol] 20 mmol/L 20 - 31 mmol/L [employer] Phone: Creatinine [Mass/Vol] 0.55 mg/dL 0.50 - 0.90 mg/dL [employer] Phone: GFR >60 >60 mL/min [employer] Phone: GFR Non- >60 >60 mL/min [employer] Phone: Glucose [Mass/Vol] 127 mg/dL High 70 - 99 mg/dL [employer] Phone: Interpretation and review of laboratory results Abnormal [employer] Phone: Potassium [Moles/Vol] 4.1 mmol/L 3.7 - 5.3 mmol/L [employer] Work Phone: Sodium [Moles/Vol] 136 mmol/L 135 - 144 mmol/L [employer] Phone: Urea nitrogen (BldV) [Mass/Vol] 12 mg/dL 6 - 20 mg/dL [employer] Work Phone: Urea nitrogen/Creatinine (Bld) [Mass ratio] 22 High [employer] Phone: [employer] Phone: CBC Auto DifferentialOrdered By: Maynor Rivera on 11-25-2020 Absolute Eos # 0.28 [employer] [facility] Work Phone: Absolute Immature Granulocyte 0.03 [employer] Work Phone: Absolute Lymph # 2.39 [employer] Work Phone: Absolute Bowie # 0.67 [employer] Work Phone: Basophils (Bld) [#/Vol] 0.07 10*3/uL [employer] Work Phone: Basophils/100 WBC (Bld) 1 % 0 - 2 % [employer] Work Phone: Differential Type NOT REPORTED [employer] Phone: Eosinophils/100 WBC (Bld) 4 % 1 - 4 % [employer] Work Phone: Hematocrit (Bld) [Volume fraction] 38.3 % 36.3 - 47.1 % [employer] Phone: Hemoglobin.gastrointes tinal spec 1 Ql (Stl) 12.0 g/dL 11.9 - 15.1 g/dL [employer] Phone: Immature granulocytes/100 WBC (Bld) 1 % High 0 [employer] Phone: Interpretation and review of laboratory results Abnormal [employer] Phone: Lymphocytes/100 WBC (Bld) 37 % 24 - 43 % [employer] Phone: MCH (RBC) [Entitic mass] 29.8 pg 25.2 - 33.5 pg [employer] Phone: MCHC (RBC) [Mass/Vol] 31.3 g/dL 28.4 - 34.8 g/dL [employer] Phone: MCV (RBC) [Entitic vol] 95.0 fL 82.6 - 102.9 fL [employer] Phone: Monocytes/100 WBC (Bld) 11 % 3 - 12 % [employer] Phone: NRBC Automated 0.0 0.0 per 100 WBC [employer] Phone: Platelet distribution width (Bld) [Ratio] 13.5 % 11.8 - 14.4 % [employer] Phone: Platelet Estimate NOT REPORTED [employer] Phone: Platelet mean volume (Bld) [Entitic vol] 10.5 fL 8.1 - 13.5 fL [employer] Phone: Platelets (Bld) [#/Vol] 314 10*3/uL [employer] Phone: RBC (Bld) [#/Vol] 4.03 10*6/uL 3.95 - 5.1 1 m/uL [employer] Phone: RBC (Bld) [#/Vol] NOT REPORTED [employer] Phone: Segmented neutrophils/100 WBC (Bld) 46 % 36 - 65 % [employer] Phone: Segs Absolute 2.96 [employer] Work Phone: WBC (Bld) [#/Vol] 6.4 10*3/uL [employer] Phone: WBC (Bld) [#/Vol] NOT REPORTED [employer] Phone: [employer] Phone: Laboratory - Chemistry and C hemistry - challengeOrdered By: Maynro Rivera on 11-25-2020 GFR/1.73 sq M.predicted MDRD (S/P/Bld) [Vol rate/Area] [employer] Phone: Comment on above: Average GFR for 40-4 9 years old: 99 mL/min/1.73sq m Chronic Kidney Disease: <60 mL/min/1.73sq m Kidney failure: <15 mL/min/1.73sq m eGFR calculated using average adult body mass. Additional eGFR calculator available at: http://www.[employer]/multiple_crcl_2012.htm Stage 1: Some kidney damage normal GFR Stage 2: Mild kidney damage GFR 60-89 Stage 3: Moderate kidney damage GFR 30-59 Stage 4: Severe kidney damage GFR 15-29 Stage 5: Severe kidney damage GFR <15 ESRD - chronic treatment by dialysis or transplant PTH, IntactOrdered By: Maynor Rivera on 11-25-2020 Interpretation and review of laboratory results Abnormal [employer] Phone: Pth Intact 105.3 pg/mL High 15.0 - 65.0 pg/mL [employer] Phone: Comment on above: SAMPLES FROM PATIENT S ROUTINELY RECEIVING HIGH DOSE BIOTIN THERAPY MAY SHOW FALSELY DEPRESSED RESULTS. ADDITIONAL INFORMATION MAY BE REQUIRED FOR DIAGNOSIS. [employer] Phone: TSH With Reflex [id number] B y: Maynor Rivera on 11-25-2020 TSH Qn 2.04 m[IU]/L [employer] Phone: [employer] Phone: Vitamin B12 & FolateOrdered By: Maynor Rivera on 11-25-2020 Cobalamin (Vitamin B12) [Mass/Vol] 248 pg/mL 232 - 1245 pg/mL [employer] Phone: Folate 9.2 ng/mL >4.8 [employer] Phone: [employer] Phone: Vitamin D 25 HydroxyOrdered By: Maynor Rivera on 11-25-2020 Interpretation and review of laboratory results Abnormal [employer] Phone: Vit D, 25-Hydroxy 6.3 ng/mL Low 30.0 - 100 .0 ng/mL [employer] Phone: Comment on above: Reference Range: Vitamin D status Range Deficiency <20 ng/mL Mild Deficiency 20-30 ng/mL Sufficiency 30-100 ng/mL Toxicity >100 ng/mL [employer] Phone: Otheron 06-28-2020 EXAMINATION: THREE XRAY VIEWS [...] right-sided rib fracture deformity evident. Prior cholecystectomy. [employer] Phone: Mian, Mhpn Incoming Radiant Results From [employer] - 06/28/2020 2:42 PM EST EXAMINATION: THREE [...] acute displaced right-sided rib fracture deformity evident. [employer] Work Phone: Left shoulder: No acute fracture or dislocation. Left hand: No acute fracture or dislocation. Right knee: No acute fracture or dislocation. Pelvis: No acute osseous abnormality. Chest/right-sided ribs: 1. No acute focal airspace consolidation. 2. No acute displaced right-sided rib fracture deformity evident. [employer] Work Phone: CBC Auto Differentialon Basophils (Bld) [#/Vol] 0.07 10*3/uL [place] Basophils/100 WBC (Bld) 1 % 0 - 2 % [place] Differential Type NOT REPORTED [place] Eosinophils (Bld) [#/Vol] 0.28 10*3/uL [place] Eosinophils/100 WBC (Bld) 4 % 1 - 4 % [place] Erythrocyte distribution width (RBC) [Ratio] 13.9 % 11.8 - 14.4 % [place] Hematocrit (Bld) [Volume fraction] 40.5 % 36.3 - 47.1 % [place] Hemoglobin (Bld) [Mass/Vol] 12.9 g/dL 11.9 - 15.1 g/dL [place] Immature granulocytes (Bld) [#/Vol] 0.04 10*3/uL [place] Immature granulocytes (Bld) [#/Vol] 1 % High 0 [place] Interpretation and review of laboratory results Abnormal [place] Lymphocytes (Bld) [#/Vol] 3.14 10*3/uL [place] Lymphocytes/100 WBC (Bld) 39 % 24 - 43 % [place] MCH (RBC) [Entitic mass] 29.1 pg 25.2 - 33.5 pg [place] MCHC (RBC) [Mass/Vol] 31.9 g/dL 28.4 - 34.8 g/dL [place] MCV (RBC) [Entitic vol] 91.4 fL 82.6 - 102.9 fL [place] Monocytes (Bld) [#/Vol] 0.58 10*3/uL [place] Monocytes/100 WBC (Bld) 7 % 3 - 12 % [place] Platelet mean volume (Bld) [Entitic vol] 10.3 fL 8.1 - 13.5 fL [place] Platelets (Bld) [#/Vol] 365 10*3/uL [place] Platelets (Bld) [#/Vol] NOT REPORTED [place] RBC (Bld) [#/Vol] 4.43 10*6/uL 3.95 - 5.1 1 m/uL [place] RBC morphology finding Nom (Bld) NOT REPORTED [place] Segmented neutrophils/100 WBC (Bld) 48 % 36 - 65 % [place] Segs Absolute 3.98 [place] WBC (Bld) [#/Vol] 0.0 10*3/uL 0.0 per 10 0 WBC [place] WBC (Bld) [#/Vol] 8.1 10*3/uL [place] WBC Morphology NOT REPORTED [place] Ferritinon 05-22-2020 Ferritin [Mass/Vol] 157 ug/L High 13 - 150 ug/L [place] Interpretation and review of laboratory results Abnormal [place] XR CHEST PORTABLEon 04-04-20 No acute cardiopulmonary abnormality. [place] EXAMINATION: ONE XRAY VIEW OF THE CHEST 04/04/2020 9:31 pm COMPARISON: 06/23/2019 HISTORY: ORDERING SYSTEM PROVIDED HISTORY: cough TECHNOLOGIST PROVIDED HISTORY: cough FINDINGS: The lungs are clear. The cardiac and mediastinal contours are normal. There is no pleural effusion or pneumothorax. No acute osseous abnormality is identified. [place], [place] Mian, Mhpn Incoming Radiant Results From [employer] - 04/04/2020 9:46 PM EST EXAMINATION: ONE XRAY VIEW OF THE CHEST 04/04/2020 9:31 pm COMPARISON: 06/23/2019 HISTORY: ORDERING SYSTEM PROVIDED HISTORY: cough TECHNOLOGIST PROVIDED HISTORY: cough FINDINGS: The lungs are clear. The cardiac and mediastinal contours are normal. There is no pleural effusion or pneumothorax. No acute osseous abnormality is identified. IMPRESSION: No acute cardiopulmonary abnormality. [place] Basic Metabolic Panelon Anion gap [Moles/Vol] 13 mmol/L 9 - 17 mmol/L [place] Bun/Cre Ratio 20 [place] Calcium [Mass/Vol] 9.3 mg/dL 8.6 - 10. 4 mg/dL [place] Chloride [Moles/Vol] 103 mmol/L 98 - 10 7 mmol/L [place] CO2 [Moles/Vol] 21 mmol/L 20 - 31 mmol/L [place] Creatinine [Mass/Vol] 0.59 mg/dL 0.5 - 0.9 mg/dL [place] GFR >60 >60 mL/min [place] GFR Non- >60 >60 mL/min [place] Glucose [Mass/Vol] 105 mg/dL High 70 - 99 mg/dL [place] Interpretation and review of laboratory results Abnormal [place] Potassium [Moles/Vol] 4.0 mmol/L 3.7 - 5.3 mmol/L [place] Sodium [Moles/Vol] 137 mmol/L 135 - 144 mmol/L [place] Urea nitrogen [Mass/Vol] 12 mg/dL 6 - 20 mg/dL [place] CBC Auto Differentialon Basophils (Bld) [#/Vol] 0.07 10*3/uL [place] Basophils/100 WBC (Bld) 1 % 0 - 2 % [place] Differential Type NOT REPORTED [place] Eosinophils (Bld) [#/Vol] 0.35 10*3/uL [place] Eosinophils/100 WBC (Bld) 4 % 1 - 4 % [place] Erythrocyte distribution width (RBC) [Ratio] 13.7 % 11.8 - 14.4 % [place] Hematocrit (Bld) [Volume fraction] 42.7 % 36.3 - 47.1 % [place] Hemoglobin (Bld) [Mass/Vol] 13.8 g/dL 11.9 - 15.1 g/dL [place] Immature granulocytes (Bld) [#/Vol] 10*3/uL [place] Immature granulocytes (Bld) [#/Vol] 0 % 0 [place] Lymphocytes (Bld) [#/Vol] 2.35 10*3/uL [place] Lymphocytes/100 WBC (Bld) 27 % 24 - 43 % [place] MCH (RBC) [Entitic mass] 28.9 pg 25.2 - 33.5 pg [place] MCHC (RBC) [Mass/Vol] 32.3 g/dL 28.4 - 34.8 g/dL [place] MCV (RBC) [Entitic vol] 89.3 fL 82.6 - 102.9 fL [place] Monocytes (Bld) [#/Vol] 0.49 10*3/uL [place] Monocytes/100 WBC (Bld) 6 % 3 - 12 % [place] Platelet mean volume (Bld) [Entitic vol] 10.8 fL 8.1 - 13.5 fL [place] Platelets (Bld) [#/Vol] NOT REPORTED [place] Platelets (Bld) [#/Vol] 348 10*3/uL [place] RBC (Bld) [#/Vol] 4.78 10*6/uL 3.95 - 5.1 1 m/uL [place] RBC morphology finding Nom (Bld) NOT REPORTED [place] Segmented neutrophils/100 WBC (Bld) 62 % 36 - 65 % [place] Segs Absolute 5.35 [place] WBC (Bld) [#/Vol] 0.0 10*3/uL 0.0 per 10 0 WBC [place] WBC (Bld) [#/Vol] 8.6 10*3/uL [facility] [place] WBC Morphology NOT REPORTED [facility] CONTR Mazin 11-13-2019 Mian, Mhpn Incoming Radiant Results From [employer] - 11/13/2019 9:48 AM EDT EXAMINATION: CT [...] evidence for urinary obstruction. RECOMMENDATIONS: [facility] CT OF THE ABDOMEN AND PELVIS [...] No lymphadenopathy within the abdomen or pelvis. [place] No evidence for acute intra-abdominal or intrapelvic pathology. No bowel obstruction or inflammation. No free intraperitoneal air or fluid. No evidence for urinary obstruction. RECOMMENDATIONS: Insert apart [place], [place] Lactate, Sepsison 11-13-2019 Lactic Acid, Sepsis 0.8 mmol/L 0.5 - 1. 9 mmol/L [place] Lactic Acid, Sepsis, Whole Blood NOT REPORTED 0.5 - 1.9 mmol/L [place] Lipaseon 11-13-2019 Lipase [Catalytic activity/Vol] 15 U/L 13 - 60 U/L [place] Metabolic Panelon 11-13-2019 GFR/1.73 sq M predicted among non-blacks MDRD (S/P/Bld) [Vol rate/Area] [place] Comment on above: Average GFR for 40-4 9 years old: 99 mL/min/1.73sq m Chronic Kidney Disease: <60 mL/min/1.73sq m Kidney failure: <15 mL/min/1.73sq m eGFR calculated using average adult body mass. Additional eGFR calculator available at: http://www.[employer].com/multiple_crcl_2012.htm Stage 1: Some kidney damage normal GFR Stage 2: Mild kidney damage GFR 60-89 Stage 3: Moderate kidney damage GFR 30-59 Stage 4: Severe kidney damage GFR 15-29 Stage 5: Severe kidney damage GFR <15 ESRD - chronic treatment by dialysis or transplant , Urineon 0 Beta HCG ( test) Ql (U) Negative NEGATIVE [place] Comment on above: Specimens with hCG l evels near the threshold of the test (25 mIU/mL) may give a negative or indeterminate result. In such cases, another test should be performed with a new specimen in 48-72 hours. If early is suspected clinically in this setting, correlation with quantitative serum b-hCG level is suggested. [facility] [employer] has confirmed the use of plasma for this test. This has not been cleared or approved by the U.S. Food and Drug Administration. The FDA has determined that such clearance is not necessary. Urinalysis with microscopico n 11-03-2019 Amorphous, UA NOT REPORTED None [place], [place] Bacteria, UA 1+ Abnormal None [place], [place] Bilirubin Urine Negative NEGATIVE [place] Casts UA NOT REPORTED /LPF [place], [place] Color, UA YELLOW YELLOW [place], [place] Crystals, UA NOT REPORTED None /HPF [place], [place] Epithelial Cells UA 5 TO 10 [place] Glucose, Ur Negative NEGATIVE [place] Interpretation and review of laboratory results Abnormal [place] Ketones Ql (U) Negative NEGATIVE [place] Leukocyte esterase Test strip Ql (U) Negative NEGATIVE [place] Mucus, UA TRACE Abnormal None [place] Nitrite, Urine Negative NEGATIVE [place] Other Observations UA NOT REPORTED NOT REQ. M [place] pH, UA 6.0 [place] Protein (U) [Mass/Vol] Negative NEGATIVE [place] RBC (U) [#/Vol] None [place] Renal Epithelial, UA NOT REPORTED 0 /HPF [place] Specific [place], UA 1.020 [place], [place] Trichomonas, UA NOT REPORTED None Ana Maria Byrd [facility] [place] Turbidity UA SLIGHTLY CLOUDY Abnormal CLEAR [facility] [place] Urinalysis Comments NOT REPORTED [place] Urine Hgb Negative NEGATIVE [place] Urobilinogen, Urine Normal Normal [place] WBC, UA 2 TO 5 [place] Yeast, UA NOT REPORTED None [facility] [place] XR LUMBAR SPINE (2-3 VIEWS)o n 11-03-2019 1. No radiographic evidence of acute lumbar spine trauma. 2. Moderate L5/S1 spondylosis. [place] Mian, Mhpn Incoming Radiant Results From [employer] - 11/03/2019 1:34 AM EDT EXAMINATION: THREE [...] lumbar spine trauma. 2. Moderate L5/S1 spondylosis. [place] EXAMINATION: THREE XRAY VIEWS OF THE [...] normal limits. Paravertebral soft tissues are unremarkable. [place] B12/Folate Panelon 0 Cobalamin (Vitamin B12) [Mass/Vol] 215 pg/mL Low 232-1245 [facility] Comment on above: Performed By: #### B 12MAR LEOS, VD25 #### [facility] [address] [place] [id number] Brewery P[employer]: Higinio Bullock MD Folic Acid 12.7 ng/mL Normal >4.8 [facility] Comment on above: Performed By: #### Giovanna 12FOL, FERI, VD25 #### [facility] [address] [place] [id number] Brewery Pumper: Higinio Bullock MD Ferritinon 07-19-2019 Ferritin [Mass/Vol] 14 ug/L Normal 13-150 [facility] Comment on above: Performed By: #### Giovanna 12FOJosias FERI, VD25 #### [facility] [address] [place] [id number] [employer] P[employer]: Higinio Bullock MD Vitamin D 25 OHon 07-19-2019 Vitamin D 25 OH 6.5 ng/mL Low 30.0-100.0 [facility] Comment on above: Result Comment: Reference Range: Vitamin D status Range Deficiency <20 ng/mL Mild Deficiency 20-30 ng/mL Sufficiency 30-100 ng/mL Toxicity >100 ng/mL Performed By: #### Giovanna 12FOJosias FERI, VD25 #### [facility] [employer] [address] [place] [id number] [employer] P[employer]: Higinio Bullock MD Ferritinon 07-18-2019 Ferritin [Mass/Vol] 14 ug/L 13 - 150 ug/L [place] Vitamin B12 & Folateon 07-17 Cobalamin (Vitamin B12) [Mass/Vol] 215 pg/mL Low 232 - 1245 pg/mL [place] Folate 12.7 ng/mL >4.8 [place] Interpretation and review of laboratory results Abnormal [place] Vitamin D 25 Hydroxyon 07-17 Interpretation and review of laboratory results Abnormal [place] Vit D, 25-Hydroxy 6.5 ng/mL Low 30 - 100 ng/mL [place] Comment on above: Reference Range: Vitamin D status Range Deficiency <20 ng/mL Mild Deficiency 20-30 ng/mL Sufficiency 30-100 ng/mL Toxicity >100 ng/mL Brain Natriuretic Peptideon 06-23-2019 Natriuretic peptide B (Bld) [Mass/Vol] Pro-BNP Reference Range: [employer] Phone: Comment on above: Rule Out: <300 [place] Zone: Age <50 300-450 Age 50-75 300-900 Age >75 300-1800 Usually represents mild to moderate HF but other cardiopulmonary causes cannot be ruled out. Rule In: Age <50 >450 Age 50-75 >900 Age >75 >1800 Natriuretic peptide B (Bld) [Mass/Vol] pg/mL <300 pg/mL [employer]: Comment on above: Pro-BNP results pawan ot be compared to BNP results. CBC Auto Differentialon Basophils (Bld) [#/Vol] 0.05 10*3/uL [employer] Phone: Basophils/100 WBC (Bld) 1 % 0 - 2 % [employer]: Differential Type NOT REPORTED [employer]: Eosinophils (Bld) [#/Vol] 0.28 10*3/uL [employer] Phone: Eosinophils/100 WBC (Bld) 3 % 1 - 4 % [employer] Phone: Erythrocyte distribution width (RBC) [Ratio] 14.6 % High 11.8 - 14.4 % [employer] Phone: Hematocrit (Bld) [Volume fraction] 38.8 % 36.3 - 47.1 % [employer] Phone: Hemoglobin (Bld) [Mass/Vol] 12.0 g/dL 11.9 - 15.1 g/dL [employer] Phone: Immature granulocytes (Bld) [#/Vol] 0.03 10*3/uL [employer] Phone: Immature granulocytes (Bld) [#/Vol] 0 % 0 [employer]: Interpretation and review of laboratory results Abnormal [employer] Phone: Lymphocytes (Bld) [#/Vol] 2.83 10*3/uL [employer] Phone: Lymphocytes/100 WBC (Bld) 35 % 24 - 43 % [employer] Phone: MCH (RBC) [Entitic mass] 26.3 pg 25.2 - 33.5 pg [employer] Phone: MCHC (RBC) [Mass/Vol] 30.9 g/dL 28.4 - 34.8 g/dL [employer] Phone: MCV (RBC) [Entitic vol] 85.1 fL 82.6 - 102.9 fL [employer] Phone: Monocytes (Bld) [#/Vol] 0.56 10*3/uL [employer] Phone: Monocytes/100 WBC (Bld) 7 % 3 - 12 % [employer] Phone: Platelet mean volume (Bld) [Entitic vol] 11.2 fL 8.1 - 13.5 fL [employer] Phone: Platelets (Bld) [#/Vol] NOT REPORTED [employer] Phone: Platelets (Bld) [#/Vol] 360 10*3/uL [employer] Phone: RBC (Bld) [#/Vol] 4.56 10*6/uL 3.95 - 5.1 1 m/uL [employer] Phone: RBC morphology finding Nom (Bld) NOT REPORTED [employer]: Segmented neutrophils/100 WBC (Bld) 54 % 36 - 65 % [employer]: Segs Absolute 4.38 [employer] Work Phone: WBC (Bld) [#/Vol] 0.0 10*3/uL 0.0 per 10 0 WBC [employer] Phone: WBC (Bld) [#/Vol] 8.1 10*3/uL [employer] Phone: WBC Morphology NOT REPORTED [facility] Work Phone: Comprehensive Metabolic Pane l w/ Reflex to MGon 06-23-2019 Albumin [Mass/Vol] 4.5 g/dL 3.5 - 5.2 g/dL [employer]: Albumin/Globulin [Mass ratio] 1.2 {ratio} [employer] Phone: ALP [Catalytic activity/Vol] 70 U/L 35 - 104 U/L [employer] Phone: ALT [Catalytic activity/Vol] 7 U/L 5 - 33 U/L [employer] Phone: Anion gap [Moles/Vol] 12 mmol/L 9 - 17 mmol/L [employer] Phone: AST [Catalytic activity/Vol] 32 U/L High <32 [employer] Phone: Bilirubin Ql (U) 0.30 mg/dL 0.3 - 1.2 mg/dL [employer] Phone: Bun/Cre Ratio 26 High [employer] [facility] [employer] Work Phone: Calcium [Mass/Vol] 9.0 mg/dL 8.6 - 10. 4 mg/dL [employer] Phone: Chloride [Moles/Vol] 100 mmol/L 98 - 10 7 mmol/L [employer] Work Phone: CO2 [Moles/Vol] 22 mmol/L 20 - 31 mmol/L [employer] Work Phone: Creatinine [Mass/Vol] 0.58 mg/dL 0.5 - 0.9 mg/dL [employer] Phone: GFR >60 >60 mL/min [employer] Phone: GFR Non- >60 >60 mL/min [employer] Phone: Glucose [Mass/Vol] 112 mg/dL High 70 - 99 mg/dL [employer]: Interpretation and review of laboratory results Abnormal [employer]: Potassium [Moles/Vol] 5.7 mmol/L High 3.7 - 5.3 mmol/L [employer] Phone: Protein [Mass/Vol] 8.3 g/dL 6.4 - 8.3 g/dL [employer] Phone: Sodium [Moles/Vol] 134 mmol/L Low 135 - 144 mmol/L [employer] Phone: Urea nitrogen [Mass/Vol] 15 mg/dL 6 - 20 mg/dL [employer] Phone: D-Dimer, Quantitativeon D-Dimer, Quant 0.39 [employer] Work Phone: Comment on above: Elevated levels [...] activity/Vol] 19 U/L 13 - 60 U/L [employer] Phone: Metabolic Panelon 06-23-2019 GFR/1.73 sq M predicted among non-blacks MDRD (S/P/Bld) [Vol rate/Area] [employer]: Comment on above: Average GFR for 40-4 9 years old: 99 mL/min/1.73sq m Chronic Kidney Disease: <60 mL/min/1.73sq m Kidney failure: <15 mL/min/1.73sq m eGFR calculated using average adult body mass. Additional eGFR calculator available at: http://www.[employer]/multiple_crcl_2012.htm Stage 1: Some kidney damage normal GFR Stage 2: Mild kidney damage GFR 60-89 Stage 3: Moderate kidney damage GFR 30-59 Stage 4: Severe kidney damage GFR 15-29 Stage 5: Severe kidney damage GFR <15 ESRD - chronic treatment by dialysis or transplant Troponinon 06-23-2019 Troponin I.cardiac [Mass/Vol] NOT REPORTED [employer]: Troponin T.cardiac [Mass/Vol] NOT REPORTED <0.03 ng/mL [employer] Phone: Troponin, High Sensitivity <6 0 - 14 ng/L [employer]: Comment on above: High Sensitivity Troponin values cannot be compared with other Troponin methodologies. Patients with high levels of Biotin oral intake (i.e >5mg/day) may have falsely decreased Troponin levels. Samples collected within 8 hours of biotin intake may require additional information for diagnosis. Troponin I.cardiac [Mass/Vol] NOT REPORTED [employer] Phone: Troponin T.cardiac [Mass/Vol] NOT REPORTED <0.03 ng/mL [employer] Phone: Troponin, High Sensitivity <6 0 - 14 ng/L [employer]: Comment on above: High Sensitivity Troponin values cannot be compared with other Troponin methodologies. Patients with high levels of Biotin oral intake (i.e >5mg/day) may have falsely decreased Troponin levels. Samples collected within 8 hours of biotin intake may require additional information for diagnosis. XR CHEST PORTABLEon 06-23-19 20 Mian, Mhpn Incoming Radiant Results From [employer] - 06/23/2019 8:56 PM EST EXAMINATION: ONE XRAY VIEW OF THE CHEST 06/23/2019 8:47 pm COMPARISON: 01/30/2017 HISTORY: ORDERING SYSTEM PROVIDED HISTORY: DEMETRIUS GODWIN TECHNOLOGIST PROVIDED HISTORY: DEMETRIUS GODWIN Initial exam FINDINGS: The lungs are without acute focal process. There is no effusion or pneumothorax. The cardiomediastinal silhouette is without acute process. The osseous structures are without acute process. IMPRESSION: No acute process. [employer] Work Phone: EXAMINATION: ONE XRAY VIEW OF THE CHEST 06/23/2019 8:47 pm COMPARISON: 01/30/2017 HISTORY: ORDERING SYSTEM PROVIDED HISTORY: DEMETRIUS GODWIN TECHNOLOGIST PROVIDED HISTORY: DEMETRIUS GODWIN Initial exam FINDINGS: The lungs are without acute focal process. There is no effusion or pneumothorax. The cardiomediastinal silhouette is without acute process. The osseous structures are without acute process. [employer] Work Phone: No acute process. [employer] Work Phone: CBC Auto Differentialon 10-0 Basophils (Bld) [#/Vol] 0.07 10*3/uL [place] Basophils/100 WBC (Bld) 1 % 0 - 2 % [place] Differential Type NOT REPORTED [place] Eosinophils (Bld) [#/Vol] 0.38 10*3/uL [place] Eosinophils/100 WBC (Bld) 5 % High 1 - 4 % [place] Erythrocyte distribution width (RBC) [Ratio] 13.6 % 11.8 - 14.4 % [place] Hematocrit (Bld) [Volume fraction] 36.5 % 36.3 - 47.1 % [place] Hemoglobin (Bld) [Mass/Vol] 11.5 g/dL Low 11.9 - 15.1 g/dL [place] Immature granulocytes (Bld) [#/Vol] 10*3/uL [place] Immature granulocytes (Bld) [#/Vol] 0 % 0 [place] Interpretation and review of laboratory results Abnormal [place] Lymphocytes (Bld) [#/Vol] 2.86 10*3/uL [place] Lymphocytes/100 WBC (Bld) 40 % 24 - 43 % [place] MCH (RBC) [Entitic mass] 27.3 pg 25.2 - 33.5 pg [place] MCHC (RBC) [Mass/Vol] 31.5 g/dL 28.4 - 34.8 g/dL [place] MCV (RBC) [Entitic vol] 86.7 fL 82.6 - 102.9 fL [place] Monocytes (Bld) [#/Vol] 0.69 10*3/uL [place] Monocytes/100 WBC (Bld) 10 % 3 - 12 % [place] Platelet mean volume (Bld) [Entitic vol] 11.3 fL 8.1 - 13.5 fL [place] Platelets (Bld) [#/Vol] 347 10*3/uL [place] Platelets (Bld) [#/Vol] NOT REPORTED [place] RBC (Bld) [#/Vol] 4.21 10*6/uL 3.95 - 5.1 1 m/uL [place] RBC morphology finding Nom (Bld) NOT REPORTED [place] Segmented neutrophils/100 WBC (Bld) 44 % 36 - 65 % [place] Segs Absolute 3.08 [place] WBC (Bld) [#/Vol] 0.0 10*3/uL 0.0 per 10 0 WBC [place] WBC (Bld) [#/Vol] 7.1 10*3/uL [place] WBC Morphology NOT REPORTED [place] Comprehensive Metabolic Pane lea 02-20-2019 Albumin [Mass/Vol] 3.9 g/dL 3.5 - 5.2 g/dL [place] Albumin/Globulin [Mass ratio] 1.1 {ratio} [place] ALP [Catalytic activity/Vol] 68 U/L 35 - 104 U/L [place] ALT [Catalytic activity/Vol] 6 U/L 5 - 33 U/L [place] Anion gap [Moles/Vol] 13 mmol/L 9 - 17 mmol/L [place] AST [Catalytic activity/Vol] 13 U/L <32 [place] Bilirubin Ql (U) 0.31 mg/dL 0.3 - 1.2 mg/dL [place] Bun/Cre Ratio 15 [place] Calcium [Mass/Vol] 9.1 mg/dL 8.6 - 10. 4 mg/dL [place] Chloride [Moles/Vol] 104 mmol/L 98 - 10 7 mmol/L [place] CO2 [Moles/Vol] 22 mmol/L 20 - 31 mmol/L [place] Creatinine [Mass/Vol] 0.52 mg/dL 0.5 - 0.9 mg/dL [place] GFR >60 >60 mL/min [place] GFR Non- >60 >60 mL/min [place] Glucose [Mass/Vol] 90 mg/dL 70 - 99 mg/dL [place] Potassium [Moles/Vol] 3.8 mmol/L 3.7 - 5.3 mmol/L [place] Protein [Mass/Vol] 7.5 g/dL 6.4 - 8.3 g/dL [place] Sodium [Moles/Vol] 139 mmol/L 135 - 144 mmol/L [place] Urea nitrogen [Mass/Vol] 8 mg/dL 6 - 20 mg/dL [place] Ferritinon 02-20-2019 Ferritin [Mass/Vol] 15 ug/L 13 - 150 ug/L [place] Iron and TIBCon 02-20-2019 Iron [Mass/Vol] 50 ug/dL 37 - 145 ug/dL [place] Iron Saturation 13 % Low 20 - 55 % [place] TIBC 384 ug/dL 250 - 450 ug/dL [place] UIBC 334 ug/dL 112 - 347 ug/dL [place] Metabolic Panelon 02-20-2019 GFR/1.73 sq M predicted among non-blacks MDRD (S/P/Bld) [Vol rate/Area] [place] Comment on above: Average GFR for 40-4 9 years old: 99 mL/min/1.73sq m Chronic Kidney Disease: <60 mL/min/1.73sq m Kidney failure: <15 mL/min/1.73sq m eGFR calculated using average adult body mass. Additional eGFR calculator available at: http://www.[employer]/multiple_crcl_2012.htm Stage 1: Some kidney damage normal GFR Stage 2: Mild kidney damage GFR 60-89 Stage 3: Moderate kidney damage GFR 30-59 Stage 4: Severe kidney damage GFR 15-29 Stage 5: Severe kidney damage GFR <15 ESRD - chronic treatment by dialysis or transplant Otheron 02-20-2019 Interpretation and review of laboratory results Abnormal [place] Vitamin B12 & Folateon 02-20 Cobalamin (Vitamin B12) [Mass/Vol] 224 pg/mL Low 232 - 1245 pg/mL [place] Folate 10.1 ng/mL >4.8 [place] Interpretation and review of laboratory results Abnormal [place] Vitamin D 25 hydroxyon 02-20 Vit D, 25-Hydroxy 7.3 ng/mL Low 30 - 100 ng/mL [place] Comment on above: Reference Range: Vitamin [...] Strep DNA test is available upon request. [place] Special Requests NOT REPORTED [place] Specimen Description .THROAT [place] Vital Signs Date Time Vital Sign Value Performing Clinician Ella dixon 03-21-2024 10:18-0500 Body height 162.6 cm Janell Baldwin PA-C Work Phone: [facility] 03-21-2024 10:18-0500 Body mass index (BMI) [Ratio] 55.44 kg/m2 Janell KLEIN-C Work Phone: [facility] [employer] [facility] 03-21-2024 10:18-0500 Body weight 146.51 kg Raygan Ciballi PA-C Work Phone: [facility] 03-21-2024 10:18-0500 Diastolic blood pressure 83 mm[Hg] Raygan Ciballi PA-C Work Phone: [facility] 03-21-2024 10:18-0500 SaO2% (BldA) [Mass fraction] 99 % Raygan Ciballi PA-C Work Phone: [facility] 03-21-2024 10:18-0500 Systolic blood pressure 144 mm[Hg] Raygan Ciballi PA-C Work Phone: [facility] 03-21-2024 09:23-0500 Body mass index (BMI) [Ratio] 55.53 kg/m2 Jean Paul Almanzar RD Work Phone: [facility] 03-21-2024 09:23-0500 Body weight 146.[address] Work Phone: [facility] 02-22-2024 10:27-0400 Body height 162.6 cm Raygan Ciballi PA-C Work Phone: [facility] 02-22-2024 10:27-0400 Body mass index (BMI) [Ratio] 54.72 kg/m2 Raygan Ciballi PA-C Work Phone: [facility] 02-22-2024 10:27-0400 Body weight 144.61 kg Raygan Ciballi PA-C Work Phone: [facility] 02-22-2024 10:27-0400 Diastolic blood pressure 74 mm[Hg] Raygan Ciballi PA-C Work Phone: [facility] 02-22-2024 10:27-0400 Heart rate 73 /min Raygan Ciballi PA-C Work Phone: [employer] [facility] 02-22-2024 10:27-0400 SaO2% (BldA) [Mass fraction] 96 % Janell Moralesi PA-C Work Phone: [employer] [facility] 02-22-2024 10:27-0400 Systolic blood pressure 133 mm[Hg] Janell Moralesi PA-C Work Phone: [facility] 02-01-2024 01:04-0400 Heart rate 75 /min Brianna Might [employer] Work Phone: [employer] 02-01-2024 01:04-0400 Respiratory rate 20 /min Brianna Might [employer] Work Phone: [employer] 02-01-2024 00:34-0400 SaO2% (BldA) [Mass fraction] 97 % Brianna Might [employer] Work Phone: [employer] 01-31-2024 22:59-0400 Diastolic blood pressure 102 mm[Hg] Brianna Might [employer] Work Phone: [employer] 01-31-2024 22:59-0400 Systolic blood pressure 137 mm[Hg] Brianna Might [employer] Work Phone: [employer] 01-31-2024 20:00-0400 Body height 162.6 cm Brianna Might [employer] Work Phone: [employer] 01-31-2024 20:00-0400 Body mass index (BMI) [Ratio] 53.21 kg/m2 Brianna Might [employer] Work Phone: [employer] 01-31-2024 20:00-0400 Body temperature 98.2 [degF] Brianna Might [employer] Work Phone: [employer] 01-31-2024 20:00-0400 Body weight 140.62 kg Brianna Might [employer] Work Phone: [employer] 01-23-2024 10:47-0400 Body height 162.6 cm Wayne Joseph DO Work Phone: [facility] 01-23-2024 10:47-0400 Body mass index (BMI) [Ratio] 55.85 kg/m2 Wayne Joseph DO Work Phone: [facility] 01-23-2024 10:47-0400 Body weight 147.6 kg Wayne Joseph DO Work Phone: [facility] 01-23-2024 10:47-0400 Diastolic blood pressure 61 mm[Hg] Wayne Joseph DO Work Phone: [facility] 01-23-2024 10:47-0400 Heart rate 69 /min Wayne Joseph DO Work Phone: [facility] 01-23-2024 10:47-0400 SaO2% (BldA) [Mass fraction] 98 % Wayne Joseph DO Work Phone: [facility] 01-23-2024 10:47-0400 Systolic blood pressure 115 mm[Hg] Wayne Joseph DO Work Phone: [facility] 06-27-2022 12:54-0500 Heart rate 76 /min Surinder Mireles MD Work Phone: [employer] 06-27-2022 12:45-0500 Diastolic blood pressure 86 mm[Hg] Surinder Mireles MD Work Phone: [facility] [employer] 06-27-2022 12:45-0500 Systolic blood pressure 139 mm[Hg] Surinder Mireles MD Work Phone: [facility] [employer] 06-27-2022 12:33-0500 Body mass index (BMI) [Ratio] 56.3 kg/m2 Surinder Mireles MD Work Phone: [facility] [employer] 06-27-2022 12:33-0500 Body temperature 97.59 [degF] Surinder Mireles MD Work Phone: [employer] 06-27-2022 12:33-0500 Body weight 148.78 kg Surinder Mireles MD Work Phone: [employer] 06-27-2022 12:33-0500 Respiratory rate 16 /min Surinder Mireles MD Work Phone: [employer] 06-27-2022 12:33-0500 SaO2% (BldA) [Mass fraction] 98 % Surinder Mireles MD Work Phone: [facility] [employer] 02-12-2021 16:49-0400 Body mass index (BMI) [Ratio] 52.35 kg/m2 Ebony Bonds DO Work Phone: [employer] Work Phone: 02-12-2021 16:49-0400 Body temperature 98.01 [degF] Ebony Bonds DO Work Phone: [employer] Work Phone: 02-12-2021 16:49-0400 Body weight 138.35 kg Ebony Bonds DO Work Phone: [employer] Phone: 02-12-2021 16:49-0400 Diastolic blood pressure 75 mm[Hg] Ebony Bonds DO Work Phone: [place] Work Phone: 02-12-2021 16:49-0400 Heart rate 95 /min Ebony Bonds DO Work Phone: [employer] Work Phone: 02-12-2021 16:49-0400 Respiratory rate 18 /min Ebony Bonds DO Work Phone: [employer] Work Phone: 02-12-2021 16:49-0400 SaO2% (BldA) [Mass fraction] 95 % Ebony Bonds DO Work Phone: [employer] Work Phone: 02-12-2021 16:49-0400 Systolic blood pressure 108 mm[Hg] Ebony Bonds DO Work Phone: [facility] [employer] Work Phone: 12-14-2020 16:01-0400 Body height 163.83 cm [employer] 12-14-2020 16:01-0400 Body mass index (BMI) [Ratio] 53.74 kg/m2 [employer] 12-14-2020 16:01-0400 Body surface area Derived from formula 2.56 m2 [employer] 12-14-2020 16:01-0400 Body weight 144.24 kg [employer] 12-14-2020 16:01-0400 Diastolic blood pressure 90 mm[Hg] [employer] 12-14-2020 16:01-0400 Heart rate 72 /min [employer] 12-14-2020 16:01-0400 Systolic blood pressure 128 mm[Hg] [employer] 12-07-2020 11:36-0400 Body height 163.83 cm [employer] 12-07-2020 11:36-0400 Body mass index (BMI) [Ratio] 54.16 kg/m2 [employer] 12-07-2020 11:36-0400 Body surface area Derived from formula 2.57 m2 [employer] 12-07-2020 11:36-0400 Body weight 145.38 kg [employer] 12-07-2020 11:36-0400 Diastolic blood pressure 90 mm[Hg] [employer] 12-07-2020 11:36-0400 Heart rate 80 /min [employer] 12-07-2020 11:36-0400 Systolic blood pressure 130 mm[Hg] [employer] 10-23-2020 18:51-0400 Body temperature 97.7 [degF] Pily Mariscal MD Work Phone: [place] Work Phone: 10-23-2020 18:51-0400 Diastolic blood pressure 92 mm[Hg] Pily Mariscal MD Work Phone: [place] Work Phone: 10-23-2020 18:51-0400 Heart rate 89 /min Pily Mariscal MD Work Phone: [place] Work Phone: 10-23-2020 18:51-0400 Respiratory rate 16 /min Pily Mariscal MD Work Phone: [employer] Work Phone: 10-23-2020 18:51-0400 SaO2% (BldA) [Mass fraction] 100 % Pily Mariscal MD Work Phone: [employer] Work Phone: 10-23-2020 18:51-0400 Systolic blood pressure 136 mm[Hg] Pily Mariscal MD Work Phone: [place] Work Phone: 06-28-2020 14:00-0500 BP Diastolic 48 mm[Hg] Pily Mariscal [employer] Work Phone: 06-28-2020 14:00-0500 BP Systolic 117 mm[Hg] Pily Mariscal [employer] Phone: 06-28-2020 14:00-0500 Pulse Oximetry 97 % Pily [employer] Phone: 06-28-2020 13:43-0500 Body Temperature 97.11 [degF] Pily Mariscal [employer] Phone: 06-28-2020 13:43-0500 Pulse (Heart Rate) 66 /min Pily Mariscal [employer] Phone: 06-28-2020 13:43-0500 Respiratory Rate 16 /min Pily Mariscal [employer] Phone: 04-04-2020 22:30-0500 Body Temperature 97.2 [degF] [employer] 04-04-2020 22:30-0500 BP Diastolic 105 mm[Hg] [employer] , [place] 04-04-2020 22:30-0500 BP Systolic 146 mm[Hg] [employer] , [place] 04-04-2020 22:30-0500 Pulse (Heart Rate) 74 /min [employer], [place] 04-04-2020 22:05-0500 Pulse Oximetry 97 % [employer] , [place] 04-04-2020 21:31-0500 Respiratory Rate 18 /min [employer], [place] 11-13-2019 10:16-0400 BP Diastolic 74 mm[Hg] Louis [employer], [place] 11-13-2019 10:16-0400 BP Systolic 135 mm[Hg] Louis [employer], [place] 11-13-2019 10:16-0400 Pulse Oximetry 97 % [facility], [place] 11-13-2019 07:15-0400 BMI (Body Mass Index) 53.04 kg/m2 [facility], [place] 11-13-2019 07:15-0400 Body Temperature 98.4 [degF] Louis Rodgers [facility] [place], [place] 11-13-2019 07:15-0400 Body weight 140.16 kg Louis Doyle [facility], [place] 11-13-2019 07:15-0400 Height 162.6 cm Louis Rodgers [facility], [place] 11-13-2019 07:15-0400 Pulse (Heart Rate) 96 /min Louis [facility] [place], [place] 11-13-2019 07:15-0400 Respiratory Rate 22 /min Louis Rodgers [facility] [place], [place] 11-03-2019 00:24-0400 Body Temperature 97.9 [degF] [facility] [place] [facility] [place] 11-03-2019 00:24-0400 BP Diastolic 98 mm[Hg] [facility] , [place] 11-03-2019 00:24-0400 BP Systolic 130 mm[Hg] [facility] , [place] 11-03-2019 00:24-0400 Pulse (Heart Rate) 74 /min [facility], [place] 11-03-2019 00:24-0400 Pulse Oximetry 97 % [facility] , [place] 11-03-2019 00:24-0400 Respiratory Rate 18 /min [facility] [place] 08-09-2019 10:30-0400 BP Diastolic 72 mm[Hg] [facility] Schedule [facility] [place] 08-09-2019 10:30-0400 BP Systolic 123 mm[Hg] [facility] Schedule [facility] , [place] 08-09-2019 10:30-0400 Pulse (Heart Rate) 72 /min [facility] Schedule [facility], [place] 08-09-2019 09:38-0400 Body Temperature 97 [degF] [facility] Schedule [facility] [employer] [place] 08-09-2019 09:38-0400 Respiratory Rate 18 /min [facility] Schedule [facility] [place] 08-01-2019 11:00-0400 BP Diastolic 77 mm[Hg] [facility] Schedule [facility] [place] , [place] 08-01-2019 11:00-0400 BP Systolic 136 mm[Hg] [facility] [place] 08-01-2019 11:00-0400 Pulse (Heart Rate) 73 /min [facility] [place] 08-01-2019 09:48-0400 Body Temperature 97.9 [degF] [facility] [place] [place] 08-01-2019 09:48-0400 Respiratory Rate 18 /min [facility] Schedule [employer], [place] 06-23-2019 23:17-0500 BP Diastolic 60 mm[Hg] Nickolas [employer] Work Phone: 06-23-2019 23:17-0500 BP Systolic 111 mm[Hg] Nickolas [employer] Work Phone: 06-23-2019 23:17-0500 Pulse (Heart Rate) 75 /min [employer] Work Phone: 06-23-2019 23:17-0500 Respiratory Rate 17 /min Nickolas [employer] Work Phone: 06-23-2019 22:47-0500 Pulse Oximetry 98 % [employer] Phone: 06-23-2019 20:34-0500 Body Temperature 97.7 [degF] Nickolas [employer] Work Phone: 04-07-2019 14:14-0500 BP Diastolic 90 mm[Hg] Wayne Rundown [facility] [place] 04-07-2019 14:14-0500 BP Systolic 110 mm[Hg] [facility] [place] 04-07-2019 14:14-0500 Pulse (Heart Rate) 75 /min [facility] [place] 04-07-2019 14:14-0500 Pulse Oximetry 99 % [facility] [place] 04-07-2019 14:14-0500 Respiratory Rate 16 /min Wayne Rundown [facility] [employer] [facility], [place] 04-07-2019 14:11-0500 Body Temperature 97 [degF] [facility] [employer] [facility], [place] 02-02-2019 06:05-0400 BMI (Body Mass Index) 50.46 kg/m2 Chepe Rodgers [facility] [place] 02-02-2019 06:05-0400 Body Temperature 98.01 [degF] Chepe Rodgers [email or web address] [facility], [place] 02-02-2019 06:05-0400 Body weight 133.36 kg Chepe Rodgers [facility] [place] [place] 02-02-2019 06:05-0400 BP Diastolic 84 mm[Hg] Chepe Rodgers [facility] , [place] 02-02-2019 06:05-0400 BP Systolic 118 mm[Hg] Chepe Rodgers [facility] , [place] 02-02-2019 06:05-0400 Pulse (Heart Rate) 91 /min Chepe Rodgers [facility] [place] [place] 02-02-2019 06:05-0400 Pulse Oximetry 99 % Chepe Rodgers [facility] [place] [place] 02-02-2019 06:05-0400 Respiratory Rate 18 /min Chepe Rodgers [employer] [facility] [place] 12-24-2018 20:23-0400 Body Temperature 97 [degF] Brianna Verde [employer] [facility], [place] 12-24-2018 20:23-0400 BP Diastolic 94 mm[Hg] Brianna Verde [place] 12-24-2018 20:23-0400 BP Systolic 133 mm[Hg] Brianna Verde [place] 12-24-2018 20:23-0400 Pulse (Heart Rate) 94 /min Brianna Verde [place] 12-24-2018 20:23-0400 Pulse Oximetry 96 % Brianna Verde [place] 12-24-2018 20:23-0400 Respiratory Rate 14 /min Brianna Verde [place] Encounters Encounter Date Encounter Type Care Provider Facility Start: 03-21-2024 End: 03-21-2024 Office outpatient visit 25 minutes Janell Baldwin PA-C Work Phone: [facility] Comment on above: Morbid obesity with body mass index of 50 or higher (Primary Dx); Type 2 diabetes mellitus without complication, unspecified whether snf insulin use Start: 03-21-2024 End: 03-21-2024 Patient encounter procedure Jean Paul Farrah RD Work Phone: [facility] Nutrition and Diabetic Education Comment on above: Nutritional counseli ng (Primary Dx); Morbid obesity with BMI of 50.0-59.9, adult Start: 03-21-2024 ambulatory [facility] Start: 03-21-2024 ambulatory [facility] Start: 02-22-2024 End: 02-22-2024 Office outpatient new 30 minutes Janell Ferrara Denny CHOUDHURY Work Phone: [facility] Comment on above: Morbid obesity with body mass index of 50 or higher (Primary Dx); WALTER (obstructive sleep apnea); Type 2 diabetes mellitus without complication, unspecified whether snf insulin use Start: 02-22-2024 [facility] Start: 01-31-2024 End: 02-01-2024 Emergency department patient visit [facility] ED Comment on above: Abdominal pain, unsp ecified abdominal location (Primary Dx); Urinary tract infection without hematuria, site unspecified Start: 01-23-2024 End: 01-23-2024 Office outpatient new 30 minutes Wayne Joseph DO Work Phone: [facility] Comment on above: Morbid obesity with BMI of 50.0-59.9, adult (Primary Dx); Type 2 diabetes mellitus without complication, unspecified whether meterman insulin use; Essential hypertension Start: 01-23-2024 ambulatory [facility] Start: 11-21-2023 End: 11-23-2023 ambulatory JEN HELMS [facility] Start: 09-28-2023 End: 09-28-2023 ambulatory BRADLY MCCAIN [facility] Start: 09-07-2023 End: 09-07-2023 [facility] Start: 08-22-2023 End: 08-22-2023 ambulatory [facility] Start: 07-28-2023 End: 07-28-2023 ambulatory FLORA RHODESTELLO [facility] Start: 07-24-2023 End: 07-24-2023 ambulatory BRIANNA Chavez [facility] Start: 07-24-2023 End: 07-24-2023 Subsequent hospital visit by physician Brianna Restrepo CNP Work Phone: [facility] Laboratory Comment on above: Acute UTI Start: 06-15-2023 ambulatory Nithin Simpson acility:[facility] Start: 04-23-2023 End: 04-23-2023 Emergency department patient visit JOVAN ALBARRAN [facility] Start: 04-14-2023 End: 04-14-2023 Emergency department patient visit KALE CARTER [facility] Start: 03-10-2023 End: 03-10-2023 Emergency department patient visit JESSICA CHAVES [facility] Start: 02-19-2023 End: 02-19-2023 Emergency department patient visit BRIANNA Chavez [facility] Start: 06-27-2022 End: 06-27-2022 Emergency department patient visit Surinder Mireles MD Work Phone: [facility] ED Comment on above: Acute nonintractable headache, unspecified headache type (Primary Dx) Start: 12-29-2021 End: 12-29-2021 Subsequent hospital visit by physician Brianna Verde APRN - [place] Work Phone: [facility] Laboratory Comment on above: B12 deficiency Start: 11-08-2021 End: 11-08-2021 Subsequent hospital visit by physician Sujit Aguirre PT [facility] Physical Therapy Comment on above: Arrived Start: 09-20-2021 End: 09-20-2021 Subsequent hospital visit by physician Anusha Torres PTA [facility] Physical Therapy Start: 09-03-2021 End: 09-03-2021 Subsequent hospital visit by physician Anusha Torres PTA [facility] Physical Therapy Comment on above: Arrived Start: 08-06-2021 End: 08-06-2021 Subsequent hospital visit by physician Anusha Torres PTA [facility] Physical Therapy Comment on above: Canceled (Case cance lled) Start: 07-16-2021 End: 07-16-2021 Subsequent hospital visit by physician Donna Damon PT [facility] Physical Therapy Comment on above: Arrived Start: 06-11-2021 End: 06-13-2021 Subsequent hospital visit by physician Brianna Verde [employer] Work Phone: [facility] Start: 02-12-2021 End: 02-12-2021 Emergency department patient visit Ebony Bonds Work Phone: [facility] ED Comment on above: Diarrhea, unspecifie d type (Primary Dx); Nonintractable headache, unspecified chronicity pattern, unspecified headache type; Syncope and collapse Start: 01-14-2021 End: 01-14-[address] CRAIG BUSTILLO Facility: Start: 12-14-2020 Split Srvc Kaye G Osbo rne Other [facility] Office Start: 12-07-2020 Split Srvc Kaye G Osbo rne Other [facility] Office Start: 11-25-2020 End: 11-25-2020 Subsequent hospital visit by physician Brianna Verde [employer] Work Phone: [facility] Laboratory Comment on above: Polyneuropathy; Hypocalcemia Start: 11-06-2020 End: 11-06-2020 Subsequent hospital visit by physician Pj Siddiqui PT [facility] Physical Therapy Start: 10-30-2020 End: 10-30-2020 Subsequent hospital visit by physician jP Siddiqui PT [facility] Physical Therapy Start: 10-23-2020 End: 10-23-2020 Emergency department patient visit Pily Mariscal MD Work Phone: [facility] ED Comment on above: Pain, dental (Primar y Dx); Insect bite of right upper arm, initial encounter Start: 09-22-2020 End: 09-22-2020 Subsequent hospital visit by physician Anusha Torres PTA [facility] Physical Therapy Comment on above: Arrived Start: 09-18-2020 End: 09-18-2020 Subsequent hospital visit by physician Anusha Torres PTA [facility] Physical Therapy Comment on above: Arrived Start: 09-14-2020 End: 09-14-2020 Subsequent hospital visit by physician Pj Siddiqui PT [facility] Physical Therapy Comment on above: Arrived Start: 09-04-2020 End: 09-04-2020 Subsequent hospital visit by physician [facility] Comment on above: Arrived Start: 06-28-2020 End: 06-28-2020 Emergency department patient visit Pily Mariscal Work Phone: [facility] ED Comment on above: Multiple contusions (Primary Dx); Fall, initial encounter Start: 05-22-2020 End: 05-22-2020 Subsequent hospital visit by physician Brianna SLOAN Laboratory Comment on above: Iron deficiency anem ia, unspecified iron deficiency anemia type; Intestinal malabsorption, unspecified type; H/O gastric bypass; B12 deficiency Start: 04-04-2020 End: 04-04-2020 Emergency department patient visit Suraj Barajas Work Phone: [facility] ED Comment on above: Viral illness (Prima ry Dx) Start: 11-13-2019 End: 11-13-2019 Emergency department patient visit Louis Doyle [facility] ED Comment on above: Non-surgical abdomin al pain (Primary Dx) Start: 11-03-2019 End: 11-03-2019 Emergency department patient visit Emil Mays Work Phone: [facility] ED Comment on above: Back strain, initial encounter (Primary Dx); Skin yeast infection; Concern about STD in female without diagnosis Start: 08-09-2019 End: 08-09-2019 Subsequent hospital visit by physician Nathalia [facility] Room 8 [facility] Comment on above: Intestinal malabsorp tion, unspecified type (Primary Dx); Iron deficiency anemia, unspecified iron deficiency anemia type Start: 08-01-2019 End: 08-01-2019 Subsequent hospital visit by physician Nathalia [facility] Comment on above: Intestinal malabsorp tion, unspecified type (Primary Dx); Iron deficiency anemia, unspecified iron deficiency anemia type Start: 07-18-2019 End: 07-19-2019 Patient encounter procedure BRENDA RIOS [facility] Start: 07-18-2019 End: 07-18-2019 Subsequent hospital visit by physician Brianna JONES [place] [facility] DO[facility] Start: 06-23-2019 End: 06-23-2019 Emergency department patient visit Nickolas Domingo Work Phone: [facility] ED Comment on above: Nonspecific chest pa in (Primary Dx) Start: 04-07-2019 End: 04-07-2019 Emergency department patient visit Wayne Ozuna Work Phone: [facility] ED Comment on above: Acute parotitis (Amparo erlin Dx); Acute upper respiratory infection Start: 02-20-2019 End: 02-20-2019 Subsequent hospital visit by physician Brianna Verde [facility] Laboratory Comment on above: Iron deficiency anem ia, unspecified iron deficiency anemia type; Intestinal malabsorption, unspecified type; H/O gastric bypass; B12 deficiency Start: 02-19-2019 End: 02-19-2019 Subsequent hospital visit by physician Nathalia Sleep Rm 1 [facility] Sleep Center Comment on above: WALTER (obstructive sle ep apnea) Start: 02-02-2019 End: 02-02-2019 Emergency department patient visit Chepe Stafford Work Phone: [facility] ED Comment on above: Acute pharyngitis, u nspecified etiology (Primary Dx); Acute tonsillitis, unspecified etiology Start: 12-24-2018 End: 12-24-2018 Emergency department patient visit Brianna Mehreen [facility] ED Comment on above: Acute pharyngitis, u nspecified etiology (Primary Dx) Procedures Date Procedure Procedure Detail Performing Clinician Start: 03-21-2024 Lipid 1996 panel - S carla or Plasma Jean Paul Almanzar RD Work Phone: Start: 01-31-2024 Ct abdomen & pelvis w/contrast [...] Radex humerus minimu m 2 views Ebony R Vamshi DO Work Phone: Start: 02-12-2021 Ecg routine ecg w/le ast 12 lds w/i&r Ebony Bonds DO Work Phone: Start: 12-14-2020 Nerve conduction shabnam dies 9-10 studies Kaye Kruse Start: 12-07-2020 Nerve conduction shabnam dies 7-8 studies Kaye Kruse Start: 11-25-2020 End: 11-25-2020 Basic metabolic panel calcium total Maynor Rivera [employer] Work Phone: Start: 11-25-2020 VITAMIN B12 & FOLATE Sh awjoseph Meng Deamert [employer] Work Phone: Start: 06-28-2020 Radiologic examinati on pelvis 1/2 views Pily Mariscal Work Phone: Start: 06-28-2020 End: 06-28-2020 Radiologic examination knee 1/2 views Pily Mariscal Work Phone: Start: 06-28-2020 Radex hand minimum 3 views Pily Mariscal Work Phone: Start: 06-28-2020 Radex ribs uni w/pos teroant ch minimum 3 views Pily Mariscal Work Phone: Start: 05-22-2020 Assay of ferritin Dulce Rios Work Phone: Start: 05-22-2020 Blood count complete [...] Radex spine lumbosac ral 2/3 views Emil Galeana Davon Work Phone: Start: 11-03-2019 Urine test visual color [email or web address] meths [email or web address] Work Phone: Start: 11-03-2019 Urnls dip stick/tabl et reagent auto microscopy [email or web address] Work Phone: Start: 07-18-2019 25 hydroxy includes fractions if performed BRENDA GOMEZLILITABBY Start: 07-18-2019 Assay of ferritin DULCE RIOS Start: 07-18-2019 Cyanocobalamin vitamin b-12 BRENDA GOMEZNSTABBY Start: 07-18-2019 25 hydroxy includes fractions if performed Brenda Rios Work Phone: Start: 07-18-2019 Assay of ferritin Dulce Rios Work Phone: Start: 07-18-2019 VITAMIN B12 & [...] 12-24-2018 Iaadiadoo streptococ cus group a Abby Cordova Work Phone: Plan of Treatment Date Care Activity Detail Author Start: 03-21-2029 Lipid panel LIPID SCREENING [employer] Start: 07-27-2028 Lipid panel Lipids [facility] [email or web address] Start: 08-15-2027 Shingles Vaccine (1 of 2) Shingles Vaccine (1 of 2) [employer] Work Phone: Start: 11-20-2025 Screening for malign ant neoplasm of breast Breast cancer screen [facility] [employer] Start: 01-30-2025 GFR test (Diabetes, CKD 3-4, OR last GFR 15-59) GFR test (Diabetes, CKD 3-4, OR last GFR 15-59) [facility] [employer] Start: 11-20-2024 Screening for malign ant neoplasm of breast MAMMOGRAM SCREENING DISCUSSION [facility] Start: 08-07-2024 [facility] [employer] Start: 07-23-2024 COVID-19 Vaccine (#1) COVID-19 Vacci ne (#1) [facility] [employer] Comment on above: Postponed from 02/13 (Patient Refused) Start: 07-23-2024 DTaP/Tdap/Td vaccine (2 - Td or Tdap) DTaP/Tdap/Td vaccine (2 - Td or Tdap) [facility] [employer] Comment on above: Postponed from 11/17 (Patient Refused) Start: 07-23-2024 Hepatitis B vaccine (1 of 3 - 19+ 3-dose series) Hepatitis B vaccine (1 of 3 - 19+ 3-dose series) [facility] [employer] Comment on above: Postponed from 08/14 (Patient Refused) Start: 07-23-2024 Hepatitis B vaccine (1 of 3 - 3-dose series) Hepatitis B vaccine (1 of 3 - 3-dose series) [facility] [employer] Comment on above: Postponed from 08/14 (Patient Refused) Start: 07-23-2024 Influenza vaccination Flu vaccine (# 1) [facility] [employer] Comment on above: Postponed from 12/13 (Patient Refused) Start: 04-18-2024 End: 04-18-2024 Patient encounter procedure 04/18/2024 10:00 AM EST Office Visit [facility] [address] [place] [address] Janell Baldwin, PALauroC [address] [place] [phone] [facility] Start: 04-12-2024 End: 04-12-2024 Telemedicine consultation with patient 04/12/2024 11:00 AM EST Telemedicine [facility] Nutrition [facility] Diabetic Education [address] [place] [address] Jean Paul Almanzar, RD [address] [place] [address] [facility] Start: 03-21-2024 End: 03-21-2024 Patient encounter procedure [facility] Start: 02-22-2024 End: 02-21-2025 Comprehensive metabolic 2000 panel - Serum or Plasma COMPREHENSIVE METABOLIC PANEL Lab Routine Morbid obesity with body mass index of 50 or higher WALTER (obstructive sleep apnea) Type 2 diabetes mellitus without complication, unspecified whether meterman insulin use Expected: 02/22/2024, Expires: 02/21/2025 [facility] Comment on above: Expected: 02/22/2024 , Expires: 02/21/2025 Start: 02-22-2024 End: 02-21-2025 Hemoglobin A1c/Hemoglobin.total in Blood HEMOGLOBIN A1C Lab Routine Morbid obesity with body mass index of 50 or higher WALTER (obstructive sleep apnea) Type 2 diabetes mellitus without complication, unspecified whether snf insulin use Expected: 02/22/2024, Expires: 02/21/2025 [facility] Comment on above: Expected: 02/22/2024 , Expires: 02/21/2025 Start: 02-22-2024 End: 02-22-2024 Patient encounter procedure 02/22/2024 10:30 AM EDT Office Visit [facility] [address] [place] [address] Janell Baldwin, PA-C [address] [place] [phone] [facility] Start: 01-25-2024 End: 01-25-2024 Patient encounter procedure 01/25/2024 2:20 PM EDT Office Visit [facility] [address] [place] [phone] Might, Brianna W, DEEP FAT COOK FRY - CORN MILLER [address] [place] [address] 6 month f/u [facility] Comment on above: 6 month f/u Start: 01-14-2024 COVID-19 VACCINE ( season) COVID-19 VACCINE ( season) [facility] Start: 01-14-2024 COVID-19 VACCINE ( season) COVID-19 VACCINE ( season) [facility] Start: 01-14-2024 Influenza vaccination INFLUENZA VACC INE (#1) [facility] Start: 12-14-2023 Influenza vaccination Flu vaccine (# 1) [facility] Start: 10-30-2023 Lipid panel [facility] Start: 10-30-2023 Lipid screen Lipid screen [facility] th- [place], [place] Start: 09-11-2023 End: 09-11-2023 Patient encounter procedure 09/11/2023 11:40 AM EDT Office Visit [facility] NEUROLOGY Part of [address] [place] [address] Stephanie Arredondo MD [address] [place] [address] [address] [place] [address] Just want to check in and get my meds [facility] NEUROLOGY Part of [facility] Comment on above: Just want to check i n and get my meds Start: 08-16-2023 End: 08-16-2023 Patient encounter procedure 08/16/2023 1:15 PM EDT Office Visit [facility] ONCOLOGY SPECIALISTS Part of [address] [address] Brenda Rios MD [address] [place] [place] [address] b12 deficiency [facility] ONCOL[facility] SPECIALISTS Part of [facility] Comment on above: b12 deficiency Start: 08-08-2023 End: 08-08-2023 Nursing evaluation of patient and report 08/08/2023 2:30 PM EDT Nurse Only [facility] [address] [place] [address] 2 week bp check [facility] Comment on above: 2 week bp check Start: 07-22-2023 Depression Monitoring Depression Mon [facility] Start: 01-03-2023 COVID-19 Vaccine (#1) COVID-19 Vacci ne (#1) [facility] Comment on above: Postponed from 02/13 (Not Indicated) Start: 01-03-2023 Depression Monitoring Depression Mon [facility] Start: 01-03-2023 Screening for malign ant neoplasm of cervix Cervical cancer screen [facility] Comment on above: Postponed from 08/14 (Not Indicated) Start: 11-17-2022 DTaP/Tdap/Td vaccine (2 - Td or Tdap) DTaP/Tdap/Td vaccine (2 - Td or Tdap) [facility] Start: 11-17-2022 DTaP/Tdap/Td vaccine (2 - Td) DTaP/Tdap/Td vaccine (2 - Td) [place] Start: 11-17-2022 Tetanus vaccination [facility] Start: 2022 Screening for malign ant neoplasm of colon [facility] Start: 07-13-2022 End: 07-13-2022 Patient encounter procedure 07/13/2022 Office Visit Oncology Flora Moroe MD [address] [place] [address] [facility] ON[facility] SPECIALISTS Part of [facility] Start: 07-06-2022 End: 07-06-2022 Patient encounter procedure 07/06/2022 Office Visit Primary Care Brianna Verde, DEEP FAT COOK FRY - CORN MILLER [address] [place] [address] [facility] Start: 05-21-2022 Depression Monitoring Depression Mon [facility] Start: 04-28-2022 End: 04-28-2022 Patient encounter procedure 04/28/2022 Office Visit Neurology Stephanie Arredondo MD [address] [facility] [place] [address] [facility] NEUROLOGY Part [facility] Start: 01-13-2022 Influenza vaccination [facility] Start: 01-07-2022 End: 01-07-2022 Patient encounter procedure 01/07/2022 Appointment Physical Therapy Anusha Torres PTA [facility] Physical Therapy Start: 01-05-2022 End: 01-05-2022 Patient encounter procedure [facility] ONCOL[facility]Y SPECIALISTS Part [facility] Start: 01-03-2022 End: 01-03-2022 Patient encounter procedure 01/03/2022 Office Visit Primary Care Brianna Verde APRN - CORN MILLER [address] [place], [place] [id number] [facility] Start: 12-13-2021 Influenza vaccination Flu vaccine (# 1) [facility] Start: 11-25-2021 COVID-19 Vaccine (1) COVID-19 Vaccin e (1) [facility] Comment on above: Postponed from 08/14 (Patient Refused) Postponed from 08/14 (Patient Refused) Start: 11-25-2021 Screening for malign ant neoplasm of cervix Cervical cancer screen [facility] Work Phone: Comment on above: Postponed from 08/14 (Not Indicated) Start: 11-19-2021 End: 11-19-2021 Patient encounter procedure 11/19/2021 Office Visit Primary Care Brianna Verde DEEP FAT COOK FRY - CORN MILLER [address] [place] [address] [facility] Start: 10-28-2021 End: 10-28-2021 Patient encounter procedure 10/28/2021 [place] [address] [place] [address] [facility] ONCOLOGY SPECIALISTS Part [facility] Start: 10-21-2021 End: 10-21-2021 Patient encounter procedure 10/21/2021 Office Visit Neurology Stephanie Arredondo MD [address] [place] [address] [facility] NEUROLOGY Part [facility] Start: 09-22-2021 End: 09-22-2021 Patient encounter procedure 09/22/2021 Office Visit Oncology Flora Moore MD [address] [place] [address] [facility] ONCOL[facility]Y SPECIALISTS Part [facility] Start: 09-17-2021 End: 09-17-2021 Patient encounter procedure 09/17/2021 Appointment Physical Therapy Prabhu Leiva, HOTEL RECEPTIONIST [facility] Start: 09-09-2021 End: 09-09-2021 Patient encounter procedure 09/09/2021 Office Visit Neurology Stephanie Arredondo MD [address] [place] [address] [facility] NEUROLOG[facility] Start: 09-03-2021 End: 09-03-2021 Patient encounter procedure 09/03/2021 Appointment Physical Therapy Prabhu Leiva, HOTEL RECEPTIONIST [facility] Start: 08-20-2021 End: 08-20-2021 Patient encounter procedure 08/20/2021 Appointment Physical Therapy Prabhu Leiva, HOTEL RECEPTIONIST [facility] Start: 08-11-2021 End: 08-11-2021 Patient encounter procedure [facility] ONCOL[facility]Y SPECIALISTS Part [facility] Start: 07-12-2021 End: 07-12-2021 Patient encounter procedure [facility] NEUROLOG[facility] Start: 02-24-2021 End: 02-24-2021 Patient encounter procedure 02/24/2021 Office Visit Primary Care Might, Brianna W, DEEP FAT COOK FRY - CORN MILLER [address] [place] [address] [phone] [facility] Start: 01-27-2021 End: 01-27-2021 Patient encounter procedure 01/27/2021 Office Visit Oncology Flora Moore MD [address] [place] [address] [facility] ON[facility] SPECIALISTS Part of [facility] Start: 01-13-2021 Influenza vaccination [facility] Start: 12-09-2020 End: 12-09-2020 Office Visit 12/09/2020 Office Visit Primary Care Brianna Verde W, DEEP FAT COOK FRY - CORN MILLER [address] [place] [facility] [address] [phone] [facility] Start: 11-06-2020 End: 11-06-2020 Patient encounter procedure [facility] Physical Therapy Start: 10-30-2020 End: 10-30-2020 Patient encounter procedure 10/30/2020 Appointment Physical Therapy Pj Siddiqui, PT [facility] Physical Therapy Start: 10-29-2020 End: 10-29-2020 Patient encounter procedure 10/29/2020 Office Visit Neurology Stephanie Arredondo MD [address] [place] [id number] [facility] NEUROLOG[facility] Part of [facility] Start: 10-07-2020 End: 10-07-2020 Patient encounter procedure 10/07/2020 Appointment Physical Therapy Shailesh [facility] Start: 10-05-2020 End: 10-05-2020 Patient encounter procedure 10/05/2020 Appointment Physical Therapy [facility]j [facility]iddiqu[facility] Start: 10-03-2020 Diabetes screen Diabetes screen [facility] Start: 09-30-2020 End: 09-30-2020 Patient encounter procedure [facility] Physical Therapy Start: 09-28-2020 End: 09-28-2020 Patient encounter procedure 09/28/2020 Appointment Physical Therapy Pj Siddiqui PT [facility] Start: 09-23-2020 End: 09-23-2020 Patient encounter procedure 09/23/2020 Appointment Physical Therapy [facility] Start: 09-21-2020 End: 09-21-2020 Patient encounter procedure 09/21/2020 Appointment Physical Therapy Pj [facility]iddiqui PT [facility] Start: 09-16-2020 End: 09-16-2020 Patient encounter procedure 09/16/2020 Appointment Physical Therapy Shailesh [facility] Start: 09-14-2020 End: 09-14-2020 Patient encounter procedure 09/14/2020 Appointment Physical Therapy Pj [facility]iddiqui PT [facility] Start: 09-10-2020 End: 09-10-2020 Patient encounter procedure 09/10/2020 Appointment Physical Therapy Pj [facility]iddiqui PT [facility] Start: 09-08-2020 End: 09-08-2020 Patient encounter procedure 09/08/2020 Appointment Physical Therapy Shailesh [facility] Start: 07-22-2020 End: 07-22-2020 Office Visit 07/22/2020 Office Visit Oncology Brenda Rios MD [address] [place] [address] [facility] ON[facility] SPECIALISTS Part of [facility] Start: 06-18-2020 Cervical cancer screen Cervical canc er screen [facility] Work Phone: Comment on above: Postponed from 08/14 (Patient Refused) Start: 06-18-2020 Influenza vaccination [facility] [employer] Phone: Comment on above: Postponed from 01/13 (Patient Refused) Postponed from 01/13 (Patient Refused) Start: 06-18-2020 Screening for malign ant neoplasm of cervix Cervical cancer screen [facility] [place] Comment on above: Postponed from 08/14 (Patient Refused) Start: 04-06-2020 End: 04-06-2020 Office Visit 04/06/2020 Office Visit Primary Care Brianna Verde, DEEP FAT COOK FRY - CORN MILLER [address] [place] [address] [phone] [facility] Start: 01-22-2020 End: 01-22-2020 Office Visit 01/22/2020 Office Visit Oncology Brenda Rios MD [address] [place] [address] [facility] Start: 01-14-2020 Influenza vaccination Flu vaccine (# 1) [place] Start: 12-18-2019 End: 12-18-2019 Office Visit [facility] Start: 08-09-2019 End: 08-09-2019 Appointment 08/09/2019 Appointment Infusion Therapy [facility] Start: 07-18-2019 End: 07-18-2019 Office Visit 07/18/2019 Office Visit Oncology Brenda Rios MD [address] [place] [address] [facility] Start: 04-25-2019 End: 04-25-2019 Office Visit 04/25/2019 Office Visit Primary Care Brianna Verde, DEEP FAT COOK FRY - CORN MILLER [address] [place] [address] [phone] [facility] Start: 02-19-2019 End: 02-19-2019 Appointment 02/19/2019 Appointment Sleep Center [facility] Start: 02-11-2019 End: 02-11-2019 Office Visit 02/11/2019 Office Visit Oncology Cramela Mariscal MD [address] [place] [phone] [facility] Start: 01-31-2019 End: 01-31-2019 Office Visit 01/31/2019 Office Visit Oncology Carmela Mariscal MD [address] [place] [phone] [facility] Start: 01-13-2019 Influenza vaccination Flu vaccine (# 1) [place] Start: 2017 [facility]id [facility] Start: 2017 Screening for malign ant neoplasm of breast MAMMOGRAM SCREENING DISCUSSION [facility] Start: 08-15-2007 Screening for malign ant neoplasm of cervix [facility] Start: 1998 Cervical cancer screen Cervical canc er screen [place], [place] Start: 1998 Screening for malign ant [facility]oplasm [facility]ix [facility] Start: 1996 Hepatitis B vaccination HEP B VACCINE (1 of 3 - 19+ 3-dose series) [facility] Start: 1993 COVID-19 Vaccine (1) COVID-19 Vaccin e (1) [employer] Phone: Start: 1992 HIV screening HIV SCREENING DISCUSSI ON [facility] Start: 1989 COVID-19 Vaccine (1) COVID-19 Vaccin e (1) [employer] Phone: Start: 02-13-1978 COVID-19 Vaccine (#1) COVID-19 Vacci ne (#1) [facility] Start: 1977 Hepatitis C screening HEPATITI S C VIRUS SCREENING [facility] End: 11-25-2020 RAÚL Screen With Reflex RAÚL Screen With Reflex Lab Routine Polyneuropathy 1 Occurrences starting 11/25/2020 until 11/25/2020 [employer] Phone: Comment on above: 1 Occurrences starti ng 11/25/2020 until 11/25/2020 RAÚL Screen With Reflex RAÚL Scree n With Reflex Lab Routine Polyneuropathy 11/25/2020 9:20 AM EDT [employer] Phone: End: 02-12-2021 Basic metabolic 2000 panel - Serum or Plasma Basic Metabolic Panel Lab STAT One Time for 1 Occurrences starting 02/12/2021 until 02/12/2021 [employer] Phone: Comment on above: One Time for 1 Occur rences starting 02/12/2021 until 02/12/2021 End: 02-12-2021 CBC panel - Blood by Automated count CBC Lab STAT One Time for 1 Occurrences starting 02/12/2021 until 02/12/2021 [employer] Phone: Comment on above: One Time for 1 Occur rences starting 02/12/2021 until 02/12/2021 End: 11-03-2019 Chlamydia trachomatis DNA, Urine Chlamydia trachomatis DNA, Urine Microbiology Routine One Time for 1 Occurrences starting 11/03/2019 until 11/03/2019 [place] Comment on above: One Time for 1 Occur rences starting 11/03/2019 until 11/03/2019 Chlamydia trachomati s DNA, Urine Chlamydia trachomatis DNA, Urine Microbiology STAT 11/03/2019 1:03 AM EDT [place] End: 05-22-2020 Cobalamin (Vitamin B12) [Mass/Vol] Vitamin B12 Lab Routine Iron deficiency anemia, unspecified iron deficiency anemia type Intestinal malabsorption, unspecified type H/O gastric bypass B12 deficiency 1 Occurrences starting 05/22/2020 until 05/22/2020 [place] Comment on above: 1 Occurrences starti ng 05/22/2020 until 05/22/2020 Cobalamin (Vitamin B 12) [Mass/Vol] Vitamin B12 Lab Routine Iron deficiency anemia, unspecified iron deficiency anemia type Intestinal malabsorption, unspecified type H/O gastric bypass B12 deficiency 05/22/2020 4:49 PM EST [place] End: 04-04-2020 COVID-19, PCR COVID-19, PCR Lab Routine One Time for 1 Occurrences starting 04/04/2020 until 04/04/2020 [place] Comment on above: One Time for 1 Occur rences starting 04/04/2020 until 04/04/2020 COVID-19, PCR COVID-19, PCR La b STAT 04/04/2020 9:25 PM EST [place], [place] CT HEAD W WO CONTRAST CT HEAD W WO CONTRAST Imaging STAT 06/27/2022 1:15 PM EST [employer] [facility] [email or web address] Work Phone: End: 02-12-2021 CT Head WO Contrast CT Head WO Contrast Imaging STAT Once for 1 Occurrences starting 02/12/2021 until 02/12/2021 [employer] Work Phone: Comment on above: Once for 1 Occurrenc es starting 02/12/2021 until 02/12/2021 End: 07-24-2023 Culture, Urine BON [facility] [email or web address] Comment on above: 1 Occurrences starti ng 07/24/2023 until 07/24/2023 EKG 12 Lead [employer] Work Phone: EKG 12 Lead EKG 12 Lead ECG STAT 06/27/2022 12:52 PM EST [employer] Phone: EKG 12 Lead (Select if Upper Abd Pain, or SOB, Diaphoresis or Tachy) EKG 12 Lead (Select if Upper Abd Pain, or SOB, Diaphoresis or Tachy) ECG STAT 01/31/2024 9:50 PM EDT [employer] Phone: End: 05-22-2020 Folate Folate Lab Routine Iron deficiency anemia, unspecified iron deficiency anemia type Intestinal malabsorption, unspecified type H/O gastric bypass B12 deficiency 1 Occurrences starting 05/22/2020 until 05/22/2020 [employer] Comment on above: 1 Occurrences starti ng 05/22/2020 until 05/22/2020 Folate Folate Lab Routi ne Iron deficiency anemia, unspecified iron deficiency anemia type Intestinal malabsorption, unspecified type H/O gastric bypass B12 deficiency 05/22/2020 4:49 PM EST [employer] [place] End: 02-12-2021 HCG Qualitative, Serum HCG Qualitative, Serum Lab STAT One Time for 1 Occurrences starting 02/12/2021 until 02/12/2021 [employer] Phone: Comment on above: One Time for 1 Occur rences starting 02/12/2021 until 02/12/2021 End: 02-20-2019 Methylmalonic Acid, Serum Methylmalonic Acid, Serum Lab Routine Iron deficiency anemia, unspecified iron deficiency anemia type Intestinal malabsorption, unspecified type H/O gastric bypass B12 deficiency 1 Occurrences starting 02/20/2019 until 02/20/2019 [facility] [place] Comment on above: 1 Occurrences starti ng 02/20/2019 until 02/20/2019 Methylmalonic Acid, Serum Methylmalonic Acid, Serum Lab Routine Iron deficiency anemia, unspecified iron deficiency anemia type Intestinal malabsorption, unspecified type H/O gastric bypass B12 deficiency 02/20/2019 7:57 AM EDT [facility] [place] End: 02-19-2019 Sleep Study with PAP Titration Sleep Study with PAP Titration Sleep Center Routine WALTER (obstructive sleep apnea) 1 Occurrences starting 02/19/2019 until 02/19/2019 [place] Comment on above: 1 Occurrences starti ng 02/19/2019 until 02/19/2019 End: 02-20-2019 Soluble transferrin receptor Soluble transferrin receptor Lab Routine Iron deficiency anemia, unspecified iron deficiency anemia type 1 Occurrences starting 02/20/2019 until 02/20/2019 [place] Comment on above: 1 Occurrences starti ng 02/20/2019 until 02/20/2019 Soluble transferrin receptor Soluble transferrin receptor Lab Routine Iron deficiency anemia, unspecified iron deficiency anemia type 02/20/2019 7:57 AM EDT [place] End: 02-12-2021 Troponin I.cardiac [Mass/volume] in Serum or Plasma Troponin Lab STAT One Time for 1 Occurrences starting 02/12/2021 until 02/12/2021 [employer] Phone: Comment on above: One Time for 1 Occur rences starting 02/12/2021 until 02/12/2021 End: 11-25-2020 Vitamin D 1,25 Dihydroxy Vitamin D 1,25 Dihydroxy Lab Routine Hypocalcemia 1 Occurrences starting 11/25/2020 until 11/25/2020 [employer] Phone: Comment on above: 1 Occurrences starti ng 11/25/2020 until 11/25/2020 Vitamin D 1,25 Dihydroxy Vitamin D 1,25 Dihydroxy Lab Routine Hypocalcemia 11/25/2020 9:21 AM EDT [employer] Phone: End: 02-12-2021 XR CHEST PORTABLE XR CHEST PORTABLE Imaging STAT Once for 1 Occurrences starting 02/12/2021 until 02/12/2021 [employer] Phone: Comment on above: Once for 1 Occurrenc es starting 02/12/2021 until 02/12/2021 Immunizations Immunization Date Immunization Notes Care Provider Dedra holloway 03-20-2018 influenza, injectabl e, quadrivalent, preservative free Brianna Might [place], [place] 03-20-2018 Influenza, Quadv, 6 mo and older, IM, PF (Flulaval, Fluarix) [facility] Stafford [facility] 06-20-2016 influenza, injectabl e, quadrivalent, preservative free Brianna Might [facility], [place] 06-20-2016 influenza virus vaccine, unspecified formulation Wayne Jake DO Work Phone: [facility] 11-17-2012 tetanus toxoid, redu jairon diphtheria toxoid, and acellular pertussis vaccine, adsorbed Brianna Mehreen [facility] Payers Date Payer Category Payer Unknown [facility] [id number] 2023-Present [address] [place] [address] [id number] 2022 Self-pay 2016 Unknown [facility] xxxxxxxxxxx 2016-Present [phone] CLAIMS DEPARTMENT [address] [place] [address] xxxxxxxxxxx [id number] 2016 Unknown [id number]. [id number] 1977 Unknown [id number] [id number] 1977 Unknown [id number] [id number] 1977 Unknown [id number] [id number]3 1977 Unknown [id number] 2.16.840.1.902135.3.579.2.173 1977 Unknown [id number] 2.16.840.1.261470.3.579.2.173 1977 Unknown [id number] 2.16.840.1.050099.3.579.2.173 1977 Unknown [id number] 2.16.840.1.744396.3.579.2.173 1977 Unknown [id number] 2.16.840.1.479256.3.579.2.173 1977 Unknown [id number] 2.16.840.1.657713.3.579.2.173 1977 Unknown [id number] 2.16.840.1.994028.3.579.2.173 1977 Unknown [id number] 2.16.840.1.338496.3.579.2.173 1977 Unknown [id number] 2.16.840.1.001147.3.579.2.173 1977 Unknown [id number] 2.16.840.1.148029.3.579.2.173 1977 Unknown [id number] 2.16.840.1.920438.3.579.2.983 1977 Unknown [id number] 2.16.840.1.246423.3.579.2.983 1977 Unknown [id number] 2.16.840.1.217961.3.579.2.983 1977 Unknown [id number] 2.16.840.1.363356.3.579.2.983 1977 Unknown [id number] [id number] 1959 Unknown [id number] Social History Date Type Detail Facility Start: 12-24-2018 End: 02-22-2024 Tobacco smoking status NHIS Never smoker [place] Start: 12-24-2018 End: 03-21-2024 Alcohol intake No [place] Start: 1975 Sex Assigned At Not on file [place] Start: 06-23-2019 End: 01-31-2024 Alcohol intake Current non-drinker of alcohol (finding) [place] Start: 06-18-2019 History SDOH Financial 2 [facility] [employer] Work Phone: Start: 06-18-2019 End: 11-25-2020 History SDOH Transport Med 1 [employer] Work Phone: Exposure to SARS-CoV -2 (event) Unable to assess [employer] [facility] Start: 11-13-2019 End: 02-22-2024 Tobacco use and exposure Never used [employer] [facility] Start: 08-29-2021 End: 06-27-2022 Exposure to SARS-CoV-2 (event) Not sure [employer] [facility] Start: 11-25-2020 History SDOH Financial 5 [employer] Work Phone: Start: *Tobacco [employer] Start: Caffeine [employer] Start: 07-24-2023 End: 03-21-2024 History of Social function [employer] How hard is it for y ou to pay for the very basics like food, housing, medical care, and heating Not hard at all [employer] (I/We) worried [facility] (my/our) food would run out before (I/we) got money to buy more. Never true [employer] At any time in the p ast 12 months, were you homeless or living in intermediate [including now]? No [employer] Start: 07-24-2023 Tobacco Comment Never even tried [employer] [facility] Start: 01-23-2017 Gender identity Identifies as female gender (finding) [facility] How often to you hav e a drink containing alcohol? Never [employer] Clinical Notes 09-04-2020 to 03-21-2024 KEI Calixto 03/21/2024 10:45 AM KEI Chang 03/21/2024 10:45 AM ESTAddendum Note - KEI Calixto 03/21/2024 10:45 AM ESTDischarge InstructionsAttachments Note Date & Type Note Facility 03-21-2024 History of Presen t illness Narrative Regarding Weight Gain: Abby Cabrera is a 48 y.o. y.o. female who presents today with the complaint of obesity. She states that she has had gradual weight gain and would like to have assistance with weight loss. She is up 5 lbs this month. 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 She shares that financially she feels this is her biggest barrier to lack of progress since her surgery with her weight. She struggles to afford exercise resources and quality food options. She reports two injuries this month keeping her from walking. She did work on adjusting her food stamps to increase this, she thinks this will help her get better quality of food and help her eat out less. She does feel good appetite suppression and increase in energy. She does feel motivated to lose weight but states the set backs this month kept her from losing weight. She feels more confident going forward. She has also been working on weight loss by: Diet changes: She does state that she was only eating one time a day some day this month. She was staying with a friend while injured and was eating out fast food with them. She has worked on decreasing her pop intake. Encouraged her to continue to eliminate liquid calorie intake and increase protein intake. Encouraged her to track calorie intake. Exercise: She will work on increasing exercise once she comes out of ankle boot. Behavior change/strategies to overcome barriers: increase exercise and lack of financial stability to remain consistent with food changes. She has used prescription medication for weight loss in the past. Including: phentermine, gastric bypass She denies heart disease She does have: see problem list Past Medical History Includes Her Wt Readings from Last 3 Encounters: 03/21/24 (!) 146.5 kg (323 lb) 03/21/24 (!) 146.7 kg (323 lb 8 oz) 02/22/24 (!) 144.6 kg (318 lb 12.8 oz) and current Body mass index is 55.44 kg/m . Reviewed today. REVIEW OF SYSTEMS: GENERAL: Negative for malaise, significant weight loss and fever HEAD: Negative for headache, swelling. NECK: Negative for lumps, goiter, pain and significant neck swelling RESPIRATORY: Negative for cough, wheezing or shortness of breath. CARDIOVASCULAR: Negative for chest pain, leg swelling or palpitations. GI: Negative for abdominal discomfort, blood in stools or black stools or change in bowel habit SKIN: Negative for lesions, rash, and itching. PSYCH: Negative for sleep disturbance, mood disorder and recent psychosocial stressors. PHYSICAL EXAM: Visit Vitals BP 144/83 (BP Location: Left arm, BP Position: Sitting) Ht 1.626 m (5' 4 ) Wt (!) 146.5 kg (323 lb) LMP 03/21/2024 SpO2 99% BMI 55.44 kg/m General appearance: obese, NAD Neuro: AOx3 [...] speech, no flight of ideas, normal affect PLAN Here today for medically managed weight loss therapy. 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 We have discussed with patient that all health optimization treatment is voluntary. Risks and benefits have been discussed of medically managed weight loss treatments. Patient elects to start/continue managed weight loss therapy and Phentermine. Abby was seen today for follow-up. Diagnoses and all orders for this visit: Morbid obesity with body mass index of 50 or higher - LIPID PANEL W CALCULATED LDL; Future - phentermine 30 MG capsule; Take 1 capsule by mouth daily. Type 2 diabetes mellitus without complication, unspecified whether meterman insulin use - LIPID PANEL W CALCULATED LDL; Future - Continue with phentermine. Decreased dose to eat frequent meals and monitor blood pressure - Continue to work on lifestyle changes - Continue to monitor for side effects. Monitor blood pressure. - Discussed three month weight loss goal - Labs ordered. - Follow up in one month. At least 30 minutes was spent with patient face to face performing exam, discussing progress, diet, exercise, education and plan of care for the following month. Additional time was spent review of chart and documentation of today's visit. Janell Baldwin PA-C Bariatric Surgery documented in this encounter [facility] 03-21-2024 History of Presen t illness Narrative Regarding Weight Gain: Abby Cabrera is a 48 y.o. y.o. female who presents today with the complaint of obesity. She states that she has had gradual weight gain and would like to have assistance with weight loss. She is up 5 lbs this month. 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 She shares that financially she feels this is her biggest barrier to lack of progress since her surgery with her weight. She struggles to afford exercise resources and quality food options. She reports two injuries this month keeping her from walking. She did work on adjusting her food stamps to increase this, she thinks this will help her get better quality of food and help her eat out less. She does feel good appetite suppression and increase in energy. She does feel motivated to lose weight but states the set backs this month kept her from losing weight. She feels more confident going forward. She has also been working on weight loss by: Diet changes: She does state that she was only eating one time a day some day this month. She was staying with a friend while injured and was eating out fast food with them. She has worked on decreasing her pop intake. Encouraged her to continue to eliminate liquid calorie intake and increase protein intake. Encouraged her to track calorie intake. Exercise: She will work on increasing exercise once she comes out of ankle boot. Behavior change/strategies to overcome barriers: increase exercise and lack of financial stability to remain consistent with food changes. She has used prescription medication for weight loss in the past. Including: phentermine, gastric bypass She denies heart disease She does have: see problem list Past Medical History Includes Her Wt Readings from Last 3 Encounters: 03/21/24 (!) 146.5 kg (323 lb) 03/21/24 (!) 146.7 kg (323 lb 8 oz) 02/22/24 (!) 144.6 kg (318 lb 12.8 oz) and current Body mass index is 55.44 kg/m . Reviewed today. REVIEW OF SYSTEMS: GENERAL: Negative for malaise, significant weight loss and fever HEAD: Negative for headache, swelling. NECK: Negative for lumps, goiter, pain and significant neck swelling RESPIRATORY: Negative for cough, wheezing or shortness of breath. CARDIOVASCULAR: Negative for chest pain, leg swelling or palpitations. GI: Negative for abdominal discomfort, blood in stools or black stools or change in bowel habit SKIN: Negative for lesions, rash, and itching. PSYCH: Negative for sleep disturbance, mood disorder and recent psychosocial stressors. PHYSICAL EXAM: Visit Vitals BP 144/83 (BP Location: Left arm, BP Position: Sitting) Ht 1.626 m (5' 4 ) Wt (!) 146.5 kg (323 lb) LMP 03/21/2024 SpO2 99% BMI 55.44 kg/m General appearance: obese, NAD Neuro: AOx3 [...] speech, no flight of ideas, normal affect PLAN Here today for medically managed weight loss therapy. 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 We have discussed with patient that all health optimization treatment is voluntary. Risks and benefits have been discussed of medically managed weight loss treatments. Patient elects to start/continue managed weight loss therapy and Phentermine. Abby was seen today for follow-up. Diagnoses and all orders for this visit: Morbid obesity with body mass index of 50 or higher - LIPID PANEL W CALCULATED LDL; Future - phentermine 30 MG capsule; Take 1 capsule by mouth daily. Type 2 diabetes mellitus without complication, unspecified whether snf insulin use - LIPID PANEL W CALCULATED LDL; Future - Continue with phentermine. Decreased dose to eat frequent meals and monitor blood pressure - Continue to work on lifestyle changes - Continue to monitor for side effects. Monitor blood pressure. - Discussed three month weight loss goal - Labs ordered. - Follow up in one month. At least 30 minutes was spent with patient face to face performing exam, discussing progress, diet, exercise, education and plan of care for the following month. Additional time was spent review of chart and documentation of today's visit. Janell Baldwin PA-C Bariatric Surgery documented in this encounter [facility] 03-21-2024 Miscellaneous Notes Addended by: JANELL BALDWIN on: 03/22/2024 03:18 PM Modules accepted: Orders documented in this encounter [facility] 03-21-2024 Note Addended by: JANELL BALDWIN on: 03/22/2024 03:18 PM Modules accepted: Orders [facility] 03-21-2024 History of Presen t illness Narrative OUTPATIENT BARIATRIC POST-SX NUTRITION ASSESSMENT Referring Provider: Janell Baldwin PA-C Nutrition Assessment Anthropometrics: Ht Readings from Last 1 Encounters: 02/22/24 1.626 m (5' 4 ) Wt Readings from Last 10 Encounters: 03/21/24 (!) 146.7 kg (323 lb 8 oz) 02/22/24 (!) 144.6 kg (318 lb 12.8 oz) 01/23/24 (!) 147.6 kg (325 lb 6.4 oz) [place] body weight: 54.7 kg (120 lb 9.5 oz) Adjusted ideal body weight: 91.5 kg (201 lb 12.1 oz) Body mass index is 55.53 kg/m . Pre-surgical weight: ~500 lbs on 2004: s/p RYGB Lowest Weight after surgery: 210 lb Estimated Energy Needs: Calories: 1368 (25 kcal/kg IBW) Protein: 60-82 (1.1-1.5 gm/kg IBW) Vitamins/Minerals: Pt is NOT taking all required vitamin & mineral supplements daily including: iron and calcium by >2 hours Taking calcium twice per day Meeting all bariatric [employer] recommendations Nutrition-Related Hx: Allergies/Intolerances: Splenda Foods avoided for restorationist or other reasons: NA Current Supplements: Yes - Iron, B12, calcium, vitamin D3 Previous Nutrition Education? Yes Previous methods used for weight mgmt: s/p RYGB Social Hx: Occupation: not working, applied for disability Physical activity: Pt does not engage in regularly scheduled physical activity. First week after starting medical weight loss she was walking her dog 30 minutes per day in 10 minute increments /Significant other: No Children living in the house: No Grocery shopping: patient Cooking: patient Meals out per week: 2-4 Diet Recall: Meal What Time Breakfast 1 regular soda Snack Lunch 1 regular soda Snack Dinner 1 bratwurst, no bread, 4-6 oz roasted turkey; 1 bowl cheese and broccoli soup, added chicken; 1 jr. Baconator, 2 cans soda per day 5pm Snack 1 stick cheese danna or provolone Fluids 2 cans soda, 16 oz regular tea, 64 oz water + NA Current exercise regimen: Pt is not exercising due to injured ankle/foot Post Surgery Nutrition Goals: Eat 5-6x/day (include breakfast, lunch, dinner, and 2-3 snacks): NOT MET Consume adequate protein: NOT MET Limit sugar & sugar alcohols to no more than 10 gm per meal/snack: NOT MET Drink at least 64 ounces of hydrating fluid/day: MET Eliminate carbonation and straws (caffeine if <2 months post-op and alcohol if <6 months post-op): NOT MET Exercise goal: 150 minutes of cardiovascular activity per week: NOT MET 1-2 days of strength training: NOT MET Separate eating and drinking by 30 minutes: NOT MET Eat in this order: protein first, vegetable and fruit second and whole grain carbohydrates last: NOT MET Chew your food 20-30x per bite: MET Meals should last 20-30 minutes: NOT MET Subjective comments: Ms. Abby Cabrera is a 48 y.o. female here for a bariatric surgery post-op visit. Pt is ~19 years s/p RYGB in [place], [place]. Pt is experiencing weight regain post-op. Patient states that she started to regain weight in 2017 after a bowel obstruction surgery and an increase in back pain. She has done physical therapy in the past and continues her exercises daily using resistance bands. Prior to recent ankle/foot injury she was walking with her dog 3 x per day in 10 minute increments due to experiencing significant pain after 10 minutes of walking or standing. Patient reports debilitating migraines that when present make it impossible for her to move. Dietitian and patient discussed dumping syndrome as patient experiences symptoms often after consuming high sugar or high fat foods and beverages. She does not have a gallbladder. She reports tolerating large volumes of food and is only eating typically in the evenings and sips on regular soda throughout the day. She is not currently taking a bariatric MV. She is not currently working and has no income. States she is trying to get put on disability due to her back pain. Patient and I plan to review updated bariatric nutrition information split into two follow up visits. She was provided hard copies of this education to review prior to. We will discuss goals and bariatric specific nutrition goals for weight loss. PMH: Past Medical History: Diagnosis Date Anemia Asthma Depression Diabetes mellitus Essential hypertension, benign Migraine WALTER (obstructive sleep apnea) PSH: No past surgical history on file. Nutrition-Related Labs: No results found for: GLUCOSE , HGBA1C , SODIUM , POTASSIUM , PHOSPHORUS , MAGNESIUM , CHOLESTEROL , TRIG , HDL , LDLCALC , LDLDIRECT BP Readings from Last 3 Encounters: 02/22/24 133/74 01/23/24 115/61 Nutrition Diagnosis NC-1.4 Altered GI function related to surgical alteration of the gastrointestinal tract related to s/p RYGB in 2004. NC-3.3 Obesity related to excessive energy intake and physical inactivity as evidenced by diet hx and Body mass index is 55.53 kg/m . NB-1.1 Food and nutrition-related knowledge deficit related to eating a well balanced diet, knowledge of nutrient dense foods vs. empty calories and specific calorie needs as evidenced by diet recall, interview with pt. NB-2.1 Physical inactivity related to not exercising and sedentary lifestyle as evidenced by pt report. NI-1.5 Excessive energy intake related to food-and nutrition-related knowledge deficit concerning energy intake, lack of access to healthful food choices as evidenced by diet recall and pt interview. Nutrition Intervention Nutrition Goals: Consume adequate kcals/day through 5-6 small meals (B, L, D, and 2-3 snacks) Consume adequate gm of protein/day Limit all sugar & sugar alcohol intake to <10 grams per meal/snack Consume at least 64 oz of hydrating fluid/day Continue to eliminate all carbonation and use of straws (caffeine and alcohol as advised) Eat off smaller plates and bowls Take dime sized bites and chew food 20-30x per bite, or until it is a consistent texture Meals need to last at least 20-30 minutes. Stop eating once you feel full Separate food and fluids by 30 minutes. Do not drink with meals Eat protein first, vegetables and fruits second, and whole grains last Include 150-300 minutes of physical activity per week including strength training at least twice per week Monitoring & Evaluation Nutrition appointment will be scheduled in one month Time spent with pt: 45 minutes ADAMS Irwin Registered Dietitian, Licensed Dietitian 03/21/24 documented in this encounter [facility] 02-22-2024 History of Presen t illness Narrative Chief Complaint Patient presents with New Patient MWJosias new patient Patient here for Medical Weight Loss [place]: Abby Cabrera is a 48 y.o. y.o. [...] 2 diabetes mellitus without complication, unspecified whether snf insulin use - COMPREHENSIVE METABOLIC PANEL; Future - HEMOGLOBIN A1C; Future Here today for medically managed weight loss therapy. 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 We have discussed [...] and General Surgery documented in this encounter [facility] 02-01-2024 Hospital Discharg Pily Marsh MD - 02/01/2024 12:53 AM EDT Make sure that she plenty water. Take Keflex as directed until complete. Tylenol as needed for pain. Follow-up with your primary care provider within 3 to 5 days if symptoms do not resolve. Please return immediately she develop any worsening symptoms or any other acute concerns The following attachments cannot be sent through Care Everywhere.Abdominal Pain (Turkmen)UTI (Urinary Tract Infection): Female (Turkmen)documented in this encounter [facility] 01-23-2024 History of Presen t illness Narrative Bariatric History and Physical Patient:Abby [...] a history of RYGB in 2004 in [place], [place]. Past Medical History: Diagnosis Date Anemia [...] Reactions Anesthesia S-I-40 [Propofol] Causes Blood clots [place] Zffidz-Uamdbzclymw-Rhwttl Latex [Wound Dressing Adhesive] Rash and Swelling [...] Resource Strain: Low Risk (07/24/2023) Received from [facility] Overall Financial Resource Strain (CARDIA) Difficulty of Paying Living Expenses: Not hard at all Food Insecurity: No Food Insecurity (07/24/2023) Received from [facility] Hunger Vital Sign Worried About Running Out of Food in the Last Year: Never true Ran Out of Food in the Last Year: Never true Transportation Needs: Unknown (07/24/2023) Received from [facility] PRAPARE - Transportation Lack of Transportation [...] 2 diabetes mellitus without complication, unspecified whether meterman insulin use Essential hypertension with Body mass [...] PM Bariatric Surgery documented in this encounter [facility] 06-27-2022 Hospital Discharg e instructions Surinder Mireles MD - 06/27/2022 2:44 PM EST Take your medications as prescribed. Follow-up with your neurologist in the next 2 to 3 days for reevaluation. Follow-up with your primary care physician as well. Return to the emergency department if you develop any new or worsening symptoms. The following attachments cannot be sent through Care Everywhere.Headache (Turkmen)documented in this encounter [employer] Phone: 11-08-2021 History of Presen t illness Narrative 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 residential goal 3: Pt will improve L shld strength to >/= 4 to 4+/5 for ease of lifting/carrying tasks. residential goal 4: Pt will report >/= 50% improvement in pain and overall function to improve QOL. Patient goals : to get strength/endurance back Minutes Tracking: Time In: 1545 Time Out: 1623 Minutes: 38 Timed Code Treatment Minutes: 35 Minutes Sujit Aguirre, PT, DPT 11/08/2021 documented in this encounter [facility] [employer] Phone: 09-20-2021 History of Presen t illness Narrative [facility] Inpatient/Observation/Outpatient Rehabilitation Date: 09/20/2021 Patient Name: Abby Cabrera [] Inpatient Acute/Observation [] Outpatient : 1975 [] Pt no showed for scheduled appointment [] Pt refused/declined therapy at this time due to: [x] Pt cancelled due to: [] No Reason Given [x] Sick/ill [] Other: Therapist/Oracle Drm Consultant will attempt to see this patient, at our earliest opportunity. Zulema Vincent Date: 09/20/2021 [facility] 08-06-2021 History of Presen t illness Narrative [facility] Inpatient/Observation/Outpatient Rehabilitation Date: 08/05/2021 Patient Name: Abby Cabrera [] Inpatient Acute/Observation [] Outpatient : 1975 [] Pt no showed for scheduled appointment [] Pt refused/declined therapy at this time due to: [x] Pt cancelled due to: [] No Reason Given [] Sick/ill [x] Other: Daughter is having surgery Therapist/Oracle Drm Consultant will attempt to see this patient, at our earliest opportunity. Zulema Vincent Date: 08/05/2021 documented in this encounter [employer] Phone: 07-16-2021 History of Presen t illness Narrative [facility] Outpatient Physical Therapy Evaluation Date: 07/16/2021 Patient: Abby Cabrera : 1975 CSN #: [id number] Referring Practitioner: DEIRDRE Solares Referral Date : [...] a hard time doing dishes and other desolderer. Pt states she has fallen ~8 times [...] tolerance for strengthening and mobility exercises. 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 residential goal 2: Pt will improve BLE strength grossly to 4 to 4+/5 for improved functional mobility. 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 residential goal 4: Pt will report >/= 50% improvement in pain and overall function to improve QOL. Patient goals : None stated Minutes Tracking: Time In: 1600 Time Out: 1641 Minutes: 41 Timed Code Treatment Minutes: 40 Minutes Donna Damon PT, DPT 07/16/2021 documented in this encounter [employer] Phone: 02-12-2021 Hospital Discharg Ebony Pa DO - 02/12/2021 You have chosen to [...] for repeat evaluation. documented in this encounter [employer] Phone: 11-06-2020 History of Presen t illness Narrative [facility] Inpatient/Observation/Outpatient Rehabilitation Date: 11/06/2020 Patient Name: Abby Cabrera [x] Outpatient : 1975 [x] Pt no showed for scheduled appointment Pj Siddiqui PT, DPT Date: 11/06/2020 [facility]: 10-30-2020 History of Presen t illness Narrative [facility] Inpatient/Observation/Outpatient Rehabilitation Date: 10/30/2020 Patient Name: Abby Cabrera [x] Outpatient : 1975 [x] Pt no showed for scheduled appointment Pj Siddiqui PT, DPT Date: 10/30/2020 documented in this encounter [facility] [employer] Phone: 10-23-2020 Hospital Discharg Pily Marsh MD - 10/23/2020 Tylenol and/or Motrin as needed for pain. Use [place] in place of Tylenol for pain not controlled with Tylenol. Tlwh-jxc-ovmlroh Orajel or similar prior to cotton swab [...] sent through Care Everywhere.Tooth and Gum Pain (Turkmen)Insect Stings and Bites (Turkmen)documented in this encounter [facility] [employer] Phone: 09-22-2020 History of Presen t illness Narrative [facility] Outpatient Physical Therapy Daily Note Patient: Abby Cabrera : 1975 [facility] #: [id number] Referring Practitioner: Stephanie Arredondo MD Referral Date : 08/17/20 Date: 09/22/2020 Diagnosis: Chronic migraines, G43.709 Treatment Diagnosis: Cervicogenic KO's, L shoulder impingement PT Insurance Information: [facility] Total # of Visits Approved: 18 Per Physician Order Total # of Visits to Date: 6 No Show: 2 Canceled Appointment: 0 Pre-Treatment Pain: 5/10 Subjective: Pt reports 5/10 lower back and L shoulder. States she did painting over the weekend and has increased pain. 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 Minutes Tracking: Time In: 1430 Time Out: 1517 Minutes: 47 Anusha Torres PTA Date: 09/22/2020 documented in this encounter [employer] Phone: 09-18-2020 History of Presen t illness Narrative [facility] Outpatient Physical Therapy Daily Note Patient: Abby Cabrera : 1975 CSN #: [id number] Referring Practitioner: Stephanie Arredondo MD Referral Date : 08/17/20 Date: 09/18/2020 Diagnosis: Chronic migraines, G43.709 Treatment Diagnosis: Cervicogenic KO's, L shoulder impingement PT Insurance Information: [facility] Total # of Visits Approved: 18 Per Physician Order Total # of Visits to Date: 5 No Show: 2 Canceled Appointment: 0 Pre-Treatment Pain: 6/10 Subjective: Pt states her KO have gotten better since starting therapy. Reports 6/10 L shoulder pain. Pt also reports mild KO rates 1/10. 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 Minutes Tracking: Time In: 1515 Time Out: 1600 Minutes: 45 Anusha Torres PTA Date: 09/18/2020 documented in this encounter [facility] [employer] Phone: 09-04-2020 History of Presen t illness Narrative 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 Patient goals : Manage pain Minutes Tracking: Time In: 1315 Time Out: 1425 Minutes: 70 Timed Code Treatment Minutes: 66 Minutes Pj Siddiqui PT, DPT 09/04/2020 documented in this encounter [employer]: Evaluation note Diagnosis Pain, dental- Primary Unspecified disorder of the teeth and supporting structures Insect bite of right upper arm, initial encounter documented in this encounter [employer]: evaluation note* Diagnosis Polyneuropathy Unspecified hereditary and idiopathic peripheral neuropathy Hypocalcemia documented in this encounter [employer]: evaluation note* Diagnosis Diarrhea, unspecified type- Primary Nonintractable headache, unspecified chronicity pattern, unspecified headache type Syncope and collapse documented in this encounter [employer]: evaluation note* Diagnosis B12 deficiency Other B-complex deficiencies documented in this encounter [employer] Phone: evaluation note* Diagnosis Acute nonintractable headache, unspecified headache type- Primary documented in this encounter [employer] Phone: evaluation note* Diagnosis Acute UTI Urinary tract infection, site not specified documented in this encounter [facility] [employer] [facility]* Diagnosis Morbid obesity with BMI of 50.0-59.9, adult- Primary Type 2 diabetes mellitus without complication, unspecified whether meterman insulin use Essential hypertension Unspecified essential hypertension [facility] Diagnosis Abdominal pain, unspecified abdominal location- Primary Urinary tract infection without hematuria, site unspecified documented in this encounter [facility] [employer] [facility] note* Diagnosis Morbid obesity with body mass index of 50 or higher- Primary WALTER (obstructive sleep apnea) Obstructive sleep apnea (adult) (pediatric) Type 2 diabetes mellitus without complication, unspecified whether snf insulin use [facility]* Diagnosis Nutritional counseling- Primary Morbid obesity with BMI of 50.0-59.9, adult [facility] Morbid obesity with body mass index of 50 or higher- Primary Type 2 diabetes mellitus without complication, unspecified whether meterman insulin use [facility] Diagnosis Morbid obesity with body mass index of 50 or higher- Primary Type 2 diabetes mellitus without complication, unspecified whether meterman insulin use [facility] Consultation (Routine) - New Request Specialty Diagnoses / Procedures Referred By Salome t Referred To Contact Sleep Medicine Diagnoses Morbid obesity with body mass index of 50 or higher WALTER (obstructive sleep apnea) Janell Baldwin PA-C [address] [place] [address] Jenny Merritt [employer] [address] [place] [address] Referral ID Status Reason Start Date Expiration Date V isits Requested Visits Authorized [id number] New Request 02/22/2024 03/18/2025 1 1 [facility] Discharge Instructions * Instructions* Abby Cordova PA-C - 12/24/2018 Call to arrange follow-up with primary care this week. * Attachments The following attachments cannot be sent through Care Everywhere. * Sore Throat (Turkmen) documented in this encounter* Attachments The following attachments cannot be sent through Care Everywhere. * Chest Pain (Turkmen) documented in this encounter* Attachments The following attachments cannot be sent through Care Everywhere. * Viral Infections (Turkmen) * Coronavirus Disease (COVID-19): General Info (Turkmen) documented in this encounter* Instructions* Emil Mays [...] sent through Care Everywhere. * Tawana Dermatitis (Turkmen) * Back: Strain (Turkmen) documented in this encounter* Attachments The following attachments cannot be sent through Care Everywhere. * URI (Upper Respiratory Infection) (Turkmen) * Parotitis (Turkmen) documented in this encounter* Instructions* Pily Mariscal MD - 06/28/2020 Tylenol and or Motrin as needed for any pain. May use [place] in place of Tylenol for pain not controlled with [id number] medications. Continue your current medications as prescribed heat or ice as desired for comfort. With a primary care physician for evaluation. Seek medical attention for anyacute concerns. * Attachments The following attachments cannot be sent through Care Everywhere. * Contusion (Turkmen) documented in this encounter* Attachments The following attachments cannot be sent through Care Everywhere. * Tonsillitis (Turkmen) documented in this encounter Assessments Diagnosis Acute [...] upper respiratory infections of unspecified site Diagnosis WALTER (obstructive sleep apnea) Obstructive sleep apnea (adult) (pediatric) Diagnosis Multiple contusions- Primary Contusion of multiple sites, not elsewhere classified Fall, initial encounter Diagnosis Acute pharyngitis, unspecified etiology- Primary Acute tonsillitis, unspecified etiology Advance Directives No Advanced Directives Records FoundDocuments on File Type Date Recorded Patient Client Resolution Specialist Expl anation Advance Directives and Living Will Power of Pet Feeder Latest Code Status on File Code Status Date Activated Date Inactivated Comments Full Code 03/19/2018 8:00 AM 03/20/2018 3:23 PM Full Code 01/23/2017 7:49 PM 02/03/2017 5:05 PM Documents on File Type Date Recorded Patient Client Resolution Specialist Expl anation Advance Directives and Living Will Power of Pet Feeder Latest Code Status on File Code Status Date Activated Date Inactivated Comments Full Code 03/19/2018 8:00 AM 03/20/2018 3:23 PM Full Code 01/23/2017 7:49 PM 02/03/2017 5:05 PM Documents on File Type Date Recorded Patient Client Resolution Specialist Expl anation ACP-Advance Directive ACP-Power of Pet Feeder Healthcare Agents on File Name Relationship Healthcare [...] Documents on File Type Date Recorded Patient Client Resolution Specialist Expl anation ACP-Advance Directive ACP-Power of Pet Feeder Healthcare Agents on File Name Relationship Healthcare [...] Procedures Sleep Study with PAP Titration Brianna Verde W, [employer] [address] [place] [address] Specialty Diagnoses / Procedures Referred By Salome t Referred To Contact General Surgery Diagnoses Morbid obesity with BMI of 50.0-59.9, adult Type 2 diabetes mellitus without complication, unspecified whether snf insulin use Essential hypertension Wayne Joseph, DO [address] [place] [address] Janell Baldwin, KEI [address] [place] [address] Referral ID Status Reason Start Date Expiration Date V isits Requested Visits Authorized [id number] New Request 01/23/2024 02/16/2025 1 1 Additional [...] type Procedures Brenda Calhoun MD [address] [place] [address] [facility] [address] [place] [address] Reason Comments Abdominal Pain left and right [...] Procedures Referred By Contact Referred To Contact [facility] Diagnoses WALTER (obstructive sleep apnea) Procedures Sleep Study with PAP Titration Brianna Verde, [employer] [address] [place] [address] Reason Comments Fall patient fell last ni [...] out Specialty Diagnoses / Procedures Referred By Contac t Referred To Contact Physical Therapy Diagnoses Chronic bilateral low back pain without sciatica Chronic left shoulder pain Chronic neck pain Brianna Verde, [employer] [address] [place] [address] [facility] Physical Therapy [address] [place] [address] Referral ID Status Reason Start Date Expiration Date V isits Requested Visits Authorized [id number] Open Specialty Services Required 05/21/2021 05/21/2022 1 [...] patient Specialty Diagnoses / Procedures Referred By Salome walsh Referred To Contact General Surgery Diagnoses Morbid obesity with BMI of 50.0-59.9, adult Type 2 diabetes mellitus without complication, unspecified whether meterman insulin use Essential hypertension Wayne Joseph, [address] [place] [address] Janell Baldwin PA-C [address] [place] [address] Referral ID Status Reason Start Date Expiration Date V isits Requested Visits Authorized [id number] New Request 01/23/2024 02/16/2025 1 1 Reason Comments Nutrition Consultation Specialty Diagnoses / Procedures Referred By Salome walsh Referred To Contact Registered Dietitian / Nutrition and Dietetics Diagnoses mwl initial Procedures NEW PATIENT - GEOVANNI Janell Baldwin PA-C [address] [place] [address] Jean Paul Almanzar, RD [address] [place] [address] Referral ID Status Reason Start Date Expiration Date V isits Requested Visits Authorized [id number] Pending Review 03/21/2024 04/15/2025 1 1 Reason Comments Follow-up [facility] INFORMATION SOURCE (unrecogn ized section and content) DATE CREATED AUTHOR 07/18/2019 [facility] DATE CREATED AUTHOR AUTHOR'S ORGANIZ ATION 01/18/2021 [facility] DATE CREATED AUTHOR AUTHOR'S ORGANIZ ATION 09/08/2023 [facility] DATE CREATED AUTHOR AUTHOR'S ORGANIZ ATION 02/03/2024 [facility] DATE CREATED AUTHOR AUTHOR'S ORGANIZ ATION 03/23/2024 [facility] Ordered Prescriptions (unrec ognized section [...] over 1 Hours, ONCE, On Mon02/12/21 at 194, For 1 dose 1944 (Due) SUMAtriptan (IMITREX) tablet 50 mg (COMPLETED) 50 mg, Oral, ONCE, On Mon02/12/21 at 1944, For 1 dose 1948 (Given - Provid er: Pilar Duque RN) [...] 650 mg, Oral, ONCE, 1 dose, On 01/31/24 at 2345, Maximum dose of acetaminophen is 4000 mg from all sources in 24 hours. 2347 (Given - Provider: Daniella Boles RN) cephALEXin (KEFLEX) capsule 500 mg (COMPLETED) 500 [...] ONCE, 1 dose, On Mon01/31/24 at 2200 2236 (Given - Provider: Daniella Boles, PAPA) sodium chloride 0.9 % bolus 1,000 mL (COMPLETED) 1,000 mL (7.11 mL/kg), IntraVENous, at 1,935.5 mL/hr, Administer over 31 Minutes, ONCE, On Mon01/31/24 at 2130, For 1 dose, For adult patients weighing > 55 kg (120 lbs.) and less than <50 years of age initiate 0.9NS at 500 mL/ hr. All bolus orders are to be given over 10 to 15 minutes 221 (New Bag - Provider: Amanda Stern RN)2344 (Stopped - Provider: Daniella Boles RN) sodium chloride flush 0.9 % injection 3 mL(Linked Group 1) 3 mL, IntraVENous, EVERY 8 HOURS, First dose on Mon01/31/24 at 2130, Until Discontinued, Flush line with 3-5 mL 2236 (Given - Provider: Daniella Boles, PAPA) 0530 (Due)1330 (Due)2130 (Due) PRN Medication Order 01/30/2024 01/31/2024 02/01/2024 iopamidol (ISOVUE-370) 76 % injection 75 mL (COMPLETED) 75 mL, IntraVENous, IMG ONCE PRN, 1 dose, Starting on Mon01/31/24 at 2238, Until Mon01/31/24 at 2243, Other 2243 (Given - Provider: Kaya Laughlin) Linked Groups Order Group 1: Saline lock IV (COMPLETED) Routine, CONTINUOUS, Starting on Mon01/31/24 at 2130, Until Specified And sodium chloride flush 0.9 % injection 3 mLJump to med 3 mL, IntraVENous, EVERY 8 HOURS, First dose on Mon01/31/24 at 2130, Until Discontinued, Flush line with 3-5 mL Care Teams (unrecognized sec tion and content) Oil Well Drilling Manager Relationship Specialty Start Date End Date Might, Brianna Chavez APRN [facility] PCP - General Nurse Practitioner 06/16/16 [employer] Relationship Specialty Start Date End Date Might, Brianna Chavez APRN - [facility] PCP - General Nurse Practitioner 06/16/16 [employer] Well [employer] Manager Relationship Specialty Start Date End Date Might, Brianna Chavez APRN [facility] PCP - General Nurse Practitioner 06/16/16 [employer] Well Drilling Manager Relationship Specialty Start Date End Date Might, Brianna Chavez APRN - [facility] PCP - General Nurse Practitioner 06/16/16 Oil Well Drilling Manager Relationship Specialty Start Date End Date Might, Brianna Chavez APRN [facility] PCP - General Nurse Practitioner 06/16/16 Oil Well Drilling Manager Relationship Specialty Start Date End Date Might, Brianna Chavez APRN [facility] PCP - General Nurse Practitioner 06/16/16 Oil Well Drilling Manager Relationship Specialty Start Date End Date Might, Brianna Chavez APRN - [facility] PCP - General Nurse Practitioner 06/16/16 Oil Well Drilling Manager Relationship Specialty Start Date End Date Might, Brianna Chavez APRN [facility] PCP - General Nurse Practitioner 06/16/16 Oil Well Drilling Manager Relationship Specialty Start Date End Date Might, Brianna Chavez APRN [facility] PCP - General Nurse Practitioner 06/16/16 Oil Well Drilling Manager Relationship Specialty Start Date End Date Might, Brianna Chavez APRN [facility] PCP - General Nurse Practitioner 06/16/16 FOR [...] BE BASED ON THE PRIMARY CLINICAL RECORDS. [facility]. provides no warranty or guarantee of the accuracy or completeness of information in this document.
--- NOTE | 2024-03-24 14:25 | ED_ITS ---
HPI HPI - General Adult General Chief complaint: Skin/Abscess/Foreign Body Stated complaint: STICHES REMOVAL LT FOOT Time Seen by Provider: 03/24/24 14:11 Source: patient Mode of arrival: walk-in History of Present Illness HPI narrative: The patient coming to the ER for suture removal, she does not have any fever chills or any other concerns she was worried about infection because she thought she saw some drainage last night although it is not present today Related Data Previous Rx's ?Medication ?Instructions ?Recorded amoxicillin 875 mg-potassium 1 tab PO BID #14 tabs 03/24/24 clavulanate 125 mg tablet Allergies Allergy/AdvReac Type Severity Reaction Status Date / Time ibuprofen Allergy Severe Verified 05/20/23 16:11 Opioid HPI Opioid Management Most Recent Opioid Data: Last Pain Scale 8 03/17/24 09:17 03/17/24 Review of Systems ROS Status of ROS 10 or more systems reviewed and unremark able except as noted in history and below PFSH PFSH Social History Smoking status: Never smoker Little interest or pleasure in doing things: not at all Feeling down, depressed, or hopeless: not at all Exam Narrative Exam Narrative: Nurses notes and vital signs reviewed and patient is not hypoxic. Left foot: The patient have laceration that is healing well with no signs of infection no redness no hotness no drainage and sutures are intact General: Well-appearing and in no apparent distress. Skin: Warm, dry, no pallor noted. No rash. Head: Normocephalic, atraumatic. Neck: Supple, non-tender. Eye: Pupils are equal, round and EOMI. No scleral icterus. Ears, Nose, Mouth, and Throat: TM are clear, no nasal mucosal hypertrophy. Oral mucosa is moist, no posterior oropharynx erythema, uvula is mid-line Cardiovascular: Regular Rate and Rhythm without murmur, gallop or rub. Respiratory: No accessory muscle use or respiratory distress. Lungs are clear to auscultation, no wheezing, rales or rhonchi Chest Wall: no tenderness Back: No midline thoracic or lumbar vertebral tenderness. No CVA tenderness Musculoskeletal: normal ROM, no calf or popliteal tenderness, no lower extremity edema/swelling GI: Abdomen is soft, non-distended. Normal bowel sounds. No masses appreciated. No tenderness to palpation. No rebound, guarding, or rigidity noted. Neurological: A&O x4. No cranial nerve dysfunction observed. No truncal ataxia. Moves all extremities. Sensation intact. Psychiatric: Cooperative and interactive. Normal mood and affect. Constitutional Vital Signs, click to edit/add: Last Vital Signs Temp 98.6 F 03/24/24 14:11 Pulse 76 03/24/24 14:11 Resp 16 03/24/24 14:11 BP 123/79 03/24/24 14:11 Pulse Ox 96 03/24/24 14:11 Course Vital Signs Vital signs: Vital Signs Temperature 98.6 F 03/24/24 14:11 Pulse Rate 76 03/24/24 14:11 Respiratory Rate 16 03/24/24 14:11 Blood Pressure 123/79 03/24/24 14:11 Pulse Oximetry 96 03/24/24 14:11 Temperature 98.6 F 03/24/24 14:11 Pulse Rate 76 03/24/24 14:11 Respiratory Rate 16 03/24/24 14:11 Blood Pressure 123/79 03/24/24 14:11 Pulse Oximetry 96 03/24/24 14:11 Medical Decision Making [facility] Narrative Medical decision making narrative: The patient wound shows no signs of infection and the suture was removed with no difficulty the patient did request to be provided antibiotic prescription because she is worried about infection I did explain to her that right now this healing is appropriate and there is no signs of infection but she was provided with Augmentin as per the patient request The patient is to follow up with primary care physician in next 2-3 days or to return to the emergency department should any of the signs or symptoms worsen or new symptoms develop. The patient agrees with the following Diagnosis and Treatment plan and the patient will be discharged home. Discharge Plan Discharge Chief Complaint: Skin/Abscess/Foreign Body Clinical Impression: Visit for suture removal Patient Disposition: Home, Self-Care Time of Disposition Decision: 14:23 Condition: Good Prescriptions / Home Meds: New amoxicillin-pot clavulanate 875-125 mg tablet 1 tab PO BID Qty: 14 0RF Print Language: South Korean Instructions: Stitches Removal (ED) Referrals: Physician,Non-Staff, MD [Primary Care Provider] - 1 week
== END 2024-03-24 14:33 | disposition home or self-care (01) ==
PROVIDERS: Emergency Provider Emergency Medicine
DX: S91.312D Laceration without foreign body, left foot, subsequent encounter (principal); X58.XXXD Exposure to other specified factors, subsequent encounter
CPT/HCPCS: 99281

== ENCOUNTER 2024-06-08 10:15 | Emergency (ER) | payer OTHER, SELFPAY ==
[2024-06-08 10:21] VITALS: BP 154/91; PULSE 102; TEMP 37; O2SAT 95; BMI 53.4
--- OUTSIDE RECORDS SUMMARY | 2024-06-08 10:22 | XMS_ITS | CCD ---
Author Organization [facility] Care Team Providers Care Belt Builder Name Role Phone Might, Brianna Chavez Primary Care Provider [phone] AL-BRENDA AUSTIN A Referring Unavailable MIGHT, BRIANNA Chavez Primary Care Unavailable Might, Brianna Chavez Primary Care Provider [phone] MightBrianna Primary Care Provider [phone] MightBrianna Primary Care Provider [phone] Might SMOKING PIPE MAKER - CHILD DEVELOPMENT TEACHERBrianna Primary Care Provider Kaye Kruse Primary Care Physician DR CRAIG Cantor Admitting Unavailable ERNIE FLORES Consulting Unavailable DR CRAIG BUSTILLO Attending Unavailable PING OWENS Consulting Unavailable Might SMOKING PIPE MAKER - CHILD DEVELOPMENT TEACHERBrianna Primary Care Provider Might SMOKING PIPE MAKER - CHILD DEVELOPMENT TEACHER, Brianna W Primary Care Provider Might SMOKING PIPE MAKER - CHILD DEVELOPMENT TEACHER, Brianna W Primary Care Provider Might SMOKING PIPE MAKER - CHILD DEVELOPMENT TEACHERBrianna W Primary Care Provider Nithin Zee Attending Unavailab le Nithin Zee Admitting Unavailab le Unavailable Primary Care Provider Unavailabl e Might SMOKING PIPE MAKER - CHILD DEVELOPMENT TEACHERBrianna W Primary Care Provider MIGHT, BRIANNA Chavez Primary Care Unavailable MIGHT, BRIANNA Chavez Primary Care Unavailable JESSICA HCAVES Attending Unavailable MIGHTBRAINNA Primary Care Unavailable JEN HELMS Referring Unavailable [...] sources) bee venom Substance Allergy 7 Anaphylaxis [facility] Latex (8 sources) Latex Substance Allergy 4 Hives, Itching, Swelling [facility] Saccharin (7 sources) Saccharin Drug Allergy 8 Other (See Comments) [facility] Work Phone: (20 sources) bee venom Propensity to adverse reactions to drug 7 Anaphylaxis, Swelling [place], [place] (20 sources) Latex Propensity to adverse reactions to drug 4 Hives, Itching, Swelling [place], [place] (20 sources) Saccharin Drug Allergy 8 Other (See Comments) [place] (20 sources) Aspartame And Phenylalanine Propensity to adverse reactions to drug 8 Other (See Comments) [place] (20 sources) Flavoring Agent Propensity to adverse reactions to drug 8 Other (See Comments), Nausea and Vomiting [place] (20 sources) Sucralose Propensity to adverse reactions to drug 8 Other (See Comments) [place] (1 source) Latex Drug allergy (disorder) 1 [facility] (2 sources) Ibuprofen Drug Allergy 3 [facility] (5 sources) Propofol Drug Allergy 4 [facility] (5 sources) Wound Dressing Adhesive Propensity to adverse reactions to drug 4 Rash, Swelling [facility] Medications Current Medications Medication Drug Class(es) Dates [...] pain 10 tablet 0 04/07/2019 04/10/2019 Active [id number] 200 actuat albuterol 0.09 mg/actuat metered dose [...] every week vitamin D (ERGOCALCIFEROL) 1.25 MG (70280 UT) CAPS capsule Take 1 capsule by mouth once a week 12 capsule 1 10/01/2019 Active Start: 07-18-2019 take 1 capsule by mo uth every week vitamin D (ERGOCALCIFEROL) 1.25 MG (65541 UT) CAPS capsule Take 1 capsule by [...] Polyene Antifungal Start: 07-24-2023 nystatin (M YCOSTATIN) 743860 UNIT/GM ointment Apply topically 2 times daily. 30 g 07/24/2023 Active Start: 01-03-2022 nystatin (MYCO STATIN) 009951 UNIT/GM ointment Indications: Candidal intertrigo Apply topically 2 times daily. 30 g 0 01/03/2022 Active Start: 11-25-2020 nystatin (MYCO STATIN) 462118 UNIT/GM cream Apply topically 2 times daily. 30 g 0 11/25/2020 Active Start: 11-03-2019 nystatin (MYCO STATIN) 017553 UNIT/GM cream Apply topically 2 times daily. [...] (Dose adjustment (suppress cancel msg)) polymyxin b 85065 unt/ml / trimethoprim 1 mg/ml ophthalmic solution (1 source) Dihydrofolate Reductase Inhibitor Antibacterial, Polymyxin-class Antibacterial Start: 06-20-2022 End: 06-30-2022 take 1 drop(s) into the eye(s) every four hours trimethoprim-polymyxin b (POLYTRIM) 08877-1.1 UNIT/ML-% ophthalmic solution Place 1 drop into [...] MISC (17 sources) Start: 11-25-2020 Tens Unit [facility] Indications: Osteoarthritis of spine, unspecified spinal osteoarthritis complication status, unspecified spinal region by Does not apply route 1 each 0 11/25/2020 Active Start: 11-25-2020 Tens Unit [facility] Indications: Osteoarthritis of spine, unspecified spinal osteoarthritis complication status, unspecified spinal region , Chronic bilateral low back pain without sciatica by Does not apply route 1 each 0 11/25/2020 Active Start: 06-11-2020 Tens Unit [facility] Indications: Chronic bilateral low back pain without [...] 07/26/2018 Active take 1 capsule by mo [facility] twice daily as needed tizanidine [...] Start: 02-06-2018 take 1 capsule by mo [facility] once daily venlafaxine (EFFEXOR XR) 75 MG extended release capsule Indications: Anxiety and depression take 1 capsule by mouth once daily TAKE WITH VENLAFAXINE 150 MG FOR A TOTAL DOSE OF 225 MGS 90 capsule 3 02/06/2018 Active take 1 capsule by mo [facility] twice daily venlafaxine 150 MG [...] 03-21-2024 A:G RATIO 1.3 RATIO Normal 1.3-2.2 [facility] Comment on above: Performed By: #### C MPF #### [place] [address] ALBUMIN 4.2 G/dl Normal 3.5-5.0 [facility] Comment on above: Performed By: #### C MPF #### Testing performed at [place] [id number] ALP [Catalytic activity/Vol] 69 U/L Normal 38-126 [facility] Comment on above: Performed By: #### C MPF #### Testing performed at [address] [address] ALT [Catalytic activity/Vol] 14 U/L Normal <35 [facility] Comment on above: Performed By: #### C MPF #### Testing performed at [place] [id number] AST [Catalytic activity/Vol] 22 U/L Normal 14-36 [facility] Comment on above: Performed By: #### C MPF #### [place] [address] Bilirubin [Mass/Vol] 0.5 mg/dL Normal 0.2-1.3 [facility] Comment on above: Performed By: #### C MPF #### Testing performed at [address] [address] Calcium [Mass/Vol] 8.9 mg/dL Normal 8.4-10.2 [facility] Comment on above: Performed By: #### C MPF #### Testing performed at [place] [id number] Chloride [Moles/Vol] 103 mmol/L Normal 98-107 [facility] Comment on above: Result Comment: Mary fernandez note: Triglyceride levels of 600mg/dL or higher may positively bias chloride results by approximately 2.1 mmol Performed By: #### C MPF #### [place] [address] CO2 [Moles/Vol] 21 mmol/L Low 22-30 [facility] Comment on above: Performed By: #### C MPF #### Testing performed at [address] [address] Creatinine [Mass/Vol] 0.80 mg/dL Normal 0.7-1.2 [facility] Comment on above: Performed By: #### C MPF #### Testing performed at [address] [address] EST. GFR, 99 ml/min/1.73sq.m [facility] Comment on above: Performed By: #### C MPF #### Testing performed at [address] [address] EST. GFR,Non 82 ml/min/1.73sq.m [facility] Comment on above: Performed By: #### C MPF #### Testing performed at [address] [address] GFR Information Average GFR for 40-49 years old = 99. Normal [facility] Comment on above: Result Comment: Scale Expert godfrey Kidney disease, GFR = <60. Kidney failure, GFR = <15. The GFR estimate is not adjusted for extreme body surface area or acute process, nor has it been validated for women or ethnic groups other than and . Testing performed at [place] [address] Performed By: #### C MPF #### [place] [address] Glucose [Mass/Vol] 89 mg/dL Normal 70-100 [facility] Comment on above: Result Comment: NORMAL <100 mg/dL PREDIABETES 101-126 mg/dL DIABETES 126 mg/dL or higher Performed By: #### C MPF #### [place] [address] Potassium [Moles/Vol] 4.0 mmol/L Normal 3.5-5.1 [facility] Comment on above: Performed By: #### C MPF #### [place] [address] Protein [Mass/Vol] 7.4 g/dL Normal 6.3-8.2 [facility] Comment on above: Performed By: #### C MPF #### [place] [address] Sodium [Moles/Vol] 134 mmol/L Low 137-145 [facility] Comment on above: Performed By: #### C MPF #### [place] [address] Urea nitrogen [Mass/Vol] 18 mg/dL Normal 7-20 [facility] Comment on above: Performed By: #### C MPF #### [place] [address] HEMOGLOBIN A1Con 03-21-2024 Glucose [Mass/Vol] 85 mg/dL Normal [facility] Comment on above: Result Comment: Test ing performed at [place] [address] Performed By: #### H A1CT #### [place] [address] HbA1c (Bld) [Mass fraction] 4.6 % Normal 0-6 [facility] Comment on above: Result Comment: NORMAL <5.7% PREDIABETES 5.7-6.4% DIABETES 6.5% OR HIGHER Performed By: #### H A1CT #### Testing performed at [address] [address] LIPID PROFILEon 03-21-2024 Cholesterol [Mass/Vol] 157 mg/dL Normal 107-217 [facility] Comment on above: Performed By: #### L IP2 #### Testing performed at [address] [address] Cholesterol in HDL [Mass/Vol] 41 mg/dL Normal 33-75 [facility] Comment on above: Performed By: #### L IP2 #### Testing performed at [place] [id number] Cholesterol in LDL [Mass/Vol] 95 mg/dL Normal <100 [facility] Comment on above: Performed By: #### L IP2 #### Testing performed at [place] [id number] Cholesterol in VLDL [Mass/Vol] 21 mg/dL Normal 5.0-25 [facility] Comment on above: Performed By: #### L IP2 #### Testing performed at [address] [address] Cholesterol.total/Chol esterol in HDL [Mass ratio] 3.83 {ratio} Normal [facility] Comment on above: Result Comment: RISK TOTAL/HDL RATIO MEN WOMEN 1/2 AVERAGE 3.43 3.27 AVERAGE 4.97 4.44 2X AVERAGE 9.55 7.05 3X AVERAGE 23.99 11.04 Testing performed at [place] [address] Performed By: #### L IP2 #### Testing performed at [address] [address] Triglyceride [Mass/Vol] 105 mg/dL Normal 0-150 [facility] Comment on above: Performed By: #### L IP2 #### Testing performed at [address] [address] Laboratory - Chemistry and C hemistry - challengeon 03-21-2024 Cholesterol [Mass/Vol] 157 mg/dL [facility] Cholesterol in HDL [Mass/Vol] 41 mg/dL [facility] Cholesterol in LDL [Mass/Vol] 95 mg/dL NINF [facility] Cholesterol in VLDL [Mass/Vol] 21 mg/dL [facility] Cholesterol.total/Chol esterol in HDL [Mass ratio] 3.83 {ratio} RATIO [facility] Comment on above: RISK TOTAL/HDL RATIO MEN WOMEN 1/2 AVERAGE 3.43 3.27 AVERAGE 4.97 4.44 2X AVERAGE 9.55 7.05 3X AVERAGE 23.99 11.04 Testing performed at [place], [place] [address] Triglyceride [Mass/Vol] 105 mg/dL [facility] No Panel Informationon 03-21 [facility] CBC with Diffon 01-31-2024 Basophils (Bld) [#/Vol] 0.06 10*3/uL [facility] Basophils/100 WBC (Bld) 1 % 0 - 2 % [facility] Eosinophils (Bld) [#/Vol] 0.26 10*3/uL [facility] Eosinophils/100 WBC (Bld) 2 % 1 - 4 % [facility] Erythrocyte distribution width (RBC) [Ratio] 13.6 % 11.8 - 14.4 % [facility] Hematocrit (Bld) [Volume fraction] 40.2 % 36.3 - 47.1 % [facility] Hemoglobin (Bld) [Mass/Vol] 13.4 g/dL 11.9 - 15.1 g/dL [facility] Immature granulocytes (Bld) [#/Vol] 0.05 10*3/uL [facility] Immature granulocytes/100 WBC (Bld) 0 % 0 [facility] Interpretation and review of laboratory results Abnormal [facility] Lymphocytes/100 WBC (Bld) 27 % 24 - 43 % [facility] Lymphocytes/100 WBC (Bld) 3.15 % [facility] MCH (RBC) [Entitic mass] 28.9 pg 25.2 - 33.5 pg [facility] MCHC (RBC) [Mass/Vol] 33.3 g/dL 28.4 - 34.8 g/dL [facility] MCV (RBC) [Entitic vol] 86.6 fL 82.6 - 102.9 fL [facility] Monocytes/100 WBC (Bld) 6 % 3 - 12 % [facility] Monocytes/100 WBC (Bld) 0.71 % [facility] Neutrophils/100 WBC (Bld) 64 % 36 - 65 % [facility] Nucleated RBC/100 WBC (Bld) [Ratio] 0.0 % 0.0 per 100 WBC [facility] Platelet mean volume (Bld) [Entitic vol] 11.2 fL 8.1 - 13.5 fL [facility] Platelets (Bld) [#/Vol] 440 10*3/uL [facility] RBC (Bld) [#/Vol] 4.64 10*6/uL 3.95 - 5.1 1 m/uL [facility] Segmented neutrophils/100 WBC (Bld) 7.57 % [facility] WBC other (Bld) [#/Vol] 11.8 High [facility] Abs. Basophil 0.06 k/uL Normal 0.00-0.20 [facility] Comment on above: Performed By: #### T MANISH ALVA, CP, LIP ####[address] , [facility]83 Lab Director: Marcelino Lopez MD Abs.Imm.Granulocyte 0.05 k/uL Normal 0.00-0.30 [facility] Comment on above: Performed By: #### T ARTIE, MANISH, CP, LIP ####[facility] [place] , [place] [address] Lab Director: Marcelino Lopez MD Abs.Neutrophil (Seg) 7.57 k/uL Normal 1.50-8.10 [facility] Comment on above: Performed By: #### T ARTIE, CDP, CP, LIP ####[facility] [place] , [place] [address] Lab Director: Marcelino Lopez MD Basophils/100 WBC (Bld) 1 % Normal 0-2 [facility] Comment on above: Performed By: #### T ROPI, CDP, CP, LIP ####[address] , [place] [address] Lab Director: Marcelino Lopez MD Eosinophils (Bld) [#/Vol] 0.26 10*3/uL Normal 0.00-0.44 [facility] Comment on above: Performed By: #### T ROPI, CDP, CP, LIP ####[address] [place], [place] [address] lab Director: Marcelino Lopez MD Eosinophils/100 WBC (Bld) 2 % Normal 1-4 [facility] Comment on above: Performed By: #### T ROPI, CDP, CP, LIP ####[address] , [facility]83 Lab Director: Marcelino Lopez MD Erythrocyte distribution width (RBC) [Ratio] 13.6 % Normal 11.8-14.4 [facility] Comment on above: Performed By: #### T ROPI, CDP, CP, LIP ####[address] , [place] [id number] Lab Director: Marcelino Lopez MD Hematocrit (Bld) [Volume fraction] 40.2 % Normal 36.3-47.1 [facility] Comment on above: Performed By: #### T ROPI, CDP, CP, LIP ####[address] , [place] [id number] Lab Director: Marcelino Lopez MD Hemoglobin (Bld) [Mass/Vol] 13.4 g/dL Normal 11.9-15.1 [facility] Comment on above: Performed By: #### T ROPI, CDP, CP, LIP ####[address] , [place] [id number] lab Director: Marcelino Lopez MD Immature granulocytes/100 WBC (Bld) 0 % Normal 0 [facility] Comment on above: Performed By: #### T ROPI, CDP, CP, LIP ####[address] , [facility]83 lab Director: Marcelino Lopez MD Lymphocytes (Bld) [#/Vol] 3.15 10*3/uL Normal 1.10-3.70 [facility] Comment on above: Performed By: #### T ROPI, CDP, CP, LIP ####[address] , [facility]83 lab Director: Marcelino Lopez MD Lymphocytes/100 WBC (Bld) 27 % Normal 24-43 [facility] Comment on above: Performed By: #### T ROPI, CDP, CP, LIP ####[address] , [facility]83 lab Director: Marcelino Lopez MD MCH (RBC) [Entitic mass] 28.9 pg Normal 25.2-33.5 [facility] Comment on above: Performed By: #### T ROPI, CDP, CP, LIP ####[address] , [facility]83 lab Director: Marcelino Lopez MD MCHC (RBC) [Mass/Vol] 33.3 g/dL Normal 28.4-34.8 [facility] Comment on above: Performed By: #### T ROPI, CDP, CP, LIP ####[address] , [facility]83 Lab Director: Marcelino Lopez MD MCV (RBC) [Entitic vol] 86.6 fL Normal 82.6-102.9 [facility] Comment on above: Performed By: #### T ROPI, CDP, CP, LIP ####[address] [place] [id number] Lab Director: Marcelino Lopez MD Monocytes (Bld) [#/Vol] 0.71 10*3/uL Normal 0.10-1.20 [facility] Comment on above: Performed By: #### T ROPI, CDP, CP, LIP ####[address] , [place] [phone] Director: Marcelino Lopez MD Monocytes/100 WBC (Bld) 6 % Normal 3-12 [facility] Comment on above: Performed By: #### T ROPI, CDP, CP, LIP ####[address] [place], [place] [address])[phone] Director: Marcelino Lopez MD Neutrophil (Seg) 64 % Normal 36-65 [facility] Comment on above: Performed By: #### T ROPI, CDP, CP, LIP ####[address] , [facility]83[facility])[phone] Director: Marcelino Lopez MD NRBC Automated 0.0 per 100 WBC Normal 0.0 [facility] Comment on above: Performed By: #### T ROPI, CDP, CP, LIP ####[address] , [place] [phone] Director: Marcelino Lopez MD Platelet mean volume (Bld) [Entitic vol] 11.2 fL Normal 8.1-13.5 [facility] Comment on above: Performed By: #### T ROPI, CDP, CP, LIP ####[address] , [place] [phone] Director: Marcelino Lopez MD Platelets (Bld) [#/Vol] 440 10*3/uL Normal 138-453 [facility] Comment on above: Performed By: #### T ROPI, CDP, CP, LIP ####[address] [place] [address] Lab Director: Marcelino Lopez MD RBC (Bld) [#/Vol] 4.64 10*6/uL Normal 3.95-5.11 [facility] Comment on above: Performed By: #### T MANISH ALVA, CP, LIP ####[facility] [place] [address] lab Director: Marcelino Lopez MD WBC (Bld) [#/Vol] 11.8 10*3/uL High 3.5-11.3 [facility] Comment on above: Performed By: #### T MANISH ALVA, CP, LIP ####[facility] [place] [address] lab Director: Marcelino Lopez MD [facility] 01-31-2024 Albumin [Mass/Vol] 4.3 g/dL 3.5 - 5.2 g/dL [facility] Albumin/Globulin [Mass ratio] 1.2 {ratio} 1.0 - 2.5 [facility] ALP [Catalytic activity/Vol] 100 U/L 35 - 104 U/L [facility] ALT [Catalytic activity/Vol] 9 U/L Low 10 - 35 U/L [facility] Anion gap [Moles/Vol] 13 mmol/L 9 - 16 mmol/L [facility] AST [Catalytic activity/Vol] 23 U/L 10 - 35 U/L [facility] Bilirubin [Mass/Vol] 0.3 mg/dL 0.00 - 1.20 mg/dL [facility] Calcium [Mass/Vol] 9.3 mg/dL 8.6 - 10. 4 mg/dL [facility] Chloride [Moles/Vol] 98 mmol/L 98 - 10 7 mmol/L [facility] CO2 [Moles/Vol] 27 mmol/L 20 - 31 mmol/L [facility] Creatinine [Mass/Vol] 1.2 mg/dL High 0.50 - 0.90 mg/dL [facility] Est, Glom Filt Rate 56 Low - [facility] Comment on above: These results are not [...] [Mass/Vol] 93 mg/dL 74 - 99 mg/dL [facility] Potassium [Moles/Vol] 4.0 mmol/L 3.7 - 5.3 mmol/L [facility] Protein [Mass/Vol] 8.0 g/dL 6.6 - 8.7 g/dL [facility] Sodium [Moles/Vol] 138 mmol/L 136 - 145 mmol/L [facility] [employer] Urea nitrogen [Mass/Vol] 13 mg/dL 6 - 20 mg/dL [facility] [employer] Urea nitrogen/Creatinine [Mass ratio] 11 mg/mg 9 - 20 [facility] [employer] CT ABDOMEN PELVIS W IV CONTR Mazin [...] COMPARISON: 11/13/2019 HISTORY: ORDERING SYSTEM PROVIDED HISTORY: [facility] [[email or web address] pain TECHNOLOGIST PROVIDED HISTORY: [facility] [[email or web address]] pain Decision Support Exception - unselect if [...] Monique Bains MD 01/31/24 Final result Normal [facility] CT Abdomen and Pelvis W cont [...] COMPARISON: 11/13/2019 HISTORY: ORDERING SYSTEM PROVIDED HISTORY: [facility] [[email or web address] pain TECHNOLOGIST PROVIDED HISTORY: [facility] [[email or web address]] pain Decision Support Exception - unselect if [...] the pelvis. Osseous: Spondylosis. Old rib fractures. [facility] RIS CONSOLIDATED Monique Bains MD - [...] Old rib fractures. IMPRESSION: No acute process [facility] Radiology Study observation (narrative) [facility] CT Abdomen and Pelvis W cont rast IVOrdered By: Monique Bains on 01-31-2024 [facility] Work Phone: Comp Metabolic Profon 2023 Albumin [Mass/Vol] 4.3 g/dL Normal 3.5-5.2 [facility] Comment on above: Performed By: #### T ARTIE, CDP, CP, LIP ####[address] [place] [address] Lab Director: Marcelino Lopez MD Albumin/Glob Ratio 1.2 Normal 1.0-2.5 [facility] Comment on above: Performed By: #### T ARTIE, CDP, CP, LIP ####[address] [place] [address] Lab Director: Marcelino Lopez MD Alkaline Phos 100 U/L Normal 35-104 [facility] Comment on above: Performed By: #### T ROPI, CDP, CP, LIP ####[facility] [place] [address] Lab Director: Marcelino Lopez MD ALT [Catalytic activity/Vol] 9 U/L Low 10-35 [facility] Comment on above: Performed By: #### T ARTIE, CDP, CP, LIP ####[address] , [place] [id number] Lab Director: Marcelino Lopez MD Anion gap [Moles/Vol] 13 mmol/L Normal 9-16 [facility] Comment on above: Performed By: #### T ROPI, CDP, CP, LIP ####[facility] [place] , [place] [phone] Lab Director: Marcelino Lopez MD AST [Catalytic activity/Vol] 23 U/L Normal 10-35 [facility] Comment on above: Performed By: #### T ROPI, CDP, CP, LIP ####[facility] [place] , [place] [phone] lab Director: Marcelino Lopez MD Bilirubin [Mass/Vol] 0.3 mg/dL Normal 0.00-1.20 [facility] Comment on above: Performed By: #### T ROPI, CDP, CP, LIP ####[address] , [place] [address] lab Director: Marcelino Lopez MD BUN/CRE Ratio 11 Normal 9-20 [facility] Comment on above: Performed By: #### T ROPI, CDP, CP, LIP ####[address] , [place] [address] lab Director: Marcelino Lopez MD Calcium [Mass/Vol] 9.3 mg/dL Normal 8.6-10.4 [facility] Comment on above: Performed By: #### T ROPI, CDP, CP, LIP ####[facility] [place] , [place] [address] lab Director: Marcelino Lopez MD Chloride [Moles/Vol] 98 mmol/L Normal 98-107 [facility] Comment on above: Performed By: #### T ROPI, CDP, CP, LIP ####[facility] [place] , [place] [address] lab Director: Marcelino Lopez MD CO2 [Moles/Vol] 27 mmol/L Normal 20-[address] [facility] Comment on above: Performed By: #### T ROPI, CDP, CP, LIP ####[facility] [place] , [place] [address] Lab Director: Marcelino Lopez MD Creatinine [Mass/Vol] 1.2 mg/dL High 0.50-0.90 [facility] Comment on above: Performed By: #### T ROPI, CDP, CP, LIP ####[facility] [place] , [place] [id number] lab Director: Marcelino Lopez MD GFR/1.73 sq M.predicted among non-blacks MDRD (S/P/Bld) [Vol rate/Area] 56 mL/min/{1.73_m2} Low >60 [facility] Comment on above: Result Comment: These [...] By: #### T ROPI, CDP, CP, LIP ####[address] , [place] [id number] Lab Director: Marcelino Lopez MD Glucose [Mass/Vol] 93 mg/dL Normal 74-99 [facility] Comment on above: Performed By: #### T ROPI, CDP, CP, LIP ####[address] , [place] 1584883 lab Director: Marcelino Lopez MD Potassium [Moles/Vol] 4.0 mmol/L Normal 3.7-5.3 [facility] Comment on above: Performed By: #### T ROPI, CDP, CP, LIP ####[address] , [place] 9[address]83 lab Director: Marcelino Lopez MD Protein [Mass/Vol] 8.0 g/dL Normal 6.6-8.7 [facility] Comment on above: Performed By: #### T MANISH ALVA, CP, LIP ####[facility] [place], [place] 359[address]83 lab Director: Marcelino Lopez MD Sodium [Moles/Vol] 138 mmol/L Normal 136-145 [facility] Comment on above: Performed By: #### T MANISH ALVA, CP, LIP ####[facility] [place], [place] 144[address]83 lab Director: Marcelino Lopez MD Urea nitrogen [Mass/Vol] 13 mg/dL Normal 6-20 [facility] Comment on above: Performed By: #### T MANISH ALVA, CP, LIP ####[facility] [place], [place] 36[address] lab Director: Marcelino Lopez MD Lipaseon 01-31-2024 Lipase [Catalytic activity/Vol] 12 U/L Low 13 - 60 U/L [facility] Lipase [Catalytic activity/Vol] 12 U/L Low 13-60 [facility] Comment on above: Performed By: #### T ARTIE, MANISH, CP, LIP ####[address] [place], [place] [address]83 lab Director: Marcelino Lopez MD Microscopic Urinalysison Bacteria LM Ql (Urine sed) 3+ Abnormal None [facility] Casts LM.LPF (Urine sed) [#/Area] 2 TO 5 HYALINE /LPF [facility] Epithelial cells LM.HPF (Urine sed) [#/Area] 10 TO 20 [facility] Interpretation and review of laboratory results Abnormal [facility] RBC LM.HPF (Urine sed) [#/Area] 2 TO 5 [facility] WBC LM.HPF (Urine sed) [#/Area] 2 TO 5 [facility] No Panel Informationon 01-30 Interpretation and review of laboratory results Abnormal [facility] Troponinon 01-31-2024 Troponin I.cardiac High sensitivity method [Mass/Vol] ng/L 0 - 14 ng/L [facility] Comment on above: High Sensitivity Tro ponin values cannot be compared with other Troponin methodologies. Troponin, High Sens <6 Normal 0-14 [facility] Comment on above: Result Comment: High Sensitivity Troponin values cannot be compared with other Troponin methodologies. Performed By: #### T ROPI, CDP, CP, LIP ####[facility] , [place] [id number] Lab Director: Marcelino Lopez MD UA w/Reflex Cultureon 2023 Bilirubin, SemiQt,Ur Negative Normal NEG [facility] Comment on above: Performed By: #### U MICAO, UAX #### [facility] [address] [place], [place] 4092183 Production Stage Manager: Marcelino Lopez MD Blood, Urine TRACE Abnormal NEG [facility] Comment on above: Performed By: #### U MICAO, UAX #### [facility] [address] [place] [address] [place] [place], [place] 8487783 Production Stage Manager: Marcelino Lopez MD Clarity (U) Clear Normal CLEAR [facility] Comment on above: Performed By: #### U MICAO, UAX #### [facility] [address] [place], [place] 2572083 Production Stage Manager: Marcelino Lopez MD Color (U) Yellow Normal YEL [facility] Comment on above: Performed By: #### U MICAO, UAX #### [facility] [address] [place] [address] Production Stage Manager: Marcelino Lopez MD Glucose Ql (U) Negative Normal NEG [facility] Comment on above: Performed By: #### U MICAO, UAX #### [facility] [address] [place] [address] [place] [place], [place] 5451383 Production Stage Manager: Marcelino Lopez MD Ketones Ql (U) Negative Normal NEG [facility] Comment on above: Performed By: #### U MICAO, UAX #### [facility] [address] [place], [place] 7386083 Production Stage Manager: Marcelino Lopez MD Leukocyte esterase Test strip Ql (U) Negative Normal NEG [facility] Comment on above: Performed By: #### U MICAO, UAX #### [facility] [address] [place], [place] 9370183 Production Stage Manager: Marcelino Lopez MD Nitrite,Ur Positive Abnormal NEG [facility] Comment on above: Performed By: #### U MICAO, UAX #### [facility] [address] [place] [address] [place] [place], [place] 7748183 Production Stage Manager: Marcelino Lopez MD PH,Ur 5.5 Normal 5.0-9.0 [facility] Comment on above: Performed By: #### U MICAO, UAX #### [facility] [address] [place] [address] [place] [place], [place] 4781483 Production Stage Manager: Marcelino Lopez MD Protein Ql (U) Negative Normal NEG [facility] Comment on above: Performed By: #### U MICAO, UAX #### [facility] [address] [place] [address] [place] [place], [place] 7135083 Production Stage Manager: Marcelino Lopez MD Spec. [place],Ur >1.030 High 1.010-1.020 [facility] Comment on above: Performed By: #### U MICAO, UAX #### [facility] [address] [place] [address] [address] [place], [place] 6117083 Production Stage Manager: Marcelino Lopez MD Urobilinogen,Ur Normal Normal 0.0-1.[address] [facility] Comment on above: Performed By: #### U MICAO, UAX #### [facility] [address] [place] [address] Production Stage Manager: Marcelino Lopez MD Urinalysis with Reflex to Cu ltureon 01-31-2024 Bilirubin Ql (U) Negative NEGATIVE [facility] Clarity (U) Clear Clear [facility] Color (U) Yellow Yellow [facility] Glucose Test strip (U) [Mass/Vol] Negative NEGATIVE mg/dL [facility] Hemoglobin Auto test strip Ql (U) TRACE Abnormal NEGATIVE [facility] Interpretation and review of laboratory results Abnormal [facility] Ketones (U) [Mass/Vol] Negative NEGAT [place] mg/dL [facility] Leukocyte esterase Test strip Ql (U) Negative NEGATIVE [facility] Nitrite Ql (U) Positive Abnormal NEGATIVE [facility] pH (U) 5.5 [pH] 5.0 - 9.0 [facility] Protein (U) [Mass/Vol] Negative NEGAT [place] mg/dL [facility] Specific gravity (U) [Rel density] High 1.010 - 1.020 [facility] Urobilinogen Qn (U) Normal 0.0 - 1. 0 EU/dL [facility] Urinalysis,Microon 4 Bacteria 3+ Abnormal NONE [facility] Comment on above: Performed By: #### U MICAO, UAX #### [facility] [address] [place] [address] Production Stage Manager: Marcelino Lopez MD Casts 2 TO 5 Normal [facility] Comment on above: Result Comment: HYAL INE Performed By: #### U MICAO, UAX #### [facility] [address] [place] [address] Production Stage Manager: Marcelino Lopez MD Epithelial cells LM Ql (Urine sed) 10 TO 20 Normal 0-25 [facility] Comment on above: Performed By: #### U MICAO, UAX #### [facility] [address] [place] [address] Production Stage Manager: Marcelino Lopez MD Urine RBC's 2 TO 5 Normal 0-2 [facility] Comment on above: Performed By: #### U MICAO, UAX #### [facility] [address] [place], [place] 7479783 Production Stage Manager: Marcelino Lopez MD Urine WBC's 2 TO 5 Normal 0-5 [facility] Comment on above: Performed By: #### U MICAO, UAX #### [facility] [address] [place] [address] Production Stage Manager: Marcelino Lopez MD [facility] LISA Fitzgeraldjoseph 11-21-2023 [facility] BILATERAL EXAMINATION: SCREENING DIGITAL [...] to the patient regarding the results. [employer] recommends annual mammograms for women 40 years and older. Interpreted by: Erlin Sol MD Signed by: Erlin Sol MD 11/21/23 Final result Normal [facility] 07-28-2023 ALT [Catalytic activity/Vol] 5 U/L Normal 5-33 [facility] Comment on above: Performed By: #### B MP, ALT, AST #### [facility] [address] [place] [address] Production Stage Manager: Marcelino Lopez MD #### FERI #### [place] [address] [place], [place] 1408708 Production Stage Manager: Higinio Bullock MD Mazin 07-28-2023 AST [Catalytic activity/Vol] 11 U/L Normal <32 [facility] Comment on above: Performed By: #### B MP, ALT, AST #### [facility] [address] [place], [place] 077[address]83 Production Stage Manager: Marcelino Lopez MD #### FERI #### [address] [id number] Production Stage Manager: Higinio Bullock MD Basic Metabolic Profon 07-27 Anion gap [Moles/Vol] 11 mmol/L Normal 9-17 [facility] Comment on above: Performed By: #### B MP, ALT, AST #### [address] [place] [address] Production Stage Manager: Marcelino Lopez MD #### FERI #### [address] [address] Production Stage Manager: Higinio Bullock MD BUN/CRE Ratio 13 Normal 9-20 [facility] Comment on above: Performed By: #### B MP, ALT, AST #### [facility] [address] [place] [address] [address] [place], [place] 861[address] Production Stage Manager: Marcelino Lopez MD #### FERI #### [address] [address] Production Stage Manager: Higinio Bullock MD Calcium [Mass/Vol] 8.8 mg/dL Normal 8.6-10.4 [facility] Comment on above: Performed By: #### B MP, ALT, AST #### [address] [place], [place] 1467183 Production Stage Manager: Marcelino Lopez MD #### FERI #### [facility] [address] [place], [place] 8080308 Production Stage Manager: Higinio Bullock MD Chloride [Moles/Vol] 102 mmol/L Normal 98-107 [facility] Comment on above: Performed By: #### B MP, ALT, AST #### [facility] [address] [place], [place] 0236983 Production Stage Manager: Marcelino Lopez MD #### FERI #### [address] [phone] Production Stage Manager: Higinio Bullock MD CO2 [Moles/Vol] 24 mmol/L Normal 20-[address] [facility] Comment on above: Performed By: #### B MP, ALT, AST #### [facility] [address] [place], [place] 6005083 Production Stage Manager: Marcelino Lopez MD #### FERI #### [address] [address] Production Stage Manager: Higinio Bullock MD Creatinine [Mass/Vol] 0.7 mg/dL Normal 0.5-0.9 [facility] Comment on above: Performed By: #### B MP, ALT, AST #### [facility] [address] [place] [address] Production Stage Manager: Marcelino Lopez MD #### FERI #### [address] [address] Production Stage Manager: Higinio Bullock MD GFR/1.73 sq M.predicted among non-blacks MDRD (S/P/Bld) [Vol rate/Area] mL/min/{1.73_m2} Normal >60 [facility] Comment on above: Result Comment: These [...] By: #### B MP, ALT, AST #### [address] [place], [place] 8041383 Production Stage Manager: Marcelino Lopez MD #### FERI #### [address] [address]2312[address] Production Stage Manager: Higinio Bullock MD Glucose [Mass/Vol] 95 mg/dL Normal 70-99 [facility] Comment on above: Performed By: #### B MP, ALT, AST #### [address] [place] [phone] ( Production Stage Manager: Marcelino Lopez MD #### FERI #### [address] [address] Production Stage Manager: Higinio Bullock MD Potassium [Moles/Vol] 3.8 mmol/L Normal 3.7-5.3 [facility] Comment on above: Performed By: #### B MP, ALT, AST #### [address] [place], [place] 3632183 Production Stage Manager: Marcelino Lopez MD #### FERI #### [address] [address] Production Stage Manager: Higinio Bullock MD Sodium [Moles/Vol] 137 mmol/L Normal 135-144 [facility] Comment on above: Performed By: #### B MP, ALT, AST #### [address] [place], [place] 2597883 Production Stage Manager: Marcelino Lopez MD #### FERI #### [address] [address] Production Stage Manager: Higinio Bullock MD Urea nitrogen [Mass/Vol] 9 mg/dL Normal 6-20 [facility] Comment on above: Performed By: #### B MP, ALT, AST #### [facility] [address] [place] [address] Production Stage Manager: Marcelino Lopez MD #### MAR #### [facility] [address] [place], [place] 4588908 Production Stage Manager: Higinio Bullock MD CBC with Diffon 07-28-2023 Abs. Basophil 0.08 k/uL Normal 0.00-0.20 [facility] Comment on above: Performed By: #### C DP #### [address] [place] [address] Production Stage Manager: Marcelino Lopez MD Abs.Imm.Granulocyte 0.04 k/uL Normal 0.00-0.30 [facility] Comment on above: Performed By: #### C DP #### [address] [place] [address] Production Stage Manager: Marcelino Lopez MD Abs.Neutrophil (Seg) 4.48 k/uL Normal 1.50-8.10 [facility] Comment on above: Performed By: #### C DP #### [address] [place] [address] Production Stage Manager: Marcelino Lopez MD Basophils/100 WBC (Bld) 1 % Normal 0-2 [facility] Comment on above: Performed By: #### C DP #### [facility] [address] [place], [place] [address] Production Stage Manager: Marcelino Lopez MD Eosinophils (Bld) [#/Vol] 0.45 10*3/uL High 0.00-0.44 [facility] Comment on above: Performed By: #### C DP #### [address] [place] [id number] Production Stage Manager: Marcelino Lopez MD Eosinophils/100 WBC (Bld) 5 % High 1-4 [facility] Comment on above: Performed By: #### C DP #### [facility] [address] [place], [place] 1133283 Production Stage Manager: Marcelino Lopez MD Erythrocyte distribution width (RBC) [Ratio] 15.2 % High 11.8-14.4 [facility] Comment on above: Performed By: #### C DP #### [facility] [address] [place], [place] 0369783 Production Stage Manager: Marcelino Lopez MD Hematocrit (Bld) [Volume fraction] 35.2 % Low 36.3-47.1 [facility] Comment on above: Performed By: #### C DP #### [facility] [address] [place] [address] [address] [place], [place] 3559283 Production Stage Manager: Marcelino Lopez MD Hemoglobin (Bld) [Mass/Vol] 10.8 g/dL Low 11.9-15.1 [facility] Comment on above: Performed By: #### C DP #### [facility] [address] [place], [place] 5132683 Production Stage Manager: Marcelino Lopez MD Immature granulocytes/100 WBC (Bld) 1 % High 0 [facility] Comment on above: Performed By: #### C DP #### [facility] [address] [place] [address] [address], [place] [address] Production Stage Manager: Marcelino Lopez MD Lymphocytes (Bld) [#/Vol] 3.04 10*3/uL Normal 1.10-3.70 [facility] Comment on above: Performed By: #### C DP #### [facility] [address] [place], [place] 9571083 Production Stage Manager: Marcelino Lopez MD Lymphocytes/100 WBC (Bld) 35 % Normal 24-43 [facility] Comment on above: Performed By: #### C DP #### [facility] [address] [place], [place] 0859583 Production Stage Manager: Marcelino Lopez MD MCH (RBC) [Entitic mass] 24.3 pg Low 25.2-33.5 [facility] Comment on above: Performed By: #### C DP #### [facility] [address] [place] [address] [place] 1945083 Production Stage Manager: Marcelino Lopez MD MCHC (RBC) [Mass/Vol] 30.7 g/dL Normal 28.4-34.8 [facility] Comment on above: Performed By: #### C DP #### [address] [place], [place] 4444083 Production Stage Manager: Marcelino Lopez MD MCV (RBC) [Entitic vol] 79.3 fL Low 82.6-102.9 [facility] Comment on above: Performed By: #### C DP #### [address] [place], [place] 9980483 Production Stage Manager: Marcelino Lopez MD Monocytes (Bld) [#/Vol] 0.63 10*3/uL Normal 0.10-1.20 [facility] Comment on above: Performed By: #### C DP #### [address] [place], [place] 7491183 Production Stage Manager: Marcelino Lopez MD Monocytes/100 WBC (Bld) 7 % Normal 3-12 [facility] Comment on above: Performed By: #### C DP #### [facility] [address] [place] [address] [place], [place] 1859383 Production Stage Manager: Marcelino Lopez MD Neutrophil (Seg) 51 % Normal 36-65 [facility] Comment on above: Performed By: #### C DP #### [facility] [address] [place] [address] [place], [place] 3457583 Production Stage Manager: Marcelino Lopez MD NRBC Automated 0.0 per 100 WBC Normal 0.0 [facility] Comment on above: Performed By: #### C DP #### [facility] [address] [place], [place] [address] Production Stage Manager: Marcelino Lopez MD Platelet mean volume (Bld) [Entitic vol] 11.5 fL Normal 8.1-13.5 [facility] Comment on above: Performed By: #### C DP #### [facility] [address] [place], [facility]83 Production Stage Manager: Marcelino Lopez MD Platelets (Bld) [#/Vol] 375 10*3/uL Normal 138-453 [facility] Comment on above: Performed By: #### C DP #### [facility] [address] [place], [place] 8150483 Production Stage Manager: Marcelino Lopez MD RBC (Bld) [#/Vol] 4.44 10*6/uL Normal 3.95-5.11 [facility] Comment on above: Performed By: #### C DP #### [address] [place], [place] 9229083 Production Stage Manager: Marcelino Lopez MD WBC (Bld) [#/Vol] 8.7 10*3/uL Normal 3.5-11.3 [facility] Comment on above: Performed By: #### C DP #### [address] [place], [facility]83 Production Stage Manager: Marcelino Lopez MD Ferritinon 07-28-2023 Ferritin [Mass/Vol] 11 ng/mL Low 13-150 [facility] Comment on above: Result Comment: FERRITIN Reference Ranges: Adult Males 20 - 60 years: 30 - 400 ng/mL Adult females 17 - 60 years: 13 - 150 ng/mL Adults greater than 60 years: no established reference range Pediatrics: no established reference range Performed By: #### B MP, ALT, AST #### [facility] [address] [place] [address] Production Stage Manager: Marcelino Lopez MD #### FERI #### [facility] [employer] [address] [place] [address] Production Stage Manager: Higinio Bullock MD Lipid Profileon 07-28-2023 Cholesterol [Mass/Vol] 169 mg/dL Normal 0-199 [facility] Comment on above: Result Comment: Cholesterol Guidelines: <200 Desirable 200-240 Borderline >240 Undesirable Performed By: #### L IPR ####[facility] [id number] [place] [address] Lab Director: Higinio Bullock MD Cholesterol in HDL [Mass/Vol] 46 mg/dL Normal >40 [facility] Comment on above: Result Comment: HDL Guidelines: <40 Undesirable 40-59 Borderline >59 Desirable Performed By: #### L IPR ####[address] [address] Lab Director: Higinio Bullock MD Cholesterol in LDL [Mass/Vol] 90 mg/dL Normal 0-100 [facility] Comment on above: Result Comment: LDL Guidelines: <100 Desirable 100-129 Near to/above Desirable 130-159 Borderline >159 Undesirable Direct (measured) LDL and calculated LDL are not interchangeable tests. Performed By: #### L IPR ####[facility] [address] [place] [address] Lab Director: Higinio Bullock MD Cholesterol in VLDL [Mass/Vol] 33 mg/dL Normal [facility] Comment on above: Performed By: #### L IPR ####[facility] [address] [place] [address] Lab Director: Higinio Bullock MD Cholesterol.total/Chol esterol in HDL [Mass ratio] 4.0 {ratio} Normal [facility] Comment on above: Performed By: #### L IPR ####[facility] [address] [place] [address] Lab Director: Higinio Bullock MD Triglyceride [Mass/Vol] 166 mg/dL High <150 [facility] Comment on above: Result Comment: Triglyceride Guidelines: <150 Desirable 150-199 Borderline 200-499 High >499 Very high Based on AHA Guidelines for fasting triglyceride, February 2012. Performed By: #### L IPR ####[facility] [place] [address] Lab Director: Higinio Bullock MD Vitamin B12on 07-28-2023 Cobalamin (Vitamin B12) [Mass/Vol] 263 pg/mL Normal 232-1245 [facility] Comment on above: Performed By: #### B MP, ALT, AST #### [facility] [address] [place] [address] Production Stage Manager: Marcelino Lopez MD #### FERI #### [facility] [address] [place], [place] 9746308 Production Stage Manager: Higinio Bullock MD Cult,Urineon 07-26-2023 Cult,Urine Specimen [...] Tobramycin <=1 SUSCEPTIBLE Trimethoprim/Sulfa <=20 SUSCEPTIBLE Susceptible [facility] Comment on above: Performed By: #### U RC #### [facility] [address] [place] [address] Production Stage Manager: Higinio Bullock MD [facility] [address] [place] [address] Production Stage Manager: Marcelino Lopez MD CBC with Diffon 04-23-2023 Abs. Basophil 0.05 k/uL Normal 0.00-0.20 [facility] Comment on above: Performed By: #### C P, CDP, MG ####[address] , [place] [phone] [facility] Director: Marcelino Lopez MD Abs.Imm.Granulocyte 0.07 k/uL Normal 0.00-0.30 [facility] Comment on above: Performed By: #### C P, CDP, MG ####[address] , [place] [address] [facility] Director: Marcelino Lopez MD Abs.Neutrophil (Seg) 13.34 k/uL High 1.50-8.10 [facility] Comment on above: Performed By: #### C P, CDP, MG ####[address] [place], [place] [address])[id number] Director: Marcelino Lopez MD Basophils/100 WBC (Bld) 0 % Normal 0-2 [facility] Comment on above: Performed By: #### C P, CDP, MG ####[address] , [place] [address] lab Director: Marcelino Lopez MD Eosinophils (Bld) [#/Vol] 0.19 10*3/uL Normal 0.00-0.44 [facility] Comment on above: Performed By: #### C P, CDP, MG ####[address] , [place] [address])[phone] Director: Marcelino Lopez MD Eosinophils/100 WBC (Bld) 1 % Normal 1-4 [facility] Comment on above: Performed By: #### C P, CDP, MG ####[address] , [facility]83 Lab Director: Marcelino Lopez MD Erythrocyte distribution width (RBC) [Ratio] 15.3 % High 11.8-14.4 [facility] Comment on above: Performed By: #### C P, CDP, MG ####[address] , [place] [id number] Lab Director: Marcelino Lopez MD Hematocrit (Bld) [Volume fraction] 33.3 % Low 36.3-47.1 [facility] Comment on above: Performed By: #### C P, CDP, MG ####[address] , [place] [id number] Lab Director: Marcelino Lopez MD Hemoglobin (Bld) [Mass/Vol] 10.4 g/dL Low 11.9-15.1 [facility] Comment on above: Performed By: #### C P, CDP, MG ####[address] , [facility]83 lab Director: Marcelino Lopez MD Immature granulocytes/100 WBC (Bld) 1 % High 0 [facility] Comment on above: Performed By: #### C P, CDP, MG ####[address] , [facility]83 Lab Director: Marcelino Lopez MD Lymphocytes (Bld) [#/Vol] 1.02 10*3/uL Low 1.10-3.70 [facility] Comment on above: Performed By: #### C P, CDP, MG ####[address] , [facility]83 Lab Director: Marcelino Lopez MD Lymphocytes/100 WBC (Bld) 7 % Low 24-43 [facility] Comment on above: Performed By: #### C P, CDP, MG ####[address] , [place] [id number] Lab Director: Marcelino Lopez MD MCH (RBC) [Entitic mass] 25.7 pg Normal 25.2-33.5 [facility] Comment on above: Performed By: #### C P, CDP, MG ####[address] , [facility]83 Lab Director: Marcelino Lopez MD MCHC (RBC) [Mass/Vol] 31.2 g/dL Normal 28.4-34.8 [facility] Comment on above: Performed By: #### C P, CDP, MG ####[address] [place] [address] Lab Director: Marcelino Lopez MD MCV (RBC) [Entitic vol] 82.4 fL Low 82.6-102.9 [facility] Comment on above: Performed By: #### C P, CDP, MG ####[address] , [facility]83 lab Director: Marcelino Lopez MD Monocytes (Bld) [#/Vol] 0.81 10*3/uL Normal 0.10-1.20 [facility] Comment on above: Performed By: #### C P, CDP, MG ####[address] , [facility]83 Lab Director: Marcelino Lopez MD Monocytes/100 WBC (Bld) 5 % Normal 3-12 [facility] Comment on above: Performed By: #### C P, CDP, MG ####[address] , [facility]83 Lab Director: Marcelino Lopez MD Neutrophil (Seg) 86 % High 36-65 [facility] Comment on above: Performed By: #### C P, CDP, MG ####[address] , [facility]83 Lab Director: Marcelino Lopez MD NRBC Automated 0.0 per 100 WBC Normal 0.0 [facility] Comment on above: Performed By: #### C P, CDP, MG ####[address] , [place] [id number] Lab Director: Marcelino Lopez MD Platelet mean volume (Bld) [Entitic vol] 10.7 fL Normal 8.1-13.5 [facility] Comment on above: Performed By: #### C P, CDP, MG ####[address] [place] [address] Lab Director: Marcelino Lopez MD Platelets (Bld) [#/Vol] 331 10*3/uL Normal 138-453 [facility] Comment on above: Performed By: #### C P, CDP, MG ####[address] [place] [address] Lab Director: Marcelino Lopez MD RBC (Bld) [#/Vol] 4.04 10*6/uL Normal 3.95-5.11 [facility] Comment on above: Performed By: #### C P, CDP, MG ####[address] , [place] [id number] Lab Director: Marcelino Lopez MD WBC (Bld) [#/Vol] 15.5 10*3/uL High 3.5-11.3 [facility] Comment on above: Performed By: #### C P, CDP, MG ####[address] , [place] 8125483 Lab Director: Marcelino Lopez MD Comp Metabolic Profon 2022 Albumin [Mass/Vol] 3.9 g/dL Normal 3.5-5.2 [facility] Comment on above: Performed By: #### C P, CDP, MG ####[address] , [place] [id number] Lab Director: Marcelino Lopez MD Albumin/Glob Ratio 1.0 Normal 1.0-2.5 [facility] Comment on above: Performed By: #### C P, CDP, MG ####[address] [place] [address] Lab Director: Marcelino Lopez MD Alkaline Phos 97 U/L Normal 35-104 [facility] Comment on above: Performed By: #### C P, CDP, MG ####[address] [place] [address] Lab Director: Marcelino Lopez MD ALT [Catalytic activity/Vol] 7 U/L Normal 5-33 [facility] Comment on above: Performed By: #### C P, CDP, MG ####[address] , [place] [address] lab Director: Marcelino Lopez MD Anion gap [Moles/Vol] 10 mmol/L Normal 9-17 [facility] Comment on above: Performed By: #### C P, CDP, MG ####[address] , [place] [address] lab Director: Marcelino Lopez MD AST [Catalytic activity/Vol] 16 U/L Normal <32 [facility] Comment on above: Performed By: #### C P, CDP, MG ####[address] , [place] [id number] lab Director: Marcelino Lopez MD Bilirubin [Mass/Vol] 0.2 mg/dL Low 0.3-1.2 [facility] Comment on above: Performed By: #### C P, CDP, MG ####[address] , [place] [phone] lab Director: Marcelino Lopez MD BUN/CRE Ratio 17 Normal 9-20 [facility] Comment on above: Performed By: #### C P, CDP, MG ####[address] [place] [address] lab Director: Marcelino Lopez MD Calcium [Mass/Vol] 8.9 mg/dL Normal 8.6-10.4 [facility] Comment on above: Performed By: #### C P, CDP, MG ####[address] , [place] [address] lab Director: Marcelino Lopez MD Chloride [Moles/Vol] 103 mmol/L Normal 98-107 [facility] Comment on above: Performed By: #### C P, CDP, MG ####[address] , [place] [id number] lab Director: Marcelino Lopez MD CO2 [Moles/Vol] 22 mmol/L Normal 20-[address] [facility] Comment on above: Performed By: #### C P, CDP, MG ####[address] , [facility]83 lab Director: Marcelino Lopez MD Creatinine [Mass/Vol] 0.6 mg/dL Normal 0.5-0.9 [facility] Comment on above: Performed By: #### C P, CDP, MG ####[address] , [facility]83 lab Director: Marcelino Lopez MD GFR/1.73 sq M.predicted among non-blacks MDRD (S/P/Bld) [Vol rate/Area] mL/min/{1.73_m2} Normal >60 [facility] Comment on above: Result Comment: These [...] Performed By: #### C P, CDP, MG ####[address] [place] [address] lab Director: Marcelino Lopez MD Glucose [Mass/Vol] 100 mg/dL High 70-99 [facility] Comment on above: Performed By: #### C P, CDP, MG ####[address] , [place] [address] [facility] Director: Marcelino Lopez MD Potassium [Moles/Vol] 3.8 mmol/L Normal 3.7-5.3 [facility] Comment on above: Performed By: #### C P, CDP, MG ####[address] , [place] [address]83 [facility] Director: Marcelino Lopez MD Protein [Mass/Vol] 7.8 g/dL Normal 6.4-8.3 [facility] Comment on above: Performed By: #### C P, CDP, MG ####[address] , [place] 94[address]383 [facility] Director: Marcelino Lopez MD Sodium [Moles/Vol] 135 mmol/L Normal 135-144 [facility] Comment on above: Performed By: #### C P, CDP, MG ####[address] , [place] 8[address]83 [facility] Director: Marcelino Lopez MD Urea nitrogen [Mass/Vol] 10 mg/dL Normal 6-20 [facility] Comment on above: Performed By: #### C P, CDP, MG ####[address] , [place] [address] [facility] Director: Marcelino Lopez MD Magnesiumon 2 Magnesium [Mass/Vol] 1.9 mg/dL Normal 1.6-2.6 [facility] Comment on above: Performed By: #### B MP, ALT, AST #### [facility] [address] [place] [address] Production Stage Manager: Marcelino Lopez MD #### FERI #### [place] [id number] [place], [place] [id number] Production Stage Manager: Higinio Bullock MD Strep Group A, Rapidon 04-23 Strep A, Molecular Positive Abnormal NEG [facility] Comment on above: Performed By: #### R SAB ####[address] , [place] [id number] Lab Director: Marcelino Lopez MD Source .THROAT SWAB Normal [facility] Comment on above: Performed By: #### R SAB ####[address] , [place] [id number] Lab Director: Marcelino Lopez MD UA w/Reflex Cultureon 2022 Bilirubin, SemiQt,Ur Negative Normal NEG [facility] Comment on above: Performed By: #### U AX, UMICAO ####[address] [place] [address] Lab Director: Marcelino Lopez MD Blood, Urine 3+ Abnormal NEG [facility] Comment on above: Performed By: #### U AX, UMICAO ####[address] [place] [address] Lab Director: Marcelino Lopez MD Clarity (U) Clear Normal CLEAR [facility] Comment on above: Performed By: #### U AX, UMICAO ####[address] [place] [address] Lab Director: Marcelino Lopez MD Color (U) Yellow Normal YEL [facility] Comment on above: Performed By: #### U AX, UMICAO ####[address] [place] [address] Lab Director: Marcelino Lopez MD Glucose Ql (U) Negative Normal NEG [facility] Comment on above: Performed By: #### U AX, UMICAO ####[address] , [place] 137[address]83 Lab Director: Marcelino Lopez MD Ketones Ql (U) 1+ mg/dL Abnormal NEG [facility] Comment on above: Performed By: #### U AX UMICAO ####[address] [place] [address] Lab Director: Marcelino Lopez MD Leukocyte esterase Test strip Ql (U) Negative Normal NEG [facility] Comment on above: Performed By: #### U AX, UMICAO ####[address] [place] [address] Lab Director: Marcelino Lopez MD Nitrite,Ur Negative Normal NEG [facility] Comment on above: Performed By: #### U AX, UMICAO ####[address] [place] [address] Lab Director: Marcelino Lopez MD PH,Ur 6.0 Normal 5.0-9.0 [facility] Comment on above: Performed By: #### U AX, UMICAO ####[address] [place] [address] Lab Director: Marcelino Lopez MD Protein Ql (U) Negative Normal NEG [facility] Comment on above: Performed By: #### U AX, UMICAO ####[address] [place] [address] Lab Director: Marcelino Lopez MD Spec. [place],Ur 1.025 High 1.010-1.020 [facility] Comment on above: Performed By: #### U AX, UMICAO ####[address] [place] [address] Lab Director: Marcelino Lopez MD Urobilinogen,Ur Normal Normal 0.0-1.[address] [facility] Comment on above: Performed By: #### U AX, UMICAO ####[address] [place] [address] Lab Director: Marcelino Lopez MD Urinalysis,Microon 3 Bacteria TRACE Abnormal NONE [facility] Comment on above: Performed By: #### U AX, UMICAO ####[facility] , [place] [address] [facility] Director: Marcelino Lopez MD Epithelial cells LM Ql (Urine sed) 0 TO 2 Normal 0-25 [facility] Comment on above: Performed By: #### U AX, UMICAO ####[facility] , [place] [phone] lab Director: Marcelino Lopez MD Urine RBC's GREATER THAN 100 Normal 0-2 [facility] Comment on above: Performed By: #### U AX, UMICAO ####[address] , [place] 067[address]83 lab Director: Marcelino Lopez MD Urine WBC's 0 TO 2 Normal 0-5 [facility] Comment on above: Performed By: #### U AX, UMICAO ####[address] , [place] [address]83[address]83 lab Director: Marcelino Lopez MD XR ANKLE [...] Ashley Claros MD 04/16/23 Final result Normal [facility] XR FOOT RIGHT (MIN 3 VIEWS)o [...] Ashley Claros MD 04/16/23 Final result Normal [facility] Brain Natriuretic Peptideon 06-27-2022 Natriuretic peptide B (Bld) [Mass/Vol] pg/mL NINF - 300 pg/mL [facility] Comment on above: An age-independent cutoff point of 300 pg/ml has a 98% negative predictive value excluding acute heart failure. [facility] CBC with Auto Differentialon 06-27-2022 Absolute Eos # 0.37 [facility] Absolute Immature Granulocyte 0.05 [facility] Absolute Lymph # 2.77 [facility] Absolute [place] # 0.52 [facility] Basophils (Bld) [#/Vol] 0.07 10*3/uL [facility] Basophils/100 WBC (Bld) 1 % 0 - 2 % [facility] Eosinophils/100 WBC (Bld) 5 % High 1 - 4 % [facility] Hematocrit (Bld) [Volume fraction] 37.6 % 36.3 - 47.1 % [facility] Hemoglobin (Bld) [Mass/Vol] 12.2 g/dL 11.9 - 15.1 g/dL [facility] Immature granulocytes/100 WBC (Bld) 1 % High 0 [facility] Interpretation and review of laboratory results Abnormal [facility] Lymphocytes/100 WBC (Bld) 37 % 24 - 43 % [facility] MCH (RBC) [Entitic mass] 28.2 pg 25.2 - 33.5 pg [facility] MCHC (RBC) [Mass/Vol] 32.4 g/dL 28.4 - 34.8 g/dL [facility] MCV (RBC) [Entitic vol] 87.0 fL 82.6 - 102.9 fL [facility] Monocytes/100 WBC (Bld) 7 % 3 - 12 % [facility] NRBC Automated 0.0 0.0 per 100 WBC [facility] Platelet distribution width (Bld) [Ratio] 14.6 % High 11.8 - 14.4 % [facility] Platelet mean volume (Bld) [Entitic vol] 10.1 fL 8.1 - 13.5 fL [facility] Platelets (Bld) [#/Vol] 358 10*3/uL [facility] RBC (Bld) [#/Vol] 4.32 10*6/uL 3.95 - 5.1 1 m/uL [facility] Segmented neutrophils/100 WBC (Bld) 49 % 36 - 65 % [facility] Segs Absolute 3.71 [facility] WBC (Bld) [#/Vol] 7.5 10*3/uL [facility] CMPon 06-27-2022 Albumin [Mass/Vol] 3.8 g/dL 3.5 - 5.2 g/dL [facility] Albumin/Globulin [Mass ratio] 1.1 {ratio} 1.0 - 2.5 [facility] ALP [Catalytic activity/Vol] 91 U/L 35 - 104 U/L [facility] ALT [Catalytic activity/Vol] 9 U/L 5 - 33 U/L [facility] Anion gap [Moles/Vol] 9 mmol/L 9 - 17 mmol/L [facility] AST [Catalytic activity/Vol] 16 U/L NINF - 32 U/L [facility] Bilirubin [Mass/Vol] 0.2 mg/dL Low 0.3 - 1 .2 mg/dL [facility] Calcium [Mass/Vol] 8.7 mg/dL 8.6 - 10. 4 mg/dL [facility] Chloride [Moles/Vol] 105 mmol/L 98 - 10 7 mmol/L [facility] CO2 [Moles/Vol] 23 mmol/L 20 - 31 mmol/L [facility] Creatinine [Mass/Vol] 0.72 mg/dL 0.50 - 0.90 mg/dL [facility] GFR/1.73 sq M.predicted MDRD (S/P/Bld) [Vol rate/Area] - PINF [facility] Comment on above: These results are not [...] [Mass/Vol] 96 mg/dL 70 - 99 mg/dL [facility] Interpretation and review of laboratory results Abnormal [facility] Potassium [Moles/Vol] 4.1 mmol/L 3.7 - 5.3 mmol/L [facility] Protein [Mass/Vol] 7.4 g/dL 6.4 - 8.3 g/dL [facility] Sodium [Moles/Vol] 137 mmol/L 135 - 144 mmol/L [facility] Urea nitrogen [Mass/Vol] 11 mg/dL 6 - 20 mg/dL [facility] Urea nitrogen/Creatinine (Bld) [Mass ratio] 15 9 - 20 [facility] Magnesiumon 06-27-2022 Magnesium [Mass/Vol] 2.2 mg/dL 1.6 - 2 .6 mg/dL [facility] No Panel Informationon 06-27 [facility] Troponinon 06-27-2022 Troponin I.cardiac DL <= 0.01 ng/mL [Mass/Vol] ng/L 0 - 14 ng/L [facility] Comment on above: High Sensitivity Tro ponin values cannot be compared with other Troponin methodologies. XR CHEST PORTABLEon 06-27-19 Unchanged appearance of the chest without acute airspace disease identified. [facility] EXAMINATION: ONE XRAY VIEW OF THE CHEST 06/27/2022 1:43 pm COMPARISON: 06/28/2020 HISTORY: ORDERING SYSTEM PROVIDED HISTORY: sob TECHNOLOGIST PROVIDED HISTORY: sob FINDINGS: The cardiomediastinal silhouette is unchanged in appearance. There is no consolidation, pneumothorax, or evidence of edema. No effusion is appreciated. The osseous structures are unchanged in appearance. [facility] Justus Oliva MD - 06/27/2022 EXAMINATION: [...] the chest without acute airspace disease identified. [facility] [employer] Work Phone: Radiology Study observation (narrative) [facility] [employer] Work Phone: XR CHEST PORTABLEOrdered By: Justus Oliva on 06-27-2022 [facility] [employer] Work Phone: CBC Auto Differentialon 08- Absolute Eos # 0.25 [facility] [employer] Absolute Immature Granulocyte 0.[address] [facility] [employer] Absolute Lymph # 2.56 [facility] Absolute [place] # 0.52 [facility] Basophils (Bld) [#/Vol] 0.05 10*3/uL [facility] Basophils/100 WBC (Bld) 1 % 0 - 2 % [facility] Eosinophils/100 WBC (Bld) 3 % 1 - 4 % [facility] Hematocrit (Bld) [Volume fraction] 36.1 % Low 36.3 - 47.1 % [facility] Hemoglobin (Bld) [Mass/Vol] 11.0 g/dL Low 11.9 - 15.1 g/dL [facility] Immature granulocytes/100 WBC (Bld) 1 % High 0 [facility] Interpretation and review of laboratory results Abnormal [facility] Lymphocytes/100 WBC (Bld) 28 % 24 - 43 % [facility] MCH (RBC) [Entitic mass] 27.0 pg 25.2 - 33.5 pg [facility] MCHC (RBC) [Mass/Vol] 30.5 g/dL 28.4 - 34.8 g/dL [facility] MCV (RBC) [Entitic vol] 88.7 fL 82.6 - 102.9 fL [facility] Monocytes/100 WBC (Bld) 6 % 3 - 12 % [facility] NRBC Automated 0.0 0.0 per 100 WBC [facility] Platelet distribution width (Bld) [Ratio] 14.1 % 11.8 - 14.4 % [facility] Platelet mean volume (Bld) [Entitic vol] 11.0 fL 8.1 - 13.5 fL [facility] Platelets (Bld) [#/Vol] 305 10*3/uL [facility] RBC (Bld) [#/Vol] 4.07 10*6/uL 3.95 - 5.1 1 m/uL [facility] Segmented neutrophils/100 WBC (Bld) 61 % 36 - 65 % [facility] Segs Absolute 5.88 [facility] WBC (Bld) [#/Vol] 9.3 10*3/uL [facility] Ferritinon 12-29-2021 Ferritin [Mass/Vol] 23 ng/mL 13 - 150 ng/mL [facility] [employer] Vitamin B12on 12-29-2021 Cobalamin (Vitamin B12) [Mass/Vol] 168 pg/mL Low 232 - 1245 pg/mL [facility] [employer] Interpretation and review of laboratory results Abnormal [facility] [employer] XR HUMERUS LEFT (MIN 2 VIEWS )Ordered By: Ebony Bonds on 02-12-2021 No acute osseous abnormality. [employer] Phone: EXAMINATION: TWO XRAY VIEWS OF THE LEFT HUMERUS 02/12/2021 5:05 pm COMPARISON: June 08, 2016 HISTORY: ORDERING SYSTEM PROVIDED HISTORY: pain TECHNOLOGIST PROVIDED HISTORY: pain FINDINGS: There is no evidence of acute fracture. There is normal alignment. No acute joint abnormality. No focal osseous lesion. No focal soft tissue abnormality. [employer] Phone: Mian, Mhpn Incoming Radiant Results From [employer] - 02/12/2021 5:11 PM EDT EXAMINATION: TWO XRAY VIEWS OF THE LEFT HUMERUS 02/12/2021 5:05 pm COMPARISON: June 08, 2016 HISTORY: ORDERING SYSTEM PROVIDED HISTORY: pain TECHNOLOGIST PROVIDED HISTORY: pain FINDINGS: There is no evidence of acute fracture. There is normal alignment. No acute joint abnormality. No focal osseous lesion. No focal soft tissue abnormality. IMPRESSION: No acute osseous abnormality. [employer] Phone: [employer] Phone: CBC AUTO DIFFon 01-14-2021 BASO # 0.1 103/ul Normal 0.0-0.[address] [facility] Comment on above: Performed By: #### C BC #### [facility] [address] [place], [place] [address] Lan Turcios Basophils/100 WBC (Bld) 0.9 % Normal 0.2-2.0 [facility] Comment on above: Performed By: #### C BC #### [facility] [address] [place], [place] [address] Lan Karolina EO # 0.3 103/ul Normal 0.0-0.7 [facility] Comment on above: Performed By: #### C BC #### [facility] [address] [place], [place] [address] Lan Karolina Eosinophils/100 WBC (Bld) 4.3 % Normal 0.9-7.0 [facility] Comment on above: Performed By: #### C BC #### [facility] [address] [place] [address] Lan Karolina Erythrocyte distribution width (RBC) [Ratio] 12.7 % Normal 11.0-15.0 [facility] Comment on above: Performed By: #### C BC #### [facility] [address] [place] [address] Lan Karolina Hematocrit (Bld) [Volume fraction] 39.3 % Normal 36.0-48.0 [facility] Comment on above: Performed By: #### C BC #### [facility] [address] [place] [address] Lan Karolina Hemoglobin (Bld) [Mass/Vol] 12.6 g/dL Normal 12.0-16.0 [facility] Comment on above: Performed By: #### C BC #### [facility] [address] [place] [address] Lan Karolina IG # 0.03 10e3/ul Normal 0.00-0.[address] [facility] Comment on above: Performed By: #### C BC #### [facility] [address] [place] [address] Lan Karolina IG % 0.5 % Normal 0.0-0.[address] [facility] Comment on above: Performed By: #### C BC #### [facility] [address] [place], [place] [id number] Lan Karolina LYMPH # 2.1 103/ul Normal 1.2-3.8 [facility] Comment on above: Performed By: #### C BC #### [facility] [address] [place] [address] Lan Karolina Lymphocytes/100 WBC (Bld) 32.9 % Normal 20.5-60.0 [facility] Comment on above: Performed By: #### C BC #### [facility] [address] [place], [place] [address] Lanadrian Turcios MANUAL DIFF REQ NO Normal [facility] Comment on above: Performed By: #### C BC #### [facility] [address] [place], [place] [phone] Lanadrian Turcios MCH (RBC) [Entitic mass] 28.8 pg Normal 26.7-34.0 [facility] Comment on above: Performed By: #### C BC #### [facility] [address] [place] [address] Lanadrian Turcios MCHC (RBC) [Mass/Vol] 32.1 g/dL Normal 29.9-35.[address] [facility] Comment on above: Performed By: #### C BC #### [facility] [address] [place] [address] Lanadrian Mendesen MCV (RBC) [Entitic vol] 89.7 fL Normal 81.0-99.0 [facility] Comment on above: Performed By: #### C BC #### [facility] [address] [place], [place] [id number] Lan Karolina MONO # 0.6 103/ul Normal 0.3-0.8 [facility] Comment on above: Performed By: #### C BC #### [facility] [address] [place] [address] Lan Karolina Monocytes/100 WBC (Bld) 10.1 % Normal 1.7-12.0 [facility] Comment on above: Performed By: #### C BC #### [facility] [address] [place] [address] Lan Karolina NEUT # 3.2 103/ul Normal 1.4-6.[address] [facility] Comment on above: Performed By: #### C BC #### [facility] [address] [place], [place] [id number] Lan Karolina Neutrophils/100 WBC (Bld) 51.3 % Normal 43.0-75.[address] [facility] Comment on above: Performed By: #### C BC #### [facility] [address] [place], [place] [address] Lan Turcios Platelet mean volume (Bld) [Entitic vol] 11.3 fL Normal 9.5-13.5 [facility] Comment on above: Performed By: #### C BC #### [facility] [address] [place] [address] Lan Turcios PLT 316 103/ul Normal 150-[address] [facility] Comment on above: Performed By: #### C BC #### [facility] [address] [place] [address] Lan Turcios RBC 4.38 106/ul Normal 4.20-5.[address] [facility] Comment on above: Performed By: #### C BC #### [facility] [address] [place] [address] Lan Turcios WBC 6.3 103/ul Normal 4.0-11.[address] [facility] Comment on above: Performed By: #### C BC #### [facility] [address] [place], [place] [phone] Lan Turcios CT ABD/PELV W CONon 01-15-20 [...] PING OWENS Date: 2021-01-14 17:[address] [facility] ER URINE PROFILEon 1 Bilirubin Ql (U) Negative Normal NEGATIVE [facility] Comment on above: Performed By: #### E RUR #### [facility] [address] [place] [address] Lan Karolina Clarity (U) SL CLOUDY Abnormal CLEAR [facility] Comment on above: Performed By: #### E RUR #### [facility] [address] [place] [address] Lan Karolina Color (U) LT. YELLOW Normal YELLOW [facility] Comment on above: Performed By: #### E RUR #### [facility] [address] [place] [address] Lan Karolina ERUAHD A micrscopic examination will be performed if indicated. Normal [facility] Comment on above: Performed By: #### E RUR #### [facility] [address] [place] [address] Lan Karolina Glucose Ql (U) Negative Normal NEGATIVE [facility] [place] Comment on above: Performed By: #### E RUR #### [facility] [address] [place] [address] Lan Karolina Hemoglobin Ql (U) Negative Normal NEGATIVE [facility] Comment on above: Performed By: #### E RUR #### [facility] [address] [place], [place] [phone] Lna Karolina Ketones Ql (U) Negative Normal NEGATIVE [facility] Comment on above: Performed By: #### E RUR #### [facility] [address] [place], [place] [phone] Lan Karolina LEUKOCYTES Negative Normal NEGATIVE [facility] Comment on above: Performed By: #### E RUR #### [facility] [address] [place], [place] [phone] Lan Karolina Nitrite Ql (U) Negative Normal NEGATIVE [facility] Comment on above: Performed By: #### E RUR #### [facility] [address] [place], [place] [address] Lan Karolina pH (U) 5.0 [pH] Normal 5-9 [facility] Comment on above: Performed By: #### E RUR #### [facility] [address] [place] [address] Lan Karolina SPEC GRAVITY 1.020 Normal 1.005-<=1.[address] [place] [address] Comment on above: Performed By: #### E RUR #### [facility] [address] [place], [place] [address] Lan Karolina UA PROTEIN Negative Normal NEGATIVE/ TRACE [facility] Comment on above: Performed By: #### E RUR #### [facility] [address] [place], [place] [phone] Lan Karolina UR MICRO IND NOT INDICATED Normal [facility] Comment on above: Performed By: #### E RUR #### [facility] [address] [place] [address] Lan Karolina Urobilinogen Qn (U) 0.2 {Marques'U}/dL Normal 0.2 - 1. 0 [facility] Comment on above: Performed By: #### E RUR #### [facility] [address] [place], [place] [address] Lan Karolina LACTATE/LACTIC ACIDon 2020 Lactate [Moles/Vol] 0.9 mmol/L Normal 0.7-2.0 [facility] Comment on above: Performed By: #### L ACT #### [facility] [address] [place] [address] Lanadrian Turcios LIPASEon 01-14-2021 Lipase [Catalytic activity/Vol] 42.0 U/L Normal 23.0-300.0 [facility] Comment on above: Performed By: #### C MP, LIPA #### [facility] [address] [place] [address] Lan Karolina PREG HCG QUALon 01-14-2021 , QUAL Negative Normal NEGATIVE [facility] Comment on above: Performed By: #### P REG #### [facility] [address] [place], [place] [address] Lanadrian Turcios PROF 14(COMP METB)on 021 Albumin [Mass/Vol] 3.7 g/dL Normal 3.5-5.0 [facility] Comment on above: Performed By: #### C PATRICIA, LIPA #### [facility] [address] [place], [place] [address] Lan Karolina Albumin/Globulin [Mass ratio] 0.8 {ratio} Normal [facility] Comment on above: Performed By: #### C PATRICIA, LIPA #### [facility] [address] [place], [place] [address] Lan Karolina ALP [Catalytic activity/Vol] 84 U/L Normal 38-126 [facility] Comment on above: Performed By: #### C MP, LIPA #### [facility] [address] [place], [place] [address] Lan Karolina ALT [Catalytic activity/Vol] 22 U/L Normal 9-52 [facility] Comment on above: Performed By: #### C MP, LIPA #### [facility] [address] [place], [place] [address] Lan Karolina Anion gap [Moles/Vol] 14.3 mmol/L Normal [facility] Comment on above: Performed By: #### C MP, LIPA #### [facility] [address] [place], [place] [address] Lan Karolina AST [Catalytic activity/Vol] 17 U/L Normal 14-36 [facility] Comment on above: Performed By: #### C MP, LIPA #### [facility] [address] [place] [address] Lan Karolina Bilirubin [Mass/Vol] 0.3 mg/dL Normal 0.2-1.[address] [facility] Comment on above: Performed By: #### C MP, LIPA #### [facility] [address] [place] [address] Lan Karolina Calcium [Mass/Vol] 9.8 mg/dL Normal 8.4-10.2 [facility] Comment on above: Performed By: #### C MP, LIPA #### [facility] [address] [place] [address] Lan Karolina Chloride [Moles/Vol] 102 mmol/L Normal 98-107 [facility] Comment on above: Performed By: #### C MP, LIPA #### [facility] [address] [place] [address] Lan Karolina CO2 [Moles/Vol] 27.7 mmol/L Normal 22.0-30.0 [facility] Comment on above: Performed By: #### C MP, LIPA #### [facility] [address] [place] [address] Lan Karolina Creatinine [Mass/Vol] 0.70 mg/dL Normal 0.52-1.04 [facility] Comment on above: Performed By: #### C MP, LIPA #### [facility] [address] [place] [address] Lan Karolina EGFR-AF COLOMBIAN >60 Normal >=60 [facility] Comment on above: Performed By: #### C MP, LIPA #### [facility] [address] [place] [address] Lan Karolina EGFR-NON AF COLOMBIAN >60 Normal >=60 [facility] Comment on above: Performed By: #### C MP, LIPA #### [facility] [address] [place] [address] Lan Karolina Globulin (S) [Mass/Vol] 4.4 g/dL Normal [facility] Comment on above: Performed By: #### C MP, LIPA #### [facility] [address] [place] [id number] Lan Karolina Glucose [Mass/Vol] 108 mg/dL Critically high 74-106 [facility] Comment on above: Performed By: #### C MP, LIPA #### [facility] [address] [place] [address] Lan Karolina Potassium [Moles/Vol] 4.0 mmol/L Normal 3.4-5.0 [facility] Comment on above: Performed By: #### C MP, LIPA #### [facility] [address] [place] [id number] Lan Karolina Protein [Mass/Vol] 8.1 g/dL Normal 6.1-8.2 [facility] Comment on above: Performed By: #### C PATRICIA, LIPA #### [facility] [address] [place] [address] Lan Karolina Sodium [Moles/Vol] 140 mmol/L Normal 137-145 [facility] Comment on above: Performed By: #### C PATRICIA, LIPA #### [facility] [address] [place] [address] Lan Karolina Urea nitrogen [Mass/Vol] 12.0 mg/dL Normal 7.0-17.0 [facility] Comment on above: Performed By: #### C MP, LIPA #### [facility] [address] [place] [address] Lan Karolina Urea nitrogen/Creatinine [Mass ratio] 17.1 mg/mg Normal [facility] Comment on above: Performed By: #### C MP, LIPA #### [facility] [address] [place], [place] [address] Lan Karolina PROTIMEon 01-14-2021 INR Coag (PPP) [Relative time] 0.96 {INR} Normal [facility] Comment on above: Performed By: #### P TT, PT #### [facility] [address] [place], [place] [address] Lan Karolina INR GUIDELINES SEE BELOW Normal [facility] [place] Comment on above: Result Comment: BRANT RED INR: 2.0 - 3.0 CONDITIONS NOT LISTED BELOW 2.5 - 3.5 FOR PROSTHETIC HEART VALVE REPLACEMENT 2.5 - 3.5 RECURRENT THROMBOSIS Performed By: #### P TT, PT #### [facility] [address] [place], [place] [address] Lan Turcios PT Coag (PPP) [Time] 10.4 s Normal 9.0-11.6 [facility] Comment on above: Performed By: #### P TT, PT #### [facility] [address] [place], [place] [address] Lan Turcios PTTon 01-14-2021 aPTT Coag (Bld) [Time] 26.8 s Normal 22.3-36.[address] [facility] Comment on above: Performed By: #### P TT, PT #### [facility] [address] [place], [place] [address] aLn Turcios Basic Metabolic PanelOrdered By: Maynor Rivera on 11-25-2020 Anion gap [Moles/Vol] 12 mmol/L 9 - 17 mmol/L [employer] Phone: Calcium [Mass/Vol] 7.6 mg/dL Low 8.6 - 10. 4 mg/dL [employer] Phone: Chloride [Moles/Vol] 104 mmol/L 98 - 10 7 mmol/L [employer] Phone: CO2 [Moles/Vol] 20 mmol/L 20 - 31 mmol/L [employer] Phone: Creatinine [Mass/Vol] 0.55 mg/dL 0.50 - 0.90 mg/dL [employer] Phone: GFR >60 >60 mL/min [place] Phone: GFR Non- >60 >60 mL/min [employer] Phone: Glucose [Mass/Vol] 127 mg/dL High 70 - 99 mg/dL [employer] Phone: Interpretation and review of laboratory results Abnormal [employer] Phone: Potassium [Moles/Vol] 4.1 mmol/L 3.7 - 5.3 mmol/L [employer] Work Phone: Sodium [Moles/Vol] 136 mmol/L 135 - 144 mmol/L [employer] Phone: Urea nitrogen (BldV) [Mass/Vol] 12 mg/dL 6 - 20 mg/dL [employer] Work Phone: Urea nitrogen/Creatinine (Bld) [Mass ratio] 22 High [employer] Phone: [employer] Phone: CBC Auto DifferentialOrdered By: Maynor Rivera on 11-25-2020 Absolute Eos # 0.28 [employer] [facility] Work Phone: Absolute Immature Granulocyte 0.03 [employer] Work Phone: Absolute Lymph # 2.39 [employer] Work Phone: Absolute [place] # 0.67 [employer] Work Phone: Basophils (Bld) [#/Vol] 0.07 10*3/uL [employer] Work Phone: Basophils/100 WBC (Bld) 1 % 0 - 2 % [employer] Work Phone: Differential Type NOT REPORTED [employer] Phone: Eosinophils/100 WBC (Bld) 4 % 1 - 4 % [employer] Work Phone: Hematocrit (Bld) [Volume fraction] 38.3 % 36.3 - 47.1 % [employer] Phone: Hemoglobin.gastrointes tinal spec 1 Ql (Stl) 12.0 g/dL 11.9 - 15.1 g/dL [employer] Phone: Immature granulocytes/100 WBC (Bld) 1 % High 0 [employer] Phone: Interpretation and review of laboratory results Abnormal [employer] Phone: Lymphocytes/100 WBC (Bld) 37 % 24 - 43 % [employer] Phone: MCH (RBC) [Entitic mass] 29.8 pg 25.2 - 33.5 pg [employer] Phone: MCHC (RBC) [Mass/Vol] 31.3 g/dL 28.4 - 34.8 g/dL [employer] Phone: MCV (RBC) [Entitic vol] 95.0 fL 82.6 - 102.9 fL [employer] Phone: Monocytes/100 WBC (Bld) 11 % 3 - 12 % [employer] Phone: NRBC Automated 0.0 0.0 per 100 WBC [employer] Phone: Platelet distribution width (Bld) [Ratio] 13.5 % 11.8 - 14.4 % [employer] Phone: Platelet Estimate NOT REPORTED [employer] Phone: Platelet mean volume (Bld) [Entitic vol] 10.5 fL 8.1 - 13.5 fL [employer] Phone: Platelets (Bld) [#/Vol] 314 10*3/uL [employer] Phone: RBC (Bld) [#/Vol] 4.03 10*6/uL 3.95 - 5.1 1 m/uL [employer] Phone: RBC (Bld) [#/Vol] NOT REPORTED [employer] Phone: Segmented neutrophils/100 WBC (Bld) 46 % 36 - 65 % [employer] Phone: Segs Absolute 2.96 [employer] Work Phone: WBC (Bld) [#/Vol] 6.4 10*3/uL [employer] Phone: WBC (Bld) [#/Vol] NOT REPORTED [employer] Phone: [employer] Phone: Laboratory - Chemistry and C hemistry - challengeOrdered By: Maynor Rivera on 11-25-2020 GFR/1.73 sq M.predicted MDRD (S/P/Bld) [Vol rate/Area] [employer] Phone: Comment on above: Average GFR for 40-4 9 years old: 99 mL/min/1.73sq m Chronic Kidney Disease: <60 mL/min/1.73sq m Kidney failure: <15 mL/min/1.73sq m eGFR calculated using average adult body mass. Additional eGFR calculator available at: http://www.Nue[employer]olution/multiple_crcl_2012.htm Stage 1: Some kidney damage normal GFR Stage 2: Mild kidney damage GFR 60-89 Stage 3: Moderate kidney damage GFR 30-59 Stage 4: Severe kidney damage GFR 15-29 Stage 5: Severe kidney damage GFR <15 ESRD - chronic treatment by dialysis or transplant PTH, IntactOrdered By: Maynor Rivera on 11-25-2020 Interpretation and review of laboratory results Abnormal [employer] Phone: Pth Intact 105.3 pg/mL High 15.0 - 65.0 pg/mL [employer] Phone: Comment on above: SAMPLES FROM PATIENT S ROUTINELY RECEIVING HIGH DOSE BIOTIN THERAPY MAY SHOW FALSELY DEPRESSED RESULTS. ADDITIONAL INFORMATION MAY BE REQUIRED FOR DIAGNOSIS. [employer] Phone: TSH With Reflex [id number] B y: Maynor Rivera on 11-25-2020 TSH Qn 2.04 m[IU]/L [employer] Phone: [employer] Phone: Vitamin B12 & FolateOrdered By: Maynor Rivera on 11-25-2020 Cobalamin (Vitamin B12) [Mass/Vol] 248 pg/mL 232 - 1245 pg/mL [employer] Phone: Folate 9.2 ng/mL >4.8 [employer] Phone: [employer] Phone: Vitamin D 25 HydroxyOrdered By: Maynor Rivera on 11-25-2020 Interpretation and review of laboratory results Abnormal [employer] Phone: Vit D, 25-Hydroxy 6.3 ng/mL Low 30.0 - 100 .0 ng/mL [employer] Phone: Comment on above: Reference Range: Vitamin D status Range Deficiency <20 ng/mL Mild Deficiency 20-30 ng/mL Sufficiency 30-100 ng/mL Toxicity >100 ng/mL [employer] Phone: Otheron 06-28-2020 EXAMINATION: THREE XRAY VIEWS [...] right-sided rib fracture deformity evident. Prior cholecystectomy. [employer] Phone: Mian, Mhpn Incoming Radiant Results From [employer] - 06/28/2020 2:42 PM EST EXAMINATION: THREE [...] acute displaced right-sided rib fracture deformity evident. [employer] Work Phone: Left shoulder: No acute fracture or dislocation. Left hand: No acute fracture or dislocation. Right knee: No acute fracture or dislocation. Pelvis: No acute osseous abnormality. Chest/right-sided ribs: 1. No acute focal airspace consolidation. 2. No acute displaced right-sided rib fracture deformity evident. [employer] Work Phone: CBC Auto Differentialon Basophils (Bld) [#/Vol] 0.07 10*3/uL [place] Basophils/100 WBC (Bld) 1 % 0 - 2 % [place] Differential Type NOT REPORTED [place] Eosinophils (Bld) [#/Vol] 0.28 10*3/uL [place] Eosinophils/100 WBC (Bld) 4 % 1 - 4 % [place] Erythrocyte distribution width (RBC) [Ratio] 13.9 % 11.8 - 14.4 % [place] Hematocrit (Bld) [Volume fraction] 40.5 % 36.3 - 47.1 % [place] Hemoglobin (Bld) [Mass/Vol] 12.9 g/dL 11.9 - 15.1 g/dL [place] Immature granulocytes (Bld) [#/Vol] 0.04 10*3/uL [place] Immature granulocytes (Bld) [#/Vol] 1 % High 0 [place] Interpretation and review of laboratory results Abnormal [place] Lymphocytes (Bld) [#/Vol] 3.14 10*3/uL [place] Lymphocytes/100 WBC (Bld) 39 % 24 - 43 % [place] MCH (RBC) [Entitic mass] 29.1 pg 25.2 - 33.5 pg [place] MCHC (RBC) [Mass/Vol] 31.9 g/dL 28.4 - 34.8 g/dL [place] MCV (RBC) [Entitic vol] 91.4 fL 82.6 - 102.9 fL [place] Monocytes (Bld) [#/Vol] 0.58 10*3/uL [place] Monocytes/100 WBC (Bld) 7 % 3 - 12 % [place] Platelet mean volume (Bld) [Entitic vol] 10.3 fL 8.1 - 13.5 fL [place] Platelets (Bld) [#/Vol] 365 10*3/uL [place] Platelets (Bld) [#/Vol] NOT REPORTED [place] RBC (Bld) [#/Vol] 4.43 10*6/uL 3.95 - 5.1 1 m/uL [place] RBC morphology finding Nom (Bld) NOT REPORTED [place] Segmented neutrophils/100 WBC (Bld) 48 % 36 - 65 % [place] Segs Absolute 3.98 [place] WBC (Bld) [#/Vol] 0.0 10*3/uL 0.0 per 10 0 WBC [place] WBC (Bld) [#/Vol] 8.1 10*3/uL [place] WBC Morphology NOT REPORTED [place] Ferritinon 05-22-2020 Ferritin [Mass/Vol] 157 ug/L High 13 - 150 ug/L [place] Interpretation and review of laboratory results Abnormal [place] XR CHEST PORTABLEon 04-04-20 No acute cardiopulmonary abnormality. [place] EXAMINATION: ONE XRAY VIEW OF THE CHEST 04/04/2020 9:31 pm COMPARISON: 06/23/2019 HISTORY: ORDERING SYSTEM PROVIDED HISTORY: cough TECHNOLOGIST PROVIDED HISTORY: cough FINDINGS: The lungs are clear. The cardiac and mediastinal contours are normal. There is no pleural effusion or pneumothorax. No acute osseous abnormality is identified. [place] Mian, Mhpn Incoming Radiant Results From [facility] - 04/04/2020 9:46 PM EST EXAMINATION: ONE XRAY VIEW OF THE CHEST 04/04/2020 9:31 pm COMPARISON: 06/23/2019 HISTORY: ORDERING SYSTEM PROVIDED HISTORY: cough TECHNOLOGIST PROVIDED HISTORY: cough FINDINGS: The lungs are clear. The cardiac and mediastinal contours are normal. There is no pleural effusion or pneumothorax. No acute osseous abnormality is identified. IMPRESSION: No acute cardiopulmonary abnormality. [place] Basic Metabolic Panelon Anion gap [Moles/Vol] 13 mmol/L 9 - 17 mmol/L [place] Bun/Cre Ratio 20 [place] Calcium [Mass/Vol] 9.3 mg/dL 8.6 - 10. 4 mg/dL [place] Chloride [Moles/Vol] 103 mmol/L 98 - 10 7 mmol/L [place] CO2 [Moles/Vol] 21 mmol/L 20 - 31 mmol/L [place] Creatinine [Mass/Vol] 0.59 mg/dL 0.5 - 0.9 mg/dL [place] GFR >60 >60 mL/min [place] GFR Non- >60 >60 mL/min [place] Glucose [Mass/Vol] 105 mg/dL High 70 - 99 mg/dL [place] Interpretation and review of laboratory results Abnormal [place] Potassium [Moles/Vol] 4.0 mmol/L 3.7 - 5.3 mmol/L [place] Sodium [Moles/Vol] 137 mmol/L 135 - 144 mmol/L [place] Urea nitrogen [Mass/Vol] 12 mg/dL 6 - 20 mg/dL [place] CBC Auto Differentialon Basophils (Bld) [#/Vol] 0.07 10*3/uL [place] Basophils/100 WBC (Bld) 1 % 0 - 2 % [place] Differential Type NOT REPORTED [place] Eosinophils (Bld) [#/Vol] 0.35 10*3/uL [place] Eosinophils/100 WBC (Bld) 4 % 1 - 4 % [place] Erythrocyte distribution width (RBC) [Ratio] 13.7 % 11.8 - 14.4 % [place] Hematocrit (Bld) [Volume fraction] 42.7 % 36.3 - 47.1 % [place] Hemoglobin (Bld) [Mass/Vol] 13.8 g/dL 11.9 - 15.1 g/dL [place] Immature granulocytes (Bld) [#/Vol] 10*3/uL [place] Immature granulocytes (Bld) [#/Vol] 0 % 0 [place] Lymphocytes (Bld) [#/Vol] 2.35 10*3/uL [place] Lymphocytes/100 WBC (Bld) 27 % 24 - 43 % [place] MCH (RBC) [Entitic mass] 28.9 pg 25.2 - 33.5 pg [place] MCHC (RBC) [Mass/Vol] 32.3 g/dL 28.4 - 34.8 g/dL [place] MCV (RBC) [Entitic vol] 89.3 fL 82.6 - 102.9 fL [place] Monocytes (Bld) [#/Vol] 0.49 10*3/uL [place] Monocytes/100 WBC (Bld) 6 % 3 - 12 % [place] Platelet mean volume (Bld) [Entitic vol] 10.8 fL 8.1 - 13.5 fL [place] Platelets (Bld) [#/Vol] NOT REPORTED [place] Platelets (Bld) [#/Vol] 348 10*3/uL [place] RBC (Bld) [#/Vol] 4.78 10*6/uL 3.95 - 5.1 1 m/uL [place] RBC morphology finding Nom (Bld) NOT REPORTED [place] Segmented neutrophils/100 WBC (Bld) 62 % 36 - 65 % [place] Segs Absolute 5.35 [place] WBC (Bld) [#/Vol] 0.0 10*3/uL 0.0 per 10 0 WBC [place] WBC (Bld) [#/Vol] 8.6 10*3/uL [facility] [place] WBC Morphology NOT REPORTED [facility] W IV CONTR [place] 11-13-2019 Mian, Mhpn Incoming Radiant Results From [employer] - 11/13/2019 9:48 AM EDT EXAMINATION: CT [...] evidence for urinary obstruction. RECOMMENDATIONS: Insert apart [facility] CT OF THE ABDOMEN AND PELVIS [...] No lymphadenopathy within the abdomen or pelvis. [place] No evidence for acute intra-abdominal or intrapelvic pathology. No bowel obstruction or inflammation. No free intraperitoneal air or fluid. No evidence for urinary obstruction. RECOMMENDATIONS: Insert apart [place] Lactate, Sepsison 11-13-2019 Lactic Acid, Sepsis 0.8 mmol/L 0.5 - 1. 9 mmol/L [place] Lactic Acid, Sepsis, Whole Blood NOT REPORTED 0.5 - 1.9 mmol/L [place] Lipaseon 11-13-2019 Lipase [Catalytic activity/Vol] 15 U/L 13 - 60 U/L [place] Metabolic Panelon 11-13-2019 GFR/1.73 sq M predicted among non-blacks MDRD (S/P/Bld) [Vol rate/Area] [place] Comment on above: Average GFR for 40-4 9 years old: 99 mL/min/1.73sq m Chronic Kidney Disease: <60 mL/min/1.73sq m Kidney failure: <15 mL/min/1.73sq m eGFR calculated using average adult body mass. Additional eGFR calculator available at: http://www.SoleTrader.com.com/multiple_crcl_2012.htm Stage 1: Some kidney damage normal GFR Stage 2: Mild kidney damage GFR 60-89 Stage 3: Moderate kidney damage GFR 30-59 Stage 4: Severe kidney damage GFR 15-29 Stage 5: Severe kidney damage GFR <15 ESRD - chronic treatment by dialysis or transplant , Urineon 0 Beta HCG ( test) Ql (U) Negative NEGATIVE [place] Comment on above: Specimens with hCG l evels near the threshold of the test (25 mIU/mL) may give a negative or indeterminate result. In such cases, another test should be performed with a new specimen in 48-72 hours. If early is suspected clinically in this setting, correlation with quantitative serum b-hCG level is suggested. [facility] [employer] has confirmed the use of plasma for this test. This has not been cleared or approved by the U.S. Food and Drug Administration. The FDA has determined that such clearance is not necessary. Urinalysis with microscopico n 11-03-2019 Amorphous, UA NOT REPORTED None [place] Bacteria, UA 1+ Abnormal None [place] Bilirubin Urine Negative NEGATIVE [place] Casts UA NOT REPORTED /LPF [place] Color, UA YELLOW YELLOW [place] Crystals, UA NOT REPORTED None /HPF [place] Epithelial Cells UA 5 TO 10 [place] Glucose, Ur Negative NEGATIVE [place] Interpretation and review of laboratory results Abnormal [place] Ketones Ql (U) Negative NEGATIVE [place] Leukocyte esterase Test strip Ql (U) Negative NEGATIVE [place] Mucus, UA TRACE Abnormal None [place] Nitrite, Urine Negative NEGATIVE [place] Other Observations UA NOT REPORTED NOT REQ. [place] pH, UA 6.0 [place] Protein (U) [Mass/Vol] Negative NEGATIVE [place] RBC (U) [#/Vol] None [place] Renal Epithelial, UA NOT REPORTED 0 /HPF [place] Specific [place], UA 1.020 [place] Trichomonas, UA NOT REPORTED None Ana Maria Byrd [facility] [place] Turbidity UA SLIGHTLY CLOUDY Abnormal CLEAR [facility] [place], [place] Urinalysis Comments NOT REPORTED [place], [place] Urine Hgb Negative NEGATIVE [place], [place] Urobilinogen, Urine Normal Normal [place], [place] WBC, UA 2 TO 5 [place] Yeast, UA NOT REPORTED None [facility] [place] XR LUMBAR SPINE (2-3 VIEWS)o n 11-03-2019 1. No radiographic evidence of acute lumbar spine trauma. 2. Moderate L5/S1 spondylosis. [place], [place] Mian, Mhpn Incoming Radiant Results From [facility] - 11/03/2019 1:34 AM EDT EXAMINATION: THREE [...] lumbar spine trauma. 2. Moderate L5/S1 spondylosis. [place] EXAMINATION: THREE XRAY VIEWS OF THE [...] normal limits. Paravertebral soft tissues are unremarkable. [place] B12/Folate Panelon 0 Cobalamin (Vitamin B12) [Mass/Vol] 215 pg/mL Low 232-1245 [facility] Comment on above: Performed By: #### B 12MAR LEOS, VD25 #### [facility] [address] [place] [id number] Production Stage Manager: Higinio Bullock MD Folic Acid 12.7 ng/mL Normal >4.8 [facility] Comment on above: Performed By: #### Giovanna 12FOL, FERI, VD25 #### [facility] [address] [place] [address] [id number] Production Stage Manager: Higinio Bullock MD Ferritinon 07-19-2019 Ferritin [Mass/Vol] 14 ug/L Normal 13-150 [facility] Comment on above: Performed By: #### Giovanna 12FOJosias FERI, VD25 #### [facility] [address] [place] [address] [id number] Production Stage Manager: Higinio Bullock MD Vitamin D 25 OHon 07-19-2019 Vitamin D 25 OH 6.5 ng/mL Low 30.0-100.0 [facility] Comment on above: Result Comment: Reference Range: Vitamin D status Range Deficiency <20 ng/mL Mild Deficiency 20-30 ng/mL Sufficiency 30-100 ng/mL Toxicity >100 ng/mL Performed By: #### Giovanna 12FOJosias FERI, VD25 #### [facility] [employer] [address] [place] [address] [id number] Production Stage Manager: Higinio Bullock MD Ferritinon 07-18-2019 Ferritin [Mass/Vol] 14 ug/L 13 - 150 ug/L [place] Vitamin B12 & Folateon 07-17 Cobalamin (Vitamin B12) [Mass/Vol] 215 pg/mL Low 232 - 1245 pg/mL [place] Folate 12.7 ng/mL >4.8 [place] Interpretation and review of laboratory results Abnormal [place] Vitamin D 25 Hydroxyon 07-17 Interpretation and review of laboratory results Abnormal [place] Vit D, 25-Hydroxy 6.5 ng/mL Low 30 - 100 ng/mL [place] Comment on above: Reference Range: Vitamin D status Range Deficiency <20 ng/mL Mild Deficiency 20-30 ng/mL Sufficiency 30-100 ng/mL Toxicity >100 ng/mL Brain Natriuretic Peptideon 06-23-2019 Natriuretic peptide B (Bld) [Mass/Vol] Pro-BNP Reference Range: [employer] Phone: Comment on above: Rule Out: <300 [place]: Age <50 300-450 Age 50-75 300-900 Age >75 300-1800 Usually represents mild to moderate HF but other cardiopulmonary causes cannot be ruled out. Rule In: Age <50 >450 Age 50-75 >900 Age >75 >1800 Natriuretic peptide B (Bld) [Mass/Vol] pg/mL <300 pg/mL [employer] Phone: Comment on above: Pro-BNP results pawan ot be compared to BNP results. CBC Auto Differentialon Basophils (Bld) [#/Vol] 0.05 10*3/uL [employer] Phone: Basophils/100 WBC (Bld) 1 % 0 - 2 % [employer] Phone: Differential Type NOT REPORTED [employer] Phone: Eosinophils (Bld) [#/Vol] 0.28 10*3/uL [employer] Phone: Eosinophils/100 WBC (Bld) 3 % 1 - 4 % [employer] Phone: Erythrocyte distribution width (RBC) [Ratio] 14.6 % High 11.8 - 14.4 % [employer] Phone: Hematocrit (Bld) [Volume fraction] 38.8 % 36.3 - 47.1 % [employer] Phone: Hemoglobin (Bld) [Mass/Vol] 12.0 g/dL 11.9 - 15.1 g/dL [employer] Phone: Immature granulocytes (Bld) [#/Vol] 0.03 10*3/uL [employer] Phone: Immature granulocytes (Bld) [#/Vol] 0 % 0 [employer] Phone: Interpretation and review of laboratory results Abnormal [employer] Phone: Lymphocytes (Bld) [#/Vol] 2.83 10*3/uL [employer] Phone: Lymphocytes/100 WBC (Bld) 35 % 24 - 43 % [employer] Phone: MCH (RBC) [Entitic mass] 26.3 pg 25.2 - 33.5 pg [employer] Phone: MCHC (RBC) [Mass/Vol] 30.9 g/dL 28.4 - 34.8 g/dL [employer] Phone: MCV (RBC) [Entitic vol] 85.1 fL 82.6 - 102.9 fL [employer] Phone: Monocytes (Bld) [#/Vol] 0.56 10*3/uL [employer] Phone: Monocytes/100 WBC (Bld) 7 % 3 - 12 % [employer] Phone: Platelet mean volume (Bld) [Entitic vol] 11.2 fL 8.1 - 13.5 fL [employer] Phone: Platelets (Bld) [#/Vol] NOT REPORTED [employer] Phone: Platelets (Bld) [#/Vol] 360 10*3/uL [employer] Phone: RBC (Bld) [#/Vol] 4.56 10*6/uL 3.95 - 5.1 1 m/uL [employer] Phone: RBC morphology finding Nom (Bld) NOT REPORTED [employer] Phone: Segmented neutrophils/100 WBC (Bld) 54 % 36 - 65 % [employer] Phone: Segs Absolute 4.38 [employer] Work Phone: WBC (Bld) [#/Vol] 0.0 10*3/uL 0.0 per 10 0 WBC [facility] Phone: WBC (Bld) [#/Vol] 8.1 10*3/uL [employer] Phone: WBC Morphology NOT REPORTED [facility] Work Phone: Comprehensive Metabolic Pane l w/ Reflex to MGon 06-23-2019 Albumin [Mass/Vol] 4.5 g/dL 3.5 - 5.2 g/dL [facility] Phone: Albumin/Globulin [Mass ratio] 1.2 {ratio} [employer] Phone: ALP [Catalytic activity/Vol] 70 U/L 35 - 104 U/L [employer] Phone: ALT [Catalytic activity/Vol] 7 U/L 5 - 33 U/L [employer] Phone: Anion gap [Moles/Vol] 12 mmol/L 9 - 17 mmol/L [employer] Phone: AST [Catalytic activity/Vol] 32 U/L High <32 [facility] Phone: Bilirubin Ql (U) 0.30 mg/dL 0.3 - 1.2 mg/dL [employer] Phone: Bun/Cre Ratio 26 High [facility] [employer] Work Phone: Calcium [Mass/Vol] 9.0 mg/dL 8.6 - 10. 4 mg/dL [facility] Phone: Chloride [Moles/Vol] 100 mmol/L 98 - 10 7 mmol/L [employer] Work Phone: CO2 [Moles/Vol] 22 mmol/L 20 - 31 mmol/L [employer] Work Phone: Creatinine [Mass/Vol] 0.58 mg/dL 0.5 - 0.9 mg/dL [employer] Phone: GFR >60 >60 mL/min [employer] Phone: GFR Non- >60 >60 mL/min [employer] Phone: Glucose [Mass/Vol] 112 mg/dL High 70 - 99 mg/dL [facility] Phone: Interpretation and review of laboratory results Abnormal [employer] Phone: Potassium [Moles/Vol] 5.7 mmol/L High 3.7 - 5.3 mmol/L [employer] Phone: Protein [Mass/Vol] 8.3 g/dL 6.4 - 8.3 g/dL [employer] Phone: Sodium [Moles/Vol] 134 mmol/L Low 135 - 144 mmol/L [employer] Phone: Urea nitrogen [Mass/Vol] 15 mg/dL 6 - 20 mg/dL [facility] Phone: D-Dimer, Quantitativeon D-Dimer, Quant 0.39 [employer] Work Phone: Comment on above: Elevated levels [...] activity/Vol] 19 U/L 13 - 60 U/L [facility] Phone: Metabolic Panelon 06-23-2019 GFR/1.73 sq M predicted among non-blacks MDRD (S/P/Bld) [Vol rate/Area] [facility] Phone: Comment on above: Average GFR for 40-4 9 years old: 99 mL/min/1.73sq m Chronic Kidney Disease: <60 mL/min/1.73sq m Kidney failure: <15 mL/min/1.73sq m eGFR calculated using average adult body mass. Additional eGFR calculator available at: http://www.Nuevolution/multiple_crcl_2012.htm Stage 1: Some kidney damage normal GFR Stage 2: Mild kidney damage GFR 60-89 Stage 3: Moderate kidney damage GFR 30-59 Stage 4: Severe kidney damage GFR 15-29 Stage 5: Severe kidney damage GFR <15 ESRD - chronic treatment by dialysis or transplant Troponinon 06-23-2019 Troponin I.cardiac [Mass/Vol] NOT REPORTED [facility] Phone: Troponin T.cardiac [Mass/Vol] NOT REPORTED <0.03 ng/mL [facility] Phone: Troponin, High Sensitivity <6 0 - 14 ng/L [employer] Phone: Comment on above: High Sensitivity Troponin values cannot be compared with other Troponin methodologies. Patients with high levels of Biotin oral intake (i.e >5mg/day) may have falsely decreased Troponin levels. Samples collected within 8 hours of biotin intake may require additional information for diagnosis. Troponin I.cardiac [Mass/Vol] NOT REPORTED [facility] Phone: Troponin T.cardiac [Mass/Vol] NOT REPORTED <0.03 ng/mL [facility] Phone: Troponin, High Sensitivity <6 0 - 14 ng/L [employer] Phone: Comment on above: High Sensitivity Troponin values cannot be compared with other Troponin methodologies. Patients with high levels of Biotin oral intake (i.e >5mg/day) may have falsely decreased Troponin levels. Samples collected within 8 hours of biotin intake may require additional information for diagnosis. XR CHEST PORTABLEon 06-23-19 20 Mian, Mhpn Incoming Radiant Results From [facility] - 06/23/2019 8:56 PM EST EXAMINATION: ONE XRAY VIEW OF THE CHEST 06/23/2019 8:47 pm COMPARISON: 01/30/2017 HISTORY: ORDERING SYSTEM PROVIDED HISTORY: DEMETRIUS GODWIN TECHNOLOGIST PROVIDED HISTORY: DEMETRIUS GODWIN Initial exam FINDINGS: The lungs are without acute focal process. There is no effusion or pneumothorax. The cardiomediastinal silhouette is without acute process. The osseous structures are without acute process. IMPRESSION: No acute process. [employer] Work Phone: EXAMINATION: ONE XRAY VIEW OF THE CHEST 06/23/2019 8:47 pm COMPARISON: 01/30/2017 HISTORY: ORDERING SYSTEM PROVIDED HISTORY: DEMETRIUS GODWIN TECHNOLOGIST PROVIDED HISTORY: DEMETRIUS GODWIN Initial exam FINDINGS: The lungs are without acute focal process. There is no effusion or pneumothorax. The cardiomediastinal silhouette is without acute process. The osseous structures are without acute process. [employer] Work Phone: No acute process. [employer] Work Phone: CBC Auto Differentialon 10-0 Basophils (Bld) [#/Vol] 0.07 10*3/uL [place] Basophils/100 WBC (Bld) 1 % 0 - 2 % [place] Differential Type NOT REPORTED [place] Eosinophils (Bld) [#/Vol] 0.38 10*3/uL [place] Eosinophils/100 WBC (Bld) 5 % High 1 - 4 % [place] Erythrocyte distribution width (RBC) [Ratio] 13.6 % 11.8 - 14.4 % [place] Hematocrit (Bld) [Volume fraction] 36.5 % 36.3 - 47.1 % [place] Hemoglobin (Bld) [Mass/Vol] 11.5 g/dL Low 11.9 - 15.1 g/dL [place] Immature granulocytes (Bld) [#/Vol] 10*3/uL [place] Immature granulocytes (Bld) [#/Vol] 0 % 0 [place] Interpretation and review of laboratory results Abnormal [place] Lymphocytes (Bld) [#/Vol] 2.86 10*3/uL [place] Lymphocytes/100 WBC (Bld) 40 % 24 - 43 % [place] MCH (RBC) [Entitic mass] 27.3 pg 25.2 - 33.5 pg [place] MCHC (RBC) [Mass/Vol] 31.5 g/dL 28.4 - 34.8 g/dL [place] MCV (RBC) [Entitic vol] 86.7 fL 82.6 - 102.9 fL [place] Monocytes (Bld) [#/Vol] 0.69 10*3/uL [place] Monocytes/100 WBC (Bld) 10 % 3 - 12 % [place] Platelet mean volume (Bld) [Entitic vol] 11.3 fL 8.1 - 13.5 fL [place] Platelets (Bld) [#/Vol] 347 10*3/uL [place] Platelets (Bld) [#/Vol] NOT REPORTED [place] RBC (Bld) [#/Vol] 4.21 10*6/uL 3.95 - 5.1 1 m/uL [place] RBC morphology finding Nom (Bld) NOT REPORTED [place] Segmented neutrophils/100 WBC (Bld) 44 % 36 - 65 % [place] Segs Absolute 3.08 [place] WBC (Bld) [#/Vol] 0.0 10*3/uL 0.0 per 10 0 WBC [place] WBC (Bld) [#/Vol] 7.1 10*3/uL [place] WBC Morphology NOT REPORTED [place] Comprehensive Metabolic Pane lea 02-20-2019 Albumin [Mass/Vol] 3.9 g/dL 3.5 - 5.2 g/dL [place] Albumin/Globulin [Mass ratio] 1.1 {ratio} [place] ALP [Catalytic activity/Vol] 68 U/L 35 - 104 U/L [place] ALT [Catalytic activity/Vol] 6 U/L 5 - 33 U/L [place] Anion gap [Moles/Vol] 13 mmol/L 9 - 17 mmol/L [place] AST [Catalytic activity/Vol] 13 U/L <32 [place] Bilirubin Ql (U) 0.31 mg/dL 0.3 - 1.2 mg/dL [place] Bun/Cre Ratio 15 [place], [place] Calcium [Mass/Vol] 9.1 mg/dL 8.6 - 10. 4 mg/dL [place] Chloride [Moles/Vol] 104 mmol/L 98 - 10 7 mmol/L [place] CO2 [Moles/Vol] 22 mmol/L 20 - 31 mmol/L [place] Creatinine [Mass/Vol] 0.52 mg/dL 0.5 - 0.9 mg/dL [place] GFR >60 >60 mL/min [place], [place] GFR Non- >60 >60 mL/min [place] Glucose [Mass/Vol] 90 mg/dL 70 - 99 mg/dL [place] Potassium [Moles/Vol] 3.8 mmol/L 3.7 - 5.3 mmol/L [place] Protein [Mass/Vol] 7.5 g/dL 6.4 - 8.3 g/dL [place] Sodium [Moles/Vol] 139 mmol/L 135 - 144 mmol/L [place] Urea nitrogen [Mass/Vol] 8 mg/dL 6 - 20 mg/dL [place] Ferritinon 02-20-2019 Ferritin [Mass/Vol] 15 ug/L 13 - 150 ug/L [place] Iron and TIBCon 02-20-2019 Iron [Mass/Vol] 50 ug/dL 37 - 145 ug/dL [place] Iron Saturation 13 % Low 20 - 55 % [place] TIBC 384 ug/dL 250 - 450 ug/dL [place] UIBC 334 ug/dL 112 - 347 ug/dL [place] Metabolic Panelon 02-20-2019 GFR/1.73 sq M predicted among non-blacks MDRD (S/P/Bld) [Vol rate/Area] [place] Comment on above: Average GFR for 40-4 9 years old: 99 mL/min/1.73sq m Chronic Kidney Disease: <60 mL/min/1.73sq m Kidney failure: <15 mL/min/1.73sq m eGFR calculated using average adult body mass. Additional eGFR calculator available at: http://www.Nuevolution/multiple_crcl_2012.htm Stage 1: Some kidney damage normal GFR Stage 2: Mild kidney damage GFR 60-89 Stage 3: Moderate kidney damage GFR 30-59 Stage 4: Severe kidney damage GFR 15-29 Stage 5: Severe kidney damage GFR <15 ESRD - chronic treatment by dialysis or transplant Otheron 02-20-2019 Interpretation and review of laboratory results Abnormal [place] Vitamin B12 & Folateon 02-20 Cobalamin (Vitamin B12) [Mass/Vol] 224 pg/mL Low 232 - 1245 pg/mL [place] Folate 10.1 ng/mL >4.8 [place] Interpretation and review of laboratory results Abnormal [place] Vitamin D 25 hydroxyon 02-20 Vit D, 25-Hydroxy 7.3 ng/mL Low 30 - 100 ng/mL [place] Comment on above: Reference Range: Vitamin [...] Strep DNA test is available upon request. [place] Special Requests NOT REPORTED [place] Specimen Description .THROAT [place], [place] Vital Signs Date Time Vital Sign Value Performing Clinician Ella dixon 03-21-2024 10:18-0500 Body height 162.6 cm Janell Baldwin PA-C Work Phone: [facility] 03-21-2024 10:18-0500 Body mass index (BMI) [Ratio] 55.44 kg/m2 Janell KLEIN-C Work Phone: [facility] [employer] [facility] 03-21-2024 10:18-0500 Body weight 146.51 kg Raygan Ciballi PA-C Work Phone: [facility] 03-21-2024 10:18-0500 Diastolic blood pressure 83 mm[Hg] Raygan Ciballi PA-C Work Phone: [facility] 03-21-2024 10:18-0500 SaO2% (BldA) [Mass fraction] 99 % Raygan Ciballi PA-C Work Phone: [facility] 03-21-2024 10:18-0500 Systolic blood pressure 144 mm[Hg] Raygan Ciballi PA-C Work Phone: [facility] 03-21-2024 09:23-0500 Body mass index (BMI) [Ratio] 55.53 kg/m2 Jean Paul Almanzar RD Work Phone: [facility] 03-21-2024 09:23-0500 Body weight 146.[address] Work Phone: [facility] 02-22-2024 10:27-0400 Body height 162.6 cm Raygan Ciballi PA-C Work Phone: [facility] 02-22-2024 10:27-0400 Body mass index (BMI) [Ratio] 54.72 kg/m2 Raygan Ciballi PA-C Work Phone: [facility] 02-22-2024 10:27-0400 Body weight 144.61 kg Raygan Ciballi PA-C Work Phone: [facility] 02-22-2024 10:27-0400 Diastolic blood pressure 74 mm[Hg] Raygan Ciballi PA-C Work Phone: [facility] 02-22-2024 10:27-0400 Heart rate 73 /min Raygan Ciballi PA-C Work Phone: [employer] [facility] 02-22-2024 10:27-0400 SaO2% (BldA) [Mass fraction] 96 % Janell Moralesi PA-C Work Phone: [employer] [facility] 02-22-2024 10:27-0400 Systolic blood pressure 133 mm[Hg] Janell Moralesi PA-C Work Phone: [employer] 02-01-2024 01:04-0400 Heart rate 75 /min Brianna Might [employer]MOKING PIPE MAKER - CHILD DEVELOPMENT TEACHER Work Phone: [employer] 02-01-2024 01:04-0400 Respiratory rate 20 /min Brianna Might [employer]KING PIPE MAKER - CHILD DEVELOPMENT TEACHER Work Phone: [employer] 02-01-2024 00:34-0400 SaO2% (BldA) [Mass fraction] 97 % Brianna Might [employer] PIPE MAKER - CHILD DEVELOPMENT TEACHER Work Phone: [employer] 01-31-2024 22:59-0400 Diastolic blood pressure 102 mm[Hg] Brianna Might [employer]KING PIPE MAKER - CHILD DEVELOPMENT TEACHER Work Phone: [employer] 01-31-2024 22:59-0400 Systolic blood pressure 137 mm[Hg] Brianna Might [employer]KING PIPE MAKER - CHILD DEVELOPMENT TEACHER Work Phone: [facility] [facility] 01-31-2024 20:00-0400 Body height 162.6 cm Brianna Might [employer] PIPE MAKER - CHILD DEVELOPMENT TEACHER Work Phone: [employer] 01-31-2024 20:00-0400 Body mass index (BMI) [Ratio] 53.21 kg/m2 Brianna Might [employer] PIPE [employer] - CHILD DEVELOPMENT TEACHER Work Phone: [employer] 01-31-2024 20:00-0400 Body temperature 98.2 [degF] Brianna Might [employer]KING PIPE MAKER - CHILD DEVELOPMENT TEACHER Work Phone: [employer] 01-31-2024 20:00-0400 Body weight 140.62 kg Brianna Might [employer]MOKING PIPE MAKER - CHILD DEVELOPMENT TEACHER Work Phone: [employer] 01-23-2024 10:47-0400 Body height 162.6 cm Wayne Joseph DO Work Phone: [employer] 01-23-2024 10:47-0400 Body mass index (BMI) [Ratio] 55.85 kg/m2 Wayne Joseph DO Work Phone: [employer] 01-23-2024 10:47-0400 Body weight 147.6 kg Wayne Joseph DO Work Phone: [employer] 01-23-2024 10:47-0400 Diastolic blood pressure 61 mm[Hg] Wayne Joseph DO Work Phone: [employer] 01-23-2024 10:47-0400 Heart rate 69 /min Wayne Joseph DO Work Phone: [employer] [facility] 01-23-2024 10:47-0400 SaO2% (BldA) [Mass fraction] 98 % Wayne Joseph DO Work Phone: [employer] 01-23-2024 10:47-0400 Systolic blood pressure 115 mm[Hg] Wayne Joseph DO Work Phone: [employer] 06-27-2022 12:54-0500 Heart rate 76 /min Surinder Mireles MD Work Phone: [employer] 06-27-2022 12:45-0500 Diastolic blood pressure 86 mm[Hg] Surinder Mireles MD Work Phone: [facility] [employer] 06-27-2022 12:45-0500 Systolic blood pressure 139 mm[Hg] Surinder Mireles MD Work Phone: [facility] [employer] 06-27-2022 12:33-0500 Body mass index (BMI) [Ratio] 56.3 kg/m2 Surinder Mireles MD Work Phone: [facility] [employer] 06-27-2022 12:33-0500 Body temperature 97.59 [degF] Surinder Mireles MD Work Phone: [employer] 06-27-2022 12:33-0500 Body weight 148.78 kg Surinder Mireles MD Work Phone: [employer] 06-27-2022 12:33-0500 Respiratory rate 16 /min Surinder Mireles MD Work Phone: [employer] 06-27-2022 12:33-0500 SaO2% (BldA) [Mass fraction] 98 % Surinder Mireles MD Work Phone: [facility] [employer] 02-12-2021 16:49-0400 Body mass index (BMI) [Ratio] 52.35 kg/m2 Ebony Bonds DO Work Phone: [employer] Work Phone: 02-12-2021 16:49-0400 Body temperature 98.01 [degF] Ebony Bonds DO Work Phone: [employer] Work Phone: 02-12-2021 16:49-0400 Body weight 138.35 kg Ebony Bonds DO Work Phone: [employer] Phone: 02-12-2021 16:49-0400 Diastolic blood pressure 75 mm[Hg] Ebony Bonds DO Work Phone: [employer] Work Phone: 02-12-2021 16:49-0400 Heart rate 95 /min Ebony Bonds DO Work Phone: [employer] Work Phone: 02-12-2021 16:49-0400 Respiratory rate 18 /min Ebony Bonds DO Work Phone: [employer] Work Phone: 02-12-2021 16:49-0400 SaO2% (BldA) [Mass fraction] 95 % Ebony Bonds DO Work Phone: [employer] Work Phone: 02-12-2021 16:49-0400 Systolic blood pressure 108 mm[Hg] Ebony Bonds DO Work Phone: [facility] [employer] Work Phone: 12-14-2020 16:01-0400 Body height 163.83 cm [employer] 12-14-2020 16:01-0400 Body mass index (BMI) [Ratio] 53.74 kg/m2 [employer] 12-14-2020 16:01-0400 Body surface area Derived from formula 2.56 m2 [employer] 12-14-2020 16:01-0400 Body weight 144.24 kg [employer] 12-14-2020 16:01-0400 Diastolic blood pressure 90 mm[Hg] [employer] 12-14-2020 16:01-0400 Heart rate 72 /min [employer] 12-14-2020 16:01-0400 Systolic blood pressure 128 mm[Hg] [employer] 12-07-2020 11:36-0400 Body height 163.83 cm [employer] 12-07-2020 11:36-0400 Body mass index (BMI) [Ratio] 54.16 kg/m2 [employer] 12-07-2020 11:36-0400 Body surface area Derived from formula 2.57 m2 [employer] 12-07-2020 11:36-0400 Body weight 145.38 kg [employer] [facility] 12-07-2020 11:36-0400 Diastolic blood pressure 90 mm[Hg] [employer] 12-07-2020 11:36-0400 Heart rate 80 /min [employer] 12-07-2020 11:36-0400 Systolic blood pressure 130 mm[Hg] [employer] 10-23-2020 18:51-0400 Body temperature 97.7 [degF] Pily Mariscal MD Work Phone: [employer] Work Phone: 10-23-2020 18:51-0400 Diastolic blood pressure 92 mm[Hg] Pily Mariscal MD Work Phone: [employer] Work Phone: 10-23-2020 18:51-0400 Heart rate 89 /min Pily Mariscal MD Work Phone: [employer] Work Phone: 10-23-2020 18:51-0400 Respiratory rate 16 /min Pily Mariscal MD Work Phone: [employer] Work Phone: 10-23-2020 18:51-0400 SaO2% (BldA) [Mass fraction] 100 % Pily Mariscal MD Work Phone: [employer] Work Phone: 10-23-2020 18:51-0400 Systolic blood pressure 136 mm[Hg] Pliy Mariscal MD Work Phone: [employer] Work Phone: 06-28-2020 14:00-0500 BP Diastolic 48 mm[Hg] Pily Mariscal [employer] Work Phone: 06-28-2020 14:00-0500 BP Systolic 117 mm[Hg] Pily Mariscal [employer] Phone: 06-28-2020 14:00-0500 Pulse Oximetry 97 % Pily [employer] Phone: 06-28-2020 13:43-0500 Body Temperature 97.11 [degF] Pily Mariscal [employer] Phone: 06-28-2020 13:43-0500 Pulse (Heart Rate) 66 /min Pily Mariscal [employer] Phone: 06-28-2020 13:43-0500 Respiratory Rate 16 /min Pily Mariscal [employer] Phone: 04-04-2020 22:30-0500 Body Temperature 97.2 [degF] [employer] 04-04-2020 22:30-0500 BP Diastolic 105 mm[Hg] [employer] , [place] 04-04-2020 22:30-0500 BP Systolic 146 mm[Hg] [facility] [place] 04-04-2020 22:30-0500 Pulse (Heart Rate) 74 /min [facility] 04-04-2020 22:05-0500 Pulse Oximetry 97 % [facility] [place] 04-04-2020 21:31-0500 Respiratory Rate 18 /min [employer] 11-13-2019 10:16-0400 BP Diastolic 74 mm[Hg] [employer] 11-13-2019 10:16-0400 BP Systolic 135 mm[Hg] [employer] 11-13-2019 10:16-0400 Pulse Oximetry 97 % [employer] 11-13-2019 07:15-0400 BMI (Body Mass Index) 53.04 kg/m2 [employer] [place] 11-13-2019 07:15-0400 Body Temperature 98.4 [degF] Louis Rodgers [facility]- [place], [place] 11-13-2019 07:15-0400 Body weight 140.16 kg Louis Doyle [facility], [place] 11-13-2019 07:15-0400 Height 162.6 cm Louis Rodgers [facility], [place] 11-13-2019 07:15-0400 Pulse (Heart Rate) 96 /min Louis Ayers [facility] [place], [place] 11-13-2019 07:15-0400 Respiratory Rate 22 /min Louis Rodgers [facility] [place] 11-03-2019 00:24-0400 Body Temperature 97.9 [degF] [facility] [place] 11-03-2019 00:24-0400 BP Diastolic 98 mm[Hg] [facility] , [place] 11-03-2019 00:24-0400 BP Systolic 130 mm[Hg] [facility] , [place] 11-03-2019 00:24-0400 Pulse (Heart Rate) 74 /min [facility], [place] 11-03-2019 00:24-0400 Pulse Oximetry 97 % [facility] , [place] 11-03-2019 00:24-0400 Respiratory Rate 18 /min [facility] [place] 08-09-2019 10:30-0400 BP Diastolic 72 mm[Hg] [facility] Schedule [facility] , [place] 08-09-2019 10:30-0400 BP Systolic 123 mm[Hg] [facility] Schedule [facility] , [place] 08-09-2019 10:30-0400 Pulse (Heart Rate) 72 /min [facility] Schedule [facility], [place] 08-09-2019 09:38-0400 Body Temperature 97 [degF] [facility] Schedule [facility] [employer] [place] , [place] 08-09-2019 09:38-0400 Respiratory Rate 18 /min [facility] [place] 08-01-2019 11:00-0400 BP Diastolic 77 mm[Hg] [facility] 08-01-2019 11:00-0400 BP Systolic 136 mm[Hg] [facility] [place] 08-01-2019 11:00-0400 Pulse (Heart Rate) 73 /min [facility] 08-01-2019 09:48-0400 Body Temperature 97.9 [degF] [facility] [employer], [place] 08-01-2019 09:48-0400 Respiratory Rate 18 /min [facility] [facility] [employer] [facility] [place] 06-23-2019 23:17-0500 BP Diastolic 60 mm[Hg] [employer] Work Phone: 06-23-2019 23:17-0500 BP Systolic 111 mm[Hg] [employer] Work Phone: 06-23-2019 23:17-0500 Pulse (Heart Rate) 75 /min [employer] Work Phone: 06-23-2019 23:17-0500 Respiratory Rate 17 /min [employer] Work Phone: 06-23-2019 22:47-0500 Pulse Oximetry 98 % [employer] Phone: 06-23-2019 20:34-0500 Body Temperature 97.7 [degF] [employer] Work Phone: 04-07-2019 14:14-0500 BP Diastolic 90 mm[Hg] [facility] [employer] [place] 04-07-2019 14:14-0500 BP Systolic 110 mm[Hg] [facility] [employer] [place] 04-07-2019 14:14-0500 Pulse (Heart Rate) 75 /min [facility] [employer] [place] 04-07-2019 14:14-0500 Pulse Oximetry 99 % [facility] [employer] [place] 04-07-2019 14:14-0500 Respiratory Rate 16 /min [facility] 04-07-2019 14:11-0500 Body Temperature 97 [degF] [facility] [employer] [facility], [place] 02-02-2019 06:05-0400 BMI (Body Mass Index) 50.46 kg/m2 Chepe Rodgers [employer] [place] 02-02-2019 06:05-0400 Body Temperature 98.01 [degF] Chepe Rodgers [facility], [place] 02-02-2019 06:05-0400 Body weight 133.36 kg Chepe Rodgers [employer] [place] 02-02-2019 06:05-0400 BP Diastolic 84 mm[Hg] Chepe Rodgers [facility] , [place] 02-02-2019 06:05-0400 BP Systolic 118 mm[Hg] Chepe Rodgers [facility] , [place] 02-02-2019 06:05-0400 Pulse (Heart Rate) 91 /min Chepe Rodgers [employer] [place] 02-02-2019 06:05-0400 Pulse Oximetry 99 % Chepe Rodgers [employer] [place] 02-02-2019 06:05-0400 Respiratory Rate 18 /min [facility] [place] 12-24-2018 20:23-0400 Body Temperature 97 [degF] Brianna Verde [facility] [employer] [facility], [place] 12-24-2018 20:23-0400 BP Diastolic 94 mm[Hg] Brianna Verde [place] 12-24-2018 20:23-0400 BP Systolic 133 mm[Hg] Brianna Verde [place] 12-24-2018 20:23-0400 Pulse (Heart Rate) 94 /min Brianna Verde [place] 12-24-2018 20:23-0400 Pulse Oximetry 96 % Brianna Verde [place] 12-24-2018 20:23-0400 Respiratory Rate 14 /min Brianna Verde [place] Encounters Encounter Date Encounter Type Care Provider Facility Start: 03-21-2024 End: 03-21-2024 Office outpatient visit 25 minutes Janell Baldwin PA-C Work Phone: [facility] Comment on above: Morbid obesity with body mass index of 50 or higher (Primary Dx); Type 2 diabetes mellitus without complication, unspecified whether intermediate manager insulin use Start: 03-21-2024 End: 03-21-2024 Patient encounter procedure Jean Paul Farrah RD Work Phone: [facility] Comment on above: Nutritional counseli ng (Primary Dx); Morbid obesity with BMI of 50.0-59.9, adult Start: 03-21-2024 ambulatory [facility] Start: 03-21-2024 ambulatory [facility] Start: 02-22-2024 End: 02-22-2024 Office outpatient new 30 minutes Janell Ferrara Denny CHOUDHURY Work Phone: [facility] Comment on above: Morbid obesity with body mass index of 50 or higher (Primary Dx); WALTER (obstructive sleep apnea); Type 2 diabetes mellitus without complication, unspecified whether fdc insulin use Start: 02-22-[address] [facility] Start: 01-31-2024 End: 02-01-2024 Emergency department patient visit [facility] ED Comment on above: Abdominal pain, unsp ecified abdominal location (Primary Dx); Urinary tract infection without hematuria, site unspecified Start: 01-23-2024 End: 01-23-2024 Office outpatient new 30 minutes Wayne Joseph DO Work Phone: [facility] Comment on above: Morbid obesity with BMI of 50.0-59.9, adult (Primary Dx); Type 2 diabetes mellitus without complication, unspecified whether intermediate manager insulin use; Essential hypertension Start: 01-23-2024 ambulatory [facility] Start: 11-21-2023 End: 11-23-2023 ambulatory JEN HELMS [facility] Start: 09-28-2023 End: 09-28-2023 ambulatory BRADLY MCCAIN [facility] Start: 09-07-2023 End: 09-07-2023 [facility] Start: 08-22-2023 End: 08-22-2023 ambulatory [facility] Start: 07-28-2023 End: 07-28-2023 ambulatory FLORA RHODESTELLO [facility] Start: 07-24-2023 End: 07-24-2023 ambulatory BRIANNA Chavez [facility] Start: 07-24-2023 End: 07-24-2023 Subsequent hospital visit by physician Brianna Restrepo CNP Work Phone: [facility] Comment on above: Acute UTI Start: 06-15-2023 ambulatory Nithin Simpson acility:[facility] Start: 04-23-2023 End: 04-23-2023 Emergency department patient visit JOVAN ALBARRAN [facility] Start: 04-14-2023 End: 04-14-2023 Emergency department patient visit KALE CARTER [facility] Start: 03-10-2023 End: 03-10-2023 Emergency department patient visit JESSICA CHAVES [facility] Start: 02-19-2023 End: 02-19-2023 Emergency department patient visit BRIANNA Chavez [facility] Start: 06-27-2022 End: 06-27-2022 Emergency department patient visit Surinder Mireles MD Work Phone: [facility] ED Comment on above: Acute nonintractable headache, unspecified headache type (Primary Dx) Start: 12-29-2021 End: 12-29-2021 Subsequent hospital visit by physician Brianna Verde APRN - MORGAN Work Phone: [facility] Laboratory Comment on above: B12 deficiency Start: 11-08-2021 End: 11-08-2021 Subsequent hospital visit by physician Sujit Aguirre PT [facility] Physical Therapy Comment on above: Arrived Start: 09-20-2021 End: 09-20-2021 Subsequent hospital visit by physician Anusha Torers PTA [facility] Physical Therapy Start: 09-03-2021 End: 09-03-2021 Subsequent hospital visit by physician Anusha Torres PTA [facility] Physical Therapy Comment on above: Arrived Start: 08-06-2021 End: 08-06-2021 Subsequent hospital visit by physician Anusha Torres PTA [facility] Physical Therapy Comment on above: Canceled (Case cance lled) Start: 07-16-2021 End: 07-16-2021 Subsequent hospital visit by physician Donna Damon PT [facility] Physical Therapy Comment on above: Arrived Start: 06-11-2021 End: 06-13-2021 Subsequent hospital visit by physician Brianna Verde S[employer]KING PIPE [employer] Work Phone: [facility] Start: 02-12-2021 End: 02-12-2021 Emergency department patient visit Ebony Bonds Work Phone: [facility] ED Comment on above: Diarrhea, unspecifie d type (Primary Dx); Nonintractable headache, unspecified chronicity pattern, unspecified headache type; Syncope and collapse Start: 01-14-2021 End: 01-14-[address] CRAIG BUSTILLO Facility: Start: 12-14-2020 [facility] Other [facility] Start: 12-07-2020 Split [facility] Kaye G [facility] Other [facility] Office Start: 11-25-2020 End: 11-25-2020 Subsequent hospital visit by physician Brianna Verde S[employer]KING PIPE [employer] Work Phone: [facility] Laboratory Comment on above: Polyneuropathy; Hypocalcemia Start: 11-06-2020 End: 11-06-2020 Subsequent hospital visit by physician Pj Siddiqui PT [facility] Physical Therapy Start: 10-30-2020 End: 10-30-2020 Subsequent hospital visit by physician Pj Siddiqui PT [facility] Physical Therapy Start: 10-23-2020 End: 10-23-2020 Emergency department patient visit Pily Mariscal MD Work Phone: [facility] ED Comment on above: Pain, dental (Primar y Dx); Insect bite of right upper arm, initial encounter Start: 09-22-2020 End: 09-22-2020 Subsequent hospital visit by physician Anusha Torres PTA [facility] Physical Therapy Comment on above: Arrived Start: 09-18-2020 End: 09-18-2020 Subsequent hospital visit by physician Anusha Torres PTA [facility] Physical Therapy Comment on above: Arrived Start: 09-14-2020 End: 09-14-2020 Subsequent hospital visit by physician Pj Siddiqui PT [facility] Physical Therapy Comment on above: Arrived Start: 09-04-2020 End: 09-04-2020 Subsequent hospital visit by physician Pj [facility] Comment on above: Arrived Start: 06-28-2020 End: 06-28-2020 Emergency department patient visit Pily Mariscal Work Phone: [facility] ED Comment on above: Multiple contusions (Primary Dx); Fall, initial encounter Start: 05-22-2020 End: 05-22-2020 Subsequent hospital visit by physician Brianna SLOAN Laboratory Comment on above: Iron deficiency anem ia, unspecified iron deficiency anemia type; Intestinal malabsorption, unspecified type; H/O gastric bypass; B12 deficiency Start: 04-04-2020 End: 04-04-2020 Emergency department patient visit Suraj Barajas Work Phone: [facility] ED Comment on above: Viral illness (Prima ry Dx) Start: 11-13-2019 End: 11-13-2019 Emergency department patient visit Louis Doyle [facility] ED Comment on above: Non-surgical abdomin al pain (Primary Dx) Start: 11-03-2019 End: 11-03-2019 Emergency department patient visit Emil Mays Work Phone: [facility] ED Comment on above: Back strain, initial encounter (Primary Dx); Skin yeast infection; Concern about STD in female without diagnosis Start: 08-09-2019 End: 08-09-2019 Subsequent hospital visit by physician Nathalia Med Onc Room 8 Schedule [facility] Comment on above: Intestinal malabsorp tion, unspecified type (Primary Dx); Iron deficiency anemia, unspecified iron deficiency anemia type Start: 08-01-2019 End: 08-01-2019 Subsequent hospital visit by physician Nathalia Med Onc Room 1 Schedule [facility] Comment on above: Intestinal malabsorp tion, unspecified type (Primary Dx); Iron deficiency anemia, unspecified iron deficiency anemia type Start: 07-18-2019 End: 07-19-2019 Patient encounter procedure BRENDA RIOS [facility] Start: 07-18-2019 End: 07-18-2019 Subsequent hospital visit by physician Brianna JONES [place] [facility] DOCTOR Start: 06-23-2019 End: 06-23-2019 Emergency department patient visit Nickolas Domingo Work Phone: [facility] ED Comment on above: Nonspecific chest pa in (Primary Dx) Start: 04-07-2019 End: 04-07-2019 Emergency department patient visit Wayne Ozuna Work Phone: [facility] ED Comment on above: Acute parotitis (Amparo erlin Dx); Acute upper respiratory infection Start: 02-20-2019 End: 02-20-2019 Subsequent hospital visit by physician Brianna Verde [facility] Laboratory Comment on above: Iron deficiency anem ia, unspecified iron deficiency anemia type; Intestinal malabsorption, unspecified type; H/O gastric bypass; B12 deficiency Start: 02-19-2019 End: 02-19-2019 Subsequent hospital visit by physician Nathalia Sleep Rm [address] [facility] Sleep Center Comment on above: WALTER (obstructive sle ep apnea) Start: 02-02-2019 End: 02-02-2019 Emergency department patient visit Chepe Stafford Work Phone: [facility] ED Comment on above: Acute pharyngitis, u nspecified etiology (Primary Dx); Acute tonsillitis, unspecified etiology Start: 12-24-2018 End: 12-24-2018 Emergency department patient visit Brianna Mehreen [facility] ED Comment on above: Acute [...] Basic metabolic panel calcium total Maynor Rivera SMOKING PIPE MAKER - CHILD DEVELOPMENT TEACHER Work Phone: Start: 11-25-2020 VITAMIN B12 & FOLATE Sh awjoseph Meng Deamert SMOKING PIPE MAKER - CHILD DEVELOPMENT TEACHER Work Phone: Start: 06-28-2020 Radiologic examinati on [...] 11-03-2019 Urine test visual color cmprsn meths [employer] Work Phone: Start: 11-03-2019 Urnls dip stick/tabl et reagent auto microscopy [employer] Work Phone: Start: 07-18-2019 25 hydroxy includes [...] Author Start: 03-21-2029 Lipid panel LIPID SCREENING [employer] Start: 07-27-2028 Lipid panel Lipids [facility] [employer] Start: 08-15-2027 Shingles Vaccine (1 of 2) Shingles Vaccine (1 of 2) [employer] Work Phone: Start: 11-20-2025 Screening for malign ant neoplasm of breast Breast cancer screen [facility] [employer] Start: 01-30-2025 GFR test (Diabetes, CKD 3-4, OR last GFR 15-59) GFR test (Diabetes, CKD 3-4, OR last GFR 15-59) [facility] [employer] Start: 11-20-2024 Screening for malign ant neoplasm of breast MAMMOGRAM SCREENING DISCUSSION [facility] Start: 08-07-2024 Depression [facility] [employer] Start: 07-23-2024 COVID-19 Vaccine (#1) COVID-19 Vacci ne (#1) [facility] [employer] Comment on above: Postponed from 02/13 (Patient Refused) Start: 07-23-2024 DTaP/Tdap/Td vaccine (2 - Td or Tdap) DTaP/Tdap/Td vaccine (2 - Td or Tdap) [facility] [employer] Comment on above: Postponed from 11/17 (Patient Refused) Start: 07-23-2024 Hepatitis B vaccine (1 of 3 - 19+ 3-dose series) Hepatitis B vaccine (1 of 3 - 19+ 3-dose series) [facility] [employer] Comment on above: Postponed from 08/14 (Patient Refused) Start: 07-23-2024 Hepatitis B vaccine (1 of 3 - 3-dose series) Hepatitis B vaccine (1 of 3 - 3-dose series) [facility] [employer] Comment on above: Postponed from 08/14 (Patient Refused) Start: 07-23-2024 Influenza vaccination Flu vaccine (# 1) [facility] [employer] Comment on above: Postponed from 12/13 (Patient Refused) Start: 04-18-2024 End: 04-18-2024 Patient encounter procedure 04/18/2024 10:00 AM EST Office Visit [facility] [address] [place] [address] Janell Baldwin, PALauroC [address] [place] [phone] [facility] Start: 04-12-2024 End: 04-12-2024 Telemedicine consultation with patient 04/12/2024 11:00 AM EST Telemedicine [facility] [address] [place] [address] Jean Paul Almanzar, RD [address] [place] [address] [facility] Start: 03-21-2024 End: 03-21-2024 Patient encounter procedure [facility] Start: 02-22-2024 End: 02-21-2025 Comprehensive metabolic 2000 panel - Serum or Plasma COMPREHENSIVE METABOLIC PANEL Lab Routine Morbid obesity with body mass index of 50 or higher WALTER (obstructive sleep apnea) Type 2 diabetes mellitus without complication, unspecified whether intermediate manager insulin use Expected: 02/22/2024, Expires: 02/21/2025 [facility] Comment on above: Expected: 02/22/2024 , Expires: 02/21/2025 Start: 02-22-2024 End: 02-21-2025 Hemoglobin A1c/Hemoglobin.total in Blood HEMOGLOBIN A1C Lab Routine Morbid obesity with body mass index of 50 or higher WALTER (obstructive sleep apnea) Type 2 diabetes mellitus without complication, unspecified whether fdc insulin use Expected: 02/22/2024, Expires: 02/21/2025 [facility] Comment on above: Expected: 02/22/2024 , Expires: 02/21/2025 Start: 02-22-2024 End: 02-22-2024 Patient encounter procedure 02/22/2024 10:30 AM EDT Office Visit [facility] [address] [place] [address] Janell Baldwin, PA-C [address] [place] [phone] [facility] Start: 01-25-2024 End: 01-25-2024 Patient encounter procedure 01/25/2024 2:20 PM EDT Office Visit [facility] [address] [place] [address] Might, Brianna W, SMOKING PIPE MAKER - CHILD DEVELOPMENT TEACHER [address] [facility] [place] [place] [address] 6 month f/u [facility] Comment on above: 6 month f/u Start: 01-14-2024 COVID-19 VACCINE ( season) COVID-19 VACCINE ( season) [facility] Start: 01-14-2024 COVID-19 VACCINE ( season) COVID-19 VACCINE ( season) [facility] Start: 01-14-2024 Influenza vaccination INFLUENZA VACC INE (#1) [facility] Start: 12-14-2023 Influenza vaccination Flu vaccine (# 1) [facility] Start: 10-30-2023 Lipid panel [facility] Start: 10-30-2023 Lipid screen Lipid screen [facility] th- [place], [place] Start: 09-11-2023 End: 09-11-2023 Patient encounter procedure 09/11/2023 11:40 AM EDT Office Visit [facility] NEUROLOG[facility] Part of [address] [place] [address] Stephanie Arredondo MD [address] [place] [address] [address] [place] [address] Just want to check in and get my meds [facility] Part of [facility] Comment on above: Just want to check i n and get my meds Start: 08-16-2023 End: 08-16-2023 Patient encounter procedure 08/16/2023 1:15 PM EDT Office Visit [facility] ONCOLOGY SPECIALISTS Part of [address] [address] Brenda Rios MD [address] [place] [address] b12 deficiency [facility] Part of [facility] Comment on above: b12 deficiency Start: 08-08-2023 End: 08-08-2023 Nursing evaluation of patient and report 08/08/2023 2:30 PM EDT Nurse Only [facility] [address] [place] [address] 2 week bp check [facility] Comment on above: 2 week bp check Start: 07-22-2023 Depression Monitoring Depression Mon [facility] Start: 01-03-2023 COVID-19 Vaccine (#1) COVID-19 Vacci ne (#1) [facility] Comment on above: Postponed from 02/13 (Not Indicated) Start: 01-03-2023 Depression Monitoring Depression Mon [facility] Start: 01-03-2023 Screening for malign ant neoplasm of cervix Cervical cancer screen [facility] Comment on above: Postponed from 08/14 (Not Indicated) Start: 11-17-2022 DTaP/Tdap/Td vaccine (2 - Td or Tdap) DTaP/Tdap/Td vaccine (2 - Td or Tdap) [facility] Start: 11-17-2022 DTaP/Tdap/Td vaccine (2 - Td) DTaP/Tdap/Td vaccine (2 - Td) [place], [place] Start: 11-17-2022 Tetanus vaccination [facility] Start: 2022 Screening for malign ant neoplasm of colon [facility] Start: 07-13-2022 End: 07-13-2022 Patient encounter procedure 07/13/2022 Office Visit Oncology Flora Moore MD [address] [place] [address] [facility] Part of [facility] Start: 07-06-2022 End: 07-06-2022 Patient encounter procedure 07/06/2022 Office Visit Primary Care Brianna Verde, SMOKING PIPE MAKER - CHILD DEVELOPMENT TEACHER [address] [place] [address] [facility] Start: 05-21-2022 Depression Monitoring Depression Mon [facility] Start: 04-28-2022 End: 04-28-2022 Patient encounter procedure 04/28/2022 Office Visit Neurology Stephanie Arredondo MD [address] [place] [address] [facility] NEUROLOGY Part [facility] Start: 01-13-2022 Influenza vaccination [facility] Start: 01-07-2022 End: 01-07-2022 Patient encounter procedure 01/07/2022 Appointment Physical Therapy Anusha Torres PTA [facility] Physical Therapy Start: 01-05-2022 End: 01-05-2022 Patient encounter procedure [facility] Part [facility] Start: 01-03-2022 End: 01-03-2022 Patient encounter procedure 01/03/2022 Office Visit Primary Care Brianna Verde APRN - CHILD DEVELOPMENT TEACHER [address] [place], [place] [phone] [facility] Start: 12-13-2021 Influenza vaccination Flu vaccine (# 1) [facility] Start: 11-25-2021 COVID-19 Vaccine (1) COVID-19 Vaccin e (1) [facility] Comment on above: Postponed from 08/14 (Patient Refused) Postponed from 08/14 (Patient Refused) Start: 11-25-2021 Screening for malign ant neoplasm of cervix Cervical cancer screen [facility] Work Phone: Comment on above: Postponed from 08/14 (Not Indicated) Start: 11-19-2021 End: 11-19-2021 Patient encounter procedure 11/19/2021 Office Visit Primary Care Brianna Verde SMOKING PIPE MAKER - CHILD DEVELOPMENT TEACHER [address] [place] [address] [facility] Start: 10-28-2021 End: 10-28-2021 Patient encounter procedure 10/28/2021 [place] [address] [place] [address] [facility] ON[facility] SPECIALISTS Part [facility] Start: 10-21-2021 End: 10-21-2021 Patient encounter procedure 10/21/2021 Office Visit Neurology Stephanie Arredondo MD [address] [place] [address] [facility] NEUROLOGY Part [facility] Start: 09-22-2021 End: 09-22-2021 Patient encounter procedure 09/22/2021 Office Visit Oncology Flora Moore MD [address] [place] [address] [facility] ON[facility] SPECIAL[facility] Part [facility] Start: 09-17-2021 End: 09-17-2021 Patient encounter procedure 09/17/2021 Appointment Physical Therapy Prabhu Leiva, CAPTAIN/[employer]LINE [employer] Physical Therapy Start: 09-09-2021 End: 09-09-2021 Patient encounter procedure 09/09/2021 Office Visit Neurology Stephanie Arredondo MD [address] [place] [address] [facility] NEUR[facility] Start: 09-03-2021 End: 09-03-2021 Patient encounter procedure 09/03/2021 Appointment Physical Therapy Prabhu Leiva, CAPTAIN/[employer]IRLINE [employer] Physical Therapy Start: 08-20-2021 End: 08-20-2021 Patient encounter procedure 08/20/2021 Appointment Physical Therapy Prabhu Leiva, CAPTAIN/[employer]LINE [employer] Physical Therapy Start: 08-11-2021 End: 08-11-2021 Patient encounter procedure [facility] Part [facility] Start: 07-12-2021 End: 07-12-2021 Patient encounter procedure [facility] NEUROLOG[facility] Start: 02-24-2021 End: 02-24-2021 Patient encounter procedure 02/24/2021 Office Visit Primary Care Might, Brianna W, SMOKING 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 Start: 01-13-2021 Influenza vaccination [facility] Start: 12-09-2020 End: 12-09-2020 Office Visit 12/09/2020 Office Visit Primary Care Brianna Verde W, SMOKING PIPE MAKER - CHILD DEVELOPMENT TEACHER [address] [facility] [place] [address] [phone] [facility] Start: 11-06-2020 End: 11-06-[address] [facility] Physical Therapy Start: 10-30-2020 End: 10-30-2020 Patient encounter procedure 10/30/2020 Appointment Physical Therapy Pj Siddiqui, PT [facility] Physical Therapy Start: 10-29-2020 End: 10-29-2020 Patient encounter procedure 10/29/2020 Office Visit Neurology Stephanie Arredondo MD [address] [place] [phone] [facility] NEUROLOGY Part of [facility] Start: 10-07-2020 End: 10-07-2020 Patient encounter procedure 10/07/2020 Appointment Physical Therapy Shailesh [facility]ung [facility] Start: 10-05-2020 End: 10-05-2020 Patient encounter procedure 10/05/2020 Appointment Physical Therapy Pj Siddiqui, [facility] Start: 10-03-2020 Diabetes screen Diabetes screen [facility] Start: 09-30-2020 End: 09-30-[address] [facility] Physical Therapy Start: 09-28-2020 End: 09-28-2020 Patient encounter procedure 09/28/2020 Appointment Physical Therapy Pj Siddiqui PT [facility] Start: 09-23-2020 End: 09-23-2020 Patient encounter procedure 09/23/2020 Appointment Physical Therapy Shailesh Leung [facility] Start: 09-21-2020 End: 09-21-2020 Patient encounter procedure 09/21/2020 Appointment Physical Therapy Pj Siddiqui PT [facility] Start: 09-16-2020 End: 09-16-2020 Patient encounter procedure 09/16/2020 Appointment Physical Therapy Shailesh Leung [facility] Start: 09-14-2020 End: 09-14-2020 Patient encounter procedure 09/14/2020 Appointment Physical Therapy Pj Siddiqui PT [facility] Start: 09-10-2020 End: 09-10-2020 Patient encounter procedure 09/10/2020 Appointment Physical Therapy Pj Siddiqui PT [facility] Start: 09-08-2020 End: 09-08-2020 Patient encounter procedure 09/08/2020 Appointment Physical Therapy Shailesh [facility] Start: 07-22-2020 End: 07-22-2020 Office Visit 07/22/2020 Office Visit Oncology Brenda Rios MD [address] [place] [address] [facility] ONCOLOGY SPECIALISTS Part of [facility] Start: 06-18-2020 Cervical cancer screen Cervical canc er screen [facility] Work Phone: Comment on above: Postponed from 08/14 (Patient Refused) Start: 06-18-2020 Influenza vaccination [facility] Return Path Phone: Comment on above: Postponed from 01/13 (Patient Refused) Postponed from 01/13 (Patient Refused) Start: 06-18-2020 Screening for malign ant neoplasm of cervix Cervical cancer screen [facility], [place] Comment on above: Postponed from 08/14 (Patient Refused) Start: 04-06-2020 End: 04-06-2020 Office Visit 04/06/2020 Office Visit Primary Care Brianna Verde, SMOKING PIPE MAKER - CHILD DEVELOPMENT TEACHER [address] [place] [address] [phone] [facility] Start: 01-22-2020 End: 01-22-2020 Office Visit 01/22/2020 Office Visit Oncology Brenda Rios MD [address] [place] [address] [facility] ON[facility] Start: 01-14-2020 Influenza vaccination Flu vaccine (# 1) [place], [place] Start: 12-18-2019 End: 12-18-2019 Office Visit [facility] Start: 08-09-2019 End: 08-09-2019 Appointment 08/09/2019 Appointment Infusion Therapy [facility] Start: 07-18-2019 End: 07-18-2019 Office Visit 07/18/2019 Office Visit Oncology Brenda Rios MD [address] [place] [address] [facility] Start: 04-25-2019 End: 04-25-2019 Office Visit 04/25/2019 Office Visit Primary Care Brianna Verde, SMOKING PIPE MAKER - CHILD DEVELOPMENT TEACHER [address] [place] [address] [phone] [facility] Start: 02-19-2019 End: 02-19-2019 Appointment 02/19/[address] [facility] Sleep Center Start: 02-11-2019 End: 02-11-2019 Office Visit 02/11/2019 Office Visit Oncology Carmela Mariscal MD [address] [place] [phone] [facility] On[facility] Special[facility] Start: 01-31-2019 End: 01-31-2019 Office Visit 01/31/2019 Office Visit Oncology Carmela Mariscal MD [address] [place] [phone] [facility] On[facility] Special[facility] Start: 01-13-2019 Influenza vaccination Flu vaccine (# 1) [place], [place] Start: 2017 [facility] Start: 2017 Screening for malign ant neoplasm of breast MAMMOGRAM SCREENING DISCUSSION [employer] [facility] Start: 08-15-2007 Screening for malign ant neoplasm of cervix [facility] Start: 1998 Cervical cancer screen Cervical canc er screen [place], [place] Start: 1998 [facility]ening for malign ant [facility]oplasm [facility] cervix [facility] Start: 1996 Hepatitis B vaccination HEP B VACCINE (1 of 3 - 19+ 3-dose series) [facility] Start: 1993 COVID-19 Vaccine (1) COVID-19 Vaccin e (1) [employer] Phone: Start: 1992 HIV screening HIV SCREENING DISCUSSI ON [facility] Start: 1989 COVID-19 Vaccine (1) COVID-19 Vaccin e (1) [employer] Phone: Start: 02-13-1978 COVID-19 Vaccine (#1) COVID-19 Vacci ne (#1) [facility] Start: 1977 Hepatitis C screening HEPATITI S C VIRUS SCREENING [facility] End: 11-25-2020 RAÚL Screen With Reflex RAÚL Screen With Reflex Lab Routine Polyneuropathy 1 Occurrences starting 11/25/2020 until 11/25/2020 [employer] Phone: Comment on above: 1 Occurrences starti ng 11/25/2020 until 11/25/2020 RAÚL Screen With Reflex RAÚL Scree n With Reflex Lab Routine Polyneuropathy 11/25/2020 9:20 AM EDT [employer] Phone: End: 02-12-2021 Basic metabolic 2000 panel - Serum or Plasma Basic Metabolic Panel Lab STAT One Time for 1 Occurrences starting 02/12/2021 until 02/12/2021 [employer] Phone: Comment on above: One Time for 1 Occur rences starting 02/12/2021 until 02/12/2021 End: 02-12-2021 CBC panel - Blood by Automated count CBC Lab STAT One Time for 1 Occurrences starting 02/12/2021 until 02/12/2021 [employer] Phone: Comment on above: One Time for 1 Occur rences starting 02/12/2021 until 02/12/2021 End: 11-03-2019 Chlamydia trachomatis DNA, Urine Chlamydia trachomatis DNA, Urine Microbiology Routine One Time for 1 Occurrences starting 11/03/2019 until 11/03/2019 [place], [place] Comment on above: One Time for 1 Occur rences starting 11/03/2019 until 11/03/2019 Chlamydia trachomati s DNA, Urine Chlamydia trachomatis DNA, Urine Microbiology STAT 11/03/2019 1:03 AM EDT [place] End: 05-22-2020 Cobalamin (Vitamin B12) [Mass/Vol] Vitamin B12 Lab Routine Iron deficiency anemia, unspecified iron deficiency anemia type Intestinal malabsorption, unspecified type H/O gastric bypass B12 deficiency 1 Occurrences starting 05/22/2020 until 05/22/2020 [place] Comment on above: 1 Occurrences starti ng 05/22/2020 until 05/22/2020 Cobalamin (Vitamin B 12) [Mass/Vol] Vitamin B12 Lab Routine Iron deficiency anemia, unspecified iron deficiency anemia type Intestinal malabsorption, unspecified type H/O gastric bypass B12 deficiency 05/22/2020 4:49 PM EST [place] End: 04-04-2020 COVID-19, PCR COVID-19, PCR Lab Routine One Time for 1 Occurrences starting 04/04/2020 until 04/04/2020 [place] Comment on above: One Time for 1 Occur rences starting 04/04/2020 until 04/04/2020 COVID-19, PCR COVID-19, PCR La b STAT 04/04/2020 9:25 PM EST [place], [place] CT HEAD W WO CONTRAST CT HEAD W WO CONTRAST Imaging STAT 06/27/2022 1:15 PM EST [employer] [facility] [employer] Work Phone: End: 02-12-2021 CT Head WO Contrast CT Head WO Contrast Imaging STAT Once for 1 Occurrences starting 02/12/2021 until 02/12/2021 [employer] Work Phone: Comment on above: Once for 1 Occurrenc es starting 02/12/2021 until 02/12/2021 End: 07-24-2023 Culture, Urine [facility] [employer] Comment on above: 1 Occurrences starti ng 07/24/2023 until 07/24/2023 EKG 12 Lead [employer] Work Phone: EKG 12 Lead EKG 12 Lead ECG STAT 06/27/2022 12:52 PM EST [facility] Phone: EKG 12 Lead (Select if Upper Abd Pain, or SOB, Diaphoresis or Tachy) EKG 12 Lead (Select if Upper Abd Pain, or SOB, Diaphoresis or Tachy) ECG STAT 01/31/2024 9:50 PM EDT [employer] Phone: End: 05-22-2020 Folate Folate Lab Routine Iron deficiency anemia, unspecified iron deficiency anemia type Intestinal malabsorption, unspecified type H/O gastric bypass B12 deficiency 1 Occurrences starting 05/22/2020 until 05/22/2020 [employer] Comment on above: 1 Occurrences starti ng 05/22/2020 until 05/22/2020 Folate Folate Lab Routi ne Iron deficiency anemia, unspecified iron deficiency anemia type Intestinal malabsorption, unspecified type H/O gastric bypass B12 deficiency 05/22/2020 4:49 PM EST [employer] End: 02-12-2021 HCG Qualitative, Serum HCG Qualitative, Serum Lab STAT One Time for 1 Occurrences starting 02/12/2021 until 02/12/2021 [employer] Phone: Comment on above: One Time for 1 Occur rences starting 02/12/2021 until 02/12/2021 End: 02-20-2019 Methylmalonic Acid, Serum Methylmalonic Acid, Serum Lab Routine Iron deficiency anemia, unspecified iron deficiency anemia type Intestinal malabsorption, unspecified type H/O gastric bypass B12 deficiency 1 Occurrences starting 02/20/2019 until 02/20/2019 [place] Comment on above: 1 Occurrences starti ng 02/20/2019 until 02/20/2019 Methylmalonic Acid, Serum Methylmalonic Acid, Serum Lab Routine Iron deficiency anemia, unspecified iron deficiency anemia type Intestinal malabsorption, unspecified type H/O gastric bypass B12 deficiency 02/20/2019 7:57 AM EDT [place] End: 02-19-2019 Sleep Study with PAP Titration Sleep Study with PAP Titration Sleep Center Routine WALTER (obstructive sleep apnea) 1 Occurrences starting 02/19/2019 until 02/19/2019 [place], [place] Comment on above: 1 Occurrences starti ng 02/19/2019 until 02/19/2019 End: 02-20-2019 Soluble transferrin receptor Soluble transferrin receptor Lab Routine Iron deficiency anemia, unspecified iron deficiency anemia type 1 Occurrences starting 02/20/2019 until 02/20/2019 [place] Comment on above: 1 Occurrences starti ng 02/20/2019 until 02/20/2019 Soluble transferrin receptor Soluble transferrin receptor Lab Routine Iron deficiency anemia, unspecified iron deficiency anemia type 02/20/2019 7:57 AM EDT [place] End: 02-12-2021 Troponin I.cardiac [Mass/volume] in Serum or Plasma Troponin Lab STAT One Time for 1 Occurrences starting 02/12/2021 until 02/12/2021 [employer] Phone: Comment on above: One Time for 1 Occur rences starting 02/12/2021 until 02/12/2021 End: 11-25-2020 Vitamin D 1,25 Dihydroxy Vitamin D 1,25 Dihydroxy Lab Routine Hypocalcemia 1 Occurrences starting 11/25/2020 until 11/25/2020 [employer] Phone: Comment on above: 1 Occurrences starti ng 11/25/2020 until 11/25/2020 Vitamin D 1,25 Dihydroxy Vitamin D 1,25 Dihydroxy Lab Routine Hypocalcemia 11/25/2020 9:21 AM EDT [employer] Phone: End: 02-12-2021 XR CHEST PORTABLE XR CHEST PORTABLE Imaging STAT Once for 1 Occurrences starting 02/12/2021 until 02/12/2021 [employer] Phone: Comment on above: Once for 1 Occurrenc es starting 02/12/2021 until 02/12/2021 Immunizations Immunization Date Immunization Notes Care Provider Dedra holloway 03-20-2018 influenza, injectabl e, quadrivalent, preservative free Rbianna Might [place], [place] 03-20-2018 Influenza, Quadv, 6 mo and older, IM, PF (Flulaval, Fluarix) Chepe Stafford [facility] 06-20-2016 influenza, injectabl e, quadrivalent, preservative free Brianna Might [facility], [place] 06-20-2016 influenza virus vaccine, unspecified formulation Wayne Jake DO Work Phone: [facility] 11-17-2012 tetanus toxoid, redu jairon diphtheria toxoid, and acellular pertussis vaccine, adsorbed Brianna Mehreen [facility] Payers Date Payer Category Payer Unknown [facility] [id number] 2023-Present [address] [place] [address] [id number] 2022 Self-pay 2016 Unknown [facility] xxxxxxxxxxx 2016-Present [phone] CLAIMS DEPARTMENT [address] [place] [address] xxxxxxxxxxx [id number] 2016 Unknown [id number]. [id number] 1977 Unknown [id number] 2.16.840.1.969051.3.579.2.175 1977 Unknown [id number] 2.16.840.1.766123.3.579.2.593 1977 Unknown [id number] 2.16.840.1.719297.3.579.2.173 1977 Unknown [id number] 2.16.840.1.566255.3.579.2.173 1977 Unknown [id number] 2.16.840.1.195825.3.579.2.173 1977 Unknown [id number] 2.16.840.1.329970.3.579.2.173 1977 Unknown [id number] 2.16.840.1.280397.3.579.2.173 1977 Unknown [id number] 2.16.840.1.268961.3.579.2.173 1977 Unknown [id number] 2.16.840.1.748968.3.579.2.173 1977 Unknown [id number] 2.16.840.1.129448.3.579.2.173 1977 Unknown [id number] 2.16.840.1.630587.3.579.2.173 1977 Unknown [id number] 2.16.840.1.145259.3.579.2.173 1977 Unknown [id number] 2.16.840.1.624828.3.579.2.173 1977 Unknown [id number] 2.16.840.1.255456.3.579.2.983 1977 Unknown [id number] 2.16.840.1.305723.3.579.2.983 1977 Unknown [id number] 2.16.840.1.825686.3.579.2.983 1977 Unknown [id number] 2.16.840.1.891899.3.579.2.983 1977 Unknown [id number] 2.16.840.1.980817.3.579.2.983 1959 Unknown [id number] Social History Date Type Detail Facility Start: 12-24-2018 End: 02-22-2024 Tobacco smoking status NHIS Never smoker [place], [place] Start: 12-24-2018 End: 03-21-2024 Alcohol intake No [place], [place] Start: 1975 Sex Assigned At Not on file [place] Start: 06-23-2019 End: 01-31-2024 Alcohol intake Current non-drinker of alcohol (finding) [place], [place] Start: 06-18-2019 History SDOH Financial 2 [facility] [employer] Work Phone: Start: 06-18-2019 End: 11-25-2020 History SDOH Transport Med 1 [employer] Work Phone: Exposure to SARS-CoV -2 (event) Unable to assess [employer], [facility] Start: 11-13-2019 End: 02-22-2024 Tobacco use and exposure Never used [employer] [facility] Start: 08-29-2021 End: 06-27-2022 Exposure to SARS-CoV-2 (event) Not sure [employer] [facility] Start: 11-25-2020 History SDOH Financial 5 [employer] Work Phone: Start: *[employer] Start: [employer] Start: 07-24-2023 End: 03-21-2024 History of Social function [employer] How hard is it for y ou to pay for the very basics like food, housing, medical care, and heating Not hard at all [facility] [employer] (I/We) worried [facility] (my/our) food would run out before (I/we) got money to buy more. Never true [facility] At any time in the p ast 12 months, were you homeless or living in senior care [including now]? No [facility] Start: 07-24-2023 Tobacco Comment Never even tried [facility] smoking consumption unknown [facility] Start: 01-23-2017 Gender identity Identifies as female gender (finding) [facility] How often to you hav e a drink containing alcohol? 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 We have [...] 2 diabetes mellitus without complication, unspecified whether fdc insulin use - LIPID PANEL W CALCULATED [...] PA-C Bariatric Surgery documented in this encounter [facility] 03-21-2024 History of Presen t illness Narrative Regarding Weight Gain: Abby Cabrera is a 48 y.o. y.o. female who presents today with the complaint of obesity. She states that she has had gradual weight gain and would like to have assistance with weight loss. She is up 5 lbs this month. 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 We have [...] 2 diabetes mellitus without complication, unspecified whether intermediate manager insulin use - LIPID PANEL W CALCULATED [...] PA-C Bariatric Surgery documented in this encounter [facility] 03-21-2024 Miscellaneous Notes Addended by: JANELL BALDWIN on: 03/22/2024 03:18 PM Modules accepted: Orders documented in this encounter [facility] 03-21-2024 Note Addended by: JANELL BALDWIN on: 03/22/2024 03:18 PM Modules accepted: Orders [facility] 03-21-2024 History of Presen t illness Narrative OUTPATIENT BARIATRIC POST-SX NUTRITION ASSESSMENT Referring Provider: Janell Baldwin PA-C Nutrition Assessment Anthropometrics: Ht Readings from Last 1 Encounters: 02/22/24 1.626 m (5' 4 ) Wt Readings from Last 10 Encounters: 03/21/24 (!) 146.7 kg (323 lb 8 oz) 02/22/24 (!) 144.6 kg (318 lb 12.8 oz) 01/23/24 (!) 147.6 kg (325 lb 6.4 oz) Longs body weight: 54.7 kg (120 lb 9.5 [...] calcium twice per day Meeting all bariatric SENIOR ENERGY CONSULTANT recommendations Nutrition-Related Hx: Allergies/Intolerances: Splenda Foods avoided for latter-day or other reasons: NA Current Supplements: Yes [...] Pt is ~19 years s/p RYGB in [place], [place]. Pt is experiencing weight regain post-op. [...] Licensed Dietitian 03/21/24 documented in this encounter [facility] 02-22-2024 History of Presen t illness Narrative Chief Complaint Patient presents with New Patient MWJosias new patient Patient here for Medical Weight Loss [place]: Abby Cabrera is a 48 y.o. y.o. [...] 2 diabetes mellitus without complication, unspecified whether fdc insulin use - COMPREHENSIVE METABOLIC PANEL; Future - HEMOGLOBIN A1C; Future Here today for medically managed weight loss therapy. 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 We have [...] and General Surgery documented in this encounter [facility] 02-01-2024 Hospital Discharg Pily Marsh MD - [...] cannot be sent through Care Everywhere.Abdominal Pain (Bruneian)UTI (Urinary Tract Infection): Female (Bruneian)documented in this encounter [facility] 01-23-2024 History of Presen t illness Narrative [...] a history of RYGB in 2004 in [place], [place]. Past Medical History: Diagnosis Date Anemia [...] Reactions Anesthesia S-I-40 [Propofol] Causes Blood clots Sheridan Opdasm-[id number]-[id number] Latex [Wound Dressing Adhesive] Rash and Swelling [...] Resource Strain: Low Risk (07/24/2023) Received from [facility] Overall Financial Resource Strain (CARDIA) Difficulty of Paying Living Expenses: Not hard at all Food Insecurity: No Food Insecurity (07/24/2023) Received from [facility] Hunger Vital Sign Worried About Running Out of Food in the Last Year: Never true Ran Out of Food in the Last Year: Never true Transportation Needs: Unknown (07/24/2023) Received from [facility] PRAPARE - Transportation Lack of Transportation [...] 2 diabetes mellitus without complication, unspecified whether intermediate manager insulin use Essential hypertension with Body mass [...] PM Bariatric Surgery documented in this encounter [facility] 06-27-2022 Hospital Discharg e instructions Surinder Mireles MD - 06/27/2022 2:44 PM EST Take your medications as prescribed. Follow-up with your neurologist in the next 2 to 3 days for reevaluation. Follow-up with your primary care physician as well. Return to the emergency department if you develop any new or worsening symptoms. 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 long-term goal 2: Pt will improve BLE strength grossly to 4 to 4+/5 for improved functional mobility. long-term goal 3: Pt will improve L shld strength to >/= 4 to 4+/5 for ease of lifting/carrying tasks. long-term goal 4: Pt will report >/= 50% improvement in pain and overall function to improve QOL. Patient goals : to get strength/endurance back Minutes Tracking: Time In: 1545 Time Out: 1623 Minutes: 38 Timed Code Treatment Minutes: 35 Minutes Sujit Aguirre, PT, DPT 11/08/2021 documented in this encounter JEANA RENATO [employer] Phone: 09-20-2021 History of Presen t illness Narrative [facility] Inpatient/Observation/Outpatient Rehabilitation Date: 09/20/2021 Patient Name: Abby Cabrera [] Inpatient Acute/Observation [] Outpatient : 1975 [] Pt no showed for scheduled appointment [] Pt refused/declined therapy at this time due to: [x] Pt cancelled due to: [] No Reason Given [x] Sick/ill [] Other: Therapist/Concrete Pipe Maker will attempt to see this patient, at our earliest opportunity. Zulema Vincent Date: 09/20/2021 [facility] encounter [facility] Phone: 08-06-2021 History of Presen t illness Narrative [facility] Inpatient/Observation/Outpatient Rehabilitation Date: 08/05/2021 Patient Name: Abby Cabrera [] Inpatient Acute/Observation [] Outpatient : 1975 [] Pt no showed for scheduled appointment [] Pt refused/declined therapy at this time due to: [x] Pt cancelled due to: [] No Reason Given [] Sick/ill [x] Other: Daughter is having surgery Therapist/Concrete Pipe Maker will attempt to see this patient, at our earliest opportunity. 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 Pt states she has fallen ~8 times [...] improve tolerance for strengthening and mobility exercises. 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 long-term goal 2: Pt will improve BLE strength grossly to 4 to 4+/5 for improved functional mobility. long-term goal 3: Pt will improve L shld strength to >/= 4 to 4+/5 for ease of lifting/carrying tasks. long-term goal 4: Pt will report >/= 50% improvement in pain and overall function to improve QOL. Patient goals : None stated Minutes Tracking: Time In: 1600 Time Out: 1641 Minutes: 41 Timed Code Treatment Minutes: 40 Minutes Donna Damon PT, DPT 07/16/2021 documented in this encounter [facility] Phone: 02-12-2021 Hospital Discharg Ebony Pa DO [...] for repeat evaluation. documented in this encounter [facility] Phone: 11-06-2020 History of Presen t illness Narrative [facility] Inpatient/Observation/Outpatient Rehabilitation Date: 11/06/2020 Patient Name: Abby Cabrera [x] Outpatient : 1975 [x] Pt no showed for scheduled appointment Pj Siddiqui PT, DPT Date: 11/06/2020 [facility] encounter [facility] Phone: 10-30-2020 History of Presen t illness Narrative [facility] Inpatient/Observation/Outpatient Rehabilitation Date: 10/30/2020 Patient Name: Abby Cabrera [x] Outpatient : 1975 [x] Pt no showed for scheduled appointment Pj Siddiqui PT, DPT Date: 10/30/2020 documented in this encounter [facility] [employer] Phone: 10-23-2020 Hospital Discharg Pily Marsh MD - 10/23/2020 Tylenol and/or Motrin as needed for pain. Use [place] in place of Tylenol for pain not controlled with Tylenol. Aumh-erj-pixtvqc Orajel or similar prior to cotton swab [...] sent through Care Everywhere.Tooth and Gum Pain (Bruneian)Insect Stings and Bites (Bruneian)documented in this encounter [facility] [place] Phone: 09-22-2020 History of Presen t illness Narrative [facility] Outpatient Physical Therapy Daily Note Patient: Abby Cabrera : 1975 [facility] #: [id number] Referring Practitioner: Stephanie Arredondo MD Referral Date : 08/17/20 Date: 09/22/2020 Diagnosis: Chronic migraines, G43.709 Treatment Diagnosis: Cervicogenic KO's, L shoulder impingement PT Insurance Information: [facility] Total # of Visits Approved: 18 [...] to decrease muscle tension and sensitivity -met 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 Minutes Tracking: Time In: 1430 Time Out: 1517 Minutes: 47 Anusha Torres PTA Date: 09/22/2020 documented in this encounter [facility] Phone: 09-18-2020 History of Presen t illness Narrative [facility] Outpatient Physical Therapy Daily Note Patient: Abby Cabrera : 1975 CSN #: [id number] Referring Practitioner: Stephanie Arredondo MD Referral Date : 08/17/20 Date: 09/18/2020 Diagnosis: Chronic migraines, G43.709 Treatment Diagnosis: Cervicogenic KO's, L shoulder impingement PT Insurance Information: [facility] Total # of Visits Approved: 18 [...] to decrease muscle tension and sensitivity -met superintendent container 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 Minutes Tracking: Time In: 1515 Time Out: 1600 Minutes: 45 Anusha Torres PTA Date: 09/18/2020 documented in this encounter [facility] Phone: 09-04-2020 History of Presen t illness Narrative [facility] Outpatient Physical Therapy Evaluation Date: 09/04/2020 Patient: Abby Cabrera : 1975 CSN #: [id number] Referring Practitioner: Stephanie Arredondo MD Referral Date : 08/17/20 Medical Diagnosis: Chronic migraines, G43.709 Treatment Diagnosis: Cervicogenic KO's, L shoulder impingement PT Insurance Information: [facility] Total # of Visits Approved: 18 [...] techniques to decrease muscle tension and sensitivity superintendent container terminal goals Time Frame for long-term goals : 6 weeks superintendent container terminal goal 1: Patient will be independent and compliant with a HEP superintendent container terminal goal 2: Patient will improve R cervical spine rotation to match L superintendent container terminal goal 3: Patient will report decreased neck pain to <6/10 at worst long-term goal 4: Patient will report 70% improvement in symptoms and overall function. Patient goals : Manage pain Minutes Tracking: Time In: 1315 Time Out: 1425 Minutes: 70 Timed Code Treatment Minutes: 66 Minutes Pj Siddiqui PT, DPT 09/04/2020 documented in this encounter [facility] Phone: Evaluation note Diagnosis Pain, dental- Primary Unspecified disorder of the teeth and supporting structures Insect bite of right upper arm, initial encounter documented in this encounter [facility] Phone: evaluation note* Diagnosis Polyneuropathy Unspecified hereditary and idiopathic peripheral neuropathy Hypocalcemia documented in this encounter [facility] Phone: evaluation note* Diagnosis Diarrhea, unspecified type- Primary Nonintractable headache, unspecified chronicity pattern, unspecified headache type Syncope and collapse documented in this encounter [facility] Phone: evaluation note* Diagnosis B12 deficiency Other B-complex deficiencies documented in this encounter [facility] Phone: evaluation note* Diagnosis Acute nonintractable headache, unspecified headache type- Primary documented in this encounter [facility] Phone: evaluation note* Diagnosis Acute UTI Urinary tract infection, site not specified documented in this encounter [facility]* Diagnosis Morbid obesity with BMI of 50.0-59.9, adult- Primary Type 2 diabetes mellitus without complication, unspecified whether fdc insulin use Essential hypertension Unspecified essential hypertension [facility] Diagnosis Abdominal pain, unspecified abdominal location- Primary Urinary tract infection without hematuria, site unspecified documented in this encounter [facility]* Diagnosis Morbid obesity with body mass index of 50 or higher- Primary WALTER (obstructive sleep apnea) Obstructive sleep apnea (adult) (pediatric) Type 2 diabetes mellitus without complication, unspecified whether intermediate manager insulin use documented [facility] this [facility] Diagnosis Nutritional counseling- Primary Morbid obesity with BMI of 50.0-59.9, adult [facility] Diagnosis Morbid obesity with body mass index of 50 or higher- Primary Type 2 diabetes mellitus without complication, unspecified whether fdc insulin use [facility] Diagnosis Morbid obesity with body mass index of 50 or higher- Primary Type 2 diabetes mellitus without complication, unspecified whether fdc insulin use [facility] Consultation (Routine) - New Request Specialty Diagnoses / Procedures Referred By Salome t Referred To Contact Sleep Medicine Diagnoses Morbid obesity with body mass index of 50 or higher WALTER (obstructive sleep apnea) Janell Baldwin PA-C [address] [place] [address] Jenny Merritt SMOKING PIPE MAKER-CHILD DEVELOPMENT TEACHER [address] [place] [address] Referral ID Status Reason Start Date Expiration Date V isits Requested Visits Authorized [id number] New Request 02/22/2024 03/18/2025 1 1 [facility] Discharge Instructions * Instructions* Abby Cordova PA-C - 12/24/2018 Call to arrange follow-up with primary care this week. * Attachments The following attachments cannot be sent through Care Everywhere. * Sore Throat (Bruneian) documented in this encounter* Attachments The following attachments cannot be sent through Care Everywhere. * Chest Pain (Bruneian) documented in this encounter* Attachments The following attachments cannot be sent through Care Everywhere. * Viral Infections (Bruneian) * Coronavirus Disease (COVID-19): General Info (Bruneian) documented in this encounter* Instructions* Emil Mays [...] sent through Care Everywhere. * Tawana Dermatitis (Bruneian) * Back: Strain (Bruneian) documented in this encounter* Attachments The following attachments cannot be sent through Care Everywhere. * URI (Upper Respiratory Infection) (Bruneian) * Parotitis (Bruneian) documented in this encounter* Instructions* Pily Mariscal MD - 06/28/2020 Tylenol and or Motrin as needed for any pain. May use [place] in place of Tylenol for pain not controlled with [id number] medications. Continue your current medications as prescribed heat or ice as desired for comfort. With a primary care physician for evaluation. Seek medical attention for anyacute concerns. * Attachments The following attachments cannot be sent through Care Everywhere. * Contusion (Bruneian) documented in this encounter* Attachments The following attachments cannot be sent through Care Everywhere. * Tonsillitis (Bruneian) documented in this encounter Assessments Diagnosis Acute [...] FoundDocuments on File Type Date Recorded Patient Software Developer Intern Expl anation Advance Directives and Living Will Power of Fire Control Assistant Latest Code Status on File Code Status Date Activated Date Inactivated Comments Full Code 03/19/2018 8:00 AM 03/20/2018 3:23 PM Full Code 01/23/2017 7:49 PM 02/03/2017 5:05 PM Documents on File Type Date Recorded Patient Software Developer Intern Expl anation Advance Directives and Living Will Power of Fire Control Assistant Latest Code Status on File Code Status Date Activated Date Inactivated Comments Full Code 03/19/2018 8:00 AM 03/20/2018 3:23 PM Full Code 01/23/2017 7:49 PM 02/03/2017 5:05 PM Documents on File Type Date Recorded Patient Software Developer Intern Expl anation ACP-Advance Directive ACP-Power of Fire Control Assistant Healthcare Agents on File Name Relationship Healthcare [...] Name Relationship Healthcare Agent Relationshi p Communication nIo Gore Parent Primary Decision Maker Healthcare Agents on File Name Relationship Healthcare Agent Relationshi p Communication Ino Gore Parent Primary Decision Maker Healthcare Agents on File Name Relationship Healthcare Agent Relationshi p Communication Ino Gore Parent Primary Decision Maker Documents on File Type Date Recorded Patient Software Developer Intern Expl anation ACP-Advance Directive ACP-Power of Fire Control Assistant Healthcare Agents on File Name Relationship Healthcare [...] Study with PAP Titration Brianna Verde W, SMOKING PIPE MAKER - CHILD DEVELOPMENT TEACHER [address] [place] [address] Specialty Diagnoses / Procedures Referred By Salome t Referred To Contact General Surgery Diagnoses Morbid obesity with BMI of 50.0-59.9, adult Type 2 diabetes mellitus without complication, unspecified whether intermediate manager insulin use Essential hypertension Wayne Joseph, DO [address] [place] [address] Janell Baldwin, KEI [address] [place] [address] Referral ID Status Reason Start Date Expiration Date V isits Requested Visits Authorized [id number] New Request 01/23/2024 02/16/2025 1 1 Additional [...] type Procedures Brenda Calhoun MD [address] [place] [address] [facility] [address] [place] [address] Reason Comments Abdominal Pain left and right [...] Procedures Referred By Contact Referred To Contact [facility] Diagnoses WALTER (obstructive sleep apnea) Procedures Sleep Study with PAP Titration Brianna Verde, SMOKING PIPE MAKER - CHILD DEVELOPMENT TEACHER [address] [place] [address] Reason Comments Fall patient fell last ni [...] shoulder pain Chronic neck pain Brianna Verde, SMOKING PIPE MAKER - CHILD DEVELOPMENT TEACHER [address] [place] [address] [facility] Physical Therapy [address] [place] [address] Referral ID Status Reason Start Date Expiration Date V isits Requested Visits Authorized [id number] Open Specialty Services Required 05/21/2021 05/21/2022 1 [...] 2 diabetes mellitus without complication, unspecified whether fdc insulin use Essential hypertension Wyane Joseph, [address] [place] [address] Janell Baldwin PA-C [address] [place] [address] Referral ID Status Reason Start Date Expiration Date V isits Requested Visits Authorized [id number] New Request 01/23/2024 02/16/2025 1 1 Reason Comments Nutrition Consultation Specialty Diagnoses / Procedures Referred By Salome walsh Referred To Contact Registered Dietitian / Nutrition and Dietetics Diagnoses mwl initial Procedures NEW PATIENT - GEOVANNI Janell Baldwin PA-C [address] [place] [address] Jean Paul Almanzar, RD [address] [place] [address] Referral ID Status Reason Start Date Expiration Date V isits Requested Visits Authorized [id number] Pending Review 03/21/2024 04/15/2025 1 1 Reason Comments Follow-up [facility] INFORMATION SOURCE (unrecogn ized section and content) DATE CREATED AUTHOR 07/18/2019 [facility] DATE CREATED AUTHOR AUTHOR'S ORGANIZ ATION 01/18/2021 [facility] DATE CREATED AUTHOR AUTHOR'S ORGANIZ ATION 09/08/2023 [facility] DATE CREATED AUTHOR AUTHOR'S ORGANIZ [...] Care Teams (unrecognized sec tion and content) Belt Builder Relationship Specialty Start Date End Date Might, Brianna Chavez APRN CHILD DEVELOPMENT TEACHER PCP - General Nurse Practitioner 06/16/16 Belt Builder Relationship Specialty Start Date End Date Might, Brianna Chavez APRN - CHILD DEVELOPMENT TEACHER PCP - General Nurse Practitioner 06/16/16 Belt Builder Relationship Specialty Start Date End Date Might, Brianna Chavez APRN CHILD DEVELOPMENT TEACHER PCP - General Nurse Practitioner 06/16/16 Belt Builder Relationship Specialty Start Date End Date Might, Brianna Chavez APRN - CHILD DEVELOPMENT TEACHER PCP - General Nurse Practitioner 06/16/16 Belt Builder Relationship Specialty Start Date End Date Might, Brianna Chavez APRN [facility] PCP - General Nurse Practitioner 06/16/16 Belt Builder Relationship Specialty Start Date End Date Might, Brianna Chavez APRN [facility] PCP - General Nurse Practitioner 06/16/16 Belt Builder Relationship Specialty Start Date End Date Might, Brianna Chavez APRN - CHILD DEVELOPMENT TEACHER PCP - General Nurse Practitioner 06/16/16 Belt Builder Relationship Specialty Start Date End Date Might, Brianna Chavez APRN [facility] PCP - General Nurse Practitioner 06/16/16 Belt Builder Relationship Specialty Start Date End Date Might, Brianna Chavez APRN [facility] PCP - General Nurse Practitioner 06/16/16 Belt Builder Relationship Specialty Start Date End Date Might, Brianna Chavez APRN [facility] PCP - General Nurse Practitioner 06/16/16 FOR [...] BE BASED ON THE PRIMARY CLINICAL RECORDS. [facility] [employer] [facility]. provides no warranty or guarantee of the accuracy or completeness of information in this document.
--- NOTE | 2024-06-08 10:34 | ED_ITS ---
HPI - Nausea/Vomiting/Diarrhea General Chief complaint: Nausea/Vomiting/Diarrhea Stated complaint: headache, diarrhea Time Seen by Provider: 06/08/24 10:27 Source: patient Mode of arrival: walk-in Limitations: no limitations History of Present Illness HPI Narrative: Patient presents with nausea, vomiting and diarrhea that began yesterday. She also has a headache. She had a Colton-en-Y surgery and is concerned about getting dehydrated. She tried to take oral dissolvable Zofran last night but continued to have nausea and vomiting. She has been unable to keep anything down for about 12 hours. She also admitted to some dark and foul-smelling urine. No flank pain or abdominal pain. No chest pain or cough. Headache is associated with some aura, which is atypical for her. But the pain is not severe, thunderclap, worst of her life to suggest acute SAH. Related Data Home Medications ?Medication ?Instructions ?Recorded ?Confirmed fluoxetine 10 mg capsule 10 mg PO BEDTIME 06/08/24 06/08/24 lurasidone 80 mg tablet 80 mg PO DAILY 06/08/24 06/08/24 propranolol 20 mg tablet 20 mg PO BID 06/08/24 06/08/24 tizanidine 4 mg tablet 4 mg PO BID 06/08/24 06/08/24 venlafaxine 150 mg 150 mg PO DAILY 06/08/24 06/08/24 capsule,extended release 24 hr Previous Rx's ?Medication ?Instructions ?Recorded ondansetron 4 mg disintegrating 4 mg PO Q6H PRN nausea and 06/08/24 tablet vomiting #20 tabs Allergies Allergy/AdvReac Type Severity Reaction Status Date / Time bee venom protein (honey bee) Allergy Severe Anaphylaxis Verified 06/08/24 10:27 ibuprofen AdvReac Severe due to Verified 06/08/24 10:27 surgery PFSH PFS Social History Smoking status: Never smoker Little interest or pleasure in doing things: not at all Feeling down, depressed, or hopeless: not at all Exam Narrative Exam Narrative: Nurses notes and vital signs reviewed and patient is not hypoxic. afebrile General: Well-appearing and in no apparent distress. Obese Skin: Warm, dry, no pallor noted. Head: Normocephalic, atraumatic. Neck: Supple, non-tender. No meningismus. Eye: Pupils are equal, round and EOMI. No scleral icterus. Ears, Nose, Mouth, and Throat: Oral mucosa is dry Cardiovascular: Borderline tachycardia at 98 bpm. Respiratory: No accessory muscle use or respiratory distress. Lungs are clear to auscultation, no wheezing, rales or rhonchi Back: No CVA tenderness Musculoskeletal: normal ROM GI: Obese. Abdomen is soft, non-distended. Normal bowel sounds. No tenderness to palpation. No rebound, guarding, or rigidity noted. Neurological: A&O x4. No cranial nerve dysfunction observed. No truncal ataxia. Moves all extremities. Sensation intact. Psychiatric: Cooperative and interactive. Normal mood and affect. Constitutional Vital Signs, click to edit/add: Last Vital Signs Temp 98.6 F 06/08/24 10:21 Pulse 88 06/08/24 12:05 Resp 20 06/08/24 12:05 BP 157/86 H 06/08/24 12:05 Pulse Ox 99 06/08/24 12:05 O2 Del Method Room Air 06/08/24 12:05 Course Vital Signs Vital signs: Vital Signs Temperature 98.6 F 06/08/24 10:21 Pulse Rate 102 H 06/08/24 10:21 Respiratory Rate 20 06/08/24 10:21 Blood Pressure 154/91 H 06/08/24 10:21 Pulse Oximetry 95 06/08/24 10:21 Oxygen Delivery Method Room Air 06/08/24 10:21 Temperature 98.6 F 06/08/24 10:21 Pulse Rate 88 06/08/24 12:05 Respiratory Rate 20 06/08/24 12:05 Blood Pressure 157/86 H 06/08/24 12:05 Pulse Oximetry 99 06/08/24 12:05 Oxygen Delivery Method Room Air 06/08/24 12:05 MDM - Nausea/Vomiting/Diarrhea MDM Narrative Medical decision making narrative: The patient already attempted to take oral dissolvable Zofran at home without any improvement. I ordered peripheral IV to be established and blood drawn and sent for testing. I also ordered urine to be sent for testing since the patient informing that she had dark and foul-smelling urine. She was given 1 L of normal saline IV with Phenergan and Zofran. Nausea and vomiting stopped after ED treatment but her headache was unchanged. She was given IV Dilaudid for the headache and it substantially decreased her headache. Pt discharged home with prescription for odt zofran and instructions to maintain clear liquid diet until the vomiting subsides for at least 12 hours, then start soft bland diet until diarrhea resolves. . Lab Data Attestation: I reviewed the patient's lab results. Labs: Lab Results 06/08/24 06/08/24 Range/Units 10:45 11:00 WBC 6.8 (4.0-11.0) 10^3/uL RBC 4.22 (4.20-5.40) 10^6/uL Hgb 12.1 (12.0-16.0) g/dL Hct 36.9 (36.0-48.0) % MCV 87.4 (81.0-99.0) fL MCH 28.7 (26.7-34.0) pg MCHC 32.8 (29.9-35.2) g/dL RDW 13.2 (11.0-15.0) % Plt Count 263 (150-450) 10^3/uL MPV 11.1 (9.5-13.5) fL Seg Neuts % (Manual) 86.0 H (43.0-75.0) Band Neutrophils % 2.0 (0-5) % Lymphocytes % (Manual) 6.0 L (20.5-60.0) % Monocytes % (Manual) 6.0 (1.7-12.0) % Eosinophils % (Manual) 0.0 L (0.9-7.0) % Basophils % (Manual) 0.0 L (0.2-2.0) % Neutrophils # (Manual) 5.84 (1.4-6.5) 10^3/uL Band Neutrophils # 0.1 (0.0-0.3) 10^3/uL Lymphocytes # (Manual) 0.40 L (1.20-3.80) 10^3/uL Monocytes # (Manual) 0.40 (0.30-0.80) 10^3/uL Eosinophils # (Manual) 0.00 (0.00-0.70) 10^3/uL Basophils # (Manual) 0.00 (0.00-0.10) 10^3/uL Sodium 137 (136-145) mmol/L Potassium 3.4 L (3.5-5.1) mmol/L Chloride 104 (98-107) mmol/L Carbon Dioxide 21.2 (21.0-32.0) mmol/L Anion Gap 15.2 BUN 12.0 (7.0-18.0) mg/dL Creatinine 0.87 (0.55-1.02) mg/dL Est GFR ( Amer) >60 (>=60 mL/min/1.73m^2) Est GFR (Non-Af Amer) >60 (>=60 mL/min/1.73m^2) BUN/Creatinine Ratio 13.8 Glucose 105 (74-106) mg/dL Calcium 8.5 (8.5-10.1) mg/dL Total Bilirubin 0.4 (0.2-1.0) mg/dL AST 15 (15-37) U/L ALT 18 (14-59) U/L Alkaline Phosphatase 90 (46-116) U/L Total Protein 7.3 (6.4-8.2) g/dL Albumin 3.3 L (3.4-5.0) g/dL Globulin 4.0 g/dL Albumin/Globulin Ratio 0.8 Lipase 15.0 L (16.0-77.0) U/L Urine Color Yellow (YELLOW) Urine Clarity Clear (CLEAR) Urine pH 6.0 (5.0-9.0) Ur Specific [place] 1.025 (1.005-1.025) Urine Protein Negative (NEG/TRACE) mg/dL Urine Glucose (UA) Negative (NEGATIVE) mg/dL Urine Ketones Negative (NEGATIVE) mg/dL Urine Occult Blood Trace-i (NEGATIVE) Urine Nitrite Negative (NEGATIVE) Urine Bilirubin Negative (NEGATIVE) Urine Urobilinogen 0.2 (0.2-1.0) EU/dL Ur Leukocyte Esterase Negative (NEGATIVE) Urine RBC 0-2 (0-2) #/HPF Urine WBC 0-2 A (NONE SEEN) #/HPF Ur Squamous Epith Cells Moderate A (NONE/RARE) #/LPF Ur Transition Epith Cell Rare A (NONE SEEN) #/LPF Urine Crystals None seen (None Seen) #/HPF Urine Bacteria Trace A (NONE SEEN) #/HPF Urine Casts None seen (NONE SEEN) #/LPF Urine Mucus Small A (NONE SEEN) Ur Culture Indicated? No Discharge Plan Discharge Chief Complaint: Nausea/Vomiting/Diarrhea Clinical Impression: Gastroenteritis, Headache Patient Disposition: Home, Self-Care Time of Disposition Decision: 11:58 Prescriptions / Home Meds: New ondansetron 4 mg tablet,disintegrating 4 mg PO Q6H PRN (Reason: nausea and vomiting) Qty: 20 0RF No Action venlafaxine 150 mg capsule,extended release 24hr 150 mg PO DAILY tizanidine 4 mg tablet 4 mg PO BID propranolol 20 mg tablet 20 mg PO BID lurasidone 80 mg tablet 80 mg PO DAILY fluoxetine 10 mg capsule 10 mg PO BEDTIME Print Language: Upper Sorbian Instructions: Gastroenteritis (ED), General Headache (ED) Referrals: BRIANNA MITCHELL NP [Primary Care Provider] - 1 week
[2024-06-08] MEDS: 0.9 % SODIUM CHLORIDE 1,000 ML 999 ML IV (10:58)
[2024-06-08] MEDS: ONDANSETRON PF 4 MG/2 ML VIAL IV (10:58)
[2024-06-08 11:01] LABS: Hematocrit 36.9 % (36.0-48.0); Hemoglobin 12.1 g/dL (12.0-16.0); Mean Corpuscular HGB Conc 32.8 g/dL (29.9-35.2); Mean Corpuscular Hemoglobin 28.7 pg (26.7-34.0); Mean Corpuscular Volume 87.4 fL (81.0-99.0); Mean Platelet Volume 11.1 fL (9.5-13.5); Platelet Count 263 10^3/uL (150-450); Red Blood Count 4.22 10^6/uL (4.20-5.40); Red Cell Distribution Width 13.2 % (11.0-15.0); White Blood Count 6.8 10^3/uL (4.0-11.0)
[2024-06-08] MEDS: PROMETHAZINE HCL 12.5 MG in 0.9 % SODIUM CHLORIDE 50 ML 202 MG IV (11:01)
[2024-06-08 11:21] LABS: Alanine Aminotransferase 18 U/L (14-59); Albumin Globulin Ratio 0.8; Albumin Level 3.3 g/dL (3.4-5.0); Alkaline Phosphatase 90 U/L (46-116); Anion Gap 15.2; Aspartate Amino Transferase 15 U/L (15-37); BUN Creatinine Ratio 13.8; Bilirubin Total 0.4 mg/dL (0.2-1.0); Calcium 8.5 mg/dL (8.5-10.1); Carbon Dioxide 21.2 mmol/L (21.0-32.0); Chloride 104 mmol/L (98-107); Estimated GFR (African America >60 (>=60 mL/min/1.73m^2); Estimated GFR (Non-African Ame >60 (>=60 mL/min/1.73m^2); Glucose 105 mg/dL (74-106); Potassium 3.4 mmol/L (3.5-5.1); Sodium 137 mmol/L (136-145); Total Protein 7.3 g/dL (6.4-8.2)
[2024-06-08 11:22] LABS: Band Neutrophils Absolute 0.1 10^3/uL (0.0-0.3); Segmented Neut Absolute Manual 5.84 10^3/uL (1.4-6.5)
[2024-06-08 11:27] LABS: Bilirubin Urine NEGATIVE (NEGATIVE); Blood Urine TRACE-I (NEGATIVE); Clarity Urine CLEAR (CLEAR); Color Urine YELLOW (YELLOW); Glucose Urine UA NEGATIVE (NEGATIVE); Ketones Urine NEGATIVE (NEGATIVE); Leukocyte Esterase Urine NEGATIVE (NEGATIVE); Nitrite Urine NEGATIVE (NEGATIVE); Protein Urine NEGATIVE (NEG/TRACE); Specific Gravity Urine 1.025 (1.005-1.025); Urobilinogen Urine 0.2 EU/dL (0.2-1.0)
[2024-06-08 11:38] LABS: Bacteria Urine TRACE #/HPF (NONE SEEN); Cast Seen? NONE SEEN #/LPF (NONE SEEN); Crystals Seen? None Seen #/HPF (None Seen); Mucus Urine SMALL (NONE SEEN); RBC Urine 0-2 #/HPF (0-2); Squamous Epithelial Cell Urine MODERATE #/LPF (NONE/RARE); Transitional Epi Cells Urine RARE #/LPF (NONE SEEN); Urine Culture Indicated NO; WBC Urine 0-2 #/HPF (NONE SEEN)
[2024-06-08] MEDS: HYDROMORPHONE HCL 1 MG/ML CARTRIDGE IV (12:04)
[2024-06-08 12:05] VITALS: BP 157/86; PULSE 88; O2SAT 99
== END 2024-06-08 13:20 | disposition home or self-care (01) ==
PROVIDERS: Emergency Provider Emergency Medicine
DX: K52.9 Noninfective gastroenteritis and colitis, unspecified (principal); R51.9 Headache, unspecified; Z98.84 Bariatric surgery status
CPT/HCPCS: 36415; 80053; 81001; 83690; 85007; 85027; 96361; 96365; 96375; 99284; J1171; J2405; J2550

== ENCOUNTER 2024-10-28 22:39 | Emergency (ER) | payer OTHER, SELFPAY ==
[2024-10-28 22:45] VITALS: BP 152/100; PULSE 96; TEMP 36.7; O2SAT 97; BMI 53.6
--- OUTSIDE RECORDS SUMMARY | 2024-10-28 22:47 | XMS_ITS | CCD ---
Author Organization [facility] Inform ion Partnership [facility] Care Team Providers Care Landscape Specialist Name Role Phone Brianna Verde Primary Care Provider BRENDA RIOS Referring Unavailable MIGHTBRIANNA Primary Care Unavailable MightBrianna Primary Care Provider [phone] MightBrianna Primary Care Provider [phone] MightBrianna Primary Care Provider [phone] Might ETHNOGRAPHER - HOTSHOT SUPERINTENDENTBrianna Primary Care Provider Kaye Kruse Primary Care Physician DR CRAIG Cantor Admitting Unavailable ERNIE FLORES Consulting Unavailable DR CRAIG BUSTILLO Attending Unavailable PING OWENS Consulting Unavailable Might ETHNOGRAPHER - Brianna MORA Primary Care Provider Might ETHNOGRAPHER - HOTSHOT SUPERINTENDENTBrianna Primary Care Provider Might ETHNOGRAPHER - HOTSHOT SUPERINTENDENTBrianna Primary Care Provider Might ETHNOGRAPHER - HOTSHOT SUPERINTENDENTBrianna Primary Care Provider Nithin Zee Attending Unavailab le Nithin Zee Admitting Unavailab le Unavailable Primary Care Provider Unavailabl e Might ETHNOGRAPHER - HOTSHOT SUPERINTENDENTBrianna Primary Care Provider MIGHTBRIANNA Primary Care Unavailable MIGHTBRIANNA Primary Care Unavailable JESSICA CHAVES Attending Unavailable MIGHTBRIANNA Primary Care Unavailable JEN HELMS Referring Unavailable MIGHTBRIANNA Primary Care Unavailable BRADLY MCCAIN Referring Unavailable MIGHTBRIANNA Primary Care Unavailable MIGHT, BRIANNA W Primary Care Unavailable AL-NSOUR, MOHAMMAD A Referring Unavailable AL-NSOUR, MOHAMMAD A Referring Unavailable MIGHT, BRIANNA W Primary Care Unavailable MIGHT, BRIANNA W Primary Care Unavailable MIGHT, BRIANNA W Referring Unavailable PATRICIATELLOFLORA BOBBY Referring Unavailable MIGHT, BRIANNA W Primary Care Unavailable CARTERWILLISKALE J Attending Unavailable MIGHT, BRIANNA W Primary Care Unavailable JOVAN ALBARRAN Attending Unavailable MIGHT, BRIANNA W Primary Care Unavailable WAYNE JOSEPH Referring Unavailable SIGALA, JANELL L Attending Unavailable WAYNE JOSEPH Attending Unavailable SELF, SELF Referring Unavailable SIGALA, RAYGAN L Attending Unavailable SIGALA, RAYGAN L Referring Unavailable JEAN PAUL ALMANZAR Attending Unavailable SIGALA, RAYGAN L Referring Unavailable SIGALA, RAYGAN L Referring Unavailable SIGALA, RAYGAN L Attending Unavailable MIGHT, BRIANNA W Referring Unavailable MIGHT, BRIANNA W Primary Care Unavailable SURAJ OLSON Referring Unavailable MIGHT, BRIANNA W Primary Care Unavailable Allergies Allergy Classification Reported Allergen(s) Allergy Type Date of Onset Reaction(s) Facility Bee/Wasp/Ant Venom (8 sources) bee venom Substance Allergy 7 Anaphylaxis [facility] Latex (8 sources) Latex Substance Allergy 4 Hives, Itching, Swelling [facility] Saccharin (7 sources) Saccharin Drug Allergy 8 Other (See Comments) [employer]: (20 sources) bee venom Propensity to adverse reactions to drug 7 Anaphylaxis, Swelling [facility] [place] ([place] sources) Latex Propensity to adverse reactions to drug 4 [facility], [facility]ching, [facility]elling [facility] [place] ([facility] sources) Saccharin Drug Allergy 8 Other (See Comments) [employer] [facility] (20 sources) Aspartame And Phenylalanine Propensity to adverse reactions to drug 8 Other (See Comments) [employer] (20 sources) Flavoring Agent Propensity to adverse reactions to drug 8 Other (See Comments), Nausea and [facility]omiting [facility] [employer] (20 sources) Sucralose Propensity to adverse reactions to drug 8 Other (See Comments) [employer] [email or web address] [place] (1 source) Latex Drug allergy (disorder) 1 [facility] (2 sources) Ibuprofen Drug Allergy 3 [facility] (5 sources) Propofol Drug Allergy 4 [employer] [facility] (5 sources) Wound Dressing Adhesive Propensity to adverse reactions to drug 4 Rash, Swelling [facility] Medications Current Medications Medication Drug Class(es) [...] pain 10 tablet 0 04/07/2019 04/10/2019 Active [id number] 200 actuat albuterol 0.09 mg/actuat metered dose [...] 0 04/04/2020 04/14/2020 Active Blood Pressure Monitor [facility] (2 sources) Start: 07-21-2022 Blood Pressure Monitor [facility] Indications: Transient elevated blood pressure 1 each by Does not apply route daily 1 each 07/21/2022 Active Start: 07-21-2022 Blood Pressure Monitor [facility] Indications: Transient elevated blood pressure 1 each [...] every week vitamin D (ERGOCALCIFEROL) 1.25 MG (31193 UT) CAPS capsule Take 1 capsule by mouth once a week 12 capsule 1 10/01/2019 Active Start: 07-18-2019 take 1 capsule by mo ut every week vitamin D (ERGOCALCIFEROL) 1.25 MG (67423 UT) CAPS capsule Take 1 capsule by [...] pain) 10 each 5 11/25/2020 Active Start: 06-11-2020 Nerve Stimulat or (TENS THERAPY REPLACE BACK PADS) MISC Indications: Chronic bilateral low back pain without sciatica 1 each by Does not apply route as needed (back pain) 10 each 5 06/11/2020 Active nystatin 100 unt/mg topical ointment (18 sources) Polyene Antifungal Start: 07-24-2023 nystatin (M YCOSTATIN) 707830 UNIT/GM ointment Apply topically 2 times daily. 30 g 07/24/2023 Active Start: 01-03-2022 nystatin (MYCO STATIN) 244633 UNIT/GM ointment Indications: Candidal intertrigo Apply topically 2 times daily. 30 g 0 01/03/2022 Active Start: 11-25-2020 nystatin (MYCO STATIN) 793523 UNIT/GM cream Apply topically 2 times daily. 30 g 0 11/25/2020 Active Start: 11-03-2019 nystatin (MYCO STATIN) 307546 UNIT/GM cream Apply topically 2 times daily. [...] (Dose adjustment (suppress cancel msg)) polymyxin b 59184 unt/ml / trimethoprim 1 mg/ml ophthalmic solution (1 source) Dihydrofolate Reductase Inhibitor Antibacterial, Polymyxin-class Antibacterial Start: 06-20-2022 End: 06-30-2022 take 1 drop(s) into the eye(s) every four hours trimethoprim-polymyxin b (POLYTRIM) 52586-9.1 UNIT/ML-% ophthalmic solution Place 1 drop into [...] 3 ML Misc (5 sources) Tens Unit [facility] (17 sources) Start: 11-25-2020 Tens Unit MIS Indications: Osteoarthritis of spine, unspecified spinal osteoarthritis complication status, unspecified spinal region by Does not apply route 1 each 0 11/25/2020 Active Start: 11-25-2020 Tens Unit MIS Indications: Osteoarthritis of spine, unspecified spinal osteoarthritis complication status, unspecified spinal region , Chronic bilateral low back pain without sciatica by Does not apply route 1 each 0 11/25/2020 Active Start: 06-11-2020 Tens Unit [facility] Indications: Chronic bilateral low back pain without [...] 07/26/2018 Active take 1 capsule by mo [facility] twice daily as needed tizanidine 4 [...] Start: 07-26-2018 take 1 capsule by mo [facility] once daily venlafaxine (EFFEXOR XR) 150 MG extended release capsule Indications: Anxiety and depression Take 1 capsule by mouth daily 90 capsule 3 07/26/2018 Active Start: 02-06-2018 take 1 capsule by mo ut once daily venlafaxine (EFFEXOR XR) 75 MG extended release capsule Indications: Anxiety and depression take 1 capsule by mouth once daily TAKE WITH VENLAFAXINE 150 MG FOR A TOTAL DOSE OF 225 MGS 90 capsule 3 02/06/2018 Active take 1 capsule by mo [facility] twice daily venlafaxine 150 MG Cap [...] conditions (not mental disorders or infectious disease) (2 sources) Encounter for other screening for malignant neoplasm of breast; Translations: [Encounter for screening for cardiovascular disorders] Onset: 11-21-2023 Episodic Other upper respiratory infections [...] Translations: [Scabies] Onset: 03-20-2018 03-20-2018 Episodic Other lower respiratory disease (1 source) Hemoptysis; Translations: [Hemoptysis] Onset: 06-22-2024 Episodic Other non-traumatic joint disorders (3 sources) [...] Test Name Value Interpretation Reference Range Facility COMPREHENSIVE METABOLIC PANE [facility] 10-18-2024 Albumin [Mass/Vol] 4.2 g/dL Normal 3.2-5.3 [facility] Comment on above: Performed By: #### C MP #### [facility] ([facility]) [address] [place] [address] VIR ALP [Catalytic activity/Vol] 86 U/L Normal 39-130 [facility] Comment on above: Performed By: #### C MP #### [facility] ([facility]) [address] [place] [address] VIR ALT [Catalytic activity/Vol] 6 U/L Normal <=31 [facility] Comment on above: Performed By: #### C MP #### [facility] ([facility]) [address] [place] [address] VIR Anion gap [Moles/Vol] 13 mmol/L Normal 5-15 [facility] Comment on above: Performed By: #### C MP #### [facility] ([facility]) [address] [place] [address] VIR AST [Catalytic activity/Vol] 18 U/L Normal <=41 [facility] Comment on above: Performed By: #### C MP #### [facility] ([facility]) [address] [place] [address] VIR Bilirubin [Mass/Vol] 0.3 mg/dL Normal 0.3-1.2 [facility] Comment on above: Performed By: #### C MP #### [facility] ([facility]) [address] [place] [address] VIR Calcium [Mass/Vol] 8.6 mg/dL Normal 8.5-10.5 [facility] Comment on above: Performed By: #### C MP #### [facility] ([facility]) [address] [place] [address] VIR Chloride [Moles/Vol] 106 mmol/L Normal 98-109 [facility] Comment on above: Performed By: #### C MP #### [facility] ([facility]) [address] [place] [address] VIR CO2 [Moles/Vol] 19 mmol/L Low 22-32 [facility] Comment on above: Performed By: #### C MP #### [facility] ([facility]) [address] [place] [address] VIR Creatinine [Mass/Vol] 0.69 mg/dL Normal 0.40-1.00 [facility] Comment on above: Result Comment: METH OD TRACEABLE TO IDMS STANDARD Performed By: #### C MP #### [facility] ([facility]) [address] [place] [address] VIR EGFR (CKD-EPI) NON-RACE DEPENDENT >^90 Normal >=60 [facility] Comment on above: Result Comment: Repo rted eGFR is based on the CKD-EPI 2020 equation that does not use a race coefficient. Performed By: #### C MP #### [facility] ([facility]) [address] [place] [address] VIR Glucose [Mass/Vol] 90 mg/dL Normal 65-99 [facility] Comment on above: Performed By: #### C MP #### [facility] ([facility]) [address] [place] [address] VIR Potassium [Moles/Vol] 4.1 mmol/L Normal 3.5-5.0 [facility] Comment on above: Performed By: #### C MP #### [facility] ([facility]) [address] [place] [address] VIR Protein [Mass/Vol] 7.3 g/dL Normal 6.0-8.0 [facility] Comment on above: Performed By: #### C MP #### [facility] ([facility]) [address] [place] [address] VIR Sodium [Moles/Vol] 138 mmol/L Normal 134-146 [facility] Comment on above: Performed By: #### C MP #### [facility] ([facility]) [address] [place] [address] VIR Urea nitrogen [Mass/Vol] 10 mg/dL Normal 5-23 [facility] Comment on above: Performed By: #### C MP #### [facility] ([facility]) [address] [place] [address] VIR HEMOGLOBIN A1Con 10-18-2024 Glucose [Mass/Vol] 91 mg/dL Normal [facility] Comment on above: Performed By: #### H A1C #### [facility] ([facility]) [address] [place] [address] VIR HbA1c (Bld) [Mass fraction] 4.8 % Normal 4.4-5.6 [facility] Comment on above: Result Comment: ADA Guidelines Result HgbA1c Normal : less than 5.7 % Prediabetes : 5.7 % to 6.4 % Diabetes : > 6.4 % Use with caution in patients with abnormal hemoglobin variants as the half-life of red blood cells and in vivo glycation rates are affected. Performed By: #### H A1C #### [facility] ([facility]) [address] [place] [address] VIR HIV 1 AND 2 AB/AG SCREEN (P2 4 AG)on 10-18-2024 HIV 1 AND 2 AB/AG SCREEN Non-Reactive Normal Non-Reactive [facility] Comment on above: Order Comment: This information has been disclosed to you from confidential records protected from disclosure by state law. You shall make no further disclosure of this information without the specific, written and informed release of the individual to whom it pertains, or as otherwise permitted by state law. A general authorization for the release of medical or other information is not sufficient for the purpose of the release of HIV test results or diagnoses. Performed By: #### H IV4 #### [facility] ([facility]) [address] [place] [address] VIR LIPID PROFILEon 10-18-2024 Cholesterol [Mass/Vol] 173 mg/dL Normal 150-200 [facility] Comment on above: Performed By: #### L IPR #### [facility] ([facility]) [address] [place] [address] VIR Cholesterol in HDL [Mass/Vol] 43 mg/dL Normal >39 [facility] Comment on above: Result Comment: HDL <40 mg/dL - High Risk HDL > or = 40mg/dL- Desirable HDL >60 mg/dL - Negative Risk Performed By: #### L IPR #### [facility] ([facility]) [address] [place] [address] VIR Cholesterol in LDL [Mass/Vol] 110 mg/dL Normal <130 [facility] Comment on above: Result Comment: LDL <100 mg/dL - Desirable LDL >160 mg/dL - High Risk Performed By: #### L IPR #### [facility] ([facility]) [address] [place] [address] VIR CHOLESTEROL:HDL 4.0 Normal 1.0-5.0 [facility] Comment on above: Performed By: #### L IPR #### [facility] ([facility]) [address] [place] [address] VIR Triglyceride [Mass/Vol] 98 mg/dL Normal 27-150 [facility] Comment on above: Performed By: #### L IPR #### [facility] ([facility]) [address] [place] [address] VIR VERY LOW LIPOPROTEIN 20 mg/dL Normal 0-30 [facility] Comment on above: Performed By: #### L IPR #### [facility] ([facility]) [address] [place] [address] VIR XR CHEST 2 VWSon 06-23-2024 XR CHEST 2 VWS XR CHEST 2 VWS PA and lateral chest: HISTORY: Hemoptysis. 2 views the chest are obtained. Cardiac and mediastinal contours are within normal limits. Lungs are clear. There is no vascular congestion, effusion, or pneumothorax. Osseous structures appear intact. IMPRESSION: No acute findings. Finalized by Alfred Morales MD on 06/23/2024 9:41 AM Normal [facility] CMP FASTINGon 03-21-2024 A:G RATIO 1.3 RATIO Normal 1.3-2.2 [facility] Comment on above: Performed By: #### C MPF #### Testing performed at [address] [address] ALBUMIN 4.2 G/dl Normal 3.5-5.0 [facility] Comment on above: Performed By: #### C MPF #### Testing performed at [address] [address] ALP [Catalytic activity/Vol] 69 U/L Normal 38-126 [facility] Comment on above: Performed By: #### C MPF #### Testing performed at [address] [address] ALT [Catalytic activity/Vol] 14 U/L Normal <35 [facility] Comment on above: Performed By: #### C MPF #### Testing performed at [place] [id number] AST [Catalytic activity/Vol] 22 U/L Normal 14-36 [facility] Comment on above: Performed By: #### C MPF #### Testing performed at [place] [id number] Bilirubin [Mass/Vol] 0.5 mg/dL Normal 0.2-1.3 [facility] Comment on above: Performed By: #### C MPF #### Testing performed at [place] [id number] Calcium [Mass/Vol] 8.9 mg/dL Normal 8.4-10.2 [facility] Comment on above: Performed By: #### C MPF #### Testing performed at [place] [id number] Chloride [Moles/Vol] 103 mmol/L Normal 98-107 [facility] Comment on above: Result Comment: Mary fernandez note: Triglyceride levels of 600mg/dL or higher may positively bias chloride results by approximately 2.1 mmol Performed By: #### C MPF #### Testing performed at [place] [id number] CO2 [Moles/Vol] 21 mmol/L Low 22-30 [facility] Comment on above: Performed By: #### C MPF #### Testing performed at [address] [address] Creatinine [Mass/Vol] 0.80 mg/dL Normal 0.7-1.2 [facility] Comment on above: Performed By: #### C MPF #### Testing performed at [address] [address] EST. GFR, 99 ml/min/1.73sq.m Normal [facility] Comment on above: Performed By: #### C MPF #### Testing performed at [facility] [address] [place] [address] EST. GFR,Non 82 ml/min/1.73sq.m Normal [facility] Comment on above: Performed By: #### C MPF #### [place] [address] GFR Information Average GFR for 40-49 years old = 99. Normal [facility] Comment on above: Result Comment: [employer] godfrey Kidney disease, GFR = <60. Kidney failure, GFR = <15. The GFR estimate is not adjusted for extreme body surface area or acute process, nor has it been validated for women or ethnic groups other than and . Testing performed at [place] [address] Performed By: #### C MPF #### [place] [address] Glucose [Mass/Vol] 89 mg/dL Normal 70-100 [facility] Comment on above: Result Comment: NORMAL <100 mg/dL PREDIABETES 101-126 mg/dL DIABETES 126 mg/dL or higher Performed By: #### C MPF #### [place] [address] Potassium [Moles/Vol] 4.0 mmol/L Normal 3.5-5.1 [facility] Comment on above: Performed By: #### C MPF #### [place] [address] Protein [Mass/Vol] 7.4 g/dL Normal 6.3-8.2 [facility] Comment on above: Performed By: #### C MPF #### [place] [address] Sodium [Moles/Vol] 134 mmol/L Low 137-145 [facility] Comment on above: Performed By: #### C MPF #### Testing performed at [address] [address] Urea nitrogen [Mass/Vol] 18 mg/dL Normal 7-20 [facility] Comment on above: Performed By: #### C MPF #### Testing performed at [address] [address] HEMOGLOBIN A1Con 03-21-2024 Glucose [Mass/Vol] 85 mg/dL Normal [facility] Comment on above: Result Comment: Test ing performed at [place] [address] Performed By: #### H A1CT #### [place] [address] HbA1c (Bld) [Mass fraction] 4.6 % Normal 0-6 [facility] Comment on above: Result Comment: NORMAL <5.7% PREDIABETES 5.7-6.4% DIABETES 6.5% OR HIGHER Performed By: #### H A1CT #### Testing performed at [place] [id number] LIPID PROFILEon 03-21-2024 Cholesterol [Mass/Vol] 157 mg/dL Normal 107-217 [facility] Comment on above: Performed By: #### L IP2 #### Testing performed at [place] [id number] Cholesterol in HDL [Mass/Vol] 41 mg/dL Normal 33-75 [facility] Comment on above: Performed By: #### L IP2 #### Testing performed at [address] [address] Cholesterol in LDL [Mass/Vol] 95 mg/dL Normal <100 [facility] Comment on above: Performed By: #### L IP2 #### Testing performed at [place] [id number] Cholesterol in VLDL [Mass/Vol] 21 mg/dL Normal 5.0-25 [facility] Comment on above: Performed By: #### L IP2 #### Testing performed at [place] [id number] Cholesterol.total/Chol esterol in HDL [Mass ratio] 3.83 {ratio} Normal [facility] Comment on above: Result Comment: RISK TOTAL/HDL RATIO MEN WOMEN 1/2 AVERAGE 3.43 3.27 AVERAGE 4.97 4.44 2X AVERAGE 9.55 7.05 3X AVERAGE 23.99 11.04 Testing performed at [place] [address] Performed By: #### L IP2 #### Testing performed at [facility] [address] [place] [address] Triglyceride [Mass/Vol] 105 mg/dL Normal 0-150 [facility] Comment on above: Performed By: #### L IP2 #### Testing performed at [facility] [address] [place] [address] Laboratory - Chemistry and C hemistry - challengeon 03-21-2024 Cholesterol [Mass/Vol] 157 mg/dL [facility] Cholesterol in HDL [Mass/Vol] 41 mg/dL [facility] Cholesterol in LDL [Mass/Vol] 95 mg/dL NINF [facility] Cholesterol in VLDL [Mass/Vol] 21 mg/dL [facility] Cholesterol.total/Chol esterol in HDL [Mass ratio] 3.83 {ratio} RATIO [facility] Comment on above: RISK TOTAL/HDL RATIO MEN WOMEN 1/2 AVERAGE 3.43 3.27 AVERAGE 4.97 4.44 2X AVERAGE 9.55 7.05 3X AVERAGE 23.99 11.04 Testing performed at [place] [address] Triglyceride [Mass/Vol] 105 mg/dL [facility] No Panel Informationon 03-21 [facility] CBC with Diffon 01-31-2024 Basophils (Bld) [#/Vol] 0.06 10*3/uL [facility] Basophils/100 WBC (Bld) 1 % 0 - 2 % [facility] Eosinophils (Bld) [#/Vol] 0.26 10*3/uL [facility] Eosinophils/100 WBC (Bld) 2 % 1 - 4 % [facility] Erythrocyte distribution width (RBC) [Ratio] 13.6 % 11.8 - 14.4 % [facility] Hematocrit (Bld) [Volume fraction] 40.2 % 36.3 - 47.1 % [facility] Hemoglobin (Bld) [Mass/Vol] 13.4 g/dL 11.9 - 15.1 g/dL [facility] Immature granulocytes (Bld) [#/Vol] 0.05 10*3/uL [facility] Immature granulocytes/100 WBC (Bld) 0 % 0 [facility] Interpretation and review of laboratory results Abnormal [facility] Lymphocytes/100 WBC (Bld) 27 % 24 - 43 % [facility] Lymphocytes/100 WBC (Bld) 3.15 % [facility] MCH (RBC) [Entitic mass] 28.9 pg 25.2 - 33.5 pg [facility] MCHC (RBC) [Mass/Vol] 33.3 g/dL 28.4 - 34.8 g/dL [facility] MCV (RBC) [Entitic vol] 86.6 fL 82.6 - 102.9 fL [facility] Monocytes/100 WBC (Bld) 6 % 3 - 12 % [facility] Monocytes/100 WBC (Bld) 0.71 % [facility] Neutrophils/100 WBC (Bld) 64 % 36 - 65 % [facility] Nucleated RBC/100 WBC (Bld) [Ratio] 0.0 % 0.0 per 100 WBC [facility] Platelet mean volume (Bld) [Entitic vol] 11.2 fL 8.1 - 13.5 fL [facility] Platelets (Bld) [#/Vol] 440 10*3/uL [facility] RBC (Bld) [#/Vol] 4.64 10*6/uL 3.95 - 5.1 1 m/uL [facility] Segmented neutrophils/100 WBC (Bld) 7.57 % [facility] WBC other (Bld) [#/Vol] 11.8 High [facility] Abs. Basophil 0.06 k/uL Normal 0.00-0.20 [facility] Comment on above: Performed By: #### T ARTIE, MANISH, CP, LIP ####[facility] [place] [address] [facility] Director: Marcelino Lopez MD Abs.Imm.Granulocyte 0.05 k/uL Normal 0.00-0.30 [facility] Comment on above: Performed By: #### T ROPI, CDP, CP, LIP ####[address] , [place] [address])[phone] Director: Marcelino Lopez MD Abs.Neutrophil (Seg) 7.57 k/uL Normal 1.50-8.10 [facility] Comment on above: Performed By: #### T ROPI, CDP, CP, LIP ####[address] , [place] [address])[phone] Director: Marcelino Lopez MD Basophils/100 WBC (Bld) 1 % Normal 0-2 [facility] Comment on above: Performed By: #### T ROPI, CDP, CP, LIP ####[address] , [place] [address])[phone] Director: Marcelino Lopez MD Eosinophils (Bld) [#/Vol] 0.26 10*3/uL Normal 0.00-0.44 [facility] Comment on above: Performed By: #### T ROPI, CDP, CP, LIP ####[address] [place], [place] [address])[phone] Director: Marcelino Lopez MD Eosinophils/100 WBC (Bld) 2 % Normal 1-4 [facility] Comment on above: Performed By: #### T ROPI, CDP, CP, LIP ####[address] , [place] [address])[phone] Director: Marcelino Lopez MD Erythrocyte distribution width (RBC) [Ratio] 13.6 % Normal 11.8-14.4 [facility] Comment on above: Performed By: #### T ROPI, CDP, CP, LIP ####[address] , [place] [address] lab Director: Marcelino Lopez MD Hematocrit (Bld) [Volume fraction] 40.2 % Normal 36.3-47.1 [facility] Comment on above: Performed By: #### T ROPI, CDP, CP, LIP ####[address] , [place] [id number] lab Director: Marcelino Lopez MD Hemoglobin (Bld) [Mass/Vol] 13.4 g/dL Normal 11.9-15.1 [facility] Comment on above: Performed By: #### T ROPI, CDP, CP, LIP ####[address] , [place] [address]83 lab Director: Marcelino Lopez MD Immature granulocytes/100 WBC (Bld) 0 % Normal 0 [facility] Comment on above: Performed By: #### T ROPI, CDP, CP, LIP ####[address] , [facility]83 lab Director: Marcelino Lopez MD Lymphocytes (Bld) [#/Vol] 3.15 10*3/uL Normal 1.10-3.70 [facility] Comment on above: Performed By: #### T ROPI, CDP, CP, LIP ####[address] [place], [place] [address] lab Director: Marcelino Lopez MD Lymphocytes/100 WBC (Bld) 27 % Normal 24-43 [facility] Comment on above: Performed By: #### T ROPI, CDP, CP, LIP ####[address] , [place] 8534483 lab Director: Marcelino Lopez MD MCH (RBC) [Entitic mass] 28.9 pg Normal 25.2-33.5 [facility] Comment on above: Performed By: #### T ROPI, CDP, CP, LIP ####[address] [place], [place] [address] Lab Director: Marcelino Lopez MD MCHC (RBC) [Mass/Vol] 33.3 g/dL Normal 28.4-34.8 [facility] Comment on above: Performed By: #### T ROPI, CDP, CP, LIP ####[address] , [place] [phone] Director: Marcelino Lopez MD MCV (RBC) [Entitic vol] 86.6 fL Normal 82.6-102.9 [facility] Comment on above: Performed By: #### T ROPI, CDP, CP, LIP ####[address] , [facility]83[facility])[phone] Director: Marcelino Lopez MD Monocytes (Bld) [#/Vol] 0.71 10*3/uL Normal 0.10-1.20 [facility] Comment on above: Performed By: #### T ROPI, CDP, CP, LIP ####[address] , [place] [phone] Director: Marcelino Lopez MD Monocytes/100 WBC (Bld) 6 % Normal 3-12 [facility] Comment on above: Performed By: #### T ROPI, CDP, CP, LIP ####[address] [place] [address] Lab Director: Marcelino Lopez MD Neutrophil (Seg) 64 % Normal 36-65 [facility] Comment on above: Performed By: #### T ROPI, CDP, CP, LIP ####[address] [place] [address] Lab Director: Marcelino Lopez MD NRBC Automated 0.0 per 100 WBC Normal 0.0 [facility] Comment on above: Performed By: #### T ROPI, CDP, CP, LIP ####[address] [place] [address] Lab Director: Marcelino Lopez MD Platelet mean volume (Bld) [Entitic vol] 11.2 fL Normal 8.1-13.5 [facility] Comment on above: Performed By: #### T ARTIE, CDP, CP, LIP ####[facility] , [place] 253[address]83 Lab Director: Marcelino Lopez MD Platelets (Bld) [#/Vol] 440 10*3/uL Normal 138-453 [facility] Comment on above: Performed By: #### T ARTIE, CDP, CP, LIP ####[facility] [place] , [place] 7366383 Lab Director: Marcelino Lopez MD RBC (Bld) [#/Vol] 4.64 10*6/uL Normal 3.95-5.11 [facility] Comment on above: Performed By: #### T ARTIE, CDP, CP, LIP ####[facility] [place] , [place] 768[address]83 Lab Director: Marcelino Lopez MD WBC (Bld) [#/Vol] 11.8 10*3/uL High 3.5-11.3 [facility] Comment on above: Performed By: #### T ARTIE, CDP, CP, LIP ####[address] , [place] [phone] Lab Director: Marcelino Lopez MD [facility] 01-31-2024 Albumin [Mass/Vol] 4.3 g/dL 3.5 - 5.2 g/dL [facility] Albumin/Globulin [Mass ratio] 1.2 {ratio} 1.0 - 2.5 [facility] ALP [Catalytic activity/Vol] 100 U/L 35 - 104 U/L [facility] ALT [Catalytic activity/Vol] 9 U/L Low 10 - 35 U/L [facility] Anion gap [Moles/Vol] 13 mmol/L 9 - 16 mmol/L [facility] AST [Catalytic activity/Vol] 23 U/L 10 - 35 U/L [facility] Bilirubin [Mass/Vol] 0.3 mg/dL 0.00 - 1.20 mg/dL [facility] Calcium [Mass/Vol] 9.3 mg/dL 8.6 - 10. 4 mg/dL [facility] Chloride [Moles/Vol] 98 mmol/L 98 - 10 7 mmol/L [facility] CO2 [Moles/Vol] 27 mmol/L 20 - 31 mmol/L [facility] Creatinine [Mass/Vol] 1.2 mg/dL High 0.50 - 0.90 mg/dL [facility] Est, Glom Filt Rate 56 Low - [facility] Comment on above: These results are [...] [Mass/Vol] 93 mg/dL 74 - 99 mg/dL [facility] Potassium [Moles/Vol] 4.0 mmol/L 3.7 - 5.3 mmol/L [facility] Protein [Mass/Vol] 8.0 g/dL 6.6 - 8.7 g/dL [facility] Sodium [Moles/Vol] 138 mmol/L 136 - 145 mmol/L [facility] Urea nitrogen [Mass/Vol] 13 mg/dL 6 - 20 mg/dL [facility] Urea nitrogen/Creatinine [Mass ratio] 11 mg/mg 9 - [address] [facility] [address] ABDOMEN PELVIS W IV CONTR [...] COMPARISON: 11/13/2019 HISTORY: ORDERING SYSTEM PROVIDED HISTORY: [facility] pain TECHNOLOGIST PROVIDED HISTORY: [facility] pain Decision Support Exception - unselect [...] Monique Bains MD 01/31/24 Final result Normal [facility] CT Abdomen and Pelvis W cont rast [...] the pelvis. Osseous: Spondylosis. Old rib fractures. [facility] RIS CONSOLIDATED Monique Bains MD [...] Old rib fractures. IMPRESSION: No acute process [facility] Radiology Study observation (narrative) [facility] CT Abdomen and Pelvis W cont rast IVOrdered By: Monique Bains on 01-31-2024 [facility] Work Phone: Comp Metabolic Profon 2023 Albumin [Mass/Vol] 4.3 g/dL Normal 3.5-5.2 [facility] Comment on above: Performed By: #### T ARTIE, MANISH, CP, LIP ####[facility] [place] [address] lab Director: Marcelino Lopez MD Albumin/Glob Ratio 1.2 Normal 1.0-2.5 [facility] Comment on above: Performed By: #### T ARTIE, CDP, CP, LIP ####[facility] 3305683 lab Director: Marcelino Lopez MD Alkaline Phos 100 U/L Normal 35-104 [facility] Comment on above: Performed By: #### T ROPI, CDP, CP, LIP ####[facility] [place] , [place] 4688683 lab Director: Marcelino Lopez MD ALT [Catalytic activity/Vol] 9 U/L Low 10-35 [facility] Comment on above: Performed By: #### T ROPI, CDP, CP, LIP ####[facility] [place] , [place] 3929683 lab Director: Marceilno Lopez MD Anion gap [Moles/Vol] 13 mmol/L Normal 9-16 [facility] Comment on above: Performed By: #### T ROPI, CDP, CP, LIP ####[address] , [place] 450[address]83 lab Director: Marcelino Lopez MD AST [Catalytic activity/Vol] 23 U/L Normal 10-35 [facility] Comment on above: Performed By: #### T ROPI, CDP, CP, LIP ####[address] , [place] 800[address]83 lab Director: Marcelino Lopez MD Bilirubin [Mass/Vol] 0.3 mg/dL Normal 0.00-1.20 [facility] Comment on above: Performed By: #### T ROPI, CDP, CP, LIP ####[address] , [place] 1200983 lab Director: Marcelino Lopez MD BUN/CRE Ratio 11 Normal 9-20 [facility] Comment on above: Performed By: #### T ROPI, CDP, CP, LIP ####[address] , [place] 4025383 lab Director: Marcelino Lopez MD Calcium [Mass/Vol] 9.3 mg/dL Normal 8.6-10.4 [facility] Comment on above: Performed By: #### T ROPI, CDP, CP, LIP ####[address] [place] [address] Lab Director: Mareclino Lopez MD Chloride [Moles/Vol] 98 mmol/L Normal 98-107 [facility] Comment on above: Performed By: #### T ROPI, CDP, CP, LIP ####[address] , [place] 938[address]83 lab Director: Marcelino Lopez MD CO2 [Moles/Vol] 27 mmol/L Normal 20-31 [facility] Comment on above: Performed By: #### T ROPI, CDP, CP, LIP ####[address] , [place] 3872283 lab Director: Marcelino Lopez MD Creatinine [Mass/Vol] 1.2 mg/dL High 0.50-0.90 [facility] Comment on above: Performed By: #### T ARTIE, CDP, CP, LIP ####[address] [place] [address] lab Director: Marcelino Lopez MD GFR/1.73 sq M.predicted among non-blacks MDRD (S/P/Bld) [Vol rate/Area] 56 mL/min/{1.73_m2} Low >60 [facility] Comment on above: Result Comment: These results [...] By: #### T ROPI, CDP, CP, LIP ####[address] [place] [address] lab Director: Marcelino Lopez MD Glucose [Mass/Vol] 93 mg/dL Normal 74-99 [facility] Comment on above: Performed By: #### T ROPI, CDP, CP, LIP ####[address] , [place] 6673183 Lab Director: Marcelino Lopez MD Potassium [Moles/Vol] 4.0 mmol/L Normal 3.7-5.3 [facility] Comment on above: Performed By: #### T ROPI, CDP, CP, LIP ####[address] , [place] 0583583 Lab Director: Marcelino Lopez MD Protein [Mass/Vol] 8.0 g/dL Normal 6.6-8.7 [facility] Comment on above: Performed By: #### T ARTIE, CDP, CP, LIP ####[address] [place] [address] Lab Director: Marcelino Lopez MD Sodium [Moles/Vol] 138 mmol/L Normal 136-145 [facility] Comment on above: Performed By: #### T ROPGladys, CDP, CP, LIP ####[address] , [place] 3676283 Lab Director: Marcelino Lopez MD Urea nitrogen [Mass/Vol] 13 mg/dL Normal 6-20 [facility] Comment on above: Performed By: #### T ROPI, CDP, CP, LIP ####[address] [place] [address] Lab Director: Marcelino Lopez MD Lipaseon 01-31-2024 Lipase [Catalytic activity/Vol] 12 U/L Low 13 - 60 U/L [facility] Lipase [Catalytic activity/Vol] 12 U/L Low 13-60 [facility] Comment on above: Performed By: #### T ROPI, CDP, CP, LIP ####[address] [place] [address] Lab Director: Marcelino Lopez MD Microscopic Urinalysison Bacteria LM Ql (Urine sed) 3+ Abnormal None [facility] Casts LM.LPF (Urine sed) [#/Area] 2 TO 5 HYALINE /LPF [facility] Epithelial cells LM.HPF (Urine sed) [#/Area] 10 TO 20 [facility] Interpretation and review of laboratory results Abnormal [facility] RBC LM.HPF (Urine sed) [#/Area] 2 TO 5 [facility] WBC LM.HPF (Urine sed) [#/Area] 2 TO 5 [facility] No Panel Informationon 01-30 Interpretation and review of laboratory results Abnormal [facility] Troponinon 01-31-2024 Troponin I.cardiac High sensitivity method [Mass/Vol] ng/L 0 - 14 ng/L [facility] Comment on above: High Sensitivity Tro ponin values cannot be compared with other Troponin methodologies. Troponin, High Sens <6 Normal 0-14 [facility] Comment on above: Result Comment: High Sensitivity Troponin values cannot be compared with other Troponin methodologies. Performed By: #### T ROPI, CDP, CP, LIP ####[facility] [place] [address] , [place] [address] Lab Director: Marcelino Lopez MD UA w/Reflex Cultureon 2023 Bilirubin, SemiQt,Ur Negative Normal NEG [facility] Comment on above: Performed By: #### U MICAO, UAX #### [facility] [address] [place] [address] Veneer Grader: Marcelino Lopez MD Blood, Urine TRACE Abnormal NEG [facility] Comment on above: Performed By: #### U MICAO, UAX #### [facility] [address] [place] [address] Veneer Grader: Marcelino Lopez MD Clarity (U) Clear Normal CLEAR [facility] Comment on above: Performed By: #### U MICAO, UAX #### [facility] [address] [place], [place] 2660683 Veneer Grader: Marcelino Lopez MD Color (U) Yellow Normal YEL [facility] Comment on above: Performed By: #### U MICAO, UAX #### [facility] [address] [place], [place] 3067483 Veneer Grader: Marcelino Lopez MD Glucose Ql (U) Negative Normal NEG [facility] Comment on above: Performed By: #### U MICAO, UAX #### [facility] [address] [place], [place] 1312083 Veneer Grader: Marcelino Lopez MD Ketones Ql (U) Negative Normal NEG [facility] Comment on above: Performed By: #### U MICAO, UAX #### [facility] [address] [place], [place] 3797383 Veneer Grader: Marcelino Lopez MD Leukocyte esterase Test strip Ql (U) Negative Normal NEG [facility] Comment on above: Performed By: #### U MICAO, UAX #### [facility] [address] [place] [address] Dr[address] [place], [place] 7246783 Veneer Grader: Marcelino Lopez MD Nitrite,Ur Positive Abnormal NEG [facility] Comment on above: Performed By: #### U MICAO, UAX #### [facility] [address] [place], [place] 7985783 Veneer Grader: Marcelino Lopez MD PH,Ur 5.5 Normal 5.0-9.0 [facility] Comment on above: Performed By: #### U MICAO, UAX #### [facility] [address] [place], [place] 9[address]83 Veneer Grader: Marcelino Lopez MD Protein Ql (U) Negative Normal NEG [facility] Comment on above: Performed By: #### U SARAHO, UAX #### [facility] [address] [place] [address] Veneer Grader: Marcelino Lopez MD Spec. [place],Ur >1.030 High 1.010-1.020 [facility] Comment on above: Performed By: #### U FOREST, UAX #### [facility] [address] [place] [address] Veneer Grader: Marcelino Lopez MD Urobilinogen,Ur Normal Normal 0.0-1.0 [facility] Comment on above: Performed By: #### U FOREST UAX #### [facility] [address] [place] [address] Veneer Grader: Marcelino Lopez MD Urinalysis with Reflex to Cu ltureon 01-31-2024 Bilirubin Ql (U) Negative NEGATIVE [facility] Clarity (U) Clear Clear [facility] Color (U) Yellow Yellow [facility] Glucose Test strip (U) [Mass/Vol] Negative NEGATIVE mg/dL [facility] Hemoglobin Auto test strip Ql (U) TRACE Abnormal NEGATIVE [facility] Interpretation and review of laboratory results Abnormal [facility] Ketones (U) [Mass/Vol] Negative NEGAT [place] mg/dL [facility] Leukocyte esterase Test strip Ql (U) Negative NEGATIVE [facility] Nitrite Ql (U) Positive Abnormal NEGATIVE [facility] pH (U) 5.5 [pH] 5.0 - 9.0 [facility] Protein (U) [Mass/Vol] Negative NEGAT [place] mg/dL [facility] Specific gravity (U) [Rel density] High 1.010 - 1.020 [facility] Urobilinogen Qn (U) Normal 0.0 - 1. 0 EU/dL [facility] Urinalysis,Microon 4 Bacteria 3+ Abnormal NONE [facility] Comment on above: Performed By: #### U SARAHO UAX #### [facility] [address] [place], [place] 6549483 Veneer Grader: Marcelino Lopez MD Casts 2 TO 5 Normal [facility] Comment on above: Result Comment: HYAL INE Performed By: #### U MICAO, UAX #### [facility] [address] [place], [place] 0574283 Veneer Grader: Marcelino Lopez MD Epithelial cells LM Ql (Urine sed) 10 TO 20 Normal 0-25 [facility] Comment on above: Performed By: #### U MICAO, UAX #### [facility] [address] [place], [place] 2394183 Veneer Grader: Marcelino Lopez MD Urine RBC's 2 TO 5 Normal 0-2 [facility] Comment on above: Performed By: #### U MICAO, UAX #### [facility] [address] [place], [place] 7123983 Veneer Grader: Marcelino Lopez MD Urine WBC's 2 TO 5 Normal 0-5 [facility] Comment on above: Performed By: #### U MICAO, UAX #### [facility] [address] [place], [place] 1839083 Veneer Grader: Marcelino Lopez MD [facility] DIGITAL SCREEN LISA Lares 11-21-2023 [facility] DIGITAL SCREEN BILATERAL EXAMINATION: SCREENING [...] to the patient regarding the results. The [employer] recommends annual mammograms for women 40 years and older. Interpreted by: Erlin Sol MD Signed by: Erlin Sol MD 11/21/23 Final result Normal [facility] Terrie 07-28-2023 ALT [Catalytic activity/Vol] 5 U/L Normal 5-33 [facility] Comment on above: Performed By: #### B MP, ALT, AST #### [facility] [address] [address] Veneer Grader: Marcelino Lopez MD #### FERI #### [address] [id number] Veneer Grader: Higinio Bullock MD [place] 07-28-2023 AST [Catalytic activity/Vol] 11 U/L Normal <32 [facility] Comment on above: Performed By: #### B MP, ALT, AST #### [facility] [address] [place] [address] Veneer Grader: Marcelino Lopez MD #### FERI #### [address] [phone] Veneer Grader: Higinio Bullock MD Basic Metabolic Profon 07-27 Anion gap [Moles/Vol] 11 mmol/L Normal 9-17 [facility] Comment on above: Performed By: #### B MP, ALT, AST #### [facility] [address] [address] Veneer Grader: Marcelino Lopez MD #### FERI #### [address] [phone] Veneer Grader: Higinio Bullock MD BUN/CRE Ratio 13 Normal 9-20 [facility] Comment on above: Performed By: #### B MP, ALT, AST #### [address] [place], [place] [address] Veneer Grader: Marcelino Lopez MD #### FERI #### [address] [phone] Veneer Grader: Higinio Bullock MD Calcium [Mass/Vol] 8.8 mg/dL Normal 8.6-10.4 [facility] Comment on above: Performed By: #### B MP, ALT, AST #### [address] [place], [place] 2548083 Veneer Grader: Marcelino Lopez MD #### FERI #### [address] [phone] Veneer Grader: Higinio Bullock MD Chloride [Moles/Vol] 102 mmol/L Normal 98-107 [facility] Comment on above: Performed By: #### B MP, ALT, AST #### [address] [place], [place] 249[address]83 Veneer Grader: Marcelino Lopez MD #### FERI #### [address] [address] Veneer Grader: Higinio Bullock MD CO2 [Moles/Vol] 24 mmol/L Normal 20-31 [facility] Comment on above: Performed By: #### B MP, ALT, AST #### [address] [place], [place] [phone] Veneer Grader: Marcelino Lopez MD #### FERI #### [address] [address] Veneer Grader: Higinio Bullock MD Creatinine [Mass/Vol] 0.7 mg/dL Normal 0.5-0.9 [facility] Comment on above: Performed By: #### B MP, ALT, AST #### [address] [place] [address] Veneer Grader: Marcelino Lopez MD #### FERI #### [address] [phone] Veneer Grader: Higinio Bullock MD GFR/1.73 sq M.predicted among non-blacks MDRD (S/P/Bld) [Vol rate/Area] mL/min/{1.73_m2} Normal >60 [facility] Comment on above: Result Comment: These results [...] By: #### B MP, ALT, AST #### [address] [place] [id number] ( Veneer Grader: Marcelino Lopez MD #### FERI #### [address] [phone] Veneer Grader: Higinio Bullock MD Glucose [Mass/Vol] 95 mg/dL Normal 70-99 [facility] Comment on above: Performed By: #### B MP, ALT, AST #### [address] [place] [address] Veneer Grader: Marcelino Lopez MD #### FERI #### [address] [phone] Veneer Grader: Higinio Bullock MD Potassium [Moles/Vol] 3.8 mmol/L Normal 3.7-5.3 [facility] Comment on above: Performed By: #### B MP, ALT, AST #### [address] [place] [address] Veneer Grader: Marcelino Lopez MD #### FERI #### [place] [address] [place], [place] [id number] Veneer Grader: Higinio Bullock MD Sodium [Moles/Vol] 137 mmol/L Normal 135-144 [facility] Comment on above: Performed By: #### B MP, ALT, AST #### [facility] [address] [address] Veneer Grader: Marcelino Lopez MD #### FERI #### [place] [address] [place], [place] 9668408 Veneer Grader: Higinio Bullock MD Urea nitrogen [Mass/Vol] 9 mg/dL Normal 6-20 [facility] Comment on above: Performed By: #### B MP, ALT, AST #### [address] [place] [phone] Veneer Grader: Marcelino Lopez MD #### FERI #### [place] [address] [place], [place] [phone] Veneer Grader: Higinio Bullock MD CBC with Diffon 07-28-2023 Abs. Basophil 0.08 k/uL Normal 0.00-0.20 [facility] Comment on above: Performed By: #### C DP #### [address] [place] [phone] Veneer Grader: Marcelino Lopez MD Abs.Imm.Granulocyte 0.04 k/uL Normal 0.00-0.30 [facility] Comment on above: Performed By: #### C DP #### [facility] [address] [place] [phone] Veneer Grader: Marcelino Lopez MD Abs.Neutrophil (Seg) 4.48 k/uL Normal 1.50-8.10 [facility] Comment on above: Performed By: #### C DP #### [facility] [address] [place] [id number] [employer]er Grader: Marcelino Lopez MD Basophils/100 WBC (Bld) 1 % Normal 0-2 [facility] Comment on above: Performed By: #### C DP #### [facility] [address] [place] [address] Dr. [place], [place] 1128783 [employer]er [employer]ader: Marcelino Lopez MD Eosinophils (Bld) [#/Vol] 0.45 10*3/uL High 0.00-0.44 [facility] Comment on above: Performed By: #### C DP #### [facility] [address] [place] [address] Dr. [place], [place] [id number] [employer]er Grader: Marcelino Lopez MD Eosinophils/100 WBC (Bld) 5 % High 1-4 [facility] Comment on above: Performed By: #### C DP #### [address] [place], [facility]83 [employer]ader: Marcelino Lopez MD Erythrocyte distribution width (RBC) [Ratio] 15.2 % High 11.8-14.4 [facility] Comment on above: Performed By: #### C DP #### [address] [place], [place] [id number] [employer]eneer [employer]ader: Marcelino Lopez MD Hematocrit (Bld) [Volume fraction] 35.2 % Low 36.3-47.1 [facility] Comment on above: Performed By: #### C DP #### [facility] [address] [place] [address] Dr. [place], [facility]83 [employer]ader: Marcelino Lopez MD Hemoglobin (Bld) [Mass/Vol] 10.8 g/dL Low 11.9-15.1 [facility] Comment on above: Performed By: #### C DP #### [address] [place], [place] [id number] Veneer Grader: Marcelino Lopez MD Immature granulocytes/100 WBC (Bld) 1 % High 0 [facility] Comment on above: Performed By: #### C DP #### [facility] [address] [place], [place] [id number] Veneer Grader: Marcelino Lopez MD Lymphocytes (Bld) [#/Vol] 3.04 10*3/uL Normal 1.10-3.70 [facility] Comment on above: Performed By: #### C DP #### [facility] [address] [place], [facility]83 Veneer Grader: Marcelino Lopez MD Lymphocytes/100 WBC (Bld) 35 % Normal 24-43 [facility] Comment on above: Performed By: #### C DP #### [address] [place], [facility]83 Veneer Grader: Marcelino Lopez MD MCH (RBC) [Entitic mass] 24.3 pg Low 25.2-33.5 [facility] Comment on above: Performed By: #### C DP #### [address] [place], [facility]83 Veneer Grader: Marcelino Lopez MD MCHC (RBC) [Mass/Vol] 30.7 g/dL Normal 28.4-34.8 [facility] Comment on above: Performed By: #### C DP #### [address] [place], [facility]70 ( Veneer Grader: Marcelino Lopez MD MCV (RBC) [Entitic vol] 79.3 fL Low 82.6-102.9 [facility] Comment on above: Performed By: #### C DP #### [address] [place], [facility]83 Veneer Grader: Marcelino Lopez MD Monocytes (Bld) [#/Vol] 0.63 10*3/uL Normal 0.10-1.20 [facility] Comment on above: Performed By: #### C DP #### [address] [place], [place] [id number] [employer] Grader: Marcelino Lopez MD Monocytes/100 WBC (Bld) 7 % Normal 3-12 [facility] Comment on above: Performed By: #### C DP #### [facility] [address] [place], [place] [phone] Veneer Grader: Marcelino Lopez MD Neutrophil (Seg) 51 % Normal 36-65 [facility] Comment on above: Performed By: #### C DP #### [facility] [address] [place], [place] [id number] Veneer Grader: Marcelino Lopez MD NRBC Automated 0.0 per 100 WBC Normal 0.0 [facility] Comment on above: Performed By: #### C DP #### [facility] [address] [place], [place] 1651683 Veneer Grader: Marcelino Lopez MD Platelet mean volume (Bld) [Entitic vol] 11.5 fL Normal 8.1-13.5 [facility] Comment on above: Performed By: #### C DP #### [address] [place], [place] 3448183 Veneer Grader: Marcelino Lopez MD Platelets (Bld) [#/Vol] 375 10*3/uL Normal 138-453 [facility] Comment on above: Performed By: #### C DP #### [facility] [address] [place], [place] [phone] Veneer Grader: Marcelino Lopez MD RBC (Bld) [#/Vol] 4.44 10*6/uL Normal 3.95-5.11 [facility] Comment on above: Performed By: #### C DP #### [facility] [address] [place] [address] Veneer Grader: Marcelino Lopez MD WBC (Bld) [#/Vol] 8.7 10*3/uL Normal 3.5-11.3 [facility] Comment on above: Performed By: #### C DP #### [facility] [address] [address] Veneer Grader: Marcelino Lopez MD Ferritinon 07-28-2023 Ferritin [Mass/Vol] 11 ng/mL Low 13-150 [facility] Comment on above: Result Comment: FERRITIN Reference Ranges: Adult Males 20 - 60 years: 30 - 400 ng/mL Adult females 17 - 60 years: 13 - 150 ng/mL Adults greater than 60 years: no established reference range Pediatrics: no established reference range Performed By: #### B MP, ALT, AST #### [facility] [address] [place] [phone] Veneer Grader: Marcelino Lopez MD #### FERI #### [place] [address] [place] [address] Veneer Grader: Higinio Bullock MD Lipid Profileon 07-28-2023 Cholesterol [Mass/Vol] 169 mg/dL Normal 0-199 [facility] Comment on above: Result Comment: Cholesterol Guidelines: <200 Desirable 200-240 Borderline >240 Undesirable Performed By: #### L IPR ####[facility] [place] [address] Lab Director: Higinio Bullock MD Cholesterol in HDL [Mass/Vol] 46 mg/dL Normal >40 [facility] Comment on above: Result Comment: HDL Guidelines: <40 Undesirable 40-59 Borderline >59 Desirable Performed By: #### L IPR ####[facility] [id number] [place] [address] Lab Director: Higinio Bullock MD Cholesterol in LDL [Mass/Vol] 90 mg/dL Normal 0-100 [facility] Comment on above: Result Comment: LDL Guidelines: <100 Desirable 100-129 Near to/above Desirable 130-159 Borderline >159 Undesirable Direct (measured) LDL and calculated LDL are not interchangeable tests. Performed By: #### L IPR ####[facility] [id number] [place] [address] Lab Director: Higinio Bullock MD Cholesterol in VLDL [Mass/Vol] 33 mg/dL Normal [facility] Comment on above: Performed By: #### L IPR ####[facility] [id number] [place], [place] [phone] Director: Higinio Bullock MD Cholesterol.total/Chol esterol in HDL [Mass ratio] 4.0 {ratio} Normal [facility] Comment on above: Performed By: #### L IPR ####[facility] [id number] [place] [address] Lab Director: Higinio Bullock MD Triglyceride [Mass/Vol] 166 mg/dL High <150 [facility] Comment on above: Result Comment: Triglyceride Guidelines: <150 Desirable 150-199 Borderline 200-499 High >499 Very high Based on AHA Guidelines for fasting triglyceride, February 2012. Performed By: #### L IPR ####[facility] [id number] [place], [place] [phone] Director: Higinio Bullock MD Vitamin B12on 07-28-2023 Cobalamin (Vitamin B12) [Mass/Vol] 263 pg/mL Normal 232-1245 [facility] Comment on above: Performed By: #### B MP, ALT, AST #### [facility] [address] [place] [address] Veneer Grader: Marcelino Lopez MD #### FERI #### [facility] [address] [place] [address] Veneer Grader: Higinio Bullock MD Cult,Urineon 07-26-2023 Cult,Urine Specimen [...] Tobramycin <=1 SUSCEPTIBLE Trimethoprim/Sulfa <=20 SUSCEPTIBLE Susceptible [facility] Comment on above: Performed By: #### U RC #### [facility] [address] [place] [address] Veneer Grader: Higinio Bullock MD [facility] [address] [place], [place] [address] Veneer Grader: Marcelino Lopez MD CBC with Diffon 04-23-2023 Abs. Basophil 0.05 k/uL Normal 0.00-0.20 [facility] Comment on above: Performed By: #### C P, CDP, MG ####[address] , [place] [address])[phone] Director: Marcelino Lopez MD Abs.Imm.Granulocyte 0.07 k/uL Normal 0.00-0.30 [facility] Comment on above: Performed By: #### C P, CDP, MG ####[address] , [place] [address])[phone] Director: Marcelino Lopez MD Abs.Neutrophil (Seg) 13.34 k/uL High 1.50-8.10 [facility] Comment on above: Performed By: #### C P, CDP, MG ####[address] , [place] [address])[phone] Director: Marcelino Lopez MD Basophils/100 WBC (Bld) 0 % Normal 0-2 [facility] Comment on above: Performed By: #### C P, CDP, MG ####[address] , [facility]86([facility])[phone] Director: Marcelino Lopez MD Eosinophils (Bld) [#/Vol] 0.19 10*3/uL Normal 0.00-0.44 [facility] Comment on above: Performed By: #### C P, CDP, MG ####[address] , [place] [address] [facility] Director: Marcelino Lopez MD Eosinophils/100 WBC (Bld) 1 % Normal 1-4 [facility] Comment on above: Performed By: #### C P, CDP, MG ####[address] , [place] [address] [facility] Director: Marcelino Lopez MD Erythrocyte distribution width (RBC) [Ratio] 15.3 % High 11.8-14.4 [facility] Comment on above: Performed By: #### C P, CDP, MG ####[address] , [place] [address] [facility] Director: Marcelino Lopez MD Hematocrit (Bld) [Volume fraction] 33.3 % Low 36.3-47.1 [facility] Comment on above: Performed By: #### C P, CDP, MG ####[address] , [place] [address] [facility] Director: Marcelino Lopez MD Hemoglobin (Bld) [Mass/Vol] 10.4 g/dL Low 11.9-15.1 [facility] Comment on above: Performed By: #### C P, CDP, MG ####[address] , [place] [address] [facility] Director: Marcelino Lopez MD Immature granulocytes/100 WBC (Bld) 1 % High 0 [facility] Comment on above: Performed By: #### C P, CDP, MG ####[address] , [place] [address] Lab Director: Marcelino Lopez MD Lymphocytes (Bld) [#/Vol] 1.02 10*3/uL Low 1.10-3.70 [facility] Comment on above: Performed By: #### C P, CDP, MG ####[address] , [place] 1621283 Lab Director: Marcelino Lopez MD Lymphocytes/100 WBC (Bld) 7 % Low 24-43 [facility] Comment on above: Performed By: #### C P, CDP, MG ####[address] [place] [address] Lab Director: Marcelino Lopez MD MCH (RBC) [Entitic mass] 25.7 pg Normal 25.2-33.5 [facility] Comment on above: Performed By: #### C P, CDP, MG ####[address] , [facility]83 Lab Director: Marcelino Lopez MD MCHC (RBC) [Mass/Vol] 31.2 g/dL Normal 28.4-34.8 [facility] Comment on above: Performed By: #### C P, CDP, MG ####[address] , [facility]83 Lab Director: Marcelino Lopez MD MCV (RBC) [Entitic vol] 82.4 fL Low 82.6-102.9 [facility] Comment on above: Performed By: #### C P, CDP, MG ####[address] , [facility]83 Lab Director: Marcelino Lopez MD Monocytes (Bld) [#/Vol] 0.81 10*3/uL Normal 0.10-1.20 [facility] Comment on above: Performed By: #### C P, CDP, MG ####[address] , [place] 4514883 Lab Director: Marcelino Lopez MD Monocytes/100 WBC (Bld) 5 % Normal 3-12 [facility] Comment on above: Performed By: #### C P, CDP, MG ####[address] , [place] 8251083 Lab Director: Marcelino Lopez MD Neutrophil (Seg) 86 % High 36-65 [facility] Comment on above: Performed By: #### C P, CDP, MG ####[address] , [place] 5691483 Lab Director: Marcelino Lopez MD NRBC Automated 0.0 per 100 WBC Normal 0.0 [facility] Comment on above: Performed By: #### C P, CDP, MG ####[address] , [facility]83 Lab Director: Marcelino Lopez MD Platelet mean volume (Bld) [Entitic vol] 10.7 fL Normal 8.1-13.5 [facility] Comment on above: Performed By: #### C P, CDP, MG ####[address] , [place] [address])[phone] Director: Marcelino Lopez MD Platelets (Bld) [#/Vol] 331 10*3/uL Normal 138-453 [facility] Comment on above: Performed By: #### C P, CDP, MG ####[address] , [facility]29 Lab Director: Marcelino Lpoez MD RBC (Bld) [#/Vol] 4.04 10*6/uL Normal 3.95-5.11 [facility] Comment on above: Performed By: #### C P, CDP, MG ####[address] , [facility]83419)[phone] Director: Marcelino Lopez MD WBC (Bld) [#/Vol] 15.5 10*3/uL High 3.5-11.3 [facility] Comment on above: Performed By: #### C P, CDP, MG ####[address] , [facility]83 Lab Director: Marcelino Lopez MD Comp Metabolic Profon 12-10- 2023 Albumin [Mass/Vol] 3.9 g/dL Normal 3.5-5.2 [facility] Comment on above: Performed By: #### C P, CDP, MG ####[address] [place] [address] Lab Director: Marcelino Lopez MD Albumin/Glob Ratio 1.0 Normal 1.0-2.5 [facility] Comment on above: Performed By: #### C P, CDP, MG ####[address] , [place] 0260283 lab Director: Marcelino Lopez MD Alkaline Phos 97 U/L Normal 35-104 [facility] Comment on above: Performed By: #### C P, CDP, MG ####[address] , [place] 6308083 Lab Director: Marcelino Lopez MD ALT [Catalytic activity/Vol] 7 U/L Normal 5-33 [facility] Comment on above: Performed By: #### C P, CDP, MG ####[address] , [place] 9270183 lab Director: Marcelino Lopez MD Anion gap [Moles/Vol] 10 mmol/L Normal 9-17 [facility] Comment on above: Performed By: #### C P, CDP, MG ####[address] , [place] 1039183 lab Director: Marcelino Lopez MD AST [Catalytic activity/Vol] 16 U/L Normal <32 [facility] Comment on above: Performed By: #### C P, CDP, MG ####[address] [place] [address] lab Director: Marcelino Lopez MD Bilirubin [Mass/Vol] 0.2 mg/dL Low 0.3-1.2 [facility] Comment on above: Performed By: #### C P, CDP, MG ####[address] , [place] 3091183 Lab Director: Marcelino Lopez MD BUN/CRE Ratio 17 Normal 9-20 [facility] Comment on above: Performed By: #### C P, CDP, MG ####[address] , [place] 8268083 lab Director: Marcelino Lopez MD Calcium [Mass/Vol] 8.9 mg/dL Normal 8.6-10.4 [facility] Comment on above: Performed By: #### C P, CDP, MG ####[address] , [place] 5965583 lab Director: Marcelino Lopez MD Chloride [Moles/Vol] 103 mmol/L Normal 98-107 [facility] Comment on above: Performed By: #### C P, CDP, MG ####[address] , [place] 5606583 lab Director: Marcelino Lopez MD CO2 [Moles/Vol] 22 mmol/L Normal 20-31 [facility] Comment on above: Performed By: #### C P, CDP, MG ####[address] , [place] 2254783 lab Director: Marcelino Lopez MD Creatinine [Mass/Vol] 0.6 mg/dL Normal 0.5-0.9 [facility] Comment on above: Performed By: #### C P, CDP, MG ####[address] [place] [address] lab Director: Marcelino Lopez MD GFR/1.73 sq M.predicted among non-blacks MDRD (S/P/Bld) [Vol rate/Area] mL/min/{1.73_m2} Normal >60 [facility] Comment on above: Result Comment: These results [...] Performed By: #### C P, CDP, MG ####[address] [place] [address] Lab Director: Marcelino Lopez MD Glucose [Mass/Vol] 100 mg/dL High 70-99 [facility] Comment on above: Performed By: #### C P, CDP, MG ####[address] [place] [address] Lab Director: Marcelino Lopez MD Potassium [Moles/Vol] 3.8 mmol/L Normal 3.7-5.3 [facility] Comment on above: Performed By: #### C P, CDP, MG ####[address] [place] [address] Lab Director: Marcelino Lopez MD Protein [Mass/Vol] 7.8 g/dL Normal 6.4-8.3 [facility] Comment on above: Performed By: #### C P, CDP, MG ####[address] [place] [address] Lab Director: Marcelino Lopez MD Sodium [Moles/Vol] 135 mmol/L Normal 135-144 [facility] Comment on above: Performed By: #### C P, CDP, MG ####[address] [place] [address] Lab Director: Marcelino Lopez MD Urea nitrogen [Mass/Vol] 10 mg/dL Normal 6-20 [facility] Comment on above: Performed By: #### C P, CDP, MG ####[address] [place], [place] 8346383 [facility] Director: Marcelino Lopez MD Magnesiumon 04-23-2023 Magnesium [Mass/Vol] 1.9 mg/dL Normal 1.6-2.6 [facility] Comment on above: Performed By: #### B MP, ALT, AST #### [facility] [address] [place], [place] 3238883 Veneer Grader: Marcelino Lopez MD #### FERI #### [facility] [address] [place], [place] 8212008 Veneer Grader: Higinio Bullock MD Strep Group A, Rapidon 04-23 Strep A, Molecular Positive Abnormal NEG [facility] Comment on above: Performed By: #### R SAB ####[facility] , [place] 6300883 [facility] Director: Marcelino Lopez MD Source .THROAT SWAB Normal [facility] Comment on above: Performed By: #### R SAB ####[facility] , [place] 3507883 [facility] Director: Marcelino Lopez MD UA w/Reflex Cultureon 2022 Bilirubin, SemiQt,Ur Negative Normal NEG [facility] Comment on above: Performed By: #### U AX, UMICAO ####[facility] , [facility]83 [facility] Director: Marcelino Lopez MD Blood, Urine 3+ Abnormal NEG [facility] Comment on above: Performed By: #### U AX, UMICAO ####[facility] , [place] 5390883 Lab Director: Marcelino Lopez MD Clarity (U) Clear Normal CLEAR [facility] Comment on above: Performed By: #### U AX, UMICAO ####[facility] , [place] 0568483 Lab Director: Marcelino Lopez MD Color (U) Yellow Normal YEL [facility] Comment on above: Performed By: #### U AX, UMICAO ####[address] , [place] 1295683 Lab Director: Marcelino Lopez MD Glucose Ql (U) Negative Normal NEG [facility] Comment on above: Performed By: #### U AX, UMICAO ####[address] [place] [address] Lab Director: Marcelino Lopez MD Ketones Ql (U) 1+ mg/dL Abnormal NEG [facility] Comment on above: Performed By: #### U AX, UMICAO ####[address] [place] [address] Lab Director: Marcelino Lopez MD Leukocyte esterase Test strip Ql (U) Negative Normal NEG [facility] Comment on above: Performed By: #### U AX, UMICAO ####[address] [place] [address] Lab Director: Marcelino Lopez MD Nitrite,Ur Negative Normal [facility] Comment on above: Performed By: #### U AX, UMICAO ####[address] [place] [address] Lab Director: Marcelino Lopez MD PH,Ur 6.0 Normal 5.0-9.0 [facility] Comment on above: Performed By: #### U AX, UMICAO ####[address] [place] [address] Lab Director: Marcelino Lopez MD Protein Ql (U) Negative Normal NEG [facility] Comment on above: Performed By: #### U AX, UMICAO ####[address] [place] [address] Lab Director: Marcelino Lopez MD Spec. [place],Ur 1.025 High 1.010-1.020 [facility] Comment on above: Performed By: #### U AX, UMICAO ####[address] [place] [address] lab Director: Marcelino Lopez MD Urobilinogen,Ur Normal Normal 0.0-1.0 [facility] Comment on above: Performed By: #### U AX, UMICAO ####[address] [place] [address] lab Director: Marcelino Lopez MD Urinalysis,Microon 3 Bacteria TRACE Abnormal NONE [facility] Comment on above: Performed By: #### U AX, UMICAO ####[address] [place] [address] lab Director: Marcelino Lopez MD Epithelial cells LM Ql (Urine sed) 0 TO 2 Normal 0-25 [facility] Comment on above: Performed By: #### U AX, UMICAO ####[address] , [place] 1184483 lab Director: Marcelino Lopez MD Urine RBC's GREATER THAN 100 Normal 0-2 [facility] Comment on above: Performed By: #### U AX, UMICAO ####[address] , [place] 596[address]83 lab Director: Marcelino Lopez MD Urine WBC's 0 TO 2 Normal 0-5 [facility] Comment on above: Performed By: #### U AX UMICAO ####[address] [place] [address] lab Director: Marcelino Lopez MD XR ANKLE [...] Ashley Claros MD 04/16/23 Final result Normal [facility] XR FOOT RIGHT (MIN 3 VIEWS)o n [...] Ashley Claros MD 04/16/23 Final result Normal [facility] Brain Natriuretic Peptideon 06-27-2022 Natriuretic peptide B (Bld) [Mass/Vol] pg/mL NINF - 300 pg/mL [facility] Comment on above: An age-independent cutoff point of 300 pg/ml has a 98% negative predictive value excluding acute heart failure. [facility] CBC with Auto Differentialon 06-27-2022 Absolute Eos # 0.37 [facility] Absolute Immature Granulocyte 0.05 [facility] Absolute Lymph # 2.77 [facility] Absolute [place] # 0.52 [facility] Basophils (Bld) [#/Vol] 0.07 10*3/uL [facility] Basophils/100 WBC (Bld) 1 % 0 - 2 % [facility] Eosinophils/100 WBC (Bld) 5 % High 1 - 4 % [facility] Hematocrit (Bld) [Volume fraction] 37.6 % 36.3 - 47.1 % [facility] Hemoglobin (Bld) [Mass/Vol] 12.2 g/dL 11.9 - 15.1 g/dL [facility] Immature granulocytes/100 WBC (Bld) 1 % High 0 [facility] Interpretation and review of laboratory results Abnormal [facility] Lymphocytes/100 WBC (Bld) 37 % 24 - 43 % [facility] [facility] MCH (RBC) [Entitic mass] 28.2 pg 25.2 - 33.5 pg [facility] MCHC (RBC) [Mass/Vol] 32.4 g/dL 28.4 - 34.8 g/dL [facility] MCV (RBC) [Entitic vol] 87.0 fL 82.6 - 102.9 fL [facility] Monocytes/100 WBC (Bld) 7 % 3 - 12 % [facility] NRBC Automated 0.0 0.0 per 100 WBC [facility] Platelet distribution width (Bld) [Ratio] 14.6 % High 11.8 - 14.4 % [facility] Platelet mean volume (Bld) [Entitic vol] 10.1 fL 8.1 - 13.5 fL [facility] Platelets (Bld) [#/Vol] 358 10*3/uL [facility] RBC (Bld) [#/Vol] 4.32 10*6/uL 3.95 - 5.1 1 m/uL [facility] Segmented neutrophils/100 WBC (Bld) 49 % 36 - 65 % [facility] Segs Absolute 3.71 [facility] WBC (Bld) [#/Vol] 7.5 10*3/uL [facility] CMPon 06-27-2022 Albumin [Mass/Vol] 3.8 g/dL 3.5 - 5.2 g/dL [facility] Albumin/Globulin [Mass ratio] 1.1 {ratio} 1.0 - 2.5 [facility] ALP [Catalytic activity/Vol] 91 U/L 35 - 104 U/L [facility] ALT [Catalytic activity/Vol] 9 U/L 5 - 33 U/L [facility] Anion gap [Moles/Vol] 9 mmol/L 9 - 17 mmol/L [facility] AST [Catalytic activity/Vol] 16 U/L NINF - 32 U/L [facility] Bilirubin [Mass/Vol] 0.2 mg/dL Low 0.3 - 1 .2 mg/dL [facility] Calcium [Mass/Vol] 8.7 mg/dL 8.6 - 10. 4 mg/dL [facility] Chloride [Moles/Vol] 105 mmol/L 98 - 10 7 mmol/L [facility] CO2 [Moles/Vol] 23 mmol/L 20 - 31 mmol/L [facility] Creatinine [Mass/Vol] 0.72 mg/dL 0.50 - 0.90 mg/dL [facility] GFR/1.73 sq M.predicted MDRD (S/P/Bld) [Vol rate/Area] - PINF [facility] Comment on above: These results are [...] [Mass/Vol] 96 mg/dL 70 - 99 mg/dL [facility] Interpretation and review of laboratory results Abnormal [facility] Potassium [Moles/Vol] 4.1 mmol/L 3.7 - 5.3 mmol/L [facility] Protein [Mass/Vol] 7.4 g/dL 6.4 - 8.3 g/dL [facility] Sodium [Moles/Vol] 137 mmol/L 135 - 144 mmol/L [facility] Urea nitrogen [Mass/Vol] 11 mg/dL 6 - 20 mg/dL [facility] Urea nitrogen/Creatinine (Bld) [Mass ratio] 15 9 - 20 [facility] Magnesiumon 06-27-2022 Magnesium [Mass/Vol] 2.2 mg/dL 1.6 - 2 .6 mg/dL [facility] No Panel Informationon 06-27 [facility] Troponinon 06-27-2022 Troponin I.cardiac DL <= 0.01 ng/mL [Mass/Vol] ng/L 0 - 14 ng/L [facility] Comment on above: High Sensitivity Tro ponin values cannot be compared with other Troponin methodologies. XR CHEST PORTABLEon 06-27-19 23 Unchanged appearance of the chest without acute airspace disease identified. [facility] EXAMINATION: ONE XRAY VIEW OF THE CHEST 06/27/2022 1:43 pm COMPARISON: 06/28/2020 HISTORY: ORDERING SYSTEM PROVIDED HISTORY: sob TECHNOLOGIST PROVIDED HISTORY: sob FINDINGS: The cardiomediastinal silhouette is unchanged in appearance. There is no consolidation, pneumothorax, or evidence of edema. No effusion is appreciated. The osseous structures are unchanged in appearance. [facility] Justus Oliva MD - [...] the chest without acute airspace disease identified. [facility] [employer] Work Phone: Radiology Study observation (narrative) [facility] [employer] Work Phone: XR CHEST PORTABLEOrdered By: Justus Oliva on 06-27-[address] [facility] [employer] Work Phone: CBC Auto Differentialon 12-13 Absolute Eos # 0.25 [facility] [employer] Absolute Immature Granulocyte 0.[address] [facility] [employer] Absolute Lymph # 2.56 [facility] [employer] Absolute Pecos # 0.52 [facility] [employer] Basophils (Bld) [#/Vol] 0.05 10*3/uL [facility] [employer] Basophils/100 WBC (Bld) 1 % 0 - 2 % [facility] [employer] Eosinophils/100 WBC (Bld) 3 % 1 - 4 % [facility] [employer] Hematocrit (Bld) [Volume fraction] 36.1 % Low 36.3 - 47.1 % [facility] Hemoglobin (Bld) [Mass/Vol] 11.0 g/dL Low 11.9 - 15.1 g/dL [facility] [employer] Immature granulocytes/100 WBC (Bld) 1 % High [address] [facility] [employer] Interpretation and review of laboratory results Abnormal [facility] Lymphocytes/100 WBC (Bld) 28 % 24 - 43 % [facility] MCH (RBC) [Entitic mass] 27.0 pg 25.2 - 33.5 pg [facility] MCHC (RBC) [Mass/Vol] 30.5 g/dL 28.4 - 34.8 g/dL [facility] MCV (RBC) [Entitic vol] 88.7 fL 82.6 - 102.[address] [facility] [employer] Monocytes/100 WBC (Bld) 6 % 3 - 12 % [facility] [employer] NRBC Automated 0.0 0.0 per 100 WBC [facility] Platelet distribution width (Bld) [Ratio] 14.1 % 11.8 - 14.4 % [facility] Platelet mean volume (Bld) [Entitic vol] 11.0 fL 8.1 - 13.5 fL [facility] Platelets (Bld) [#/Vol] 305 10*3/uL [facility] RBC (Bld) [#/Vol] 4.07 10*6/uL 3.95 - 5.1 1 m/uL [facility] Segmented neutrophils/100 WBC (Bld) 61 % 36 - 65 % [facility] Segs Absolute 5.88 [facility] WBC (Bld) [#/Vol] 9.3 10*3/uL [facility] Ferritinon 12-29-2021 Ferritin [Mass/Vol] 23 ng/mL 13 - 150 ng/mL [facility] Vitamin B12on 12-29-2021 Cobalamin (Vitamin B12) [Mass/Vol] 168 pg/mL Low 232 - 1245 pg/mL [facility] Interpretation and review of laboratory results Abnormal [facility] XR HUMERUS LEFT (MIN 2 VIEWS )Ordered By: Ebony Bonds on 02-12-2021 No acute osseous abnormality. [employer] Phone: EXAMINATION: TWO XRAY VIEWS OF THE LEFT HUMERUS 02/12/2021 5:05 pm COMPARISON: June 08, 2016 HISTORY: ORDERING SYSTEM PROVIDED HISTORY: pain TECHNOLOGIST PROVIDED HISTORY: pain FINDINGS: There is no evidence of acute fracture. There is normal alignment. No acute joint abnormality. No focal osseous lesion. No focal soft tissue abnormality. [employer] Phone: Mian, pn Incoming Radiant Results From [employer] - 02/12/2021 5:11 PM EDT EXAMINATION: TWO XRAY VIEWS OF THE LEFT HUMERUS 02/12/2021 5:05 pm COMPARISON: June 08, 2016 HISTORY: ORDERING SYSTEM PROVIDED HISTORY: pain TECHNOLOGIST PROVIDED HISTORY: pain FINDINGS: There is no evidence of acute fracture. There is normal alignment. No acute joint abnormality. No focal osseous lesion. No focal soft tissue abnormality. IMPRESSION: No acute osseous abnormality. [employer] Work Phone: [employer] Work Phone: CBC AUTO DIFFon 01-14-2021 BASO # 0.1 103/ul Normal 0.0-0.1 [facility] Comment on above: Performed By: #### C BC #### [facility] [address] [id number] Lan Karolina Basophils/100 WBC (Bld) 0.9 % Normal 0.2-2.0 [facility] Comment on above: Performed By: #### C BC #### [facility] [address] [id number] [place] Karolina EO # 0.3 103/ul Normal 0.0-0.7 [facility] Comment on above: Performed By: #### C BC #### [facility] [address] [id number] [place]olina Eosinophils/100 WBC (Bld) 4.3 % Normal 0.9-7.0 [facility] Comment on above: Performed By: #### C BC #### [facility] [address] [id number] [place]olina Erythrocyte distribution width (RBC) [Ratio] 12.7 % Normal 11.0-15.0 [facility] Comment on above: Performed By: #### C BC #### [facility] [address] [id number] [place]olina Hematocrit (Bld) [Volume fraction] 39.3 % Normal 36.0-48.0 [facility] Comment on above: Performed By: #### C BC #### [facility] [address] [id number] [place]ina Hemoglobin (Bld) [Mass/Vol] 12.6 g/dL Normal 12.0-16.0 [facility] Comment on above: Performed By: #### C BC #### [facility] [address] [id number] Lan Karolina IG # 0.03 10e3/ul Normal 0.00-0.03 [facility] Comment on above: Performed By: #### C BC #### [facility] [address] [id number] [place] Karolina IG % 0.5 % Normal 0.0-0.5 [facility] Comment on above: Performed By: #### C BC #### [facility] [address] [place] [address] Lan Karolina LYMPH # 2.1 103/ul Normal 1.2-3.8 [facility] Comment on above: Performed By: #### C BC #### [facility] [address] [place] [address] Lanadrian Turcios Lymphocytes/100 WBC (Bld) 32.9 % Normal 20.5-60.0 [facility] Comment on above: Performed By: #### C BC #### [facility] [address] [place] [address] Lanadrian Turcios MANUAL DIFF REQ NO Normal [facility] Comment on above: Performed By: #### C BC #### [facility] [address] [place], [place] [id number] Lan Karolina MCH (RBC) [Entitic mass] 28.8 pg Normal 26.7-34.0 [facility] Comment on above: Performed By: #### C BC #### [facility] [address] [place] [address] Lanadrian Turcios MCHC (RBC) [Mass/Vol] 32.1 g/dL Normal 29.9-35.2 [facility] Comment on above: Performed By: #### C BC #### [facility] [address] [place] [address] Lan Karolina MCV (RBC) [Entitic vol] 89.7 fL Normal 81.0-99.0 [facility] Comment on above: Performed By: #### C BC #### [facility] [address] [place] [address] Lan Karolina MONO # 0.6 103/ul Normal 0.3-0.8 [facility] Comment on above: Performed By: #### C BC #### [facility] [address] [place] [address] Lan Karolina Monocytes/100 WBC (Bld) 10.1 % Normal 1.7-12.0 [facility] Comment on above: Performed By: #### C BC #### [facility] [address] [place], [place] [id number] Lan Mendesen NEUT # 3.2 103/ul Normal 1.4-6.5 [facility] Comment on above: Performed By: #### C BC #### [facility] [address] [place], [place] [id number] Lan Mendesen Neutrophils/100 WBC (Bld) 51.3 % Normal 43.0-75.0 [facility] Comment on above: Performed By: #### C BC #### [facility] [address] [place], [place] [id number] Lan Turcios Platelet mean volume (Bld) [Entitic vol] 11.3 fL Normal 9.5-13.5 [facility] Comment on above: Performed By: #### C BC #### [facility] [address] [place], [place] [phone] Lan Karolina PLT 316 103/ul Normal 150-450 [facility] Comment on above: Performed By: #### C BC #### [facility] [address] [place], [place] [phone] Lan Karolina RBC 4.38 106/ul Normal 4.20-5.40 [facility] Comment on above: Performed By: #### C BC #### [facility] [address] [place], [place] [id number] Lan Karolina WBC 6.3 103/ul Normal 4.0-11.0 [facility] Comment on above: Performed By: #### C BC #### [facility] [address] [place], [place] [phone] [place] CT ABD/PELV W CONon 01-15-[address] [...] PING OWENS Date: 2021-01-14 17:54 Normal [facility] ER URINE PROFILEon 1 Bilirubin Ql (U) Negative Normal NEGATIVE [facility] Comment on above: Performed By: #### E RUR #### [facility] [address] [place], [place] [address] Lan Karolina Clarity (U) SL CLOUDY Abnormal CLEAR [facility] Comment on above: Performed By: #### E RUR #### [facility] [address] [place], [place] [address] Lan Karolina Color (U) LT. YELLOW Normal YELLOW [facility] Comment on above: Performed By: #### E RUR #### [facility] [address] [phone] Lan Karolina ERUAHD A micrscopic examination will be performed if indicated. Normal [facility] Comment on above: Performed By: #### E RUR #### [facility] [address] [place] [address] Lan Karolina Glucose Ql (U) Negative Normal NEGATIVE [facility] Comment on above: Performed By: #### E RUR #### [facility] [address] [place] [address] Lan Karolina Hemoglobin Ql (U) Negative Normal NEGATIVE [facility] Comment on above: Performed By: #### E RUR #### [facility] [address] [place] [address] Lan Karolina Ketones Ql (U) Negative Normal NEGATIVE [facility] Comment on above: Performed By: #### E RUR #### [facility] [address] [place] [address] Lan Karolina LEUKOCYTES Negative Normal NEGATIVE [facility] Comment on above: Performed By: #### E RUR #### [facility] [address] [place] [address] Lan Karolina Nitrite Ql (U) Negative Normal NEGATIVE [facility] Comment on above: Performed By: #### E RUR #### [facility] [address] [place] [address] Lan Karolina pH (U) 5.0 [pH] Normal 5-9 [facility] Comment on above: Performed By: #### E RUR #### [facility] [address] [place] [address] Lan Karolina SPEC GRAVITY 1.020 Normal 1.005-<=1.02 5 [facility] Comment on above: Performed By: #### E RUR #### [facility] [address] [place] [address] Lan Karolina UA PROTEIN Negative Normal NEGATIVE/ TRACE [facility] Comment on above: Performed By: #### E RUR #### [facility] [address] [place] [address] Lan Turcios UR MICRO IND NOT INDICATED Normal [facility] Comment on above: Performed By: #### E RUR #### [facility] [address] [place], [place] [phone] Lan Turcios Urobilinogen Qn (U) 0.2 {Marques'U}/dL Normal 0.2 - 1. 0 [facility] Comment on above: Performed By: #### E RUR #### [facility] [address] [place] [address] Lan Turcios LACTATE/LACTIC ACIDon 2020 Lactate [Moles/Vol] 0.9 mmol/L Normal 0.7-2.0 [facility] Comment on above: Performed By: #### L ACT #### [facility] [address] [place] [address] Lan Turcios LIPASEon 01-14-2021 Lipase [Catalytic activity/Vol] 42.0 U/L Normal 23.0-300.0 [facility] Comment on above: Performed By: #### C PATRICIA, LIPA #### [facility] [address] [place], [place] [id number] Lanadrian Turcios PREG HCG QUALon 01-14-2021 , QUAL Negative Normal NEGATIVE [facility] Comment on above: Performed By: #### P REG #### [facility] [address] [place], [place] [phone] Lan Mendesen PROF 14(COMP METB)on 021 Albumin [Mass/Vol] 3.7 g/dL Normal 3.5-5.0 [facility] Comment on above: Performed By: #### C MP, LIPA #### [facility] [address] [place], [place] [phone] Lanadrian Mendesen Albumin/Globulin [Mass ratio] 0.8 {ratio} Normal [facility] Comment on above: Performed By: #### C MP, LIPA #### [facility] [address] [place], [place] [phone] Lan Karolina ALP [Catalytic activity/Vol] 84 U/L Normal 38-126 [facility] Comment on above: Performed By: #### C MP, LIPA #### [facility] [address] [place], [place] [address] Lan Karolina ALT [Catalytic activity/Vol] 22 U/L Normal 9-52 [facility] Comment on above: Performed By: #### C MP, LIPA #### [facility] [address] [place], [place] [address] Lan Karolina Anion gap [Moles/Vol] 14.3 mmol/L Normal Th [facility] Comment on above: Performed By: #### C MP, LIPA #### [facility] [address] [place], [place] [address] Lan Karolina AST [Catalytic activity/Vol] 17 U/L Normal 14-36 [facility] Comment on above: Performed By: #### C MP, LIPA #### [facility] [address] [address] Lan Karolina Bilirubin [Mass/Vol] 0.3 mg/dL Normal 0.2-1.3 [facility] Comment on above: Performed By: #### C MP, LIPA #### [facility] [address] [place], [place] [address] Lan Karolina Calcium [Mass/Vol] 9.8 mg/dL Normal 8.4-10.2 [facility] Comment on above: Performed By: #### C MP, LIPA #### [facility] [address] [phone] Lan Karolina Chloride [Moles/Vol] 102 mmol/L Normal 98-107 [facility] Comment on above: Performed By: #### C MP, LIPA #### [facility] [address] [place], [place] [address] Lan Karolina CO2 [Moles/Vol] 27.7 mmol/L Normal 22.0-30.0 [facility] Comment on above: Performed By: #### C MP, LIPA #### [facility] [address] [place], [place] [address] Lan Karolina Creatinine [Mass/Vol] 0.70 mg/dL Normal 0.52-1.04 [facility] Comment on above: Performed By: #### C MP, LIPA #### [facility] [address] [place], [place] [address] Lan Karolina EGFR-AF JAMA[place] >60 Normal >=60 [facility] Comment on above: Performed By: #### C MP, LIPA #### [facility] [address] [phone] Lan Karolina EGFR-NON AF [place] >60 Normal >=60 [facility] Comment on above: Performed By: #### C MP, LIPA #### [facility] [address] [phone] Lan Karolina Globulin (S) [Mass/Vol] 4.4 g/dL Normal [facility] Comment on above: Performed By: #### C MP, LIPA #### [facility] [address] [address] Lan Karolina Glucose [Mass/Vol] 108 mg/dL Critically high 74-106 [facility] Comment on above: Performed By: #### C MP, LIPA #### [facility] [address] [address] Lan Karolina Potassium [Moles/Vol] 4.0 mmol/L Normal 3.4-5.0 [facility] Comment on above: Performed By: #### C MP, LIPA #### [facility] [address] [place] [address] Lan Karolina Protein [Mass/Vol] 8.1 g/dL Normal 6.1-8.2 [facility] Comment on above: Performed By: #### C MP, LIPA #### [facility] [address] [address] Lan Karolina Sodium [Moles/Vol] 140 mmol/L Normal 137-145 [facility] Comment on above: Performed By: #### C MP, LIPA #### [facility] [address] [address] Lan Karolina Urea nitrogen [Mass/Vol] 12.0 mg/dL Normal 7.0-17.0 [facility] Comment on above: Performed By: #### C MP, LIPLissett #### [facility] [address] [place] [address] Lan Turcios Urea nitrogen/Creatinine [Mass ratio] 17.1 mg/mg Normal [facility] Comment on above: Performed By: #### C MP, LIPA #### [facility] [address] [place], [place] [phone] Lan Turcios PROTIMEon 01-14-2021 INR Coag (PPP) [Relative time] 0.96 {INR} Normal [facility] Comment on above: Performed By: #### P TT, PT #### [facility] [address] [place], [place] [phone] Lan Turcios INR GUIDELINES SEE BELOW Normal [facility] Comment on above: Result Comment: BRANT RED INR: 2.0 - 3.0 CONDITIONS NOT LISTED BELOW 2.5 - 3.5 FOR PROSTHETIC HEART VALVE REPLACEMENT 2.5 - 3.5 RECURRENT THROMBOSIS Performed By: #### P TT, PT #### [facility] [address] [place] [address] Lan Turcios PT Coag (PPP) [Time] 10.4 s Normal 9.0-11.6 [facility] Comment on above: Performed By: #### P TT, PT #### [facility] [address] [place] [address] Lan Turcios PTTon 01-14-2021 aPTT Coag (Bld) [Time] 26.8 s Normal 22.3-36.2 [facility] Comment on above: Performed By: #### P TT, PT #### [facility] [address] [place], [place] [phone] Lan Turcios Basic Metabolic PanelOrdered By: Maynor Rivera on 11-25-2020 Anion gap [Moles/Vol] 12 mmol/L 9 - 17 mmol/L [employer] Work Phone: Calcium [Mass/Vol] 7.6 mg/dL Low 8.6 - 10. 4 mg/dL [employer] Phone: Chloride [Moles/Vol] 104 mmol/L 98 - 10 7 mmol/L [employer] Phone: CO2 [Moles/Vol] 20 mmol/L 20 - 31 mmol/L [employer] Work Phone: Creatinine [Mass/Vol] 0.55 mg/dL 0.50 - 0.90 mg/dL [employer] Phone: GFR >60 >60 mL/min [employer] Work Phone: GFR Non- >60 >60 mL/min [employer] Work Phone: Glucose [Mass/Vol] 127 mg/dL High 70 - 99 mg/dL [employer] Phone: Interpretation and review of laboratory results Abnormal [employer] Phone: Potassium [Moles/Vol] 4.1 mmol/L 3.7 - 5.3 mmol/L [employer] Phone: Sodium [Moles/Vol] 136 mmol/L 135 - 144 mmol/L [employer] Phone: Urea nitrogen (BldV) [Mass/Vol] 12 mg/dL 6 - 20 mg/dL [employer] Work Phone: Urea nitrogen/Creatinine (Bld) [Mass ratio] 22 High [employer] Work Phone: [employer] Work Phone: CBC Auto DifferentialOrdered By: Maynor Rivera on 11-25-2020 Absolute Eos # 0.[address] [facility] Work Phone: Absolute Immature Granulocyte 0.03 [employer] Work Phone: Absolute Lymph # 2.39 [employer] [facility] Work Phone: Absolute Pecos # 0.67 [employer] [facility] Work Phone: Basophils (Bld) [#/Vol] 0.07 10*3/uL [employer] Work Phone: Basophils/100 WBC (Bld) 1 % 0 - 2 % [employer] Phone: Differential Type NOT REPORTED [facility] Phone: Eosinophils/100 WBC (Bld) 4 % 1 - 4 % [facility] Phone: Hematocrit (Bld) [Volume fraction] 38.3 % 36.3 - 47.1 % [facility] Phone: Hemoglobin.gastrointes tinal spec 1 Ql (Stl) 12.0 g/dL 11.9 - 15.1 g/dL [facility] Phone: Immature granulocytes/100 WBC (Bld) 1 % High 0 [facility] Phone: Interpretation and review of laboratory results Abnormal [facility] Phone: Lymphocytes/100 WBC (Bld) 37 % 24 - 43 % [facility] Phone: MCH (RBC) [Entitic mass] 29.8 pg 25.2 - 33.5 pg [facility] Phone: MCHC (RBC) [Mass/Vol] 31.3 g/dL 28.4 - 34.8 g/dL [facility] Phone: MCV (RBC) [Entitic vol] 95.0 fL 82.6 - 102.9 fL [facility] Phone: Monocytes/100 WBC (Bld) 11 % 3 - 12 % [facility] Phone: NRBC Automated 0.0 0.0 per 100 WBC [facility] Phone: Platelet distribution width (Bld) [Ratio] 13.5 % 11.8 - 14.4 % [facility] Phone: Platelet Estimate NOT REPORTED [facility] Phone: Platelet mean volume (Bld) [Entitic vol] 10.5 fL 8.1 - 13.5 fL [facility] Phone: Platelets (Bld) [#/Vol] 314 10*3/uL [facility] Phone: RBC (Bld) [#/Vol] 4.03 10*6/uL 3.95 - 5.1 1 m/uL [facility] Phone: RBC (Bld) [#/Vol] NOT REPORTED [facility] Phone: Segmented neutrophils/100 WBC (Bld) 46 % 36 - 65 % [facility] Phone: Segs Absolute 2.96 [employer] Work Phone: WBC (Bld) [#/Vol] 6.4 10*3/uL [facility] Phone: WBC (Bld) [#/Vol] NOT REPORTED [facility] Phone: Beddit Phone: Laboratory - Chemistry and C hemistry - challengeOrdered By: Maynor Rivera on 11-25-2020 GFR/1.73 sq M.predicted MDRD (S/P/Bld) [Vol rate/Area] [facility] Phone: Comment on above: Average GFR for 40-4 9 years old: 99 mL/min/1.73sq m Chronic Kidney Disease: <60 mL/min/1.73sq m Kidney failure: <15 mL/min/1.73sq m eGFR calculated using average adult body mass. Additional eGFR calculator available at: http://www.[employer].com/multiple_crcl_2012.htm Stage 1: Some kidney damage normal GFR Stage 2: Mild kidney damage GFR 60-89 Stage 3: Moderate kidney damage GFR 30-59 Stage 4: Severe kidney damage GFR 15-29 Stage 5: Severe kidney damage GFR <15 ESRD - chronic treatment by dialysis or transplant PTH, IntactOrdered By: Maynor Rivera on 11-25-2020 Interpretation and review of laboratory results Abnormal [facility] Phone: Pth Intact 105.3 pg/mL High 15.0 - 65.0 pg/mL [facility] Phone: Comment on above: SAMPLES FROM PATIENT S ROUTINELY RECEIVING HIGH DOSE BIOTIN THERAPY MAY SHOW FALSELY DEPRESSED RESULTS. ADDITIONAL INFORMATION MAY BE REQUIRED FOR DIAGNOSIS. [facility] Phone: TSH With Reflex [id number] B y: Maynor Rivera on 11-25-2020 TSH Qn 2.04 m[IU]/L [facility] Phone: [facility] Phone: Vitamin B12 & FolateOrdered By: Maynor Rivera on 11-25-2020 Cobalamin (Vitamin B12) [Mass/Vol] 248 pg/mL 232 - 1245 pg/mL [facility] Phone: Folate 9.2 ng/mL >4.8 [facility] Phone: [facility] Phone: Vitamin D 25 HydroxyOrdered By: Maynor Rivera on 11-25-2020 Interpretation and review of laboratory results Abnormal [facility] Phone: Vit D, 25-Hydroxy 6.3 ng/mL Low 30.0 - 100 .0 ng/mL [facility] Phone: Comment on above: Reference Range: Vitamin D status Range Deficiency <20 ng/mL Mild Deficiency 20-30 ng/mL Sufficiency 30-100 ng/mL Toxicity >100 ng/mL [facility] Phone: Otheron 06-28-2020 EXAMINATION: THREE XRAY VIEWS [...] right-sided rib fracture deformity evident. Prior cholecystectomy. [employer] Work Phone: Mian, Mhpn Incoming Radiant Results From [facility]/[employer] - 06/28/2020 2:42 PM EST EXAMINATION: THREE [...] acute displaced right-sided rib fracture deformity evident. [facility] Phone: Left shoulder: No acute fracture or dislocation. Left hand: No acute fracture or dislocation. Right knee: No acute fracture or dislocation. Pelvis: No acute osseous abnormality. Chest/right-sided ribs: 1. No acute focal airspace consolidation. 2. No acute displaced right-sided rib fracture deformity evident. [facility] Phone: CBC Auto Differentialon Basophils (Bld) [#/Vol] 0.07 10*3/uL [place] Basophils/100 WBC (Bld) 1 % 0 - 2 % [place] Differential Type NOT REPORTED [place] Eosinophils (Bld) [#/Vol] 0.28 10*3/uL [place] Eosinophils/100 WBC (Bld) 4 % 1 - 4 % [place] Erythrocyte distribution width (RBC) [Ratio] 13.9 % 11.8 - 14.4 % [place] Hematocrit (Bld) [Volume fraction] 40.5 % 36.3 - 47.1 % [place] Hemoglobin (Bld) [Mass/Vol] 12.9 g/dL 11.9 - 15.1 g/dL [place] Immature granulocytes (Bld) [#/Vol] 0.04 10*3/uL [place] Immature granulocytes (Bld) [#/Vol] 1 % High 0 [place] Interpretation and review of laboratory results Abnormal [place] Lymphocytes (Bld) [#/Vol] 3.14 10*3/uL [place] Lymphocytes/100 WBC (Bld) 39 % 24 - 43 % [place] MCH (RBC) [Entitic mass] 29.1 pg 25.2 - 33.5 pg [place] MCHC (RBC) [Mass/Vol] 31.9 g/dL 28.4 - 34.8 g/dL [place] MCV (RBC) [Entitic vol] 91.4 fL 82.6 - 102.9 fL [place] Monocytes (Bld) [#/Vol] 0.58 10*3/uL [place] Monocytes/100 WBC (Bld) 7 % 3 - 12 % [place] Platelet mean volume (Bld) [Entitic vol] 10.3 fL 8.1 - 13.5 fL [place] Platelets (Bld) [#/Vol] 365 10*3/uL [place] Platelets (Bld) [#/Vol] NOT REPORTED [place] RBC (Bld) [#/Vol] 4.43 10*6/uL 3.95 - 5.1 1 m/uL [place] RBC morphology finding Nom (Bld) NOT REPORTED [place] Segmented neutrophils/100 WBC (Bld) 48 % 36 - 65 % [place] Segs Absolute 3.98 [place] WBC (Bld) [#/Vol] 0.0 10*3/uL 0.0 per 10 0 WBC [place] WBC (Bld) [#/Vol] 8.1 10*3/uL [place] WBC Morphology NOT REPORTED [place] Ferritinon 05-22-2020 Ferritin [Mass/Vol] 157 ug/L High 13 - 150 ug/L [place] Interpretation and review of laboratory results Abnormal [place] XR CHEST PORTABLEon 04-04-20 No acute cardiopulmonary abnormality. [place] EXAMINATION: ONE XRAY VIEW OF THE CHEST 04/04/2020 9:31 pm COMPARISON: 06/23/2019 HISTORY: ORDERING SYSTEM PROVIDED HISTORY: cough TECHNOLOGIST PROVIDED HISTORY: cough FINDINGS: The lungs are clear. The cardiac and mediastinal contours are normal. There is no pleural effusion or pneumothorax. No acute osseous abnormality is identified. [place] Mian, Mhpn Incoming Radiant Results From [facility] - 04/04/2020 9:46 PM EST EXAMINATION: ONE XRAY VIEW OF THE CHEST 04/04/2020 9:31 pm COMPARISON: 06/23/2019 HISTORY: ORDERING SYSTEM PROVIDED HISTORY: cough TECHNOLOGIST PROVIDED HISTORY: cough FINDINGS: The lungs are clear. The cardiac and mediastinal contours are normal. There is no pleural effusion or pneumothorax. No acute osseous abnormality is identified. IMPRESSION: No acute cardiopulmonary abnormality. [place] Basic Metabolic Panelon 07-0 Anion gap [Moles/Vol] 13 mmol/L 9 - 17 mmol/L [place] Bun/Cre Ratio 20 [place] Calcium [Mass/Vol] 9.3 mg/dL 8.6 - 10. 4 mg/dL [place] Chloride [Moles/Vol] 103 mmol/L 98 - 10 7 mmol/L [place] CO2 [Moles/Vol] 21 mmol/L 20 - 31 mmol/L [place] Creatinine [Mass/Vol] 0.59 mg/dL 0.5 - 0.9 mg/dL [place] GFR >60 >60 mL/min [place] GFR Non- >60 >60 mL/min [place] Glucose [Mass/Vol] 105 mg/dL High 70 - 99 mg/dL [place] Interpretation and review of laboratory results Abnormal [place] Potassium [Moles/Vol] 4.0 mmol/L 3.7 - 5.3 mmol/L [place] Sodium [Moles/Vol] 137 mmol/L 135 - 144 mmol/L [place] Urea nitrogen [Mass/Vol] 12 mg/dL 6 - 20 mg/dL [place] CBC Auto Differentialon 07-0 1-2020 Basophils (Bld) [#/Vol] 0.07 10*3/uL [place] Basophils/100 WBC (Bld) 1 % 0 - 2 % [place] Differential Type NOT REPORTED [place] Eosinophils (Bld) [#/Vol] 0.35 10*3/uL [place] Eosinophils/100 WBC (Bld) 4 % 1 - 4 % [place] Erythrocyte distribution width (RBC) [Ratio] 13.7 % 11.8 - 14.4 % [place] Hematocrit (Bld) [Volume fraction] 42.7 % 36.3 - 47.1 % [place] Hemoglobin (Bld) [Mass/Vol] 13.8 g/dL 11.9 - 15.1 g/dL [place] Immature granulocytes (Bld) [#/Vol] 10*3/uL [place] Immature granulocytes (Bld) [#/Vol] 0 % 0 [place] Lymphocytes (Bld) [#/Vol] 2.35 10*3/uL [place] Lymphocytes/100 WBC (Bld) 27 % 24 - 43 % [place] MCH (RBC) [Entitic mass] 28.9 pg 25.2 - 33.5 pg [place] MCHC (RBC) [Mass/Vol] 32.3 g/dL 28.4 - 34.8 g/dL [place] MCV (RBC) [Entitic vol] 89.3 fL 82.6 - 102.9 fL [place] Monocytes (Bld) [#/Vol] 0.49 10*3/uL [place] Monocytes/100 WBC (Bld) 6 % 3 - 12 % [place] Platelet mean volume (Bld) [Entitic vol] 10.8 fL 8.1 - 13.5 fL [place] Platelets (Bld) [#/Vol] NOT REPORTED [place] Platelets (Bld) [#/Vol] 348 10*3/uL [place] RBC (Bld) [#/Vol] 4.78 10*6/uL 3.95 - 5.1 1 m/uL [place] RBC morphology finding Nom (Bld) NOT REPORTED [place] Segmented neutrophils/100 WBC (Bld) 62 % 36 - 65 % [place] Segs Absolute 5.35 [place] WBC (Bld) [#/Vol] 0.0 10*3/uL 0.0 per 10 0 WBC [place] WBC (Bld) [#/Vol] 8.6 10*3/uL [place] WBC Morphology NOT REPORTED [place] ABDOMEN PELVIS W IV CONTR Mazin 11-13-2019 Mian, Mhpn Incoming Radiant Results From [facility]/[employer] - 11/13/2019 9:48 AM EDT EXAMINATION: CT [...] evidence for urinary obstruction. RECOMMENDATIONS: Insert apart [place], [place] EXAMINATION: CT OF THE ABDOMEN AND [...] No lymphadenopathy within the abdomen or pelvis. [place] No evidence for acute intra-abdominal or intrapelvic pathology. No bowel obstruction or inflammation. No free intraperitoneal air or fluid. No evidence for urinary obstruction. RECOMMENDATIONS: Insert apart [place] Lactate, Sepsison 11-13-2019 Lactic Acid, Sepsis 0.8 mmol/L 0.5 - 1. 9 mmol/L [place] Lactic Acid, Sepsis, Whole Blood NOT REPORTED 0.5 - 1.9 mmol/L [place] Lipaseon 11-13-2019 Lipase [Catalytic activity/Vol] 15 U/L 13 - 60 U/L [place] Metabolic Panelon 11-13-2019 GFR/1.73 sq M predicted among non-blacks MDRD (S/P/Bld) [Vol rate/Area] [place] Comment on above: Average GFR for 40-4 9 years old: 99 mL/min/1.73sq m Chronic Kidney Disease: <60 mL/min/1.73sq m Kidney failure: <15 mL/min/1.73sq m eGFR calculated using average adult body mass. Additional eGFR calculator available at: http://www.[employer]/Telcare_crcl_2012.htm Stage 1: Some kidney damage normal GFR Stage 2: Mild kidney damage GFR 60-89 Stage 3: Moderate kidney damage GFR 30-59 Stage 4: Severe kidney damage GFR 15-29 Stage 5: Severe kidney damage GFR <15 ESRD - chronic treatment by dialysis or transplant , Urineon 0 Beta HCG ( test) Ql (U) Negative NEGATIVE [place] Comment on above: Specimens with hCG l evels near the threshold of the test (25 mIU/mL) may give a negative or indeterminate result. In such cases, another test should be performed with a new specimen in 48-72 hours. If early is suspected clinically in this setting, correlation with quantitative serum b-hCG level is suggested. [facility] has confirmed the use of plasma for this test. This has not been cleared or approved by the U.S. Food and Drug Administration. The FDA has determined that such clearance is not necessary. Urinalysis with microscopico n 11-03-2019 Amorphous, UA NOT REPORTED None [place] Bacteria, UA 1+ Abnormal None [place] Bilirubin Urine Negative NEGATIVE [place] Casts UA NOT REPORTED /LPF [place] Color, UA YELLOW YELLOW [place] Crystals, UA NOT REPORTED None /HPF [place], [place] Epithelial Cells UA 5 TO 10 [place] Glucose, Ur Negative NEGATIVE [place] Interpretation and review of laboratory results Abnormal [place] Ketones Ql (U) Negative NEGATIVE [place], [place] Leukocyte esterase Test strip Ql (U) Negative NEGATIVE [place] Mucus, UA TRACE Abnormal None [place] Nitrite, Urine Negative NEGATIVE [place], [place] Other Observations UA NOT REPORTED NOT REQ. [place] pH, UA 6.0 [place] Protein (U) [Mass/Vol] Negative NEGATIVE [place] RBC (U) [#/Vol] None [place] Renal Epithelial, UA NOT REPORTED 0 /HPF [place] Specific [place], UA 1.020 [place], [place] Trichomonas, UA NOT REPORTED None [place], [place] Turbidity UA SLIGHTLY CLOUDY Abnormal CLEAR [place] Urinalysis Comments NOT REPORTED [place] Urine Hgb Negative NEGATIVE [place] Urobilinogen, Urine Normal Normal [place] WBC, UA 2 TO 5 [place] Yeast, UA NOT REPORTED None [place] - [place] XR LUMBAR SPINE (2-3 VIEWS)o n 11-03-2019 1. No radiographic evidence of acute lumbar spine trauma. 2. Moderate L5/S1 spondylosis. [place] Mian, Mhpn Incoming Radiant Results From [facility] - 11/03/2019 1:34 AM EDT EXAMINATION: THREE [...] lumbar spine trauma. 2. Moderate L5/S1 spondylosis. [place] EXAMINATION: THREE XRAY VIEWS OF THE [...] normal limits. Paravertebral soft tissues are unremarkable. [place] B12/Folate Panelon 0 Cobalamin (Vitamin B12) [Mass/Vol] 215 pg/mL Low 232-1245 [facility] Comment on above: Performed By: #### Giovanna 12FOL FERI, [id number] #### [facility] [employer] [address] [place] [id number] Veneer Grader: Higinio Bullock MD Folic Acid 12.7 ng/mL Normal >4.8 [facility] Comment on above: Performed By: #### Giovanna 12FOL FERI, VD25 #### [employer] [address] [place] [id number] Veneer Grader: Higinio Bullock MD Ferritinon 07-19-2019 Ferritin [Mass/Vol] 14 ug/L Normal 13-150 [facility] Comment on above: Performed By: #### Giovanna 12FOL, FERI, VD25 #### [employer] [address] [place] [id number] Veneer Grader: Higinio Bullock MD Vitamin D 25 OHon 07-19-2019 Vitamin D 25 OH 6.5 ng/mL Low 30.0-100.0 [facility] Comment on above: Result Comment: Reference Range: Vitamin D status Range Deficiency <20 ng/mL Mild Deficiency 20-30 ng/mL Sufficiency 30-100 ng/mL Toxicity >100 ng/mL Performed By: #### B 12FOL, FERI, VD25 #### [employer] [address] [place] [id number] Veneer Grader: Higinio Bullock MD Ferritinon 07-18-2019 Ferritin [Mass/Vol] 14 ug/L 13 - 150 ug/L [place] Vitamin B12 & Folateon 07-17 Cobalamin (Vitamin B12) [Mass/Vol] 215 pg/mL Low 232 - 1245 pg/mL [place] Folate 12.7 ng/mL >4.8 [place] Interpretation and review of laboratory results Abnormal [place] Vitamin D 25 Hydroxyon 07-17 Interpretation and review of laboratory results Abnormal [place] Vit D, 25-Hydroxy 6.5 ng/mL Low 30 - 100 ng/mL [place] Comment on above: Reference Range: Vitamin D status Range Deficiency <20 ng/mL Mild Deficiency 20-30 ng/mL Sufficiency 30-100 ng/mL Toxicity >100 ng/mL Brain Natriuretic Peptideon 06-23-2019 Natriuretic peptide B (Bld) [Mass/Vol] Pro-BNP Reference Range: Beddit Phone: Comment on above: Rule Out: <300 [place]: Age <50 300-450 Age 50-75 300-900 Age >75 300-1800 Usually represents mild to moderate HF but other cardiopulmonary causes cannot be ruled out. Rule In: Age <50 >450 Age 50-75 >900 Age >75 >1800 Natriuretic peptide B (Bld) [Mass/Vol] pg/mL <300 pg/mL [facility] Phone: Comment on above: Pro-BNP results pawan ot be compared to BNP results. CBC Auto Differentialon Basophils (Bld) [#/Vol] 0.05 10*3/uL [facility] Phone: Basophils/100 WBC (Bld) 1 % 0 - 2 % [facility] Phone: Differential Type NOT REPORTED [facility] Phone: Eosinophils (Bld) [#/Vol] 0.28 10*3/uL [facility] Phone: Eosinophils/100 WBC (Bld) 3 % 1 - 4 % [facility] Phone: Erythrocyte distribution width (RBC) [Ratio] 14.6 % High 11.8 - 14.4 % [facility] Phone: Hematocrit (Bld) [Volume fraction] 38.8 % 36.3 - 47.1 % [facility] Phone: Hemoglobin (Bld) [Mass/Vol] 12.0 g/dL 11.9 - 15.1 g/dL [facility] Phone: Immature granulocytes (Bld) [#/Vol] 0.03 10*3/uL [facility] Phone: Immature granulocytes (Bld) [#/Vol] 0 % 0 [facility] Phone: Interpretation and review of laboratory results Abnormal [facility] Phone: Lymphocytes (Bld) [#/Vol] 2.83 10*3/uL [facility] Phone: Lymphocytes/100 WBC (Bld) 35 % 24 - 43 % [facility] Phone: MCH (RBC) [Entitic mass] 26.3 pg 25.2 - 33.5 pg [facility] Phone: MCHC (RBC) [Mass/Vol] 30.9 g/dL 28.4 - 34.8 g/dL [facility] Phone: MCV (RBC) [Entitic vol] 85.1 fL 82.6 - 102.9 fL [facility] Phone: Monocytes (Bld) [#/Vol] 0.56 10*3/uL [facility] Phone: Monocytes/100 WBC (Bld) 7 % 3 - 12 % [facility] Phone: Platelet mean volume (Bld) [Entitic vol] 11.2 fL 8.1 - 13.5 fL [facility] Phone: Platelets (Bld) [#/Vol] NOT REPORTED [employer] Work Phone: Platelets (Bld) [#/Vol] 360 10*3/uL [employer] Work Phone: RBC (Bld) [#/Vol] 4.56 10*6/uL 3.95 - 5.1 1 m/uL [employer] Work Phone: RBC morphology finding Nom (Bld) NOT REPORTED [employer] Work Phone: Segmented neutrophils/100 WBC (Bld) 54 % 36 - 65 % [employer] Work Phone: Segs Absolute 4.38 [employer] Work Phone: WBC (Bld) [#/Vol] 0.0 10*3/uL 0.0 per 10 0 WBC [facility] Phone: WBC (Bld) [#/Vol] 8.1 10*3/uL [employer] Work Phone: WBC Morphology NOT REPORTED [employer] [facility] Work Phone: Comprehensive Metabolic Pane l w/ Reflex to MGon 06-23-2019 Albumin [Mass/Vol] 4.5 g/dL 3.5 - 5.2 g/dL [facility] Phone: Albumin/Globulin [Mass ratio] 1.2 {ratio} [facility] Phone: ALP [Catalytic activity/Vol] 70 U/L 35 - 104 U/L [employer] Work Phone: ALT [Catalytic activity/Vol] 7 U/L 5 - 33 U/L [facility] Phone: Anion gap [Moles/Vol] 12 mmol/L 9 - 17 mmol/L [facility] Phone: AST [Catalytic activity/Vol] 32 U/L High <32 [facility] Phone: Bilirubin Ql (U) 0.30 mg/dL 0.3 - 1.2 mg/dL [facility] Phone: Bun/Cre Ratio 26 High [facility] Work Phone: Calcium [Mass/Vol] 9.0 mg/dL 8.6 - 10. 4 mg/dL [facility] Phone: Chloride [Moles/Vol] 100 mmol/L 98 - 10 7 mmol/L [facility] Phone: CO2 [Moles/Vol] 22 mmol/L 20 - 31 mmol/L [facility] Phone: Creatinine [Mass/Vol] 0.58 mg/dL 0.5 - 0.9 mg/dL [facility] Phone: GFR >60 >60 mL/min [employer] Phone: GFR Non- >60 >60 mL/min [facility] Phone: Glucose [Mass/Vol] 112 mg/dL High 70 - 99 mg/dL [facility] Phone: Interpretation and review of laboratory results Abnormal [facility] Phone: Potassium [Moles/Vol] 5.7 mmol/L High 3.7 - 5.3 mmol/L [facility] Phone: Protein [Mass/Vol] 8.3 g/dL 6.4 - 8.3 g/dL [facility] Phone: Sodium [Moles/Vol] 134 mmol/L Low 135 - 144 mmol/L [facility] Phone: Urea nitrogen [Mass/Vol] 15 mg/dL 6 - 20 mg/dL [facility] Phone: D-Dimer, Quantitativeon 02-0 9-2020 D-Dimer, Quant 0.39 [employer] Work Phone: Comment on above: Elevated levels [...] activity/Vol] 19 U/L 13 - 60 U/L [facility] Phone: Metabolic Panelon 06-23-2019 GFR/1.73 sq M predicted among non-blacks MDRD (S/P/Bld) [Vol rate/Area] Beddit Phone: Comment on above: Average GFR for 40-4 9 years old: 99 mL/min/1.73sq m Chronic Kidney Disease: <60 mL/min/1.73sq m Kidney failure: <15 mL/min/1.73sq m eGFR calculated using average adult body mass. Additional eGFR calculator available at: http://www.[employer]/multiple_crcl_2012.htm Stage 1: Some kidney damage normal GFR Stage 2: Mild kidney damage GFR 60-89 Stage 3: Moderate kidney damage GFR 30-59 Stage 4: Severe kidney damage GFR 15-29 Stage 5: Severe kidney damage GFR <15 ESRD - chronic treatment by dialysis or transplant Troponinon 06-23-2019 Troponin I.cardiac [Mass/Vol] NOT REPORTED [facility] Phone: Troponin T.cardiac [Mass/Vol] NOT REPORTED <0.03 ng/mL [facility] Phone: Troponin, High Sensitivity <6 0 - 14 ng/L [facility] Phone: Comment on above: High Sensitivity Troponin values cannot be compared with other Troponin methodologies. Patients with high levels of Biotin oral intake (i.e >5mg/day) may have falsely decreased Troponin levels. Samples collected within 8 hours of biotin intake may require additional information for diagnosis. Troponin I.cardiac [Mass/Vol] NOT REPORTED [facility] Phone: Troponin T.cardiac [Mass/Vol] NOT REPORTED <0.03 ng/mL [facility] Phone: Troponin, High Sensitivity <6 0 - 14 ng/L [facility] Phone: Comment on above: High Sensitivity Troponin values cannot be compared with other Troponin methodologies. Patients with high levels of Biotin oral intake (i.e >5mg/day) may have falsely decreased Troponin levels. Samples collected within 8 hours of biotin intake may require additional information for diagnosis. XR CHEST PORTABLEon 06-23-19 20 Mian, pn Incoming Radiant Results From [facility] [employer] - 06/23/2019 8:56 PM EST EXAMINATION: ONE XRAY VIEW OF THE CHEST 06/23/2019 8:47 pm COMPARISON: 01/30/2017 HISTORY: ORDERING SYSTEM PROVIDED HISTORY: DEMETRIUS GODWIN TECHNOLOGIST PROVIDED HISTORY: CP, DEMETRIUS Initial exam FINDINGS: The lungs are without acute focal process. There is no effusion or pneumothorax. The cardiomediastinal silhouette is without acute process. The osseous structures are without acute process. IMPRESSION: No acute process. [facility] Phone: EXAMINATION: ONE XRAY VIEW OF THE CHEST 06/23/2019 8:47 pm COMPARISON: 01/30/2017 HISTORY: ORDERING SYSTEM PROVIDED HISTORY: DEMETRIUS GODWIN TECHNOLOGIST PROVIDED HISTORY: CP, DEMETRIUS Initial exam FINDINGS: The lungs are without acute focal process. There is no effusion or pneumothorax. The cardiomediastinal silhouette is without acute process. The osseous structures are without acute process. [employer] Work Phone: No acute process. [employer] [facility] Work Phone: CBC Auto Differentialon 10-0 Basophils (Bld) [#/Vol] 0.07 10*3/uL [facility] [employer] [place] Basophils/100 WBC (Bld) 1 % 0 - 2 % [facility] [place] Differential Type NOT REPORTED [facility] [place] Eosinophils (Bld) [#/Vol] 0.38 10*3/uL [facility] [place] Eosinophils/100 WBC (Bld) 5 % High 1 - 4 % [facility] [place] Erythrocyte distribution width (RBC) [Ratio] 13.6 % 11.8 - 14.4 % [place] Hematocrit (Bld) [Volume fraction] 36.5 % 36.3 - 47.1 % [place] Hemoglobin (Bld) [Mass/Vol] 11.5 g/dL Low 11.9 - 15.1 g/dL [place] Immature granulocytes (Bld) [#/Vol] 10*3/uL [place] Immature granulocytes (Bld) [#/Vol] 0 % 0 [place] Interpretation and review of laboratory results Abnormal [place] Lymphocytes (Bld) [#/Vol] 2.86 10*3/uL [place] Lymphocytes/100 WBC (Bld) 40 % 24 - 43 % [place] MCH (RBC) [Entitic mass] 27.3 pg 25.2 - 33.5 pg [place] MCHC (RBC) [Mass/Vol] 31.5 g/dL 28.4 - 34.8 g/dL [place] MCV (RBC) [Entitic vol] 86.7 fL 82.6 - 102.9 fL [place] Monocytes (Bld) [#/Vol] 0.69 10*3/uL [place] Monocytes/100 WBC (Bld) 10 % 3 - 12 % [place] Platelet mean volume (Bld) [Entitic vol] 11.3 fL 8.1 - 13.5 fL [place] Platelets (Bld) [#/Vol] 347 10*3/uL [place] Platelets (Bld) [#/Vol] NOT REPORTED [place] RBC (Bld) [#/Vol] 4.21 10*6/uL 3.95 - 5.1 1 m/uL [place] RBC morphology finding Nom (Bld) NOT REPORTED [place] Segmented neutrophils/100 WBC (Bld) 44 % 36 - 65 % [place] Segs Absolute 3.08 [place] WBC (Bld) [#/Vol] 0.0 10*3/uL 0.0 per 10 0 WBC [place] WBC (Bld) [#/Vol] 7.1 10*3/uL [place] WBC Morphology NOT REPORTED [place] Comprehensive Metabolic Pane lea 02-20-2019 Albumin [Mass/Vol] 3.9 g/dL 3.5 - 5.2 g/dL [place] Albumin/Globulin [Mass ratio] 1.1 {ratio} [place] ALP [Catalytic activity/Vol] 68 U/L 35 - 104 U/L [place] ALT [Catalytic activity/Vol] 6 U/L 5 - 33 U/L [place] Anion gap [Moles/Vol] 13 mmol/L 9 - 17 mmol/L [place] AST [Catalytic activity/Vol] 13 U/L <32 [place] Bilirubin Ql (U) 0.31 mg/dL 0.3 - 1.2 mg/dL [place] Bun/Cre Ratio 15 [place] Calcium [Mass/Vol] 9.1 mg/dL 8.6 - 10. 4 mg/dL [place] Chloride [Moles/Vol] 104 mmol/L 98 - 10 7 mmol/L [place] CO2 [Moles/Vol] 22 mmol/L 20 - 31 mmol/L [place] Creatinine [Mass/Vol] 0.52 mg/dL 0.5 - 0.9 mg/dL [place] GFR >60 >60 mL/min [place] GFR Non- >60 >60 mL/min [place] Glucose [Mass/Vol] 90 mg/dL 70 - 99 mg/dL [place] Potassium [Moles/Vol] 3.8 mmol/L 3.7 - 5.3 mmol/L [place] Protein [Mass/Vol] 7.5 g/dL 6.4 - 8.3 g/dL [place] Sodium [Moles/Vol] 139 mmol/L 135 - 144 mmol/L [place] Urea nitrogen [Mass/Vol] 8 mg/dL 6 - 20 mg/dL [place] Ferritinon 02-20-2019 Ferritin [Mass/Vol] 15 ug/L 13 - 150 ug/L [place] Iron and TIBCon 02-20-2019 Iron [Mass/Vol] 50 ug/dL 37 - 145 ug/dL [place], [place] Iron Saturation 13 % Low 20 - 55 % [facility] [place] TIBC 384 ug/dL 250 - 450 ug/dL [place] UIBC 334 ug/dL 112 - 347 ug/dL [place] Metabolic Panelon 02-20-2019 GFR/1.73 sq M predicted among non-blacks MDRD (S/P/Bld) [Vol rate/Area] [place], [place] Comment on above: Average GFR for 40-4 9 years old: 99 mL/min/1.73sq m Chronic Kidney Disease: <60 mL/min/1.73sq m Kidney failure: <15 mL/min/1.73sq m eGFR calculated using average adult body mass. Additional eGFR calculator available at: [email or web address]_crcl_2012.htm Stage 1: Some kidney damage normal GFR Stage 2: Mild kidney damage GFR 60-89 Stage 3: Moderate kidney damage GFR 30-59 Stage 4: Severe kidney damage GFR 15-29 Stage 5: Severe kidney damage GFR <15 ESRD - chronic treatment by dialysis or transplant Otheron 02-20-2019 Interpretation and review of laboratory results Abnormal [place] Vitamin B12 & Folateon 02-20 Cobalamin (Vitamin B12) [Mass/Vol] 224 pg/mL Low 232 - 1245 pg/mL [place] Folate 10.1 ng/mL >4.8 [place] Interpretation and review of laboratory results Abnormal [place] Vitamin D 25 hydroxyon 02-20 Vit D, 25-Hydroxy 7.3 ng/mL Low 30 - 100 ng/mL [place] Comment on above: Reference Range: Vitamin [...] Strep DNA test is available upon request. [place] Special Requests NOT REPORTED [place] Specimen Description .THRO[place] Vital Signs Date Time Vital Sign Value Performing Clinician Raegani zack 03-21-2024 10:18-0500 Body height 162.6 cm Raygan Ciballi PA-C Work Phone: [facility] 03-21-2024 10:18-0500 Body mass index (BMI) [Ratio] 55.44 kg/m2 Raygan Ciballi PA-C Work Phone: [facility] 03-21-2024 10:18-0500 Body weight 146.51 kg Raygan meQuilibriumalli PA-C Work Phone: [facility] 03-21-2024 10:18-0500 Diastolic blood pressure 83 mm[Hg] Raygan meQuilibriumalli PA-C Work Phone: [facility] 03-21-2024 10:18-0500 SaO2% (BldA) [Mass fraction] 99 % Raygan Ciballi PA-C Work Phone: [facility] 03-21-2024 10:18-0500 Systolic blood pressure 144 mm[Hg] Raygan Ciballi PA-C Work Phone: [facility] 03-21-2024 09:23-0500 Body mass index (BMI) [Ratio] 55.53 kg/m2 Jean Paul Almanzar RD Work Phone: [facility] 03-21-2024 09:23-0500 Body weight 146.[address] Work Phone: [facility] 02-22-2024 10:27-0400 Body height 162.6 cm Raygan Ciballi PA-C Work Phone: [facility] 02-22-2024 10:27-0400 Body mass index (BMI) [Ratio] 54.72 kg/m2 Janell Ciballi PA-C Work Phone: [facility] 02-22-2024 10:27-0400 Body weight 144.61 kg Paulinogan Ciballi PA-C Work Phone: [employer] [facility] 02-22-2024 10:27-0400 Diastolic blood pressure 74 mm[Hg] Janell Ciballi PA-C Work Phone: [employer] [facility] 02-22-2024 10:27-0400 Heart rate 73 /min Janell Ciballi PA-C Work Phone: [facility] [employer] [facility] 02-22-2024 10:27-0400 SaO2% (BldA) [Mass fraction] 96 % Janell Ciballi PA-C Work Phone: [facility] 02-22-2024 10:27-0400 Systolic blood pressure 133 mm[Hg] Paulinogan Ciballi PA-C Work Phone: [employer] [facility] 02-01-2024 01:04-0400 Heart rate 75 /min Brianna Might ETHNOGRAPHER - [employer] SUPERINTEND[employer] Work Phone: [facility] 02-01-2024 01:04-0400 Respiratory rate 20 /min Brianna Might ETHNOGRAPHER - [employer] SUPERINTENDENT Work Phone: [facility] 02-01-2024 00:34-0400 SaO2% (BldA) [Mass fraction] 97 % Brianna Might ETHNOGRAPHER - [employer]OTSH[employer] SUPERINTENDENT Work Phone: [employer] 01-31-2024 22:59-0400 Diastolic blood pressure 102 mm[Hg] Brianna Might ETHNOGRAPHER - [employer] SUPERINTENDENT Work Phone: [facility] 01-31-2024 22:59-0400 Systolic blood pressure 137 mm[Hg] Brianna Might ETHNOGRAPHER - [employer] SUPERINTENDENT Work Phone: [facility] 01-31-2024 20:00-0400 Body height 162.6 cm Brianna Might ETHNOGRAPHER - [employer]SH[employer] SUPERINTENDENT Work Phone: [employer] 01-31-2024 20:00-0400 Body mass index (BMI) [Ratio] 53.21 kg/m2 Brianna Might ETHNOGRAPHER - [employer]SH[employer] SUPERINTENDENT Work Phone: [employer] 01-31-2024 20:00-0400 Body temperature 98.2 [degF] Brianna Might ETHNOGRAPHER - [employer]SH[employer] SUPERINTENDENT Work Phone: [employer] 01-31-2024 20:00-0400 Body weight 140.62 kg Brianna Might ETHNOGRAPHER - [employer]SH[employer] SUPERINTENDENT Work Phone: [facility] 01-23-2024 10:47-0400 Body height 162.6 cm Wayne Joseph DO Work Phone: [employer] 01-23-2024 10:47-0400 Body mass index (BMI) [Ratio] 55.85 kg/m2 Wayne Joseph DO Work Phone: [employer] 01-23-2024 10:47-0400 Body weight 147.6 kg Wayne Joseph DO Work Phone: [employer] 01-23-2024 10:47-0400 Diastolic blood pressure 61 mm[Hg] Wayne Joseph DO Work Phone: [employer] 01-23-2024 10:47-0400 Heart rate 69 /min Wayne Joseph DO Work Phone: [employer] 01-23-2024 10:47-0400 SaO2% (BldA) [Mass fraction] 98 % Wayne Joseph DO Work Phone: [employer] 01-23-2024 10:47-0400 Systolic blood pressure 115 mm[Hg] Wayne Joseph DO Work Phone: [employer] 06-27-2022 12:54-0500 Heart rate 76 /min Surinder Mireles MD Work Phone: [employer] 06-27-2022 12:45-0500 Diastolic blood pressure 86 mm[Hg] Surinder Mireles MD Work Phone: [facility] 06-27-2022 12:45-0500 Systolic blood pressure 139 mm[Hg] Surinder Mireles MD Work Phone: [facility] 06-27-2022 12:33-0500 Body mass index (BMI) [Ratio] 56.3 kg/m2 Surinder Mireles MD Work Phone: [facility] 06-27-2022 12:33-0500 Body temperature 97.59 [degF] Surinder [facility]ireles MD Work Phone: [facility] 06-27-2022 12:33-0500 Body weight 148.78 kg Surinder Mireles MD Work Phone: [facility] 06-27-2022 12:33-0500 Respiratory rate 16 /min Surinder Mireles MD Work Phone: [facility] 06-27-2022 12:33-0500 SaO2% (BldA) [Mass fraction] 98 % Surinder Mireles MD Work Phone: [facility] 02-12-2021 16:49-0400 Body mass index (BMI) [Ratio] 52.35 kg/m2 Ebony Bonds DO Work Phone: [employer] Work Phone: 02-12-2021 16:49-0400 Body temperature 98.01 [degF] Ebony Bonds DO Work Phone: [employer] Work Phone: 02-12-2021 16:49-0400 Body weight 138.35 kg Ebony Bonds DO Work Phone: [employer] Work Phone: 02-12-2021 16:49-0400 Diastolic blood pressure 75 mm[Hg] Ebony Bonds DO Work Phone: [employer] Work Phone: 02-12-2021 16:49-0400 Heart rate 95 /min Ebony Bonds DO Work Phone: [employer] Work Phone: 02-12-2021 16:49-0400 Respiratory rate 18 /min Ebony Bonds DO Work Phone: [employer] Work Phone: 02-12-2021 16:49-0400 SaO2% (BldA) [Mass fraction] 95 % Ebony Bonds [employer] Work Phone: [employer] Work Phone: 02-12-2021 16:49-0400 Systolic blood pressure 108 mm[Hg] Ebony Bonds DO Work Phone: [employer] Work Phone: 12-14-2020 16:01-0400 Body height 163.83 cm [employer] 12-14-2020 16:01-0400 Body mass index (BMI) [Ratio] 53.74 kg/m2 [employer] 12-14-2020 16:01-0400 Body surface area Derived from formula 2.56 m2 [employer] 12-14-2020 16:01-0400 Body weight 144.24 kg [employer] 12-14-2020 16:01-0400 Diastolic blood pressure 90 mm[Hg] [employer] 12-14-2020 16:01-0400 Heart rate 72 /min [employer] 12-14-2020 16:01-0400 Systolic blood pressure 128 mm[Hg] [employer] 12-07-2020 11:36-0400 Body height 163.83 cm [employer] 12-07-2020 11:36-0400 Body mass index (BMI) [Ratio] 54.16 kg/m2 [employer] 12-07-2020 11:36-0400 Body surface area Derived from formula 2.57 m2 [employer] 12-07-2020 11:36-0400 Body weight 145.38 kg [employer] 12-07-2020 11:36-0400 Diastolic blood pressure 90 mm[Hg] [employer] 12-07-2020 11:36-0400 Heart rate 80 /min [employer] 12-07-2020 11:36-0400 Systolic blood pressure 130 mm[Hg] [employer] 10-23-2020 18:51-0400 Body temperature 97.7 [degF] Pily Mariscal MD Work Phone: [employer] Work Phone: 10-23-2020 18:51-0400 Diastolic blood pressure 92 mm[Hg] Pily Mariscal MD Work Phone: [employer] Work Phone: 10-23-2020 18:51-0400 Heart rate 89 /min Pily Mariscal MD Work Phone: [employer] Work Phone: 10-23-2020 18:51-0400 Respiratory rate 16 /min Pily Mariscal MD Work Phone: [employer] Work Phone: 10-23-2020 18:51-0400 SaO2% (BldA) [Mass fraction] 100 % Pily Mariscal MD Work Phone: [employer] Phone: 10-23-2020 18:51-0400 Systolic blood pressure 136 mm[Hg] Pily Mariscal MD Work Phone: [employer] Phone: 06-28-2020 14:00-0500 BP Diastolic 48 mm[Hg] Pily Mariscal [employer] Work Phone: 06-28-2020 14:00-0500 BP Systolic 117 mm[Hg] Pily Mariscal [employer] Phone: 06-28-2020 14:00-0500 Pulse Oximetry 97 % Pily Mariscal [employer] Phone: 06-28-2020 13:43-0500 Body Temperature 97.11 [degF] Pily Mariscal [employer] Work Phone: 06-28-2020 13:43-0500 Pulse (Heart Rate) 66 /min Pily Mariscal [employer] Work Phone: 06-28-2020 13:43-0500 Respiratory Rate 16 /min Pily Mariscal [employer] Phone: 04-04-2020 22:30-0500 Body Temperature 97.2 [degF] [place] 04-04-2020 22:30-0500 BP Diastolic 105 mm[Hg] Suraj [employer]- [place] , [place] 04-04-2020 22:30-0500 BP Systolic 146 mm[Hg] [facility] [place] 04-04-2020 22:30-0500 Pulse (Heart Rate) 74 /min [facility] [place] 04-04-2020 22:05-0500 Pulse Oximetry 97 % Suraj [employer] [place] , [place] 04-04-2020 21:31-0500 Respiratory Rate 18 /min Suraj Barajas [facility] [place] 11-13-2019 10:16-0400 BP Diastolic 74 mm[Hg] Louis Doyle [facility], [place] 11-13-2019 10:16-0400 BP Systolic 135 mm[Hg] Louis Doyle [facility], [place] 11-13-2019 10:16-0400 Pulse Oximetry 97 % [facility] [place] 11-13-2019 07:15-0400 BMI (Body Mass Index) 53.04 kg/m2 Louis Doyle [facility], [place] 11-13-2019 07:15-0400 Body Temperature 98.4 [degF] Louis Rodgers [facility] [place], [place] 11-13-2019 07:15-0400 Body weight 140.16 kg Louis Doyle [facility], [place] 11-13-2019 07:15-0400 Height 162.6 cm Louis Doyle [facility], [place] 11-13-2019 07:15-0400 Pulse (Heart Rate) 96 /min Louis Rodgers [facility] [place], [place] 11-13-2019 07:15-0400 Respiratory Rate 22 /min Louis Rodgers [facility] [place], [place] 11-03-2019 00:24-0400 Body Temperature 97.9 [degF] Emil Mays [facility] [place] 11-03-2019 00:24-0400 BP Diastolic 98 mm[Hg] [facility] [place] [facility] [place] 11-03-2019 00:24-0400 BP Systolic 130 mm[Hg] [facility] [place] [facility] [place] 11-03-2019 00:24-0400 Pulse (Heart Rate) 74 /min [facility] [place] 11-03-2019 00:24-0400 Pulse Oximetry 97 % Emil Davon [facility] , [place] 11-03-2019 00:24-0400 Respiratory Rate 18 /min Emil Davon [facility] [place] 08-09-2019 10:30-0400 BP Diastolic 72 mm[Hg] [facility] [employer] [employer] , [place] 08-09-2019 10:30-0400 BP Systolic 123 mm[Hg] [facility] [employer] , [place] 08-09-2019 10:30-0400 Pulse (Heart Rate) 72 /min [facility] [employer] [place], [place] 08-09-2019 09:38-0400 Body Temperature 97 [degF] Mth Schedule [employer] [employer], [place] 08-09-2019 09:38-0400 Respiratory Rate 18 /min [facility] [employer] 08-01-2019 11:00-0400 BP Diastolic 77 mm[Hg] [facility] Schedule [employer] , [place] 08-01-2019 11:00-0400 BP Systolic 136 mm[Hg] [facility] Schedule [employer] , [place] 08-01-2019 11:00-0400 Pulse (Heart Rate) 73 /min [facility] Schedule [employer], [place] 08-01-2019 09:48-0400 Body Temperature 97.9 [degF] [facility] Schedule [employer], [place] 08-01-2019 09:48-0400 Respiratory Rate 18 /min [facility] Schedule [employer], [place] 06-23-2019 23:17-0500 BP Diastolic 60 mm[Hg] [employer] Work Phone: 06-23-2019 23:17-0500 BP Systolic 111 mm[Hg] [employer] Work Phone: 06-23-2019 23:17-0500 Pulse (Heart Rate) 75 /min [employer] Work Phone: 06-23-2019 23:17-0500 Respiratory Rate 17 /min [employer] Work Phone: 06-23-2019 22:47-0500 Pulse Oximetry 98 % [employer] Phone: 06-23-2019 20:34-0500 Body Temperature 97.7 [degF] [employer] Work Phone: 04-07-2019 14:14-0500 BP Diastolic 90 mm[Hg] Wayne Ozuna [facility] , [place] 04-07-2019 14:14-0500 BP Systolic 110 mm[Hg] Wayne Ozuna [facility] , [place] 04-07-2019 14:14-0500 Pulse (Heart Rate) 75 /min [facility] [place] 04-07-2019 14:14-0500 Pulse Oximetry 99 % Wayne Ozuna [facility] , [place] 04-07-2019 14:14-0500 Respiratory Rate 16 /min [facility] [place] 04-07-2019 14:11-0500 Body Temperature 97 [degF] Wayne Ozuna [facility], [place] 02-02-2019 06:05-0400 BMI (Body Mass Index) 50.46 kg/m2 [facility] [place] 02-02-2019 06:05-0400 Body Temperature 98.01 [degF] [facility] [place] 02-02-2019 06:05-0400 Body weight 133.36 [facility] [place] 02-02-2019 06:05-0400 BP Diastolic 84 mm[Hg] [facility] [place] 02-02-2019 06:05-0400 BP Systolic 118 mm[Hg] [facility] [place] 02-02-2019 06:05-0400 Pulse (Heart Rate) 91 /min [facility] [place] 02-02-2019 06:05-0400 Pulse Oximetry 99 % [facility] [place] 02-02-2019 06:05-0400 Respiratory Rate 18 /min [facility] [place] 12-24-2018 20:23-0400 Body Temperature 97 [degF] Brianna Verde [facility], [place] 12-24-2018 20:23-0400 BP Diastolic 94 mm[Hg] [facility] , [place] 12-24-2018 20:23-0400 BP Systolic 133 mm[Hg] Brianna Verde [facility] , [place] 12-24-2018 20:23-0400 Pulse (Heart Rate) 94 /min Brianna Verde [facility] [place], [place] 12-24-2018 20:23-0400 Pulse Oximetry 96 % Brianna Verde [facility] , [place] 12-24-2018 20:23-0400 Respiratory Rate 14 /min Brianna Verde [facility] [place] Encounters Encounter Date Encounter Type Care Provider Facility Start: 10-18-2024 ambulatory SURAJ OLSON [facility] Start: 06-22-2024 End: 06-22-2024 ambulatory BRIANNA Ch[facility] Start: 03-21-2024 End: 03-21-2024 Office outpatient visit 25 minutes Janell Baldwin PA-C Work Phone: [facility] Comment on above: Morbid obesity with body mass index of 50 or higher (Primary Dx); Type 2 diabetes mellitus without complication, unspecified whether long chain quiller tender insulin use Start: 03-21-2024 End: 03-21-2024 Patient encounter procedure Jean Paul Almanzar RD Work Phone: [facility] Comment on above: Nutritional counseli ng (Primary Dx); Morbid obesity with BMI of 50.0-59.9, adult Start: 03-21-2024 ambulatory [facility] Start: 03-21-2024 [facility] Start: 02-22-2024 End: 02-22-2024 Office outpatient new 30 minutes Janell Baldwin PA-C Work Phone: [facility] Comment on above: Morbid obesity with body mass index of 50 or higher (Primary Dx); WALTER (obstructive sleep apnea); Type 2 diabetes mellitus without complication, unspecified whether long chain quiller tender insulin use Start: 02-22-2024 ambulatory WAYNE JOSEPH [facility] Start: 01-31-2024 End: 02-01-2024 Emergency department patient visit BRIANNA Chavez [facility] ED Comment on above: Abdominal pain, unsp ecified abdominal location (Primary Dx); Urinary tract infection without hematuria, site unspecified Start: 01-23-2024 End: 01-23-2024 Office outpatient new 30 minutes Wayne Joseph DO Work Phone: [facility] Comment on above: Morbid obesity with BMI of 50.0-59.9, adult (Primary Dx); Type 2 diabetes mellitus without complication, unspecified whether assisted insulin use; Essential hypertension Start: 01-23-2024 ambulatory WAYNE JOSEPH [facility] Start: 11-21-2023 End: 11-23-2023 ambulatory JEN SCOOTER [facility] Start: 09-28-2023 End: 09-28-2023 [facility] Start: 09-07-2023 End: 09-07-2023 ambulatory [facility] Start: 08-22-2023 End: 08-22-2023 ambulatory [facility] Start: 07-28-2023 End: 07-28-2023 ambulatory [facility] Start: 07-24-2023 End: 07-24-2023 ambulatory [facility] Start: 07-24-2023 End: 07-24-2023 Subsequent hospital visit by physician Brianna Restrepo CNP Work Phone: [facility] Laboratory Comment on above: Acute UTI Start: 06-15-2023 ambulatory Nithin Simpson acility:[place] Start: 04-23-2023 End: 04-23-2023 Emergency department patient visit JOVAN ALBARRAN [facility] Start: 04-14-2023 End: 04-14-2023 Emergency department patient visit KALE CARTER [facility] Start: 03-10-2023 End: 03-10-2023 Emergency department patient visit JESSICA CHAVES [facility] Start: 02-19-2023 End: 02-19-2023 Emergency department patient visit BRIANNA W [facility] Start: 06-27-2022 End: 06-27-2022 Emergency department patient visit Surinder Mireles MD Work Phone: [facility] ED Comment on above: Acute nonintractable headache, unspecified headache type (Primary Dx) Start: 12-29-2021 End: 12-29-2021 Subsequent hospital visit by physician Brianna Verde APRN Naow Work Phone: [facility] Laboratory Comment on above: B12 deficiency Start: 11-08-2021 End: 11-08-2021 Subsequent hospital visit by physician Sujit Aguirre PT [facility] Physical Therapy Comment on above: Arrived Start: 09-20-2021 End: 09-20-2021 Subsequent hospital visit by physician Anusha Torres PTA [facility] Physical Therapy Start: 09-03-2021 End: 09-03-2021 Subsequent hospital visit by physician Anusha Torres PTA [facility] Physical Therapy Comment on above: Arrived Start: 08-06-2021 End: 08-06-2021 Subsequent hospital visit by physician Anusha Torres PTA [facility] Physical Therapy Comment on above: Canceled (Case cansammy lled) Start: 07-16-2021 End: 07-16-2021 Subsequent hospital visit by physician Donna Damon PT [facility] Physical Therapy Comment on above: Arrived Start: 06-11-2021 End: 06-13-2021 Subsequent hospital visit by physician Brianna Verde APRN - [facility] Work Phone: [facility] Start: 02-12-2021 End: 02-12-2021 Emergency department patient visit Ebony Bonds DO Work Phone: [facility] ED Comment on above: Diarrhea, unspecifie d type (Primary Dx); Nonintractable headache, unspecified chronicity pattern, unspecified headache type; Syncope and collapse Start: 01-14-2021 End: 01-14-[address] CRAIG BUSTILLO Facility:[facility] Start: 12-14-2020 Split Srvc Kaye Landeros rne Other [facility] Start: 12-07-2020 Split Srvc Kaye Landeros rne Other [facility] Office Start: 11-25-2020 End: 11-25-2020 Subsequent hospital visit by physician Brianna Verde ETHNOGRAPHER - [facility] Work Phone: [facility] Laboratory Comment on above: Polyneuropathy; Hypocalcemia Start: 11-06-2020 End: 11-06-2020 Subsequent hospital visit by physician Pj Siddiqui PT [facility] Physical Therapy Start: 10-30-2020 End: 10-30-2020 Subsequent hospital visit by [facility] Start: 10-23-2020 End: 10-23-2020 Emergency department patient visit Pily Mariscal MD Work Phone: [facility] ED Comment on above: Pain, dental (Primar y Dx); Insect bite of right upper arm, initial encounter Start: 09-22-2020 End: 09-22-2020 Subsequent hospital visit by physician Ansuha Torres PTA [facility] Physical Therapy Comment on above: Arrived Start: 09-18-2020 End: 09-18-2020 Subsequent hospital visit by physician Anusha Torres PTA [facility] Physical Therapy Comment on above: Arrived Start: 09-14-2020 End: 09-14-2020 Subsequent hospital visit by physician Pj Siddiqui PT [facility] Physical Therapy Comment on above: Arrived Start: 09-04-2020 End: 09-04-2020 Subsequent hospital visit by physician Pj Siddiqui PT [facility] Physical Therapy Comment on above: Arrived Start: 06-28-2020 End: 06-28-2020 Emergency department patient visit Pily Mariscal Work Phone: [facility] ED Comment on above: Multiple contusions (Primary Dx); Fall, initial encounter Start: 05-22-2020 End: 05-22-2020 Subsequent hospital visit by physician Brianna SLOAN Laboratory Comment on above: Iron deficiency anem ia, unspecified iron deficiency anemia type; Intestinal malabsorption, unspecified type; H/O gastric bypass; B12 deficiency Start: 04-04-2020 End: 04-04-2020 Emergency department patient visit Suraj Barajas Work Phone: [facility] ED Comment on above: Viral illness (Prima ry Dx) Start: 11-13-2019 End: 11-13-2019 Emergency department patient visit Louis Doyle [facility] ED Comment on above: Non-surgical abdomin al pain (Primary Dx) Start: 11-03-2019 End: 11-03-2019 Emergency department patient visit Emil Mays Work Phone: [facility] ED Comment on above: Back strain, initial encounter (Primary Dx); Skin yeast infection; Concern about STD in female without diagnosis Start: 08-09-2019 End: 08-09-2019 Subsequent hospital visit by physician Nathalia Med Onc Room 8 Schedule [facility] MED ONC Comment on above: Intestinal malabsorp tion, unspecified type (Primary Dx); Iron deficiency anemia, unspecified iron deficiency anemia type Start: 08-01-2019 End: 08-01-2019 Subsequent hospital visit by physician Nathalia Med Onc Room 1 Schedule [facility] MED ONC Comment on above: Intestinal malabsorp tion, unspecified type (Primary Dx); Iron deficiency anemia, unspecified iron deficiency anemia type Start: 07-18-2019 End: 07-19-2019 Patient encounter procedure BRENDA RHODESNORMAN [facility] Start: 07-18-2019 End: 07-18-2019 Subsequent hospital visit by physician Brianna JONES [place] [facility] DO[facility] Start: 06-23-2019 End: 06-23-2019 Emergency department patient visit Nickolas Domingo Work Phone: [facility] ED Comment on above: Nonspecific chest pa in (Primary Dx) Start: 04-07-2019 End: 04-07-2019 Emergency department patient visit Wayne Ozuna Work Phone: [facility] ED Comment on above: Acute parotitis (Amparo erlin Dx); Acute upper respiratory infection Start: 02-20-2019 End: 02-20-2019 Subsequent hospital visit by physician Brianna [facility] Comment on above: Iron deficiency anem ia, unspecified iron deficiency anemia type; Intestinal malabsorption, unspecified type; H/O gastric bypass; B12 deficiency Start: 02-19-2019 End: 02-19-2019 Subsequent hospital visit by physician Nathalia Sleep Rm 1 [facility] Sleep Center Comment on above: WALTER (obstructive sle ep apnea) Start: 02-02-2019 End: 02-02-2019 Emergency department patient visit Chepe Stafford Work Phone: [facility] ED Comment on above: Acute pharyngitis, u nspecified etiology (Primary Dx); Acute tonsillitis, unspecified etiology Start: 12-24-2018 End: 12-24-2018 Emergency department patient visit Brianna Verde [facility] ED Comment on above: Acute pharyngitis, u nspecified etiology (Primary Dx) Procedures Date Procedure Procedure Detail Performing Clinician Start: 03-21-2024 Lipid 1996 panel - S carla or Plasma Jean Paul Almanzar RD Work Phone: Start: 01-31-2024 Ct abdomen & pelvis w/contrast material Stacey KLEIN-Eddie Work Phone: Start: 01-31-2024 Urinalysis microscopic only Stacey Kruse PA-C Work Phone: Start: 01-31-2024 Urnls dip stick/tabl et rgnt auto w/o microscopy Stacey Kruse PA-C Work Phone: Start: 01-31-2024 Comprehensive metabo lic panel Stacey Melissa Aixa PA-C Work Phone: Start: 01-31-2024 Ecg routine ecg w/le ast 12 lds w/i&r Stacey KLEIN-C Work Phone: Start: 06-27-2022 Radiologic exam ches [...] Bonds DO Work Phone: Start: 02-12-2021 Radex jason minimu m 2 views Ebony Bonds DO Work Phone: Start: 02-12-2021 Ecg routine ecg w/le ast 12 lds w/i&r Ebonypriscilla Bonds DO Work Phone: Start: 12-14-2020 Nerve conduction shabnam dies 9-10 studies Kaye Kruse Start: 12-07-2020 Nerve conduction shabnam dies 7-8 studies Kaye Kruse Start: 11-25-2020 End: 11-25-2020 Basic metabolic panel calcium total Maynor M Deats ETHNOGRAPHER - [facility] Work Phone: Start: 11-25-2020 VITAMIN B12 & FOLATE Sh awn M Deats ETHNOGRAPHER - [employer]SHOT SUPERINTENDENT Work Phone: Start: 06-28-2020 Radiologic examinati on pelvis 1/2 views Pily Mariscal Work Phone: Start: 06-28-2020 End: 06-28-2020 Radiologic examination knee 1/2 views Pily Mariscal Work Phone: Start: 06-28-2020 Radex hand minimum 3 views Pily Mariscal Work Phone: Start: 06-28-2020 Radex ribs uni w/pos teroant ch minimum 3 views Pily Mariscal Work Phone: Start: 05-22-2020 Assay of ferritin Julieta Rios Work Phone: Start: 05-22-2020 Blood count [...] 11-03-2019 Urine test visual color cmprsn meths Emil A Davon Work Phone: Start: 11-03-2019 Urnls dip stick/tabl et reagent auto microscopy Emil Galeana [facility] Work Phone: Start: 07-18-2019 25 hydroxy includes fractions if performed MIRIAMD AL-NSWILFREDO Start: 07-18-2019 Assay of ferritin SHAANAM [facility]J [employer] Start: 07-18-2019 Cyanocobalamin vitamin b-12 [facility] Start: 07-18-2019 25 hydroxy includes fractions if performed Brenda Galeana Carnad-Nswilfredo Work Phone: Start: 07-18-2019 Assay of ferritin Julieta Galeana [employer] Work Phone: Start: 07-18-2019 VITAMIN B12 & FOLATE Mo john paul A [employer] Work Phone: Start: 06-23-2019 Assay of lipase Nickolas cedillo Work Phone: Start: 06-23-2019 End: 06-23-2019 Assay of troponin quantitative Nickolas Domingo Work Phone: Start: 06-23-2019 Blood count complete auto&auto difrntl wbc Nickolas Domingo Work Phone: Start: 06-23-2019 Fibrin dgradj produc ts d-dimer quantitative Nickolas Domingo Work Phone: Start: 06-23-2019 Natriuretic peptide Tyl er Chayo Work Phone: Start: 06-23-2019 Ecg routine ecg w/le ast 12 lds w/i&r Nickolas Domingo Work Phone: Start: 06-23-2019 Radiologic exam ches t single view Nickolas Domingo Work Phone: Start: 02-20-2019 25 hydroxy includes fractions if performed Carmela Loida Work Phone: Start: 02-20-2019 Assay of ferritin Carmela Loida Work Phone: Start: 02-20-2019 Blood count complete auto&auto difrntl wbc Carmela Mariscal Work Phone: Start: 02-20-2019 Comprehensive metabo lic panel Carmela Mariscal Work Phone: Start: 02-20-2019 Iron binding capacity R enjose guadalupe Mariscal Work Phone: Start: 02-20-2019 VITAMIN B12 & FOLATE Re nu Loida Work Phone: Start: 12-24-2018 [employer] streptococ cus group a Chandana Cordova Work Phone: Plan of Treatment Date Care Activity Detail Author Start: 03-21-2029 Lipid panel LIPID SCREENING [employer] [facility] [employer] Start: 07-27-2028 Lipid panel Lipids [employer] Start: 08-15-2027 Shingles Vaccine (1 of 2) Shingles Vaccine (1 of 2) [employer] Work Phone: Start: 11-20-2025 Screening for malign ant neoplasm of breast Breast cancer screen [employer] Start: 01-30-2025 GFR test (Diabetes, CKD 3-4, OR last GFR 15-59) GFR test (Diabetes, CKD 3-4, OR last GFR 15-59) [employer] Start: 11-20-2024 Screening for malign ant neoplasm of breast MAMMOGRAM SCREENING DISCUSSION [employer] Start: 08-07-2024 Depression Monitoring Depression Mon itoring [employer] Start: 07-23-2024 COVID-19 Vaccine (#1) COVID-19 Vacci ne (#1) [employer] Comment on above: Postponed from 02/13 (Patient Refused) Start: 07-23-2024 DTaP/Tdap/Td vaccine (2 - Td or Tdap) DTaP/Tdap/Td vaccine (2 - Td or Tdap) [employer] Comment on above: Postponed from 11/17 (Patient Refused) Start: 07-23-2024 Hepatitis B vaccine (1 of 3 - 19+ 3-dose series) Hepatitis B vaccine (1 of 3 - 19+ 3-dose series) [facility] Comment on above: Postponed from 08/14 (Patient Refused) Start: 07-23-2024 Hepatitis B vaccine (1 of 3 - 3-dose series) Hepatitis B vaccine (1 of 3 - 3-dose series) [facility] Comment on above: Postponed from 08/14 (Patient Refused) Start: 07-23-2024 Influenza vaccination Flu vaccine (# 1) [facility] Comment on above: Postponed from 12/13 (Patient Refused) Start: 04-18-2024 End: 04-18-2024 Patient encounter procedure 04/18/2024 10:00 AM EST Office Visit [facility] [address] [id number] Janell Baldwin PA-C [address] [place] [address] [facility] Start: 04-12-2024 End: 04-12-2024 Telemedicine consultation with patient 04/12/2024 11:00 AM EST Telemedicine [facility] [address] [place] [address] Jean Paul Almanzar, RD [address] [place] [address] [facility] Start: 03-21-2024 End: 03-21-2024 Patient encounter procedure [facility] Start: 02-22-2024 End: 02-21-2025 Comprehensive metabolic 2000 panel - Serum or Plasma COMPREHENSIVE METABOLIC PANEL Lab Routine Morbid obesity with body mass index of 50 or higher WALTER (obstructive sleep apnea) Type 2 diabetes mellitus without complication, unspecified whether long chain quiller tender insulin use Expected: 02/22/2024, Expires: 02/21/2025 [facility] Comment on above: Expected: 02/22/2024 , Expires: 02/21/2025 Start: 02-22-2024 End: 02-21-2025 Hemoglobin A1c/Hemoglobin.total in Blood HEMOGLOBIN A1C Lab Routine Morbid obesity with body mass index of 50 or higher WALTER (obstructive sleep apnea) Type 2 diabetes mellitus without complication, unspecified whether assisted insulin use Expected: 02/22/2024, Expires: 02/21/2025 [facility] Comment on above: Expected: 02/22/2024 , Expires: 02/21/2025 Start: 02-22-2024 End: 02-22-2024 Patient encounter procedure 02/22/2024 10:30 AM EDT Office Visit [facility] [address] [place] [address] Janell Baldwin, PALauroC [address] [place] [address] [facility] Start: 01-25-2024 End: 01-25-2024 Patient encounter procedure 01/25/2024 2:20 PM EDT Office Visit [facility] [address] [place] [id number] Brianna Verde, ETHNOGRAPHER - HOTSH[employer] SUPERINTENDENT [address] [place] [address] 6 month f/u [facility] Comment on above: 6 month f/u Start: 01-14-2024 COVID-19 VACCINE ( season) COVID-19 VACCINE ( season) [facility] Start: 01-14-2024 COVID-19 VACCINE ( season) COVID-19 VACCINE ( season) [facility] Start: 01-14-2024 Influenza vaccination INFLUENZA VACC INE (#1) [facility] Start: 12-14-2023 Influenza vaccination Flu vaccine (# 1) JEANA [facility] Start: 10-30-2023 Lipid panel [facility] Start: 10-30-2023 Lipid screen Lipid screen [facility]- [place], [place] Start: 09-11-2023 End: 09-11-2023 Patient encounter procedure 09/11/2023 11:40 AM EDT Office Visit [facility] NE[facility] Part of [address] [place] [id number] Stephanie Arredondo MD [address] [place] [address] [place] [address] Just want to check in and get my meds [facility] Part of [facility] Comment on above: Just want to check i n and get my meds Start: 08-16-2023 End: 08-16-2023 Patient encounter procedure 08/16/2023 1:15 PM EDT Office Visit [facility] Part of [address] [address] Brenda Rios MD [address] [place], [place] [id number] b12 deficiency [facility] Part [facility] Comment on above: b12 deficiency Start: 08-08-2023 End: 08-08-2023 Nursing evaluation of patient and report 08/08/2023 2:30 PM EDT Nurse Only [facility] [address] [place] [address] 2 week bp check [facility] Comment on above: 2 week bp check Start: 07-22-2023 Depression Monitoring Depression Mon [facility] Start: 01-03-2023 COVID-19 Vaccine (#1) COVID-19 Vacci ne (#1) [facility] Comment on above: Postponed from 02/13 (Not Indicated) Start: 01-03-2023 Depression Monitoring Depression Mon [facility] Start: 01-03-2023 Screening for malign ant neoplasm of cervix Cervical cancer screen [facility] Comment on above: Postponed from 08/14 (Not Indicated) Start: 11-17-2022 DTaP/Tdap/Td vaccine (2 - Td or Tdap) DTaP/Tdap/Td vaccine (2 - Td or Tdap) [facility] Start: 11-17-2022 DTaP/Tdap/Td vaccine (2 - Td) DTaP/Tdap/Td vaccine (2 - Td) [facility] [place] Start: 11-17-2022 Tetanus vaccination TETANUS [facility] Start: 2022 Screening for malign ant neoplasm of colon [facility] Start: 07-13-2022 End: 07-13-2022 Patient encounter procedure 07/13/2022 Office Visit Oncology Flora Moore MD [address] [place] [address] [facility] Part [facility] Start: 07-06-2022 End: 07-06-2022 Patient encounter procedure 07/06/2022 Office Visit Primary Care Brianna Verde, ETHNOGRAPHER - HOTSHOT SUPERINTENDENT [address] [place] [facility] [place] [address] [facility] Start: 05-21-2022 Depression Monitoring Depression [facility] Start: 04-28-2022 End: 04-28-2022 Patient encounter procedure 04/28/2022 Office Visit Neurology Stephanie Arredondo MD [address] [place] [address] [place] [address] [facility] Part [facility] Start: 01-13-2022 Influenza vaccination [facility] Start: 01-07-2022 End: 01-07-2022 Patient encounter procedure 01/07/2022 Appointment Physical Therapy Anusha Torres, LAURA [facility] Start: 01-05-2022 End: 01-05-2022 Patient encounter procedure [facility] Start: 01-03-2022 End: 01-03-2022 Patient encounter procedure 01/03/2022 Office Visit Primary Care Brianna Verde, ETHNOGRAPHER - H[employer] SUPERINTENDENT [address] [place] [facility] [place] [address] [facility] Start: 12-13-2021 Influenza vaccination Flu vaccine (# 1) [facility] Start: 11-25-2021 COVID-19 Vaccine (1) COVID-19 Vaccin e (1) [facility] Comment on above: Postponed from 08/14 (Patient Refused) Postponed from 08/14 (Patient Refused) Start: 11-25-2021 Screening for malign ant neoplasm of cervix Cervical cancer screen [facility] Work Phone: Comment on above: Postponed from 08/14 (Not Indicated) Start: 11-19-2021 End: 11-19-2021 Patient encounter procedure 11/19/2021 Office Visit Primary Care Brianna Verde, ETHNOGRAPHER - H[employer] SUPERINTENDENT [address] [place], [place] [id number] [facility] Start: 10-28-2021 End: 10-28-2021 Patient encounter procedure 10/28/2021 [place] [address] [place] [address] [facility] Start: 10-21-2021 End: 10-21-2021 Patient encounter procedure 10/21/2021 Office Visit Neurology Stephanie Arredondo MD [address] [place] [address] [facility] Start: 09-22-2021 End: 09-22-2021 Patient encounter procedure 09/22/2021 Office Visit Oncology Flora Moore MD [address] [place] [address] [facility] Start: 09-17-2021 End: 09-17-2021 Patient encounter procedure 09/17/2021 Appointment Physical Therapy Prabhu Leiva PTA [facility] Start: 09-09-2021 End: 09-09-2021 Patient encounter procedure 09/09/2021 Office Visit Neurology Stephanie Arredondo MD [address] [place] [address] [facility] Start: 09-03-2021 End: 09-03-2021 Patient encounter procedure 09/03/2021 Appointment Physical Therapy [facility] Start: 08-20-2021 End: 08-20-2021 Patient encounter procedure 08/20/2021 Appointment Physical Therapy [facility]abhu [facility]iva [facility] Start: 08-11-2021 End: 08-11-2021 Patient encounter procedure [facility] Start: 07-12-2021 End: 07-12-2021 Patient encounter procedure [facility] Start: 02-24-2021 End: 02-24-2021 Patient encounter procedure 02/24/2021 Office Visit Primary Care Brianna Verde, ETHNOGRAPHER - H[employer] SUPERINTENDENT [address] [place] [address] [phone] [facility] Start: 01-27-2021 End: 01-27-2021 Patient encounter procedure 01/27/2021 Office Visit Oncology Flora Moore MD [address] [place] [address] [facility] Start: 01-13-2021 Influenza vaccination [facility] Start: 12-09-2020 End: 12-09-2020 Office Visit 12/09/2020 Office Visit Primary Care Brianna Verde ETHNOGRAPHER - [employer] SUPERINTENDENT [address] [place] [facility] [place] [address] [phone] [facility] Start: 11-06-2020 End: 11-06-2020 Patient encounter procedure [facility] Physical Therapy Start: 10-30-2020 End: 10-30-2020 Patient encounter procedure 10/30/2020 Appointment Physical Therapy Pj Siddiqui PT [facility] Physical Therapy Start: 10-29-2020 End: 10-29-2020 Patient encounter procedure 10/29/2020 Office Visit Neurology Stephanie Arredondo MD [address] [facility] [place] [address] [phone] [facility] Part of [facility] Start: 10-07-2020 End: 10-07-2020 Patient encounter procedure 10/07/2020 Appointment Physical Therapy Shailesh [facility]ung [facility] Start: 10-05-2020 End: 10-05-2020 Patient encounter procedure 10/05/2020 Appointment Physical Therapy Pj Siddiqui PT [facility] Start: 10-03-2020 Diabetes screen Diabetes screen [facility] Start: 09-30-2020 End: 09-30-2020 Patient encounter procedure [facility] Physical Therapy Start: 09-28-2020 End: [...] Visit Oncology Brenda Rios MD [address] [place] [address] [facility] Part of [facility] Start: 02-04-2021 Cervical cancer screen Cervical canc er screen [facility] [employer] Phone: Comment on above: Postponed from 08/14 (Patient Refused) Start: 06-18-2020 Influenza vaccination [facility] [employer] Phone: Comment on above: Postponed from 01/13 (Patient Refused) Postponed from 01/13 (Patient Refused) Start: 06-18-2020 Screening for malign ant neoplasm of cervix Cervical cancer screen [place], [place] Comment on above: Postponed from 08/14 (Patient Refused) Start: 04-06-2020 End: 04-06-2020 Office Visit 04/06/2020 Office Visit Primary Care Brianna Verde, ETHNOGRAPHER - H[employer] SUPERINTENDENT [address] [place] [address] [phone] [facility] Start: 01-22-2020 End: 01-22-2020 Office Visit 01/22/2020 Office Visit Oncology Brenda Rios MD [address] [place] [address] [facility] Start: 01-14-2020 Influenza vaccination Flu vaccine (# 1) [place], [place] Start: 12-18-2019 End: 12-18-2019 Office Visit [facility] Start: 08-09-2019 End: 08-09-2019 Appointment 08/09/2019 Appointment Infusion Therapy [facility] Start: 07-18-2019 End: 07-18-2019 Office Visit 07/18/2019 Office Visit Oncology Brenda Rios MD [address] [place] [address] [facility] Start: 04-25-2019 End: 04-25-2019 Office Visit 04/25/2019 Office Visit Primary Care Brianna Verde ETHNOGRAPHER - HOTSHOT SUPERINTENDENT [address] [place] [address] [phone] [facility] Start: 02-19-2019 End: 02-19-2019 Appointment 02/19/2019 Appointment Sleep [facility] Start: 02-11-2019 End: 02-11-2019 Office Visit 02/11/2019 Office Visit Oncology Carmela Mariscal MD [address] [place] [address] [facility] Start: 01-31-2019 End: 01-31-2019 Office Visit 01/31/2019 Office Visit Oncology Carmela Mariscal MD [address] [place] [address] [facility] Start: 01-13-2019 Influenza vaccination Flu vaccine (# 1) [place], [place] Start: 2017 Lipid panel LIPID SCREENING [facility] Start: 2017 Screening for malign ant neoplasm of breast MAMMOGRAM SCREENING DISCUSSION [facility] Start: 08-15-2007 Screening for malign ant neoplasm of cervix [facility] Start: 1998 Cervical cancer screen Cervical canc er screen [place], [place] Start: 1998 Screening for malign ant neoplasm of cervix [facility] Start: 1996 Hepatitis B vaccination HEP B VACCINE (1 of 3 - 19+ 3-dose series) [facility] Start: 1993 COVID-19 Vaccine (1) COVID-19 Vaccin e (1) [facility] [employer] Phone: Start: 1992 HIV screening HIV SCREENING DISCUSSI ON [facility] Start: 1989 COVID-19 Vaccine (1) COVID-19 Vaccin e (1) [facility]: Start: 02-13-1978 COVID-19 Vaccine (#1) COVID-19 Vacci ne (#1) JEANA [facility]OSS [facility] Start: 1977 Hepatitis C screening HEPATITI S C VIRUS SCREENING [facility] End: 11-25-2020 RAÚL Screen With Reflex RAÚL Screen With Reflex Lab Routine Polyneuropathy 1 Occurrences starting 11/25/2020 until 11/25/2020 [facility] Comment on above: 1 Occurrences starti ng 11/25/2020 until 11/25/2020 RAÚL Screen With Reflex RAÚL Scree n With Reflex Lab Routine Polyneuropathy 11/25/2020 9:20 AM EDT [employer] Phone: End: 02-12-2021 Basic metabolic 2000 panel - Serum or Plasma Basic Metabolic Panel Lab STAT One Time for 1 Occurrences starting 02/12/2021 until 02/12/2021 [employer] Phone: Comment on above: One Time for 1 Occur rences starting 02/12/2021 until 02/12/2021 End: 02-12-2021 CBC panel - Blood by Automated count CBC Lab STAT One Time for 1 Occurrences starting 02/12/2021 until 02/12/2021 [employer] Phone: Comment on above: One Time for 1 Occur rences starting 02/12/2021 until 02/12/2021 End: 11-03-2019 Chlamydia trachomatis DNA, Urine Chlamydia trachomatis DNA, Urine Microbiology Routine One Time for 1 Occurrences starting 11/03/2019 until 11/03/2019 [place] Comment on above: One Time for 1 Occur rences starting 11/03/2019 until 11/03/2019 Chlamydia trachomati s DNA, Urine Chlamydia trachomatis DNA, Urine Microbiology STAT 11/03/2019 1:03 AM EDT [place] End: 05-22-2020 Cobalamin (Vitamin B12) [Mass/Vol] Vitamin B12 Lab Routine Iron deficiency anemia, unspecified iron deficiency anemia type Intestinal malabsorption, unspecified type H/O gastric bypass B12 deficiency 1 Occurrences starting 05/22/2020 until 05/22/2020 [place] Comment on above: 1 Occurrences starti ng 05/22/2020 until 05/22/2020 Cobalamin (Vitamin B 12) [Mass/Vol] Vitamin B12 Lab Routine Iron deficiency anemia, unspecified iron deficiency anemia type Intestinal malabsorption, unspecified type H/O gastric bypass B12 deficiency 05/22/2020 4:49 PM EST [place] End: 04-04-2020 COVID-19, PCR COVID-19, PCR Lab Routine One Time for 1 Occurrences starting 04/04/2020 until 04/04/2020 [place] Comment on above: One Time for 1 Occur rences starting 04/04/2020 until 04/04/2020 COVID-19, PCR COVID-19, PCR La b STAT 04/04/2020 9:25 PM EST [employer] [place] [place] CT HEAD W WO CONTRAST CT HEAD W WO CONTRAST Imaging STAT 06/27/2022 1:15 PM EST [employer] Work Phone: End: 02-12-2021 CT Head WO Contrast CT Head WO Contrast Imaging STAT Once for 1 Occurrences starting 02/12/2021 until 02/12/2021 [employer] Phone: Comment on above: Once for 1 Occurrenc es starting 02/12/2021 until 02/12/2021 End: 07-24-2023 Culture, Urine [employer] Comment on above: 1 Occurrences starti ng 07/24/2023 until 07/24/2023 EKG 12 Lead [employer] Phone: EKG 12 Lead EKG 12 Lead ECG STAT 06/27/2022 12:52 PM EST [employer] Work Phone: EKG 12 Lead (Select if Upper Abd Pain, or SOB, Diaphoresis or Tachy) EKG 12 Lead (Select if Upper Abd Pain, or SOB, Diaphoresis or Tachy) ECG STAT 01/31/2024 9:50 PM EDT [email or web address] Phone: End: 05-22-2020 Folate Folate Lab Routine Iron deficiency anemia, unspecified iron deficiency anemia type Intestinal malabsorption, unspecified type H/O gastric bypass B12 deficiency 1 Occurrences starting 05/22/2020 until 05/22/2020 [employer] [place] Comment on above: 1 Occurrences starti ng 05/22/2020 until 05/22/2020 Folate Folate Lab Routi ne Iron deficiency anemia, unspecified iron deficiency anemia type Intestinal malabsorption, unspecified type H/O gastric bypass B12 deficiency 05/22/2020 4:49 PM EST [employer] [place] End: 02-12-2021 HCG Qualitative, Serum HCG Qualitative, Serum Lab STAT One Time for 1 Occurrences starting 02/12/2021 until 02/12/2021 [employer] Phone: Comment on above: One Time for 1 Occur rences starting 02/12/2021 until 02/12/2021 End: 02-20-2019 Methylmalonic Acid, Serum Methylmalonic Acid, Serum Lab Routine Iron deficiency anemia, unspecified iron deficiency anemia type Intestinal malabsorption, unspecified type H/O gastric bypass B12 deficiency 1 Occurrences starting 02/20/2019 until 02/20/2019 [place] Comment on above: 1 Occurrences starti ng 02/20/2019 until 02/20/2019 Methylmalonic Acid, Serum Methylmalonic Acid, Serum Lab Routine Iron deficiency anemia, unspecified iron deficiency anemia type Intestinal malabsorption, unspecified type H/O gastric bypass B12 deficiency 02/20/2019 7:57 AM EDT [place] End: 02-19-2019 Sleep Study with PAP Titration Sleep Study with PAP Titration Sleep Center Routine WALTER (obstructive sleep apnea) 1 Occurrences starting 02/19/2019 until 02/19/2019 [place] Comment on above: 1 Occurrences starti ng 02/19/2019 until 02/19/2019 End: 02-20-2019 Soluble transferrin receptor Soluble transferrin receptor Lab Routine Iron deficiency anemia, unspecified iron deficiency anemia type 1 Occurrences starting 02/20/2019 until 02/20/2019 [place], [place] Comment on above: 1 Occurrences starti ng 02/20/2019 until 02/20/2019 Soluble transferrin receptor Soluble transferrin receptor Lab Routine Iron deficiency anemia, unspecified iron deficiency anemia type 02/20/2019 7:57 AM T [place] End: 02-12-2021 Troponin I.cardiac [Mass/volume] in Serum or Plasma Troponin Lab STAT One Time for 1 Occurrences starting 02/12/2021 until 02/12/2021 [facility] Phone: Comment on above: One Time for 1 Occur rences starting 02/12/2021 until 02/12/2021 End: 11-25-2020 Vitamin D 1,25 Dihydroxy Vitamin D 1,25 Dihydroxy Lab Routine Hypocalcemia 1 Occurrences starting 11/25/2020 until 11/25/2020 [facility] Phone: Comment on above: 1 Occurrences starti ng 11/25/2020 until 11/25/2020 Vitamin D 1,25 Dihydroxy Vitamin D 1,25 Dihydroxy Lab Routine Hypocalcemia 11/25/2020 9:21 AM EDT [facility] Work Phone: End: 02-12-2021 XR CHEST PORTABLE XR CHEST PORTABLE Imaging STAT Once for 1 Occurrences starting 02/12/2021 until 02/12/2021 [facility] [employer] Work Phone: Comment on above: Once for 1 Occurrenc es starting 02/12/2021 until 02/12/2021 Immunizations Immunization Date Immunization Notes Care Provider Dedra holloway 03-20-2018 influenza, injectabl e, quadrivalent, preservative free [place] 03-20-2018 Influenza, Quadv, 6 mo and older, IM, PF (Flulaval, Fluarix) Chepe Stafford [facility] 06-20-2016 influenza, injectabl e, quadrivalent, preservative free [place] 06-20-2016 influenza virus vaccine, unspecified formulation Wayne Joseph DO Work Phone: [facility] 11-17-2012 tetanus toxoid, redu jairon diphtheria toxoid, and acellular pertussis vaccine, [facility] Date Payer Category Payer Unknown [facility] [employer] [id number] 2023-Present [address] [place] [address] [id number] 2022 Self-pay 2016 Unknown [facility] xxxxxxxxxxx 2016-Present [phone] CLAIMS DEPARTMENT [address] [place] [address] xxxxxxxxxxx [id number] 2016 Unknown [id number]. [id number] 1977 Unknown [id number] 2.16.840.1.998181.3.579.2.175 1977 Unknown [id number] 2.16.840.1.461826.3.579.2.593 1977 Unknown [id number] 2.16.840.1.770472.3.579.2.173 1977 Unknown [id number] 2.16.840.1.877476.3.579.2.173 1977 Unknown [id number] 2.16.840.1.271749.3.579.2.173 1977 Unknown [id number] 2.16.840.1.241478.3.579.2.173 1977 Unknown [id number] 2.16.840.1.743198.3.579.2.173 1977 Unknown [id number] 2.16.840.1.501764.3.579.2.173 1977 Unknown [id number] 2.16.840.1.336886.3.579.2.173 1977 Unknown [id number] 2.16.840.1.509956.3.579.2.173 1977 Unknown [id number] 2.16.840.1.094522.3.579.2.173 1977 Unknown [id number] 2.16.840.1.741634.3.579.2.173 1977 Unknown [id number] 2.16.840.1.808108.3.579.2.173 1977 Unknown [id number] 2.16.840.1.944320.3.579.2.983 1977 Unknown [id number] 2.16.840.1.531206.3.579.2.983 1977 Unknown [id number] 2.16.840.1.949359.3.579.2.983 1977 Unknown [id number] 2.16.840.1.896784.3.579.2.983 1977 Unknown [id number] 2.16.840.1.362311.3.579.2.983 1977 Unknown [id number] 2.16.840.1.499623.3.579.2.1286 1977 Unknown [id number] 2.16.840.1.142195.3.579.2.1286 1959 Unknown [id number] Social History Date Type Detail Facility Start: 12-24-2018 End: 02-22-2024 Tobacco smoking status NHIS Never smoker [place] Start: 12-24-2018 End: 03-21-2024 Alcohol intake No [place] Start: 1975 Sex Assigned At Not on file [place] Start: 06-23-2019 End: 01-31-2024 Alcohol intake Current non-drinker of alcohol (finding) [place] Start: 06-18-2019 [facility] Start: 06-18-2019 End: 11-25-2020 [facility]: Exposure to SARS-CoV -2 (event) Unable to assess [place] Start: 11-13-2019 End: 02-22-2024 Tobacco use and exposure Never used [place] Start: 08-29-2021 End: 06-27-2022 Exposure to SARS-CoV-2 (event) Not sure [place] Start: 11-25-2020 History SDOH [facility]: Start: *Tobacco [employer] Start: Caffeine [employer] Start: 07-24-2023 End: 03-21-2024 History of Social function [employer] How hard is it for y ou to pay for the very basics like food, housing, medical care, and heating Not hard at all [employer] (I/We) worried lourdesrohan laly (my/our) food would run out before (I/we) got money to buy more. Never true [employer] At any time in the p ast 12 months, were you homeless or living in intermediate [including now]? No [employer] Start: 07-24-2023 Tobacco Comment Never even tried [employer] Tobacco smoking stat [facility] Tobacco smoking consumption unknown [facility] Start: 01-23-2017 Gender identity Identifies as female gender (finding) [facility] How often to you hav e a drink containing alcohol? Never [employer] Clinical Notes 09-04-2020 to 03-21-2024 KEI Calixto 03/21/2024 10:45 AM ESTRKEI Potter 03/21/2024 10:45 AM ESTAddendum Note - KEI Calixto 03/21/2024 10:45 AM ESTDischarge InstructionsAttachments Note Date & Type Note Facility 03-21-2024 History of Presen t illness Narrative Regarding Weight Gain: Chandana Washington is a 48 y.o. y.o. female who presents today with the complaint of obesity. She states that she has had gradual weight gain and would like to have assistance with weight loss. She is up 5 lbs this month. 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 We have discussed with patient that all health optimization treatment is voluntary. Risks and benefits have been discussed of medically managed weight loss treatments. Patient elects to start/continue managed weight loss therapy and Phentermine. Chandana was seen today for follow-up. Diagnoses and all orders for this visit: Morbid obesity with body mass index of 50 or higher - LIPID PANEL W CALCULATED LDL; Future - phentermine 30 MG capsule; Take 1 capsule by mouth daily. Type 2 diabetes mellitus without complication, unspecified whether assisted insulin use - LIPID PANEL W CALCULATED [...] PA-C Bariatric Surgery documented in this encounter [facility] 03-21-2024 History of Presen t illness Narrative Regarding Weight Gain: Chandana Washington is a 48 y.o. y.o. female who presents today with the complaint of obesity. She states that she has had gradual weight gain and would like to have assistance with weight loss. She is up 5 lbs this month. 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 We have discussed with patient that all health optimization treatment is voluntary. Risks and benefits have been discussed of medically managed weight loss treatments. Patient elects to start/continue managed weight loss therapy and Phentermine. Chandana was seen today for follow-up. Diagnoses and all orders for this visit: Morbid obesity with body mass index of 50 or higher - LIPID PANEL W CALCULATED LDL; Future - phentermine 30 MG capsule; Take 1 capsule by mouth daily. Type 2 diabetes mellitus without complication, unspecified whether long chain quiller tender insulin use - LIPID PANEL W CALCULATED [...] PA-C Bariatric Surgery documented in this encounter [facility] 03-21-2024 Miscellaneous Notes Addended by: JANELL BALDWIN on: 03/22/2024 03:18 PM Modules accepted: Orders documented in this encounter [facility] 03-21-2024 Note Addended by: JANELL BALDWIN on: 03/22/2024 03:18 PM Modules accepted: Orders [facility] 03-21-2024 History of Presen t illness Narrative OUTPATIENT BARIATRIC POST-SX NUTRITION ASSESSMENT Referring Provider: Janell Baldwin PA-C Nutrition Assessment Anthropometrics: Ht Readings from Last 1 Encounters: 02/22/24 1.626 m (5' 4 ) Wt Readings from Last 10 Encounters: 03/21/24 (!) 146.7 kg (323 lb 8 oz) 02/22/24 (!) 144.6 kg (318 lb 12.8 oz) 01/23/24 (!) 147.6 kg (325 lb 6.4 oz) [place] body weight: 54.7 kg (120 lb 9.5 [...] calcium twice per day Meeting all bariatric SUPERVISOR LOCOMOTIVE recommendations Nutrition-Related Hx: Allergies/Intolerances: Splenda Foods avoided for orthodoxy or other reasons: NA Current Supplements: Yes [...] 20-30 minutes: NOT MET Subjective comments: Ms. Chandana Washington is a 48 y.o. female here for a bariatric surgery post-op visit. Pt is ~19 years s/p RYGB in [place], [place]. Pt is experiencing weight regain post-op. [...] Licensed Dietitian 03/21/24 documented in this encounter [facility] 02-22-2024 History of Presen t illness Narrative Chief Complaint Patient presents with New Patient [facility] new patient Patient here for Medical Weight Loss [place]: Chandana Washington is a 48 y.o. y.o. female who [...] mass index is 54.72 kg/m . Assessment/Plan Chandana was seen today for new patient. Diagnoses [...] 2 diabetes mellitus without complication, unspecified whether long chain quiller tender insulin use - COMPREHENSIVE METABOLIC PANEL; Future - HEMOGLOBIN A1C; Future Here today for medically managed weight loss therapy. Patient making dietary changes and lifestyle changes to tank builder helper in weight loss. We have discussed [...] and General Surgery documented in this encounter [facility] 02-01-2024 Hospital Discharg e instructions Pily Mariscal MD - 02/01/2024 12:53 [...] cannot be sent through Care Everywhere.Abdominal Pain (Niuean)UTI (Urinary Tract Infection): Female (Niuean)documented in this encounter [facility] 01-23-2024 History of Presen t illness Narrative Bariatric History and Physical Patient:Chandana Washington :1975 Date: 01/23/2024 PRIMARY/REFERRING PHYSICIAN INFORMATION No primary care provider on file. HISTORY OF PRESENT ILLNESS CHIEF COMPLAINT: morbid obesity with significant comorbidities. Patient is being referred for pre operative consult for weight loss surgery HISTORY OF PRESENT ILLNESS: The patient is a very pleasant patient who has developed morbid obesity with significant comorbidities who has failed multiple dietary attempts at weight loss. Chandana Washington is a 48 y.o. female who presents [...] a history of RYGB in 2004 in [place], [place]. Past Medical History: Diagnosis Date Anemia [...] Reactions Anesthesia S-I-40 [Propofol] Causes Blood clots [place] Wrtnnl-Xedlnpikzvt-Pmuomx Latex [Wound Dressing Adhesive] Rash and Swelling [...] Resource Strain: Low Risk (07/24/2023) Received from [facility] Overall Financial Resource Strain (CARDIA) Difficulty of Paying Living Expenses: Not hard at all Food Insecurity: No Food Insecurity (07/24/2023) Received from [facility] Hunger Vital Sign Worried About Running Out of Food in the Last Year: Never true Ran Out of Food in the Last Year: Never true Transportation Needs: Unknown (07/24/2023) Received from [facility] PRAPARE - Transportation Lack of Transportation [...] 2 diabetes mellitus without complication, unspecified whether long chain quiller tender insulin use Essential hypertension with Body mass index is 55.85 kg/m2. Height: 5'4 Weight:325 lbs SURGICAL PLAN I had a long discussion with Chandana about her options for weight loss. These [...] PM Bariatric Surgery documented in this encounter [facility] 06-27-2022 Hospital Discharg e instructions Surinder Mireles MD - 06/27/2022 2:44 PM EST Take your medications as prescribed. Follow-up with your neurologist in the next 2 to 3 days for reevaluation. Follow-up with your primary care physician as well. Return to the emergency department if you develop any new or worsening symptoms. The following attachments cannot be sent through Care Everywhere.Headache (Niuean)documented in this encounter [employer] Phone: 11-08-2021 History of Presen t illness Narrative [facility] Outpatient Physical Therapy Evaluation Date: 11/08/2021 Patient: Chandana Washington : 1975 CSN #: [id number] Referring Physician: Brianna Verde APRN - * [...] improve tolerance for strengthening and mobility exercises [facility] Goals Time Frame for intermediate goals : 6 weeks intermediate goal 1: Pt will be independent and compliant with HEP. exterminator helper termite goal 2: Pt will improve BLE strength grossly to 4 to 4+/5 for improved functional mobility. intermediate goal 3: Pt will improve L shld strength to >/= 4 to 4+/5 for ease of lifting/carrying tasks. intermediate goal 4: Pt will report >/= 50% improvement in pain and overall function to improve QOL. Patient goals : to get strength/endurance back Minutes Tracking: Time In: 1545 Time Out: 1623 Minutes: 38 Timed Code Treatment Minutes: 35 Minutes Sujit Aguirre PT, DPT 11/08/2021 documented in this encounter [employer] Phone: 09-20-2021 History of Presen t illness Narrative [facility] Inpatient/Observation/Outpatient Rehabilitation Date: 09/20/2021 Patient Name: Chandana Washington [] Inpatient Acute/Observation [] Outpatient : 1975 [] Pt no showed for scheduled appointment [] Pt refused/declined therapy at this time due to: [x] Pt cancelled due to: [] No Reason Given [x] Sick/ill [] Other: Therapist/Manager Product Marketing will attempt to see this patient, at our earliest opportunity. Zulema Vincent Date: 09/20/2021 documented in this encounter [facility] Phone: 08-06-2021 History of Presen t illness Narrative [facility] Inpatient/Observation/Outpatient Rehabilitation Date: 08/05/2021 Patient Name: Chandana Washington [] Inpatient Acute/Observation [] Outpatient : 1975 [] Pt no showed for scheduled appointment [] Pt refused/declined therapy at this time due to: [x] Pt cancelled due to: [] No Reason Given [] Sick/ill [x] Other: Daughter is having surgery Therapist/Manager [employer] Marketing will attempt to see this patient, at our earliest opportunity. Zulema Vincent Date: 08/05/2021 documented in this encounter [facility] Phone: 07-16-2021 History of Presen t illness Narrative [facility] Outpatient Physical Therapy Evaluation Date: 07/16/2021 Patient: Chandana Washington : 1975 CSN #: [id number] Referring Practitioner: DEIRDRE Solares Referral Date : [...] a hard time doing dishes and other bedspread cutter hand. Pt states she has fallen ~8 times [...] improve tolerance for strengthening and mobility exercises. intermediate goals Time Frame for exterminator helper termite goals : 6 weeks exterminator helper termite goal 1: Pt will be independent and compliant with HEP. intermediate goal 2: Pt will improve BLE strength grossly to 4 to 4+/5 for improved functional mobility. intermediate goal 3: Pt will improve L shld strength to >/= 4 to 4+/5 for ease of lifting/carrying tasks. exterminator helper termite goal 4: Pt will report >/= 50% improvement in pain and overall function to improve QOL. Patient goals : None stated Minutes Tracking: Time In: 1600 Time Out: 1641 Minutes: 41 Timed Code Treatment Minutes: 40 Minutes Donna Damon PT, DPT 07/16/2021 documented in this encounter [facility] Phone: 02-12-2021 Hospital Discharg Ebony Pa, DO - 02/12/2021 You have chosen to [...] for repeat evaluation. documented in this encounter [facility] Phone: 11-06-2020 History of Presen t illness Narrative [facility] Inpatient/Observation/Outpatient Rehabilitation Date: 11/06/2020 Patient Name: Chandana Washington [x] Outpatient : 1975 [x] Pt no showed for scheduled appointment Pj Siddiqui PT, DPT Date: 11/06/2020 documented in this encounter [facility] Phone: 10-30-2020 History of Presen t illness Narrative [facility] Inpatient/Observation/Outpatient Rehabilitation Date: 10/30/2020 Patient Name: Chandana Washington [x] Outpatient : 1975 [x] Pt no showed for scheduled appointment Pj Siddiqui PT, DPT Date: 10/30/2020 documented in this encounter [facility] [employer] Phone: 10-23-2020 Hospital Discharg Pily Marsh MD - 10/23/2020 Tylenol and/or Motrin as needed for pain. Use [place] in place of Tylenol for pain not controlled with Tylenol. Zwvv-git-fbodqwg Orajel or similar prior to cotton swab [...] sent through Care Everywhere.Tooth and Gum Pain (Niuean)Insect Stings and Bites (Niuean)documented in this encounter [facility] [employer] Phone: 09-22-2020 History of Presen t illness Narrative [facility] Outpatient Physical Therapy Daily Note Patient: Chandana Washington : 1975 CSN #: [id number] Referring Practitioner: Stephanie Arredondo MD Referral Date : 08/17/20 Date: 09/22/2020 Diagnosis: Chronic migraines, G43.709 Treatment Diagnosis: Cervicogenic KO's, L shoulder impingement PT Insurance Information: [facility] Total # of Visits Approved: 18 [...] pt required further clarification. Post Treatment Pain: 310 Plan Times per week: 2-3 Plan weeks: 6 Goals (Total # of Visits to Date: 6) Short term goals Time Frame for Short term goals: 3 weeks Short term goal 1: Patient will be initiated with a HEP -met Short term goal 2: Patient will tolerate manual techniques to decrease muscle tension and sensitivity -met intermediate goals Time Frame for exterminator helper termite goals : 6 weeks intermediate goal 1: Patient will be independent and compliant with a HEP intermediate goal 2: Patient will improve R cervical spine rotation to match L exterminator helper termite goal 3: Patient will report decreased neck pain to <6/10 at worst intermediate goal 4: Patient will report 70% improvement in symptoms and overall function. Minutes Tracking: Time In: 1430 Time Out: 1517 Minutes: 47 Anusha Torres PTA Date: 09/22/2020 documented in this encounter [employer] Phone: 09-18-2020 History of Presen t illness Narrative [facility] Outpatient Physical Therapy Daily Note Patient: Chandana Washington : 1975 CSN #: [id number] Referring Practitioner: Stephanie Arredondo MD Referral Date : 08/17/20 Date: 09/18/2020 Diagnosis: Chronic migraines, G43.709 Treatment Diagnosis: Cervicogenic KO's, L shoulder impingement PT Insurance Information: [facility] Total # of Visits Approved: 18 [...] to decrease muscle tension and sensitivity -met intermediate goals Time Frame for exterminator helper termite goals : 6 weeks exterminator helper termite goal 1: Patient will be independent and compliant with a HEP intermediate goal 2: Patient will improve R cervical spine rotation to match L exterminator helper termite goal 3: Patient will report decreased neck pain to <6/10 at worst exterminator helper termite goal 4: Patient will report 70% improvement in symptoms and overall function. Minutes Tracking: Time In: 1515 Time Out: 1600 Minutes: 45 Anusha Torres PTA Date: 09/18/2020 documented in this encounter [facility] Phone: 09-04-2020 History of Presen t illness Narrative [facility] Outpatient Physical Therapy Evaluation Date: 09/04/2020 Patient: Chandana Washington : 1975 [facility] #: [id number] Referring Practitioner: Stephanie Arredondo MD Referral Date : 08/17/20 Medical Diagnosis: Chronic migraines, G43.709 Treatment Diagnosis: Cervicogenic KO's, L shoulder impingement PT Insurance Information: [facility] Total # of Visits Approved: 18 [...] techniques to decrease muscle tension and sensitivity exterminator helper termite goals Time Frame for exterminator helper termite goals : 6 weeks intermediate goal 1: Patient will be independent and compliant with a HEP exterminator helper termite goal 2: Patient will improve R cervical spine rotation to match L exterminator helper termite goal 3: Patient will report decreased neck pain to <6/10 at worst intermediate goal 4: Patient will report 70% improvement in symptoms and overall function. Patient goals : Manage pain Minutes Tracking: Time In: 1315 Time Out: 1425 Minutes: 70 Timed Code Treatment Minutes: 66 Minutes Pj Siddiqui PT, DPT 09/04/2020 documented in this encounter [facility] Phone: Evaluation note Diagnosis Pain, dental- Primary Unspecified disorder of the teeth and supporting structures Insect bite of right upper arm, initial encounter documented in this encounter [facility] Phone: evaluation note* Diagnosis Polyneuropathy Unspecified hereditary and idiopathic peripheral neuropathy Hypocalcemia documented in this encounter [facility] Phone: evaluation note* Diagnosis Diarrhea, unspecified type- Primary Nonintractable headache, unspecified chronicity pattern, unspecified headache type Syncope and collapse documented in this encounter [employer] Phone: evaluation note* Diagnosis B12 deficiency Other B-complex deficiencies documented in this encounter [facility] [employer] Phone: evalyscscm note* Diagnosis Acute nonintractable headache, unspecified headache type- Primary documented in this encounter [facility] [employer] Phone: evalpsddav note* Diagnosis Acute UTI Urinary tract infection, site not specified documented in this encounter [facility] Diagnosis Morbid obesity with BMI of 50.0-59.9, adult- Primary Type 2 diabetes mellitus without complication, unspecified whether long chain quiller tender insulin use Essential hypertension Unspecified essential hypertension [facility]* Diagnosis Abdominal pain, unspecified abdominal location- Primary Urinary tract infection without hematuria, site unspecified documented in this encounter [facility]* Diagnosis Morbid obesity with body mass index of 50 or higher- Primary WALTER (obstructive sleep apnea) Obstructive sleep apnea (adult) (pediatric) Type 2 diabetes mellitus without complication, unspecified whether assisted insulin use documented in this encounter [facility]* Diagnosis Nutritional counseling- Primary Morbid obesity with BMI of 50.0-59.9, adult documented in this encounter [facility]* Diagnosis Morbid obesity with body mass index of 50 or higher- Primary Type 2 diabetes mellitus without complication, unspecified whether assisted insulin use documented in this encounter [facility] [employer] [facility]* Diagnosis Morbid obesity with body mass index of 50 or higher- Primary Type 2 diabetes mellitus without complication, unspecified whether assisted insulin use documented in this encounter [facility] (n[facility]ative)* Consultation (Routine) - New Request Specialty Diagnoses / Procedures Referred By Salome walsh Referred To Contact Sleep Medicine Diagnoses Morbid obesity with body mass index of 50 or higher WALTER (obstructive sleep apnea) Janell Baldwin, KEI [address] [place] [address] Jenny Merritt, ETHNOGRAPHER-HOTSHOT SUPERINTENDENT [address] [place] [address] Referral ID Status Reason Start Date Expiration Date V isits Requested Visits Authorized [id number] New Request 02/22/2024 03/18/2025 1 1 [facility] Discharge Instructions * Instructions* Chandana Cordova PA-C - 12/24/2018 Call to arrange follow-up with primary care this week. * Attachments The following attachments cannot be sent through Care Everywhere. * Sore Throat (Niuean) documented in this encounter* Attachments The following attachments cannot be sent through Care Everywhere. * Chest Pain (Niuean) documented in this encounter* Attachments The following attachments cannot be sent through Care Everywhere. * Viral Infections (Niuean) * Coronavirus Disease (COVID-19): General Info (Niuean) documented in this encounter* Instructions* Emil Mays [...] sent through Care Everywhere. * Tawana Dermatitis (Niuean) * Back: Strain (Niuean) documented in this encounter* Attachments The following attachments cannot be sent through Care Everywhere. * URI (Upper Respiratory Infection) (Niuean) * Parotitis (Niuean) documented in this encounter* Instructions* Pily Mariscal MD - 06/28/2020 Tylenol and or Motrin as needed for any pain. May use [place] in place of Tylenol for pain not controlled with [id number] medications. Continue your current medications as prescribed heat or ice as desired for comfort. With a primary care physician for evaluation. Seek medical attention for anyacute concerns. * Attachments The following attachments cannot be sent through Care Everywhere. * Contusion (Niuean) documented in this encounter* Attachments The following attachments cannot be sent through Care Everywhere. * Tonsillitis (Niuean) documented in this encounter Assessments Diagnosis Acute [...] FoundDocuments on File Type Date Recorded Patient Credit Control Clerk Expl anation Advance Directives and Living Will Power of Corner Cutter Machine Operator Latest Code Status on File Code Status Date Activated Date Inactivated Comments Full Code 03/19/2018 8:00 AM 03/20/2018 3:23 PM Full Code 01/23/2017 7:49 PM 02/03/2017 5:05 PM Documents on File Type Date Recorded Patient Credit Control Clerk Expl anation Advance Directives and Living Will Power of Corner Cutter Machine Operator Latest Code Status on File Code Status Date Activated Date Inactivated Comments Full Code 03/19/2018 8:00 AM 03/20/2018 3:23 PM Full Code 01/23/2017 7:49 PM 02/03/2017 5:05 PM Documents on File Type Date Recorded Patient Credit Control Clerk Expl anation ACP-Advance Directive ACP-Power of Corner Cutter Machine Operator Healthcare Agents on File Name Relationship Healthcare [...] Documents on File Type Date Recorded Patient Credit Control Clerk Expl anation ACP-Advance Directive ACP-Power of Corner Cutter Machine Operator Healthcare Agents on File Name Relationship Healthcare [...] Study with PAP Titration Brianna Verde W, ETHNOGRAPHER - HOTSHOT SUPERINTENDENT [address] [place] [address] Specialty Diagnoses / Procedures Referred By Contac t Referred To Contact General Surgery Diagnoses Morbid obesity with BMI of 50.0-59.9, adult Type 2 diabetes mellitus without complication, unspecified whether assisted insulin use Essential hypertension Wayne Joseph, DO [address] [place] [address] Janell Baldwin, KEI [address] [place] [address] Referral ID Status Reason Start Date Expiration Date V isits Requested Visits Authorized [id number] New Request 01/23/2024 02/16/2025 1 1 Additional [...] Brenda Calhoun MD [address] [place] [address] [facility] [address] [place] [address] Reason Comments Abdominal Pain left and right [...] Sleep Study with PAP Titration Brianna Verde, ETHNOGRAPHER - HOTSHOT SUPERINTENDENT [address] [place] [address] Reason Comments Fall patient fell last ni [...] shoulder pain Chronic neck pain Brianna Verde, ETHNOGRAPHER - HOTSHOT SUPERINTENDENT [address] [place] [address] [facility] Physical Therapy [address] [place] [address] Referral ID Status Reason Start Date Expiration Date V isits Requested Visits Authorized [id number] Open Specialty Services Required 05/21/2021 05/21/2022 1 [...] 2 diabetes mellitus without complication, unspecified whether long chain quiller tender insulin use Essential hypertension Wayne Joseph, DO [address] [place] [address] Janell Baldwin PA-C [address] [place] [address] Referral ID Status Reason Start Date Expiration Date V isits Requested Visits Authorized [id number] New Request 01/23/2024 02/16/2025 1 1 Reason Comments Nutrition Consultation Specialty Diagnoses / Procedures Referred By Contac t Referred To Contact Registered Dietitian / Nutrition and Dietetics Diagnoses mwl initial Procedures NEW PATIENT - GEOVANNI Janell Baldwin PA-C [address] [place] [address] Jean Paul Almanzar, RD [address] [place] [address] Referral ID Status Reason Start Date Expiration Date V isits Requested Visits Authorized [id number] Pending Review 03/21/2024 04/15/2025 1 1 Reason Comments Follow-up [facility] INFORMATION SOURCE (unrecogn ized section and content) DATE CREATED AUTHOR 07/18/2019 [facility] DATE CREATED AUTHOR AUTHOR'S ORGANIZ ATION 01/18/2021 [facility] DATE CREATED AUTHOR AUTHOR'S ORGANIZ ATION 09/08/2023 [facility] DATE CREATED AUTHOR AUTHOR'S ORGANIZ ATION 02/03/2024 [facility] DATE CREATED AUTHOR AUTHOR'S ORGANIZ ATION 03/23/2024 [facility] DATE CREATED AUTHOR AUTHOR'S ORGANIZ ATION 10/20/2024 [facility] Ordered Prescriptions (unrec ognized section and content) [...] specifically ordered. 223 (Given - Provider: Daniella Boles RN) ondansetron (ZOFRAN) injection 4 mg (COMPLETED) 4 [...] be given over 10 to 15 minutes 2212 (New Bag - Provider: Amanda Stern, RN)2344 (Stopped - Provider: Daniella Boles, RN) sodium chloride flush 0.9 % injection 3 mL(Linked Group 1) 3 mL, IntraVENous, EVERY 8 HOURS, First dose on Mon01/31/24 at 2130, Until Discontinued, Flush line with 3-5 mL 2236 (Given - Provider: Daniella Boles, RN) 0530 (Due)1330 (Due)2130 (Due) PRN Medication [...] Care Teams (unrecognized sec tion and content) Landscape Specialist Relationship Specialty Start Date End Date Might, Brianna Chavez APRN [facility] PCP - General Nurse Practitioner 06/16/16 Landscape Specialist Relationship Specialty Start Date End Date MightBrianna APRN [facility] PCP - General Nurse Practitioner 06/16/16 Landscape Specialist Relationship Specialty Start Date End Date Might, Brianna Chavez APRN [facility] PCP - General Nurse Practitioner 06/16/16 Landscape Specialist Relationship Specialty Start Date End Date Might, Brianna Chavez APRN [facility] PCP - General Nurse Practitioner 06/16/16 Landscape Specialist Relationship Specialty Start Date End Date Might, Brianna KtahyRUBIN [facility] PCP - General Nurse Practitioner 06/16/16 Landscape Specialist Relationship Specialty Start Date End Date Might, [facility] - General Nurse Practitioner 06/16/16 Landscape Specialist Relationship Specialty Start Date End Date Might, Brianna Kathy [facility] PCP - General Nurse Practitioner 06/16/16 Landscape Specialist Relationship Specialty Start Date End Date Might, Brianna KathyRUBIN [facility] PCP - General Nurse Practitioner 06/16/16 Landscape Specialist Relationship Specialty Start Date End Date Might, Brianna KathyRUBIN [facility] PCP - General Nurse Practitioner 06/16/16 Landscape Specialist Relationship Specialty Start Date End Date Might, Brianna KathyRUBIN [facility] PCP - General Nurse Practitioner 06/16/16 FOR [...] BE BASED ON THE PRIMARY CLINICAL RECORDS. [facility], [facility]. provides no warranty or guarantee of the accuracy or completeness of information in this document.
--- NOTE | 2024-10-29 00:03 | ED.NAVMDI1 ---
HPI - Nausea/Vomiting/Diarrhea General Chief complaint: Nausea/Vomiting/Diarrhea Stated complaint: abd pain Time Seen by Provider: 10/28/24 23:16 Source: patient Mode of arrival: Wheelchair Limitations: no limitations History of Present Illness HPI Narrative: This 49-year-old female who had gastric bypass surgery in 2004 with a revision at [facility] several years later presents for evaluation of nausea vomiting and epigastric abdominal pain. The patient states her pain started out like labor pains which she states is similar to when she has a bowel obstruction. She had multiple episodes of vomiting prior to arrival. She states she is feeling somewhat better at this time. She states she is passing minimal gas. She states that the center where she had her gastric bypass surgery was closed after she had her surgery and she does not have any follow-up with a bariatric surgeon. She did have a bowel obstruction and had a segment of colon which she describes as being and had a revision at [facility] several years later. She denies any chest pain or shortness of breath. She denies any fevers or chills. Related Data Home Medications ?Medication ?Instructions ?Recorded ?Confirmed fluoxetine 10 mg capsule 10 mg PO BEDTIME 06/08/24 10/28/24 lurasidone 80 mg tablet 80 mg PO DAILY 06/08/24 10/28/24 propranolol 20 mg tablet 20 mg PO BID 06/08/24 10/28/24 tizanidine 4 mg tablet 4 mg PO BID 06/08/24 10/28/24 venlafaxine 150 mg 150 mg PO DAILY 06/08/24 10/28/24 capsule,extended release 24 hr buspirone 15 mg tablet mg 10/28/24 dicyclomine 20 mg tablet mg 10/28/24 gabapentin 300 mg capsule mg 10/28/24 prazosin 1 mg capsule mg 10/28/24 Previous Rx's ?Medication ?Instructions ?Recorded ondansetron 4 mg disintegrating 4 mg PO Q6H PRN nausea and 06/08/24 tablet vomiting #20 tabs sumatriptan succinate 100 mg See Rx Instructions PO .COMPLEX 06/08/24 tablet (Imitrex) #14 tabs Allergies Allergy/AdvReac Type Severity Reaction Status Date / Time bee venom protein (honey bee) Allergy Severe Anaphylaxis Verified 10/28/24 22:52 ibuprofen AdvReac Severe due to Verified 10/28/24 22:52 surgery artificial sweetener Allergy Anaphylaxis Uncoded 10/28/24 22:52 Review of Systems ROS Status of ROS 10 or more systems reviewed and unremarkable except as noted in history and below PFSH PFS Social History Smoking status: Never smoker Little interest or pleasure in doing things: not at all Feeling down, depressed, or hopeless: not at all Exam Narrative Exam Narrative: Vital signs and Nursing Notes reviewed: Patient is afebrile, she has a normal pulse, blood pressure is elevated 150/100, she is not hypoxic with pulse ox of 97% on room air General: Awake, alert, oriented, obese female sitting comfortably on the stretcher, no respiratory distress, no active vomiting HEENT: Normocephalic atraumatic, mucous membranes are pink and slightly dry Neck: Supple, no meningeal signs, no anterior or posterior cervical lymphadenopathy Chest: Lungs are clear to auscultation with good air entry, there is no wheezing rhonchi or rales appreciated no accessory muscle use, patient is speaking in complete sentences-no chest wall tenderness to palpation CVS: Regular rate and rhythm S1-S2, no murmurs rubs or gallops, pulses are brisk and equal bilaterally ABD: Obese, soft, bowel sounds are minimally hypoactive, there is no rebound guarding or rigidity appreciated Extremities: Moving all extremities, no lower extremity tenderness or swelling noted, negative Homans' sign, pulses are brisk and equal bilaterally Skin: Normal in appearance without rash,pallor, petechiae or purpura Neuro: No focal deficits Constitutional Vital Signs, click to edit/add: Last Vital Signs Temp 98.1 F 10/28/24 22:45 Pulse 80 10/29/24 02:55 Resp 14 10/29/24 02:55 BP 134/78 10/29/24 02:55 Pulse Ox 96 10/29/24 02:55 O2 Del Method Room Air 10/29/24 02:55 Course Vital Signs Vital signs: Vital Signs Temperature 98.1 F 10/28/24 22:45 Pulse Rate 96 H 10/28/24 22:45 Respiratory Rate 18 10/28/24 22:45 Blood Pressure 152/100 H 10/28/24 22:45 Pulse Oximetry 97 10/28/24 22:45 Oxygen Delivery Method Room Air 10/28/24 22:45 Temperature 98.1 F 10/28/24 22:45 Pulse Rate 80 10/29/24 02:55 Respiratory Rate 14 10/29/24 02:55 Blood Pressure 134/78 10/29/24 02:55 Pulse Oximetry 96 10/29/24 02:55 Oxygen Delivery Method Room Air 10/29/24 02:55 MDM - Nausea/Vomiting/Diarrhea MDM Narrative Medical decision making narrative: This 49-year-old female who had gastric bypass surgery in 2004 then a revision several years later and has had bowel obstructions in the past presents for evaluation of abdominal cramping that she describes as labor pains which she has had in the past when she had a bowel obstruction as well as multiple episodes of vomiting prior to arrival. Upon arrival she states she is feeling somewhat better. She has not passed any gas. She is well-appearing. Vital signs are stable. Mucous membranes are slightly dry. Her abdomen is soft with mildly hypoactive bowel sounds. An IV was placed and she was medicated with IV fluids, Pepcid, Zofran and morphine. Routine labs are ordered. She has normal white count and stable hemoglobin. Electrolyte panel and liver function tests are normal. Lipase and lactic acid are normal as well. CT scan of the abdomen pelvis with the bariatric protocol including p.o. and IV contrast was ordered to rule out small bowel obstruction or other acute abnormality. CT scan was negative for bowel obstruction but did show an epigastric ventral hernia with a short segment of bowel loop inside. The remainder of the CT scan was normal. The CT scan was discussed with the patient. She requested a copy for her records. She was given additional IV fluids and additional dose of Zofran and Dilaudid after the CT scan due to recurrence of pain with nausea and an episode of vomiting after drinking a small amount of contrast. She did not have any additional episodes of vomiting while in the emergency department. She was ambulatory without difficulty. She was discharged home with a prescription for Reglan at her request and she also requested something for pain. I did explain to her that pain will make her gut motility less active and contribute to decreased bowel function. She states she understands that but the pain was severe. She is otherwise stable for discharge. She was encouraged to follow-up with her family physician, I encouraged her to drink clear liquids and slowly advance her diet over the next several days to prevent a bowel obstruction. Lab Data Labs: Lab Results 06/17/25 Range/Units 00:22 WBC 10.8 (4.0-11.0) 10^3/uL RBC 4.37 (4.20-5.40) 10^6/uL Hgb 12.4 (12.0-16.0) g/dL Hct 37.3 (36.0-48.0) % MCV 85.4 (81.0-99.0) fL MCH 28.4 (26.7-34.0) pg MCHC 33.2 (29.9-35.2) g/dL RDW 14.8 (11.0-15.0) % Plt Count 353 (150-450) 10^3/uL MPV 11.5 (9.5-13.5) fL Neut % (Auto) 64.0 (43.0-75.0) % Lymph % (Auto) 25.4 (20.5-60.0) % Angelina % (Auto) 5.3 (1.7-12.0) % Eos % (Auto) 4.1 (0.9-7.0) % Baso % (Auto) 0.6 (0.2-2.0) % Neut # (Auto) 6.9 H (1.4-6.5) 10^3/uL Lymph # (Auto) 2.7 (1.2-3.8) 10^3/uL Angelina # (Auto) 0.6 (0.3-0.8) 10^3/uL Eos # (Auto) 0.4 (0.0-0.7) 10^3/uL Baso # (Auto) 0.1 (0.0-0.1) 10^3/uL Abs Immat Gran (auto) 0.06 H (0.00-0.03) 10^3/uL Imm/Tot Granulo (auto) 0.6 H (0.0-0.5) % Sodium 134 L (136-145) mmol/L Potassium 3.9 (3.5-5.1) mmol/L Chloride 100 (98-107) mmol/L Carbon Dioxide 25.0 (21.0-32.0) mmol/L Anion Gap 12.9 BUN 10.0 (7.0-18.0) mg/dL Creatinine 0.67 (0.55-1.02) mg/dL Est GFR ( Amer) >60 (>=60 mL/min/1.73m^2) Est GFR (Non-Af Amer) >60 (>=60 mL/min/1.73m^2) BUN/Creatinine Ratio 14.9 Glucose 114 H (74-106) mg/dL Lactate 1.3 (0.4-2.0) mmol/L Calcium 9.6 (8.5-10.1) mg/dL Total Bilirubin 0.3 (0.2-1.0) mg/dL AST 11 L (15-37) U/L ALT 8 L (14-59) U/L Alkaline Phosphatase 105 (46-116) U/L Total Protein 7.8 (6.4-8.2) g/dL Albumin 3.4 (3.4-5.0) g/dL Globulin 4.4 g/dL Albumin/Globulin Ratio 0.8 Lipase 19.0 (16.0-77.0) U/L Discharge Plan Discharge Chief Complaint: Nausea/Vomiting/Diarrhea Clinical Impression: Abdominal pain, Nausea & vomiting Patient Disposition: Home, Self-Care Time of Disposition Decision: 04:23 Condition: Good Prescriptions / Home Meds: No Action venlafaxine 150 mg capsule,extended release 24hr 150 mg PO DAILY tizanidine 4 mg tablet 4 mg PO BID propranolol 20 mg tablet 20 mg PO BID lurasidone 80 mg tablet 80 mg PO DAILY fluoxetine 10 mg capsule 10 mg PO BEDTIME ondansetron 4 mg tablet,disintegrating 4 mg PO Q6H PRN (Reason: nausea and vomiting) Qty: 20 0RF sumatriptan succinate [Imitrex] 100 mg tablet See Rx Instructions .ROUTE .COMPLEX Qty: 14 0RF Rx Instructions: take 1 tab at onset of headache; if no relief, may repeat 1 tab after at least 2 hrs; max = 2 tabs/24 hrs prazosin 1 mg capsule dicyclomine 20 mg tablet gabapentin 300 mg capsule buspirone 15 mg tablet Print Language: Setswana Instructions: Acute Nausea and Vomiting (ED), Acute Abdominal Pain (ED) Referrals: [facility] [Primary Care Provider, Unknown] - 1 week Discharge Date/Time: 10/29/24 04:39
[2024-10-29] MEDS: 0.9 % SODIUM CHLORIDE 1,000 ML 1000 ML IV ×2 (00:17→02:51)
[2024-10-29] MEDS: MORPHINE SULFATE 4 MG/ML VIAL IV (00:17)
[2024-10-29] MEDS: FAMOTIDINE/PF 20 MG/2 ML VIAL IV (00:18)
[2024-10-29] MEDS: ONDANSETRON PF 4 MG/2 ML VIAL IV ×2 (00:18→02:04)
[2024-10-29 00:29] LABS: Basophils Absolute Auto 0.1 10^3/uL (0.0-0.1); Basophils Percent Auto 0.6 % (0.2-2.0); Eosinophils Absolute Auto 0.4 10^3/uL (0.0-0.7); Eosinophils Percent Auto 4.1 % (0.9-7.0); Hematocrit 37.3 % (36.0-48.0); Hemoglobin 12.4 g/dL (12.0-16.0); Immature Granulocytes Abs Auto 0.06 10^3/uL (0.00-0.03); Immature Granulocytes Pct Auto 0.6 % (0.0-0.5); Lymphocytes Absolute Auto 2.7 10^3/uL (1.2-3.8); Lymphocytes Percent Auto 25.4 % (20.5-60.0); Mean Corpuscular HGB Conc 33.2 g/dL (29.9-35.2); Mean Corpuscular Hemoglobin 28.4 pg (26.7-34.0); Mean Corpuscular Volume 85.4 fL (81.0-99.0); Mean Platelet Volume 11.5 fL (9.5-13.5); Monocytes Absolute Auto 0.6 10^3/uL (0.3-0.8); Monocytes Percent Auto 5.3 % (1.7-12.0); Neutrophils Absolute Auto 6.9 10^3/uL (1.4-6.5); Platelet Count 353 10^3/uL (150-450); Red Blood Count 4.37 10^6/uL (4.20-5.40); Red Cell Distribution Width 14.8 % (11.0-15.0); White Blood Count 10.8 10^3/uL (4.0-11.0)
[2024-10-29 00:46] LABS: Alanine Aminotransferase 8 U/L (14-59); Albumin Globulin Ratio 0.8; Albumin Level 3.4 g/dL (3.4-5.0); Alkaline Phosphatase 105 U/L (46-116); Anion Gap 12.9; Aspartate Amino Transferase 11 U/L (15-37); BUN Creatinine Ratio 14.9; Bilirubin Total 0.3 mg/dL (0.2-1.0); Calcium 9.6 mg/dL (8.5-10.1); Chloride 100 mmol/L (98-107); Estimated GFR (African America >60 (>=60 mL/min/1.73m^2); Estimated GFR (Non-African Ame >60 (>=60 mL/min/1.73m^2); Globulin 4.4 g/dL; Glucose 114 mg/dL (74-106); Potassium 3.9 mmol/L (3.5-5.1); Sodium 134 mmol/L (136-145); Total Protein 7.8 g/dL (6.4-8.2)
[2024-10-29 00:48] LABS: Lactate/Lactic Acid 1.3 mmol/L (0.4-2.0)
[2024-10-29] MEDS: HYDROMORPHONE HCL 1 MG/ML CARTRIDGE IV (02:03)
[2024-10-29 02:55] VITALS: BP 134/78; PULSE 80; O2SAT 96
== END 2024-10-29 04:39 | disposition home or self-care (01) ==
PROVIDERS: Emergency Provider Emergency Medicine
DX: R10.13 Epigastric pain (principal); R11.2 Nausea with vomiting, unspecified; Z98.84 Bariatric surgery status; K43.9 Ventral hernia without obstruction or gangrene
CPT/HCPCS: 36415; 74177; 80053; 83605; 83690; 85025; 96361; 96374; 96375; 96376; 99285; J1171; J2270; J2405; J3490; Q9966; Q9967

== ENCOUNTER 2024-11-21 19:00 | Emergency (ER) | payer OTHER, SELFPAY ==
[2024-11-21 19:04] VITALS: BP 152/102; PULSE 110; TEMP 36.3; O2SAT 100; BMI 55.3
--- NOTE | 2024-11-21 19:22 | ED.URI1 ---
HPI - URI/Sore Throat General Chief Complaint: Upper Respiratory Infection Stated Complaint: COLD SYMPTOMS, FEVER, LOST VOICE Time Seen by Provider: 11/21/24 19:17 Source: patient Limitations: no limitations History of Present Illness HPI Narrative: presents ill for 3 days. sore throat, hoarse voice, fever and cough. No fever since last PM. Voice starting to return but still sore. cough occ productive. No chest pain or nausea Related Data Home Medications ?Medication ?Instructions ?Recorded ?Confirmed fluoxetine 10 mg capsule 10 mg PO BEDTIME 06/08/24 10/28/24 lurasidone 80 mg tablet 80 mg PO DAILY 06/08/24 10/28/24 propranolol 20 mg tablet 20 mg PO BID 06/08/24 10/28/24 tizanidine 4 mg tablet 4 mg PO BID 06/08/24 10/28/24 venlafaxine 150 mg 150 mg PO DAILY 06/08/24 10/28/24 capsule,extended release 24 hr buspirone 15 mg tablet mg 10/28/24 dicyclomine 20 mg tablet mg 10/28/24 gabapentin 300 mg capsule mg 10/28/24 prazosin 1 mg capsule mg 10/28/24 Previous Rx's ?Medication ?Instructions ?Recorded ondansetron 4 mg disintegrating 4 mg PO Q6H PRN nausea and 06/08/24 tablet vomiting #20 tabs sumatriptan succinate 100 mg See Rx Instructions PO .COMPLEX 06/08/24 tablet (Imitrex) #14 tabs Allergies Allergy/AdvReac Type Severity Reaction Status Date / Time bee venom protein (honey bee) Allergy Severe Anaphylaxis Verified 11/21/24 19:04 ibuprofen AdvReac Severe due to Verified 11/21/24 19:04 surgery artificial sweetener Allergy Anaphylaxis Uncoded 11/21/24 19:04 Review of Systems ROS Status of ROS 10 or more systems reviewed and unremarkable except as noted in history and below PFSH PFSH Social History Smoking status: Never smoker Little interest or pleasure in doing things: not at all Feeling down, depressed, or hopeless: not at all Exam Constitutional Vital Signs, click to edit/add: Last Vital Signs Temp 97.4 F L 11/21/24 19:04 Pulse 110 H 11/21/24 19:04 Resp 19 11/21/24 19:04 BP 152/102 H 11/21/24 19:04 Pulse Ox 100 11/21/24 19:44 O2 Del Method Room Air 11/21/24 19:44 Common normals: no apparent distress, average body habitus, oriented x3, no limitations, healthy appearing, alert and well nourished [facility] Common normals: normocephalic Throat: posterior oropharynx normal Respiratory Common normals: normal respiratory effort, no retractions, no use of accessory muscles and clear to auscultation bilaterally Cardio Common normals: regular rate, regular rhythm, S1 normal heart sound and S2 normal heart sound GI Common normals: Normal to inspection, nondistended, normoactive bowel sounds present, soft to palpation and non-tender Extremity Common normals: normal to inspection and full ROM Neuro Common normals: oriented x3, CN's II-XII intact bilaterally, moves all extremities and no focal motor deficits Psych Appearance: grossly normal Course Vital Signs Vital signs: Vital Signs Temperature 97.4 F L 11/21/24 19:04 Pulse Rate 110 H 11/21/24 19:04 Respiratory Rate 11/21/24 19:04 Blood Pressure 152/102 H 11/21/24 19:04 Pulse Oximetry 100 11/21/24 19:04 Oxygen Delivery Method Room Air 11/21/24 19:04 Temperature 97.4 F L 11/21/24 19:04 Pulse Rate 110 H 11/21/24 19:04 Respiratory Rate 19 11/21/24 19:04 Blood Pressure 152/102 H 11/21/24 19:04 Pulse Oximetry 100 11/21/24 19:44 Oxygen Delivery Method Room Air 11/21/24 19:44 MDM - URI/Sore Throat MDM Narrative Medical decision making narrative: ill for 3 days with sore throat, cough and fever. At one time she had completely loss her voice but it has returned. Not short of breath. rare productive cough. able to swallow without difficulty cxray clear, strep screen neg and WBC normal. Patient informed of working diagnosis of viral illness and discharged home with [facility] Lab Data Labs: Lab Results 11/21/24 11/21/24 Range/Units 19:30 20:00 WBC 10.6 (4.0-11.0) 10^3/uL RBC 4.17 L (4.20-5.40) 10^6/uL Hgb 11.6 L (12.0-16.0) g/dL Hct 36.2 (36.0-48.0) % MCV 86.8 (81.0-99.0) fL MCH 27.8 (26.7-34.0) pg MCHC 32.0 (29.9-35.2) g/dL RDW 14.6 (11.0-15.0) % Plt Count 324 (150-450) 10^3/uL MPV 11.9 (9.5-13.5) fL Neut % (Auto) 61.7 (43.0-75.0) % Lymph % (Auto) 25.4 (20.5-60.0) % [place] % (Auto) 6.6 (1.7-12.0) % Eos % (Auto) 4.9 (0.9-7.0) % Baso % (Auto) 0.8 (0.2-2.0) % Neut # (Auto) 6.5 (1.4-6.5) 10^3/uL Lymph # (Auto) 2.7 (1.2-3.8) 10^3/uL [place] # (Auto) 0.7 (0.3-0.8) 10^3/uL Eos # (Auto) 0.5 (0.0-0.7) 10^3/uL Baso # (Auto) 0.1 (0.0-0.1) 10^3/uL Abs Immat Gran (auto) 0.06 H (0.00-0.03) 10^3/uL Imm/Tot Granulo (auto) 0.6 H (0.0-0.5) % Sodium 142 (136-145) mmol/L Potassium 4.1 (3.5-5.1) mmol/L Chloride 108 H (98-107) mmol/L Carbon Dioxide 22.3 (21.0-32.0) mmol/L Anion Gap 15.8 BUN 12.0 (7.0-18.0) mg/dL Creatinine 0.57 (0.55-1.02) mg/dL Est GFR ( Amer) >60 (>=60 mL/min/1.73m^2) Est GFR (Non-Af Amer) >60 (>=60 mL/min/1.73m^2) BUN/Creatinine Ratio 21.1 Glucose 101 (74-106) mg/dL Calcium 8.9 (8.5-10.1) mg/dL Streptococcus Screen Negative Discharge Plan Discharge Chief Complaint: Upper Respiratory Infection Clinical Impression: Upper respiratory infection, Pharyngitis Patient Disposition: Home, Self-Care Prescriptions / Home Meds: No Action venlafaxine 150 mg capsule,extended release 24hr 150 mg PO DAILY tizanidine 4 mg tablet 4 mg PO BID propranolol 20 mg tablet 20 mg PO BID lurasidone 80 mg tablet 80 mg PO DAILY fluoxetine 10 mg capsule 10 mg PO BEDTIME ondansetron 4 mg tablet,disintegrating 4 mg PO Q6H PRN (Reason: nausea and vomiting) Qty: 20 0RF sumatriptan succinate [Imitrex] 100 mg tablet See Rx Instructions .ROUTE .COMPLEX Qty: 14 0RF Rx Instructions: take 1 tab at onset of headache; if no relief, may repeat 1 tab after at least 2 hrs; max = 2 tabs/24 hrs prazosin 1 mg capsule dicyclomine 20 mg tablet gabapentin 300 mg capsule buspirone 15 mg tablet Print Language: Lithuanian Instructions: Pharyngitis (ED), Upper Respiratory Infection (DC), Viral Syndrome (ED) Additional Instructions: drink plenty of fluids and follow up with your doctor in the next few days for recheck Referrals: [facility] [Primary Care Provider, Unknown] - 1 week
--- NOTE | 2024-11-21 19:25 | XR_ITS ---
The [address] [address] Patient Name: CHANDANA WASHINGTON MRN: [id number] date: 1975 Sex: F Assigned Patient Location: ER Current Patient Location: ER Accession/Order Number: [id number] Exam Date: 11/21/2024 19:48 Report Date: 11/21/2024 19:48 At the request of: LEI MARIA MD Procedure: XR chest 2V PA AND LATERAL CHEST: CLINICAL HISTORY: cough COMPARISON: None FINDINGS: Unremarkable cardiac silhouette. Lungs clear. No effusion or pneumothorax. XR/XR chest 2V IMPRESSION: NO ACUTE CARDIOPULMONARY ABNORMALITY. Impression dictated by: Chidi Winters M.D. 11/21/2024 7:48 PM Dictation Location: [place] [address] Electronically authenticated by: [id number] Date: 11/21/2024 19:48
[2024-11-21 19:44] VITALS: O2SAT 100
[2024-11-21 20:19] LABS: Hematocrit 36.2 % (36.0-48.0); Hemoglobin 11.6 g/dL (12.0-16.0); Immature Granulocytes Abs Auto 0.06 10^3/uL (0.00-0.03); Immature Granulocytes Pct Auto 0.6 % (0.0-0.5); Lymphocytes Absolute Auto 2.7 10^3/uL (1.2-3.8); Mean Corpuscular HGB Conc 32.0 g/dL (29.9-35.2); Mean Corpuscular Hemoglobin 27.8 pg (26.7-34.0); Mean Corpuscular Volume 86.8 fL (81.0-99.0); Platelet Count 324 10^3/uL (150-450); Red Blood Count 4.17 10^6/uL (4.20-5.40); White Blood Count 10.6 10^3/uL (4.0-11.0)
[2024-11-21] MEDS: ONDANSETRON 4 MG RAPDIS TABLET SL (20:23)
[2024-11-21] MEDS: KETOROLAC TROMETHAMINE 60 MG/2 ML VIAL IM (20:38)
[2024-11-21 20:41] LABS: Anion Gap 15.8; Blood Urea Nitrogen 12.0 mg/dL (7.0-18.0); Calcium 8.9 mg/dL (8.5-10.1); Carbon Dioxide 22.3 mmol/L (21.0-32.0); Chloride 108 mmol/L (98-107); Estimated GFR (African America >60 (>=60 mL/min/1.73m^2); Estimated GFR (Non-African Ame >60 (>=60 mL/min/1.73m^2); Glucose 101 mg/dL (74-106); Potassium 4.1 mmol/L (3.5-5.1); Sodium 142 mmol/L (136-145)
== END 2024-11-21 21:27 | disposition home or self-care (01) ==
PROVIDERS: Emergency Provider Internal Medicine
DX: J06.9 Acute upper respiratory infection, unspecified (principal); J02.9 Acute pharyngitis, unspecified; R50.9 Fever, unspecified; R05.9 Cough, unspecified; R49.0 Dysphonia
CPT/HCPCS: 36415; 71046; 80048; 85025; 87070; 87880; 96372; 99285; J1885; Q0162